=== PATIENT | female | born 1960 | race Caucasian/White ===

== ENCOUNTER 2023-01-05 12:51 | Outpatient (OUT) | payer OTHER, SELFPAY | END 2023-01-05 12:52 | disposition home or self-care (01) | LOC: PST 12:52 | PROVIDERS: PCP Family Medicine; Visit Provider Surgery | DX: Z01.818 Encounter for other preprocedural examination (principal); Z12.11 Encounter for screening for malignant neoplasm of colon ==

== ENCOUNTER 2023-01-14 09:09 | Day surgery (SDC) | payer OTHER, SELFPAY ==
--- NOTE | 2023-01-14 | OP_ITS ---
OPERATION DATE: ??01/14/2023 PREOPERATIVE DIAGNOSIS:? Colorectal screening. POSTOPERATIVE DIAGNOSIS:? Sigmoid polyps x2 with 2 mm and 3 mm polyps. PROCEDURE:? Colonoscopy to cecum with cold snare polypectomy x2. SURGEON:? Rohit Valdez M.D. ANESTHESIA:? Monitored anesthesia care. ESTIMATED BLOOD LOSS:? Less than 1 mL. INDICATIONS AND CONSENT:? Patient is a 62-year-old female who presents for colorectal screening.? Indications, risks, benefits, alternatives of proceeding with colonoscopy were explained extensively to the patient, including the risks of bleeding, colon perforation or anesthetic complications.? All of her questions were answered.? Informed consent was obtained. PROCEDURE:? Patient brought to the operating room, placed in the left lateral decubitus position.? Monitored anesthesia care was provided.? Rectal exam was performed which showed no masses or blood.? The scope was inserted into the anal canal.? Under direct visualization was advanced.? It was advanced to the cecum where cecal markings were clearly identified.? There was noted to be a good prep.? Upon withdrawal of the scope, mucosal surfaces were carefully examined.? There were no mass lesions or inflammatory changes.? There was rare sigmoid diverticula.? Within the sigmoid colon, there was noted to be a 2 mm and then a more distal 3 mm sessile polyp.? These were removed with cold snare with good hemostasis.? The scope was retroflexed in the anal canal.? There was no significant hemorrhoidal disease.? Scope was then withdrawn.? Patient tolerated procedure well, was sent to recovery room in good condition. Follow up colonoscopy will likely be in five years, but will depend on the pathology report. CC:? Iris Erickson
[2023-01-14 09:22] VITALS: BP 131/101; PULSE 117; RESP 16; TEMP 36.2; O2SAT 96; BMI 23.1
[2023-01-14 09:39] VITALS: BP 136/82
[2023-01-14] MEDS: LACTATED RINGER'S SOLUTION 1,000 ML 50 ML IV (09:39)
[2023-01-14 11:52] VITALS: BP 143/81; PULSE 86; RESP 20; TEMP 36.2; O2SAT 96
[2023-01-14 12:07] VITALS: BP 143/85; PULSE 78; RESP 18; O2SAT 97
[2023-01-14 12:22] VITALS: BP 165/78; PULSE 78; RESP 18; O2SAT 98
== END 2023-01-14 12:22 | disposition home or self-care (01) ==
PROVIDERS: PCP Family Medicine; Visit Provider Surgery
PROC: (CPT 45385; principal; 2023-01-14 09:55)
DX: Z12.11 Encounter for screening for malignant neoplasm of colon (principal); D12.5 Benign neoplasm of sigmoid colon; Z87.891 Personal history of nicotine dependence; E78.2 Mixed hyperlipidemia; Z90.49 Acquired absence of other specified parts of digestive tract; Z85.828 Personal history of other malignant neoplasm of skin; Z79.899 Other long term (current) drug therapy; J44.9 Chronic obstructive pulmonary disease, unspecified
CPT/HCPCS: 45385; 88305; J2704

== ENCOUNTER 2023-06-15 16:45 | Outpatient (OUT) | payer OTHER, SELFPAY ==
--- NOTE | 2023-06-15 17:05 | XR_ITS ---
[address] [address] Patient Name: PETRONA GORDON MRN: [id number] date: 1960 Sex: F Assigned Patient Location: [facility] Current Patient Location: Accession/Order Number: [id number] Exam Date: 06/15/2023 17:00 Report Date: 06/16/2023 07:12 At the request of: MIGUELANGEL VILLATORO Procedure: XR ribs LT min 3V w CXR1V EXAMINATION: XR ribs LT min 3V w CXR1V HISTORY: acute left side chest wall pain R07.89 COMPARISON: 10/16/2016 FINDINGS: LUNGS: No significant pulmonary parenchymal abnormalities. Hyperinflation PLEURA: No pneumothorax, effusion, or pleural thickening. MEDIASTINUM: No visible mass or adenopathy. CARDIAC: No cardiomegaly or cardiac silhouette abnormality. RIBS: No acute rib fracture OTHER: Negative. XR/XR ribs LT min 3V w CXR1V IMPRESSION: Clear lungs No acute rib fracture Electronically authenticated by: LOLIS CALLAWAY Date: 06/16/2023 07:12
== END 2023-06-15 16:46 | disposition home or self-care (01) ==
PROVIDERS: PCP Family Medicine; Visit Provider Nurse Practitioner Family
DX: R07.89 Other chest pain (principal)
CPT/HCPCS: 71101

== ENCOUNTER 2023-07-31 11:55 | Outpatient (OUT) | payer OTHER, SELFPAY ==
--- OUTSIDE RECORDS SUMMARY | 2023-07-31 11:59 | XMS_ITS | CCD ---
Author Name Unknown Address [address] [place] [address] Organization [facility] Care Team Providers Care Video Game Engineer Name Role Phone Janice Rahman Unavailable DO Rohith Archer Primary Care Provider JETHRO Rahman Attending Provider [phone] Janice Rahman Attending Unavailable Janice Rahman Admitting Unavailable Rohith Archer Primary Care Unavailable FURLONG, DR ROHITH Martin Admitting Unavailable FURLONG, DR ROHITH Martin Attending Unavailable FURLONG, DR ROHITH Martin Consulting Unavailable FURLONG, DR ROHITH Martin Primary Care Unavailable EASTOVER, DR LOLIS Haider Consulting Unavailable FURLONG, DR ROHITH Martin Primary Care Unavailable FURLONG, DR ROHITH Martin Admitting Unavailable FURLONG, DR ROHITH Martin Attending Unavailable FURLONG, DR ROHITH Martin Consulting Unavailable MARCELO, DR GABRIEL Toro Consulting Unavailable ROHITH ARCHER Referring Unavailable Rohit YEH Attending Unavailable Rohit YEH Attending Unavailable Furlong Rohith KAPOOR Primary Care Provider ANAIS MUÑOZ Attending Unavailable ROHITH ARCHER Referring Unavailable ROHITH ARCHER Primary Care Unavailable SARAY GEORGE Attending Unavailable ANAIS MUÑOZ Referring Unavailable ROHITH ARCHER Primary Care Unavailable SARAY GEORGE Attending Unavailable ANAIS MUÑOZ Referring Unavailable ROHITH ARCHER Primary Care Unavailable Allergies Allergy Classification Reported Allergen(s) Allergy Type Date of Onset Reaction(s) Facility (1 source) Unable to Assess Drug allergy (disorder) [facility] Repository (1 source) No Known Medication Allergies; Translations: [No Known Medication Allergies] Propensity to adverse reactions (disorder) [facility] Repository Medications Current Medications Medication Drug Class(es) Dates Sig (Normalized) Sig (Original) [id number] 200 actuat albuterol 0.09 mg/actuat metered dose inhaler (4 sources) beta2-Adrenergic Agonist Start: 04-23-2023 take 2 puff(s) by inhalation every six hours as needed albuterol (PROVENTIL HFA;VENTOLIN HFA) 90 mcg/actuation inhaler Inhale 2 puffs every 6 (six) hours as needed. 0 04/23/2023 Active atorvastatin 20 mg oral tablet (8 sources) HMG-CoA Reductase Inhibitor Start: 08-25-2022 End: 05-30-2023 take 1 tablet by mouth in the morning atorvastatin (LIPITOR) 20 mg tablet Indications: Mixed hyperlipidemia TAKE 1 TABLET (20 MG TOTAL) BY MOUTH IN THE MORNING 90 tablet 1 05/30/2023 Active Atorvastatin Asher cium Active azithromycin 250 mg oral tablet (1 source) Macrolide Antimicrobial Start: 11-30-2021 Azithromycin 250 MG 2 tablet on the first day, then 1 tablet daily for 4 days Orally Once a day for 5 day(s) Nov, Active calcium polycarbophil 625 mg oral tablet (4 sources) Start: 12-16-2022 polycarbophil (FIBER, CALCIUM POLYCARBOPHIL,) 625 mg tablet Take 1 tablet (625 mg total) by mouth. 0 12/16/2022 Active cyclobenzaprine hydrochloride 5 mg oral tablet (1 source) Muscle Relaxant Start: 02-14-2019 take 1 tablet by mouth every eight hours Cyclobenzaprine HCl 5 MG 1 tablet as needed Orally Three times a day Jan, Active 120 actuat formoterol fumarate 0.0048 mg/actuat / glycopyrrolate 0.009 mg/actuat metered dose inhaler (6 sources) beta2-Adrenergic Agonist take 2 puff(s) by inhalation in the morning glycopyrrolate-form oteroL (BEVESPI AEROSPHERE) 9-4.8 mcg HFA aerosol inhaler Inhale 2 puffs in the morning and 2 puffs before bedtime. 0 Active Bevespi Aerosphe re 9-4.8 MCG/ACT INHALE 2 PUFFS INTO THE LUNGS TWICE A DAY FOR 30 DAYS Inhalation for 30 Days Active meloxicam 15 mg oral tablet (3 sources) Nonsteroidal Anti-inflammatory Drug Start: 06-17-2023 End: 07-02-2023 take 1 tablet by mouth in the morning meloxicam (MOBIC) 15 mg tablet Take 1 tablet (15 mg total) by mouth in the morning for 15 days. 15 tablet 0 06/17/2023 07/02/2023 Active predniSONE 20 mg oral tablet (2 sources) Start: 05-31-2022 take 1 tablet by mouth every twelve hours predniSONE 20 MG 1 tablet Orally 2 times a day for 5 day(s) May, Active Start: 11-30-2021 take 1 tablet by espinoza th every twelve hours predniSONE 20 MG 1 tablet Orally 2 times a day for 5 day(s) Nov, Active ubidecarenone 30 mg oral capsule (4 sources) take 10 capsules by mouth once in the morning coenzyme Q10 30 mg capsule Take 200 mg by mouth in the morning. 0 Active Completed/Discontinued Medications Medication Drug Class(es) Dates Sig (Normalized) Sig (Original) methylPREDNISolone (3 sources) Corticosteroid Start: 12-08-2022 End: 06-15-2023 methylPREDNISolone (MEDROL, TITUS,) 4 mg tablet Indications: Dysfunction of left eustachian tube follow package directions 21 tablet 0 12/08/2022 06/15/2023 Discontinued (Therapy completed) Start: 12-08-2022 methylPREDNISo lone (MEDROL, TITUS,) 4 mg tablet Indications: Dysfunction of left eustachian tube follow package directions 21 tablet 0 12/08/2022 Active Start: 02-14-2019 Medrol (Titus) 4 MG half of daily dose in the morning with food and the rest at night with food Orally Jan, Active Problems Active Problems Problem Classification Problem Date Documented Da te Episodic/Chronic Cardiac dysrhythmias (2 sources) Ventricular premature complex; Translations: [Ventricular premature depolarization] Onset: 07-17-2023 07-01-2023 Chronic Disorders of lipid metabolism (5 sources) Mixed hyperlipidemia; Translations: [Mixed hyperlipidemia] Onset: 06-15-2023 05-30-2023 Chronic Immunizations and screening for infectious disease (3 sources) Encounter for screening for other viral diseases; Translations: [Contact with and (suspected) exposure to other viral communicable diseases] Onset: 04-17-2021 Resolved: 04-17-2021 Episodic Nonspecific chest pain (8 sources) Chest pain, unspecified; Translations: [Chest wall pain] Onset: 05-31-2022 Episodic Other lower respiratory disease (1 source) Cough Onset: 06-15-2023 Episodic Pleurisy; pneumothorax; pulmonary collapse (1 source) Pleurisy Episodic Retinal detachments; defects; vascular occlusion; and retinopathy (4 sources) 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; Translations: [Exudative age-related macular degeneration, right eye, stage unspecified] Onset: 07-03-2020 06-15-2023 Chronic Past or Other Problems Problem Classification Problem Date Documented Da te Episodic/Chronic Mood disorders (5 sources) Mood disorders Onset: 12-08-2022 Resolved: 06-15-2023 12-08-2022 Other nutritional; endocrine; and metabolic disorders (5 sources) Overweight; Translations: [Overweight] Onset: 08-25-2022 08-25-2022 Episodic Screening and history of mental health and substance abuse codes (9 sources) Personal history of nicotine dependence; Translations: [Ex-cigarette smoker] Onset: 08-25-2022 Episodic Spondylosis; intervertebral disc disorders; other back problems (4 sources) Cervicalgia; Translations: [CERVICALGIA] Onset: 10-12-2021 Episodic Viral infection (1 source) COVID-19 Onset: 11-30-2021 Resolved: 11-30-2021 Results Test Name Value Interpretation Reference Range Facility POCT EKGOrdered By: Cami quezada on 06-15-2023 [facility] Outside Colonoscopyon 2022 Outside Colonoscopy [id number]#1.00CD:127 Normal [facility] Pathology Noteon 01-21-2023 Pathology Note [id number] #1.00CD:127 Normal [facility] Reminderson 01-21-2023 Reminders - From: Elisa Patel LPN To: GSN - Clinical; Sent: 01/21/2023 10:07:40 EDT Show up: 12/15/2027 07:00:00 EDT Subject: colonoscopy recall Due Date/Time: 01/15/2028 07:00:00 EDT Reminder/Recall Patient due for surveillance colonoscopy 01/15/2028. [facility] Insurance Correspondenceon 0 12-26-2022 Insurance Correspondence [id number]#1.00CD:127 [facility] Consent for Procedure/Surger yon 12-17-2022 Consent for Procedure/Surgery [id number] #1.00CD:127 [facility] Facesheeton 12-17-2022 Facesheet [id number] #1.00CD:127 [facility] Ambulatory Visit Summaryon 0 12-16-2022 Ambulatory Visit Summary PETRONA GORDON :1960 Visit Date:12/16/2022 Ambulatory Visit Instructions Your Diagnosis Screening for malignant neoplasm of colon Your Care Team Attending Physician - Rohit YEH MD Primary Care Physician - ROHITH ARCHER DO Referring Physician - ROHITH ARCHER DO This Is Your Medications List Contact prescribing physician if questions or concerns atorvastatin (atorvastatin 20 mg Tab) polycarbophil (Fiber Tabs 625 mg oral tablet) Procedures Performed Cholecystectomy, Excision of basal cell carcinoma, Excision of cyst, T-tube track gallstone extraction, Tonsillectomy, Tubal ligation. Discharge Vitals Heart Rate (Peripheral) 62 Respiratory Rate 16 Blood Pressure 114/64 Height 160 cm Height 63 in Weight 62.3 kg Weight 137.06 lb BMI 24.34 Medications What How Much When Instructions Unchanged atorvastatin (atorvastatin 20 mg Tab) 1 Tablets By Mouth Every day Contact prescribing physician if questions or concerns Unchanged polycarbophil (Fiber Tabs 625 mg oral tablet) 1 Tablets By Mouth Every day Contact prescribing physician if questions or concerns Allergies No Known Allergies No Known Medication Allergies Problems Ongoing - Any problem that you are currently receiving treatment for. BMI 24.0-24.9, adult Ex-cigarette smoker Macular degeneration Mixed hyperlipidemia Overweight Screening for malignant neoplasm of colon Normal [facility] Physician Referralon 023 Physician Referral [id number] #1.00CD:127 Normal [facility] CT LUNG CANCER SCREENINGon 0 09-29-2022 CT LUNG CANCER SCREENING EXAMINATION: CT LUNG CANCER SCREENING HISTORY: Nicotine dependence COMPARISON: CT LUNG CANCER SCREENING 09/26/2021, 07/30/2019 TECHNIQUE: Axial, Coronal, and Sagittal images were created without the administration of IV contrast material. Dose reduction techniques were achieved by using automated exposure control and/or adjustment of mA and/or kV according to patient size and/or use of iterative reconstruction technique. FINDINGS: LUNGS: No visible pulmonary disease. Stable appearance of a few tiny questionable densities; no suspicious nodules. PLEURA: No mass, effusion, or pneumothorax. VASCULATURE: No abnormality. JOSE: No mass or pathologic adenopathy. MEDIASTINUM: No mass or pathologic adenopathy. CARDIAC: No enlargement, pericardial thickening, or significant calcification. AORTA: No aneurysm or dissection. CHEST WALL: No mass or axillary adenopathy BONES: No bone lesion or fracture. LIMITED ABDOMEN: No suspicious findings. Limited images of the upper abdomen. OTHER: Negative. IMPRESSION: 1. Lung-RADS Category 1 Negative. No nodules and definitely benign nodules. Continue annual screening with LDCT in 12 months. Electronically authenticated by: GABRIEL ROBERTSON Date: 2022-09-29 17:03 Normal [facility] COVID + FLU Quick Testingon 05-31-2022 SARS-CoV-2 (COVID-19) RNA MILAN+probe Ql (Unsp spec) Negative [employer] Other COVID + FLU Quick Testing Negative [employer] Other XR chest 2V*on 05-31-2022 XR chest 2V* [facility] [place] [address] [place] [address] XRay Report Signed Patient: Petrona Gordon MR#: [id number] : 1960 Acct:[id number] Age/Sex: 61 / F ADM Date: 05/31/22 Loc: XDUCLY Room: Type: [facility] Attending Dr: Jaincekaylee MORELOS Copies to: JETHRO Robles Ordering Provider: JETHRO Robles Date of Service: 05/31/22 XR/XR chest 2V*: COUGH PA AND LATERAL CHEST: CLINICAL HISTORY: Chest tightness on the right and productive cough COMPARISON: None The lungs are hyperinflated. There are minor chronic changes. There is no focal parenchymal consolidation, effusion or pneumothorax. The cardiac, hilar and mediastinal silhouettes are within normal limits. There is no vascular congestion. The visualized bony thorax is intact. Endplate spurring is present. XR/XR chest 2V* IMPRESSION: OBSTRUCTIVE LUNG DISEASE. NO ACUTE CARDIOPULMONARY ABNORMALITY. Impression dictated by: Keyonna Head M.D.05/31/2022 1:14 PM Dictation Location: [place] [address] Transcribed By: LAUREEN 05/31/22 1314 Dictated By: Keyonna Head MD 05/31/22 1313 Signed By: 05/31/[address] [facility] XR chest 2V* [facility] [employer] Other XR chest 2V* [facility] [employer] Other XR chest 2V* [address] [place] [address] [employer] Other XR chest 2V* [place] [address] [facility] [employer] Other XR chest 2V* XRay Report [employer] Other XR chest 2V* Signed [employer] Other XR chest 2V* Patient: Petrona Gordon MR#: [id number] [employer] Other XR chest 2V* [id number] [employer] Other XR chest 2V* : 1960 Acct:[id number] [employer] Other XR chest 2V* Age/Sex: 61 / F ADM Date: 05/31/22 [employer] Other XR chest 2V* Loc: XDUCLY Room: Type: REG CLI [employer] Other XR chest 2V* Attending Dr: Janice MORELOS [employer] Other XR chest 2V* Copies to: JETHRO Robles [employer] Other XR chest 2V* Ordering Provider: JETHRO Robles [employer] Other XR chest 2V* Date of Service: 05/31/22 [employer] Other XR chest 2V* XR/XR chest 2V*: COUGH [employer] Other XR chest 2V* PA AND LATERAL CHEST: [employer] Other XR chest 2V* CLINICAL HISTORY: Chest tightness on the right and productive cough [employer] Other XR chest 2V* COMPARISON: None [employer] Other XR chest 2V* The lungs are hyperinflated. There are minor chronic changes. There is no focal parenchymal [employer] Other XR chest 2V* consolidation, effusion or pneumothorax. The cardiac, hilar and mediastinal silhouettes are within [employer] Other XR chest 2V* normal limits. There is no vascular congestion. The visualized bony thorax is intact. Endplate [employer] Other XR chest 2V* spurring is present. No rt [employer] Other XR chest 2V* XR/XR chest 2V* [employer] Other XR chest 2V* IMPRESSION: [employer] Other XR chest 2V* OBSTRUCTIVE LUNG DISEASE. [employer] Other XR chest 2V* NO ACUTE CARDIOPULMONARY ABNORMALITY. [employer] Other XR chest 2V* Impression dictated by: Keyonna Head M.D.05/31/2022 1:14 PM [employer] Other XR chest 2V* Dictation Location: [place] [address] [employer] Other XR chest 2V* Transcribed By: [facility] 05/31/22 131 [employer] Other XR chest 2V* Dictated By: Keyonna Head MD 05/31/22 1313 [employer] Other XR chest 2V* Signed By: [employer] Other XR chest 2V* 05/31/22 131 [employer] [facility] [employer] Other COVID Quick Testingon 2021 Result Positive [employer] Other XR CSPINE 2_3 VIEWSon 2021 XR CSPINE 2_3 VIEWS EXAMINATION: XR CSPINE 2_3 VIEWS HISTORY: Neck pain COMPARISON: No relevant comparison available. FINDINGS: BONES: Normal alignment of the cervical vertebral bodies with no acute fracture. 2 mm retrolisthesis of C5.. Mild to moderate degenerative spondylosis and facet osteoarthropathy, most significant along the posterior margin of C5 encroaching on the central canal 3 mm DISC SPACES: Multilevel disc space narrowing, moderate at C5-C6 and C6-C7 PARASPINOUS: Negative. No paraspinous abnormality is seen. OTHER: Negative. IMPRESSION: [id number] degenerative changes most significant at C5-C6 Electronically authenticated by: LOLIS CALLAWAY Date: 2021-10-14 07:09 Normal [facility] COVID Quick Testingon 2020 Result Negative [employer] Other Vital Signs Date Time Vital Sign Value Performing Clinician Facility 06-15-2023 15:31-0500 Body height 160 cm Anais Muñoz ALVA-SHIP'S MASTER Work Phone: [employer] 06-15-2023 15:31-0500 Body mass index (BMI) [Ratio] 24.13 kg/m2 Anais [facility]ORANSHIP'S MASTER [facility] 06-15-2023 15:31-0500 Body temperature 97.81 [degF] Anais Muñoz APRNMaishaSHIP'S MASTER [facility] 06-15-2023 15:31-0500 Body weight 61.78 kg Anais MORANSHIP'S MASTER [facility] 06-15-2023 15:31-0500 Diastolic blood pressure 60 mm[Hg] Anais MORANSHIP'S MASTER [facility] 06-15-2023 15:31-0500 Heart rate 81 /min Anais MORANSHIP'S MASTER [facility] 06-15-2023 15:31-0500 SaO2% (BldA) [Mass fraction] 94 % Anais MORANSHIP'S MASTER [facility] 06-15-2023 15:31-0500 Systolic blood pressure 110 mm[Hg] Anais MORANSHIP'S MASTER Work Phone: [employer] 05-31-2022 13:30-0500 Body height 160.02 cm Janice Rahman Other [employer] Other 05-31-2022 13:30-0500 Body mass index (BMI) [Ratio] 26.04 kg/m2 Janice Rahman Other [employer] Other 05-31-2022 13:30-0500 Body temperature 97.8 [degF] Janice Rahman Other [employer] Other 05-31-2022 13:30-0500 Body weight 66.68 kg Janice Lacey Other [employer] Other 05-31-2022 13:30-0500 Diastolic blood pressure 74 mm[Hg] Janice Lacey Other [employer] Other 05-31-2022 13:30-0500 Respiratory rate 18 /min Janice Lacey Other [employer] Other 05-31-2022 13:30-0500 SaO2% (BldA) [Mass fraction] 98 % Janice Lacey Other [employer] Other 05-31-2022 13:30-0500 Systolic blood pressure 118 mm[Hg] Janice Lacey Other [employer] Other 11-30-2021 15:35-0400 Body height 160.02 cm Janice Lacey Other [employer] Other 11-30-2021 15:35-0400 Body mass index (BMI) [Ratio] 25.68 kg/m2 Janice Lacey Other [employer] Other 11-30-2021 15:35-0400 Body temperature 97.7 [degF] Janice Lacey Other [employer] Other 11-30-2021 15:35-0400 Body weight 65.77 kg Janice Lacey Other [employer] Other 11-30-2021 15:35-0400 Respiratory rate 18 /min Janice Lacey Other [employer] Other 11-30-2021 15:35-0400 SaO2% (BldA) [Mass fraction] 96 % Janice Rahman Other [employer] Other Encounters Encounter Date Encounter Type Care Provider Facility Start: 07-17-2023 End: 07-18-2023 ambulatory [facility] Start: 07-01-2023 Orders Only Anais Muñoz INTERACTIVE GRAPHIC DESIGNER-SHIP'S MASTER Work Phone: [facility] Comment on above: Other chest pain (Pr imary Dx); Ventricular premature depolarization Start: 06-29-2023 End: 06-30-2023 ambulatory [facility] Start: 06-17-2023 Orders Only Anais Muñoz INTERACTIVE GRAPHIC DESIGNER-SHIP'S MASTER Work Phone: [facility] Comment on above: Acute chest wall erwin n (Primary Dx) Other chest pain (Pr imary Dx) Start: 06-15-2023 End: 06-15-2023 ambulatory [facility] Start: 06-15-2023 End: 06-15-2023 Office outpatient visit 15 minutes Anais Muñoz INTERACTIVE GRAPHIC DESIGNER-SHIP'S MASTER Work Phone: [facility] Comment on above: Acute chest wall erwin n (Primary Dx) Start: 05-30-2023 Refill Rohith gramajo DO Work Phone: [facility] Comment on above: Mixed hyperlipidemia Start: 01-14-2023 End: 01-15-2023 ambulatory Rohit YEH Facility:CD:[id number] Start: 12-16-2022 End: 12-17-2022 ambulatory ROHITH ARCHER Facility:[facility] Start: 11-27-2022 ambulatory ROHITH ARCHER Facility :[facility] Start: 09-29-2022 End: 09-30-[address] ROHITH ARCHER Facility:[facility] Start: 05-31-2022 End: 05-31-2022 ambulatory Janice Rahman Facility:[facility] Start: 05-31-2022 Office outpatient vi sit 25 minutes Janicekaylee Rahman [facility] Start: 05-31-2022 End: 05-31-2022 ambulatory DO Rohith Lakelong Work Phone: [facility] Work Phone: Start: 05-31-2022 End: 05-31-2022 Patient encounter procedure DO Rohith Lakelong Work Phone: [facility] Work Phone: Start: 11-30-2021 End: 11-30-2021 ambulatory Janice Rahman Other [employer] Other Start: 11-30-2021 Office outpatient vi sit 15 minutes Janicekaylee Rahman [facility] Start: 10-12-2021 End: 10-13-[address] ROHITH ARCHER Facility: Start: 04-17-2021 End: 04-17-2021 ambulatory Janice Rahman Other [employer] Other Start: 04-17-2021 Office outpatient vi sit 5 minutes Janicekaylee Rahman [facility] Procedures Date Procedure Procedure Detail Performing Clinician Start: 06-15-2023 Ecg routine ecg w/le ast 12 lds w/i&r Anais Muñoz INTERACTIVE GRAPHIC DESIGNER-SHIP'S MASTER Work Phone: Start: 06-15-2023 Adult depression scr eening assessment Anais Muñoz INTERACTIVE GRAPHIC DESIGNER-SHIP'S MASTER Work Phone: Start: 01-14-2023 Colonoscopy Rohith Fur long DO Work Phone: Start: 12-08-2022 Adult depression scr eening assessment Rohith Furlong DO Work Phone: Start: 05-31-2022 Plain chest X-ray DO De nnis Furlong Work Phone: Plan of Treatment Date Care Activity Detail Author Start: 01-14-2033 Screening for malign ant neoplasm of colon Colonoscopy [facility] Start: 03-22-2029 DTaP,Tdap and Td Vaccines (2 - Td or Tdap) DTaP,Tdap and Td Vaccines (2 - Td or Tdap) [facility] Start: 06-29-2024 Adult BMI Screening Adult BMI Screen ing [facility] Start: 06-15-2024 Adult BMI Screening Adult BMI Screen ing [facility] Start: 06-15-2024 Depression Screening Depression Scre ening [facility] Start: 06-15-2024 Tobacco Screening Tobacco Screening [facility] Start: 12-09-2023 Adult BMI Screening Adult BMI Screen ing [facility] Start: 12-09-2023 Depression Screening Depression Scre ening [facility] Start: 12-09-2023 Tobacco Screening Tobacco Screening [facility] Start: 07-01-2023 End: 07-01-2024 Echo stress treadmill W/O contrast Echo stress treadmill W/O contrast Cardiac Services Routine Other chest pain Ventricular premature depolarization Expected: 07/01/2023, Expires: 07/01/2024 [employer] Work Phone: Comment on above: Expected: 07/01/2023 , Expires: 07/01/2024 Start: 06-17-2023 End: 06-17-2024 Exercise stress test study Stress test (exercise only) Cardiac Services Routine Other chest pain Expected: 06/17/2023, Expires: 06/17/2024 [employer] Work Phone: Comment on above: Expected: 06/17/2023 , Expires: 06/17/2024 Start: 06-15-2023 End: 06-15-2024 XR Ribs - left Views and Chest PA X-ray ribs left 3 views with pa chest Imaging Routine Acute chest wall pain Expected: 06/15/2023, Expires: 06/15/2024 [employer] Work Phone: Comment on above: Expected: 06/15/2023 , Expires: 06/15/2024 Start: 01-23-2023 COVID-19 Vaccine () COVID-19 Vaccine () [facility] Start: 01-23-2023 Influenza vaccination Influenza Vacc ine [facility] Start: 2010 Administration of varicella zoster vaccine Zoster (Shingles) Vaccine (1 of 2) [facility] Start: 1981 Screening for malign ant neoplasm of cervix Pap Smear [facility] Immunizations Immunization Date Immunization Notes Care Provider Greg marquez 03-22-2019 influenza virus vaccine, unspecified formulation Rohith Archer DO Work Phone: [facility] Payers Date Payer Category Payer Self-pay [id number] 2016 Private Health Insurance [employer]I ALANIS POS II [id number] 2016-Present [phone] [address] [place] [address] [id number] 1960 Unknown [id number] 1960 Unknown [id number] 1960 Unknown [id number] 1960 Unknown [id number] 1960 Unknown [id number] 1960 Unknown [id number] .1286 1960 Unknown [id number] 1959 Private Health Insurance [id number] Private Health Insurance 3 [id number] Unknown [id number] .531 Social History Date Type Detail Facility Unknown if ever smoked [facility] [facility] [employer] Other Start: 08-25-2022 End: 06-15-2023 Sex Assigned At [facility] [employer] Other Start: 1960 Sex Assigned At Female [facility] Start: 08-25-2022 Tobacco smoking status NHIS Ex-smoker [facility] Start: 11-17-1973 End: 11-28-2020 History of tobacco use Current smoker [facility] Start: 11-17-1973 End: 11-28-2020 History of tobacco use Cigarette Smoker [facility] Start: 08-25-2022 End: 06-15-2023 Cigarettes smoked current (pack per day) - Reported 1 [facility] Start: 08-25-2022 Tobacco use and exposure Smokeless tobacco non-user [facility] Start: 01-22-2023 End: 06-29-2023 Alcohol intake Lifetime non-drinker (finding) [facility] Do you belong to any clubs or organizations such as adventism groups, unions, fraternal or athletic groups, or school groups? No [facility] Are you now , , , , never or living with a partner? Never [facility] How often to you hav e a drink containing alcohol? Never [facility] How many standard dr inks containing alcohol do you have on a typical day? Patient does not drink [facility] Do you feel stress - tense, restless, nervous, or anxious, or unable to sleep at night because your mind is troubled all the time - these days [OSQ] Only a little [facility] Start: 1960 Sex Assigned At Not on file [facility] Clinical Notes 04-17-2021 to 06-15-2023 Anais Muñoz, ALVA-SHIP'S MASTER - 06/15/2023 3:20 PM EST Note Date & Type Note Facility 06-15-2023 History of Present illness Narrative Subjective Patient ID: Petrona Gordon is a 62 y.o. female. She started with what she thought was a chest cold about 3 weeks ago It hurts when she moves a certain way It covarrubias\sn't hurt to take in a deep breath just when she moves, it does hurt at times when she coughs She did fall on her knee at work but no injury to her knee Initial symptoms were cough and chest discomfort and she took tylenol cold No fever or chills No loss of appetite She is an ex-smoker and had her screening lung scan in September and she does this yearly Cough is somewhat productive - and this is typical for her The pain goes all the way thru to her back and is right in her shoulder blade Denies any shortness of breath and it is not exertional She denies any indigestion or heartburn but the pain has been very persistent and is worsening rather than getting better She points to the point anterior left chest wall and posterior scapula Lifting her left arm above her head reproduces the pain She is up to date on her mammogram as well The following portions of the patient's history were reviewed and updated as appropriate: allergies, current medications, past family history, past medical history, past social history, past surgical history, problem list, and medication reconciliation was completed including current medication and post discharge medication. Review of Systems Objective Physical Exam Vitals reviewed. Constitutional: Appearance: She is normal weight. HENT: Head: Normocephalic. Mouth/Throat: Mouth: Mucous membranes are moist. Comments: Voice raspy Eyes: Conjunctiva/sclera: Conjunctivae normal. Neck: Vascular: No carotid bruit. Cardiovascular: Rate and Rhythm: Normal rate and regular rhythm. Pulses: Normal pulses. Heart sounds: Normal heart sounds. No murmur heard. Pulmonary: Effort: Pulmonary effort is normal. Breath sounds: Normal breath sounds. Musculoskeletal: General: No tenderness. Right lower leg: No edema. Left lower leg: No edema. Comments: Unable to reproduce chest wall pain until she lifted her left arm to shoulder level Lymphadenopathy: Cervical: No cervical adenopathy. Skin: General: Skin is warm and dry. Capillary Refill: Capillary refill takes less than 2 seconds. Neurological: Mental Status: She is alert and oriented to person, place, and time. Psychiatric: Mood and Affect: Mood normal. Thought Content: Thought content normal. Assessment/Plan Petrona was seen today for cough. Diagnoses and all orders for this visit: Acute chest wall pain - X-ray ribs left 3 views with pa chest; Future - POCT EKG Her EKG today was unremarkable Will get an x-ray of her chest and left ribs for further evaluation Review of her CT chest 10/14 did not reveal any sources of concern Unsure of the etiology of the pain, does not seem to be cardiac, pulmonary, or epigastric however if no source of pathology is noted on the x-ray would get stress test No reproducible pain except with movement ZI Casey 06/15/23 1741 documented in this encounter [facility] 12-16-2022 Note Chief Complaint consultation for screening colonoscopy HPI Staff 62 year old female presents on consultation from Dr. Archer for screening colonoscopy. Denies abdominal or rectal pain. No rectal bleeding or change in bowel habits. Denies nausea or vomiting. No unexplained weight loss. Never had colonoscopy in the past. No known family history of colon cancer. History of Present Illness 62 yo female with h/o hyperlipidemia, COPD, referred for colorectal screening; denies change in bms or blood in stools; no abdominal complaints; denies asa or NSAID use, no SBE prophylaxis; abdominal operations significant for open cholecystectomy and tubal ligation, no previous colonoscopy; no fmhx of GI malignancy or IBD; former smoker, quit 2 years ago. Review of Systems PHQ Score Initial Depression Screen Score: 0 ROS - Provider Constitutional: no fever, no sweats, no weight loss. Eyes: yes glasses, no blurred vision, no visual loss. ENMT: no dentures, no hoarseness, no swallowing difficulties, no hearing loss, no ear infection(s), no nose bleeds. Cardiovascular: normal blood pressure, no chest pain, regular heartbeat, no heart murmur. Respiratory: no shortness of breath, no cough, no asthma, no wheezing. Gastrointestinal: no nausea, no vomiting, no diarrhea, no constipation, no blood in stool, no change in bowel habits, no abdominal pain, no hepatitis. Genitourinary: no kidney stones, no urine infection, no dysuria. Musculoskeletal: no pain, no weakness. Skin: no changing moles, no rash, no skin lumps. Neurologic: no seizures, no epilepsy, no headache. Psychiatric: no emotional or psychiatric problem. Heme/Lymph: no bleeding problems, no anemia, no blood clots, no transfusions. Allergy/Immunologic: no swollen lymph nodes/glands, no IV drug abuse. Other: Additional ROS info: Except as noted in the above Review of Systems and in the History of Present Illness, all other systems have been reviewed and are negative or noncontributory. Physical Exam Vitals & Measurements HR: 62(Peripheral) RR: 16 BP: 114/64 HT: 63 in HT: 160 cm WT: 62.3 kg WT: 137.06 lb BMI: 24.34 HEENT: normal conjunctiva, sclera clear, no scleral icterus, EOM intact, PERRLA, oral mucosa moist without lesions. Neck: trachea midline, no mass, symmetric, no thyromegaly or nodules, no adenopathy Respiratory: lungs CTA, respirations non labored. Cardiovascular: regular rate and rhythm, no murmur, no pedal edema or varicosities. Gastrointestinal: soft, non distended, no tenderness, no masses, no palpable hernias, diastasis recti no, no hepatosplenomegaly; normal bs Lymphatic: no cervical adenopathy, no supraclavicular adenopathy. Musculoskeletal: normal gait, digits and nails without infection, nodes, cyanosis, clubbing. Skin: no rashes, no lesions, no ulcers, no subcutaneous nodules, induration. Psychiatric/Neuro: oriented to time, place, person, judgement normal, affect appropriate for age, insight intact, no focal deficits. Tests: review of old records completed, Discussed surgical options, risks, and possible complications with patient. Assessment/Plan 1. Screening for malignant neoplasm of colon (Z12.11: Encounter for screening for malignant neoplasm of colon) plan colonoscopy under anesthesia, informed consent obtained. Follow-up No qualifying data available Problem List/Past Medical History Ongoing BMI 24.0-24.9, adult Ex-cigarette smoker Macular degeneration Mixed hyperlipidemia Overweight Screening for malignant neoplasm of colon Historical No qualifying data Procedure/Surgical History Cholecystectomy, Excision of basal cell carcinoma, Excision of cyst, T-tube track gallstone extraction, Tonsillectomy, Tubal ligation. Medications atorvastatin 20 mg Tab, 20 mg= 1 tab(s), Oral, Daily Fiber Tabs 625 mg oral tablet, 625 mg= 1 tab(s), Oral, Daily Allergies No Known Allergies No Known Medication Allergies Social History Alcohol - Denies Alcohol Use, 12/16/2022 Substance Abuse - Denies Substance Abuse, 12/16/2022 Tobacco Former smoker, quit more than 30 days ago Tobacco Use:. Never Smokeless Tobacco Use:. Cigarettes, 1 per day. Started age 13.0 Years. Stopped age 60 Years., 12/16/2022 Family History Acute myocardial infarction: Sister and Brother. COPD: Sister. Heart disease: Father. Primary malignant neoplasm of lung: Mother. Immunizations Vaccine Date Status SARS-CoV-2 (COVID-19) mRNA-1273 vaccine 04/23/2021 Recorded SARS-CoV-2 (COVID-19) mRNA-1273 vaccine 10/18/2020 Recorded SARS-CoV-2 (COVID-19) mRNA-1273 vaccine 09/20/2020 Recorded [facility] Comment on above: Result Comment: Elec tronically Signed By: RAO RODRÍGUEZ, Rohit Mckeon.cassia\Date and Time Signed: 12/16/22 15:14 EDT 05-31-2022 Evaluation note Encounter Date Diagnosis Assessment Notes May, Contact with and (suspected) exposure to other viral communicable diseases (ICD-10 - Z20.828) May, Pleurisy (ICD-10 - R09.1) Pleurisy home care material was printed Drink plenty fluids, get plenty of rest. Continue home medications as prescribed. Take the prednisone as prescribed until gone. Follow-up with your family physician if no improvement in 2 to 3 days. May, Right-sided chest pain (ICD-10 - R07.9) [employer] Other 07-09-2022 Evaluation note* Encounter Date Diagnosis Assessment Notes Treatment Notes Treatment Clinical Notes Nov, COVID-19 (ICD-10 - U07.1) Discharge Instructions for COVID-19 (Suspected or Confirmed ) material was printed Drink plenty fluids, get plenty of rest. Take the prednisone and Zithromax as prescribed until gone. You must quarantine for 5 days after the onset of your symptoms, and then you must wear a mask when out and about for the subsequent 5 days. Take Tylenol or Motrin as needed for aches pains or fevers. Follow-up with your family physician if no improvement in 2 to 3 days. Nov, Other Additional time spent conducting pre-visit phone call, screening for symptoms, instructions on social distancing, application and removal of PPE, and cleaning of examination room, equipment and supplies was performed. Patient education given for testing methodology and results. Patient care instructions given in writing by [facility] document. [employer] Other 11-24-2021 Evaluation note* Encounter Date Diagnosis Assessment Notes Treatment Notes Treatment Clinical Notes Mar, Encounter for screening for other viral diseases (ICD-10 - Z11.59) Mar, Other Additional time spent conducting pre-visit phone call, screening for symptoms, instructions on social distancing, application and removal of PPE, and cleaning of examination room, equipment and supplies was preformed. Patient education given for testing methodology and results. Patient care instructions given in writting by [facility] document. [employer] Other Evaluation noteNo assessment information available [facility] Work Phone: Evaluation note* Diagnosis Mixed hyperlipidemia documented in this encounter [employer] [facility]* Diagnosis Acute chest wall pain- Primary [facility]* Diagnosis Acute chest wall pain- Primary documented in this encounter [facility]* Diagnosis Other chest pain- Primary documented in this encounter [facility]* Diagnosis Other chest pain- Primary Ventricular premature depolarization Other premature beats documented in this encounter [facility] System[facility] general Narrative - Reported* Type Description Date Surgical History tonsillectomy Surgical History cholecystectomy Surgical History tubal ligation Surgical History cyst removal from neck Hospitalization History see above [employer] Other InstructionsNot on filedocumented in this encounter [facility] on filedocumented in this encounter [facility] SystemInstructionsNot on filedocumented in this encounter [facility] filed[facility] this [facility] Advance Directives No Advanced Directives Records Found Advance Directive Response Recorded Date/ Time Advance Directives No January 6:06pm Summary Purpose Family History No Family History Records FoundNo Family History Records FoundNo Family History Records FoundNo Family History Records FoundNo Family History Records Found Reason for Referral Specialty Diagnoses / Procedures Referred By Contac t Referred To Contact Diagnoses Other chest pain Ventricular premature depolarization Procedures Echo stress treadmill W/O contrast Anais Muñoz, INTERACTIVE GRAPHIC DESIGNER-SHIP'S [employer]STER [address] [place] [address] Referral ID Status Reason Start Date Expiration Date V isits Requested Visits Authorized [id number] Pending Review 07/01/2023 06/30/2024 5 5 Specialty Diagnoses / Procedures Referred By Contac t Referred To Contact Diagnoses Other chest pain Procedures Stress test (exercise only) Toni Jany, INTERACTIVE GRAPHIC DESIGNER-[employer]STER [address] [place] [address] Referral ID Status Reason Start Date Expiration Date V isits Requested Visits Authorized [id number] Pending Review 06/17/2023 06/16/2024 5 5 Additional Source Comments REASON FOR VISIT (unrecogniz ed section and content) Reason Comments Med Refill Reason Comments Cough Chest pain. 3 weeks Care Teams (unrecognized sec tion and content) Team Status: Inactive Member Role Status Dates Rohith Archer DO Primary Care Provider Active JETHRO Steele Attending Provider Active Team Status: Active Member Role Status Dates Rohith Archer DO Primary Care Provider Active Video Game Engineer Relationship Specialty Start Date End Date Rohith Archer DO [address], [facility] [place] [address] PCP - General Family Medicine 06/02/22 Video Game Engineer Relationship Specialty Start Date End Date Rohith Archer DO [address], [place] [address] PCP - General Family Medicine 06/02/22 Video Game Engineer Relationship Specialty Start Date End Date Rohith Archer DO [address], [place] [address] PCP - General Family Medicine 06/02/22 Video Game Engineer Relationship Specialty Start Date End Date Rohith Archer DO [address], [place] [address] PCP - General Family Medicine 06/02/22 Goals (unrecognized section and content) Goals may be documented in a n alternate section INFORMATION SOURCE (unrecogn ized section and content) DATE CREATED AUTHOR 06/18/2022 [facility] DATE CREATED AUTHOR AUTHOR'S ORGANIZ ATION 10/03/2022 [facility] DATE CREATED AUTHOR AUTHOR'S ORGANIZ ATION 01/22/2023 [facility] DATE CREATED AUTHOR AUTHOR'S ORGANIZ ATION 06/18/2023 [facility] DATE CREATED AUTHOR AUTHOR'S ORGANIZ ATION 07/24/2023 [facility] FOR RECORDS PERTAINING TO PATIENTS WHO ARE OR HAVE BEEN ENROLLED IN A CHEMICAL DEPENDENCY/SUBSTANCEABUSE PROGRAM, SOME INFORMATION MAY BE OMITTED. This clinical summary was aggregated from multiple sources. Caution should be exercised in using it in the provision of clinical care. This summary normalizes information from multiple sources, and as a consequence, information in this document may materially change the coding, format and clinical context of patient data. In addition, data may be omitted in some cases. CLINICAL DECISIONS SHOULD BE BASED ON THE PRIMARY CLINICAL RECORDS. [employer] provides no warranty or guarantee of the accuracy or completeness of information in this document.
--- NOTE | 2023-07-31 12:06 | XR_ITS ---
The [address] [address] Patient Name: PETRONA GORDON MRN: [id number] date: 1960 Sex: F Assigned Patient Location: [facility] Current Patient Location: Accession/Order Number: [id number] Exam Date: 07/31/2023 12:15 Report Date: 08/01/2023 07:37 At the request of: RELL JEFFERSON Procedure: XR shoulder LT min 2V PROCEDURE: XR shoulder LT min 2V HISTORY: Acute Left Shoulder Pain M25.512 ; left axilla and proximal humerus pain; no known injury COMPARISON: None. FINDINGS: BONES:No fracture, acute abnormality, or significant arthropathy. SOFT TISSUES:No visible soft tissue swelling. EFFUSION:None visible. OTHER: Negative. XR/XR shoulder LT min 2V IMPRESSION: 1. No acute bone abnormality. 2. Mild degenerative changes of the acromioclavicular joint. Electronically authenticated by: GABRIEL ROBERTSON Date: 08/01/2023 07:37
== END 2023-07-31 11:56 | disposition home or self-care (01) ==
LOC: RAD 11:56
PROVIDERS: PCP Family Medicine; Visit Provider Family Medicine
DX: M25.512 Pain in left shoulder (principal)
CPT/HCPCS: 73030

== ENCOUNTER 2023-10-06 15:03 | Outpatient (OUT) | payer OTHER, SELFPAY ==
--- NOTE | 2023-10-06 15:06 | CT_ITS ---
[address] [address] Patient Name: PETRONA GORDON MRN: [id number] date: 1960 Sex: F Assigned Patient Location: CT Current Patient Location: Accession/Order Number: [id number] Exam Date: 10/06/2023 15:08 Report Date: 10/07/2023 07:20 At the request of: RELL JEFFERSON Procedure: CT lung screening low-dose EXAMINATION: CT lung screening low-dose HISTORY: Ex-cigarette smoker Z87.891 COMPARISON: 09/29/2022 TECHNIQUE: Axial, Coronal, and Sagittal images were created without the administration of IV contrast material. Dose reduction techniques were achieved by using automated exposure control and/or adjustment of mA and/or kV according to patient size and/or use of iterative reconstruction technique. FINDINGS: LUNGS: Mild centrilobular emphysema with an upper lobe predominance. Minimal pleural parenchymal scarring in the lung apices. No significant pulmonary nodule or mass PLEURA: No mass, effusion, or pneumothorax. VASCULATURE: No abnormality. JOSE: No mass or pathologic adenopathy. MEDIASTINUM: No mass or pathologic adenopathy. CARDIAC: No enlargement, pericardial thickening, or significant calcification. CORONARY ARTERIES: Coronary calcifcations are absent. AORTA: No aneurysm or dissection. CHEST WALL: No mass or axillary adenopathy BONES: No bone lesion or fracture. LIMITED ABDOMEN: No suspicious findings. Limited images of the upper abdomen. OTHER: Negative. CT/CT lung screening low-dose IMPRESSION: LUNG SCREENING: Lung-RADS Category 1 Negative. No nodules and definitely benign nodules. Continue annual screening with LDCT in 12 months. Electronically authenticated by: LOLIS CALLAWAY Date: 10/07/2023 07:20
--- NOTE | 2023-10-06 15:09 | MM_ITS ---
Patient Name: PETRONA GORDON MR#: [id number] : 1960 Exam Date: 10/06/2023 Ordering Doctor: DR RELL JEFFERSON RADIOLOGY REPORT PROCEDURE: MM TOMOSYNTHESIS SCREENING BI COMPARISON: MG MAMM SCREEN 3D TRISTIN CAD, 09/26/2021. MG MAMM TRISTIN DIAG W CAD, 06/05/2020. MG MAMM TRISTIN DIAG FU, 10/24/2019. MG MAMM SCREEN TRISTIN W CAD, 10/14/2019. INDICATIONS: Encounter for screening mammogram for malignant neoplasm of Calculator Name NCI Breast Cancer Risk Assessment Tool 5 Year Breast Cancer Risk 1.40% Lifetime Breast Cancer Risk 6.50% Personal Breast Cancer No Personal Ovarian Cancer No Treatments None Family Cancers Mother with lung cancer at age 45. LOCATION: [facility] BREAST COMPOSITION: There are scattered areas of fibroglandular density. FINDINGS: DIAGNOSTIC CATEGORY 2--BENIGN FINDING: RIGHT BREAST: No significant suspicious finding. Stable, chronic asymmetries and surgical clips. LEFT BREAST: No significant suspicious finding. No significant change has occurred. RECOMMENDATIONS: ROUTINE MAMMOGRAM AND CLINICAL EVALUATION IN 12 MONTHS. PLEASE NOTE: A NORMAL MAMMOGRAM DOES NOT EXCLUDE THE POSSIBILITY OF BREAST CANCER. A CLINICALLY SUSPICIOUS PALPABLE LUMP SHOULD BE BIOPSIED. Dictated by: Jaden Cunningham M.D. on 10/06/2023 at 15:53 Approved by: Jaden Cunningham M.D. on 10/06/2023 at 15:55
== END 2023-10-06 15:04 | disposition home or self-care (01) ==
LOC: CT 15:03
PROVIDERS: PCP Family Medicine; Visit Provider Family Medicine
DX: Z12.31 Encounter for screening mammogram for malignant neoplasm of breast (principal); Z87.891 Personal history of nicotine dependence; Z80.1 Family history of malignant neoplasm of trachea, bronchus and lung
CPT/HCPCS: 71271; 77063; 77067

== ENCOUNTER 2024-03-03 08:53 | Outpatient (OUT) | payer OTHER, SELFPAY ==
--- OUTSIDE RECORDS SUMMARY | 2024-03-03 08:58 | XMS_ITS | CCD ---
Author Organization [facility] Inform ion Partnership [facility] Care Team Providers Care Dental Patient Coordinator Name Role Phone Janice Rahman Unavailable DO Rohith Archer Primary Care Provider JETHRO Rahman Attending Provider [phone] Janice Rahman Attending Unavailable Janice Rahman Admitting Unavailable FurlongRohith Primary Care Unavailable FURLONG, DR ROHITH Martin Admitting Unavailable FURLONG, DR ROHITH Martin Attending Unavailable FURLONG, DR ROHITH Martin Consulting Unavailable FURLONG, DR ROHITH Martin Primary Care Unavailable PRESTON, DR LOLIS Haider Consulting Unavailable FURLONG, DR ROHITH Martin Primary Care Unavailable FURLONG, DR ROHITH Martin Admitting Unavailable FURLONG, DR ROHITH Martin Attending Unavailable FURLONG, DR ROHITH Martin Consulting Unavailable ZIEBER, DR GABRIEL Toro Consulting Unavailable SRINILONGROHITH Referring Unavailable NILLRohit Attending Unavailable NILLRohit Attending Unavailable Furlong DORohith Primary Care Provider SARAY GEORGE Attending Unavailable ANAIS MUÑOZ Referring Unavailable FURLONG, ROHITH Martin Primary Care Unavailable SARAY GEORGE Attending Unavailable ANAIS MUÑOZ Referring Unavailable FURLONG, ROHITH Martin Primary Care Unavailable FURLONG, ROHITH Martin Referring Unavailable FURLONG, ROHITH Martin Primary Care Unavailable FURLONG, ROHITH Martin Attending Unavailable FURLONGROHITH Referring Unavailable FURLONG, ROHITH Martin Primary Care Unavailable FURLONG, ROHITH Martin Attending Unavailable SRINILONGROHITH Referring Unavailable FURLONG, ROHITH Martin Primary Care Unavailable ANAIS MUÑOZ Attending Unavailable FURLONGROHITH Referring Unavailable FURLONG, ROHITH Martin Primary Care Unavailable FURLONG, ROHITH Martin Attending ROHITH López Referring Bhupinder ROHITH ARCHER Primary [facility] Bhupinder Ozuna MD, J I Attending [facility] DO Rohithgela [facility] Tramaine Ozuna MD, J I Attending [facility] Rohith [facility] Tramaine Ozuna MD, J I Attending [facility] Rohith [facility] Tramaine Ozuna MD, J I Attending [facility] Tramaine Ozuna MD, J I Attending [facility] Tramaine Ozuna MD, J I Attending [facility] Sulma RODRÍGUEZ, J I Admitting [facility] DO Rohith [facility] Tramaine Ozuna MD, J I Attending [facility] Rohith [facility] Tramaine nava Allergies Allergy Classification Reported Allergen(s) Allergy Type Date of Onset Reaction(s) Facility (1 source) Unable to Assess Drug allergy (disorder) 0 [facility] Repository (1 source) No Known Medication Allergies; Translations: [No Known Medication Allergies] Propensity to adverse reactions (disorder) [facility] Repository Medications Current Medications Medication Drug Class(es) Dates Sig (Normalized) Sig (Original) [id number] 200 actuat albuterol 0.09 mg/actuat metered dose inhaler (6 sources) beta2-Adrenergic Agonist Start: 04-23-2023 take 2 puff(s) by inhalation every six hours as needed albuterol (PROVENTIL HFA;VENTOLIN HFA) 90 mcg/actuation inhaler Inhale 2 puffs every 6 (six) hours as needed. 0 04/23/2023 Active atorvastatin 20 mg oral tablet (10 sources) HMG-CoA Reductase Inhibitor Start: 08-25-2022 End: 05-30-2023 take 1 tablet by mouth in the morning atorvastatin (LIPITOR) 20 mg tablet Indications: Mixed hyperlipidemia TAKE 1 TABLET (20 MG TOTAL) BY MOUTH IN THE MORNING 90 tablet 1 05/30/2023 Active Atorvastatin Asher cium Active azithromycin 250 mg oral tablet (1 source) Macrolide Antimicrobial Start: 07-09-2022 Azithromycin 250 MG 2 tablet on the first day, then 1 tablet daily for 4 days Orally Once a day for 5 day(s) Nov, Active calcium polycarbophil 625 mg oral tablet (7 sources) Start: 12-16-2022 polycarbophil (FIBER, CALCIUM POLYCARBOPHIL,) 625 mg tablet Take 1 tablet (625 mg total) by mouth. 12/16/2022 Active cyclobenzaprine hydrochloride 5 mg oral tablet (1 source) Muscle Relaxant Start: 02-14-2019 take 1 tablet by mouth every eight hours Cyclobenzaprine HCl 5 MG 1 tablet as needed Orally Three times a day Jan, Active 120 actuat formoterol fumarate 0.0048 mg/actuat / glycopyrrolate 0.009 mg/actuat metered dose inhaler (8 sources) beta2-Adrenergic Agonist take 2 puff(s) by inhalation in the morning glycopyrrolate-form oteroL (BEVESPI AEROSPHERE) 9-4.8 mcg HFA aerosol inhaler Inhale 2 puffs in the morning and 2 puffs before bedtime. 0 Active Bevespi Aerosphe re 9-4.8 MCG/ACT INHALE 2 PUFFS INTO THE LUNGS TWICE A DAY FOR 30 DAYS Inhalation for 30 Days Active meloxicam 15 mg oral tablet (5 sources) Nonsteroidal Anti-inflammatory Drug Start: 08-07-2023 take 1 tablet by mouth in the morning meloxicam (MOBIC) 15 mg tablet Take 1 tablet (15 mg total) by mouth in the morning. 30 tablet 2 08/07/2023 Active Start: 06-17-2023 End: 07-31-2023 take 1 tablet by mouth in the morning meloxicam (MOBIC) 15 mg tablet Take 1 tablet (15 mg total) by mouth in the morning for 15 days. 15 tablet 0 06/17/2023 07/02/2023 Active methylPREDNISolone 4 mg oral tablet (5 sources) Corticosteroid Start: 07-31-2023 take 1 tablet by mouth in the morning methylPREDNISolone (MEDROL, TITUS,) 4 mg tablet Indications: Acute pain of left shoulder Take 1 tablet (4 mg total) by mouth in the morning. follow package directions. 21 tablet 0 07/31/2023 Active Start: 12-08-2022 End: 06-15-2023 methylPREDNISolone (MEDROL, TITUS,) [...] at night with food Orally Jan, Active predniSONE 20 mg oral tablet (2 sources) Start: 05-31-2022 take 1 tablet by mouth every twelve hours predniSONE 20 MG 1 tablet Orally 2 times a day for 5 day(s) May, Active Start: 11-30-2021 take 1 tablet by espinoza th every twelve hours predniSONE 20 MG 1 tablet Orally 2 times a day for 5 day(s) Nov, Active psyllium 520 mg oral capsule (2 sources) psyllium (METAMU CIL) 0.52 gram capsule Take by mouth daily. 0 Active ubidecarenone 30 mg oral capsule (6 sources) take 10 capsules by mouth once in the morning coenzyme Q10 30 mg capsule Take 200 mg by mouth in the morning. 0 Active vit C,F-Br-gdnrm-lutein-zeax an (PRESERVISION AREDS-2) 250-90-40-1 mg capsule (1 source) vit C,Q-Ej-udfvi-lutein-zeaxan (PRESERVISION AREDS-2) 250-90-40-1 mg capsule Taking,but holding for surgery Active Problems Active Problems Problem Classification Problem Date Documented Da te Episodic/Chronic Cardiac dysrhythmias (2 sources) Ventricular premature complex; Translations: [Ventricular premature depolarization] Onset: 07-17-2023 07-01-2023 Chronic Chronic obstructive pulmonary disease and bronchiectasis (1 source) Chronic obstructive lung disease; Translations: [Chronic obstructive pulmonary disease, unspecified] 02-22-2024 Chronic Disorders of lipid metabolism (8 sources) Mixed hyperlipidemia; Translations: [Mixed hyperlipidemia] Onset: 06-15-2023 05-30-2023 Chronic Immunizations and screening for infectious disease (3 sources) Encounter for screening for other viral diseases; Translations: [Contact with and (suspected) exposure to other viral communicable diseases] Onset: 04-17-2021 Resolved: 04-17-2021 Episodic Other lower respiratory disease (1 source) Rib pain; Translations: [Pleurodynia] 08-07-2023 Episodic Other lower respiratory disease (1 source) Solitary nodule of lung; Translations: [Solitary pulmonary nodule] 02-24-2024 Episodic Pleurisy; pneumothorax; pulmonary collapse (1 source) Pleurisy Episodic Retinal detachments; defects; vascular occlusion; and retinopathy (7 sources) 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; Translations: [Exudative age-related macular degeneration, right eye, stage unspecified] Onset: 07-03-2020 06-15-2023 Chronic Unclassified (1 source) Pre-op Exam Onset: 02-22-2024 Unclassified (1 source) Annual Exam Onset: 09-01-2023 Past or Other Problems Problem Classification Problem Date Documented Da te Episodic/Chronic Mood disorders (8 sources) Mood disorders Onset: 12-08-2022 Resolved: 02-22-2024 12-08-2022 Nonspecific chest pain (8 sources) Chest pain, unspecified; Translations: [Chest wall pain] Onset: 05-31-2022 Episodic Other bone disease and musculoskeletal deformities (1 source) Segmental and somatic dysfunction of thoracic region; Translations: [Segmental and somatic dysfunction of thoracic region] Onset: 09-01-2023 Episodic Other lower respiratory disease (1 source) Cough Onset: 06-15-2023 Episodic Other non-traumatic joint disorders (2 sources) Pain in left shoulder; Translations: [Pain in joint, shoulder region] Onset: 07-31-2023 07-31-2023 Episodic Other non-traumatic joint disorders (1 source) Shoulder pain Onset: 07-31-2023 Episodic Other nutritional; endocrine; and metabolic disorders (8 sources) Overweight; Translations: [Overweight] Onset: 08-25-2022 Resolved: 02-22-2024 08-25-2022 Episodic Other screening for suspected conditions (not mental disorders or infectious disease) (1 source) Encounter for screening mammogram for malignant neoplasm of breast; Translations: [Encounter for screening mammogram for malignant neoplasm of breast] Onset: 09-01-2023 Episodic Screening and history of mental health and substance abuse codes (13 sources) Personal history of nicotine dependence; Translations: [Ex-cigarette smoker] Onset: 08-25-2022 Episodic Spondylosis; intervertebral disc disorders; other back problems (4 sources) Cervicalgia; Translations: [CERVICALGIA] Onset: 10-12-2021 Episodic Viral infection (1 source) COVID-19 Onset: 11-30-2021 Resolved: 11-30-2021 Results Test Name Value Interpretation Reference Range Facility .eGFRon 02-28-2024 GFR/1.73 sq M.predicted MDRD (S/P/Bld) [Vol rate/Area] mL/min/{1.73_m2} Normal >=60 [facility] Comment on above: Result Comment: [facility] have implemented the eGFR calculation approach that does not have a coefficient for race and that conforms to the NKF-ASN Task Force Recommendations. Stages of Chronic Kidney Disease GFR Stage 3a Mild to moderate loss of kidney function 59 to 45 Stage 3b Moderate to severe loss of kidney function 44 to 33 Stage 4 Severe loss of kidney function 29 to 15 Stage 5 Kidney failure Less than 15 GFR calculated using the CKD-Epi Creatinine Equation (2020): eGFR = 142 X min(SCr/?, 1)? X max(SCr /?, 1)-1.200 X 0.9938Age X 1.012 [if female] Abbreviations/Units: eGFR (estimated glomerular filtration rate) = mL/min/1.73 m2 SCr (standardized serum creatinine) = mg/dL ? = 0.7 (females) or 0.9 (males) ? = -0.241 (females) or -0.302 (males) min = indicates the minimum of SCr/? or 1 max = indicates the maximum of SCr/? or 1 Age = years Performed By: #### C OMP #### [address] [address] CBC w/ Diffon 02-28-2024 Erythrocyte distribution width (RBC) [Ratio] 13.3 % Normal 11.6-14.8 [facility] Comment on above: Performed By: #### C OMP #### [address] [address] Hematocrit (Bld) [Volume fraction] 36.8 % Normal 36.0-46.0 [facility] Comment on above: Performed By: #### C OMP #### [place] [address] Hemoglobin (Bld) [Mass/Vol] 12.2 g/dL Normal 12.0-16.0 [facility] Comment on above: Performed By: #### C OMP #### [place] [address] MCH (RBC) [Entitic mass] 30.8 pg Normal 27.0-35.0 [facility] Comment on above: Performed By: #### C OMP #### [place] [address] MCHC 33.0 % Normal 31.0-37.0 [facility] Comment on above: Performed By: #### C OMP #### [place] [address] MCV (RBC) [Entitic vol] 93.3 fL Normal 80.0-100.0 [facility] Comment on above: Performed By: #### C OMP #### [place] [address] Platelet 296 x10*3/mcL Normal 150-450 [facility] Comment on above: Performed By: #### C OMP #### [place] [address] Platelet mean volume (Bld) [Entitic vol] 7.8 fL Normal 6.7-10.6 [facility] Comment on above: Performed By: #### C OMP #### [place] [address] RBC 3.95 x10*6/mcL Normal 3.80-5.20 [facility] Comment on above: Performed By: #### C OMP #### [place] [address] WBC 8.4 x10*3/mcL Normal 4.5-11.0 [facility] Comment on above: Performed By: #### C OMP #### [place] [address] CMPon 02-28-2024 Albumin [Mass/Vol] 3.4 g/dL Normal 3.2-4.9 [facility] Comment on above: Performed By: #### C BC #### [address] [address] Albumin/Globulin [Mass ratio] 1.3 {ratio} Normal 1.1-2.2 [facility] Comment on above: Performed By: #### C BC #### [address] [address] Alk Phos 54 IU/L Normal 32-91 [facility] Comment on above: Performed By: #### C BC #### [address] [address] ALT [Catalytic activity/Vol] 24 U/L Normal 14-54 [facility] Comment on above: Performed By: #### C BC #### [address] [address] Anion gap [Moles/Vol] 10 mmol/L Normal 4-12 [facility] Comment on above: Performed By: #### C BC #### [address] [address] AST [Catalytic activity/Vol] 25 U/L Normal 15-41 [facility] Comment on above: Performed By: #### C BC #### [address] [address] Bili Total 0.5 mg/dL Normal 0.3-1.2 [facility] Comment on above: Performed By: #### C BC #### [address] [address] Calcium [Mass/Vol] 8.8 mg/dL Normal 8.5-10.3 [facility] Comment on above: Performed By: #### C BC #### [address] [address] Chloride [Moles/Vol] 100 mmol/L Normal 98-110 [facility] Comment on above: Performed By: #### C BC #### [address] [place] [address] CO2 [Moles/Vol] 29 mmol/L Normal 22-32 [facility] Comment on above: Performed By: #### C BC #### [address] [address] Creatinine [Mass/Vol] 0.85 mg/dL Normal 0.44-1.03 [facility] Comment on above: Performed By: #### C BC #### [address] [address] Glucose [Mass/Vol] 108 mg/dL High 70-99 [facility] Comment on above: Performed By: #### C BC #### [address] [address] Potassium [Moles/Vol] 4.3 mmol/L Normal 3.4-4.8 [facility] Comment on above: Performed By: #### C BC #### [address] [address] Protein [Mass/Vol] 6.0 g/dL Low 6.5-8.1 [facility] Comment on above: Performed By: #### C BC #### [address] [address] Sodium [Moles/Vol] 139 mmol/L Normal 133-142 [facility] Comment on above: Performed By: #### C BC #### [address] [address] Urea nitrogen [Mass/Vol] 11 mg/dL Normal 8-26 [facility] Comment on above: Performed By: #### C BC #### [address] [address] Urea nitrogen/Creatinine [Mass ratio] 12.9 mg/mg Normal 10.0-20.0 [facility] Comment on above: Performed By: #### C BC #### [address] [address] Diff Autoon 02-28-2024 Baso Absolute 0.1 x10*3/mcL Normal 0.0-0.2 [facility] Comment on above: Performed By: #### C BC #### [address] [address] Basophils/100 WBC (Bld) 0.8 % Normal 0.0-1.5 [facility] Comment on above: Performed By: #### C BC #### [address] [address] Eos Absolute 0.1 x10*3/mcL Normal 0.0-0.4 [facility] Comment on above: Performed By: #### C BC #### [address] [address] Eosinophils/100 WBC (Bld) 0.8 % Normal 0.0-5.4 [facility] Comment on above: Performed By: #### C BC #### [address] [address] Lymph Absolute 2.2 x10*3/mcL Normal 1.0-4.8 [facility] Comment on above: Performed By: #### C BC #### [address] [address] Lymphocytes/100 WBC (Bld) 26.1 % Low 27.2-40.8 [facility] Comment on above: Performed By: #### C BC #### [address] [address] [place] Absolute 0.8 x10*3/mcL Normal 0.1-1.1 [facility] Comment on above: Performed By: #### C BC #### [address] [address] Monocytes/100 WBC (Bld) 9.5 % Normal 3.7-11.9 [facility] Comment on above: Performed By: #### C BC #### [address] [address] Neutro Absolute 5.3 x10*3/mcL Normal 1.8-7.7 [facility] Comment on above: Performed By: #### C BC #### [address] [address] Neutro Auto 62.8 % Normal 47.2-70.8 [place] Comment on above: Performed By: #### C BC #### [address] [address] Inpatient Clinical Summaryon 02-28-2024 Inpatient Clinical Summary [address] [address] Clinical Summary Person Information Name: Petrona Gordon Age: 63 Years : 1960 Sex: Female PCP: Rohith Archer DO Marital Status: Single Phone: PCP: Race: White Ethnicity: Not or Language: Czech Visit Id: Visit Reason: Speciality: Acuity: Enc Type: Inpatient Med Service: Surgery Arrival: 02/26/2024 08:53:02 Discharge: Dispo Type: Address: [address] [place] [address] [address] [facility] [id number] Diagnosis: Post-op pain Discharged To: Home Treatments: Devices/Equipment: Professional Skilled Services: Special Services and Community Resources: Mode of Discharge Transportation: Discharge Orders Discharge Special Instructions You may drive when you are no longer taking pain medication Discharge Special Instructions You may go up and down steps. You may do any activity that can be done comfortably. No strenuous activity. No lifting over 20 pounds for 6 weeks. Discharge Special Instructions You may shower 2 days after surgery, No tub baths for 2 weeks Discharge Special Instructions Apply ice to operative area 20 minutes per hour while awake. Apply cloth between ice and skin for protection. Discharge Wound Care Skin glue dissolves on its own. Follow up 02/28/24 13:46:00 EDT, 1 to 2 days, As scheduled by the office. Allergies No Known Allergies Functional Status: Sensory Deficits: None History of Falls: Mobility Assistance Prior to Admission: ADLs: Minimal assistance Gait: Steady Ambulation Assist: Assistive Device: None Special Orthopedic Devices: Current Level of Assistance for Self-Care/Mobility: Cognitive Status: Orientation: Orientation Assessment Oriented x 4 Level of Consciousness: Alert Characteristics of Speech: Clear Aspiration Risk: None Affect/Behavior: Appropriate Laboratory or Other Results This Visit (last charted value for your 02/26/2024 visit) Hematology 02/28/2024 4:54 AM WBC: 8.4 x10 RBC: 3.95 x10 Neutro Auto: 62.8 % -- Normal range between ( 47.2 and 70.8 ) Lymph Auto: 26.1 % -- Normal range between ( 27.2 and 40.8 ) [place] Auto: 9.5 % -- Normal range between ( 3.7 and 11.9 ) Eos Auto: 0.8 % -- Normal range between ( 0.0 and 5.4 ) Basophil Auto: 0.8 % -- Normal range between ( 0.0 and 1.5 ) Baso Absolute: 0.1 x10 MCV: 93.3 fL -- Normal range between ( 80.0 and 100.0 ) MCHC: 33.0 % -- Normal range between ( 31.0 and 37.0 ) Lymph Absolute: 2.2 x10 Hct: 36.8 % -- Normal range between ( 36.0 and 46.0 ) [place] Absolute: 0.8 x10 MCH: 30.8 pg -- Normal range between ( 27.0 and 35.0 ) Neutro Absolute: 5.3 x10 Hgb: 12.2 g/dL -- Normal range between ( 12.0 and 16.0 ) Mean Platelet Volume: 7.8 fL -- Normal range between ( 6.7 and 10.6 ) Platelet: 296 x10 Eos Absolute: 0.1 x10 RDW: 13.3 % -- Normal range between ( 11.6 and 14.8 ) Chemistry 02/28/2024 4:54 AM Creatinine Lvl: 0.85 mg/dL -- Normal range between ( 0.44 and 1.03 ) BUN: 11 mg/dL -- Normal range between ( 8 and 26 ) Glucose Lvl: 108 mg/dL -- Normal range between ( 70 and 99 ) Potassium Lvl: 4.3 mmol/L -- Normal range between ( 3.4 and 4.8 ) AST: 25 IU/L -- Normal range between ( 15 and 41 ) ALT: 24 IU/L -- Normal range between ( 14 and 54 ) Sodium Lvl: 139 mmol/L -- Normal range between ( 133 and 142 ) Calcium Lvl: 8.8 mg/dL -- Normal range between ( 8.5 and 10.3 ) Phosphorus: 2.7 mg/dL -- Normal range between ( 2.5 and 4.6 ) Albumin Lvl: 3.4 g/dL -- Normal range between ( 3.2 and 4.9 ) Total Protein: 6.0 g/dL -- Normal range between ( 6.5 and 8.1 ) Magnesium Lvl: 1.8 mg/dL -- Normal range between ( 1.7 and 2.4 ) Bili Total: 0.5 mg/dL -- Normal range between ( 0.3 and 1.2 ) Alk Phos: 54 IU/L -- Normal range between ( 32 and 91 ) Chloride: 100 mmol/L -- Normal range between ( 98 and 110 ) CO2: 29 mmol/L -- Normal range between ( 22 and 32 ) Anion Gap: 10 -- Normal range between ( 4 and 12 ) Estimated GFR: >60 mL/min/1.73m? BUN Crea Ratio: 12.9 -- Normal range between ( 10.0 and 20.0 ) AG Ratio: 1.3 -- Normal range between ( 1.1 and 2.2 ) Blood Bank 02/16/2024 1:57 PM ABO/Rh: B POS Antibody Screen: Negative ABSC Measurements: Height: Weight: Blood Pressure: 126 mmHg / BMI: Respiratory: Respirations: Unlabored Respiratory Symptoms: None Cardiovascular: Heart Sounds: Heart Rhythm: Regular Gastrointestinal: GI Symptoms: Bowel Sounds: Present Vital Signs: Temp Axillary: 36.9 degC Temp Temporal Artery: 36.5 degC Temp Oral: 36.6 degC Temp Rectal: Apical Heart Rate: Peripheral Pulse Rate: 85 bpm Heart Rate: 89 bpm Respiratory Rate: 16 br/min Diet Diet: Feeding Tolerance: Appetite: Good Patric Assessment: 20 Procedures Forceps extraction of tooth Immunizations No Immunizations (more content not included)... Normal [facility] Magnesiumon 02-28-2024 Magnesium [Mass/Vol] 1.8 mg/dL Normal 1.7-2.4 [facility] Comment on above: Performed By: #### M G #### [facility] [address] [place] [address] Phosphoruson 02-28-2024 Phosphate [Mass/Vol] 2.7 mg/dL Normal 2.5-4.6 [facility] Comment on above: Performed By: #### C OMP #### [facility] [address] [place] [address] Surgical Progress Noteon Surgical Progress Note Patient tolerating diet did not like her arm at this morning no nausea no vomiting No gas or BM yet Pain is well-controlled Ambulating in the halls Status post sigmoidectomy and rectopexy Awaiting bowel function Discharge this afternoon versus tomorrow Electronically signed by Iávn Sapp MD 02/28/24 10:33 EDT Normal [facility] .eGFRon 02-27-2024 GFR/1.73 sq M.predicted MDRD (S/P/Bld) [Vol rate/Area] mL/min/{1.73_m2} Normal >=60 [facility] Comment on above: Result Comment: [facility] have implemented the eGFR calculation approach that does not have a coefficient for race and that conforms to the NKF-ASN Task Force Recommendations. Stages of Chronic Kidney Disease GFR Stage 3a Mild to moderate loss of kidney function 59 to 45 Stage 3b Moderate to severe loss of kidney function 44 to 33 Stage 4 Severe loss of kidney function 29 to 15 Stage 5 Kidney failure Less than 15 GFR calculated using the CKD-Epi Creatinine Equation (2020): eGFR = 142 X min(SCr/?, 1)? X max(SCr /?, 1)-1.200 X 0.9938Age X 1.012 [if female] Abbreviations/Units: eGFR (estimated glomerular filtration rate) = mL/min/1.73 m2 SCr (standardized serum creatinine) = mg/dL ? = 0.7 (females) or 0.9 (males) ? = -0.241 (females) or -0.302 (males) min = indicates the minimum of SCr/? or 1 max = indicates the maximum of SCr/? or 1 Age = years Performed By: #### E GFR #### [address] [address] CBC w/ Diffon 02-27-2024 Erythrocyte distribution width (RBC) [Ratio] 12.8 % Normal 11.6-14.8 [facility] Comment on above: Performed By: #### C BC #### [address] [address] Hematocrit (Bld) [Volume fraction] 36.9 % Normal 36.0-46.0 [facility] Comment on above: Performed By: #### C BC #### [address] [address] Hemoglobin (Bld) [Mass/Vol] 12.6 g/dL Normal 12.0-16.0 [facility] Comment on above: Performed By: #### C BC #### [address] [address] MCH (RBC) [Entitic mass] 31.4 pg Normal 27.0-35.0 [facility] Comment on above: Performed By: #### C BC #### [address] [address] MCHC 34.1 % Normal 31.0-37.0 [facility] Comment on above: Performed By: #### C BC #### [address] [address] MCV (RBC) [Entitic vol] 92.0 fL Normal 80.0-100.0 [facility] Comment on above: Performed By: #### C BC #### [address] [address] Platelet 329 x10*3/mcL Normal 150-450 [facility] Comment on above: Performed By: #### C BC #### [address] [address] Platelet mean volume (Bld) [Entitic vol] 7.9 fL Normal 6.7-10.6 [facility] Comment on above: Performed By: #### C BC #### [facility] [address] [place] [address], [place] [address] RBC 4.01 x10*6/mcL Normal 3.80-5.20 [facility] Comment on above: Performed By: #### C BC #### [facility] [address] [place] [address], [place] [address] WBC 11.7 x10*3/mcL High 4.5-11.0 [facility] Comment on above: Performed By: #### C BC #### [address] [address] CMPon 02-27-2024 Albumin [Mass/Vol] 3.3 g/dL Normal 3.2-4.9 [facility] Comment on above: Performed By: #### C BC #### [address] [address] Albumin/Globulin [Mass ratio] 1.2 {ratio} Normal 1.1-2.2 [facility] Comment on above: Performed By: #### C BC #### [facility] [address] [place] [address] [place] [address] Alk Phos 62 IU/L Normal 32-91 [facility] Comment on above: Performed By: #### C BC #### [address] [place] [address] ALT [Catalytic activity/Vol] 15 U/L Normal 14-54 [facility] Comment on above: Performed By: #### C BC #### [address] [place] [address] Anion gap [Moles/Vol] 8 mmol/L Normal 4-12 [facility] Comment on above: Performed By: #### C BC #### [address] [address] AST [Catalytic activity/Vol] 19 U/L Normal 15-41 [facility] Comment on above: Performed By: #### C BC #### [address] [address] Bili Total 0.9 mg/dL Normal 0.3-1.2 [facility] Comment on above: Performed By: #### C BC #### [facility] [address] [place] [address] Calcium [Mass/Vol] 8.5 mg/dL Normal 8.5-10.3 [facility] Comment on above: Performed By: #### C BC #### [facility] [address] [place] [address] Chloride [Moles/Vol] 101 mmol/L Normal 98-110 [facility] Comment on above: Performed By: #### C BC #### [facility] [address] [place] [address] CO2 [Moles/Vol] 23 mmol/L Normal 22-32 [facility] Comment on above: Performed By: #### C BC #### [facility] [address] [place] [address] Creatinine [Mass/Vol] 0.79 mg/dL Normal 0.44-1.03 [facility] Comment on above: Performed By: #### C BC #### [facility] [address] [place] [address] Glucose [Mass/Vol] 119 mg/dL High 70-99 [facility] Comment on above: Performed By: #### C BC #### [facility] [address] [place] [address] Potassium [Moles/Vol] 4.2 mmol/L Normal 3.4-4.8 [facility] Comment on above: Performed By: #### C BC #### [address] [address] Protein [Mass/Vol] 6.0 g/dL Low 6.5-8.1 [facility] Comment on above: Performed By: #### C BC #### [address] [address] Sodium [Moles/Vol] 132 mmol/L Low 133-142 [facility] Comment on above: Performed By: #### C BC #### [address] [address] Urea nitrogen [Mass/Vol] 16 mg/dL Normal 8-26 [facility] Comment on above: Performed By: #### C BC #### [address] [address] Urea nitrogen/Creatinine [Mass ratio] 20.3 mg/mg High 10.0-20.0 [facility] Comment on above: Performed By: #### C BC #### [address] [address] Diff Autoon 02-27-2024 Baso Absolute 0.0 x10*3/mcL Normal 0.0-0.2 [facility] Comment on above: Performed By: #### C OMP #### [address] [address] Basophils/100 WBC (Bld) 0.3 % Normal 0.0-1.5 [facility] Comment on above: Performed By: #### C OMP #### [address] [address] Eos Absolute 0.0 x10*3/mcL Normal 0.0-0.4 [facility] Comment on above: Performed By: #### C OMP #### [address] [address] Eosinophils/100 WBC (Bld) 0.0 % Normal 0.0-5.4 [facility] Comment on above: Performed By: #### C OMP #### [address] [address] Lymph Absolute 0.9 x10*3/mcL Low 1.0-4.8 [facility] Comment on above: Performed By: #### C OMP #### [address] [address] Lymphocytes/100 WBC (Bld) 7.4 % Low 27.2-40.8 [facility] Comment on above: Performed By: #### C OMP #### [place] [id number] [place] Absolute 0.9 x10*3/mcL Normal 0.1-1.1 [facility] Comment on above: Performed By: #### C OMP #### [place] [address] Monocytes/100 WBC (Bld) 7.8 % Normal 3.7-11.9 [facility] Comment on above: Performed By: #### C OMP #### [place] [address] Neutro Absolute 9.9 x10*3/mcL High 1.8-7.7 [facility] Comment on above: Performed By: #### C OMP #### [place] [address] Neutro Auto 84.5 % High 47.2-70.8 [place] Comment on above: Performed By: #### C OMP #### [place] [address] Magnesiumon 02-27-2024 Magnesium [Mass/Vol] 1.6 mg/dL Low 1.7-2.4 [facility] Comment on above: Performed By: #### M G #### [address] [address] Phosphoruson 02-27-2024 Phosphate [Mass/Vol] 3.8 mg/dL Normal 2.5-4.6 [facility] Comment on above: Performed By: #### C OMP #### [place] [address] Surgical Progress Noteon Surgical Progress Note Patient feels great tells me she feels like she deemed to have surgery tolerating diet Hodge we will remove this morning No reliable bowel function yet no flatus no bowel movement Abdomen soft and benign incisions intact Steri-Strips Status post sigmoidectomy rectopexy for prolapse Doing very well Stop fluids Advance diet to soft Take Hodge out I preferred to her to stay at least until tomorrow to reliable bowel function she is eager for discharge home discussed with her that would like to have reliable bowel function before discharge home Electronically signed by Senait RODRÍGUEZ, Iván Kimble 02/27/24 10:53 EDT Normal [facility] Operative Reporton 4 Operative Report Indication for Surgery Rectal prolapse Preoperative Diagnosis Same Postoperative Diagnosis Sigmoid colectomy with rectopexy Operation Rectopexy Robotic X/Xi Resection Sigmoid Colon Robotic X/Xi Surgeon(s) Sulma RODRÍGUEZ, Eveline Valenzuela (Surgeon - Primary) Cable Weaver Patito SOTO, Nae Felipe (Tie Bucker) Anesthesia General Juan Miguel Negron DO (Statement Request Clerk) Estimated Blood Loss 15 mL Urine Output Adequate Findings Approximately 10 cm rectal prolapse seen after the patient was placed under anesthesia Specimen(s) Pathology Tissue Request (sigmoid colon,AP Specimen) Complications None Technique Technique: Pt was seen in pre op holding to ensure there is no further questions. The informed consent had been previously obtained. The surgical site was marked. The procedure being performed as well as the postoperative care plan were reviewed with the patient again today. A Fleet enema was given in preop holding to ensure a clean and empty rectal vault. A single dose of prophylactic intravenous antibiotics was administered on the way to the operating room. Pt was taken to the OR and placed in the supine position . The patient was attached to all the appropriate monitors. A general anesthetic was administered and endotracheal intubation was done by the anesthesia team. An orogastric tube and Hodge catheter were placed. The patient was then placed in the lithotomy position. All pressure points were adequately padded. The operative site was then prepped and draped in the usual sterile fashion. Time out was called to correctly identify the patient and confirm the procedure to be performed. The procedure began by making a supraumbilical incision, a Veress needle was inserted through that incision into the abdomen, pneumoperitoneum was established up to 15 mmHg pressure. A 5 mm port was then placed and the laparoscope was inserted through that. 3 additional ports ( two 8 mm robotic port, and a 12 mm robotic port) were placed under direct visualization along a straight line starting at the area just above the right anterior superior iliac spine extending all the way to the mid clavicular region on the left. The 5 mm umbilical port was then changed to an 8 mm port, and the 5 mm port that was removed was placed in the right upper quadrant as an news production assistant port. The patient was then placed in about 20? Trendelenburg with some tilt to the right side. The robot was docked at this point. any small bowel adhesions were taken down with sharp dissection allowing the small bowel to drift back into the upper abdomen. the tip up forceps was used to lift the sigmoid colon off the retroperitoneum and dissection at the base of the mesenteries was then performed on the right side starting at the area of the sacral promontory and had an downward toward the pelvis on the right. The pre-sacral space was entered and mobilization was conducted posteriorly to allow for the division of the sigmoid colon at the rectosigmoid junction. At this point the attention was then turned to the lateral aspect of the sigmoid colon, the colon was freed along the line of Toldt all the way to the distal descending colon, the bowel in that area was soft healthy free of diverticula. The lateral dissection was then carried out to identify the ureter on the left side, and the peritoneum was scored all the way down to the rectal uterine pouch, the posterior dissection was carried all the way down to the pelvic floor to ensure complete mobilization of the rectum to allow for the straightening of the rectum. The rectosigmoid junction at this point was partly skeletonized to allow for the robotic stapler insertion and the division of the bowel. ICG with firefly technology was used to ensure adequate vascularity to both proximal and distal division lines.. The mesenteries were taken down all the way to the bowel wall at the proximal division line to allow for clear identification of the point of proximal division once the bowel is exteriorized. Ensuring that we had enough length to reach without any tension. The mesenteries of the sigmoid colon were then taken down with the vessel sealer. the sigmoid colon was completely mobile in preparation for the exteriorization of the bowel. the robot was undocked at this point. A 4-5 cm Pfannenstiel type incision was made, the abdomen was entered safely, a wound protector was then placed, the sigmoid colon was exteriorized, the previously marked area for the division of the bowel was clearly identified. An automatic pursestringer was then placed over that area and the bowel was divided, the anvil of the EEA 28 stapler was then inserted into the intestine, and the pursestring was then tied around the anvil. The bowel was then placed back into the abdomen the fascia was closed with a #1 Vicryl suture, the EEA stapler was then inserted by the news production assistant into the proximal anterior aspect of the rectal stump just distal to staple line to allow for performing the anastomosis anteriorly wh (more content not included)... Normal [facility] .eGFRon 02-16-2024 GFR/1.73 sq M.predicted MDRD (S/P/Bld) [Vol rate/Area] mL/min/{1.73_m2} Normal >=60 [facility] Comment on above: Order Comment: Order added by Discern rule Result Comment: [facility] have implemented the eGFR calculation approach that does not have a coefficient for race and that conforms to the NKF-ASN Task Force Recommendations. Stages of Chronic Kidney Disease GFR Stage 3a Mild to moderate loss of kidney function 59 to 45 Stage 3b Moderate to severe loss of kidney function 44 to 33 Stage 4 Severe loss of kidney function 29 to 15 Stage 5 Kidney failure Less than 15 GFR calculated using the CKD-Epi Creatinine Equation (2020): eGFR = 142 X min(SCr/?, 1)? X max(SCr /?, 1)-1.200 X 0.9938Age X 1.012 [if female] Abbreviations/Units: eGFR (estimated glomerular filtration rate) = mL/min/1.73 m2 SCr (standardized serum creatinine) = mg/dL ? = 0.7 (females) or 0.9 (males) ? = -0.241 (females) or -0.302 (males) min = indicates the minimum of SCr/? or 1 max = indicates the maximum of SCr/? or 1 Age = years Performed By: #### C BC #### [facility] [address] [place] [address] GFR/1.73 sq M.predicted MDRD (S/P/Bld) [Vol rate/Area] mL/min/{1.73_m2} Normal >=60 [facility] Comment on above: Order Comment: Order added by Discern Rule. Result Comment: [facility] have implemented the eGFR calculation approach that does not have a coefficient for race and that conforms to the NKF-ASN Task Force Recommendations. Stages of Chronic Kidney Disease GFR Stage 3a Mild to moderate loss of kidney function 59 to 45 Stage 3b Moderate to severe loss of kidney function 44 to 33 Stage 4 Severe loss of kidney function 29 to 15 Stage 5 Kidney failure Less than 15 GFR calculated using the CKD-Epi Creatinine Equation (2020): eGFR = 142 X min(SCr/?, 1)? X max(SCr /?, 1)-1.200 X 0.9938Age X 1.012 [if female] Abbreviations/Units: eGFR (estimated glomerular filtration rate) = mL/min/1.73 m2 SCr (standardized serum creatinine) = mg/dL ? = 0.7 (females) or 0.9 (males) ? = -0.241 (females) or -0.302 (males) min = indicates the minimum of SCr/? or 1 max = indicates the maximum of SCr/? or 1 Age = years Performed By: #### C BC #### [facility] [address] [place] [address] ABO/Rhon 02-16-2024 ABO/Rh ABO/Rh: B POS Normal [facility] Comment on above: Performed By: #### A CHRISTINE #### [facility] (UNKNOWN) [address] [place] [address] ABSC Autoon 02-16-2024 ABSC Auto Negative Normal [facility] Comment on above: Performed By: #### A SA #### [facility] (UNKNOWN) [address] [place] [address] CBC w/ Diffon 02-16-2024 Erythrocyte distribution width (RBC) [Ratio] 13.0 % Normal 11.6-14.8 [facility] Comment on above: Performed By: #### C BC #### [facility] [address] [place] [address] Hematocrit (Bld) [Volume fraction] 41.7 % Normal 36.0-46.0 [facility] Comment on above: Performed By: #### C BC #### [facility] [address] [place] [address] Hemoglobin (Bld) [Mass/Vol] 14.4 g/dL Normal 12.0-16.0 [facility] Comment on above: Performed By: #### C BC #### [address] [address] MCH (RBC) [Entitic mass] 31.8 pg Normal 27.0-35.0 [facility] Comment on above: Performed By: #### C BC #### [address] [address] MCHC 34.4 % Normal 31.0-37.0 [facility] Comment on above: Performed By: #### C BC #### [address] [address] MCV (RBC) [Entitic vol] 92.5 fL Normal 80.0-100.0 [facility] Comment on above: Performed By: #### C BC #### [address] [address] Platelet 378 x10*3/mcL Normal 150-450 [facility] Comment on above: Performed By: #### C BC #### [address] [address] Platelet mean volume (Bld) [Entitic vol] 6.9 fL Low 7.5-11.5 [facility] Comment on above: Performed By: #### C BC #### [address] [address] RBC 4.51 x10*6/mcL Normal 3.80-5.20 [facility] Comment on above: Performed By: #### C BC #### [address] [address] WBC 7.4 x10*3/mcL Normal 4.5-11.0 [facility] Comment on above: Performed By: #### C BC #### [address] [address] CMPon 02-16-2024 Albumin [Mass/Vol] 4.6 g/dL Normal 3.7-5.3 [facility] Comment on above: Performed By: #### C OMP #### [place] [address] Albumin/Globulin [Mass ratio] 1.7 {ratio} Normal 1.1-2.2 [facility] Comment on above: Performed By: #### C OMP #### [facility] [address] [place] [address] Alk Phos 80 IU/L Normal 34-104 [facility] Comment on above: Performed By: #### C OMP #### [place] [address] ALT [Catalytic activity/Vol] 12 U/L Normal 7-52 [facility] Comment on above: Performed By: #### C OMP #### [place] [address] Anion gap [Moles/Vol] 4 mmol/L Normal 4-12 [facility] Comment on above: Performed By: #### C OMP #### [place] [address] AST [Catalytic activity/Vol] 17 U/L Normal 13-39 [facility] Comment on above: Performed By: #### C OMP #### [place] [address] Bili Total 0.5 mg/dL Normal 0.3-1.0 [facility] Comment on above: Performed By: #### C OMP #### [place] [address] Calcium [Mass/Vol] 9.9 mg/dL Normal 8.6-10.3 [facility] Comment on above: Performed By: #### C OMP #### [place] [address] Chloride 103 IU/L Normal 98-107 [facility] Comment on above: Performed By: #### C OMP #### [place] [address] CO2 [Moles/Vol] 31 mmol/L Normal 21-31 [facility] Comment on above: Performed By: #### C OMP #### [address] [address] Creatinine [Mass/Vol] 0.59 mg/dL Low 0.60-1.20 [facility] Comment on above: Performed By: #### C OMP #### [address] [address] Glucose [Mass/Vol] 90 mg/dL Normal 70-99 [facility] Comment on above: Performed By: #### C OMP #### [place] [id number] Potassium [Moles/Vol] 4.3 mmol/L Normal 3.4-4.8 [facility] Comment on above: Performed By: #### C OMP #### [address] [address] Protein [Mass/Vol] 7.3 g/dL Normal 6.0-8.3 [facility] Comment on above: Performed By: #### C OMP #### [place] [address] Sodium [Moles/Vol] 138 mmol/L Normal 136-145 [facility] Comment on above: Performed By: #### C OMP #### [address] [address] Urea nitrogen [Mass/Vol] 10 mg/dL Normal 7-25 [facility] Comment on above: Performed By: #### C OMP #### [address] [address] Urea nitrogen/Creatinine [Mass ratio] 16.9 mg/mg Normal 10.0-20.0 [facility] Comment on above: Performed By: #### C OMP #### [address] [address] [address] Abdomen Pelvis w/ IV Cont [facility] 02-16-2024 CT Abdomen Pelvis w/ IV Contrast EXAMINATION: CT Abdomen Pelvis w/ IV Contrast, 02/16/2024 3:12 PM EDT HISTORY: Other (please specify), Rectal Prolapse COMPARISON: None. TECHNIQUE: CT scan of the abdomen and pelvis was performed with IV contrast. CT dose reduction technique was used, including Automated Exposure Control. FINDINGS: Lingular nodule is more prominent than on the prior low-dose screening CT from 10/06/2023, measures 9 mm, and should be further investigated using CT chest. There is no pleural or pericardial effusion. There is no hepatic mass. Gallbladder is nonvisualized and may have been removed. Common bile duct is dilated to 1.3 cm. This is likely post cholecystectomy and senescent. Spleen, adrenal glands, and pancreas are normal. Appendix is visualized and is normal. There is no bowel obstruction. Rectum does not extend through the anus. There is no adenopathy. There is no vascular abnormality. Uterus and adnexa are unremarkable. IMPRESSION: Lingular nodule has increased in size compared to priors CT lung screening exam and should be investigated using chest CT. Rectum does not extend through the anus. Radiation Dose Estimate: CTDI(mGy):0.903513 / / / kVp:100.996676 / mAs:0.354122 / / / DLP(mGy-cm):0.602998 Body Part: Abdomen CTDI(mGy):4.244077 / / / kVp:80.325268 / mAs:128.154913 / / / DLP(mGy-cm):192.0000 00Body Part: Abdomen Final Dictated by: Irma Estevez MD Dictated DT/TM: 02.16.2024 3:59 pm Signed by: Irma Estevez MD Signed (Electronic Signature): 02.16.2024 4:12 pm (If Report Is Signed, Electronically Signed in Other Vendor System) Normal [facility] Comment on above: Order Comment: tatiana erin order signed 02/04/24 - joe baxter in [employer] Diff Autoon 02-16-2024 Baso Absolute 0.1 x10*3/mcL Normal 0.0-0.2 [facility] Comment on above: Performed By: #### C OMP #### [address] [address] Basophils/100 WBC (Bld) 1.1 % Normal 0.0-1.5 [facility] Comment on above: Performed By: #### C OMP #### [address] [address] Eos Absolute 0.1 x10*3/mcL Normal 0.0-0.4 [facility] Comment on above: Performed By: #### C OMP #### [place] [address] Eosinophils/100 WBC (Bld) 1.4 % Normal 0.0-5.4 [facility] Comment on above: Performed By: #### C OMP #### [place] [address] Lymph Absolute 2.0 x10*3/mcL Normal 1.0-4.8 [facility] Comment on above: Performed By: #### C OMP #### [place] [address] Lymphocytes/100 WBC (Bld) 26.9 % Low 27.2-40.8 [facility] Comment on above: Performed By: #### C OMP #### [place] [address] [place] Absolute 0.5 x10*3/mcL Normal 0.1-1.1 [facility] Comment on above: Performed By: #### C OMP #### [place] [address] Monocytes/100 WBC (Bld) 6.9 % Normal 3.7-11.9 [facility] Comment on above: Performed By: #### C OMP #### [place] [address] Neutro Absolute 4.7 x10*3/mcL Normal 1.8-7.7 [facility] Comment on above: Performed By: #### C OMP #### [place] [address] Neutro Auto 63.7 % Normal 47.2-70.8 [place] Comment on above: Performed By: #### C OMP #### [place] [address] POC Creatinine Von 4 POC Crea iStat Venous 0.6 mg/dL Normal 0.6-1.3 [facility] Comment on above: Performed By: #### C #### [facility] [address] [place] [address] Surgery Office/Clinic Noteon 02-04-2024 Surgery Office/Clinic Note Chief Complaint Rectal protrusion History of Present Illness 63 year old female, referred by Dr. Amanda ([facility]), patient of Colin Sarah Patient is here with c/o protrusion from the rectum that has been an ongoing issue for many years, but worsening lately. States it is becoming more difficult to reduce. She denies constipation or straining and bleeding. Last colonoscopy 01-14-2023 in [place], diverticulosis and tubular adenoma x2. The patient also reports some lower back pain sacral area pain. She is having fecal leakage when she is standing at work. She is able to reduce the prolapse but it skin motor more difficult. Review of Systems General: No abnormalities Endocrine: No Abnormalities Hematologic: No Abnormalities Cardiovascular: No Abnormalities Pulmonary: No abnormalities Breast: No abnormalities Gastrointestinal: No abnormalities Neurologic: No abnormalities Psychiatric: No abnormalities Physical Exam Vitals & Measurements HR: 73 (Peripheral) BP: 119/86 HT: 160 cm WT: 65.77 kg (Estimated) WT: 65.77 kg (Dosing) BMI: 25.69 General: well nourished, no acute distress. Eye: normal conjunctiva HEENT: Normocephalic, no scleral icterus Neck: supple, non-tender, no JVD, no lymphadenopathy Lungs: Clear to auscultation, non-labored respiration Heart: normal rate, regular rhythm, no murmur, gallop or edema. Abdomen: soft, non-tender, non-distended, normal bowel sounds, no masses. Examination of the anal area. Shows good sphincter tone. There is obvious prolapse when the patient bears down. The rectum sticks out about 3 to 4 cm with the patient lying down on the exam table. Musculoskeletal: normal range of motion and strength, no tenderness or swelling. Skin: skin is warm, dry and pink Neurologic: awake, alert, and oriented x3 Psychiatric: cooperative, appropriate mood and affect Additional Vitals BP Position/Location: Sitting, Right arm Assessment/Plan 1. Rectal prolapse The patient is here to discuss options for rectal prolapse. She reports that the problem has been going on for a while and has been getting progressively worse. It is becoming harder and harder to reduce the prolapse. She denies constipation or straining. The patient does a lot of standing at work and has been noticing leakage from her anal opening which is affecting her daily life. She had a colonoscopy last year which showed no significant pathology. She did have some adenomatous polyps removed. The rectal prolapse is clinically evident and there is no need for defecography or dynamic pelvic MRI. I will check a CT scan of the abdomen and pelvic regions to ensure that there is no other pathology that is contributing to the problem considering that the patient is complaining of some lower back pain as well as sacral area pain. She seems to have good anal tone on digital rectal exam. Considering the patient's age, I think the best option for her would be a resection rectopexy. The procedure, risks and benefits, and alternatives were all discussed with the patient today. Both open and minimally invasive approaches were discussed. I recommended a robotic assisted resection rectopexy and the patient consented and would like to proceed a soon as possible due to the impact that the problem has on her life. The risks and benefits as well as alternatives were discussed with the patient in details. The risks include but are not limited to anesthesia risks such as drug reactions, aspiration, trauma to the airway, pneumonia, strokes, heart attacks ; and surgical risks such as bleeding, infection, recurrence , adhesions formation, scarring, bowel obstruction, need to convert to an open operation, bowel and other structures injuries including ureters, vessels, bladder, spleen, liver etc. , The possibility of anastomotic leak was also explained, need for reoperation, need for diverting stoma, the possibility of additional morbidity and even mortality as a result of the surgery were also discussed. The small chance of melba the COVID-19 virus in the periprocedural period was discussed with the patient. Medical Decision Making Chronic conditions NOT treated during this visit that affected my overall medical decision making: [] Treatment plans discussed but not opted for at this time: [] Prescribed medication that requires intensive monitoring for toxicity: [] I have reviewed the patient?s medication list for medication interactions/contrai ndications and/or for upcoming procedures: [yes or no] Time Spent with the Patient I have personally spent [30] minutes on this date, directly related to today's patient visit, including pre and post visit work, for this date of service. Time listed does not include time spent on separately billable services. Problem List/Past Medical History Ongoing Diverticulosis Historical Tubular adenoma x2 (2022) Procedure/Surgical History Tubal ligation Tonsillectomy Cholecystectomy Colonoscopy (01/14/2023) Medicatio (more content not included)... Normal [facility] COMPREHENSIVE METABOLIC PANE Ish 09-01-2023 Albumin [Mass/Vol] 4.5 g/dL Normal 3.2-5.3 [facility] Comment on above: Performed By: #### Huseyin BARBOZA 90088-7 #### [facility] ([id number]) [address], [address] [place] [address] ALP [Catalytic activity/Vol] 73 U/L Normal 39-130 [facility] Comment on above: Performed By: #### Huseyin BARBOZA 12729-5 #### [facility] ([id number]) [address], [address] [place] [address] ALT [Catalytic activity/Vol] 21 U/L Normal 0-31 [facility] Comment on above: Performed By: #### Huseyin BARBOZA 13714-4 #### [facility] ([id number]) [address], [address] [place] [address] Anion gap [Moles/Vol] 8 mmol/L Normal 5-15 [facility] Comment on above: Performed By: #### Huseyin BARBOZA, 18639-2 #### [facility] ([id number]) [address], [address] [place] [address] AST [Catalytic activity/Vol] 24 U/L Normal 0-41 [facility] Comment on above: Performed By: #### Huseyin BARBOZA 35635-9 #### [facility] ([id number]) [address], [address] [place] [address] Bilirubin [Mass/Vol] 0.3 mg/dL Normal 0.3-1.2 [facility] Comment on above: Performed By: #### Huseyin BARBOZA, 27435-4 #### [facility] ([id number]) [address] [place] [address] Calcium [Mass/Vol] 9.4 mg/dL Normal 8.5-10.5 [facility] Comment on above: Performed By: #### Huseyin BARBOZA, 78331-5 #### [facility] ([id number]) [address], [address] [place] [address] Chloride [Moles/Vol] 102 mmol/L Normal 98-109 [facility] Comment on above: Performed By: #### Huseyin BARBOZA, 41038-1 #### [facility] ([id number]) [address] [place] [address] CO2 [Moles/Vol] 30 mmol/L Normal 22-32 [facility] Comment on above: Performed By: #### Huseyin BARBOZA, 28641-7 #### [facility] ([id number]) [address], [address] [place] [address] Creatinine [Mass/Vol] 0.58 mg/dL Normal 0.40-1.00 [facility] Comment on above: Result Comment: METH OD TRACEABLE TO IDMS STANDARD Performed By: #### Huseyin BARBOZA, 54239-9 #### [facility] ([id number]) [address], [address] [place] [address] eGFR (CKD-EPI) NON-RACE DEPENDENT >90 Normal >59 [facility] Comment on above: Result Comment: Reported eGFR is based on the CKD-EPI 2021 equation that does not use a race coefficient. Performed By: #### Huseyin BARBOZA, 07769-6 #### [facility] ([id number]) [address] [place] [address] Glucose [Mass/Vol] 98 mg/dL Normal 65-99 [facility] Comment on above: Performed By: #### Huseyin BARBOZA, 02590-1 #### [facility] ([id number]) [address], [address] [place] [address] Potassium [Moles/Vol] 4.5 mmol/L Normal 3.5-5.0 [facility] Comment on above: Performed By: #### Huseyin BARBOZA, 26878-9 #### [facility] ([id number]) [address], [address] [place] [address] Protein [Mass/Vol] 6.9 g/dL Normal 6.0-8.0 [facility] Comment on above: Performed By: #### Huseyin BARBOZA, 43112-6 #### [facility] ([id number]) [address], [address] [place] [address] Sodium [Moles/Vol] 140 mmol/L Normal 134-146 [facility] Comment on above: Performed By: #### Huseyin BARBOZA, 08455-9 #### [facility] ([id number]) [address], [address] [place] [address] Urea nitrogen [Mass/Vol] 12 mg/dL Normal 5-27 [facility] Comment on above: Performed By: #### Huseyin BARBOZA, 76736-3 #### [facility] ([id number]) [address], [address] [place] [address] Lipid 1996 panelon 4 Cholesterol [Mass/Vol] 191 mg/dL Normal 150-200 [facility] Comment on above: Performed By: #### Huseyin BARBOZA, 59582-0 #### [facility] ([id number]) [address] [place] [address] Cholesterol in HDL [Mass/Vol] 54 mg/dL Normal >39 [facility] Comment on above: Result Comment: HDL <40 mg/dL - High Risk HDL > or = 40mg/dL- Desirable HDL >60 mg/dL - Negative Risk Performed By: #### Huseyin BARBOZA, 35510-5 #### [facility] ([id number]) [address], [address] [place] [address] Cholesterol in LDL [Mass/Vol] 111 mg/dL Normal <130 [facility] Comment on above: Result Comment: LDL <100 mg/dL - Desirable LDL >160 mg/dL - High Risk Performed By: #### Huseyin BARBOZA, 20961-8 #### [facility] ([id number]) [address] [place] [address] Cholesterol in VLDL [Mass/Vol] 26 mg/dL Normal 0-30 [facility] Comment on above: Performed By: #### Huseyin BARBOZA, 20020-7 #### [facility] ([id number]) [address], [address] [place] [address] CHOLESTEROL:HDL 3.5 Normal 1.0-5.0 [facility] Comment on above: Performed By: #### Huseyin BARBOZA, 61905-5 #### [facility] ([id number]) [address], [address] [place] [address] Triglyceride [Mass/Vol] 130 mg/dL Normal 27-150 [facility] Comment on above: Performed By: #### Huseyin BARBOZA, 34423-4 #### [facility] ([id number]) [address] [place] [address] POCT EKGOrdered By: Cami quezada on 06-15-2023 [facility] Outside Colonoscopyon 2022 Outside Colonoscopy [id number] 7#1.00CD:127 Normal [facility] Pathology Noteon 01-21-2023 Pathology Note [id number] #1.00CD:127 [facility] Reminderson 01-21-2023 Reminders - From: Elisa Patel LPN To: [facility] - Clinical; Sent: 01/21/2023 10:07:40 EDT Show up: 12/15/2027 07:00:00 EDT Subject: colonoscopy recall Due Date/Time: 01/15/2028 07:00:00 EDT Reminder/Recall Patient due for surveillance colonoscopy 01/15/2028. [facility] Insurance Correspondenceon 0 12-26-2022 Insurance Correspondence [id number] 7#1.00CD:127 [facility] Consent for Procedure/Surger yon 12-17-2022 Consent for Procedure/Surgery [id number] #1.00CD:127 [facility] Facesheeton 12-17-2022 Facesheet [id number] #1.00CD:127 [facility] Ambulatory Visit Summaryon 0 12-16-2022 Ambulatory Visit Summary PETRONA GORDON :1960 Visit Date:12/16/2022 Ambulatory Visit Instructions Your Diagnosis Screening for malignant neoplasm of colon Your Care Team Attending Physician - RAO RODRÍGUEZ, Rohit Toro Primary Care Physician - ROHITH ARCHER DO [...] Screening for malignant neoplasm of colon Normal [facility] Physician Referralon 023 Physician Referral [id number] #1.00CD:127 Normal [facility] CT LUNG CANCER SCREENINGon 0 09-29-2022 [...] by: GABRIEL ROBERTSON Date: 2022-09-29 17:03 Normal [facility] COVID + FLU Quick Testingon 05-31-2022 SARS-CoV-2 (COVID-19) RNA MILAN+probe Ql (Unsp spec) Negative [employer] Other COVID + FLU Quick Testing Negative [employer] Other XR chest 2V*on 05-31-2022 XR chest 2V* [facility] [address] [place] [address] XRay Report Signed Patient: Petrona Gordon MR#: [id number] : 1960 Acct:[id number] Age/Sex: 61 / F ADM Date: 05/31/22 Loc: XDUC Room: Type: [facility] Attending Dr: Janice MORELOS Copies to: JETHRO Robles Ordering Provider: [...] Keyonna Head M.D.05/31/2022 1:14 PM Dictation Location: [place] [address] Transcribed By: [facility] 05/31/22 1314 Dictated By: Keyonna Head MD 05/31/22 1313 Signed By: 05/31/22 1314 Normal [facility] XR chest 2V* [facility] [employer] Other XR chest 2V* [facility] [employer] Other XR chest 2V* [address] [facility] [employer] Other XR chest 2V* [place] [address] [facility] [employer] Other XR chest 2V* XRay Report Home [employer] [facility] Other XR chest 2V* Signed [facility] [employer] Other XR chest 2V* Patient: Petrona Gordon MR#: [id number] [employer] Other XR chest 2V* [id number] [employer] Other XR chest 2V* : 1960 Acct:[id number] [employer] Other XR chest 2V* Age/Sex: 61 / F ADM Date: 05/31/22 [employer] Other XR chest 2V* Loc: XDUCLY Room: Type: REG CLI [employer] Other XR chest 2V* Attending Dr: Janice MORELOS [employer] Other XR chest 2V* Copies to: JETHRO Robles [employer] Other XR chest 2V* Ordering Provider: JETHRO Robles [employer] Other XR chest 2V* Date of Service: 05/31/22 [employer] Other XR chest 2V* XR/XR chest 2V*: COUGH [employer] Other XR chest 2V* PA AND LATERAL CHEST: [employer] Other XR chest 2V* CLINICAL HISTORY: Chest tightness on the right and productive cough [employer] Other XR chest 2V* COMPARISON: None [employer] Other XR chest 2V* The lungs are hyperinflated. There are minor chronic changes. There is no focal parenchymal [employer] Other XR chest 2V* consolidation, effusion or pneumothorax. The cardiac, hilar and mediastinal silhouettes are within [employer] Other XR chest 2V* normal limits. There is no vascular congestion. The visualized bony thorax is intact. Endplate [employer] Other XR chest 2V* spurring is present. No rth [facility] [employer] Other XR chest 2V* XR/XR chest 2V* [facility] [employer] Other XR chest 2V* IMPRESSION: [employer] Other XR chest 2V* OBSTRUCTIVE LUNG DISEASE. Home [employer] [facility] Other XR chest 2V* NO ACUTE CARDIOPULMONARY ABNORMALITY. Home [employer] [facility] Other XR chest 2V* Impression dictated by: Keyonna Head M.D.05/31/2022 1:14 PM [facility] [employer] Other XR chest 2V* Dictation Location: [address] [employer] [facility] Other XR chest 2V* Transcribed By: LAUREEN 05/31/[address] [place] [address] [employer] Other XR chest 2V* Dictated By: Keyonna Head MD 05/31/22 [facility] [employer] Other XR chest 2V* Signed By: [employer] Other XR chest 2V* 05/31/22 [facility] [employer] [facility] [employer] Other COVID Quick Testingon 2021 Result Positive Home [employer] [facility] Other XR CSPINE 2_3 VIEWSon 2021 XR [...] paraspinous abnormality is seen. OTHER: Negative. 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 Electronically authenticated by: LOLIS CALLAWAY Date: 2021-10-14 07:09 Normal [facility] COVID Quick Testingon 2020 Result Negative [employer] Other Vital Signs Date Time Vital Sign Value Performing Clinician Facility 07-31-2023 10:55-0500 Body height 160 cm Rohith Furlong DO Work Phone: [facility] [employer] [facility] 07-31-2023 10:55-0500 Body mass index (BMI) [Ratio] 23.38 kg/m2 Rohith Furlong DO Work Phone: [facility] [employer] [facility] 07-31-2023 10:55-0500 Body temperature 97.9 [degF] Rohith Furlong DO Work Phone: [facility] [employer] [facility] 07-31-2023 10:55-0500 Body weight 59.88 kg Rohith Furlong DO Work Phone: [facility] [employer] [facility] 07-31-2023 10:55-0500 Diastolic blood pressure 70 mm[Hg] [facility] 07-31-2023 10:55-0500 Heart rate 100 /min Rohith Furlong DO Work Phone: [facility] [employer] [facility] 07-31-2023 10:55-0500 SaO2% (BldA) [Mass fraction] 95 % Rohith Furlong DO Work Phone: [facility] [employer] [facility] 07-31-2023 10:55-0500 Systolic blood pressure 120 mm[Hg] Rohith Furlong DO [facility] 06-15-2023 15:31-0500 Body height 160 cm Anais Toni PINON Work Phone: [facility] [employer] 06-15-2023 15:31-0500 Body mass index (BMI) [Ratio] 24.13 kg/m2 Anais Toni CALLE-KATIE Work Phone: [facility] [employer] [facility] 06-15-2023 15:31-0500 Body temperature 97.81 [degF] Anais MORANGEOLOGY TECHNICIAN Work Phone: Intern 06-15-2023 15:31-0500 Body weight 61.78 kg Anais MORANGEOLOGY TECHNICIAN Work Phone: Intern 06-15-2023 15:31-0500 Diastolic blood pressure 60 mm[Hg] Anais MORANGEOLOGY TECHNICIAN Work Phone: Intern 06-15-2023 15:31-0500 Heart rate 81 /min Anais MORANGEOLOGY TECHNICIAN Work Phone: Intern 06-15-2023 15:31-0500 SaO2% (BldA) [Mass fraction] 94 % Anais MORANGEOLOGY TECHNICIAN Work Phone: Intern 06-15-2023 15:31-0500 Systolic blood pressure 110 mm[Hg] Anais MORANGEOLOGY TECHNICIAN Work Phone: Intern 05-31-2022 13:30-0500 Body height 160.02 cm Janice Rahman Other [employer] Other 05-31-2022 13:30-0500 Body mass index (BMI) [Ratio] 26.04 kg/m2 Janice Rahman Other [employer] Other 05-31-2022 13:30-0500 Body temperature 97.8 [degF] Janice Rahman Other [employer] Other 05-31-2022 13:30-0500 Body weight 66.68 kg Janice Rahman Other [employer] Other 05-31-2022 13:30-0500 Diastolic blood pressure 74 mm[Hg] Janice Rahman Other [employer] Other 05-31-2022 13:30-0500 Respiratory rate 18 /min Janice Rahman Other [employer] Other 05-31-2022 13:30-0500 SaO2% (BldA) [Mass fraction] 98 % Janice Lacey Other [employer] Other 05-31-2022 13:30-0500 Systolic blood pressure 118 mm[Hg] Janice Lacey Other [employer] Other 11-30-2021 15:35-0400 Body height 160.02 cm Janice Lacey Other [employer] Other 11-30-2021 15:35-0400 Body mass index (BMI) [Ratio] 25.68 kg/m2 Janice Lacey Other [employer] Other 11-30-2021 15:35-0400 Body temperature 97.7 [degF] Janice Lacey Other [employer] Other 11-30-2021 15:35-0400 Body weight 65.77 kg Janice Lacey Other [employer] Other 11-30-2021 15:35-0400 Respiratory rate 18 /min Janice Lacey Other [employer] Other 11-30-2021 15:35-0400 SaO2% (BldA) [Mass fraction] 96 % Janice Lacey Other [employer] Other Encounters Encounter Date Encounter Type Care Provider Facility Start: 02-26-2024 End: 02-28-2024 Evaluation and management of inpatient Eveline Ozuna MD Facility:[facility] Start: 02-24-2024 End: 02-24-2024 Orders Only Rohith Archer DO Work Phone: [facility] Comment on above: Lung nodule, solitar y (Primary Dx) Start: 02-22-2024 End: 02-22-2024 ambulatory [facility] Start: 02-18-2024 End: 02-18-2024 ambulatory Eveline Ozuna MD Facility:[facility] Start: 02-16-2024 End: 02-16-2024 ambulatory Eveline Ozuna MD Facility:[facility] Start: 02-09-2024 End: 02-09-2024 ambulatory Eveline Ozuna MD Facility[facility] Start: 02-04-2024 End: 02-04-2024 ambulatory Eveline Ozuna MD Facility:[facility] Start: 09-01-2023 End: 09-02-2023 ambulatory [facility] Start: 09-01-2023 Encounter for genera l adult medical examination without abnormal findings [facility] Start: 09-01-2023 End: 09-01-2023 ambulatory [facility] Start: 09-01-2023 Encounter for genera l adult medical examination without abnormal findings [facility] Start: 08-07-2023 Orders Only Anais Muñoz FLOOR PERSON-GEOLOGY TECHNICIAN Work Phone: [facility] Comment on above: Rib pain on right si de (Primary Dx) Start: 07-31-2023 End: 07-31-2023 Office outpatient visit 15 minutes [facility]ithgela Kim [facility] Comment on above: Acute pain of left s houlder (Primary Dx) Start: 07-31-2023 End: 07-31-2023 ambulatory [facility] Start: 07-17-2023 End: 07-18-2023 ambulatory [facility] Start: 07-01-2023 Orders Only Anais Muñoz FLOOR PERSON-GEOLOGY TECHNICIAN [facility] Comment on above: Other chest pain (Pr imary Dx); Ventricular premature depolarization Start: 06-29-2023 End: 06-30-2023 ambulatory [facility] Start: 06-17-2023 Orders Only Anais Muñoz FLOOR PERSON-GEOLOGY TECHNICIAN Work Phone: [facility] Comment on above: Acute chest wall erwin n (Primary Dx) Other chest pain (Pr imary Dx) Start: 06-15-2023 End: 06-15-2023 Office outpatient visit 15 minutes Anais Muñoz FLOOR PERSON-GEOLOGY TECHNICIAN Work Phone: [facility] Comment on above: Acute chest wall erwin n (Primary Dx) Start: 06-15-2023 End: 06-15-2023 ambulatory [facility] Start: 05-30-2023 Refill Rohith gramajo DO [facility] Comment on above: Mixed hyperlipidemia Start: 01-14-2023 End: 01-15-2023 ambulatory Rohit YEH Facility:CD:[id number] Start: 12-16-2022 End: 12-17-2022 ambulatory ROHITH ARCHER Facility:[facility] Start: 11-27-2022 ambulatory ROHITH ARCHER Facility :[facility] Start: 09-29-2022 End: 09-30-[address] ROHITH ARCHER Facility:[facility] Start: 05-31-2022 End: 05-31-2022 ambulatory Janice Rahman Facility:[facility] Start: 05-31-2022 Office outpatient vi sit 25 minutes Janice Rahman [facility] Start: 05-31-2022 End: 05-31-2022 ambulatory DO Rohith Kimng Work Phone: [facility] Work Phone: Start: 05-31-2022 End: 05-31-2022 Patient encounter procedure DO Rohith Furlong Work Phone: [facility] Work Phone: Start: 11-30-2021 End: 11-30-2021 ambulatory Janice Rahman Other [employer] Other Start: 11-30-2021 Office outpatient vi sit 15 minutes Janice Rahman [facility] Start: 10-12-2021 End: 10-13-[address] ROHITH Martin [place] Facility: Start: 04-17-2021 End: 04-17-2021 ambulatory Janice Rahman Other [employer] Other Start: 04-17-2021 Office outpatient vi sit 5 minutes Janice Rahman [facility] Procedures Date Procedure Procedure Detail Performing Clinician Start: 02-22-2024 Adult depression scr eening assessment Rohith Furlong DO Work Phone: Start: 10-06-2023 Mammography Rohith Fur long DO Work Phone: Start: 07-31-2023 Adult depression scr eening assessment Rohith Furlong DO Work Phone: Start: 06-15-2023 Ecg routine ecg w/le ast 12 lds w/i&r Anais Muñoz FLOOR PERSON-GEOLOGY TECHNICIAN Work Phone: Start: 06-15-2023 Adult depression scr eening assessment Anais Muñoz FLOOR PERSON-GEOLOGY TECHNICIAN Work Phone: Start: 01-14-2023 Colonoscopy Rohith Fur long DO Work Phone: Start: 12-08-2022 Adult depression scr eening assessment Rohith Furlong DO Work Phone: Start: 05-31-2022 Plain chest X-ray DO De nnis Furlong Work Phone: Plan of Treatment Date Care Activity Detail Author Start: 01-14-2033 Screening for malign ant neoplasm of colon Colonoscopy [facility] Start: 03-22-2029 DTaP,Tdap and Td Vaccines (2 - Td or Tdap) DTaP,Tdap and Td Vaccines (2 - Td or Tdap) [facility] Start: 02-21-2025 Adult BMI Screening Adult BMI Screen ing [facility] Start: 02-21-2025 Depression Screening Depression Scre ening [facility] Start: 02-21-2025 Tobacco Screening Tobacco Screening [facility] Start: 10-05-2024 Screening for malign ant neoplasm of breast Mammogram [facility] Start: 07-30-2024 Adult BMI Screening Adult BMI Screen ing [facility] Start: 07-30-2024 Depression Screening Depression Scre ening [facility] Start: 07-30-2024 Tobacco Screening Tobacco Screening [facility] Start: 06-29-2024 Adult BMI Screening Adult BMI Screen ing [facility] Start: 06-15-2024 Adult BMI Screening Adult BMI Screen ing [facility] Start: 06-15-2024 Depression Screening Depression Scre ening [facility] Start: 06-15-2024 Tobacco Screening Tobacco Screening [facility] Start: 05-25-2024 Administration of varicella zoster vaccine Zoster (Shingles) Vaccine (1 of 2) [facility] Comment on above: Postponed from 11/16 (Patient Refused) Start: 02-24-2024 End: 02-23-2025 CT Chest limited W contrast IV CT chest with contrast Imaging Routine Lung nodule, solitary Expected: 02/24/2024, Expires: 02/23/2025 [employer] Work Phone: Comment on above: Expected: 02/24/2024 , Expires: 02/23/2025 Start: 01-24-2024 COVID-19 Vaccine ( season) COVID-19 Vaccine ( season) [facility] Start: 01-24-2024 Influenza vaccination Influenza Vacc ine [facility] Start: 12-09-2023 Adult BMI Screening Adult BMI Screen ing [facility] Start: 12-09-2023 Depression Screening Depression Scre ening [facility] Start: 12-09-2023 Tobacco Screening Tobacco Screening [facility] Start: 09-01-2023 End: 09-01-2023 Patient encounter procedure 09/01/2023 3:30 PM EDT Office Visit [facility] [address] [place] [address] Rohith Archer, DO [address] [place] [address] [facility] Start: 07-31-2023 End: 07-30-2024 XR Shoulder - left 2 Views X-ray shoulder left minimum 2 views Imaging Routine Acute pain of left shoulder Expected: 07/31/2023, Expires: 07/30/2024 [facility] Work Phone: Comment on above: Expected: 07/31/2023 , Expires: 07/30/2024 Start: 07-01-2023 End: 07-01-2024 Echo stress treadmill W/O contrast Echo stress treadmill W/O contrast Cardiac Services Routine Other chest pain Ventricular premature depolarization Expected: 07/01/2023, Expires: 07/01/2024 [facility] Work Phone: Comment on above: Expected: 07/01/2023 , Expires: 07/01/2024 Start: 06-17-2023 End: 06-17-2024 Exercise stress test study Stress test (exercise only) Cardiac Services Routine Other chest pain Expected: 06/17/2023, Expires: 06/17/2024 [facility] Work Phone: Comment on above: Expected: 06/17/2023 , Expires: 06/17/2024 Start: 06-15-2023 End: 06-15-2024 XR Ribs - left Views and Chest PA X-ray ribs left 3 views with pa chest Imaging Routine Acute chest wall pain Expected: 06/15/2023, Expires: 06/15/2024 [facility] Work Phone: Comment on above: Expected: 06/15/2023 , Expires: 06/15/2024 Start: 01-23-2023 COVID-19 Vaccine ( season) COVID-19 Vaccine ( season) [facility] Start: 01-23-2023 Influenza vaccination Influenza Vacc ine [facility] Start: 2010 Administration of varicella zoster vaccine Zoster (Shingles) Vaccine (1 of 2) [facility] Start: 1981 Screening for malign ant neoplasm of cervix Pap Smear [facility] End: 02-23-2025 Creatinine includes GFR, serum Creatinine includes GFR, serum Lab Routine Lung nodule, solitary 1 Occurrences starting 02/24/2024 until 02/23/[address] [facility] Comment on above: 1 Occurrences starti ng 02/24/2024 until 02/23/2025 Immunizations Immunization Date Immunization Notes Care Provider Greg marquez 03-22-2019 Influenza, injectabl e, Madin Selina Canine Kidney, quadrivalent with preservative Rohith Furlong DO Work Phone: [facility] 03-22-2019 tetanus toxoid, redu jenn diphtheria toxoid, and acellular pertussis vaccine, adsorbed Rohith FurAPJeTng DO Work Phone: [facility] 03-22-2019 influenza virus vaccine, unspecified formulation Rohith Furlong DO Work Phone: [facility] Payers Date Payer Category Payer Self-pay [id number] 2016 Private Health Insurance [id number] 1960 Unknown [id number] 2.16.84 0.1.641195.3.579.2.593 1960 Unknown [id number] 2.16.84 0.1.726778.3.579.2.593 1960 Unknown [id number] 2.16.8 40.1.407617.3.579.2.727 1960 Unknown [id number] 2.16.8 40.1.682425.3.579.2.727 1960 Unknown [id number] 2.16.8 40.1.622982.3.579.2.1286 1960 Unknown [id number] 2.16.8 40.1.161249.3.579.2.1286 1960 Unknown [id number] 2.16.8 40.1.958549.3.579.2.1286 1960 Unknown [id number] 2.16.8 40.1.897230.3.579.2.1286 1960 Unknown [id number] 2.16.8 40.1.421968.3.579.2.1286 1960 Unknown [id number] 2.16.8 40.1.781067.3.579.2.1286 1960 Unknown [id number] 2.16.84 0.1.399509.3.579.2.128 1960 Unknown [id number] 2.16. 840.1.535353.3.579.2. 1960 Unknown [id number] 2.16 840.1.098519.3.579.2. 1960 Unknown [id number] 2.16. 840.1.582687.3.579.2. 1960 Unknown [id number] 2.16. 840.1.917573.3.579.2. 1960 Unknown [id number] 2.16. 840.1.745150.3.579.2. 1960 Unknown [id number] 2.16 840.1.286002.3.579.2. 1960 Unknown [id number] 2.16. 840.1.997204.3.579.2.196 1960 Unknown [id number] 2.16. 840.1.515362.3.579.2.196 1959 Private Health Insurance [id number] Private Health Insurance [id number] [id number] Unknown [id number] 2.16.8 40.1.616054.3.579.2.531 Social History Date Type Detail Facility Unknown if ever smoked [facility] [employer] Other Start: 08-25-2022 End: 09-01-2023 Sex Assigned At [employer] Other Start: 1960 Sex Assigned At Female [facility] Start: 08-25-2022 End: 02-22-2024 Tobacco smoking status DEIS Ex-smoker [facility] Start: 11-17-1973 End: 11-28-2020 History of tobacco use Current smoker [facility] Start: 11-17-1973 End: 11-28-2020 History of tobacco use Cigarette Smoker [facility] Start: 08-25-2022 End: 09-01-2023 Cigarettes smoked current (pack per day) - Reported [address] [facility] Start: 08-25-2022 End: 02-22-2024 Tobacco use and exposure Smokeless tobacco non-user [facility] Start: 01-22-2023 End: 02-24-2024 Alcohol intake Lifetime non-drinker (finding) [facility] Do you belong to any clubs or organizations such as yarsani groups, unions, fraternal or athletic groups, or school groups? No [facility] Are you now , , , , never or living with a partner? Never [facility] How often to you hav e a drink containing alcohol? Never [facility] How many standard dr inks containing alcohol do you have on a typical day? Patient does not drink [facility] Do you feel stress - tense, restless, nervous, or anxious, or unable to sleep at night because your mind is troubled all the time - these days [OSQ] Only a little [facility] Start: 1960 Sex Assigned At Not on file [facility] Clinical Notes 04-17-2021 to 08-07-2023 Anais Muñoz, ZI - 08/07/2023 12:21 PM EDTRohith Archer, DO - 07/31/2023 10:45 AM Rebecca Muñoz, ZI - 06/15/2023 3:20 PM EST Note Date & Type Note Facility 08-07-2023 History of Present illness Narrative Spoke with her on the phone, she has had no relief of her pain. The previous prednisone and the medrol dose pack didn't help. She is in constant pain. When she moves the pain in creases and the pain is just beneath her right scapula and on her right side. We agreed to continue her extra strength tylenol she is taking and then will add meloxicam 15 mg daily, if this isn't helpful she is going to call back on / next week and we will try adding ultram Anais Muñoz, ZI 08/07/23 1226 documented in this encounter [facility] 07-31-2023 History of Present illness Narrative Subjective Patient ID: Petrona Gordon is a 62 y.o. female. Petrona presents for left shoulder pain. It has been going on for over a month now. Seems to have been exacerbated by her recent illness. She thought she had pleurisy. She had a stress test and it was low risk. It is not exertional. Hurts more with movement. It aches in her left upper arm and over by her scapula and under her axilla. The following portions of the patient's history were reviewed and updated as appropriate: allergies, current medications, past family history, past medical history, past social history, past surgical history, problem list, and medication reconciliation was completed including current medication and post discharge medication. Review of Systems Objective Physical Exam Constitutional: Appearance: She is normal weight. HENT: Head: Normocephalic. Musculoskeletal: General: Tenderness present. Left shoulder: Tenderness present. No swelling, deformity, effusion, laceration, bony tenderness or crepitus. Normal range of motion. Normal strength. Normal pulse. Comments: Negative empty can test. Equivocal impingement sign [id number] and Neer's test. Negative Adson's test. Neurological: General: No focal deficit present. Mental Status: She is alert and oriented to person, place, and time. Psychiatric: Mood and Affect: Mood normal. Behavior: Behavior normal. Thought Content: Thought content normal. Judgment: Judgment normal. Assessment/Plan Petrona was seen today for shoulder pain. Diagnoses and all orders for this visit: Acute pain of left shoulder - methylPREDNISolone (MEDROL, TITUS,) 4 mg tablet; Take 1 tablet (4 mg total) by mouth in the morning. follow package directions. - X-ray shoulder left minimum 2 views; Future I suspect a rotator cuff tendinitis bursitis issue. Rotator cuff seems to be intact. Will do a burst of steroid. Check x-ray of shoulder. Shoulder exercises given. documented in this encounter [facility] 06-15-2023 History of Present illness Narrative Subjective [...] pain except with movement ZI Casey 06/15/23 6062 documented in this encounter [facility] 12-16-2022 Note Chief Complaint consultation for screening [...] Recorded SARS-CoV-2 (COVID-19) mRNA-1273 vaccine 09/20/2020 Recorded [facility] Comment on above: Result Comment: Elec tronically Signed By: RAO RODRÍGUEZ, Rohit Weiss\Date and Time Signed: 12/16/22 15:14 EDT 05-31-2022 [...] May, Right-sided chest pain (ICD-10 - R07.9) [employer] Other 07-09-2022 Evaluation note* Encounter Date Diagnosis [...] Patient care instructions given in writing by [facility] document. [employer] Other 11-24-2021 Evaluation note* Encounter Date Diagnosis [...] Patient care instructions given in writting by [facility] document. [employer] Other Evzsouihrg noteNo assessment information available [facility] Work Phone: evaluation note* Diagnosis Mixed hyperlipidemia [facility] Diagnosis Acute chest wall pain- Primary [facility] Diagnosis Acute chest wall pain- Primary [facility] Diagnosis Other chest pain- Primary [facility] Diagnosis Other chest pain- Primary Ventricular premature depolarization Other premature beats [facility] Diagnosis Acute pain of left shoulder- Primary documented in this encounter [facility]* Diagnosis Rib pain on right side- Primary [facility] Diagnosis Lung nodule, solitary- Primary [facility] N[facility]ative - Reported* Type Description Date Surgical History tonsillectomy Surgical History cholecystectomy Surgical History tubal ligation Surgical History cyst removal from neck Hospitalization History see above [employer] Other InstructionsNot on filedocumented in this encounter [facility] filedocumented in this encounter [facility] on filedocumented in this encounter [facility] on filedocumented in this encounter [facility]* Attachments The following attachments cannot be sent through Care Everywhere. * Rotator Cuff Tendinitis Stretching Exercises (Czech) * Shoulder Bursitis Exercises (Czech) documented in [facility] SystemInstructionsNot on file documented in [facility] SystemInstructionsNot on file documented in [facility]Pro[facility] Advance Directives No Advanced Directives Records [...] By Contac t Referred To Contact Diagnoses Lung nodule, solitary Procedures CT chest with contrast Rohith Archer DO [address] [facility] [address] Referral ID Status Reason Start Date Expiration Date V isits Requested Visits Authorized [id number] Pending Review 02/24/2024 02/23/2025 1 1 Specialty Diagnoses / Procedures Referred By Contac t Referred To Contact Diagnoses Other chest pain Ventricular premature depolarization Procedures Echo stress treadmill W/O contrast JoseAnais strattonJany, FLOOR PERSON-GEOLOGY TECHNICIAN [address] [place] [address] Referral ID Status Reason Start Date Expiration Date V isits Requested Visits Authorized [id number] Pending Review 07/01/2023 06/30/2024 5 5 Specialty Diagnoses / Procedures Referred By Contac t Referred To Contact Diagnoses Other chest pain Procedures Stress test (exercise only) Anais Muñoz, FLOOR PERSON-GEOLOGY TECHNICIAN [address] [place] [address] Referral ID Status Reason Start Date Expiration Date V isits Requested Visits Authorized [id number] Pending Review 06/17/2023 06/16/2024 5 5 Additional Source Comments REASON FOR VISIT (unrecogniz ed section and content) Reason Comments Med Refill Reason Comments Cough Chest pain. 3 weeks Reason Comments Shoulder Pain Care Teams (unrecognized sec tion and content) Team Status: Inactive Member Role Status Dates Rohith Archer DO Primary Care Provider Active JETHRO Steele Attending Provider Active Team Status: Active Member Role Status Dates Rohith Archer DO Primary Care Provider Active Dental Patient Coordinator Relationship Specialty Start Date End Date Rohith Archer DO [address] [facility] [address] PCP - General Family Medicine 06/02/22 Dental Patient Coordinator Relationship Specialty Start Date End Date Rohith Archer DO [address] [place] [address] PCP - General Family Medicine 06/02/22 Dental Patient Coordinator Relationship Specialty Start Date End Date Rohith Archer DO [address] [place] [address] PCP - General Family Medicine 06/02/22 Dental Patient Coordinator Relationship Specialty Start Date End Date Rohith Archer DO [address] [place] [address] PCP - General Family Medicine 06/02/22 Dental Patient Coordinator Relationship Specialty Start Date End Date Rohith Archer DO [address] [place] [address] PCP - General Family Medicine 06/02/22 Dental Patient Coordinator Relationship Specialty Start Date End Date Rohith Archer DO [address] [place] [address] PCP - General Family Medicine 06/02/22 Dental Patient Coordinator Relationship Specialty Start Date End Date Rohith Archer DO [address] [place] [address] PCP - General Family Medicine 06/02/22 Goals (unrecognized section and content) Goals may be documented in a n alternate section INFORMATION SOURCE (unrecogn ized section and content) DATE CREATED AUTHOR 06/18/2022 [facility] DATE CREATED AUTHOR AUTHOR'S LINDA ATION 10/03/2022 [facility] DATE CREATED AUTHOR AUTHOR'S ORGANIZ ATION 01/22/2023 [facility] DATE CREATED AUTHOR AUTHOR'S ORGANIZ ATION 07/24/2023 [facility] DATE CREATED AUTHOR AUTHOR'S ORGANIZ ATION 09/03/2023 [facility] DATE CREATED AUTHOR AUTHOR'S ORGANIZ ATION 02/23/2024 [facility] DATE CREATED AUTHOR AUTHOR'S ORGANIZ ATION 03/01/2024 [facility] FOR RECORDS PERTAINING TO PATIENTS WHO ARE [...] BE BASED ON THE PRIMARY CLINICAL RECORDS. [facility] [employer] [facility]. provides no warranty or guarantee of the accuracy or completeness of information in this document.
--- NOTE | 2024-03-03 09:09 | CT_ITS ---
[address] [address] Patient Name: PETRONA GORDON MRN: [id number] date: 1960 Sex: F Assigned Patient Location: CT Current Patient Location: Accession/Order Number: [id number] Exam Date: 03/03/2024 09:30 Report Date: 03/04/2024 04:39 At the request of: RELL JEFFERSON Procedure: CT chest w con EXAMINATION: CT chest w con HISTORY: Lung Nodule seen on CT abdomen study COMPARISON: CT abdomen pelvis 02/16/2024, CT lung screening 10/06/2023 through 07/30/2019 TECHNIQUE: Multi-planar CT images were obtained without and/or with IV contrast as indicated by examination type. Axial, Coronal, and Sagittal images. Dose reduction techniques were achieved by using automated exposure control and/or adjustment of mA and/or kV according to patient size and/or use of iterative reconstruction technique. FINDINGS: LUNGS: 10 x 7 mm area of greater density within anterior inferior aspect of lingula abutting the prominent pericardial fat pad which has varied in size on studies since 07/30/2019; smaller on today's study, favoring atelectasis or consolidation. No convincing nodule. Mild emphysematous changes throughout the lungs. PLEURA: 3 VASCULATURE: No abnormality. JOSE: No mass or adenopathy. MEDIASTINUM: No mass or adenopathy. CARDIAC: No enlargement or pericardial thickening.. Coronary artery calcifications: AORTA: No aneurysm or dissection. CHEST WALL: No mass or axillary adenopathy. BONES: No bone lesion or fracture. LIMITED ABDOMEN: No suspicious findings Limited images of the upper abdomen. OTHER: Negative. CT/CT chest w con IMPRESSION: 1. Chronic soft tissue opacity within anterior inferior tip of lingula suspected represent atelectasis or consolidation. Nodules felt less likely. Appearance varies in size over past several studies but is smaller on today's study. 2. CT lung screening in one year is recommended. Electronically authenticated by: GABRIEL ROBERTSON Date: 03/04/2024 04:39
[2024-03-03 09:15] LABS: Estimated GFR (African America >60 (>=60 mL/min/1.73m^2); Estimated GFR (Non-African Ame >60 (>=60 mL/min/1.73m^2)
== END 2024-03-03 08:54 | disposition home or self-care (01) ==
LOC: CT 08:53
PROVIDERS: PCP Family Medicine; Visit Provider Family Medicine
DX: R91.1 Solitary pulmonary nodule (principal)
CPT/HCPCS: 36415; 71260; 82565; Q9967

== ENCOUNTER 2024-03-07 13:02 | Outpatient (OUT) | payer OTHER, SELFPAY ==
--- OUTSIDE RECORDS SUMMARY | 2024-03-07 13:27 | XMS_ITS | CCD ---
Author Organization [facility] Inform ion Partnership [facility] Care Team Providers Care Yarn Cleaner Name Role Phone Janice Rahman Unavailable DO Rohith Archer Primary Care Provider JETHRO Rahman Attending Provider Janice Rahman Attending Unavailable Janice Rahman Admitting Unavailable FurlongRohith Primary Care Unavailable FURLONG, DR ROHITH Martin Admitting Unavailable FURLONG, DR ROHITH Martin Attending Unavailable FURLONG, DR ROHITH Martin Consulting Unavailable FURLONG, DR ROHITH Martin Primary Care Unavailable OWASSO, DR LOLIS Haider Consulting Unavailable FURLONG, DR ROHITH Martin Primary Care Unavailable FURLONG, DR ROHITH Martin Admitting Unavailable FURLONG, DR ROHITH Martin Attending Unavailable FURLONG, DR ROHITH Martin Consulting Unavailable ZIEBER, DR GABRIEL Toro Consulting Unavailable SRINILONGROHITH Referring Unavailable NILLRohit Attending Unavailable NILLRohit Attending Unavailable Furlong DORohith Primary Care Provider [phone] SARAY GEORGE Attending Unavailable ANAIS MUÑOZ Referring Unavailable FURLONG, ROHITH Martin Primary Care Unavailable SARAY GEORGE Attending Unavailable ANAIS MUÑOZ Referring Unavailable FURLONG, ROHITH Martin Primary Care Unavailable FURLONG, ROHITH Martin Referring Unavailable FURLONG, ROHITH Mratin Primary Care Unavailable FURLONG, ROHITH Martin Attending Unavailable FURLONGROHITH Referring Unavailable FURLONG, ROHITH Martin Primary Care Unavailable FURLONG, ROHITH Martin Attending Unavailable SRINILONGROHITH Referring Unavailable FURLONG, ROHITH Martin Primary Care Unavailable ANAIS MUÑOZ Attending Unavailable FURLONGROHITH Referring Unavailable FURLONG, ROHITH Martin Primary Care Unavailable FURLONG, ROHITH Martin Attending ROHITH López Mario Referring Bhupinder ROHITH ARCHER [facility] Bhupinder Ozuna MD, J I Attending [facility] DO Rohith Leandro [facility] Tramaine Ozuna MD, J I Attending [facility] Rohith Leandro [facility] Tramaine Ozuna MD, J I Attending [facility] Rohith Leandro [facility] Tramaine Ozuna MD, J I Attending [facility] Tramaine Ozuna MD, J I Attending [facility] Tramaine Ozuna MD, J I Attending [facility] Sul[facility] RODRÍGUEZ, J I Admitting [facility] Rohith Leandro [facility] Tramaine Ozuna MD, J I Attending [facility] Tramaine Ozuna MD, J I Attending [facility] Tramaine nava Allergies Allergy Classification Reported Allergen(s) Allergy Type Date of Onset Reaction(s) Facility (1 source) Unable to Assess Drug allergy (disorder) 0 [facility] Repository (1 source) No Known Medication Allergies; Translations: [No Known Medication Allergies] Propensity to adverse reactions (disorder) [facility] Repository Medications Current Medications Medication Drug Class(es) Dates Sig (Normalized) Sig (Original) [id number] 200 actuat albuterol 0.09 mg/actuat metered dose [...] mouth in the morning. 0 Active vit C,C-Gh-mtwcr-lutein-zeax an (PRESERVISION AREDS-2) 250-90-40-1 mg capsule (1 source) vit C,Z-Yf-euvli-lutein-zeaxan (PRESERVISION AREDS-2) 250-90-40-1 mg capsule Taking,but holding [...] MDRD (S/P/Bld) [Vol rate/Area] mL/min/{1.73_m2} Normal >=60 [facility] Comment on above: Result Comment: [facility] Laboratories have implemented the eGFR calculation [...] 1 Age = years Performed By: #### M G #### [facility] [address] [place] [address] CBC w/ Diffon 02-28-2024 Erythrocyte distribution width (RBC) [Ratio] 13.3 % Normal 11.6-14.8 [facility] Comment on above: Performed By: #### M G #### [id number] [place] [address] Hematocrit (Bld) [Volume fraction] 36.8 % Normal 36.0-46.0 [facility] Comment on above: Performed By: #### M G #### [address] [address] Hemoglobin (Bld) [Mass/Vol] 12.2 g/dL Normal 12.0-16.0 [facility] Comment on above: Performed By: #### M G #### [address] [address] MCH (RBC) [Entitic mass] 30.8 pg Normal 27.0-35.0 [facility] Comment on above: Performed By: #### M G #### [address] [address] MCHC 33.0 % Normal 31.0-37.0 [facility] Comment on above: Performed By: #### M G #### [address] [address] MCV (RBC) [Entitic vol] 93.3 fL Normal 80.0-100.0 [facility] Comment on above: Performed By: #### M G #### [address] [address] Platelet 296 x10*3/mcL Normal 150-450 [facility] Comment on above: Performed By: #### M G #### [address] [address] Platelet mean volume (Bld) [Entitic vol] 7.8 fL Normal 6.7-10.6 [facility] Comment on above: Performed By: #### M G #### [address] [address] RBC 3.95 x10*6/mcL Normal 3.80-5.20 [facility] Comment on above: Performed By: #### M G #### [address] [address] WBC 8.4 x10*3/mcL Normal 4.5-11.0 [facility] Comment on above: Performed By: #### M G #### [address] [address] CMPon 02-28-2024 Albumin [Mass/Vol] 3.4 g/dL Normal 3.2-4.9 [facility] Comment on above: Performed By: #### M G #### [address] [address] Albumin/Globulin [Mass ratio] 1.3 {ratio} Normal 1.1-2.2 [facility] Comment on above: Performed By: #### M G #### [address] [address] Alk Phos 54 IU/L Normal 32-91 [facility] Comment on above: Performed By: #### M G #### [address] [address] ALT [Catalytic activity/Vol] 24 U/L Normal 14-54 [facility] Comment on above: Performed By: #### M G #### [address] [address] Anion gap [Moles/Vol] 10 mmol/L Normal 4-12 [facility] Comment on above: Performed By: #### M G #### [address] [address] AST [Catalytic activity/Vol] 25 U/L Normal 15-41 [facility] Comment on above: Performed By: #### M G #### [address] [address] Bili Total 0.5 mg/dL Normal 0.3-1.2 [facility] Comment on above: Performed By: #### M G #### [address] [address] Calcium [Mass/Vol] 8.8 mg/dL Normal 8.5-10.3 [facility] Comment on above: Performed By: #### M G #### [address] [address] Chloride [Moles/Vol] 100 mmol/L Normal 98-110 [facility] Comment on above: Performed By: #### M G #### [address] [address] CO2 [Moles/Vol] 29 mmol/L Normal 22-32 [facility] Comment on above: Performed By: #### M G #### [address] [address] Creatinine [Mass/Vol] 0.85 mg/dL Normal 0.44-1.03 [facility] Comment on above: Performed By: #### M G #### [address] [address] Glucose [Mass/Vol] 108 mg/dL High 70-99 [facility] Comment on above: Performed By: #### M G #### [address] [address] Potassium [Moles/Vol] 4.3 mmol/L Normal 3.4-4.8 [facility] Comment on above: Performed By: #### M G #### [address] [address] Protein [Mass/Vol] 6.0 g/dL Low 6.5-8.1 [facility] Comment on above: Performed By: #### M G #### [address] [address] Sodium [Moles/Vol] 139 mmol/L Normal 133-142 [facility] Comment on above: Performed By: #### M G #### [address] [address] Urea nitrogen [Mass/Vol] 11 mg/dL Normal 8-26 [facility] Comment on above: Performed By: #### M G #### [address] [address] Urea nitrogen/Creatinine [Mass ratio] 12.9 mg/mg Normal 10.0-20.0 [facility] Comment on above: Performed By: #### M G #### [address] [address] Diff Autoon 02-28-2024 Baso Absolute 0.1 x10*3/mcL Normal 0.0-0.2 [place] Comment on above: Performed By: #### M G #### [address] [address] Basophils/100 WBC (Bld) 0.8 % Normal 0.0-1.5 [facility] Comment on above: Performed By: #### M G #### [address] [address] Eos Absolute 0.1 x10*3/mcL Normal 0.0-0.4 [facility] Comment on above: Performed By: #### M G #### [address] [address] Eosinophils/100 WBC (Bld) 0.8 % Normal 0.0-5.4 [facility] Comment on above: Performed By: #### M G #### [address] [address] Lymph Absolute 2.2 x10*3/mcL Normal 1.0-4.8 [facility] Comment on above: Performed By: #### M G #### [address] [address] Lymphocytes/100 WBC (Bld) 26.1 % Low 27.2-40.8 [facility] Comment on above: Performed By: #### M G #### [address] [address] [place] Absolute 0.8 x10*3/mcL Normal 0.1-1.1 [place] Comment on above: Performed By: #### M G #### [address] [address] Monocytes/100 WBC (Bld) 9.5 % Normal 3.7-11.9 [facility] Comment on above: Performed By: #### M G #### [address] [address] Neutro Absolute 5.3 x10*3/mcL Normal 1.8-7.7 [facility] Comment on above: Performed By: #### M G #### [address] [address] Neutro Auto 62.8 % Normal 47.2-70.8 [facility] Comment on above: Performed By: #### M G #### [address] [address] Inpatient Clinical Summaryon 02-28-2024 Inpatient Clinical Summary [address] [address] Clinical Summary Person Information Name: Petrona Angeles Age: 63 Years : 1960 Sex: Female PCP: Rohith Archer DO Marital Status: Single Phone: PCP: Race: White Ethnicity: Not or Language: Cypriot Visit Id: Visit Reason: Speciality: Acuity: Enc Type: Inpatient Med Service: Surgery Arrival: 02/26/2024 08:53:02 Discharge: Dispo Type: Address: [address] [place] [address] [address] [facility] [id number] Diagnosis: Post-op pain Discharged To: Home Treatments: [...] range between ( 27.2 and 40.8 ) [place] Auto: 9.5 % -- Normal range between [...] range between ( 36.0 and 46.0 ) [place] Absolute: 0.8 x10 MCH: 30.8 pg -- [...] No Immunizations (more content not included)... Normal [facility] Magnesiumon 02-28-2024 Magnesium [Mass/Vol] 1.8 mg/dL Normal 1.7-2.4 [facility] Comment on above: Performed By: #### M G #### [address] [address] Phosphoruson 02-28-2024 Phosphate [Mass/Vol] 2.7 mg/dL Normal 2.5-4.6 [facility] Comment on above: Performed By: #### M G #### [address] [address] Surgical Progress Noteon Surgical Progress Note Patient tolerating diet did not like her arm at this morning no nausea no vomiting No gas or BM yet Pain is well-controlled Ambulating in the halls Status post sigmoidectomy and rectopexy Awaiting bowel function Discharge this afternoon versus tomorrow Electronically signed by Iván Sapp MD 02/28/24 10:33 EDT Normal [facility] .eGFRon 02-27-2024 GFR/1.73 sq M.predicted MDRD (S/P/Bld) [Vol rate/Area] mL/min/{1.73_m2} Normal >=60 [facility] Comment on above: Result Comment: [facility] have implemented the eGFR calculation [...] 1 Age = years Performed By: #### M G #### [address] [address] CBC w/ Diffon 02-27-2024 Erythrocyte distribution width (RBC) [Ratio] 12.8 % Normal 11.6-14.8 [facility] Comment on above: Performed By: #### M G #### [address] [address] Hematocrit (Bld) [Volume fraction] 36.9 % Normal 36.0-46.0 [facility] Comment on above: Performed By: #### M G #### [address] [address] Hemoglobin (Bld) [Mass/Vol] 12.6 g/dL Normal 12.0-16.0 [facility] Comment on above: Performed By: #### M G #### [address] [address] MCH (RBC) [Entitic mass] 31.4 pg Normal 27.0-35.0 [facility] Comment on above: Performed By: #### M G #### [address] [address] MCHC 34.1 % Normal 31.0-37.0 [facility] Comment on above: Performed By: #### M G #### [address] [address] MCV (RBC) [Entitic vol] 92.0 fL Normal 80.0-100.0 [facility] Comment on above: Performed By: #### M G #### [address] [address] Platelet 329 x10*3/mcL Normal 150-450 [facility] Comment on above: Performed By: #### M G #### [address] [address] Platelet mean volume (Bld) [Entitic vol] 7.9 fL Normal 6.7-10.6 [facility] Comment on above: Performed By: #### M G #### [address] [address] RBC 4.01 x10*6/mcL Normal 3.80-5.20 [facility] Comment on above: Performed By: #### M G #### [address] [address] WBC 11.7 x10*3/mcL High 4.5-11.0 [facility] Comment on above: Performed By: #### M G #### [address] [address] CMPon 02-27-2024 Albumin [Mass/Vol] 3.3 g/dL Normal 3.2-4.9 [facility] Comment on above: Performed By: #### M G #### [address] [address] Albumin/Globulin [Mass ratio] 1.2 {ratio} Normal 1.1-2.2 [facility] Comment on above: Performed By: #### M G #### [address] [address] Alk Phos 62 IU/L Normal 32-91 [facility] Comment on above: Performed By: #### M G #### [address] [address] ALT [Catalytic activity/Vol] 15 U/L Normal 14-54 [facility] Comment on above: Performed By: #### M G #### [address] [address] Anion gap [Moles/Vol] 8 mmol/L Normal 4-12 [facility] Comment on above: Performed By: #### M G #### [address] [address] AST [Catalytic activity/Vol] 19 U/L Normal 15-41 [facility] Comment on above: Performed By: #### M G #### [address] [address] Bili Total 0.9 mg/dL Normal 0.3-1.2 [facility] Comment on above: Performed By: #### M G #### [address] [address] Calcium [Mass/Vol] 8.5 mg/dL Normal 8.5-10.3 [facility] Comment on above: Performed By: #### M G #### [address] [address] Chloride [Moles/Vol] 101 mmol/L Normal 98-110 [facility] Comment on above: Performed By: #### M G #### [address] [address] CO2 [Moles/Vol] 23 mmol/L Normal 22-32 [facility] Comment on above: Performed By: #### M G #### [address] [address] Creatinine [Mass/Vol] 0.79 mg/dL Normal 0.44-1.03 [facility] Comment on above: Performed By: #### M G #### [address] [address] Glucose [Mass/Vol] 119 mg/dL High 70-99 [facility] Comment on above: Performed By: #### M G #### [address] [address] Potassium [Moles/Vol] 4.2 mmol/L Normal 3.4-4.8 [facility] Comment on above: Performed By: #### M G #### [address] [address] Protein [Mass/Vol] 6.0 g/dL Low 6.5-8.1 [facility] Comment on above: Performed By: #### M G #### [address] [address] Sodium [Moles/Vol] 132 mmol/L Low 133-142 [facility] Comment on above: Performed By: #### M G #### [address] [address] Urea nitrogen [Mass/Vol] 16 mg/dL Normal 8-26 [facility] Comment on above: Performed By: #### M G #### [address] [address] Urea nitrogen/Creatinine [Mass ratio] 20.3 mg/mg High 10.0-20.0 [facility] Comment on above: Performed By: #### M G #### [address] [address] Diff Autoon 02-27-2024 Baso Absolute 0.0 x10*3/mcL Normal 0.0-0.2 [place] Comment on above: Performed By: #### M G #### [address] [address] Basophils/100 WBC (Bld) 0.3 % Normal 0.0-1.5 [facility] Comment on above: Performed By: #### M G #### [address] [address] Eos Absolute 0.0 x10*3/mcL Normal 0.0-0.4 [facility] Comment on above: Performed By: #### M G #### [address] [address] Eosinophils/100 WBC (Bld) 0.0 % Normal 0.0-5.4 [facility] Comment on above: Performed By: #### M G #### [address] [address] Lymph Absolute 0.9 x10*3/mcL Low 1.0-4.8 [facility] Comment on above: Performed By: #### M G #### [address] [address] Lymphocytes/100 WBC (Bld) 7.4 % Low 27.2-40.8 [facility] Comment on above: Performed By: #### M G #### [address] [address] [place] Absolute 0.9 x10*3/mcL Normal 0.1-1.1 [place] Comment on above: Performed By: #### M G #### [address] [address] Monocytes/100 WBC (Bld) 7.8 % Normal 3.7-11.9 [facility] Comment on above: Performed By: #### M G #### [address] [address] Neutro Absolute 9.9 x10*3/mcL High 1.8-7.7 [facility] Comment on above: Performed By: #### M G #### [address] [address] Neutro Auto 84.5 % High 47.2-70.8 [facility] Comment on above: Performed By: #### M G #### [address] [address] Magnesiumon 02-27-2024 Magnesium [Mass/Vol] 1.6 mg/dL Low 1.7-2.4 [facility] Comment on above: Performed By: #### M G #### [address] [address] Phosphoruson 02-27-2024 Phosphate [Mass/Vol] 3.8 mg/dL Normal 2.5-4.6 [facility] Comment on above: Performed By: #### M G #### [address] [address] Surgical Progress Noteon Surgical Progress Note Patient [...] function before discharge home Electronically signed by Iván Sapp MD 02/27/24 10:53 EDT Normal [facility] Operative Reporton 4 Operative Report Indication for Surgery Rectal prolapse Preoperative Diagnosis Same Postoperative Diagnosis Sigmoid colectomy with rectopexy Operation Rectopexy Robotic X/Xi Resection Sigmoid Colon Robotic X/Xi Surgeon(s) Eveline Ozuna MD, I (Surgeon - Primary) [employer] Consultant Nae Caputo PA-C (Firefighting Equipment Specialist) Anesthesia General Juan Miguel Negron DO (Refining Equipment Operator) Estimated Blood Loss 15 mL Urine Output [...] in the right upper quadrant as an computer lab assistant port. The patient was then placed [...] EEA stapler was then inserted by the computer lab assistant into the proximal anterior aspect of the rectal stump just distal to staple line to allow for performing the anastomosis anteriorly wh (more content not included)... Normal [facility] .eGFRon 02-16-2024 GFR/1.73 sq M.predicted MDRD (S/P/Bld) [Vol rate/Area] mL/min/{1.73_m2} Normal >=60 [facility] Comment on above: Order Comment: Order added by Discern rule Result Comment: [facility] have implemented the eGFR calculation [...] 1 Age = years Performed By: #### M G #### [address] [address] GFR/1.73 sq M.predicted MDRD (S/P/Bld) [Vol rate/Area] mL/min/{1.73_m2} Normal >=60 [facility] Comment on above: Order Comment: Order added by Discern Rule. Result Comment: [facility] have implemented the eGFR calculation [...] 1 Age = years Performed By: #### M G #### [facility] [address] [place] [address] ABO/Rhon 02-16-2024 ABO/Rh ABO/Rh: B POS Normal [facility] Comment on above: Performed By: #### A CHRISTINE #### [facility] (UNKNOWN) [address] [place] [address] ABSC Autoon 02-16-2024 ABSC Auto Negative Normal [facility] Comment on above: Performed By: #### A SA #### [facility] (UNKNOWN) [address] [place] [address] CBC w/ Diffon 02-16-2024 Erythrocyte distribution width (RBC) [Ratio] 13.0 % Normal 11.6-14.8 [facility] Comment on above: Performed By: #### M G #### [facility] [address] [place] [address] Hematocrit (Bld) [Volume fraction] 41.7 % Normal 36.0-46.0 [facility] Comment on above: Performed By: #### M G #### [address] [address] Hemoglobin (Bld) [Mass/Vol] 14.4 g/dL Normal 12.0-16.0 [facility] Comment on above: Performed By: #### M G #### [address] [address] MCH (RBC) [Entitic mass] 31.8 pg Normal 27.0-35.0 [facility] Comment on above: Performed By: #### M G #### [address] [address] MCHC 34.4 % Normal 31.0-37.0 [facility] Comment on above: Performed By: #### M G #### [address] [address] MCV (RBC) [Entitic vol] 92.5 fL Normal 80.0-100.0 [facility] Comment on above: Performed By: #### M G #### [address] [address] Platelet 378 x10*3/mcL Normal 150-450 [facility] Comment on above: Performed By: #### M G #### [address] [address] Platelet mean volume (Bld) [Entitic vol] 6.9 fL Low 7.5-11.5 [facility] Comment on above: Performed By: #### M G #### [address] [address] RBC 4.51 x10*6/mcL Normal 3.80-5.20 [facility] Comment on above: Performed By: #### M G #### [address] [address] WBC 7.4 x10*3/mcL Normal 4.5-11.0 [facility] Comment on above: Performed By: #### M G #### [facility] [address] [place] [address] CMPon 02-16-2024 Albumin [Mass/Vol] 4.6 g/dL Normal 3.7-5.3 [facility] Comment on above: Performed By: #### C OMP #### [place] [address] Albumin/Globulin [Mass ratio] 1.7 {ratio} Normal 1.1-2.2 [facility] Comment on above: Performed By: #### C OMP #### [place] [address] Alk Phos 80 IU/L Normal 34-104 [facility] Comment on above: Performed By: #### C OMP #### [place] [address] ALT [Catalytic activity/Vol] 12 U/L Normal 7-52 [facility] Comment on above: Performed By: #### C OMP #### [place] [address] Anion gap [Moles/Vol] 4 mmol/L Normal 4-12 [facility] Comment on above: Performed By: #### C OMP #### [place] [address] AST [Catalytic activity/Vol] 17 U/L Normal 13-39 [facility] Comment on above: Performed By: #### C OMP #### [place] [address] Bili Total 0.5 mg/dL Normal 0.3-1.0 [facility] Comment on above: Performed By: #### C OMP #### [place] [address] Calcium [Mass/Vol] 9.9 mg/dL Normal 8.6-10.3 [facility] Comment on above: Performed By: #### C OMP #### [place] [address] Chloride 103 IU/L Normal 98-107 [facility] Comment on above: Performed By: #### C OMP #### [address] [address] CO2 [Moles/Vol] 31 mmol/L Normal 21-31 [facility] Comment on above: Performed By: #### C OMP #### [address] [address] Creatinine [Mass/Vol] 0.59 mg/dL Low 0.60-1.20 [facility] Comment on above: Performed By: #### C OMP #### [place] [address] Glucose [Mass/Vol] 90 mg/dL Normal 70-99 [facility] Comment on above: Performed By: #### C OMP #### [place] [address] Potassium [Moles/Vol] 4.3 mmol/L Normal 3.4-4.8 [facility] Comment on above: Performed By: #### C OMP #### [place] [address] Protein [Mass/Vol] 7.3 g/dL Normal 6.0-8.3 [facility] Comment on above: Performed By: #### C OMP #### [place] [address] Sodium [Moles/Vol] 138 mmol/L Normal 136-145 [facility] Comment on above: Performed By: #### C OMP #### [address] [address] Urea nitrogen [Mass/Vol] 10 mg/dL Normal 7-25 [facility] Comment on above: Performed By: #### C OMP #### [id number] Urea nitrogen/Creatinine [Mass ratio] 16.9 mg/mg Normal 10.0-20.0 [facility] Comment on above: Performed By: #### C OMP #### [address] [address] [address] Abdomen Pelvis w/ IV Cont [facility] 02-16-2024 CT Abdomen Pelvis w/ IV Contrast [...] extend through the anus. Radiation Dose Estimate: CTDI(mGy):0.186533 / / / kVp:100.711970 / mAs:0.534350 / / / DLP(mGy-cm):0.040515 Body Part: Abdomen CTDI(mGy):4.838954 / / / kVp:80.388254 / mAs:128.491163 / / / DLP(mGy-cm):192.0000 00Body Part: Abdomen Final Dictated by: Irma Estevez MD Dictated DT/TM: 02.16.2024 3:59 pm Signed by: Irma Estevez MD Signed (Electronic Signature): 02.16.2024 4:12 pm (If Report Is Signed, Electronically Signed in Other Vendor System) Normal [facility] Comment on above: Order Comment: tatiana khan order signed 02/04/24 - joe baxter in [employer] Diff Autoon 02-16-2024 Baso Absolute 0.1 x10*3/mcL Normal 0.0-0.2 [place] Comment on above: Performed By: #### M G #### [address] [address] Basophils/100 WBC (Bld) 1.1 % Normal 0.0-1.5 [facility] [facility] Comment on above: Performed By: #### M G #### [address] [address] Eos Absolute 0.1 x10*3/mcL Normal 0.0-0.4 [facility] Comment on above: Performed By: #### M G #### [address] [address] Eosinophils/100 WBC (Bld) 1.4 % Normal 0.0-5.4 [facility] Comment on above: Performed By: #### M G #### [address] [address] Lymph Absolute 2.0 x10*3/mcL Normal 1.0-4.8 [facility] Comment on above: Performed By: #### M G #### [address] [address] Lymphocytes/100 WBC (Bld) 26.9 % Low 27.2-40.8 [facility] Comment on above: Performed By: #### M G #### [address] [address] [place] Absolute 0.5 x10*3/mcL Normal 0.1-1.1 [place] Comment on above: Performed By: #### M G #### [address] [address] Monocytes/100 WBC (Bld) 6.9 % Normal 3.7-11.9 [facility] Comment on above: Performed By: #### M G #### [address] [address] Neutro Absolute 4.7 x10*3/mcL Normal 1.8-7.7 [facility] Comment on above: Performed By: #### M G #### [address] [address] Neutro Auto 63.7 % Normal 47.2-70.8 [facility] Comment on above: Performed By: #### M G #### [facility] [address] [place] [address] POC Creatinine Von POC Crea iStat Venous 0.6 mg/dL Normal 0.6-1.3 [facility] Comment on above: Performed By: #### M G #### [facility] [address] [place] [address] Surgery Office/Clinic Noteon 02-04-2024 Surgery Office/Clinic Note Chief Complaint Rectal protrusion History of Present Illness 63 year old female, referred by Dr. Amanda ([facility]), patient of Colin Sarah Patient is here with c/o protrusion from the rectum that has been an ongoing issue for many years, but worsening lately. States it is becoming more difficult to reduce. She denies constipation or straining and bleeding. Last colonoscopy 01-14-2023 in [place], diverticulosis and tubular adenoma x2. The patient [...] (01/14/2023) Medicatio (more content not included)... Normal [facility] COMPREHENSIVE METABOLIC PANE Ish 09-01-2023 Albumin [Mass/Vol] 4.5 g/dL Normal 3.2-5.[address] [facility] Comment on above: Performed By: #### Huseyin BARBOZA 40339-0 #### [facility] ([id number]) [address], [address] [place] [address] ALP [Catalytic activity/Vol] 73 U/L Normal 39-130 [facility] Comment on above: Performed By: #### Huseyin BARBOZA 18529-0 #### [facility] ([id number]) [address], [address] [place] [address] ALT [Catalytic activity/Vol] 21 U/L Normal 0-31 [facility] Comment on above: Performed By: #### Huseyin BARBOZA 68022-9 #### [facility] ([id number]) [address], [address] [place] [address] Anion gap [Moles/Vol] 8 mmol/L Normal 5-15 [facility] Comment on above: Performed By: #### Huseyin BARBOZA 62232-8 #### [facility] ([id number]) [address], [address] [place] [address] AST [Catalytic activity/Vol] 24 U/L Normal 0-41 [facility] Comment on above: Performed By: #### Huseyin BARBOZA 85033-0 #### [facility] ([id number]) [address], [address] [place] [address] Bilirubin [Mass/Vol] 0.3 mg/dL Normal 0.3-1.2 [facility] Comment on above: Performed By: #### Huseyin BARBOZA, 12314-7 #### [facility] ([id number]) [address], [address] [place] [address] Calcium [Mass/Vol] 9.4 mg/dL Normal 8.5-10.[address] [facility] Comment on above: Performed By: #### Huseyin BARBOZA, 57339-0 #### [facility] ([id number]) [address], [address] [place] [address] Chloride [Moles/Vol] 102 mmol/L Normal 98-109 [facility] Comment on above: Performed By: #### Huseyin BARBOZA, 60968-3 #### [facility] ([id number]) [address], [address] [place] [address] CO2 [Moles/Vol] 30 mmol/L Normal 22-32 [facility] Comment on above: Performed By: #### Huseyin BARBOZA, 12462-4 #### [facility] ([id number]) [address], [address] [place] [address] Creatinine [Mass/Vol] 0.58 mg/dL Normal 0.40-1.00 [facility] Comment on above: Result Comment: METH OD TRACEABLE TO IDMS STANDARD Performed By: #### Huseyin BARBOZA, 75369-6 #### [facility] ([id number]) [address], [address] [place] [address] eGFR (CKD-EPI) NON-RACE DEPENDENT >90 Normal >59 [facility] Comment on above: Result Comment: Reported eGFR is based on the CKD-EPI 2020 equation that does not use a race coefficient. Performed By: #### Huseyin BARBOZA, 44254-8 #### [facility] ([id number]) [address] [place] [address] Glucose [Mass/Vol] 98 mg/dL Normal 65-[address] [facility] Comment on above: Performed By: #### Huseyin BARBOZA, 00396-6 #### [facility] ([id number]) [address], [address] [place] [address] Potassium [Moles/Vol] 4.5 mmol/L Normal 3.5-5.0 [facility] Comment on above: Performed By: #### Huseyin BARBOZA, 09597-8 #### [facility] ([id number]) [address], [address] [place] [address] Protein [Mass/Vol] 6.9 g/dL Normal 6.0-8.[address] [facility] Comment on above: Performed By: #### Huseyin BARBOZA, 03206-5 #### [facility] ([id number]) [address], [address] [place] [address] Sodium [Moles/Vol] 140 mmol/L Normal 134-[address] [facility] Comment on above: Performed By: #### Huseyin BARBOZA, 20093-5 #### [facility] ([id number]) [address], [address] [place] [address] Urea nitrogen [Mass/Vol] 12 mg/dL Normal 5-27 [facility] Comment on above: Performed By: #### Huseyin BARBOZA, 85444-7 #### [facility] ([id number]) [address], [address] [place] [address] Lipid 1996 panelon 4 Cholesterol [Mass/Vol] 191 mg/dL Normal 150-200 [facility] Comment on above: Performed By: #### Huseyin BARBOZA, 83824-0 #### [facility] ([id number]) [address], [address] [place] [address] Cholesterol in HDL [Mass/Vol] 54 mg/dL Normal >39 [facility] Comment on above: Result Comment: HDL <40 mg/dL - High Risk HDL > or = 40mg/dL- Desirable HDL >60 mg/dL - Negative Risk Performed By: #### Huseyin BARBOZA, 40177-4 #### [facility] ([id number]) [address], [address] [place] [address] Cholesterol in LDL [Mass/Vol] 111 mg/dL Normal <130 [facility] Comment on above: Result Comment: LDL <100 mg/dL - Desirable LDL >160 mg/dL - High Risk Performed By: #### Huseyin BARBOZA, 37575-1 #### [facility] ([id number]) [address], [address] [place] [address] Cholesterol in VLDL [Mass/Vol] 26 mg/dL Normal 0-30 [facility] Comment on above: Performed By: #### Huseyin BARBOZA, 21841-7 #### [facility] ([id number]) [address], [address] [place] [address] CHOLESTEROL:HDL 3.5 Normal 1.0-5.0 [facility] Comment on above: Performed By: #### Huseyin BARBOZA, 61695-3 #### [facility] ([id number]) [address], [address] [place] [address] Triglyceride [Mass/Vol] 130 mg/dL Normal 27-150 [facility] Comment on above: Performed By: #### Huseyin BARBOZA, 96605-4 #### [facility] ([id number]) [address], [address] [place] [address] POCT EKGOrdered By: Cami Fine per on 06-15-2023 [facility] Outside Colonoscopyon 2022 Outside Colonoscopy [id number]#1.00CD:127 Normal [facility] Pathology Noteon 01-21-2023 Pathology Note [id number] #1.00CD:127 [facility] Reminderson 01-21-2023 Reminders - From: Elisa Patel LPN To: N - Clinical; Sent: 01/21/2023 10:07:40 EDT Show up: 12/15/2027 07:00:00 EDT Subject: colonoscopy recall Due Date/Time: 01/15/2028 07:00:00 EDT Reminder/Recall Patient due for surveillance colonoscopy 01/15/2028. Normal [facility] Insurance Correspondenceon 0 12-26-2022 Insurance Correspondence [id number] 7#1.00CD:127 [facility] Consent for Procedure/Surger yon 12-17-2022 Consent for Procedure/Surgery [id number] #1.00CD:127 [facility] Facesheeton 12-17-2022 Facesheet [id number] #1.00CD:127 [facility] Ambulatory Visit Summaryon 0 12-16-2022 Ambulatory Visit Summary SEBASTIANPETRONA Bojorquez Kinga :1960 Visit Date:12/16/2022 Ambulatory Visit Instructions Your [...] Screening for malignant neoplasm of colon Normal [facility] Physician Referralon 023 Physician Referral [id number] #1.00CD:127 Normal [facility] CT LUNG CANCER SCREENINGon 0 09-29-2022 CT [...] by: GABRIEL ROBERTSON Date: 2022-09-29 17:03 Normal [facility] COVID + FLU Quick Testingon 05-31-2022 SARS-CoV-2 (COVID-19) RNA MILAN+probe Ql (Unsp spec) Negative [facility] [employer] Other COVID + FLU Quick Testing Negative [facility] [employer] Other XR chest 2V*on 05-31-2022 XR chest 2V* [facility] [address] [place] [address] XRay Report Signed Patient: Petrona Angeles MR#: [id number] : 1960 Acct:[id number] Age/Sex: 61 / F ADM Date: 05/31/22 Loc: [facility] Room: Type: [facility] Attending Dr: Janice MORELOS Copies to: JETHRO [...] Keyonna Head M.D.05/31/2022 1:14 PM Dictation Location: [place] [address] Transcribed By: [facility] 05/31/22 1314 Dictated By: Keyonna Head MD 05/31/22 1313 Signed By: 05/31/22 1314 Normal [facility] XR chest 2V* [facility] [employer] Other XR chest 2V* [facility] [employer] Other XR chest 2V* [address] [facility] [employer] Other XR chest 2V* [place] [address] [employer] Other XR chest 2V* XRay Report [facility] Other XR chest 2V* Signed [facility] Other XR chest 2V* Patient: Petrona Angeles MR#: [id number] [facility] Other XR chest 2V* [id number] [facility] Other XR chest 2V* : 1960 Acct:[id number] [facility] Other XR chest 2V* Age/Sex: 61 / F ADM Date: 05/31/22 [facility] Other XR chest 2V* Loc: [facility] Room: Type: [facility] Other XR chest 2V* Attending Dr: Janice MORELOS [facility] Other XR chest 2V* Copies to: JETHRO Robles [facility] Other XR chest 2V* Ordering Provider: JETHRO Robles [facility] Other XR chest 2V* Date of Service: 05/31/22 [facility] Other XR chest 2V* XR/XR chest 2V*: COUGH [facility] Other XR chest 2V* PA AND LATERAL CHEST: [facility] Other XR chest 2V* CLINICAL HISTORY: Chest tightness on the right and productive cough [facility] Other XR chest 2V* COMPARISON: None [facility] Other XR chest 2V* The lungs are hyperinflated. There are minor chronic changes. There is no focal parenchymal [facility] Other XR chest 2V* consolidation, effusion or pneumothorax. The cardiac, hilar and mediastinal silhouettes are within [facility] Other XR chest 2V* normal limits. There is no vascular congestion. The visualized bony thorax is intact. Endplate [facility] Other XR chest 2V* spurring is present. No rt [employer] Other XR chest 2V* XR/XR chest 2V* [place] [employer] Other XR chest 2V* IMPRESSION: [facility] Other XR chest 2V* OBSTRUCTIVE LUNG DISEASE. [facility] Other XR chest 2V* NO ACUTE CARDIOPULMONARY ABNORMALITY. [facility] Other XR chest 2V* Impression dictated by: Keyonna Head M.D.05/31/2022 1:14 PM [place] [employer] Other XR chest 2V* Dictation Location: [place] [address] [facility] Other XR chest 2V* Transcribed By: LAUREEN 05/31/22 [facility] Other XR chest 2V* Dictated By: Keyonna Head MD 05/31/22 [facility] Other XR chest 2V* Signed By: [facility] Other XR chest 2V* 05/31/22 [facility] [employer] [facility] [employer] Other COVID Quick Testingon 2021 Result Positive [facility] Other XR CSPINE 2_3 VIEWSon 2021 XR [...] paraspinous abnormality is seen. OTHER: Negative. 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 Electronically authenticated by: LOLIS CALLAWAY Date: 2021-10-14 07:09 Normal [facility] COVID Quick Testingon 2020 Result Negative [place] [employer] Other Vital Signs Date Time Vital Sign Value Performing Clinician Facility 07-31-2023 10:55-0500 Body height 160 cm [employer] [facility] 07-31-2023 10:55-0500 Body mass index (BMI) [Ratio] 23.38 kg/m2 [employer] DO [facility] 07-31-2023 10:55-0500 Body temperature 97.9 [degF] [employer] DO [facility] 07-31-2023 10:55-0500 Body weight 59.88 kg [employer] DO [facility] Phone[facility] 07-31-2023 10:55-0500 Diastolic blood pressure 70 mm[Hg] [employer] DO [facility] Phone[facility] 07-31-2023 10:55-0500 Heart rate 100 /min [employer] DO [facility] 07-31-2023 10:55-0500 SaO2% (BldA) [Mass fraction] 95 % [employer] DO Work Phone: [facility] 07-31-2023 10:55-0500 Systolic blood pressure 120 mm[Hg] [employer] [facility] 06-15-2023 15:31-0500 Body height 160 cm Anais Muñoz APRNMaishaFIRMWARE ARCHITECT Work Phone: [employer] 06-15-2023 15:31-0500 Body mass index (BMI) [Ratio] 24.13 kg/m2 Anais Muñoz APRN-FIRMWARE ARCHITECT Work Phone: [employer] 06-15-2023 15:31-0500 Body temperature 97.81 [degF] Anais Muñoz APRN-FIRMWARE ARCHITECT [facility] 06-15-2023 15:31-0500 Body weight 61.78 kg Anais MORANFIRMWARE ARCHITECT Work Phone: [facility] 06-15-2023 15:31-0500 Diastolic blood pressure 60 mm[Hg] Anais Muñoz APRN-FIRMWARE ARCHITECT Work [facility]: [facility] 06-15-2023 15:31-0500 Heart rate 81 /min Anais MORANFIRMWARE ARCHITECT [facility] 06-15-2023 15:31-0500 SaO2% (BldA) [Mass fraction] 94 % Anais Muñoz APRNMaishaFIRMWARE ARCHITECT Work Phone: [employer] 06-15-2023 15:31-0500 Systolic blood pressure 110 mm[Hg] Anais Muñoz APRNMaishaFIRMWARE ARCHITECT Work Phone: [employer] 05-31-2022 13:30-0500 Body height 160.02 cm Janice Rahman Other [facility] Other 05-31-2022 13:30-0500 Body mass index (BMI) [Ratio] 26.04 kg/m2 Janice Rahman Other [facility] Other 05-31-2022 13:30-0500 Body temperature 97.8 [degF] Janice Rahman Other [facility] Other 05-31-2022 13:30-0500 Body weight 66.68 kg Janice Lacey Other [facility] Other 05-31-2022 13:30-0500 Diastolic blood pressure 74 mm[Hg] Janice Lacey Other [facility] Other 05-31-2022 13:30-0500 Respiratory rate 18 /min Janice Lacey Other [facility] Other 05-31-2022 13:30-0500 SaO2% (BldA) [Mass fraction] 98 % Janice Lacey Other [facility] Other 05-31-2022 13:30-0500 Systolic blood pressure 118 mm[Hg] Janice Lacey Other [facility] Other 11-30-2021 15:35-0400 Body height 160.02 cm Janice Lacey Other [facility] Other 11-30-2021 15:35-0400 Body mass index (BMI) [Ratio] 25.68 kg/m2 Janice Lacey Other [facility] Other 11-30-2021 15:35-0400 Body temperature 97.7 [degF] Janice Lacey Other [facility] Other 11-30-2021 15:35-0400 Body weight 65.77 kg Janice Lacey Other [facility] Other 11-30-2021 15:35-0400 Respiratory rate 18 /min Janice Lacey Other [facility] Other 11-30-2021 15:350400 SaO2% (BldA) [Mass fraction] 96 % Janice Rahman Other [facility] Other Encounters Encounter Date Encounter Type Care Provider Facility Start: 03-02-2024 ambulatory Eveline Ozuna MD Facility :[facility] - 3 Start: 02-26-2024 End: 02-28-2024 Evaluation and management of inpatient Eveline Ozuna MD Facility:[facility] Start: 02-24-2024 End: 02-24-2024 Orders Only Rohith G [place] DO Work Phone: [facility] Comment on above: Lung nodule, solitar y (Primary Dx) Start: 02-22-2024 End: 02-22-2024 ambulatory [facility] Start: 02-18-2024 End: 02-18-2024 ambulatory Eveline Ozuna MD Facility:[facility] Start: 02-16-2024 End: 02-16-2024 ambulatory Eveline Ozuna MD Facility:[facility] Start: 02-09-2024 End: 02-09-2024 ambulatory Eveline Ozuna MD Facility:[facility] 3 Start: 02-04-2024 End: 02-04-2024 ambulatory Eveline Ozuna MD Facility:[facility] 3 Start: 09-01-2023 End: 09-02-2023 ambulatory [facility] Start: 09-01-2023 Encounter for genera l adult medical examination without abnormal findings [facility] Start: 09-01-2023 End: 09-01-2023 ambulatory [facility] Start: 09-01-2023 Encounter for genera l adult medical examination without abnormal findings [facility] Start: 08-07-2023 Orders Only Anais Muñoz QUALITY INSPECTOR-FIRMWARE ARCHITECT Work Phone: [facility] Comment on above: Rib pain on right si de (Primary Dx) Start: 07-31-2023 End: 07-31-2023 Office outpatient visit 15 minutes Rohith Mario Lakeedwardo DO Work Phone: [facility] Comment on above: Acute pain of left s houlder (Primary Dx) Start: 07-31-2023 End: 07-31-2023 ambulatory ROHITH [facility] Start: 07-17-2023 End: 07-18-2023 ambulatory [facility] Start: 07-01-2023 Orders Only Anais Muñoz QUALITY INSPECTOR-FIRMWARE ARCHITECT Work Phone: [facility] Comment on above: Other chest pain (Pr imary Dx); Ventricular premature depolarization Start: 06-29-2023 End: 06-30-2023 ambulatory [facility] Start: 06-17-2023 Orders Only Anais Muñoz QUALITY INSPECTOR-FIRMWARE ARCHITECT Work Phone: [facility] Comment on above: Acute chest wall erwin n (Primary Dx) Other chest pain (Pr imary Dx) Start: 06-15-2023 End: 06-15-2023 Office outpatient visit 15 minutes Anais Muñoz QUALITY INSPECTOR-FIRMWARE ARCHITECT Work Phone: [facility] Comment on above: Acute chest wall erwin n (Primary Dx) Start: 06-15-2023 End: 06-15-2023 ambulatory [facility] Start: 05-30-2023 Refill Rohith Kim rox DO Work Phone: [facility] Comment on above: Mixed hyperlipidemia Start: 01-14-2023 End: 01-15-2023 ambulatory Rohit YEH Facility:CD:[id number] Start: 12-16-2022 End: 12-17-2022 ambulatory ROHITH ARCHER Facility: [facility] Start: 11-27-2022 ambulatory ROHITHGELA ARCHER Facility :[facility] Start: 09-29-2022 End: 09-30-[address] ROHIHT ARCHER Facility: Start: 05-31-2022 End: 05-31-2022 ambulatory Janice Rahman Facility:[facility] Start: 05-31-2022 Office outpatient vi sit 25 minutes Janice Lacey [facility] Start: 05-31-2022 End: 05-31-2022 ambulatory DO Rohith Lakelong Work Phone: [facility] Work Phone: Start: 05-31-2022 End: 05-31-2022 Patient encounter procedure DO Rohith Kimng Work Phone: [facility] Work Phone: Start: 11-30-2021 End: 11-30-2021 ambulatory Janice Rahman Other [facility] Other Start: 11-30-2021 Office outpatient vi sit 15 minutes Janice Lacey [facility] Start: 10-12-2021 End: 10-13-[address] ROHITH ARCHER Facility: Start: 04-17-2021 End: 04-17-2021 ambulatory Janice Lacey Other [facility] Other Start: 04-17-2021 Office outpatient vi sit 5 minutes Janice Lacey [facility] Procedures Date Procedure Procedure Detail Performing Clinician Start: 02-22-2024 Adult depression scr eening assessment Rohith Furlong DO Work Phone: Start: 10-06-2023 Mammography Rohith Fur long DO Work Phone: Start: 07-31-2023 Adult depression scr eening assessment Rohith Furlong DO Work Phone: Start: 06-15-2023 Ecg routine ecg w/le ast 12 lds w/i&r Anais Muñoz QUALITY INSPECTOR-FIRMWARE ARCHITECT Work Phone: Start: 06-15-2023 Adult depression scr eening assessment Anais Muñoz QUALITY INSPECTOR-FIRMWARE ARCHITECT Work Phone: Start: 01-14-2023 Colonoscopy Rohith Lake long DO Work Phone: Start: 12-08-2022 Adult depression scr eening assessment Rohith Archer DO Work Phone: Start: 05-31-2022 Plain chest X-ray DO De nnis Furlong Work Phone: Plan of Treatment Date Care Activity Detail Author Start: 01-14-2033 Screening for malign ant neoplasm of colon Colonoscopy [facility] Start: 03-22-2029 DTaP,Tdap and Td Vaccines (2 - Td or Tdap) DTaP,Tdap and Td Vaccines (2 - Td or Tdap) [facility] Start: 02-21-2025 Adult BMI Screening Adult BMI Screen ing [facility] Start: 02-21-2025 Depression Screening Depression Scre ening [facility] Start: 02-21-2025 Tobacco Screening Tobacco Screening [facility] Start: 10-05-2024 Screening for malign ant neoplasm of breast Mammogram [facility] Start: 07-30-2024 Adult BMI Screening Adult BMI Screen ing [facility] Start: 07-30-2024 Depression Screening Depression Scre ening [facility] Start: 07-30-2024 Tobacco Screening Tobacco Screening [facility] Start: 06-29-2024 Adult BMI Screening Adult BMI Screen ing [facility] Start: 06-15-2024 Adult BMI Screening Adult BMI Screen ing [facility] Start: 06-15-2024 Depression Screening Depression Scre ening [facility] Start: 06-15-2024 Tobacco Screening Tobacco Screening [facility] Start: 05-25-2024 Administration of varicella zoster vaccine Zoster (Shingles) Vaccine (1 of 2) [facility] Comment on above: Postponed from 11/16 (Patient Refused) Start: 02-24-2024 End: 02-23-2025 CT Chest limited W contrast IV CT chest with contrast Imaging Routine Lung nodule, solitary Expected: 02/24/2024, Expires: 02/23/2025 [employer] Work Phone: Comment on above: Expected: 02/24/2024 , Expires: 02/23/2025 Start: 01-24-2024 COVID-19 Vaccine ( season) COVID-19 Vaccine () [facility] Start: 01-24-2024 Influenza vaccination Influenza Vacc ine [facility] Start: 12-09-2023 Adult BMI Screening Adult BMI Screen ing [facility] Start: 12-09-2023 Depression Screening Depression Scre ening [facility] Start: 12-09-2023 Tobacco Screening Tobacco Screening [facility] Start: 09-01-2023 End: 09-01-2023 Patient encounter procedure 09/01/2023 3:30 PM EDT [facility] [address] [place] [address] Rohith Archer, [address] [facility], [place] [address] [facility] Start: 07-31-2023 End: 07-30-2024 XR Shoulder - left 2 Views X-ray shoulder left minimum 2 views Imaging Routine Acute pain of left shoulder Expected: 07/31/2023, Expires: 07/30/2024 [employer] [employer] Work Phone: Comment on above: Expected: 07/31/2023 , Expires: 07/30/2024 Start: 07-01-2023 End: 07-01-2024 Echo stress treadmill W/O contrast Echo stress treadmill W/O contrast Cardiac Services Routine Other chest pain Ventricular premature depolarization Expected: 07/01/2023, Expires: 07/01/[address] [employer] Work Phone: Comment on above: Expected: 07/01/2023 , Expires: 07/01/2024 Start: 06-17-2023 End: 06-17-2024 Exercise stress test study Stress test (exercise only) Cardiac Services Routine Other chest pain Expected: 06/17/2023, Expires: 06/17/2024 [facility] Work Phone: Comment on above: Expected: 06/17/2023 , Expires: 06/17/2024 Start: 06-15-2023 End: 06-15-2024 XR Ribs - left Views and Chest PA X-ray ribs left 3 views with pa chest Imaging Routine Acute chest wall pain Expected: 06/15/2023, Expires: 06/15/2024 [facility] Work Phone: Comment on above: Expected: 06/15/2023 , Expires: 06/15/2024 Start: 01-23-2023 COVID-19 Vaccine ( season) COVID-19 Vaccine ( season) [facility] Start: 01-23-2023 Influenza vaccination Influenza Vacc ine [facility] Start: 2010 Administration of varicella zoster vaccine Zoster (Shingles) Vaccine (1 of 2) [facility] Start: 1981 Screening for malign ant neoplasm of cervix Pap Smear [facility] End: 02-23-2025 Creatinine includes GFR, serum Creatinine includes GFR, serum Lab Routine Lung nodule, solitary 1 Occurrences starting 02/24/2024 until 02/23/2025 [facility] Comment on above: 1 Occurrences starti ng 02/24/2024 until 02/23/2025 Immunizations Immunization Date Immunization Notes Care Provider Greg marquez 03-22-2019 Influenza, injectabl e, Madin Ralston Canine Kidney, quadrivalent with preservative Rohith Furlong DO Work Phone: [facility] 03-22-2019 tetanus toxoid, redu jenn diphtheria toxoid, and acellular pertussis vaccine, adsorbed Rohith Furlong DO Work Phone: [facility] 03-22-2019 influenza virus vaccine, unspecified formulation Rohith Furlong DO Work Phone: [facility] Payers Date Payer Category Payer Self-pay [id number] 2016 Private Health Insurance [id number] 1960 Unknown [id number] 2.16.84 0.1.745003.3.579.2.593 1960 Unknown [id number] 2.16.84 0.1.229655.3.579.2.593 1960 Unknown [id number] 2.16.8 40.1.666591.3.579.2.727 1960 Unknown [id number] 2.16.8 40.1.762232.3.579.2.727 1960 Unknown [id number] 2.16.8 40.1.332691.3.579.2.1286 1960 Unknown [id number] 2.16.8 40.1.645613.3.579.2.1286 1960 Unknown [id number] 2.16.8 40.1.101785.3.579.2.1286 1960 Unknown [id number] 2.16.8 40.1.495748.3.579.2.1286 1960 Unknown [id number] 2.16.8 40.1.155042.3.579.2.1286 1960 Unknown [id number] 2.16.8 40.1.023766.3.579.2.1286 1960 Unknown [id number] 2.16.84 0.1.437635.3.579.2.1286 1960 Unknown [id number] 2.16. 840.1.805937.3.579.2.196 1960 Unknown [id number] 2.16. 840.1.272918.3.579.2.196 1960 Unknown [id number] 2.16. 840.1.722277.3.579.2.196 1960 Unknown [id number] 2.16. 840.1.526343.3.579.2.196 1960 Unknown [id number] 2.16. 840.1.242129.3.579.2.196 1960 Unknown [id number] 2.16. 840.1.274997.3.579.2.196 1960 Unknown [id number] 2.16. 840.1.237964.3.579.2.196 1960 Unknown [id number] 2.16. 840.1.664546.3.579.2.196 1960 Unknown [id number] 2.16. 840.1.004061.3.579.2.196 1959 Private Health Insurance [id number] Private Health Insurance [id number] [id number] Unknown [id number] 2.16.8 40.1.898485.3.579.2.531 Social History Date Type Detail Facility Unknown if ever smoked [facility] [employer] Other Start: 08-25-2022 End: 09-01-2023 Sex Assigned At [employer] Other Start: 1960 Sex Assigned At Female [facility] Start: 08-25-2022 End: 02-22-2024 Tobacco smoking status NHIS Ex-smoker [facility] [employer] Start: 11-17-1973 End: 11-28-2020 History of tobacco use [facility] Start: 11-17-1973 End: 11-28-2020 History of tobacco use Cigarette Smoker [facility] [employer] [facility] Start: 08-25-2022 End: 09-01-2023 Cigarettes smoked current (pack per day) - Reported 1 [facility] Start: 08-25-2022 End: 02-22-2024 Tobacco use and exposure Smokeless tobacco non-user [facility] Start: 01-22-2023 End: 02-24-2024 Alcohol intake Lifetime non-drinker (finding) [facility] Do you belong to any clubs or organizations such as samaritan groups, unions, fraternal or athletic groups, or school groups? No [facility] Are you now , , , , never or living with a partner? Never [facility] How often to you hav e a drink containing alcohol? Never [facility] How many standard dr inks containing alcohol do you have on a typical day? Patient does not drink [facility] Do you feel stress - tense, restless, nervous, or anxious, or unable to sleep at night because your mind is troubled all the time - these days [OSQ] Only a little [facility] Start: 1960 Sex Assigned At Not on file [facility] [employer] [facility] Clinical Notes 04-17-2021 to 02-29-2024 Jany Kuns, QUALITY INSPECTOR-[facility] - 08/07/2023 12:21 PM EDTRohith Archer, DO - 07/31/2023 10:45 AM Rebecca Muñoz, QUALITY INSPECTOR-FIRMWARE ARCHITECT - 06/15/2023 3:20 PM EST Note Date & Type Note Facility 02-29-2024 Note Subjective Patient feels well had gas and bowel movement Objective Vitals & Measurements T: 37.1 ?C (Oral) HR: 84 (Peripheral) RR: 16 BP: 142/95 SpO2: 91% HT: 160 cm HT: 160 cm WT: 63.7 kg BMI: 24.92 BMI: 24.92 Additional Vitals No qualifying data available. Physical Exam Soft abdomen Outcome of Hospitalization Discharge home Lab Results Test Name Test Result Date/Time WBC 8.4 x10 WBC 11.7 x10 RBC 3.95 x10 RBC 4.01 x10 Hgb 12.2 g/dL 02/28/2024 04:54 EDT Hgb 12.6 g/dL 02/27/2024 04:54 EDT Hct 36.8 % 02/28/2024 04:54 EDT Hct 36.9 % 02/27/2024 04:54 EDT MCV 93.3 fL 02/28/2024 04:54 EDT MCV 92.0 fL 02/27/2024 04:54 EDT MCH 30.8 pg 02/28/2024 04:54 EDT MCH 31.4 pg 02/27/2024 04:54 EDT MCHC 33.0 % 02/28/2024 04:54 EDT MCHC 34.1 % 02/27/2024 04:54 EDT RDW 13.3 % 02/28/2024 04:54 EDT RDW 12.8 % 02/27/2024 04:54 EDT Platelet 296 x10 Platelet 329 x10 Mean Platelet Volume 7.8 fL 02/28/2024 04:54 EDT Mean Platelet Volume 7.9 fL 02/27/2024 04:54 EDT Neutro Auto 62.8 % 02/28/2024 04:54 EDT Neutro Auto 84.5 % (High) 02/27/2024 04:54 EDT Lymph Auto 26.1 % (Low) 02/28/2024 04:54 EDT Lymph Auto 7.4 % (Low) 02/27/2024 04:54 EDT [place] Auto 9.5 % 02/28/2024 04:54 EDT [place] Auto 7.8 % 02/27/2024 04:54 EDT Eos Auto 0.8 % 02/28/2024 04:54 EDT Eos Auto 0.0 % 02/27/2024 04:54 EDT Basophil Auto 0.8 % 02/28/2024 04:54 EDT Basophil Auto 0.3 % 02/27/2024 04:54 EDT Neutro Absolute 5.3 x10 Neutro Absolute 9.9 x10 Lymph Absolute 2.2 x10 Lymph Absolute 0.9 x10 [place] Absolute 0.8 x10 [place] Absolute 0.9 x10 Eos Absolute 0.1 x10 Eos Absolute 0.0 x10 Baso Absolute 0.1 x10 Baso Absolute 0.0 x10 Sodium Lvl 139 mmol/L 02/28/2024 04:54 EDT Sodium Lvl 132 mmol/L (Low) 02/27/2024 04:54 EDT Potassium Lvl 4.3 mmol/L 02/28/2024 04:54 EDT Potassium Lvl 4.2 mmol/L 02/27/2024 04:54 EDT Chloride 100 mmol/L 02/28/2024 04:54 EDT Chloride 101 mmol/L 02/27/2024 04:54 EDT CO2 29 mmol/L 02/28/2024 04:54 EDT CO2 23 mmol/L 02/27/2024 04:54 EDT Anion Gap 10 02/28/2024 04:54 EDT Anion Gap 8 02/27/2024 04:54 EDT Glucose Lvl 108 mg/dL (High) 02/28/2024 04:54 EDT Glucose Lvl 119 mg/dL (High) 02/27/2024 04:54 EDT BUN 11 mg/dL 02/28/2024 04:54 EDT BUN 16 mg/dL 02/27/2024 04:54 EDT Creatinine Lvl 0.85 mg/dL 02/28/2024 04:54 EDT Creatinine Lvl 0.79 mg/dL 02/27/2024 04:54 EDT Estimated GFR >60 mL/min/1.73m? 02/28/2024 04:54 EDT Estimated GFR >60 mL/min/1.73m? 02/27/2024 04:54 EDT BUN Crea Ratio 12.9 02/28/2024 04:54 EDT BUN Crea Ratio 20.3 (High) 02/27/2024 04:54 EDT Bili Total 0.5 mg/dL 02/28/2024 04:54 EDT Bili Total 0.9 mg/dL 02/27/2024 04:54 EDT Alk Phos 54 IU/L 02/28/2024 04:54 EDT Alk Phos 62 IU/L 02/27/2024 04:54 EDT AST 25 IU/L 02/28/2024 04:54 EDT AST 19 IU/L 02/27/2024 04:54 EDT ALT 24 IU/L 02/28/2024 04:54 EDT ALT 15 IU/L 02/27/2024 04:54 EDT Total Protein 6.0 g/dL (Low) 02/28/2024 04:54 EDT Total Protein 6.0 g/dL (Low) 02/27/2024 04:54 EDT Albumin Lvl 3.4 g/dL 02/28/2024 04:54 EDT Albumin Lvl 3.3 g/dL 02/27/2024 04:54 EDT AG Ratio 1.3 02/28/2024 04:54 EDT AG Ratio 1.2 02/27/2024 04:54 EDT Calcium Lvl 8.8 mg/dL 02/28/2024 04:54 EDT Calcium Lvl 8.5 mg/dL 02/27/2024 04:54 EDT Phosphorus 2.7 mg/dL 02/28/2024 04:54 EDT Phosphorus 3.8 mg/dL 02/27/2024 04:54 EDT Magnesium Lvl 1.8 mg/dL 02/28/2024 04:54 EDT Magnesium Lvl 1.6 mg/dL (Low) 02/27/2024 04:54 EDT ABO/Rh B POS 02/16/2024 13:57 EDT Antibody Screen Negative [facility]SC 02/16/2024 13:57 EDT Microbiology - Current Encounter No qualifying data available. Medications Inpatient No active inpatient medications Home Percocet 5/325 oral tablet, 1 tabs, Oral, q6hr, PRN PreserVision oral tablet, 1 tabs, Oral, Daily Assessment/Plan Post-op pain Patient doing well after sigmoidectomy rectopexy we will allow for discharge home labs reviewed having bowel function follow-up with Dr. Jenkins Electronically signed by Senait RODRÍGUEZ, Iván Kimble 03/02/24 10:56 EDT [facility] 02-26-2024 Note Clinical Information Procedure: Sigmoid resection Pre-operative diagnosis: Rectal Prolapse SP Specimen A Sigmoid colon Gross Description Received in formalin labeled 'sigmoid colon' is a sigmoid colon and two doughnut-shaped pieces of tissue attached to a metal clip. The unremarkable light fitzpatrick doughnuts measure 1.0 cm in length x 1.6 cm in diameter and 0.6 cm in length x 1.7 cm in diameter. The sigmoid colon has a light fitzpatrick serosa and measures 13.0 cm in length x 2.0 cm in diameter. The open colon margin is submitted in cassettes A1-A2. The stapled colon margin is submitted in cassettes A3-A4. The mucosa is light fitzpatrick, without gross lesions. There are scant probable shallow diverticula, which are entirely submitted in cassettes A5-A7. A section of unremarkable colon is submitted in cassette A8. There are two probable light fitzpatrick lymph nodes identified, measuring up to 0.2 cm in greatest dimension, which are submitted in cassette A9. Microscopic Description Sections of the sigmoid colon show no significant pathologic change. There is no evidence of malignancy. There is also one benign lymph node present. Diagnosis Sigmoid colon, sigmoid resection: Segment of benign sigmoid colon, removed for repair of rectal prolapse. [id number] Markie Garcia MD PhD (Electronically signed by) Verified: 03/02/24 14:20 [facility] Comment on above: Performed By: #### S MD #### [facility] (DEFAULT) [address] [place] [address] 08-07-2023 History of Present illness Narrative Spoke [...] week and we will try adding ultram ZI Casey 08/07/23 1226 documented [facility] encounter [facility]-31[facility]2023 History of Present illness Narrative Subjective Patient ID: Petrona Angeles is a 62 y.o. female. Petrona presents [...] Negative empty can test. Equivocal impingement sign [id number] and Neer's test. Negative Adson's test. Neurological: [...] Shoulder exercises given. documented in this encounter [facility] 06-15-2023 History of Present illness Narrative Subjective Patient ID: Petrona Angeles is a 62 y.o. female. She started [...] pain except with movement ZI Casey 06/15/23 [id number] documented in this encounter [facility] 12-16-2022 Note Chief Complaint consultation for screening [...] Recorded SARS-CoV-2 (COVID-19) mRNA-1273 vaccine 09/20/2020 Recorded [facility] Comment on above: Result Comment: Elec tronically [...] May, Right-sided chest pain (ICD-10 - R07.9) [employer] Other 07-09-2022 Evaluation note* Encounter Date Diagnosis [...] Patient care instructions given in writing by [employer] Care At Home document. [employer] Other 11-24-2021 Evaluation note* Encounter Date Diagnosis [...] Patient care instructions given in writting by [facility] Care At Home document. [employer] Other Evaluation noteNo assessment information available [facility] Work Phone: Evaluation note* Diagnosis Mixed hyperlipidemia documented in this encounter [facility] Diagnosis Acute chest wall pain- Primary [facility] in this [facility] [facility]* Diagnosis Acute chest wall pain- Primary documented in this encounter [facility]* Diagnosis Other chest pain- Primary documented in this encounter [facility]* Diagnosis Other chest pain- Primary Ventricular premature depolarization Other premature beats documented in this encounter [facility]* Diagnosis Acute pain of left shoulder- Primary documented in this encounter [facility]* Diagnosis Rib pain on right side- Primary documented in this encounter [facility] [facility]* Diagnosis Lung nodule, solitary- Primary [facility] - Reported* Type Description Date Surgical History tonsillectomy Surgical History cholecystectomy Surgical History tubal ligation Surgical History cyst removal from neck Hospitalization History see above [employer] Other InstructionsNot on filedocumented in this encounter [facility] filedocumented in this encounter [facility] on filedocumented in this encounter [facility] on filedocumented in this encounter [facility]ructions* Attachments The following attachments cannot be sent through Care Everywhere. * Rotator Cuff Tendinitis Stretching Exercises (Cypriot) * Shoulder Bursitis Exercises (Cypriot) documented in [facility] SystemInstructionsNot on file documented in this encounterProWilson HealthInstructionsNot on file documented in [facility] encounterOhio[facility] Advance Directives No Advanced Directives Records Found [...] with contrast Rohith Archer DO [address] [facility], [address] [place] [id number] Referral ID Status Reason Start Date Expiration Date V isits Requested Visits Authorized [id number] Pending Review 02/24/2024 02/23/2025 1 1 Specialty Diagnoses / Procedures Referred By Contac t Referred To Contact Diagnoses Other chest pain Ventricular premature depolarization Procedures Echo stress treadmill W/O contrast Anais Muñoz, QUALITY INSPECTOR-FIRMWARE ARCHITECT [address] [place] [address] Referral ID Status Reason Start Date Expiration Date V isits Requested Visits Authorized [id number] Pending Review 07/01/2023 06/30/2024 5 5 Specialty Diagnoses / Procedures Referred By Contac t Referred To Contact Diagnoses Other chest pain Procedures Stress test (exercise only) Anais Muñoz, QUALITY INSPECTOR-FIRMWARE ARCHITECT [address] [place] [address] Referral ID Status Reason Start Date Expiration Date V isits Requested Visits Authorized [id number] Pending Review 06/17/2023 06/16/2024 5 5 Additional [...] Rohith Archer DO Primary Care Provider Active Yarn Cleaner Relationship Specialty Start Date End Date Rohith Archer DO [address] [place] [address] PCP - General Family Medicine 06/02/22 Yarn Cleaner Relationship Specialty Start Date End Date Rohith Archer DO [address] [place] [address] PCP - General Family Medicine 06/02/22 Yarn Cleaner Relationship Specialty Start Date End Date Rohith Archer DO [address] [place] [address] PCP - General Family Medicine 06/02/22 Yarn Cleaner Relationship Specialty Start Date End Date Rohith Archer DO [address] [place] [address] PCP - General Family Medicine 06/02/22 Yarn Cleaner Relationship Specialty Start Date End Date Rohith Archer DO [address] [place] [address] PCP - General Family Medicine 06/02/22 Yarn Cleaner Relationship Specialty Start Date End Date Rohith Archer DO [address] [place] [address] PCP - General Family Medicine 06/02/22 Yarn Cleaner Relationship Specialty Start Date End Date Rohith Archer DO [address] [place] [address] PCP - General Family Medicine 06/02/22 Goals (unrecognized section and content) Goals may be documented in a n alternate section INFORMATION SOURCE (unrecogn ized section and content) DATE CREATED AUTHOR 06/18/[address] [facility] DATE CREATED AUTHOR AUTHOR'S ORGANIZ ATION 10/03/2022 [facility] DATE CREATED AUTHOR AUTHOR'S ORGANIZ ATION 01/22/2023 [facility] DATE CREATED AUTHOR AUTHOR'S ORGANIZ ATION 07/24/2023 [facility] DATE CREATED AUTHOR AUTHOR'S ORGANIZ ATION 09/03/2023 [facility] DATE CREATED AUTHOR AUTHOR'S ORGANIZ ATION 02/23/[address] [facility] DATE CREATED AUTHOR AUTHOR'S ORGANIZ ATION 03/04/2024 [facility] FOR RECORDS PERTAINING TO PATIENTS WHO [...] BE BASED ON THE PRIMARY CLINICAL RECORDS. [facility]. provides no warranty or guarantee of the accuracy or completeness of information in this document.
[2024-03-07 13:36] LABS: Bilirubin Urine NEGATIVE (NEGATIVE); Blood Urine NEGATIVE (NEGATIVE); Clarity Urine CLEAR (CLEAR); Color Urine LT. YELLOW (YELLOW); Glucose Urine UA NEGATIVE (NEGATIVE); Ketones Urine NEGATIVE (NEGATIVE); Leukocyte Esterase Urine NEGATIVE (NEGATIVE); Nitrite Urine NEGATIVE (NEGATIVE); Protein Urine NEGATIVE (NEG/TRACE); Specific Gravity Urine <=1.005 (1.005-1.025); Urobilinogen Urine 0.2 EU/dL (0.2-1.0); pH Urine 6.5 (5.0-9.0)
[2024-03-07 13:38] LABS: Urine Microscopic Indicated NO
[2024-03-07 14:33] LABS: Basophils Absolute Auto 0.1 10^3/uL (0.0-0.1); Basophils Percent Auto 1.2 % (0.2-2.0); Eosinophils Absolute Auto 0.1 10^3/uL (0.0-0.7); Eosinophils Percent Auto 1.8 % (0.9-7.0); Hematocrit 41.4 % (36.0-48.0); Immature Granulocytes Abs Auto 0.03 10^3/uL (0.00-0.03); Immature Granulocytes Pct Auto 0.4 % (0.0-0.5); Lymphocytes Absolute Auto 1.7 10^3/uL (1.2-3.8); Lymphocytes Percent Auto 22.9 % (20.5-60.0); Mean Corpuscular HGB Conc 33.8 g/dL (29.9-35.2); Mean Corpuscular Volume 91.8 fL (81.0-99.0); Mean Platelet Volume 9.1 fL (9.5-13.5); Monocytes Absolute Auto 0.7 10^3/uL (0.3-0.8); Monocytes Percent Auto 8.9 % (1.7-12.0); Neutrophils Absolute Auto 4.8 10^3/uL (1.4-6.5); Neutrophils Percent Auto 64.8 % (43.0-75.0); Platelet Count 463 10^3/uL (150-450); Red Blood Count 4.51 10^6/uL (4.20-5.40); Red Cell Distribution Width 12.1 % (11.0-15.0); White Blood Count 7.4 10^3/uL (4.0-11.0)
== END 2024-03-07 13:03 | disposition home or self-care (01) ==
LOC: LAB 13:05
PROVIDERS: PCP Family Medicine
DX: R39.15 Urgency of urination (principal); R39.89 Other symptoms and signs involving the genitourinary system
CPT/HCPCS: 36415; 81003; 85025

== ENCOUNTER 2024-12-15 15:32 | Outpatient (OUT) | payer OTHER, SELFPAY ==
--- NOTE | 2024-12-15 15:35 | MM_ITS ---
Patient Name: PETRONA GORDON MR#: [id number] : 1960 Exam Date: 12/15/2024 Ordering Doctor: DR RELL JEFFERSON RADIOLOGY REPORT PROCEDURE: MM TOMOSYNTHESIS SCREENING BI COMPARISON: MM TOMOSYNTHESIS SCREENING BI, 10/06/2023. MG MAMM SCREEN 3D TRISTIN CAD, 09/26/2021. MG MAMM TRISTIN DIAG W CAD, 06/05/2020. MG MAMM SCREEN TRISTIN W CAD, 10/14/2019. INDICATIONS: screening for malignant neoplasm of breast Calculator Name NCI Breast Cancer Risk Assessment Tool 5 Year Breast Cancer Risk 1.50% Lifetime Breast Cancer Risk 6.10% Personal Breast Cancer No Personal Ovarian Cancer No Treatments None Family Cancers Mother with lung cancer at age 45. LOCATION: [facility] BREAST COMPOSITION: There are scattered areas of fibroglandular density. FINDINGS: DIAGNOSTIC CATEGORY 1--NEGATIVE. RIGHT BREAST: No significant suspicious finding. LEFT BREAST: No significant suspicious finding. RECOMMENDATIONS: ROUTINE MAMMOGRAM AND CLINICAL EVALUATION IN 12 MONTHS. PLEASE NOTE: A NORMAL MAMMOGRAM DOES NOT EXCLUDE THE POSSIBILITY OF BREAST CANCER. A CLINICALLY SUSPICIOUS PALPABLE LUMP SHOULD BE BIOPSIED. Dictated by: Walter Harley DO on 12/15/2024 at 16:39 Approved by: Walter Harley DO on 12/15/2024 at 16:41
--- OUTSIDE RECORDS SUMMARY | 2024-12-15 15:35 | XMS_ITS | Encounter Summary ---
Author Organization [facility] tem Address [id number] [address] [place] [address] Care Team Providers Care Natural Fabricator Name Role Phone Rohith Archer DO Primary Care Provider [phone] Encounter Details Date Type Department Care Team (Late st Contact Info) Description 08/07/2023 Telephone [facility] - [facility] [address] [place] [address] Rohith Archer DO [address] [place] [address] Social History Tobacco Use Types Packs/Day Years Used Date Smoking Tobacco: Former Cigarettes 1 47 0 11/17/1973 - 11/28/2020 Smokeless Tobacco: Never Alcohol Use Standard Drinks/Week Comments Never 0 (1 standard drink = 0.6 oz pur e alcohol) Social Connection and Isolat ion Panel [NHANES] Answer Date Recorded In a typical week, how many times do you talk on the phone with family, friends, or neighbors? More than three times a week 08/25/2022 How often do you get togethe r with friends or relatives? More than three times a week 08/25/2022 How often do you attend chur ch or church services? Never 08/25/2022 Do you belong to any clubs o r organizations such as quaker groups, unions, fraternal or athletic groups, or school groups? No 08/25/2022 How often do you attend meet ings of the clubs or organizations you belong to? Never 08/25/2022 Are you , , di vorced, , never , or living with a partner? Never 08/25/2022 AUDIT-C Answer Date Recorded Q1: How often do you have a drink containing alcohol? Never 08/25/2022 Q2: How many drinks containi ng alcohol do you have on a typical day when you are drinking? Patient does not drink Q3: How often do you have si x or more drinks on one occasion? Never 08/25/2022 Overall Financial Resource Strain (CARDIA) Answe r Date Recorded How hard is it for you to pa y for the very basics like food, housing, medical care, and heating? Not hard at all 08/25/2022 PHQ-2 Answer Date Recorded Total Score 0 07/31/2023 [facility]at ional [facility] - Occupational Stress Questionnaire Answer Date Recorded Do you feel stress - tense, restless, nervous, or anxious, or unable to sleep at night because your mind is troubled all the time - these days? Only a little 08/25/2022 Exercise Vital Sign Answer Date Recorde d On average, how many days pe r week do you engage in moderate to strenuous exercise (like a brisk walk)? 0 days 08/25/2022 On average, how many minutes do you engage in exercise at this level? 0 min 08/25/2022 PRAPARE - Transportation Answer Date Re corded In the past 12 months, has l ack of transportation kept you from medical appointments or from getting medications? No 07/2022 In the past 12 months, has l ack of transportation kept you from meetings, work, or from getting things needed for daily living? No 08/25/2022 Housing Instability Answer Date Recorde d Are you worried or concerned that in the next two months you may not have stable housing that you own, rent or stay in as a part of a household? No 08/25/2022 Childcare Answer Date Recorded Do problems getting child ca re make it difficult for you to work or study? No 08/25/2022 Employment Answer Date Recorded Do you need help finding a [facility] career center and/or a training program? No 08/25/2022 Hunger Screening Answer Date Recorded Within the past 12 months we worried whether our food would run out before we got money to buy more. Never True 07/31/2023 Within the past 12 months th e food we bought just didn't last and we didn't have money to get more. Never True 07/31/2023 Comments No Sex and Gender Information Value Date Recorded Sex Assigned at Not on file Legal Sex Female 7:32 PM EDT Gender Identity Not on file Sexual Orientation Not on file documented as of this encounter Miscellaneous Notes * Telephone Encounter - Aleyda Ram - 08/07/2023 11:50 AM EDT Patient called and was complaining of pain still, she wanted kiki to call her, I let her know that I could get a message back to kiki for her or can get her another appointment, she then started getting snappy saying she was just here she doesn't want another appointment just wants to know the nextsteps, she said nobody called her with her xr results so I offered to give them to get and because they were sent over [facility] to the patient. She said gather all my records and I will find another dr * Telephone Encounter - ZI Casey - 08/07/2023 11:50 AM EDT Called and spoke with her, note written documented in this encounter Plan of Treatment Upcoming Encounters Date Type Department Care Team (Late st Contact Info) Description 01/19/2025 3:15 PM EDT Office Visit [facility] [address] [place] [id number] Rohith Archer DO [address], [place] [address] documented as of this encounter Visit Diagnoses Not on filedocumented in this encounter Additional Health Concerns Assessment Noted Time PHQ-9 Depression Total Score: 0 07/31/19 24 10:54 AM EST documented as of this encounter Care Teams Natural Fabricator Relationship Specialty Start Date End Date Rohith Archer DO [address], [facility] [address] PCP - General Family Medicine 06/02/22 documented as of this encounter
--- OUTSIDE RECORDS SUMMARY | 2024-12-15 15:35 | XMS_ITS | Encounter Summary ---
Author Organization [employer] Address [facility] [id number] [address] [place] [address] Care Team Providers Care Nuclear Equipment Test Engineer Name Role Phone Rohith Archer DO Primary Care Provider [phone] Encounter Details Date Type Department Care Team (Late st Contact Info) Description 08/04/2023 Telephone [facility] Internal [facility] - Family Medicine [address] [place] [address] Gildardo, Ellie, BICYCLE DESIGNER Social History Tobacco Use Types Packs/Day Years [...] often do you attend chur ch or yarsanism services? Never 08/25/2022 Do you belong to any clubs o r organizations such as jewish groups, unions, fraternal or athletic groups, or [...] Answer Date Recorded Total Score 0 07/31/2023 [facility] - Occupational Stress Questionnaire Answer Date [...] Recorded Do you need help finding a [facility] and/or a training program? No [...] encounter Miscellaneous Notes * Telephone Encounter - Ellie Ewing CMA - 08/04/2023 10:17 AM EDT Pt called stated she had xrays done Thursday , she stated that also that told her to have someone else read them .. I didn't even see any results in her chart maybe I missed them somewhere? * Telephone Encounter - Nam Salinas DO - 08/04/2023 10:17 AM EDT Message noted. Where were the xrays taken, and what body part was xrayed? * Telephone Encounter - Ellie Ewing CMA - 08/04/2023 10:17 AM EDT Called pt xrays were done at [facility] of the left shoulder * Telephone Encounter - Nam Salinas DO - 08/04/2023 10:17 AM EDT Message noted. Please contact [place] to send over the reports of the x-rays * Telephone Encounter - Ellie Ewing CMA - 08/04/2023 10:17 AM EDT I called [facility] left vm to call back pt had also called to tell them to send them over * Telephone Encounter - Ellie Ewing CMA - 08/04/2023 10:17 AM EDT The results are in her media folder there were received today documented in this encounter Plan of Treatment Upcoming Encounters Date Type Department Care Team (Late st Contact Info) Description 01/19/2025 3:15 PM EDT Office Visit [facility] - Family Medicine [address] [place] [address] Rohith Archer DO [address], [place] [address] documented as of this encounter Visit Diagnoses Not on filedocumented in this encounter Additional Health Concerns Assessment Noted Time PHQ-9 Depression Total Score: 0 07/31/19 24 10:54 AM EST documented as of this encounter Care Teams Nuclear Equipment Test Engineer Relationship Specialty Start Date End Date Rohith Archer DO [address], [facility] [place] [address] PCP - General Family Medicine 06/02/22 documented as of this encounter
--- OUTSIDE RECORDS SUMMARY | 2024-12-15 15:36 | XMS_ITS | Encounter Summary ---
Author Organization [employer] Address [facility] [id number] [address] [place] [address] Care Team Providers Care Audio Narrator Name Role Phone GianniRohith Mario KAPOOR Primary Care Provider Encounter Details Date Type Department Care Team (Late st Contact Info) Description 03/07/2024 Telephone [facility] Internal Medicine - Family Medicine [address] [place] [address] Peggy Azul CMA Social History Tobacco Use Types Packs/Day Years Used Date Smoking Tobacco: Former Cigarettes 1 47 0 11/17/1973 - 11/28/2020 Smokeless Tobacco: Never Alcohol Use Standard Drinks/Week Comments Never 0 (1 standard drink = 0.6 oz pur e alcohol) [facility] Utilities Answer Date Recorded In the past 12 months has [employer] electric, gas, oil, or water company threatened to shut off services in your home? No 09/01/2023 Social Connection and Isolat ion Panel [NHANES] Answer Date Recorded In a typical week, how many times do you talk on the phone with family, friends, or neighbors? More than three times a week 08/25/2022 How often do you get togethe r with friends or relatives? More than three times a week 08/25/2022 How often do you attend chur ch or denominational services? Never 08/25/2022 Do you belong to any clubs o r organizations such as shinto groups, unions, fraternal or athletic groups, or [...] PHQ-2 Answer Date Recorded Total Score 0 02/22/2024 [facility] of Occupat ional Health - Occupational Stress [...] Recorded Do you need help finding a [facility] career center and/or a training program? No 08/25/2022 Hunger Screening Answer Date Recorded Within the past 12 months we worried whether our food would run out before we got money to buy more. Never True 02/22/2024 Within the past 12 months th e food we bought just didn't last and we didn't have money to get more. Never True 02/22/2024 Purpose - Life Answer Date Recorded I have a purpose and direction in my life. Agree 09/01/2023 Comments No Sex and Gender Information Value Date Recorded Sex Assigned at Not on file Legal Sex Female 7:32 PM EDT Gender Identity Not on file Sexual Orientation Not on file documented as of this encounter Miscellaneous Notes * Telephone Encounter - Gino Wang CMA - 03/07/2024 2:[address] scan did not show any lung nodules. It was felt to be more atelectasis or consolidation. Recheck CT scan in 1 year ----- Message ----- From: Gino Wang CMA Sent: 03/04/2024 1:24 PM EDT To: Rohith Archer DO Subject: Import Imported by Gino Wang CMA on 03/04/2024 at 1:24 PM to the following: CT chest without contrast [[id number]] on 03/04/2024 I called pt and read result note. She verbally states she understands.Recheck in a year documented in this encounter Plan of Treatment Upcoming Encounters Date Type Department Care Team (Late st Contact Info) Description 01/19/2025 3:15 PM EDT Office Visit [facility] - Family Medicine [address] [place] [address] Rohith Archer DO [address] [facility] [place] [address] documented as of this encounter Visit Diagnoses Not on filedocumented in this encounter Additional Health Concerns Assessment Noted Time PHQ-9 Depression Total Score: 0 02/22/20 24 11:04 AM EDT documented as of this encounter Care Teams Audio Narrator Relationship Specialty Start Date End Date Rohith Archer DO [address] [facility] [place] [address] PCP - General Family Medicine 06/02/22 documented as of this encounter
--- OUTSIDE RECORDS SUMMARY | 2024-12-15 15:36 | XMS_ITS | Encounter Summary ---
Author Organization [facility] tem Address [facility] [id number] [address] [place] [address] Care Team Providers Care Ordnance Truck Installation Supervisor Name Role Phone Rohith Archer DO Primary Care Provider Encounter Details Date Type Department Care Team (Late st Contact Info) Description 08/01/2022 Telephone [facility] Internal Medicine - Family Medicine [address] [place] [address] Cami Phillip CMA Social History Tobacco Use Types Packs/Day Years Used Date Smoking Tobacco: Never Assessed Childcare Answer Date Recorded Childcare Unknown 11/02/2018 Employment Answer Date Recorded Employment Unknown 11/02/2018 Comments Unknown Sex and Gender Information Value Date Recorded Sex Assigned at Not on file Legal Sex Female 7:32 PM EDT Gender Identity Not on file Sexual Orientation Not on file documented as of this encounter Miscellaneous Notes * Telephone Encounter - Cami Phillip CMA - 08/01/2022 9:49 AM EST Please order her Cologard. She is due 03/30/22 * Telephone Encounter - Rohith Archer DO - 08/01/2022 9:49 AM EST She is due for a wellness after 08/16/22 documented in this encounter Plan of Treatment Upcoming Encounters Date Type Department Care Team (Late st Contact Info) Description 01/19/2025 3:15 PM EDT Office Visit [facility] - Family Medicine [address] [place] [address] Rohith Archer DO [address], [facility] [place] [address] documented as of this encounter Visit Diagnoses Not on filedocumented in this encounter Care Teams Ordnance Truck Installation Supervisor Relationship Specialty Start Date End Date Rohith Archer DO [address] [place] [address] PCP - General Family Medicine 06/02/22 documented as of this encounter
--- OUTSIDE RECORDS SUMMARY | 2024-12-15 15:36 | XMS_ITS | Encounter Summary ---
Author Organization [employer] [facility] tem Address [facility] [id number] [address] [place] [address] Care Team Providers Care Sales Management Intern Name Role Phone Rohith Archer DO Primary Care Provider [phone] Encounter Details Date Type Department Care Team (Late st Contact Info) Description 02/25/2024 Orders Only [facility] Internal Medicine - Family Medicine [address] [place] [address] Rohith Archer DO [address], [place] [address] Social History Tobacco Use Types Packs/Day Years Used Date Smoking Tobacco: Former Cigarettes 1 47 0 11/17/1973 - 11/28/2020 Smokeless Tobacco: Never Alcohol Use Standard Drinks/Week Comments Never 0 (1 standard drink = 0.6 oz pur e alcohol) [facility] Utilities Answer Date Recorded In the past 12 months has [employer], gas, oil, or water [employer] threatened to shut off services in your [...] week 08/25/2022 How often do you attend [facility] or denominational services? Never 08/25/2022 Do you belong to any clubs o r organizations such as confucianism groups, unions, fraternal or athletic groups, or [...] Answer Date Recorded Total Score 0 02/22/2024 [facility] of Occupat ional Health - Occupational Stress [...] Recorded Do you need help finding a [facility] career center and/or a training program? [...] on file documented as of this encounter Plan of Treatment Upcoming Encounters Date Type Department Care Team (Late st Contact Info) Description 01/19/2025 3:15 PM EDT Office Visit [facility] Medicine - Family Medicine [address] [place] [address] Rohith Archer DO [address] [facility] [place] [address] documented as of this encounter Visit Diagnoses Not on filedocumented in this encounter Additional Health Concerns Assessment Noted Time PHQ-9 Depression Total Score: 0 02/22/20 24 11:04 AM EDT documented as of this encounter Care Teams Sales Management Intern Relationship Specialty Start Date End Date Rohith Archer DO [address] [facility] [address] PCP - General Family Medicine 06/02/22 documented as of this encounter
--- OUTSIDE RECORDS SUMMARY | 2024-12-15 15:36 | XMS_ITS | Encounter Summary ---
Author Organization [employer] tem Address [facility]-[id number] [address] [place] [address] Care Team Providers Care Clinical Education Assistant Name Role Phone GianniRohith Mario KAPOOR Primary Care Provider [phone] Encounter Details Date Type Department Care Team (Late st Contact Info) Description 03/04/2024 Telephone [facility] Internal Medicine - Family Medicine [address] [place] [address] Gino Wang CMA Social History Tobacco Use Types Packs/Day Years Used Date Smoking Tobacco: Former Cigarettes 1 47 0 11/17/1973 - 11/28/2020 Smokeless Tobacco: Never Alcohol Use Standard Drinks/Week Comments Never 0 (1 standard drink = 0.6 oz pur e alcohol) [facility] Utilities Answer Date Recorded In the past 12 months has [employer] electric, gas, oil, or water company threatened [...] often do you attend chur ch or baptist services? Never 08/25/2022 Do you belong to any clubs o r organizations such as catholic groups, unions, fraternal or athletic groups, or [...] Recorded Do you need help finding a [facility] career center and/or a training program? No [...] Telephone Encounter - Gino Wang CMA - 03/04/2024 11:50 AM EDT Pt called to let you know she had her CT/SCAN was done on 03/04 documented in this encounter Plan of Treatment Upcoming Encounters Date Type Department Care Team (Late st Contact Info) Description 01/19/2025 3:15 PM EDT Office Visit [facility] - Family Medicine [address] [place] [address] Rohith Archer DO [address] [facility] [address] documented as of this encounter Visit Diagnoses Not on filedocumented in this encounter Additional Health Concerns Assessment Noted Time PHQ-9 Depression Total Score: 0 02/22/20 24 11:04 AM EDT documented as of this encounter Care Teams Clinical Education Assistant Relationship Specialty Start Date End Date Rohith Archer DO [address] [facility] [address] PCP - General Family Medicine 06/02/22 documented as of this encounter
--- OUTSIDE RECORDS SUMMARY | 2024-12-15 15:36 | XMS_ITS | Encounter Summary ---
Author Organization [employer] tem Address [facility] [place]-[id number] [address] [place] [address] Care Team Providers Care Dry Talc Racker Name Role Phone JulioRohith gramajo Mario KAPOOR Primary Care Provider [phone] Encounter Details Date Type Department Care Team (Late st Contact Info) Description 09/30/2022 Orders Only [facility] Internal Medicine - Family Medicine [address] [place] [address] Cami Phillip CMA Ex-cigarette smoker Social History Tobacco Use Types Packs/Day Years [...] often do you attend chur ch or voodoo services? Never 08/25/2022 Do you belong to any clubs o r organizations such as scientology groups, unions, fraternal or athletic groups, or [...] PHQ-2 Answer Date Recorded Total Score 0 08/25/2022 [facility] of Occupat ional Health - Occupational Stress [...] Recorded Do you need help finding a [facility] career center and/or a training program? No 08/25/2022 Comments Unknown Sex and Gender Information Value [...] - Family Medicine [address] [place] [address] Rohith Archer DO [address], [facility] [place] [address] documented as of this encounter Procedures Procedure Name Priority Date/Time Associated Diagnosis Comments CT LOW DOSE LUNG SCREENING Routine 09/30/2022 8:56 AM EDT Ex-cigarette smoker documented in this encounter Results * CT low dose lung screening (Annual) (09/30/2022 8:56 AM EDT) Anatomical Region Laterality Modality Body, Lung, Chest, Body Covera C omputed Tomography us Rohith Archer DO IMG CT ORDERABLES Final Resu lt documented in this encounter Visit Diagnoses Diagnosis Ex-cigarette smoker Personal history of tobacco use, presenting hazards to health documented in this encounter Additional Health Concerns Assessment Noted Time PHQ-9 Depression Total Score: 0 08/26/19 3:31 PM EDT documented as of this encounter Care Teams Dry Talc Racker Relationship Specialty Start Date End Date Rohith Archer DO [address], [facility] [place] [address] PCP - General Family Medicine 06/02/22 documented as of this encounter
--- OUTSIDE RECORDS SUMMARY | 2024-12-15 15:36 | XMS_ITS | Encounter Summary ---
Author Organization [employer] Address [facility] [id number] [address] [place] [address] Care Team Providers Care Barrel Roller Name Role Phone GianniRohith Mario KAPOOR Primary Care Provider Encounter Details Date Type Department Care Team (Late st Contact Info) Description 06/16/2023 Orders Only [facility] Internal [facility] - Family Medicine [address] [place] [address] Anais Muñoz, DIRECTOR INDUSTRIAL NURSING-RAILROAD DINING CAR STEWARD/STEWARDESS [address] [place] [place] [address] Acute chest wall pain Social History Tobacco Use Types Packs/Day Years [...] often do you attend chur ch or samaritan services? Never 08/25/2022 Do you belong to any clubs o r organizations such as restorationism groups, unions, fraternal or athletic groups, or [...] PHQ-2 Answer Date Recorded Total Score 0 06/15/2023 [facility] of Occupat ional Health - Occupational [...] Recorded Do you need help finding a [facility] career center and/or a training program? No 08/25/2022 Hunger Screening Answer Date Recorded Within the past 12 months we worried whether our food would run out before we got money to buy more. Never True 06/15/2023 Within the past 12 months th e food we bought just didn't last and we didn't have money to get more. Never True 06/15/2023 Comments Unknown Sex and Gender Information Value [...] - Family Medicine [address] [place] [address] Rohith Archer DO [address], [facility] [place] [address] documented as of this encounter Procedures Procedure Name Priority Date/Time Associated Diagnosis Comments XR RIBS LT 3 VWS W PA CHEST Routine 06/15/2023 Acute chest wall pain documented in this encounter Results * X-ray ribs left 3 views with pa chest (06/15/2023) Anatomical Region Laterality Modality MSK, Chest Left Computed Radiogr aphy Anais Muñoz DIRECTOR INDUSTRIAL NURSING-RAILROAD DINING CAR STEWARD/STEWARDESS IMG DIAGNOSTIC IMAGING DEA ZAIDI Final Result documented in this encounter Visit Diagnoses Diagnosis Acute chest wall pain documented in this encounter Additional Health Concerns Assessment Noted Time PHQ-9 Depression Total Score: 0 06/15/19 24 3:31 PM EST documented as of this encounter Care Teams Barrel Roller Relationship Specialty Start Date End Date Rohith Archer DO [address] [facility] [place] [address] PCP - General Family Medicine 06/02/22 documented as of this encounter
--- OUTSIDE RECORDS SUMMARY | 2024-12-15 15:36 | XMS_ITS | Encounter Summary ---
Author Organization [employer] tem Address [facility] [id number] [address] [place] [address] Care Team Providers Care Medical Interpreter Name Role Phone Rohith Archer DO Primary Care Provider Encounter Details Date Type Department Care Team (Late Contact Info) Description 08/05/2022 Orders Only [facility] - Family Medicine [address] [place] [address] Rohith Archer DO [address], [facility] [place] [address] Social History Tobacco Use Types Packs/Day Years [...] Encounters Date Type Department Care Team (Late Contact Info) Description 01/19/2025 3:15 PM EDT Office Visit [facility] - Family Medicine [address] [place] [address] Rohith Archer DO [address] [facility] [place] [address] documented as of this encounter Procedures Procedure Name Priority Date/Time Associated Diagnosis Comments COLOGUARD Routine 04/05/2019 documented in this encounter Results * COLOGUARD (04/05/2019) us Rohith Archer DO HEALTH MAINTENANCE Final Res ult MANUALLY TRANSCRIBED RESULTS documented in this encounter Visit Diagnoses Not on filedocumented in this encounter Care Teams Medical Interpreter Relationship Specialty Start Date End Date Rohith Archer DO [address] [facility] [place] [address] PCP - General Family Medicine 06/02/22 documented as of this encounter
--- OUTSIDE RECORDS SUMMARY | 2024-12-15 15:36 | XMS_ITS | Encounter Summary ---
Author Organization [employer] tem Address [facility] [place]-[id number] [address] [place] [address] Care Team Providers Care Clip Baker Name Role Phone Rohith Archer DO Primary Care Provider Encounter Details Date Type Department Care Team (Late Contact Info) Description 08/19/2022 Orders Only [facility] Internal Medicine - Family Medicine [address] [place] [address] Rohith Archer DO [address], [facility] [place] [address] Social History Tobacco Use Types Packs/Day Years [...] Medicine - Family Medicine [address] [place] [address] Rohith Archer DO [address] [facility] [place] [address] documented as of this encounter Visit Diagnoses Not on filedocumented in this encounter Care Teams Clip Baker Relationship Specialty Start Date End Date Rohith Archer DO [address], [facility] [place] [address] PCP - General Family Medicine 06/02/22 documented as of this encounter
--- OUTSIDE RECORDS SUMMARY | 2024-12-15 15:36 | XMS_ITS | Encounter Summary ---
Author Organization [employer] Address [facility] [id number] [address] [place] [address] Care Team Providers Care Roustabout Crew Leader Name Role Phone GianniRohith Mario KAPOOR Primary Care Provider [phone] Encounter Details Date Type Department Care Team (Late st Contact Info) Description 07/28/2023 Telephone [facility] - Family Medicine [address] [place] [address] aCmi Phillip CMA Social History Tobacco Use Types [...] often do you attend chur ch or catholic services? Never 08/25/2022 Do you belong to any clubs o r organizations such as hindu groups, unions, fraternal or athletic groups, or [...] Total Score 0 07/31/2023 [facility] - Occupational Stress Questionnaire Answer Date Recorded [...] Recorded Do you need help finding a [facility] career [facility] and/or a training program? No [...] Telephone Encounter - Cami Phillip CMA - 07/28/2023 11:01 AM EST Patient called and she is doing no better. Wants to know what she can do from here? * Telephone Encounter - ZI Casey - 07/28/2023 11:01 AM EST Pain is still in the same area and hasn't improved with the meloxicam? No indigestion or heartburn? * Telephone Encounter - Gino Wang CMA - 07/28/2023 11:01 AM EST I called pt ,and Yes the Pain is in the same area and has not improved with Meloxicam. No Indigestion or Heartburn. Now states her right arm aches. * Telephone Encounter - ZI Casey - 07/28/2023 11:01 AM EST I'm really stumped, the chest x-ray and rib x-ray revealed nothing, the stress test was normal, pain medication is not helping, how about you make an apt with Dr Archer and see what he thinks * Telephone Encounter - Cami Phillip CMA - 07/28/2023 11:01 AM EST Spoke with the patient and sent her to the front to schedule an appointment documented in this encounter Plan of Treatment Upcoming Encounters Date Type Department Care Team (Late st Contact Info) Description 01/19/2025 3:15 PM EDT Office Visit [facility] - Family Medicine [address] [place] [address] Rohith Archer DO [address] [place] [address] documented as of this encounter Visit Diagnoses Not on filedocumented in this encounter Additional Health Concerns Assessment Noted Time PHQ-9 Depression Total Score: 0 06/15/19 24 3:31 PM EST documented as of this encounter Care Teams Roustabout Crew Leader Relationship Specialty Start Date End Date Rohith Archer DO [address] [place] [address] PCP - General Family Medicine 06/02/22 documented as of this encounter
--- OUTSIDE RECORDS SUMMARY | 2024-12-15 15:36 | XMS_ITS | Encounter Summary ---
Author Organization [employer] Address [id number] [address] [place] [address] Care Team Providers Care Ordering Machine Operator Name Role Phone JulioRohith gramajo Mario KAPOOR Primary Care Provider Encounter Details Date Type Department Care Team (Late st Contact Info) Description 10/08/2023 Orders Only [facility] - Family Medicine [address] [place] [address] Cami Phillip CMA Encounter for screening mammogram for malignant neoplasm of breast; Ex-cigarette smoker Social History Tobacco Use Types Packs/Day Years Used Date Smoking Tobacco: Former Cigarettes 1 47 0 11/17/1973 - 11/28/2020 Smokeless Tobacco: Never Alcohol Use Standard Drinks/Week Comments Never 0 (1 standard drink = 0.6 oz pur e alcohol) [facility] Utilities Answer Date Recorded In the past 12 months has [employer], gas, oil, or water [employer] threatened to shut off services in your [...] often do you attend chur ch or tenriism services? Never 08/25/2022 Do you belong to any clubs o r organizations such as sabianism groups, unions, fraternal or athletic groups, or [...] PHQ-2 Answer Date Recorded Total Score 0 09/01/2023 [facility] Occupat ional Health - Occupational Stress [...] Recorded Do you need help finding a [facility] career center and/or a training program? No 08/25/2022 Hunger Screening Answer Date Recorded Within the past 12 months we worried whether our food would run out before we got money to buy more. Never True 09/01/2023 Within the past 12 months th e food we bought just didn't last and we didn't have money to get more. Never True 09/01/2023 Purpose - Life Answer Date Recorded I [...] - Family Medicine [address] [place] [address] Rohith Archer DO [address], [facility] [place] [address] documented as of this encounter Procedures Procedure Name Priority Date/Time Associated Diagnosis Comments MAMM SCREENING BILATERAL W CAD Routine 10/06/2023 Encounter for screening mammogram for malignant neoplasm of breast CT LOW DOSE LUNG SCREENING Routine 10/06/2023 Ex-cigarette smoker documented in this encounter Results * CT low dose lung screening (Annual) (10/06/2023) Anatomical Region Laterality Modality Body, Lung, Chest, Body Covera C omputed Tomography 10/06/2023 us Rohith Archer DO IMG CT ORDERABLES Final Resu lt * Mammography screening bilateral with CAD (10/06/2023) Anatomical Region Laterality Modality Breast Bilateral Mammography 10/06/2023 us Rohith Archer DO IMG MAMMOGRAPHY ORDERABLES F inal Result documented in this encounter Visit Diagnoses Diagnosis Encounter for screening mammogram for malignant neoplasm of breast Ex-cigarette smoker Personal history of tobacco use, presenting hazards to health documented in this encounter Additional Health Concerns Assessment Noted Time PHQ-9 Depression Total Score: 0 09/01/19 24 3:18 PM EDT documented as of this encounter Care Teams Ordering Machine Operator Relationship Specialty Start Date End Date Rohith Archer DO [address], [facility] [place] [address] PCP - General Family Medicine 06/02/22 documented as of this encounter
--- OUTSIDE RECORDS SUMMARY | 2024-12-15 15:36 | XMS_ITS | Encounter Summary ---
Author Organization [employer] Address [facility] [id number] [address] [place] [address] Care Team Providers Care Implementation Consultant Name Role Phone Rohith Archer DO Primary Care Provider Encounter Details Date Type Department Care Team (Late st Contact Info) Description 02/29/2024 Telephone [facility] - Family Medicine [address] [place] [address] Gildardo, Ellie, EGG BUYER Social History Tobacco Use Types Packs/Day Years Used Date Smoking Tobacco: Former Cigarettes 1 47 0 11/17/1973 - 11/28/2020 Smokeless Tobacco: Never Alcohol Use Standard Drinks/Week Comments Never 0 (1 standard drink = 0.6 oz pur e alcohol) [facility] Utilities Answer Date Recorded In the past 12 months has [employer], gas, oil, or water company threatened [...] often do you attend chur ch or yazdanism services? Never 08/25/2022 Do you belong to any clubs o r organizations such as yarsani groups, unions, fraternal [...] Answer Date Recorded Total Score 0 02/22/2024 [facility] of Occupat ional Health - Occupational [...] Do you need help finding a [facility] career center and/or a training [...] Medicine - Family Medicine [address] [place] [address] Rohith Archer DO [address], [facility] [place] [address] documented as of this encounter Visit Diagnoses Not on filedocumented in this encounter Additional Health Concerns Assessment Noted Time PHQ-9 Depression Total Score: 0 02/22/20 24 11:04 AM EDT documented as of this encounter Care Teams Implementation Consultant Relationship Specialty Start Date End Date Rohith Archer DO [address] [facility] [place] [address] PCP - General Family Medicine 06/02/22 documented as of this encounter
--- OUTSIDE RECORDS SUMMARY | 2024-12-15 15:36 | XMS_ITS | Encounter Summary ---
Author Organization [employer] Address [id number] [address] [place] [address] Care Team Providers Care Concrete Wall Grinder Operator Name Role Phone Rohith Archer DO Primary Care Provider [phone]- [phone] Reason for Visit * Reason Comments Med Refill Encounter Details Date Type Department Care Team (Late st Contact Info) Description 06/22/2022 Refill [facility] - Family Medicine [address] [place] [address] Rohith Archer DO [address] [facility] [place] [address] Mixed hyperlipidemia Social History Tobacco Use Types Packs/Day Years [...] Medicine - Family Medicine [address] [place] [address] Rohith Archer DO [address] [facility] [place] [address] documented as of this encounter Visit Diagnoses Diagnosis Mixed hyperlipidemia documented in this encounter Care Teams Concrete Wall Grinder Operator Relationship Specialty Start Date End Date Rohith Archer DO [address], [facility] [place] [address] PCP - General Family Medicine 06/02/22 documented as of this encounter
--- OUTSIDE RECORDS SUMMARY | 2024-12-15 15:36 | XMS_ITS | Encounter Summary ---
Author Organization [facility] tem Address [facility]-[id number] [address] [place] [address] Care Team Providers Care Butadiene Converter Operator Name Role Phone Rohith Archer DO Primary Care Provider [phone]- [phone] Encounter Details Date Type Department Care Team (Late st Contact Info) Description 08/05/2023 Orders Only [facility] - Family Medicine [address] [place] [address] Rohith Archer DO [address], [place] [address] Acute pain of left shoulder Social History Tobacco Use Types Packs/Day Years [...] often do you attend chur ch or jehovah's witness services? Never 08/25/2022 Do you belong to any clubs o r organizations such as yarsanism groups, unions, fraternal or athletic groups, or [...] Answer Date Recorded Total Score 0 07/31/2023 [facility] [place] of Occupat ional Health - Occupational Stress [...] Do you need help finding a [facility] career center and/or a training program? [...] Medicine - Family Medicine [address] [place] [address] Rohith Archer DO [address] [facility] [address] documented as of this encounter Procedures Procedure Name Priority Date/Time Associated Diagnosis Comments XR SHOULDER LT MIN 2 VWS Routine 07/31/2023 9:14 AM EST Acute pain of left shoulder documented in this encounter Results * X-ray shoulder left minimum 2 views (07/31/2023 9:14 AM EST) Anatomical Region Laterality Modality MSK, Upper Extremities, Shoulder Left Computed Radiography Rohith Archer DO IMG DIAGNOSTIC IMAGING ORDER [place] Final Result documented in this encounter Visit Diagnoses Diagnosis Acute pain of left shoulder documented in this encounter Additional Health Concerns Assessment Noted Time PHQ-9 Depression Total Score: 0 07/31/19 24 10:54 AM EST documented as of this encounter Care Teams Butadiene Converter Operator Relationship Specialty Start Date End Date Rohith Archer DO [address] [facility] [place] [address] PCP - General Family Medicine 06/02/22 documented as of this encounter
--- OUTSIDE RECORDS SUMMARY | 2024-12-15 15:36 | XMS_ITS | Clinical Summary ---
Author Organization [facility] Healthcare Address [address] [facility] [place] [address] Care Team Providers Care Mill Beam Fitter Name Role Phone Unavailable Primary Care Provider Unavailabl e Social History Tobacco Use Types Packs/Day Years Used Date Smoking Tobacco: Never Assessed Comments Unknown Sex and Gender Information Value Date Recorded Sex Assigned at Not on file Legal Sex Female 11:00 PM EDT Gender Identity Not on file Sexual Orientation Not on file Last Filed Vital Signs Vital Sign Reading Time Taken Comments Blood Pressure 122/78 03/16/2020 12:00 PM EDT Pulse - - Temperature - - Respiratory Rate - - Oxygen Saturation - - Inhaled Oxygen Concentration - - Weight 56.7 kg (125 lb) 03/19/2020 12:00 PM EDT Height 160 cm (5' 3 ) 03/19/2020 12:00 PM EDT Body Mass Index 22.14 03/19/2020 12:00 PM EDT Plan of Treatment Not on file Insurance [employer]
--- OUTSIDE RECORDS SUMMARY | 2024-12-15 15:36 | XMS_ITS | Encounter Summary ---
Author Organization [employer] Address [facility] [id number] [address] [place] [address] Care Team Providers Care Lumber Inspector Name Role Phone GianniRohith Mario KAPOOR Primary Care Provider [phone]- [phone] Encounter Details Date Type Department Care Team (Late st Contact Info) Description 06/16/2023 Telephone [facility] - Family Medicine [address] [place] [address] Gino Wang CMA Social History Tobacco Use [...] often do you attend chur ch or advent services? Never 08/25/2022 Do you belong to [...] Answer Date Recorded Total Score 0 06/15/2023 [facility] - Occupational Stress Questionnaire Answer Date [...] Do you need help finding a [facility] career [facility] and/or a training program? [...] Telephone Encounter - Gino Wang CMA - 06/16/2023 1:08 PM EST Pt called about results from her xray done 06/15. She had it done at [facility] * Telephone Encounter - Rohith Archer DO - 06/16/2023 1:08 PM EST Did you get the X-ray back yet? * Telephone Encounter - ZI Casey - 06/16/2023 1:08 PM EST No I have not seen the results, can you call and see if they have been read * Telephone Encounter - Aleyda Ram - 06/16/2023 1:08 PM EST XR of ribs was put in yesterday before I left, just sent to both * Telephone Encounter - ZI Casey - 06/16/2023 1:08 PM EST Yes, I sent the results to the clinical staff they were normal. I think the next step would be to check a stress test just to be sure but I also think it wouldn't hurt to try something for pain as this is likely musckuloskeletal. We usually do stress tests with Dr Salinas at [place], is that ok? documented in this encounter Plan of Treatment Upcoming Encounters Date Type Department Care Team (Late st Contact Info) Description 01/19/2025 3:15 PM EDT Office Visit [facility] - Family Medicine [address] [place] [address] Rohith Archer DO [address] [facility] [place] [address] documented as of this encounter Visit Diagnoses Not on filedocumented in this encounter Additional Health Concerns Assessment Noted Time PHQ-9 Depression Total Score: 0 06/15/19 24 3:31 PM EST documented as of this encounter Care Teams Lumber Inspector Relationship Specialty Start Date End Date Rohith Archer DO [address] [facility] [place] [address] PCP - General Family Medicine 06/02/22 documented as of this encounter
--- OUTSIDE RECORDS SUMMARY | 2024-12-15 15:36 | XMS_ITS | Clinical Summary ---
Author Organization [employer] Address [id number] [address] [place] [address] Care Team Providers Care Flight Engineer Inspector Name Role Phone JulioRohith gramajo Primary Care Provider Allergies No known active allergies Medications polycarbophil (FIBER, CALCIUM POLYCARBOPHIL,) 625 mg tablet Take 1 tablet (625 mg total) by mouth. 12/16/2022 Active vit C,A-Vg-xzsdd-tyesha tein-zeaxan (PRESERVISION AREDS-2) 250-90-40-1 mg capsule Taking,but holding for surgery Active Active Problems Problem Noted Date Diagnosed Date Mixed hyperlipidemia 06/15/2023 Ex-cigarette smoker 08/25/2022 Exudative age-related macular degeneration of ri ght eye 07/03/2020 COPD (chronic obstructive pulmonary disease) Resolved Problems Problem Noted Date Diagnosed Date Resolved Date Overweight 08/25/2022 02/22/2024 Immunizations Immunization Administration Dates Next Due Influenza, Injectable, MDCK, Quadrivalent 2018 Tdap 03/22/2019 Family History Medical History Relation Name Comments Heart disease Brother Heart disease Father Iván Lung cancer Mother COPD Sister 1 Heart attack Sister 2 Heart disease Sister 2 Relation Name Status Comments Brother Father Iván Alive Mother Sister 1 Sister 2 Alive Son 1 Alive Son 2 Alive Son 3 Alive Social History Tobacco Use Types Packs/Day Years Used Date Smoking Tobacco: Former Cigarettes 1 47 0 11/17/1973 - 11/28/2020 Smokeless Tobacco: Never Tobacco Cessation:Counseling Given: Not Answered Alcohol Use Standard Drinks/Week Comments Never 0 (1 standard drink = 0.6 oz pur e alcohol) [facility] Utilities Answer Date Recorded In the past 12 months has th e electric, gas, oil, or water company threatened [...] often do you attend chur ch or judaism services? Never 08/25/2022 Do you belong to any clubs o r organizations such as buddhism groups, unions, fraternal or athletic groups, or [...] Answer Date Recorded Total Score 0 02/22/2024 [facility] [place] of Occupat ional Health - Occupational Stress [...] Sign Reading Time Taken Comments Blood Pressure 118/58 02/22/2024 11:04 AM EDT Pulse 79 02/22/2024 11:04 AM EDT Temperature 36.6 C (97.8 F) 02/22/2024 11:04 AM EDT Respiratory Rate 18 02/22/2024 11:04 AM EDT Oxygen Saturation 96% 02/22/2024 11:04 AM EDT Inhaled Oxygen Concentration - - Weight 59.5 kg (131 lb 3.2 oz) 02/22/2024 11:04 AM EDT Height 160 cm (5' 3 ) 02/22/2024 11:04 AM EDT Body Mass Index 23.24 02/22/2024 11:04 AM EDT Plan of Treatment Upcoming Encounters Date Type Department Care Team (Late st Contact Info) Description 01/19/2025 3:15 PM EDT Office Visit [facility] - Family Medicine [address] [place] [id number] Rohith Archer DO [address], [place] [address] Health Maintenance Due Date Last Done Comments Pap Smear 1981 Zoster (Shingles) Vaccine (1 of 2) 2010 COVID-19 Vaccine (2023-2 5 season) 2024 04/23/2021, 10/18/2020, 09/20/2020 Mammogram 10/05/2024 10/06/2023 Influenza Vaccine 01/23/2025 03/22/2019 Adult BMI Screening 02/21/2025 02/22/2024 Depression Screening 02/21/2025 02/22/2024 Tobacco Screening 02/23/2025 02/24/2024 DTaP,Tdap and Td Vaccines (2 - Td or Tdap) 03/22/2029 03/22/2019 Colonoscopy 01/14/2033 01/14/2023 Medical Devices Not on file Procedures Procedure Name Priority Date/Time Associated Diagnosis Comments MAMM SCREENING BILATERAL W CAD Routine 10/06/2023 Encounter for screening mammogram for malignant neoplasm of breast HM COLONOSCOPY Routine 01/14/2023 11:28 AM EDT from Last 3 Months or Most Recently Relevant to Health Maintenance Results * Mammography screening bilateral with CAD (10/06/2023) Anatomical Region Laterality Modality Breast Bilateral Mammography 10/06/2023 us Rohith Archer DO IMG MAMMOGRAPHY ORDERABLES F inal Result * HM COLONOSCOPY (01/14/2023 11:28 AM EDT) us Scanning Provider External HEALTH MAINTENANCE Fi nal Result MANUALLY TRANSCRIBED RESULTS from Last 3 Months or Most Recently Relevant to Health Maintenance Insurance [employer] Care Teams Flight Engineer Inspector Relationship Specialty Start Date End Date Rohith Archer DO [address] [place] [address] PCP - General Family Medicine 06/02/22
--- OUTSIDE RECORDS SUMMARY | 2024-12-15 15:36 | XMS_ITS | Encounter Summary ---
Author Organization [employer] Address [facility][id number] [address] [place] [address] Care Team Providers Care Compounder Helper Name Role Phone GianniRohith Mario KAPOOR Primary Care Provider Encounter Details Date Type Department Care Team (Late st Contact Info) Description 03/04/2024 Orders Only [facility] - Family Medicine [address] [place] [address] Cami Phillip CMA Lung nodule, solitary Social History Tobacco Use Types Packs/Day Years Used Date Smoking Tobacco: Former Cigarettes 1 47 0 11/17/1973 - 11/28/2020 Smokeless Tobacco: Never Alcohol Use Standard Drinks/Week Comments Never 0 (1 standard drink = 0.6 oz pur e alcohol) [facility] Utilities Answer Date Recorded In the past 12 months has [email or web address] electric, gas, oil, or water company threatened [...] often do you attend chur ch or taoism services? Never 08/25/2022 Do you belong to any clubs o r organizations such as congregational groups, unions, fraternal or athletic groups, or [...] Answer Date Recorded Total Score 0 02/22/2024 [facility] [place] of Occupat ional Health - Occupational Stress [...] Recorded Do you need help finding a [facility] and/or a training program? [...] - Family Medicine [address] [place] [address] Rohith Archer DO [address], [place] [address] documented as of this encounter Procedures Procedure Name Priority Date/Time Associated Diagnosis Comments CT CHEST WO CONT Routine 03/07/2024 3:21 PM EDT CREATININE, SERUM Routine 03/03/2024 Lung nodule, solitary documented in this encounter Results * CT chest without contrast (03/07/2024 3:21 PM EDT) Anatomical Region Laterality Modality Body, Lung, Chest, Body Covera N/A C omputed Tomography us Scanning Provider External IMG CT ORDERABLES Fin al Result * Creatinine includes GFR, serum (03/03/2024) External Creatinine 0.90 MANUALLY TRANSCRIBED RESULTS External Gfr Amer >60 MANUALLY TRANSCRIBED RESULTS External Gfr Non Amer >60 MANUALLY TRANSCRIBED RESULTS 03/03/2024 Rohith Archer DO LAB BLOOD ORDERABLES Final R esult MANUALLY TRANSCRIBED RESULTS documented in this encounter Visit Diagnoses Diagnosis Lung nodule, solitary documented in this encounter Additional Health Concerns Assessment Noted Time PHQ-9 Depression Total Score: 0 02/22/20 24 11:04 AM EDT documented as of this encounter Care Teams Compounder Helper Relationship Specialty Start Date End Date Rohith Archer DO [address] [place] [address] PCP - General Family Medicine 06/02/22 documented as of this encounter
--- OUTSIDE RECORDS SUMMARY | 2024-12-15 15:36 | XMS_ITS | Encounter Summary ---
Author Organization [employer] tem Address [facility] [id number] [address] [place] [address] Care Team Providers Care Automobile Rental Agent Name Role Phone GianniRohith Mario KAPOOR Primary Care Provider [phone]- [phone] Encounter Details Date Type Department Care Team (Late st Contact Info) Description 07/06/2023 Telephone [facility] - Family Medicine [address] [place] [address] Cami Phillip CMA Social History Tobacco Use [...] often do you attend chur ch or jainism services? Never 08/25/2022 Do you belong to any clubs o r organizations such as restorationist groups, unions, fraternal or athletic groups, or [...] Answer Date Recorded Total Score 0 06/15/2023 [facility] - Occupational Stress Questionnaire Answer Date [...] Recorded Do you need help finding a [facility] career [facility] and/or a training program? No 08/25/2022 Hunger Screening Answer Date Recorded Within the past 12 months we worried whether our food would run out before we got money to buy more. Never True 06/15/2023 Within the past 12 months th e food we bought just didn't last and we didn't have money to get more. Never True 06/15/2023 Comments No Sex and Gender Information Value Date Recorded Sex Assigned at Not on file Legal Sex Female 7:32 PM EDT Gender Identity Not on file Sexual Orientation Not on file documented as of this encounter Miscellaneous Notes * Telephone Encounter - Cami Phillip CMA - 07/06/2023 11:16 AM EST This patient is now scheduled for her Stress test on 07/17 at 7:30am * Telephone Encounter - Nam Salinas DO - 07/06/2023 11:16 AM EST Message noted. documented in this encounter Plan of Treatment Upcoming Encounters Date Type Department Care Team (Late st Contact Info) Description 01/19/2025 3:15 PM EDT Office Visit [facility] - Family Medicine [address] [place] [address] Rohith Archer DO [address] [facility] [address] documented as of this encounter Visit Diagnoses Not on filedocumented in this encounter Additional Health Concerns Assessment Noted Time PHQ-9 Depression Total Score: 0 06/15/19 24 3:31 PM EST documented as of this encounter Care Teams Automobile Rental Agent Relationship Specialty Start Date End Date Rohith Archer DO [address] [facility] [address] PCP - General Family Medicine 06/02/22 documented as of this encounter
--- OUTSIDE RECORDS SUMMARY | 2024-12-15 15:36 | XMS_ITS | Encounter Summary ---
Author Organization [employer] [facility] tem Address [facility] [id number] [address] [place] [address] Care Team Providers Care Scanning Clerk Name Role Phone Rohith Archer DO Primary Care Provider [phone]- [phone] Encounter Details Date Type Department Care Team (Late st Contact Info) Description 01/22/2023 Orders Only [facility] - Family Medicine [address] [place] [address] Rohith Archer DO [address] [place] [place] [address] Social History Tobacco Use Types Packs/Day Years [...] often do you attend chur ch or jew services? Never 08/25/2022 Do you belong to any clubs o r organizations such as amish groups, unions, fraternal or athletic groups, or [...] PHQ-2 Answer Date Recorded Total Score 0 12/08/2022 [facility]at ional [facility] - Occupational Stress [...] Recorded Do you need help finding a [facility] career center and/or a training program? No 08/25/2022 Hunger Screening Answer Date Recorded Within the past 12 months we worried whether our food would run out before we got money to buy more. Never True 12/08/2022 Within the past 12 months th e food we bought just didn't last and we didn't have money to get more. Never True 12/08/2022 Comments Unknown Sex and Gender Information Value [...] - Family Medicine [address] [place] [address] Rohith Archer DO [address], [place] [address] documented as of this encounter Procedures Procedure Name Priority Date/Time Associated Diagnosis Comments HM COLONOSCOPY Routine 01/14/2023 11:28 AM EDT documented in this encounter Results * HM COLONOSCOPY (01/14/2023 11:28 AM EDT) us Scanning Provider External HEALTH MAINTENANCE Fi nal Result MANUALLY TRANSCRIBED RESULTS documented in this encounter Visit Diagnoses Not on filedocumented in this encounter Additional Health Concerns Assessment Noted Time PHQ-9 Depression Total Score: 0 12/09/19 7:00 AM EDT documented as of this encounter Care Teams Scanning Clerk Relationship Specialty Start Date End Date Rohith Archer DO [address] [facility] [place], [place] [address] PCP - General Family Medicine 06/02/22 documented as of this encounter
--- OUTSIDE RECORDS SUMMARY | 2024-12-15 15:36 | XMS_ITS | Encounter Summary ---
Author Organization [employer] tem Address [id number] [address] [place] [address] Care Team Providers Care Living Supervisor Name Role Phone GianniRohith Mario KAPOOR Primary Care Provider Encounter Details Date Type Department Care Team (Late st Contact Info) Description 07/28/2023 Orders Only [facility] - Family Medicine [address] [place] [address] Anais Muñoz, GAS MAKER-DIRECTOR RETIREMENT [address] [place] [address] Social History Tobacco Use Types Packs/Day Years [...] any clubs o r organizations such as scientologist groups, unions, fraternal or athletic groups, or [...] Answer Date Recorded Total Score 0 07/31/2023 [facility] - Occupational Stress [...] Recorded Do you need help finding a [facility] career center and/or a training [...] - Family Medicine [address] [place] [address] Rohith Archer DO [address] [facility] [address] documented as of this encounter Visit Diagnoses Not on filedocumented in this encounter Additional Health Concerns Assessment Noted Time PHQ-9 Depression Total Score: 0 06/15/19 24 3:31 PM EST documented as of this encounter Care Teams Living Supervisor Relationship Specialty Start Date End Date Rohith Archer DO [address] [facility] [place] [address] PCP - General Family Medicine 06/02/22 documented as of this encounter
--- OUTSIDE RECORDS SUMMARY | 2024-12-15 15:36 | XMS_ITS | Encounter Summary ---
Author Organization [employer] s tem Address [id number] [address] [place] [address] Care Team Providers Care Regional Truck Driver Name Role Phone GianniRohith Mario KAPOOR Primary Care Provider [phone]- [phone] Encounter Details Date Type Department Care Team (Late st Contact Info) Description 06/19/2023 Telephone [facility] - Family Medicine [address] [place] [address] Cami Phillip CMA Social History Tobacco Use [...] often do you attend chur ch or sabianism services? Never 08/25/2022 Do you belong to any clubs o r organizations such as presybeterian groups, unions, fraternal or athletic groups, or [...] Answer Date Recorded Total Score 0 06/15/2023 [facility] - Occupational Stress Questionnaire Answer Date [...] Recorded Do you need help finding a [facility] career [facility] and/or a training program? [...] Telephone Encounter - Cami Phillip CMA - 06/19/2023 9:22 AM EST This patient is scheduled for her Stress Test on Jun 29 at 8:15am. documented in this encounter Plan of Treatment Upcoming Encounters Date Type Department Care Team (Late st Contact Info) Description 01/19/2025 3:15 PM EDT Office Visit [facility] - Family Medicine [address] [place] [address] Rohith Archer DO [address] [place] [address] documented as of this encounter Visit Diagnoses Not on filedocumented in this encounter Additional Health Concerns Assessment Noted Time PHQ-9 Depression Total Score: 0 06/15/19 24 3:31 PM EST documented as of this encounter Care Teams Regional Truck Driver Relationship Specialty Start Date End Date Rohith Archer DO [address] [place] [address] PCP - General Family Medicine 06/02/22 documented as of this encounter
--- OUTSIDE RECORDS SUMMARY | 2024-12-15 15:36 | XMS_ITS | Encounter Summary ---
Author Organization [employer] [facility] tem Address [id number] [address] [place] [address] Care Team Providers Care Tire Stripper Name Role Phone Rohith Archer DO Primary Care Provider [phone]- [phone] Encounter Details Date Type Department Care Team (Late st Contact Info) Description 08/19/2022 [facility]phone [facility] [address] [place] [address] Jocelyn Birch CMA Social History Tobacco Use Types Packs/Day [...] encounter Miscellaneous Notes * Telephone Encounter - Jocelyn Birch CMA - 08/19/2022 9:27 AM EDT Pt called in, she was very upset. Said she fasted and went to [facility] for her labs, and they had no order there. She was also late for work, due to the confusion. I allowed pt to know she can fast 4 hours prior to her appointment and she will get drawn when she is here. * Telephone Encounter - Rohith Archer DO - 08/19/2022 9:27 AM EDT The message was for [facility], no pola documented in this encounter Plan of Treatment Upcoming Encounters Date Type Department Care Team (Late st Contact Info) Description 01/19/2025 3:15 PM EDT Office Visit [facility] - Family Medicine [address] [place] [address] Rohith Archer DO [address], [place] [address] documented as of this encounter Visit Diagnoses Not on filedocumented in this encounter Care Teams Tire Stripper Relationship Specialty Start Date End Date Rohith Archer DO [address] [place] [address] PCP - General Family Medicine 06/02/22 documented as of this encounter
--- OUTSIDE RECORDS SUMMARY | 2024-12-15 15:36 | XMS_ITS | Encounter Summary ---
Author Organization [employer] [facility] tem Address [facility] [id number] [address] [place] [address] Care Team Providers Care Business Librarian Name Role Phone JulioRohith gramajo Mario KAPOOR Primary Care Provider Encounter Details Date Type Department Care Team (Late st Contact Info) Description 12/22/2022 Telephone [facility] - Family Medicine [address] [place] [address] Ruba Ortiz, TITLE I INSTRUCTIONAL ASSISTANT-TECHNICAL SERVICE ENGINEER [address] LEFT PM 11/21/24 [place] [id number] Social History Tobacco Use Types Packs/Day Years [...] Answer Date Recorded Total Score 0 12/08/2022 [facility] of Occupat ional Health [...] Recorded Do you need help finding a [facility] career center and/or a training program? [...] * Telephone Encounter - Aleyda Ram - 12/22/2022 1:12 PM EDT Patient called and she wanted to let you know that the steroids worked and her ear is feeling better * Telephone Encounter - EMELI Gilliam - 12/22/2022 1:12 PM EDT That is always good to hear documented in this encounter Plan of Treatment Upcoming Encounters Date Type Department Care Team (Late st Contact Info) Description 01/19/2025 3:15 PM EDT Office Visit [facility] - Family Medicine [address] [place] [address] Rohith Archer DO [address] [place] [address] documented as of this encounter Visit Diagnoses Not on filedocumented in this encounter Additional Health Concerns Assessment Noted Time PHQ-9 Depression Total Score: 0 12/09/19 23 7:00 AM EDT documented as of this encounter Care Teams Business Librarian Relationship Specialty Start Date End Date Rohith Archer DO [address] [place] [address] PCP - General Family Medicine 1/9/23 documented as of this encounter
--- OUTSIDE RECORDS SUMMARY | 2024-12-15 15:36 | XMS_ITS | Encounter Summary ---
Author Organization [employer] tem Address [facility] [id number] [address] [place] [address] Care Team Providers Care Dandy Tender Name Role Phone GianniRohith Mario KAPOOR Primary Care Provider Encounter Details Date Type Department Care Team (Late st Contact Info) Description 06/22/2023 Orders Only [facility] - Family Medicine [address] [place] [address] Anais Muñoz, GASOLINE LOCOMOTIVE CRANE OPERATOR-LEATHER TOOLER [address] [place] [address] Social History Tobacco Use Types Packs/Day Years [...] often do you attend chur ch or sikh services? Never 08/25/2022 Do you belong to any clubs o r organizations such as congregation groups, unions, fraternal or athletic groups, or [...] Answer Date Recorded Total Score 0 06/15/2023 [facility]at ional Health [...] Recorded Do you need help finding a [facility] career center and/or a training program? [...] - Family Medicine [address] [place] [address] Rohith Archer DO [address] [facility] [place] [address] documented as of this encounter Visit Diagnoses Not on filedocumented in this encounter Additional Health Concerns Assessment Noted Time PHQ-9 Depression Total Score: 0 06/15/19 24 3:31 PM EST documented as of this encounter Care Teams Dandy Tender Relationship Specialty Start Date End Date Rohith Archer DO [address] [facility] [place] [address] PCP - General Family Medicine 06/02/22 documented as of this encounter
--- OUTSIDE RECORDS SUMMARY | 2024-12-15 15:36 | XMS_ITS | Encounter Summary ---
Author Organization [employer] Address [facility] [id number] [address] [place] [address] Care Team Providers Care Police Commanding Officer Name Role Phone GianniRohith Mario KAPOOR Primary Care Provider Encounter Details Date Type Department Care Team (Late st Contact Info) Description 12/17/2022 Orders Only [facility] - Family Medicine [address] [place] [address] Cami Phillip CMA Colon cancer screening Social History Tobacco Use Types Packs/Day Years [...] often do you attend chur ch or religion services? Never 08/25/2022 Do you belong to any clubs o r organizations such as uatsdin groups, unions, fraternal or athletic groups, or [...] Answer Date Recorded Total Score 0 12/08/2022 [facility] Occupat ional Health - Occupational Stress [...] Do you need help finding a l al career center and/or a training program? No [...] Medicine - Family Medicine [address] [place] [address] Rohith Archer DO [address], [facility] [address] documented as of this encounter Procedures Procedure Name Priority Date/Time Associated Diagnosis Comments AMB REFERRAL TO COLONOSCOPY Routine 12/17/2022 5:50 PM EDT Colon cancer screening documented in this encounter Results * Ambulatory referral to Colonoscopy (12/17/2022 5:50 PM EDT) us Rohith Archer DO OUTPATIENT REFERRAL ORDERABL ES Final Result MANUALLY TRANSCRIBED RESULTS documented in this encounter Visit Diagnoses Diagnosis Colon cancer screening Special screening for malignant neoplasms, colon documented in this encounter Additional Health Concerns Assessment Noted Time PHQ-9 Depression Total Score: 0 12/09/19 7:00 AM EDT documented as of this encounter Care Teams Police Commanding Officer Relationship Specialty Start Date End Date Rohith Archer DO [address] [facility] [place] [address] PCP - General Family Medicine 06/02/22 documented as of this encounter
== END 2024-12-15 15:33 | disposition home or self-care (01) ==
LOC: MAMMO 15:33
PROVIDERS: PCP Family Medicine; Visit Provider Family Medicine
DX: Z12.31 Encounter for screening mammogram for malignant neoplasm of breast (principal); Z80.1 Family history of malignant neoplasm of trachea, bronchus and lung
CPT/HCPCS: 77063; 77067

== ENCOUNTER 2025-01-13 16:40 | Emergency (ER) | payer OTHER, SELFPAY ==
[2025-01-13] VITALS (17 sets, daily range): BP systolic 141–157; BP diastolic 84–114; PULSE 74–90; TEMP 36.8; O2SAT 93; BMI 24.8
--- OUTSIDE RECORDS SUMMARY | 2025-01-13 16:54 | XMS_ITS | CCD ---
Author Organization [facility] Inform ion Partnership [facility] Care Team Providers Care Lube Attendant Name Role Phone Janice Rahman Unavailable DO Rohith Archer Primary Care Provider JETHRO Rahman Attending Provider [phone] Janice Rahman Attending Unavailable Janice Rahman Admitting Unavailable FurlongRohith Primary Care Unavailable FURLONG, DR ROHITH Martin Admitting Unavailable FURLONG, DR ROHITH Martin Attending Unavailable FURLONG, DR ROHITH Martin Consulting Unavailable FURLONG, DR ROHITH Martin Primary Care Unavailable WASHINGTON, DR LOLIS Haider Consulting Unavailable FURLONG, DR ROHITH Martin Primary Care Unavailable FURLONG, DR ROHITH Martin Admitting Unavailable FURLONG, DR ROHITH Martin Attending Unavailable FURLONG, DR ROHITH Martin Consulting Unavailable ZIEBER, DR GABRIEL Toro Consulting Unavailable FURLONGROHITH Referring Unavailable NILLRohit Attending Unavailable NILLRohit Attending Unavailable SARAY GEORGE Attending Unavailable ANAIS MUÑOZ Referring Unavailable FURLONG, ROHITH Martin Primary Care Unavailable SARAY GEORGE Attending Unavailable ANAIS MUÑOZ Referring Unavailable FURLONG, ROHITH Martin Primary Care Unavailable FURLONG, ROHITH Martin Referring Unavailable FURLONG, ROHITH Martin Primary Care Unavailable FURLONG, ROHITH Martin Attending Unavailable FURLONGROHITH Referring Unavailable FURLONG, ROHITH Martin Primary Care Unavailable FURLONG, ROHITH Martin Attending Unavailable FURLONG, ROHITH Martin Referring Unavailable FURLONG, ROHITH Martin Primary Care Unavailable ANAIS MUÑOZ Attending Unavailable FURLONGROHITH Referring Unavailable FURLONG, ROHITH Martin Primary Care Unavailable FURLONG, ROHITH Martin Attending Unavailable FURLONG, ROHITH Martin Referring Unavailable FURLONG, ROHITH Martin Primary Care Unavailable Alammar MD, J I Attending [facility] Rohith Leandro [facility] Tramaine nava [place] DO Rohith Leandro [facility] Tramaine Ozuna MD, J I Attending [facility] Rohith Leandro [facility] Tramaine Ozuna MD, J I Attending [facility] Rohith Leandro [facility] Tramaine Ozuna MD, J I Admitting Bhupinder Ozuna MD, J I Attending [facility] Tramaine Ozuna MD, J I Attending [facility] Tramaine Ozuna MD, J I Attending Bhupinder Ozuna MD, J I Attending [facility] Tramaine Ozuna MD, J I Attending [facility] Tramaine Ozuna MD, J I Attending [facility] Tramaine nava [facility] Rohith [facility] Tramaine Ozuna MD, J I Attending [facility] Rohith KAPOOR Primary Care Provider [phone] Allergies Allergy Classification Reported Allergen(s) Allergy Type Date of Onset Reaction(s) Facility (1 source) Unable to Assess Drug allergy (disorder) [address] [place] [address] Repository (1 source) No Known Medication Allergies; Translations: [No Known Medication Allergies] Propensity to adverse reactions (disorder) [facility] Repository Medications Current Medications Medication Drug Class(es) Dates Sig (Normalized) Sig (Original) azithromycin 250 mg oral tablet (1 source) Macrolide Antimicrobial Start: 11-30-2021 Azithromycin 250 MG 2 tablet on the first day, then 1 tablet daily for 4 days Orally Once a day for 5 day(s) Nov, Active calcium polycarbophil 625 mg oral tablet (9 sources) Start: 12-16-2022 polycarbophil (FIBER, CALCIUM POLYCARBOPHIL,) 625 mg tablet Take 1 tablet (625 mg total) by mouth. 12/16/2022 Active cyclobenzaprine hydrochloride 5 mg oral tablet (1 source) Muscle Relaxant Start: 02-14-2019 take 1 tablet by mouth every eight hours Cyclobenzaprine HCl 5 MG 1 tablet as needed Orally Three times a day Jan, Active predniSONE 20 mg oral tablet (2 sources) Start: 05-31-2022 take 1 tablet by mouth every twelve hours predniSONE 20 MG 1 tablet Orally 2 times a day for 5 day(s) May, Active Start: 11-30-2021 take 1 tablet by espinoza th every twelve hours predniSONE 20 MG 1 tablet Orally 2 times a day for 5 day(s) Nov, Active vit C,L-Dq-tvcab-lutein-zeax an (PRESERVISION AREDS-2) 250-90-40-1 mg capsule (2 sources) vit C,E-Zn-coppr -lutein-zeaxan (PRESERVISION AREDS-2) 250-90-40-1 mg capsule Taking,but holding for surgery Active Completed/Discontinued Medications Medication Drug Class(es) Dates Sig (Normalized) Sig (Original) [id number] 200 actuat albuterol 0.09 mg/actuat metered dose inhaler (8 sources) beta2-Adrenergic Agonist Start: 04-23-2023 End: 02-22-2024 take 2 puff(s) by inhalation every six hours as needed albuterol (PROVENTIL HFA;VENTOLIN HFA) 90 mcg/actuation inhaler Inhale 2 puffs every 6 (six) hours as needed. 04/23/2023 02/22/2024 Discontinued (Therapy completed) atorvastatin 20 mg oral tablet (11 sources) HMG-CoA Reductase Inhibitor Start: 08-25-2022 End: 09-01-2023 take 1 tablet by mouth in the morning atorvastatin (LIPITOR) 20 mg tablet Indications: Mixed hyperlipidemia TAKE 1 TABLET (20 MG TOTAL) BY MOUTH IN THE MORNING 90 tablet 1 05/30/2023 09/01/2023 Discontinued (Side effects) Atorvastatin Asher cium Active celecoxib 200 mg oral capsule (2 sources) Nonsteroidal Anti-inflammatory Drug Start: 09-01-2023 End: 02-22-2024 take 1 capsule by mouth in the morning, then take 1 capsule by mouth at bedtime celecoxib (CeleBREX) 200 mg capsule Take 1 capsule (200 mg total) by mouth in the morning and 1 capsule (200 mg total) before bedtime. 60 capsule 2 09/01/2023 02/22/2024 Discontinued (Therapy completed) erythromycin 500 mg delayed release oral tablet (1 source) Macrolide, Macrolide Antimicrobial Start: 02-05-2024 End: 02-22-2024 erythromycin (E-MYCIN) 500 mg tablet,delayed release (DR/EC) TAKE 1 TAB AT 7PM, 9PM, AND 11PM THE NIGHT PRIOR TO SURGERY 02/05/2024 02/22/2024 Discontinued (Therapy completed) 120 actuat formoterol fumarate 0.0048 mg/actuat / glycopyrrolate 0.009 mg/actuat metered dose inhaler (10 sources) beta2-Adrenergic Agonist End: 02-22-2024 take 2 puff(s) by inhalation in the morning glycopyrrolate-f ormoteroL (BEVESPI AEROSPHERE) 9-4.8 mcg HFA aerosol inhaler Inhale 2 puffs in the morning and 2 puffs before bedtime. 02/22/2024 Discontinued (Patient Stopped On Own) Bevespi Aerosphe re 9-4.8 MCG/ACT INHALE 2 PUFFS INTO THE LUNGS TWICE A DAY FOR 30 DAYS Inhalation for 30 Days Active magnesium sulfate 0.0277 meq/ml / potassium sulfate 0.0374 meq/ml / sodium sulfate 0.257 meq/ml oral solution (1 source) Start: 02-04-2024 End: 02-22-2024 sodium,potassium,mag sulfates (SUPREP) 17.5-3.13-1.6 gram recon soln USE DIRECTED PER PACKAGING 02/04/2024 02/22/2024 Discontinued (Therapy completed) meloxicam 15 mg oral tablet (6 sources) Nonsteroidal Anti-inflammatory Drug Start: 08-07-2023 End: 09-01-2023 take 1 tablet by mouth in the morning meloxicam (MOBIC) 15 mg tablet Take 1 tablet (15 mg total) by mouth in the morning. 30 tablet 2 08/07/2023 09/01/2023 Discontinued (Therapy completed) Start: 06-17-2023 End: 07-31-2023 take 1 tablet by mouth in the morning meloxicam (MOBIC) 15 mg tablet Take 1 tablet (15 mg total) by mouth in the morning for 15 days. 15 tablet 0 06/17/2023 07/02/2023 Active methylPREDNISolone 4 mg oral tablet (6 sources) Corticosteroid Start: 07-31-2023 End: 09-01-2023 take 1 tablet by mouth in the morning methylPREDNISolone (MEDROL, TITUS,) 4 mg tablet Indications: Acute pain of left shoulder Take 1 tablet (4 mg total) by mouth in the morning. follow package directions. 21 tablet 07/31/2023 09/01/2023 Discontinued (Therapy completed) Start: 12-08-2022 End: 06-15-2023 methylPREDNISolone (MEDROL, TITUS,) [...] at night with food Orally Jan, Active neomycin sulfate 500 mg oral tablet (1 source) Aminoglycoside Antibacterial Start: 02-04-2024 End: 02-22-2024 neomycin (MYCIFRADIN) 500 mg tablet TAKE TWO TABS AT 7PM, 9PM, AND 11PM THE NIGHT PRIOR TO SURGERY 02/04/2024 02/22/2024 Discontinued (Therapy completed) psyllium 520 mg oral capsule (3 sources) End: 09-01-2023 psyllium (METAMUCIL) 0.52 gram capsule Take by mouth daily. 09/01/2023 Discontinued (Therapy completed) ubidecarenone 30 mg oral capsule (8 sources) End: 02-22-2024 take 10 capsules by mouth once in the morning coenzyme Q10 30 mg capsule Take 200 mg by mouth in the morning. 02/22/2024 Discontinued (Therapy completed) Problems Active Problems Problem Classification Problem Date Documented Da te Episodic/Chronic Anal and rectal conditions (3 sources) Rectal prolapse; Translations: [Rectal prolapse] Onset: 02-26-2024 Episodic Cardiac dysrhythmias (2 sources) Ventricular premature depolarization; Translations: [Ventricular premature complex] Onset: 07-17-2023 07-01-2023 Chronic Chronic obstructive pulmonary disease and bronchiectasis (3 sources) Chronic obstructive lung disease; Translations: [Chronic obstructive pulmonary disease, unspecified] 02-22-2024 Chronic Disorders of lipid metabolism (10 sources) Mixed hyperlipidemia; Translations: [Mixed hyperlipidemia] Onset: 06-15-2023 05-30-2023 Chronic Immunizations and screening for infectious disease (3 sources) Encounter for screening for other viral diseases; Translations: [Contact with and (suspected) exposure to other viral communicable diseases] Onset: 04-17-2021 Resolved: 04-17-2021 Episodic Pleurisy; pneumothorax; pulmonary collapse (1 source) Pleurisy Episodic Retinal detachments; defects; vascular occlusion; and retinopathy (9 sources) 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; Translations: [Exudative age-related macular degeneration, right eye, stage unspecified] Onset: 07-03-2020 06-15-2023 Chronic Unclassified (1 source) Pre-op Exam Onset: 02-22-2024 Unclassified (1 source) Annual Exam Onset: 09-01-2023 Past or Other Problems Problem Classification Problem Date Documented Da te Episodic/Chronic Mood disorders (10 sources) Mood disorders Onset: 12-08-2022 Resolved: 02-22-2024 12-08-2022 Nonspecific chest pain (8 sources) Chest pain, unspecified; Translations: [Other chest pain] Onset: 05-31-2022 Episodic Other bone disease and musculoskeletal deformities (1 source) Segmental and somatic dysfunction of thoracic region; Translations: [Segmental and somatic dysfunction of thoracic region] Onset: 09-01-2023 Episodic Other bone disease and musculoskeletal deformities (1 source) Somatic dysfunction of thoracic region; Translations: [Segmental and somatic dysfunction of thoracic region] 09-01-2023 Episodic Other connective tissue disease (1 source) Muscle pain; Translations: [Myalgia, unspecified site] 09-01-2023 Episodic Other lower respiratory disease (1 source) Cough Onset: 06-15-2023 Episodic Other lower respiratory disease (1 source) Rib pain; Translations: [Pleurodynia] 08-07-2023 Episodic Other lower respiratory disease (1 source) Solitary nodule of lung; Translations: [Solitary pulmonary nodule] 02-24-2024 Episodic Other non-traumatic joint disorders (2 sources) Pain in left shoulder; Translations: [Pain in joint, shoulder region] Onset: 07-31-2023 07-31-2023 Episodic Other non-traumatic joint disorders (1 source) Shoulder pain Onset: 07-31-2023 Episodic Other nutritional; endocrine; and metabolic disorders (10 sources) Overweight; Translations: [Overweight] Onset: 08-25-2022 Resolved: 02-22-2024 08-25-2022 Episodic Other screening for suspected conditions (not mental disorders or infectious disease) (2 sources) Encounter for screening mammogram for malignant neoplasm of breast; Translations: [Patient encounter status] Onset: 09-01-2023 09-01-2023 Episodic Screening and history of mental health and substance abuse codes (16 sources) Personal history of nicotine dependence; Translations: [Ex-cigarette smoker] Onset: 08-25-2022 Episodic Spondylosis; intervertebral disc disorders; other back problems (4 sources) Cervicalgia; Translations: [CERVICALGIA] Onset: 10-12-2021 Episodic Viral infection (1 source) COVID-19 Onset: 11-30-2021 Resolved: 11-30-2021 Results Test Name Value Interpretation Reference Range Facility Surgery Office/Clinic Noteon 03-24-2024 Surgery Office/Clinic Note Chief Complaint Follow up History of Present Illness 63 year old female, patient of Dr. Archer Patient is s/p robotic sigmoid colectomy with rectopexy 02-26-2024. Followed up 03-10-2024, doing well. Was to return to work this coming Thursday03-28-2024, but has some concerns due to her bowel habits. Here for recheck. Review of Systems Please see HPI for ROS items that are relevant to today's office visit complaint. Physical Exam Vitals & Measurements HR: 86 (Peripheral) BP: 102/70 HT: 160 cm WT: 63.7 kg (Estimated) WT: 63.7 kg (Dosing) BMI: 24.88 General: well nourished, no acute distress. Eye: normal conjunctiva HEENT: Normocephalic, no scleral icterus Neck: supple, non-tender, no JVD, no lymphadenopathy Lungs: Clear to auscultation, non-labored respiration Heart: normal rate, regular rhythm, no murmur, gallop or edema. Abdomen: soft, non-tender, non-distended, normal bowel sounds, no masses. Musculoskeletal: normal range of motion and strength, no tenderness or swelling. Skin: skin is warm, dry and pink Neurologic: awake, alert, and oriented x3 Psychiatric: cooperative, appropriate mood and affect Additional Vitals BP Position/Location: Sitting, Left arm Assessment/Plan 1. Surgery follow-up The patient is here today to follow-up after a sigmoid resection with rectopexy. She is doing very well. Minimal discomfort in one of the port sites in the right lower quadrant, the 12 mm port for the stapler. No evidence of any hernias. The patient denies any prolapse with bowel movements. Her bowel movements are not constipated. She does have some urgency and she is concerned about going back to work too soon. She is definitely improving day after day. She would like to wait couple more weeks prior to going back to work due to inability to go to the bathroom very frequently and promptly. The patient will be rechecked in few weeks. She we will extend her time off until 04/11/2024. Medical Decision Making Chronic conditions NOT treated [...] with the Patient I have personally spent 12[] minutes on this date, directly related to today's patient visit, including pre and post visit work, for this date of service. Time listed does not include time spent on separately billable services. Problem List/Past Medical History Ongoing Arthritis Back pain COPD (chronic obstructive pulmonary disease) Diverticulosis Frequency of urination Macular degeneration Raspy voice Smokers' cough SOBOE (shortness of breath on exertion) Historical Rectal prolapse Tubular adenoma x2 (2022) Procedure/Surgical History Forceps extraction of tooth Tubal ligation Tonsillectomy Cholecystectomy Colonoscopy (01/14/2023) Resection Sigmoid Colon Robotic X/Xi (02/26/2024) Rectopexy Robotic X/Xi (02/26/2024) Medications PreserVision oral tablet, 1 tabs, Oral, Daily Allergies No Known Allergies Social History Alcohol Never Employment/School laborer steel handling, 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 Exercise Home/Environment Lives with Alone. Living situation: Home/Independent. Nutrition/Health Regular, Caffeine intake amount: Coffee Q AM-. Sleeping concerns: No. Substance Abuse Denies All Tobacco Former smoker, quit more than 1 year ago Use:. Family History Heart disease: Father. Lung cancer: Mother. Family Member(s) Relationship: Mother, Age: Unknown, Cause: Lung CA Health Maintenance Colon 01-14-2023 Mamm 2023 Electronically signed by Eveline Ozuna MD, I 03/24/24 14:35 EDT Electronically signed by Angélica Cortez 03/24/2024 08:42 EDT Normal [facility] Surgery Office/Clinic Noteon 03-10-2024 Surgery Office/Clinic Note Chief Complaint Post op History of Present Illness 63 year old female, patient of Dr. Archer Patient presents for post-op bowel resection. The procedure was sigmoid colectomy with rectopexy. The date of procedure was 02-26-2024. Diagnosis Sigmoid colon, sigmoid resection: Segment of benign sigmoid colon, removed for repair of rectal prolapse. Review of Systems Please see HPI for ROS items that are relevant to today's office visit complaint. Physical Exam Vitals & Measurements HR: 94 (Peripheral) BP: 122/85 HT: 160 cm WT: 63.7 kg (Estimated) WT: 63.7 kg (Dosing) BMI: 24.88 Post op PE Afebrile, the vitals are within normal limits. Operative site is healing well, the wound is nicely approximated without signs of infection, drainage, or any other unexpected findings. Additional Vitals BP Position/Location: Sitting, Right arm Assessment/Plan 1. Surgery follow-up The patient is here to follow-up after surgery. Her resection was 13 days ago. She is doing very well. She did report some pressure on her bladder and had a UA which was negative and a CBC which was within normal limits. The patient reports that the sensation is intermittent. She currently is not having any issues. She is tolerating diet and having daily bowel movements. She is not requiring any pain medicines. All of her incisions are clean and dry and intact and healing as expected. Activities limitations and dietary restrictions were discussed with the patient. She may resume all normal activities as of 03/28/2024. She is no longer experiencing any rectal prolapse. She has no difficulty with bowel movements. Medical Decision Making Chronic conditions NOT treated [...] with the Patient I have personally spent [12] minutes on this date, directly related to today's patient visit, including pre and post visit work, for this date of service. Time listed does not include time spent on separately billable services. Problem List/Past Medical History Ongoing Arthritis Back pain COPD (chronic obstructive pulmonary disease) Diverticulosis Frequency of urination Macular degeneration Raspy voice Rectal prolapse Smokers' cough SOBOE (shortness of breath on exertion) Historical Tubular adenoma x2 (2022) Procedure/Surgical History Forceps extraction of tooth Tubal ligation Tonsillectomy Cholecystectomy Colonoscopy (01/14/2023) Resection Sigmoid Colon Robotic X/Xi (02/26/2024) Rectopexy Robotic X/Xi (02/26/2024) Medications PreserVision oral tablet, 1 tabs, Oral, Daily Allergies No Known Allergies Social History Alcohol Never Employment/School laborer steel handling, 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 Exercise Home/Environment Lives with Alone. Living situation: Home/Independent. Nutrition/Health Regular, Caffeine intake amount: Coffee Q AM-. Sleeping concerns: No. Substance Abuse Denies All Tobacco Former smoker, quit more than 1 year ago Use:. Family History Heart disease: Father. Lung cancer: Mother. Family Member(s) Relationship: Mother, Age: Unknown, Cause: Lung CA Health Maintenance Colon 01-14-2023 Mamm 2023 Electronically signed by Eveline Ozuna MD, I 03/10/24 15:30 EDT Electronically signed by Angélica Cortez 03/03/2024 14:05 EDT Normal [facility] .eGFRon 02-28-2024 GFR/1.73 sq M.predicted MDRD (S/P/Bld) [Vol rate/Area] mL/min/{1.73_m2} Normal >=60 [facility] Comment on above: Result Comment: [facility] Laboratories have implemented the eGFR calculation [...] 1 Age = years Performed By: #### A SA #### [facility] (UNKNOWN) [address] [place] [address] CBC w/ Diffon 02-28-2024 Erythrocyte distribution width (RBC) [Ratio] 13.3 % Normal 11.6-14.8 [facility] Comment on above: Performed By: #### A SA #### [facility] (UNKNOWN) [address] [place] [address] Hematocrit (Bld) [Volume fraction] 36.8 % Normal 36.0-46.0 [facility] Comment on above: Performed By: #### A SA #### [facility] (UNKNOWN) [address] [place] [address] Hemoglobin (Bld) [Mass/Vol] 12.2 g/dL Normal 12.0-16.0 [facility] Comment on above: Performed By: #### A SA #### [facility] (UNKNOWN) [address] [place] [address] MCH (RBC) [Entitic mass] 30.8 pg Normal 27.0-35.0 [facility] Comment on above: Performed By: #### A SA #### [facility] (UNKNOWN) [address] [place] [address] MCHC 33.0 % Normal 31.0-37.0 [facility] Comment on above: Performed By: #### A SA #### [facility] (UNKNOWN) [address] [place] [address] MCV (RBC) [Entitic vol] 93.3 fL Normal 80.0-100.0 [facility] Comment on above: Performed By: #### A SA #### [facility] (UNKNOWN) [address] [place] [address] Platelet 296 x10*3/mcL Normal 150-450 [facility] Comment on above: Performed By: #### A SA #### [facility] (UNKNOWN) [address] [place] [address] Platelet mean volume (Bld) [Entitic vol] 7.8 fL Normal 6.7-10.6 [facility] Comment on above: Performed By: #### A SA #### [facility] (UNKNOWN) [address] [place] [address] RBC 3.95 x10*6/mcL Normal 3.80-5.20 [facility] Comment on above: Performed By: #### A SA #### [facility] (UNKNOWN) [address] [place] [address] WBC 8.4 x10*3/mcL Normal 4.5-11.0 [facility] Comment on above: Performed By: #### A #### [facility] (UNKNOWN) [address] [place] [address] CMPon 02-28-2024 Albumin [Mass/Vol] 3.4 g/dL Normal 3.2-4.9 [facility] Comment on above: Performed By: #### A CHRISTINE #### [facility] (UNKNOWN) [address] [place] [address] Albumin/Globulin [Mass ratio] 1.3 {ratio} Normal 1.1-2.2 [facility] Comment on above: Performed By: #### A CHRISTINE #### [facility] (UNKNOWN) [address] [place] [address] Alk Phos 54 IU/L Normal 32-91 [facility] Comment on above: Performed By: #### A CHRISTINE #### [facility] (UNKNOWN) [address] [place] [address] ALT [Catalytic activity/Vol] 24 U/L Normal 14-54 [facility] Comment on above: Performed By: #### A CHRISTINE #### [facility] (UNKNOWN) [address] [place] [address] Anion gap [Moles/Vol] 10 mmol/L Normal 4-12 [facility] Comment on above: Performed By: #### A CHRISTINE #### [facility] (UNKNOWN) [address] [place] [address] AST [Catalytic activity/Vol] 25 U/L Normal 15-41 [facility] Comment on above: Performed By: #### A CHRISTINE #### [facility] (UNKNOWN) [address] [place] [address] Bili Total 0.5 mg/dL Normal 0.3-1.2 [facility] Comment on above: Performed By: #### A CHRISTINE #### [facility] (UNKNOWN) [address] [place] [address] Calcium [Mass/Vol] 8.8 mg/dL Normal 8.5-10.3 [facility] Comment on above: Performed By: #### A CHRISTINE #### [facility] (UNKNOWN) [address] [place] [address] Chloride [Moles/Vol] 100 mmol/L Normal 98-110 [facility] Comment on above: Performed By: #### A CHRISTINE #### [facility] (UNKNOWN) [address] [place] [address] CO2 [Moles/Vol] 29 mmol/L Normal 22-32 [facility] Comment on above: Performed By: #### A CHRISTINE #### [facility] (UNKNOWN) [address] [place] [address] Creatinine [Mass/Vol] 0.85 mg/dL Normal 0.44-1.03 [facility] Comment on above: Performed By: #### A CHRISTINE #### [facility] (UNKNOWN) [address] [place] [address] Glucose [Mass/Vol] 108 mg/dL High 70-99 [facility] Comment on above: Performed By: #### A CHRISTINE #### [facility] (UNKNOWN) [address] [place] [address] Potassium [Moles/Vol] 4.3 mmol/L Normal 3.4-4.8 [facility] Comment on above: Performed By: #### A CHRISTINE #### [facility] (UNKNOWN) [address] [place] [address] Protein [Mass/Vol] 6.0 g/dL Low 6.5-8.1 [facility] Comment on above: Performed By: #### A CHRISTINE #### [facility] (UNKNOWN) [address] [place] [address] Sodium [Moles/Vol] 139 mmol/L Normal 133-142 [facility] Comment on above: Performed By: #### A CHRISTINE #### [facility] [facility] (UNKNOWN) [address] [place] [address] Urea nitrogen [Mass/Vol] 11 mg/dL Normal 8-26 [facility] Comment on above: Performed By: #### A CHRISTINE #### [facility] (UNKNOWN) [address] [place] [address] Urea nitrogen/Creatinine [Mass ratio] 12.9 mg/mg Normal 10.0-20.0 [facility] Comment on above: Performed By: #### A CHRISTINE #### [facility] (UNKNOWN) [address] [place] [address] Diff Autoon 02-28-2024 Baso Absolute 0.1 x10*3/mcL Normal 0.0-0.2 [facility] Comment on above: Performed By: #### A CHRISTINE #### [facility] (UNKNOWN) [address] [place] [address] Basophils/100 WBC (Bld) 0.8 % Normal 0.0-1.5 [facility] Comment on above: Performed By: #### A CHRISTINE #### [facility] (UNKNOWN) [address] [place] [address] Eos Absolute 0.1 x10*3/mcL Normal 0.0-0.4 [facility] Comment on above: Performed By: #### A CHRISTINE #### [facility] (UNKNOWN) [address] [place] [address] Eosinophils/100 WBC (Bld) 0.8 % Normal 0.0-5.4 [facility] Comment on above: Performed By: #### A CHRISTINE #### [facility] (UNKNOWN) [address] [place] [address] Lymph Absolute 2.2 x10*3/mcL Normal 1.0-4.8 [facility] Comment on above: Performed By: #### A CHRISTINE #### [facility] (UNKNOWN) [address] [place] [address] Lymphocytes/100 WBC (Bld) 26.1 % Low 27.2-40.8 [facility] Comment on above: Performed By: #### A CHRISTINE #### [facility] (UNKNOWN) [address] [place] [address] [place] Absolute 0.8 x10*3/mcL Normal 0.1-1.1 [facility] Comment on above: Performed By: #### A CHRISTINE #### [facility] (UNKNOWN) [address] [place] [address] Monocytes/100 WBC (Bld) 9.5 % Normal 3.7-11.9 [facility] Comment on above: Performed By: #### A CHRISTINE #### [facility] (UNKNOWN) [address] [place] [address] Neutro Absolute 5.3 x10*3/mcL Normal 1.8-7.7 [facility] Comment on above: Performed By: #### A CHRISTINE #### [facility] (UNKNOWN) [address] [place] [address] Neutro Auto 62.8 % Normal 47.2-70.8 [facility] Comment on above: Performed By: #### A CHRISTINE #### [facility] (UNKNOWN) [address] [place] [address] Inpatient Clinical Summaryon 02-28-2024 Inpatient Clinical Summary [address] [address] Clinical Summary Person Information Name: Petrona Gordon Age: 63 Years : 1960 Sex: Female PCP: Rohith Archer DO Marital Status: Single Phone: PCP: Race: White Ethnicity: Not or Language: Tanzanian Visit Id: Visit Reason: Speciality: Acuity: Enc Type: Inpatient Med Service: Surgery Arrival: 02/26/2024 08:53:02 Discharge: Dispo Type: Address: [address] [place] [address] [address] [facility] [id number] Diagnosis: Post-op pain Discharged To: Home Treatments: [...] range between ( 27.2 and 40.8 ) [place] Auto: 9.5 % -- Normal range between [...] range between ( 36.0 and 46.0 ) [place] Absolute: 0.8 x10 MCH: 30.8 pg -- [...] No Immunizations (more content not included)... Normal [facility] Magnesiumon 02-28-2024 Magnesium [Mass/Vol] 1.8 mg/dL Normal 1.7-2.4 [facility] Comment on above: Performed By: #### A SA #### [facility] (UNKNOWN) [address] [place] [address] Phosphoruson 02-28-2024 Phosphate [Mass/Vol] 2.7 mg/dL Normal 2.5-4.6 [facility] Comment on above: Performed By: #### A SA #### [facility] (UNKNOWN) [address] [place] [address] Surgical Progress Noteon Surgical Progress Note Patient tolerating diet did not like her arm at this morning no nausea no vomiting No gas or BM yet Pain is well-controlled Ambulating in the halls Status post sigmoidectomy and rectopexy Awaiting bowel function Discharge this afternoon versus tomorrow Electronically signed by Iván Sapp MD 02/28/24 10:33 EDT Normal [facility] .eGFRon 02-27-2024 GFR/1.73 sq M.predicted MDRD (S/P/Bld) [Vol rate/Area] mL/min/{1.73_m2} Normal >=60 [facility] Comment on above: Result Comment: [facility] have implemented the eGFR calculation [...] 1 Age = years Performed By: #### A SA #### [facility] (UNKNOWN) [address] [place] [address] CBC w/ Diffon 02-27-2024 Erythrocyte distribution width (RBC) [Ratio] 12.8 % Normal 11.6-14.8 [facility] Comment on above: Performed By: #### A SA #### [facility] (UNKNOWN) [address] [place] [address] Hematocrit (Bld) [Volume fraction] 36.9 % Normal 36.0-46.0 [facility] Comment on above: Performed By: #### A SA #### [facility] (UNKNOWN) [address] [place] [address] Hemoglobin (Bld) [Mass/Vol] 12.6 g/dL Normal 12.0-16.0 [facility] Comment on above: Performed By: #### A SA #### [facility] (UNKNOWN) [address] [place] [address] MCH (RBC) [Entitic mass] 31.4 pg Normal 27.0-35.0 [facility] Comment on above: Performed By: #### A SA #### [facility] (UNKNOWN) [address] [place] [address] MCHC 34.1 % Normal 31.0-37.0 [facility] Comment on above: Performed By: #### A #### [facility] (UNKNOWN) [address] [place] [address] MCV (RBC) [Entitic vol] 92.0 fL Normal 80.0-100.0 [facility] Comment on above: Performed By: #### A #### [facility] (UNKNOWN) [address] [place] [address] Platelet 329 x10*3/mcL Normal 150-450 [facility] Comment on above: Performed By: #### A #### [facility] (UNKNOWN) [address] [place] [address] Platelet mean volume (Bld) [Entitic vol] 7.9 fL Normal 6.7-10.6 [facility] Comment on above: Performed By: #### A #### [facility] (UNKNOWN) [address] [place] [address] RBC 4.01 x10*6/mcL Normal 3.80-5.20 [facility] Comment on above: Performed By: #### A #### [facility] (UNKNOWN) [address] [place] [address] WBC 11.7 x10*3/mcL High 4.5-11.0 [facility] Comment on above: Performed By: #### A #### [facility] (UNKNOWN) [address] [place] [address] CMPon 02-27-2024 Albumin [Mass/Vol] 3.3 g/dL Normal 3.2-4.9 [facility] Comment on above: Performed By: #### A CHRISTINE #### [facility] (UNKNOWN) [address] [place] [address] Albumin/Globulin [Mass ratio] 1.2 {ratio} Normal 1.1-2.2 [facility] Comment on above: Performed By: #### A CHRISTINE #### [facility] (UNKNOWN) [address] [place] [address] Alk Phos 62 IU/L Normal 32-91 [facility] Comment on above: Performed By: #### A CHRISTINE #### [facility] (UNKNOWN) [address] [place] [address] ALT [Catalytic activity/Vol] 15 U/L Normal 14-54 [facility] Comment on above: Performed By: #### A CHRISTINE #### [facility] (UNKNOWN) [address] [place] [address] Anion gap [Moles/Vol] 8 mmol/L Normal 4-12 [facility] Comment on above: Performed By: #### A CHRISTINE #### [facility] (UNKNOWN) [address] [place] [address] AST [Catalytic activity/Vol] 19 U/L Normal 15-41 [facility] Comment on above: Performed By: #### A CHRISTINE #### [facility] (UNKNOWN) [address] [place] [address] Bili Total 0.9 mg/dL Normal 0.3-1.2 [facility] Comment on above: Performed By: #### A CHRISTINE #### [facility] (UNKNOWN) [address] [place] [address] Calcium [Mass/Vol] 8.5 mg/dL Normal 8.5-10.3 [facility] Comment on above: Performed By: #### A CHRISTINE #### [facility] (UNKNOWN) [address] [place] [address] Chloride [Moles/Vol] 101 mmol/L Normal 98-110 [facility] Comment on above: Performed By: #### A CHRISTINE #### [facility] (UNKNOWN) [address] [place] [address] CO2 [Moles/Vol] 23 mmol/L Normal 22-32 [facility] Comment on above: Performed By: #### A CHRISTINE #### [facility] (UNKNOWN) [address] [place] [address] Creatinine [Mass/Vol] 0.79 mg/dL Normal 0.44-1.03 [facility] Comment on above: Performed By: #### A CHRISTINE #### [facility] (UNKNOWN) [address] [place] [address] Glucose [Mass/Vol] 119 mg/dL High 70-99 [facility] Comment on above: Performed By: #### A CHRISTINE #### [facility] (UNKNOWN) [address] [place] [address] Potassium [Moles/Vol] 4.2 mmol/L Normal 3.4-4.8 [facility] Comment on above: Performed By: #### A CHRISTINE #### [facility] (UNKNOWN) [address] [place] [address] Protein [Mass/Vol] 6.0 g/dL Low 6.5-8.1 [facility] Comment on above: Performed By: #### A CHRISTINE #### [facility] (UNKNOWN) [address] [place] [address] Sodium [Moles/Vol] 132 mmol/L Low 133-142 [facility] Comment on above: Performed By: #### A CHRISTINE #### [facility] (UNKNOWN) [address] [place] [address] Urea nitrogen [Mass/Vol] 16 mg/dL Normal 8-26 [facility] Comment on above: Performed By: #### A CHRISTINE #### [facility] (UNKNOWN) [address] [place] [address] Urea nitrogen/Creatinine [Mass ratio] 20.3 mg/mg High 10.0-20.0 [facility] Comment on above: Performed By: #### A CHRISTINE #### [facility] (UNKNOWN) [address] [place] [address] Diff Autoon 02-27-2024 Baso Absolute 0.0 x10*3/mcL Normal 0.0-0.2 [facility] Comment on above: Performed By: #### A #### [facility] (UNKNOWN) [address] [place] [address] Basophils/100 WBC (Bld) 0.3 % Normal 0.0-1.5 [facility] Comment on above: Performed By: #### A SA #### [facility] (UNKNOWN) [address] [place] [address] Eos Absolute 0.0 x10*3/mcL Normal 0.0-0.4 [facility] Comment on above: Performed By: #### A SA #### [facility] (UNKNOWN) [address] [place] [address] Eosinophils/100 WBC (Bld) 0.0 % Normal 0.0-5.4 [facility] Comment on above: Performed By: #### A SA #### [facility] (UNKNOWN) [address] [place] [address] Lymph Absolute 0.9 x10*3/mcL Low 1.0-4.8 [facility] Comment on above: Performed By: #### A SA #### [facility] (UNKNOWN) [address] [place] [address] Lymphocytes/100 WBC (Bld) 7.4 % Low 27.2-40.8 [facility] Comment on above: Performed By: #### A SA #### [facility] (UNKNOWN) [address] [place] [address] [place] Absolute 0.9 x10*3/mcL Normal 0.1-1.1 [facility] Comment on above: Performed By: #### A SA #### [facility] (UNKNOWN) [address] [place] [address] Monocytes/100 WBC (Bld) 7.8 % Normal 3.7-11.9 [facility] Comment on above: Performed By: #### A SA #### [facility] (UNKNOWN) [address] [place] [address] Neutro Absolute 9.9 x10*3/mcL High 1.8-7.7 [facility] Comment on above: Performed By: #### A SA #### [facility] (UNKNOWN) [address] [place] [address] Neutro Auto 84.5 % High 47.2-70.8 [facility] Comment on above: Performed By: #### A SA #### [facility] (UNKNOWN) [address] [place] [address] Magnesiumon 02-27-2024 Magnesium [Mass/Vol] 1.6 mg/dL Low 1.7-2.4 [facility] Comment on above: Performed By: #### M G #### [facility] [address] [place] [address] Phosphoruson 02-27-2024 Phosphate [Mass/Vol] 3.8 mg/dL Normal 2.5-4.6 [facility] Comment on above: Performed By: #### A SA #### [facility] (UNKNOWN) [address] [place] [address] Surgical Progress Noteon Surgical Progress Note Patient [...] Iván Sapp MD 02/27/24 10:53 EDT Normal [facility] Operative Reporton 4 Operative Report Indication for Surgery Rectal prolapse Preoperative Diagnosis Same Postoperative Diagnosis Sigmoid colectomy with rectopexy Operation Rectopexy Robotic X/Xi Resection Sigmoid Colon Robotic X/Xi Surgeon(s) Sulma RODRÍGUEZ, J I (Surgeon - Primary) Digital Engineer Patito SOTO, Nae Felipe (Band Saw Operator) Anesthesia General Juan Miguel Negron DO (Simulation Specialist) Estimated Blood Loss 15 mL Urine Output [...] in the right upper quadrant as an corporate legal assistant port. The patient was then placed [...] EEA stapler was then inserted by the corporate legal assistant into the proximal anterior aspect of the rectal stump just distal to staple line to allow for performing the anastomosis anteriorly wh (more content not included)... Normal [facility] .eGFRon 02-16-2024 GFR/1.73 sq M.predicted MDRD (S/P/Bld) [Vol rate/Area] mL/min/{1.73_m2} Normal >=60 [facility] Comment on above: Order Comment: Order added by Discern rule Result Comment: [facility] have implemented the eGFR calculation [...] 1 Age = years Performed By: #### A [facility] #### [facility] (UNKNOWN) [address] [place] [address] GFR/1.73 sq M.predicted MDRD (S/P/Bld) [Vol rate/Area] mL/min/{1.73_m2} Normal >=60 [facility] Comment on above: Order Comment: Order added by Discern Rule. Result Comment: [facility] have implemented the eGFR calculation [...] 1 Age = years Performed By: #### A CHRISTINE #### [facility] (UNKNOWN) [address] [place] [address] ABO/Rhon 02-16-2024 ABO/Rh ABO/Rh: B POS Normal [facility] Comment on above: Performed By: #### A CHRISTINE #### [facility] (UNKNOWN) [address] [place] [address] ABSC Autoon 02-16-2024 ABSC Auto Negative Normal [facility] Comment on above: Performed By: #### A #### [facility] (UNKNOWN) [address] [place] [address] CBC w/ Diffon 02-16-2024 Erythrocyte distribution width (RBC) [Ratio] 13.0 % Normal 11.6-14.8 [facility] Comment on above: Performed By: #### A CHRISTINE #### [facility] (UNKNOWN) [address] [place] [address] Hematocrit (Bld) [Volume fraction] 41.7 % Normal 36.0-46.0 [facility] Comment on above: Performed By: #### A CHRISTINE #### [facility] (UNKNOWN) [address] [place] [address] Hemoglobin (Bld) [Mass/Vol] 14.4 g/dL Normal 12.0-16.0 [facility] Comment on above: Performed By: #### A CHRISTINE #### [facility] (UNKNOWN) [address] [place] [address] MCH (RBC) [Entitic mass] 31.8 pg Normal 27.0-35.0 [facility] Comment on above: Performed By: #### A CHRISTINE #### [facility] (UNKNOWN) [address] [place] [address] MCHC 34.4 % Normal 31.0-37.0 [facility] Comment on above: Performed By: #### A CHRISTINE #### [facility] (UNKNOWN) [address] [place] [address] MCV (RBC) [Entitic vol] 92.5 fL Normal 80.0-100.0 [facility] Comment on above: Performed By: #### A CHRISTINE #### [facility] (UNKNOWN) [address] [place] [address] Platelet 378 x10*3/mcL Normal 150-450 [facility] Comment on above: Performed By: #### A CHRISTINE #### [facility] (UNKNOWN) [address] [place] [address] Platelet mean volume (Bld) [Entitic vol] 6.9 fL Low 7.5-11.5 [facility] Comment on above: Performed By: #### A CHRISTINE #### [facility] (UNKNOWN) [address] [place] [address] RBC 4.51 x10*6/mcL Normal 3.80-5.20 [facility] Comment on above: Performed By: #### A CHRISTINE #### [facility] (UNKNOWN) [address] [place] [address] WBC 7.4 x10*3/mcL Normal 4.5-11.0 [facility] Comment on above: Performed By: #### A CHRISTINE #### [facility] (UNKNOWN) [address] [place] [address] CMPon 02-16-2024 Albumin [Mass/Vol] 4.6 g/dL Normal 3.7-5.3 [facility] Comment on above: Performed By: #### A #### [facility] (UNKNOWN) [address] [place] [address] Albumin/Globulin [Mass ratio] 1.7 {ratio} Normal 1.1-2.2 [facility] Comment on above: Performed By: #### A #### [facility] (UNKNOWN) [address] [place] [address] Alk Phos 80 IU/L Normal 34-104 [facility] Comment on above: Performed By: #### A SA #### [facility] (UNKNOWN) [address] [place] [address] ALT [Catalytic activity/Vol] 12 U/L Normal 7-52 [facility] Comment on above: Performed By: #### A SA #### [facility] (UNKNOWN) [address] [place] [address] Anion gap [Moles/Vol] 4 mmol/L Normal 4-12 [facility] Comment on above: Performed By: #### A SA #### [facility] (UNKNOWN) [address] [place] [address] AST [Catalytic activity/Vol] 17 U/L Normal 13-39 [facility] Comment on above: Performed By: #### A SA #### [facility] (UNKNOWN) [address] [place] [address] Bili Total 0.5 mg/dL Normal 0.3-1.0 [facility] Comment on above: Performed By: #### A SA #### [facility] (UNKNOWN) [address] [place] [address] Calcium [Mass/Vol] 9.9 mg/dL Normal 8.6-10.3 [facility] Comment on above: Performed By: #### A SA #### [facility] (UNKNOWN) [address] [place] [address] Chloride 103 IU/L Normal 98-107 [facility] Comment on above: Performed By: #### A SA #### [facility] (UNKNOWN) [address] [place] [address] CO2 [Moles/Vol] 31 mmol/L Normal 21-31 [facility] Comment on above: Performed By: #### A SA #### [facility] (UNKNOWN) [address] [place] [address] Creatinine [Mass/Vol] 0.59 mg/dL Low 0.60-1.20 [facility] Comment on above: Performed By: #### A SA #### [facility] (UNKNOWN) [address] [place] [address] Glucose [Mass/Vol] 90 mg/dL Normal 70-99 [facility] Comment on above: Performed By: #### A SA #### [facility] (UNKNOWN) [address] [place] [address] Potassium [Moles/Vol] 4.3 mmol/L Normal 3.4-4.8 [facility] Comment on above: Performed By: #### A SA #### [facility] (UNKNOWN) [address] [place] [address] Protein [Mass/Vol] 7.3 g/dL Normal 6.0-8.3 [facility] Comment on above: Performed By: #### A SA #### [facility] (UNKNOWN) [address] [place] [address] Sodium [Moles/Vol] 138 mmol/L Normal 136-145 [facility] Comment on above: Performed By: #### A SA #### [facility] (UNKNOWN) [address] [place] [address] Urea nitrogen [Mass/Vol] 10 mg/dL Normal 7-25 [facility] Comment on above: Performed By: #### A SA #### [facility] (UNKNOWN) [address] [place] [address] Urea nitrogen/Creatinine [Mass ratio] 16.9 mg/mg Normal 10.0-20.0 [facility] Comment on above: Performed By: #### A SA #### [facility] (UNKNOWN) [address] [place] [address] CT Abdomen Pelvis w/ IV Cont [facility] 02-16-2024 CT Abdomen Pelvis w/ IV Contrast [...] extend through the anus. Radiation Dose Estimate: CTDI(mGy):0.184144 / / / kVp:100.765360 / mAs:0.786243 / / / DLP(mGy-cm):0.383269 Body Part: Abdomen CTDI(mGy):4.234748 / / / kVp:80.112612 / mAs:128.173540 / / / DLP(mGy-cm):192.0000 00Body Part: Abdomen Final Dictated by: Irma Estevez MD Dictated DT/TM: 02.16.2024 3:59 pm Signed by: Irma Estevez MD Signed (Electronic Signature): 02.16.2024 4:12 pm (If Report Is Signed, Electronically Signed in Other Vendor System) Normal [facility] Comment on above: Order Comment: tatiana khan order signed 02/04/24 - [facility] in [employer] Diff Autoon 02-16-2024 Baso Absolute 0.1 x10*3/mcL Normal 0.0-0.2 [facility] Comment on above: Performed By: #### A SA #### [facility] (UNKNOWN) [address] [place] [address] Basophils/100 WBC (Bld) 1.1 % Normal 0.0-1.5 [facility] Comment on above: Performed By: #### A SA #### [facility] (UNKNOWN) [address] [place] [address] Eos Absolute 0.1 x10*3/mcL Normal 0.0-0.4 [facility] Comment on above: Performed By: #### A SA #### [facility] (UNKNOWN) [address] [place] [address] Eosinophils/100 WBC (Bld) 1.4 % Normal 0.0-5.4 [facility] Comment on above: Performed By: #### A SA #### [facility] (UNKNOWN) [address] [place] [address] Lymph Absolute 2.0 x10*3/mcL Normal 1.0-4.8 [facility] Comment on above: Performed By: #### A SA #### [facility] (UNKNOWN) [address] [place] [address] Lymphocytes/100 WBC (Bld) 26.9 % Low 27.2-40.8 [facility] Comment on above: Performed By: #### A SA #### [facility] (UNKNOWN) [address] [place] [address] [place] Absolute 0.5 x10*3/mcL Normal 0.1-1.1 [facility] Comment on above: Performed By: #### A SA #### [facility] (UNKNOWN) [address] [place] [address] Monocytes/100 WBC (Bld) 6.9 % Normal 3.7-11.9 [facility] Comment on above: Performed By: #### A SA #### [facility] (UNKNOWN) [address] [place] [address] Neutro Absolute 4.7 x10*3/mcL Normal 1.8-7.7 [facility] Comment on above: Performed By: #### A SA #### [facility] (UNKNOWN) [address] [place] [address] Neutro Auto 63.7 % Normal 47.2-70.8 [facility] Comment on above: Performed By: #### A SA #### [facility] (UNKNOWN) [address] [place] [address] POC Creatinine Von 4 POC Crea iStat Venous 0.6 mg/dL Normal 0.6-1.3 [facility] Comment on above: Performed By: #### A CHRISTINE #### [facility] (UNKNOWN) [address] [place] [address] Surgery Office/Clinic Noteon 02-04-2024 Surgery Office/Clinic Note Chief Complaint Rectal protrusion History of Present Illness 63 year old female, referred by Dr. Amanda ([facility]), patient of Colin Sarah Patient is here with c/o protrusion from the rectum that has been an ongoing issue for many years, but worsening lately. States it is becoming more difficult to reduce. She denies constipation or straining and bleeding. Last colonoscopy 01-14-2023 in [place], diverticulosis and tubular adenoma x2. The patient [...] (01/14/2023) Medicatio (more content not included)... Normal [facility] COMPREHENSIVE METABOLIC PANE Ish 09-01-2023 Albumin [Mass/Vol] 4.5 g/dL Normal 3.2-5.3 [facility] Comment on above: Performed By: #### Huseyin BARBOZA, [id number] #### [facility] ([id number]) [address], [address] [place] [address] ALP [Catalytic activity/Vol] 73 U/L Normal 39-130 [facility] Comment on above: Performed By: #### Huseyin BARBOZA, [id number] #### [facility] ([id number]) [address] [place] [address] ALT [Catalytic activity/Vol] 21 U/L Normal 0-31 [facility] Comment on above: Performed By: #### Huseyin BARBOZA, 77325-0 #### [facility] ([id number]) [address], [address] [place] [address] Anion gap [Moles/Vol] 8 mmol/L Normal 5-15 [facility] Comment on above: Performed By: #### Huseyin BARBOZA, [id number] #### [facility] ([id number]) [address], [address] [place] [address] AST [Catalytic activity/Vol] 24 U/L Normal 0-41 [facility] Comment on above: Performed By: #### Huseyin BARBOZA, [id number] #### [facility] ([id number]) [address], [address] [place] [address] Bilirubin [Mass/Vol] 0.3 mg/dL Normal 0.3-1.2 [facility] Comment on above: Performed By: #### C TAMRA, [id number] #### [facility] ([id number]) [address], [address] [place] [address] Calcium [Mass/Vol] 9.4 mg/dL Normal 8.5-10.5 [facility] Comment on above: Performed By: #### Huseyin BARBOZA, [id number] #### [facility] [facility] ([id number]) [address], [address] [place] [address] Chloride [Moles/Vol] 102 mmol/L Normal 98-109 [facility] Comment on above: Performed By: #### Huseyin BARBOZA, 30386-0 #### [facility] ([id number]) [address], [address] [place] [address] CO2 [Moles/Vol] 30 mmol/L Normal 22-32 [facility] Comment on above: Performed By: #### Huseyin BARBOZA, 89634-1 #### [facility] ([id number]) [address], [address] [place] [address] Creatinine [Mass/Vol] 0.58 mg/dL Normal 0.40-1.00 [facility] Comment on above: Result Comment: METH OD TRACEABLE TO IDMS STANDARD Performed By: #### Huseyin BARBOZA, 75383-8 #### [facility] ([id number]) [address], [address] [place] [address] eGFR (CKD-EPI) NON-RACE DEPENDENT >90 Normal >59 [facility] Comment on above: Result Comment: Reported eGFR is based on the CKD-EPI 2020 equation that does not use a race coefficient. Performed By: #### Huseyin BARBOZA, 63448-4 #### [facility] ([id number]) [address], [address] [place] [address] Glucose [Mass/Vol] 98 mg/dL Normal 65-99 [facility] Comment on above: Performed By: #### C TAMRA, 71891-2 #### [facility] ([id number]) [address], [address] [place] [address] Potassium [Moles/Vol] 4.5 mmol/L Normal 3.5-5.0 [facility] Comment on above: Performed By: #### Huseyin BARBOZA, 06167-4 #### [facility] ([id number]) [address], [address] [place] [address] Protein [Mass/Vol] 6.9 g/dL Normal 6.0-8.0 [facility] Comment on above: Performed By: #### Huseyin BARBOZA, 60927-0 #### [facility] ([id number]) [address], [address] [place] [address] Sodium [Moles/Vol] 140 mmol/L Normal 134-146 [facility] Comment on above: Performed By: #### Huseyin BARBOZA, 96492-0 #### [facility] ([id number]) [address], [address] [place] [address] Urea nitrogen [Mass/Vol] 12 mg/dL Normal 5-27 [facility] Comment on above: Performed By: #### Huseyin BARBOZA, 56276-8 #### [facility] ([id number]) [address], [address] [place] [address] Comprehensive metabolic pane ish 09-01-2023 Albumin [Mass/Vol] 4.5 g/dL 3.2 - 5.3 g/dL [facility] ALP [Catalytic activity/Vol] 73 U/L 39 - 130 U/L [facility] ALT No additional P-5'-P [Catalytic activity/Vol] 21 U/L 0 - 31 U/L [facility] Anion gap [Moles/Vol] 8 mmol/L 5 - 15 mmol/L [facility] AST [Catalytic activity/Vol] 24 U/L 0 - 41 U/L [facility] Bilirubin [Mass/Vol] 0.3 mg/dL 0.3 - 1 .2 mg/dL [facility] Calcium [Mass/Vol] 9.4 mg/dL 8.5 - 10. 5 mg/dL [facility] Chloride [Moles/Vol] 102 mmol/L 98 - 10 9 mmol/L [facility] CO2 [Moles/Vol] 30 mmol/L 22 - 32 mmol/L [facility] Creatinine [Mass/Vol] 0.58 mg/dL 0.40 - 1.00 mg/dL [facility] Comment on above: METHOD TRACEABLE TO [facility] STANDARD eGFR (CKD-EPI)non-race dependent - PINF [facility] Comment on above: Reported eGFR is based on the CKD-EPI 2020 equation that does not use a race coefficient. Glucose [Mass/Vol] 98 mg/dL 65 - 99 mg/dL [facility] Potassium [Moles/Vol] 4.5 mmol/L 3.5 - 5.0 mmol/L [facility] Protein [Mass/Vol] 6.9 g/dL 6.0 - 8.0 g/dL [facility] Sodium [Moles/Vol] 140 mmol/L 134 - 146 mmol/L [facility] Urea nitrogen [Mass/Vol] 12 mg/dL 5 - 27 mg/dL [facility] Lipid 1996 panelon 4 Cholesterol [Mass/Vol] 191 mg/dL 150 - 200 mg/dL [facility] Cholesterol in HDL [Mass/Vol] 54 mg/dL 39 - PINF mg/dL [facility] Comment on above: HDL <40 mg/dL - High Risk HDL > or = 40mg/dL- Desirable HDL >60 mg/dL - Negative Risk Cholesterol in LDL [Mass/Vol] 111 mg/dL NINF - 130 mg/dL [facility] Comment on above: LDL <100 mg/dL - Desirable LDL >160 mg/dL - High Risk Cholesterol in VLDL [Mass/Vol] 26 mg/dL 0 - 30 mg/dL [facility] Cholesterol.total/Cho lesterol in HDL [Mass ratio] 3.5 {ratio} 1.0 - 5.0 [facility] Triglyceride [Mass/Vol] 130 mg/dL 27 - 150 mg/dL [facility] Cholesterol [Mass/Vol] 191 mg/dL Normal 150-200 [facility] Comment on above: Performed By: #### Huseyin BARBOZA, 27280-8 #### [facility] ([id number]) [address], [address] [place] [address] Cholesterol in HDL [Mass/Vol] 54 mg/dL Normal >39 [facility] Comment on above: Result Comment: HDL <40 mg/dL - High Risk HDL > or = 40mg/dL- Desirable HDL >60 mg/dL - Negative Risk Performed By: #### Huseyin BARBOZA, 20202-3 #### [facility] ([id number]) [address], [address] [place] [address] Cholesterol in LDL [Mass/Vol] 111 mg/dL Normal <130 [facility] Comment on above: Result Comment: LDL <100 mg/dL - Desirable LDL >160 mg/dL - High Risk Performed By: #### Huseyin BARBOZA, 73761-1 #### [facility] ([id number]) [address], [address] [place] [address] Cholesterol in VLDL [Mass/Vol] 26 mg/dL Normal 0-30 [facility] Comment on above: Performed By: #### Huseyin BARBOZA, 90791-5 #### [facility] ([id number]) [address] [place] [address] CHOLESTEROL:HDL 3.5 Normal 1.0-5.0 [facility] Comment on above: Performed By: #### C TAMRA, 65415-3 #### [facility] ([id number]) [address] [place] [address] Triglyceride [Mass/Vol] 130 mg/dL Normal 27-150 [facility] Comment on above: Performed By: #### C TAMRA, 20439-0 #### [facility] ([id number]) [address] [place] [address] No Panel Informationon 08-31 [facility] POCT EKGOrdered By: Cami Fine per on 06-15-2023 [facility] Outside Colonoscopyon 2022 Outside Colonoscopy [id number] 7#1.00CD:127 Normal [facility] Pathology Noteon 01-21-2023 Pathology Note [id number] #1.00CD:127 Normal [facility] Reminderson 01-21-2023 Reminders - From: Elisa Patel LPN To: GSN - Clinical; Sent: 01/21/2023 10:07:40 EDT Show up: 12/15/2027 07:00:00 EDT Subject: colonoscopy recall Due Date/Time: 01/15/2028 07:00:00 EDT Reminder/Recall Patient due for surveillance colonoscopy 01/15/2028. Normal [facility] Insurance Correspondenceon 0 12-26-2022 Insurance Correspondence [id number] 7#1.00CD:127 Normal [facility] Consent for Procedure/Surger yon 12-17-2022 Consent for Procedure/Surgery [id number] #1.00CD:127 Normal [facility] Facesheeton 12-17-2022 Facesheet [id number] #1.00CD:127 Normal [facility] Ambulatory Visit Summaryon 0 12-16-2022 Ambulatory [...] Screening for malignant neoplasm of colon Normal [facility] Physician Referralon 023 Physician Referral [id number] #1.00CD:127 Normal [facility] CT LUNG CANCER SCREENINGon 0 09-29-2022 [...] by: GABRIEL ROBERTSON Date: 2022-09-29 17:03 Normal [facility] COVID + FLU Quick Testingon 05-31-2022 SARS-CoV-2 (COVID-19) RNA MILAN+probe Ql (Unsp spec) Negative [employer] Other COVID + FLU Quick Testing Negative [employer] Other XR chest 2V*on 05-31-2022 XR chest 2V* [facility] [place] [address] [place] [address] XRay Report Signed Patient: Petrona Gordon MR#: [id number] : 1960 Acct:[id number] Age/Sex: 61 / F ADM Date: 05/31/22 Loc: XDUCLY Room: Type: [facility] Attending Dr: Janice MORELOS Copies to: JETHRO [...] Keyonna Head M.D.05/31/2022 1:14 PM Dictation Location: [facility] Transcribed By: LAUREEN 05/31/22 1314 Dictated By: Keyonna Head MD 05/31/22 1313 Signed By: 05/31/22 1314 Normal [facility] XR chest 2V* [facility] Other XR chest 2V* [facility] Other XR chest 2V* [address] [place] [address] IMV[facility] Other XR chest 2V* [place] [address] [facility] [employer] Other XR chest 2V* XRay Report [employer] Other XR chest 2V* Signed [employer] Other XR chest 2V* Patient: Petrona Gordon MR#: [id number] [employer] Other XR chest 2V* [id number] [employer] Other XR chest 2V* : 1960 Acct:[id number] [employer] Other XR chest 2V* Age/Sex: 61 / F ADM Date: 05/31/22 [employer] Other XR chest 2V* Loc: XDUCLY Room: Type: [facility] [employer] Other XR chest 2V* Attending Dr: Janice MORELOS [employer] Other XR chest 2V* Copies to: JETHRO Robles [employer] Other XR chest 2V* Ordering Provider: JETHRO Robles [employer] Other XR chest 2V* Date of Service: 05/31/22 [employer] Other XR chest 2V* XR/XR chest 2V*: COUGH [employer] Other XR chest 2V* PA AND LATERAL CHEST: [employer] Other XR chest 2V* CLINICAL HISTORY: Chest tightness on the right and productive cough [employer] Other XR chest 2V* COMPARISON: None [employer] Other XR chest 2V* The lungs are hyperinflated. There are minor chronic changes. There is no focal parenchymal [employer] Other XR chest 2V* consolidation, effusion or pneumothorax. The cardiac, hilar and mediastinal silhouettes are within [employer] Other XR chest 2V* normal limits. There is no vascular congestion. The visualized bony thorax is intact. Endplate [employer] Other XR chest 2V* spurring is present. No rt [employer] Other XR chest 2V* XR/XR chest 2V* [employer] Other XR chest 2V* IMPRESSION: [employer] Other XR chest 2V* OBSTRUCTIVE LUNG DISEASE. [employer] Other XR chest 2V* NO ACUTE CARDIOPULMONARY ABNORMALITY. [employer] Other XR chest 2V* Impression dictated by: Keyonna Head M.D.05/31/2022 1:14 PM [employer] Other XR chest 2V* Dictation Location: [place] [address] [employer] Other XR chest 2V* Transcribed By: LAUREEN 05/31/22 1314 [employer] Other XR chest 2V* Dictated By: Keyonna Head MD 05/31/22 1313 [employer] Other XR chest 2V* Signed By: [employer] Other XR chest 2V* 05/31/22 1314 [facility] Other COVID Quick Testingon 2021 Result Positive [employer] Other XR CSPINE 2_3 VIEWSon 2021 XR [...] paraspinous abnormality is seen. OTHER: Negative. IMPRESSION: [id number]-mc-acqbrcmc degenerative changes most significant at C5-C6 Electronically authenticated by: LOLIS CALLAWAY Date: 2021-10-14 07:09 Normal [facility] COVID Quick Testingon 2020 Result Negative [employer] Other Vital Signs Date Time Vital Sign Value Performing Clinician Facility 02-22-2024 [id number] Body height 160 cm to be DO Work Phone: [facility] 02-22-2024 11:04-0400 Body mass index (BMI) [Ratio] 23.24 kg/m2 to be DO Work Phone: [facility] 02-22-2024 11:04-0400 Body temperature 97.81 [degF] to be DO [facility] 02-22-2024 [id number] Body weight 59.51 kg to be DO Work Phone: [facility] 02-22-2024 11:04-0400 Diastolic blood pressure 58 mm[Hg] Rohith Furlong DO Work Phone: [facility] 02-22-2024 11:04-0400 Heart rate 79 /min Rohith Furlong DO Work Phone: [facility] 02-22-2024 11:04-0400 Respiratory rate 18 /min Rohith Furlong DO Work Phone: [facility] 02-22-2024 11:04-0400 SaO2% (BldA) [Mass fraction] 96 % Rohith Furlong DO Work Phone: [facility] 02-22-2024 11:04-0400 Systolic blood pressure 118 mm[Hg] Rohith Furlong DO Work Phone: [facility] 09-01-2023 15:20-0400 Body height 160 cm Rohith Furlong DO Work Phone: [facility] 09-01-2023 15:20-0400 Body mass index (BMI) [Ratio] 23.74 kg/m2 Rohith Furlong DO Work Phone: [facility] 09-01-2023 15:20-0400 Body temperature 98.4 [degF] Rohith Furlong DO Work Phone: [facility] 09-01-2023 15:20-0400 Body weight 60.78 kg Rohith Furlong DO Work Phone: [facility] 09-01-2023 15:20-0400 Diastolic blood pressure 72 mm[Hg] Rohith Furlong DO Work Phone: [facility] 09-01-2023 15:20-0400 Heart rate 82 /min Rohith Furlong DO Work Phone: [facility] 09-01-2023 15:20-0400 Respiratory rate 18 /min Rohith Furlong DO Work Phone: [facility] 09-01-2023 15:20-0400 SaO2% (BldA) [Mass fraction] 94 % Rohith Furlong DO Work Phone: [facility] 09-01-2023 15:20-0400 Systolic blood pressure 110 mm[Hg] Rohith Furlong DO Work Phone: [facility] 07-31-2023 10:55-0500 Body height 160 cm Rohith Furlong DO Work Phone: [facility] 07-31-2023 10:55-0500 Body mass index (BMI) [Ratio] 23.38 kg/m2 Rohith Furlong DO Work Phone: [facility] 07-31-2023 10:55-0500 Body temperature 97.9 [degF] Rohith Furlong DO Work Phone: [facility] 07-31-2023 10:55-0500 Body weight 59.88 kg Rohith Furlong DO Work Phone: [facility] 07-31-2023 10:55-0500 Diastolic blood pressure 70 mm[Hg] Rohith Furlong DO Work Phone: [facility] 07-31-2023 10:55-0500 Heart rate 100 /min Rohith Furlong DO Work Phone: [facility] 07-31-2023 10:55-0500 SaO2% (BldA) [Mass fraction] 95 % Rohith Furlong DO Work Phone: [facility] 07-31-2023 10:55-0500 Systolic blood pressure 120 mm[Hg] Rohith Furlong DO Work Phone: [facility] 06-15-2023 15:31-0500 Body height 160 cm Anais Muñoz [employer] Work Phone: [facility] 06-15-2023 15:31-0500 Body mass index (BMI) [Ratio] 24.13 kg/m2 Anais [employer] Work Phone: [facility] 06-15-2023 15:31-0500 Body temperature 97.81 [degF] Anais [employer] Work Phone: [facility] 06-15-2023 15:31-0500 Body weight 61.78 kg Anais [employer] Work Phone: [facility] 06-15-2023 15:31-0500 Diastolic blood pressure 60 mm[Hg] [employer]ais [employer] Work Phone: [facility] 06-15-2023 15:31-0500 Heart rate 81 /min Anais [employer] Work Phone: [facility] 06-15-2023 15:31-0500 SaO2% (BldA) [Mass fraction] 94 % Anais [employer] Work Phone: [facility] 06-15-2023 15:31-0500 Systolic blood pressure 110 mm[Hg] Anais [employer] Work Phone: [facility] 05-31-2022 13:30-0500 Body height 160.02 cm Janice Rahman Other [employer] Other 05-31-2022 13:30-0500 Body mass index (BMI) [Ratio] 26.04 kg/m2 Janice Rahman Other [employer] Other 05-31-2022 13:30-0500 Body temperature 97.8 [degF] Janice Rahman Other [employer] Other 05-31-2022 13:30-0500 Body weight 66.68 kg Janice Rahman Other [employer] Other 05-31-2022 13:30-0500 Diastolic blood pressure 74 mm[Hg] Janice Lacey Other [employer] Other 05-31-2022 13:30-0500 Respiratory rate 18 /min Janice Lacey Other [employer] Other 05-31-2022 13:30-0500 SaO2% (BldA) [Mass fraction] 98 % Janice Lacey Other [employer] Other 05-31-2022 13:30-0500 Systolic blood pressure 118 mm[Hg] Janice Lacey Other [employer] Other 11-30-2021 15:35-0400 Body height 160.02 cm Janice Lacey Other [employer] Other 11-30-2021 15:35-0400 Body mass index (BMI) [Ratio] 25.68 kg/m2 Janice Lacey Other [employer] Other 11-30-2021 15:35-0400 Body temperature 97.7 [degF] Janice Lacey Other [employer] Other 11-30-2021 15:35-0400 Body weight 65.77 kg Janice Lacey Other [employer] Other 11-30-2021 15:35-0400 Respiratory rate 18 /min Janice Lacey Other [employer] Other 11-30-2021 15:35-0400 SaO2% (BldA) [Mass fraction] 96 % Janice Lacey Other [place] [employer] Other Encounters Encounter Date Encounter Type Care Provider Facility Start: 04-14-2024 End: 04-14-2024 ambulatory Eveline Ozuna MD [facility] Start: 03-24-2024 End: 03-24-2024 ambulatory Eveline Ozuna MD Facility[facility] Start: 03-10-2024 End: 03-10-2024 ambulatory Eveline Ozuna MD Facility:[facility] Start: 02-26-2024 End: 02-28-2024 Evaluation and management of inpatient Rohith Archer DO Facility:[facility] Start: 02-24-2024 End: 02-24-2024 Orders Only Rohith Archer DO Work Phone: [facility] Comment on above: Lung nodule, solitar y (Primary Dx) Start: 02-22-2024 End: 02-22-2024 Office outpatient visit 15 minutes Rohith Archer DO Work Phone: [facility] Comment on above: Pre-op evaluation (P rimary Dx); Chronic obstructive pulmonary disease, unspecified COPD type ([facility]); Rectal prolapse Start: 02-22-2024 End: 02-22-2024 Preprocedural examination done Rohith Archer DO Work Phone: [facility] [employer] Work Phone: Start: 02-22-2024 End: 02-22-2024 ambulatory ROHITH ARCHER [facility] Start: 02-18-2024 End: 02-18-2024 ambulatory Rohith Archer DO Facility:[facility] Start: 02-16-2024 End: 02-16-2024 ambulatory Rohith Archer DO Facility:[facility] Start: 02-09-2024 End: 02-09-2024 ambulatory Eveline Ozuna MD Facility:[facility] Start: 02-04-2024 End: 02-04-2024 ambulatory Rohithgela Lakerox [place] Facility:[facility] Start: 09-01-2023 End: 09-02-2023 ambulatory [facility] Start: 09-01-2023 Encounter for genera l adult medical examination without abnormal findings [facility] Start: 09-01-2023 End: 09-01-2023 Patient encounter status Rohith Martin [place] Work Phone: [facility] Work Phone: Start: 09-01-2023 End: 09-01-2023 Periodic preventive med est patient 40-64yrs [facility] Work Phone: [facility] Comment on above: Well adult health ch bobby (Primary Dx); Thoracic region somatic dysfunction; Ex-cigarette smoker; Encounter for screening mammogram for malignant neoplasm of breast; Myalgia Start: 09-01-2023 End: 09-01-2023 ambulatory [facility] Start: 09-01-2023 Encounter for genera l adult medical examination without abnormal findings [facility] Start: 08-07-2023 Orders Only Anais Muñoz [employer] Work Phone: [facility] Comment on above: Rib pain on right si de (Primary Dx) Start: 07-31-2023 End: 07-31-2023 Office outpatient visit 15 minutes [facility] Work Phone: [facility] Comment on above: Acute pain of left s houlder (Primary Dx) Start: 07-31-2023 End: 07-31-2023 ambulatory [facility] Start: 07-17-2023 End: 07-18-2023 ambulatory [facility] Start: 07-01-2023 Orders Only Anais Muñoz [employer] Work Phone: [facility] Comment on above: Other chest pain (Pr imary Dx); Ventricular premature depolarization Start: 06-29-2023 End: 06-30-2023 ambulatory [facility] Start: 06-17-2023 Orders Only Anais Muñoz [employer] Work Phone: [facility] Comment on above: Other chest pain (Pr imary Dx) Acute chest wall erwin n (Primary Dx) Start: 06-15-2023 End: 06-15-2023 Office outpatient visit 15 minutes Anais Muñoz [employer] Work Phone: [facility] Comment on above: Acute chest wall erwin n (Primary Dx) Start: 06-15-2023 End: 06-15-2023 ambulatory [facility] Start: 05-30-2023 Refill Rohith gramajo DO Work [facility] Comment on above: Mixed hyperlipidemia Start: 01-14-2023 End: 01-15-2023 ambulatory Rohit YEH Facility:CD:[id number] Start: 12-16-2022 End: 12-17-2022 ambulatory ROHITH ARCHER Facility:[facility] Start: 11-27-2022 ambulatory ROHITH ARCHER Facility :[facility] Start: 09-29-2022 End: 09-30-[address] ROHITH ARCHER Facility:[facility] Start: 05-31-2022 End: 05-31-2022 ambulatory Janice Rahman Facility:[facility] Start: 05-31-2022 Office outpatient vi sit 25 minutes Janice Rahman [facility] Start: 05-31-2022 End: 05-31-2022 ambulatory DO Rohith Furlong Work Phone: [facility] Work Phone: Start: 05-31-2022 End: 05-31-2022 Patient encounter procedure DO Rohith Furlong Work Phone: [facility] Work Phone: Start: 11-30-2021 End: 11-30-2021 ambulatory Janice Rahman Other [employer] Other Start: 11-30-2021 Office outpatient vi sit 15 minutes Janice Rahman [facility] Start: 10-12-2021 End: 10-13-[address] ROHITH Martin [place] Facility: Start: 04-17-2021 End: 04-17-2021 ambulatory Janice Rahman Other [employer] Other Start: 04-17-2021 Office outpatient vi sit 5 minutes Janice Rahman [facility] Procedures Date Procedure Procedure Detail Performing Clinician Start: 02-22-2024 Adult depression scr eening assessment Rohith Furlong DO Work Phone: Start: 10-06-2023 Mammography Rohith Fur long DO Work Phone: Start: 09-01-2023 Adult depression scr eening assessment Rohith Furlong DO Work Phone: Start: 07-31-2023 Adult depression scr eening assessment Rohith Furlong DO Work Phone: Start: 06-15-2023 Ecg routine ecg w/le ast 12 lds w/i&r Anais Muñoz [employer] Work Phone: Start: 06-15-2023 Adult depression scr eening assessment Anais Muñoz [employer] Work Phone: Start: 01-14-2023 Colonoscopy Rohith Fur long DO Work Phone: Start: 12-08-2022 Adult depression scr eening assessment Rohith Furlong DO Work Phone: Start: 05-31-2022 Plain chest X-ray DO De nnis Furlong Work Phone: Plan of Treatment Date Care Activity Detail Author Start: 01-14-2033 Screening for malign ant neoplasm of colon Colonoscopy [facility] Start: 03-22-2029 DTaP,Tdap and Td Vaccines (2 - Td or Tdap) DTaP,Tdap and Td Vaccines (2 - Td or Tdap) [facility] Start: 02-21-2025 Adult BMI Screening Adult BMI Screen ing [facility] Start: 02-21-2025 Depression Screening Depression Scre ening [facility] Start: 02-21-2025 Tobacco Screening Tobacco Screening [facility] Start: 10-05-2024 Screening for malign ant neoplasm of breast Mammogram [facility] Start: 08-31-2024 Adult BMI Screening Adult BMI Screen ing [facility] Start: 08-31-2024 Depression Screening Depression Scre ening [facility] Start: 08-31-2024 Tobacco Screening Tobacco Screening [facility] Start: 07-30-2024 Adult BMI Screening Adult BMI Screen ing [facility] Start: 07-30-2024 Depression Screening Depression Scre ening [facility] Start: 07-30-2024 Tobacco Screening Tobacco Screening [facility] Start: 06-29-2024 Adult BMI Screening Adult BMI Screen ing [facility] Start: 06-15-2024 Adult BMI Screening Adult BMI Screen ing [facility] Start: 06-15-2024 Depression Screening Depression Scre [facility] [facility] Start: 06-15-2024 Tobacco Scre[address] Tobacco Screening [facility] Start: 05-25-2024 Administration of varicella zoster vaccine Zoster (Shingles) Vaccine (1 of 2) [facility] Comment on above: Postponed from 11/16 (Patient Refused) Start: 05-25-2024 COVID-19 Vaccine ( season) COVID-19 Vaccine ( season) [facility] Comment on above: Postponed from 01/23 (Patient Refused) Start: 02-24-2024 End: 02-23-2025 CT Chest limited W contrast IV CT chest with contrast Imaging Routine Lung nodule, solitary Expected: 02/24/2024, Expires: 02/23/2025 [employer] Work Phone: Comment on above: Expected: 02/24/2024 , Expires: 02/23/2025 Start: 01-24-2024 COVID-19 Vaccine ( season) COVID-19 Vaccine ( season) [facility] Start: 01-24-2024 Influenza vaccination Influenza Vacc ine [facility] Start: 12-09-2023 Adult BMI Screening Adult BMI Screen ing [facility] Start: 12-09-2023 Depression Screening Depression Scre ening [facility] Start: 12-09-2023 Tobacco Screening Tobacco Screening [facility] Start: 09-01-2023 End: 09-01-2023 Patient encounter procedure 09/01/2023 3:30 PM EDT Office Visit [facility] Internal Medicine - Family Medicine [address] [place] [address] Rohith Archer, [address], [facility] [address] [facility] Internal [facility] - Family Medicine Start: 09-01-2023 End: 08-31-2024 CT Chest for screening WO contrast CT low dose lung screening (Annual) Imaging Routine Ex-cigarette smoker Expected: 09/01/2023, Expires: 08/31/2024 [email or web address]: Comment on above: Expected: 09/01/2023 , Expires: 08/31/2024 Start: 09-01-2023 End: 08-31-2024 DBT Breast - bilateral screening Mammography screening bilateral with CAD Imaging Routine Encounter for screening mammogram for malignant neoplasm of breast Expected: 09/01/2023, Expires: 08/31/2024 [facility] Comment on above: Expected: 09/01/2023 , Expires: 08/31/2024 Start: 07-31-2023 End: 07-30-2024 XR Shoulder - left 2 Views X-ray shoulder left minimum 2 views Imaging Routine Acute pain of left shoulder Expected: 07/31/2023, Expires: 07/30/2024 [employer] Work Phone: Comment on above: Expected: 07/31/2023 , Expires: 07/30/2024 Start: 07-01-2023 End: 07-01-2024 Echo stress treadmill W/O contrast Echo stress treadmill W/O contrast Cardiac Services Routine Other chest pain Ventricular premature depolarization Expected: 07/01/2023, Expires: 07/01/2024 [employer] Work Phone: Comment on above: Expected: 07/01/2023 , Expires: 07/01/2024 Start: 06-17-2023 End: 06-17-2024 Exercise stress test study Stress test (exercise only) [facility] Services Routine Other chest pain Expected: 06/17/2023, Expires: 06/17/2024 [employer] Work Phone: Comment on above: Expected: 06/17/2023 , Expires: 06/17/2024 Start: 06-15-2023 End: 06-15-2024 XR Ribs - left Views and Chest PA X-ray ribs left 3 views with pa chest Imaging Routine Acute chest wall pain Expected: 06/15/2023, Expires: 06/15/2024 [employer] Work Phone: Comment on above: Expected: 06/15/2023 , Expires: 06/15/2024 Start: 01-23-2023 COVID-19 Vaccine ( season) COVID-19 Vaccine ( season) [facility] Start: 01-23-2023 Influenza vaccination Influenza Vacc ine [facility] Start: 2010 Administration of varicella zoster vaccine Zoster (Shingles) Vaccine (1 of 2) [facility] Start: 2000 Screening for malign ant neoplasm of breast Mammogram [facility] Start: 1981 Screening for malign ant neoplasm of cervix Pap Smear [facility] End: 02-23-2025 Creatinine includes GFR, serum Creatinine includes GFR, serum Lab Routine Lung nodule, solitary 1 Occurrences starting 02/24/2024 until 02/23/2025 [facility] Comment on above: 1 Occurrences starti ng 02/24/2024 until 02/23/2025 Immunizations Immunization Date Immunization Notes Care Provider Fa jorge albertoty 03-22-2019 Influenza, injectabl e, Madin Selina Canine Kidney, quadrivalent with preservative Rohith Archer DO Work Phone: [facility] 03-22-2019 tetanus toxoid, redu jenn diphtheria toxoid, and acellular pertussis vaccine, adsorbed Rohithgela Archer DO Work Phone: [facility] 03-22-2019 influenza virus vaccine, unspecified formulation Rohith Archer DO Work Phone: [facility] Payers Date Payer Category Payer Self-pay [id number] 2016 Private Health Insurance 1960 Unknown [id number] 2.16.84 [id number] 1960 Unknown [id number] 2.16.84 0.1.254906.3.579.2.593 1960 Unknown [id number] 2.16.8 40.1.585611.3.579.2.727 1960 Unknown [id number] 2.16.8 40.1.197479.3.579.2.727 1960 Unknown [id number] 2.16.8 40.1.065044.3.579.2.1286 1960 Unknown [id number] 2.16.8 40.1.615588.3.579.2.1286 1960 Unknown [id number] 2.16.8 40.1.642444.3.579.2.1286 1960 Unknown [id number] 2.16.8 40.1.506073.3.579.2.1286 1960 Unknown [id number] 2.16.8 40.1.282347.3.579.2.1286 1960 Unknown [id number] 2.16.8 40.1.066198.3.579.2.1286 1960 Unknown [id number] 2.16.84 0.1.410720.3.579.2.1286 1960 Unknown [id number] 2.16. 840.1.082345.3.579.2.196 1960 Unknown [id number] 2.16. 840.1.168790.3.579.2.196 1960 Unknown [id number] 2.16. 840.1.559740.3.579.2.196 1960 Unknown [id number] 2.16. 840.1.896353.3.579.2. 1960 Unknown [id number] 2.16. 840.1.562015.3.579.2. 1960 Unknown [id number] 2.16. 840.1.454716.3.579.2. 1960 Unknown [id number] 2.16. 840.1.831163.3.579.2.196 1960 Unknown [id number] 2.16. 840.1.850320.3.579.2. 1960 Unknown [id number] 2.16. 840.1.284139.3.579.2. 1960 Unknown [id number] 2.16. 840.1.322653.3.579.2. 1960 Unknown [id number] 2.16. 840.1.336643.3.579.2.196 1959 Private Health Insurance [id number] Private Health Insurance [id number] 2.16.840.1.383050.19 Unknown [id number] 2.16.8 40.1.924156.3.579.2.531 Social History Date Type Detail Facility Unknown if ever smoked [employer] Other Start: 08-25-2022 End: 09-01-2023 Sex Assigned At [employer] Other Start: 1960 Sex Assigned At Female [facility] Start: 08-25-2022 End: 02-22-2024 Tobacco smoking status NHIS Ex-smoker [facility] Start: 11-17-1973 End: 11-28-2020 History of tobacco use Current smoker [facility] Start: 11-17-1973 End: 11-28-2020 History of tobacco use Cigarette Smoker [facility] Start: 08-25-2022 End: 09-01-2023 Cigarettes smoked current (pack per day) - Reported [address] [facility] Start: 08-25-2022 End: 02-22-2024 Tobacco use and exposure Smokeless tobacco non-user [facility] Start: 01-22-2023 End: 02-24-2024 Alcohol intake Lifetime non-drinker (finding) [facility] Do you belong to any clubs or organizations such as confucianist groups, unions, fraSkyscanner or athletic groups, or school groups? No [facility] Are you now , , , , never or living with a partner? Never [facility] How often to you hav e a drink containing alcohol? Never [facility] How many standard dr inks containing alcohol do you have on a typical day? Patient does not drink [facility] Do you feel stress - tense, restless, nervous, or anxious, or unable to sleep at night because your mind is troubled all the time - these days [OSQ] Only a little [facility] Start: 1960 Sex Assigned At Not on file [facility] Clinical Notes 04-17-2021 to 02-29-2024 Rohith Archer, DO - 02/22/2024 11:00 AM Elenita Archer, DO - 09/01/2023 3:30 PM ZI Jara - 08/07/2023 12:21 PM Elenita Archer, DO - 07/31/2023 10:45 AM EST Note Date & Type Note Facility [...] Auto 7.4 % (Low) 02/27/2024 04:54 EDT [place] Auto 9.5 % 02/28/2024 04:54 EDT [place] Auto 7.8 % 02/27/2024 04:54 EDT Eos Auto 0.8 % 02/28/2024 04:54 EDT Eos Auto 0.0 % 02/27/2024 04:54 EDT [place] Auto 0.8 % 02/28/2024 04:54 EDT [place] Auto 0.3 % 02/27/2024 04:54 EDT Neutro Absolute 5.3 x10 Neutro Absolute 9.9 x10 Lymph Absolute 2.2 x10 Lymph Absolute 0.9 x10 [place] Absolute 0.8 x10 [place] Absolute 0.9 x10 Eos Absolute 0.1 x10 [...] Senait RODRÍGUEZ, Iván Kimble 03/02/24 10:56 EDT [facility] 02-26-2024 Note Clinical Information Procedure: Sigmoid [...] colon, removed for repair of rectal prolapse. [id number] Markie Garcia MD PhD (Electronically signed by) Verified: 03/02/24 14:20 [facility] Comment on above: Performed By: #### S SD #### [facility] (DEFAULT) [address] [place] [address] 02-22-2024 History of Present illness Narrative Subjective Patient ID: Petrona Gordon is a 63 y.o. female. She is going to have surgery on her colon 02/26/2024 for rectal prolapse. She had a stress test earlier this year and stopped due to fatigue and shortness of breath. She did reach her goal heart rate. The there were no areas of hypokinesis on the echocardiogram. It was interpreted as intermediate risk because of her fatigue and shortness a breath. She does have known COPD. She used to take Bevespi and an albuterol inhaler for shortness a breath but she stopped both of those because she felt fine . She feels like she does not need them. No recent illness. She can walk 10 minutes without getting short of breath or chest pain like when she goes to [employer] and the [employer]. She had pre-surgical testing last week. Pre-op Exam The following portions of the patient's history were reviewed and updated as appropriate: allergies, current medications, past family history, past medical history, past social history, past surgical history, problem list, and medication reconciliation was completed including current medication and post discharge medication. Review of Systems Constitutional: Negative. HENT: Negative. Eyes: Negative. Respiratory: Negative. Cardiovascular: Negative. Gastrointestinal: Negative. Endocrine: Negative. Genitourinary: Negative. Allergic/Immunologic: Negative. Neurological: Negative. Hematological: Negative. Psychiatric/Behavioral: Negative. Objective Physical Exam Constitutional: General: She is not in acute distress. HENT: Head: Normocephalic. Nose: Nose normal. Mouth/Throat: Lips: [place]. Mouth: Mucous membranes are moist. Dentition: Has dentures. Pharynx: Oropharynx is clear. No pharyngeal swelling or posterior oropharyngeal erythema. Eyes: General: No scleral icterus. Extraocular Movements: Extraocular movements intact. Conjunctiva/sclera: Conjunctivae normal. Neck: Vascular: No carotid bruit. Cardiovascular: Rate and Rhythm: Normal rate and regular rhythm. Pulses: Normal pulses. Heart sounds: Normal heart sounds. No murmur heard. Pulmonary: Effort: Pulmonary effort is normal. No respiratory distress. Breath sounds: No wheezing, rhonchi or rales. Abdominal: General: Bowel sounds are normal. Palpations: Abdomen is soft. There is no mass. Tenderness: There is no abdominal tenderness. Hernia: No hernia is present. Musculoskeletal: Cervical back: Neck supple. Right lower leg: No edema. Left lower leg: No edema. Lymphadenopathy: Cervical: No cervical adenopathy. Skin: General: Skin is warm. Neurological: General: No focal deficit present. Mental Status: She is alert and oriented to person, place, and time. Cranial Nerves: Cranial nerves 2-12 are intact. Gait: Gait is intact. Psychiatric: Attention and Perception: Attention normal. Mood and Affect: Mood and affect normal. Speech: Speech normal. Behavior: Behavior normal. Behavior is cooperative. Thought Content: Thought content normal. Cognition and Memory: Cognition normal. Judgment: Judgment normal. Assessment/Plan Petrona was seen today for pre-op exam. Diagnoses and all orders for this visit: Pre-op evaluation She is able to do 4 Mets of activity without angina symptoms. She did have a stress echo earlier this year and she reached her target heart rate and the echo did not reveal any wall motion abnormalities. She is medically cleared for surgery. No further cardiac workup is indicated. Chronic obstructive pulmonary disease, unspecified COPD type (CMS-HCC) She does have COPD so should take pulmonary precautions postoperatively with pulmonary toilet, aerosol treatments and possibly oxygen supplementation if needed. Rectal prolapse Follow up with surgeon for treatment. documented in this encounter [facility] 09-01-2023 History of Present illness Narrative Subjective Patient ID: Petrona Gordon is a 62 y.o. female. Petrona presents for her annual wellness. She has a couple other concerns. She is still having left-sided back pain. It is a liltle better than what it was. She is also having a lot of charley horses-mostly at night. She has tried pickle juice and OTC for muscle cramps but it isn't helping. The following portions of the patient's history were reviewed and updated as appropriate: allergies, current medications, past family history, past medical history, past social history, past surgical history, problem list, and medication reconciliation was completed including current medication and post discharge medication. Review of Systems Constitutional: Negative. HENT: Negative. Eyes: Negative. Respiratory: Negative. Cardiovascular: Negative. Gastrointestinal: Negative. Genitourinary: Negative. Musculoskeletal: Positive for back pain and myalgias. Skin: Negative. Neurological: Negative. Hematological: Negative. Psychiatric/Behavioral: Negative. Objective Physical Exam Constitutional: General: She is not in acute distress. Appearance: She is normal weight. HENT: Head: Normocephalic. Right Ear: Tympanic membrane, ear canal and external ear normal. Left Ear: Tympanic membrane, ear canal and external ear normal. Nose: Nose normal. Mouth/Throat: Lips: [place]. Mouth: Mucous membranes are moist. Pharynx: Oropharynx is clear. Eyes: General: No scleral icterus. Extraocular Movements: Extraocular movements intact. Conjunctiva/sclera: Conjunctivae normal. Cardiovascular: Rate and Rhythm: Normal rate and regular rhythm. Pulses: Normal pulses. Heart sounds: Normal heart sounds. No murmur heard. Pulmonary: Effort: Pulmonary effort is normal. No respiratory distress. Breath sounds: Normal breath sounds. No wheezing, rhonchi or rales. Abdominal: General: Bowel sounds are normal. There is no distension. Palpations: Abdomen is soft. There is no mass. Tenderness: There is no abdominal tenderness. Hernia: No hernia is present. Musculoskeletal: General: Tenderness present. Left shoulder: Tenderness present. No swelling, deformity, effusion, laceration, bony tenderness or crepitus. Normal range of motion. Normal strength. Normal pulse. Cervical back: Neck supple. Thoracic back: Spasms and tenderness present. No swelling, edema, deformity, signs of trauma, lacerations or bony tenderness. Normal range of motion. No scoliosis. Back: Comments: Negative empty can test. Segmental subluxation of 2 mid and low thoracic vertebrae Lymphadenopathy: Cervical: No cervical adenopathy. Skin: General: Skin is warm. Findings: Lesion (2 flesh colored papules on mid and upper back) present. Neurological: General: No focal deficit present. Mental Status: She is alert and oriented to person, place, and time. Psychiatric: Attention and Perception: Attention normal. Mood and Affect: Mood normal. Speech: Speech normal. Behavior: Behavior normal. Behavior is cooperative. Thought Content: Thought content normal. Cognition and Memory: Cognition normal. Judgment: Judgment normal. Assessment/Plan Petrona was seen today for annual exam. Diagnoses and all orders for this visit: Well adult health check - Comprehensive metabolic panel; Future - Lipid panel; Future Health maintenance discussed. Check labs. Colon cancer screen is up to date Thoracic region somatic dysfunction OMT to T spine with 2 segmental subluxations corrected. Check X-ray. Will try celecoxib 200 mg BID prn pain. Will also stop atorvastatin to see if that was causing pain. I suspect it is MS. She can't put topical agents on there because she can't reach it. Ex-cigarette smoker - CT low dose lung screening (Annual); Future Encounter for screening mammogram for malignant neoplasm of breast - Mammography screening bilateral with CAD; Future Check mammogram to screen for breast cancer. She would pursue further evaluation and treatment Myalgia Will stop atorvastatin to see if it is the cause. Can us celecoxib prn. Other orders - celecoxib (CeleBREX) 200 mg capsule; Take 1 capsule (200 mg total) by mouth in the morning and 1 capsule (200 mg total) before bedtime. documented in this encounter [facility] 08-07-2023 History of Present illness Narrative Spoke [...] Casey 08/07/23 1226 documented in this encounter [facility] 07-31-2023 History of Present illness Narrative Subjective [...] Negative empty can test. Equivocal impingement sign [id number] and Neer's test. Negative Adson's test. Neurological: [...] Shoulder exercises given. documented in this encounter [facility] [employer] 06-15-2023 History of Present illness Narrative Subjective [...] test No reproducible pain except with movement JanyCandice Muñoz APRN[employer] 06/15/23 1741 documented in this encounter [facility] [employer] 12-16-2022 Note Chief Complaint consultation for screening colonoscopy [facility] Staff 62 year old female presents on [...] Recorded SARS-CoV-2 (COVID-19) mRNA-1273 vaccine 09/20/2020 Recorded [facility] Comment on above: Result Comment: Elec [...] May, Right-sided chest pain (ICD-10 - R07.9) [employer] Other 07-09-2022 Evaluation note* Encounter Date Diagnosis [...] Patient care instructions given in writing by [facility] Home document. [employer] Other 11-24-2021 Evaluation note* Encounter Date Diagnosis [...] Patient care instructions given in writting by [facility] Home document. [employer] Other Evaluation noteNo assessment information available [facility] Work Phone: Evaluation note* Diagnosis Mixed hyperlipidemia [facility]* Diagnosis Acute chest wall pain- Primary documented in this encounter [facility] System[facility]* Diagnosis Other chest pain- Primary documented in this encounter [facility]* Diagnosis Acute chest wall pain- Primary documented in this encounter [facility] System[facility] note* Diagnosis Other chest pain- Primary Ventricular premature depolarization Other premature beats documented in this encounter [facility] System[facility] note* Diagnosis Acute pain of left shoulder- Primary documented in this encounter [facility] System[facility] note* Diagnosis Rib pain on right side- Primary documented in this encounter [facility] System[facility] note* Diagnosis Well adult health check- Primary Unspecified general medical examination Thoracic region somatic dysfunction Nonallopathic lesion of thoracic region, not elsewhere classified Ex-cigarette smoker Personal history of tobacco use, presenting hazards to health Encounter for screening mammogram for malignant neoplasm of breast Myalgia Unspecified myalgia and myositis documented in this encounter [facility] SystemEvaluation note* Diagnosis Pre-op evaluation- Primary Chronic obstructive pulmonary disease, unspecified COPD type ([facility]) Rectal prolapse documented in this encounter [facility] SystemEvaluation note* Diagnosis Lung nodule, solitary- Primary documented in this encounter [facility] SystemHistory general Narrative - Reported* Type Description Date Surgical History tonsillectomy Surgical History cholecystectomy Surgical History tubal ligation Surgical History cyst removal from neck Hospitalization History see above [employer] Other InstructionsNot on filedocumented in this encounter [facility] SystemInstructionsNot on filedocumented in this encounter [facility] filedocumented in this encounter [facility] System[facility]Not on filedocumented in this encounter [facility]* Attachments The following attachments cannot be sent through Care Everywhere. * Rotator Cuff Tendinitis Stretching Exercises (Tanzanian) * Shoulder Bursitis Exercises (Tanzanian) [facility] SystemInstructionsNot on file documented in this encounterProMobile [facility] SystemInstructionsNot on file documented in this encounterProMobile [facility] SystemInstructionsNot on file documented in this [facility]Pro[facility] SystemInstructionsNot on file [facility] Advance Directives Advance Directive Response Recorded Date/ Time Advance [...] solitary Procedures CT chest with contrast Rohith Archer, DO [address] [facility] [address] Referral ID Status Reason Start Date Expiration Date V isits Requested Visits Authorized [id number] Pending Review 02/24/2024 02/23/2025 1 1 Specialty Diagnoses / Procedures Referred By Contac t Referred To Contact Diagnoses Ex-cigarette smoker Procedures CT low dose lung screening (Annual) Rohith Archer DO [address] [facility], [facility] [place] [address] Referral ID Status Reason Start Date Expiration Date V isits Requested Visits Authorized [id number] Pending Review 09/01/2023 08/31/2024 1 1 Specialty Diagnoses / Procedures Referred By Contac t Referred To Contact Diagnoses Other chest pain Ventricular premature depolarization Procedures Echo stress treadmill W/O contrast Anais Muñoz, [employer] [address] [place] [address] Referral ID Status Reason Start Date Expiration Date V isits Requested Visits Authorized [id number] Pending Review 07/01/2023 06/30/2024 5 5 Specialty Diagnoses / Procedures Referred By Julianna t Referred To Contact Diagnoses Other chest pain Procedures Stress test (exercise only) Toni Jany, [employer] [address] [place] [address] Referral ID Status Reason Start Date Expiration Date V isits Requested Visits Authorized [id number] Pending Review 06/17/2023 06/16/2024 5 5 Additional Source Comments REASON FOR VISIT (unrecogniz ed section and content) Reason Comments Med Refill Reason Comments Cough Chest pain. 3 weeks Reason Comments Shoulder Pain Reason Comments Annual Exam Hand and back hurt s o bad. Been taking Tylenol arthritis, Aleve back and body also Reason Comments Pre-op Exam Colon 02/25 Care Teams (unrecognized sec tion and content) Team Status: Inactive Member Role Status Dates Rohith Archer DO Primary Care Provider Active JENNIE SteeleC Attending Provider Active Team Status: Active Member Role Status Dates Rohith Archer DO Primary Care Provider Active Lube Attendant Relationship Specialty Start Date End Date Rohith Archer DO [address], [facility] [address] PCP - General Family Medicine 06/02/22 Lube Attendant Relationship Specialty Start Date End Date Rohith Archer DO [address] [facility] [place] [address] PCP - General Family Medicine 06/02/22 Lube Attendant Relationship Specialty Start Date End Date Rohith Archer DO [address], [place] [address] PCP - General Family Medicine 06/02/22 Lube Attendant Relationship Specialty Start Date End Date Rohith Archer DO [address], [place] [address] PCP - General Family Medicine 06/02/22 Lube Attendant Relationship Specialty Start Date End Date Rohith Archer DO [address], [place] [address] PCP - General Family Medicine 06/02/22 Lube Attendant Relationship Specialty Start Date End Date Rohith Archer DO [address], [place] [address] PCP - General Family Medicine 06/02/22 Lube Attendant Relationship Specialty Start Date End Date Rohith Archer DO [address], [place] [address] PCP - General Family Medicine 06/02/22 Lube Attendant Relationship Specialty Start Date End Date Rohith Archer DO [address], [place] [address] PCP - General Family Medicine 06/02/22 Lube Attendant Relationship Specialty Start Date End Date Rohith Archer DO [address], [place] [address] PCP - General Family Medicine 06/02/22 Goals (unrecognized section and content) Goals may be documented in a n alternate section INFORMATION SOURCE (unrecogn ized section and content) DATE CREATED AUTHOR 06/18/2022 [facility] DATE CREATED AUTHOR AUTHOR'S ORGANIZ ATION 10/03/[address] [facility] DATE CREATED AUTHOR AUTHOR'S ORGANIZ ATION 01/22/2023 [facility] DATE CREATED AUTHOR AUTHOR'S ORGANIZ ATION 07/24/2023 [facility] DATE CREATED AUTHOR AUTHOR'S ORGANIZ ATION 09/03/2023 [facility] DATE CREATED AUTHOR AUTHOR'S ORGANIZ ATION 02/23/2024 [facility] DATE CREATED AUTHOR AUTHOR'S ORGANIZ ATION 04/18/2024 [facility] FOR RECORDS PERTAINING TO PATIENTS WHO [...] BE BASED ON THE PRIMARY CLINICAL RECORDS. [facility]. provides no warranty or guarantee of the accuracy or completeness of information in this document.
--- NOTE | 2025-01-13 17:09 | XR_ITS ---
The [address] [address] Patient Name: PETRONA GORDON MRN: [id number] date: 1960 Sex: F Assigned Patient Location: ER Current Patient Location: ER Accession/Order Number: [id number] Exam Date: 01/13/2025 17:20 Report Date: 01/13/2025 17:48 At the request of: HECTOR ARTIS Procedure: XR chest 1V Plain film chest Single view HISTORY: Chest pain since yesterday. COMPARISON: CT chest 03/03/2024 FINDINGS: SUPPORT DEVICES: None POSTSURGICAL CHANGES: None HEART: Within normal limits PULMONARY JOSE: Within normal limits MEDIASTINUM: Unremarkable LUNGS AND PLEURA: No acute lung process, pleural effusion or pneumothorax identified. Hyperinflation. BONY STRUCTURES: Intact ADDITIONAL FINDINGS None XR/XR chest 1V IMPRESSION: No acute process. Impression dictated by: Jovanny Pinedo M.D. 01/13/2025 5:48 PM Dictation Location: [email or web address] Electronically authenticated by: [id number] Y Date: 01/13/2025 17:48
--- NOTE | 2025-01-13 17:09 | ECG_ITS ---
The [facility] Test Date: 2025-01-13 Pat Name: PETRONA GORDON Department: Room: - Gender: Female Service Cashier: : 1960 Requested By: [id number] Order Number: [id number] Reading MD: LIO KIRBY Measurements Intervals Gerlaw Rate: 80 P: 78 MI: 176 QRS: 71 QRSD: 66 T: 81 QT: 344 QTc: 380 Interpretive Statements 1100 Sinus rhythm 9110 normal ECG Compared to ECG 10/16/2016 01:02:11 Sinus arrhythmia no longer present Electronically Signed On 01-16-2025 12:19:45 EDT by LIO KIRBY
--- NOTE | 2025-01-13 17:17 | ED.CHESTPAI1 ---
HPI - Chest Pain General Chief Complaint: Chest Pain Stated Complaint: BLOOD PRESSURE HIGH/ LEFT ARM HURTS CHEST PAINS Time Seen by Provider: 01/13/25 16:58 Source: patient Mode of arrival: walk-in Limitations: no limitations History of Present Illness HPI narrative: Patient presents to the ED with a complaint of chest pain. She hurts in the middle of her chest and describes it as an achiness. She has found nothing that makes it better or worse. She is not short of breath. She also states she has pain in her left. She states it feels tight and gets irritated with movement. She has had a longstanding history of neck and left shoulder pain in the past secondary to some rotator cuff issues. She does not take anything for the symptoms other than Excedrin and aspirin. She denies any abdominal pain nausea vomiting Related Data Allergies Allergy/AdvReac Type Severity Reaction Status Date / Time No Known Drug Allergies Allergy Verified 01/13/25 16:54 PFSH PFS Medical History (Updated 01/13/25 @ 20:59 by STEFF MALDONADO) FHx: cholecystectomy ?Z83.79 - Family history of other diseases of the digestive system (ICD-10) Surgical History (Updated 01/05/23 @ 11:07 by Sandra Cid) H/O tubal ligation ?Z98.51 - Tubal ligation status (ICD-10) Hx of tonsillectomy ?Z90.89 - Acquired absence of other organs (ICD-10) H/O basal cell carcinoma excision ?Z98.890 - Other specified postprocedural states (ICD-10) ?Z85.828 - Personal history of other malignant neoplasm of skin (ICD-10) Family History (Updated 01/05/23 @ 11:12 by Sandra Garner) Other Family history of COPD (chronic obstructive pulmonary disease) Family history of cancer Family history of myocardial infarction Social History (Updated 01/05/23 @ 11:20 by Sandra Garner) Within the past year, how often did you have a drink containing alcohol: never Score interpretation: A score less than 3 is consistent with normal alcohol consumption. Smoking status: Former smoker Non-prescribed substance use: denies use Previous occupational history: TELEPHONIC RN Highest level of school completed/degree received: some college, no degree Little interest or pleasure in doing things: not at all Feeling down, depressed, or hopeless: not at all Exam Constitutional Vital Signs, click to edit/add: Last Vital Signs Temp 98.3 F 01/13/25 16:54 Pulse 74 01/13/25 20:00 Resp 21 H 01/13/25 20:00 BP 143/87 H 01/13/25 20:00 Pulse Ox 93 L 01/13/25 16:57 O2 Del Method Room Air 01/13/25 16:54 Documenting provider has reviewed patient's vital signs: yes Common normals: no apparent distress, average body habitus, oriented x3, no limitations, healthy appearing, alert and well nourished [facility] Common normals: normocephalic, head/scalp atraumatic, hearing grossly normal bilaterally, external ears normal, EACs normal, TMs normal bilaterally, external nose normal, nasal mucous membranes and turbinates normal, moist oral mucous membranes and oropharynx normal Neck & C-Spine Common normals: full ROM, no lymphadenopathy, supple, no meningeal signs and no JVD Cervical spine: trapezius muscle tenderness left Chest Common normals: inspection of chest normal and palpation of chest normal Respiratory Common normals: normal respiratory effort and clear to auscultation bilaterally Cardio Common normals: regular rate, regular rhythm, S1 normal heart sound, S2 normal heart sound, no murmurs and peripheral pulses 2+ throughout GI Common normals: Normal to inspection, nondistended, normoactive bowel sounds present, soft to palpation, non-tender, no masses and no bruits Back & Pelvis Common normals: no CVA tenderness, thoracic and lumbar spine normal to inspection, no thoracic nor lumbar tenderness, thoraco-lumbar ROM normal and straight leg raise negative bilaterally Neuro Common normals: oriented x3, moves all extremities, no focal motor deficits and no sensory deficits noted Psych Common normals: mental status grossly normal, thought process normal, cooperative, affect normal and activity/motor behavior normal Course Vital Signs Vital signs: Vital Signs Temperature 98.3 F 01/13/25 16:54 Pulse Rate 88 01/13/25 16:54 Respiratory Rate 16 01/13/25 16:54 Blood Pressure 141/84 01/13/25 16:54 Oxygen Delivery Method Room Air 01/13/25 16:54 Temperature 98.3 F 01/13/25 16:54 Pulse Rate 74 01/13/25 20:00 Respiratory Rate 21 H 01/13/25 20:00 Blood Pressure 143/87 H 01/13/25 20:00 Pulse Oximetry 93 L 01/13/25 16:57 Oxygen Delivery Method Room Air 01/13/25 16:54 MDM - Chest Pain MDM Narrative Medical decision making narrative: Patient presents to the ED with a complaint of chest pain. She hurts in the middle of her chest and describes it as an achiness. She has found nothing that makes it better or worse. She is not short of breath. She also states she has pain in her left. She states it feels tight and gets irritated with movement. She has had a longstanding history of neck and left shoulder pain in the past secondary to some rotator cuff issues. She does not take anything for the symptoms other than Excedrin and aspirin. She denies any abdominal pain nausea vomiting or diarrhea she states she was anxious about her heart because she had a sister that had 5 heart attacks as early as 39. She used to be a smoker but quit 4 years ago. On exam patient is resting comfortably in her room. Her heart and lung sounds are clear. She does not have any palpable tenderness in the chest wall. Abdomen is soft and nontender. She does have spasm in the left upper trapezius area. No cervical tenderness. Good pulses distally in all 4 extremities no pedal edema. Patient does not appear in any distress. Patient's labs did not show acute change in her troponin. Her EKG was completely normal chest x-ray was clear. Patient does not have any risk factors such as using hormones, recent travel, recent surgery, cancer. Vital signs show her to be hypertensive otherwise vital signs are normal. She does monitor her blood pressure fairly closely she was little anxious about the blood pressure. She has an appointment with her doctor in 4 days I encouraged her to take her blood pressure twice a day and keep a record so that she could discuss this with her family doctor. Since patient does have pain in the lower mid chest I did give her a GI cocktail to see if that helped with her symptoms that did seem to resolve her symptoms at this time. Her LFTs and lipase was negative so I do not believe this is gallbladder origin. Heart score of 2 due to age an risk factors. Patient can continue home care at this time. She is to return with any worse or concerning symptoms. She was given strict return to ED precautions. She is going to follow-up with her PCP next week. Medical Records Data Attestation: I reviewed the patient's medical records. Lab Data Attestation: I reviewed the patient's lab results. Labs: Lab Results 01/13/25 01/13/25 Range/Units 17:11 19:06 WBC 7.5 (4.0-11.0) 10^3/uL RBC 4.75 (4.20-5.40) 10^6/uL Hgb 15.1 (12.0-16.0) g/dL Hct 44.0 (36.0-48.0) % MCV 92.6 (81.0-99.0) fL MCH 31.8 (26.7-34.0) pg MCHC 34.3 (29.9-35.2) g/dL RDW 12.3 (11.0-15.0) % Plt Count 349 (150-450) 10^3/uL MPV 10.0 (9.5-13.5) fL Neut % (Auto) 62.0 (43.0-75.0) % Lymph % (Auto) 27.2 (20.5-60.0) % [place] % (Auto) 7.7 (1.7-12.0) % Eos % (Auto) 1.6 (0.9-7.0) % Baso % (Auto) 1.2 (0.2-2.0) % Neut # (Auto) 4.7 (1.4-6.5) 10^3/uL Lymph # (Auto) 2.1 (1.2-3.8) 10^3/uL [place] # (Auto) 0.6 (0.3-0.8) 10^3/uL Eos # (Auto) 0.1 (0.0-0.7) 10^3/uL Baso # (Auto) 0.1 (0.0-0.1) 10^3/uL Abs Immat Gran (auto) 0.02 (0.00-0.03) 10^3/uL Imm/Tot Granulo (auto) 0.3 (0.0-0.5) % PT 10.3 (9.0-11.6) sec INR 0.97 Sodium 141 (136-145) mmol/L Potassium 4.1 (3.5-5.1) mmol/L Chloride 103 (98-107) mmol/L Carbon Dioxide 29.0 (21.0-32.0) mmol/L Anion Gap 13.1 BUN 16.0 (7.0-18.0) mg/dL Creatinine 0.64 (0.55-1.02) mg/dL Est GFR ( Amer) >60 (>=60 mL/min/1.73m^2) Est GFR (Non-Af Amer) >60 (>=60 mL/min/1.73m^2) BUN/Creatinine Ratio 25.0 Glucose 108 H (74-106) mg/dL Calcium 10.1 (8.5-10.1) mg/dL Total Bilirubin 0.4 (0.2-1.0) mg/dL AST 20 (15-37) U/L ALT 23 (14-59) U/L Alkaline Phosphatase 93 (46-116) U/L Troponin I High Sens <4.0 L 4.7 (4.0-51.3) pg/mL Total Protein 7.5 (6.4-8.2) g/dL Albumin 3.9 (3.4-5.0) g/dL Globulin 3.6 g/dL Albumin/Globulin Ratio 1.1 Lipase 41.0 (16.0-77.0) U/L Imaging Data Chest x-ray: Attestation: I have reviewed the pertinent imaging results. Radiologist's impression: ITS Impressions Chest X-Ray 01/13/25 17:09 IMPRESSION: No acute process. Impression dictated by: Jovanny Pinedo M.D. 01/13/2025 5:48 PM Dictation Location: [place] [address] Electronically authenticated by: [id number] Y Date: 01/13/2025 17:48 ECG Data Attestation: I personally reviewed and interpreted this ECG as follows: ECG interpretation date: 01/13/25 ECG interpretation time: 17:10 Prior ECG tracings: not available for review Interpretation: Patient has sinus rhythm with a ventricular rate of 80. MI interval 176, QRS is 66, QT/QTc of 344/380. Patient has normal intervals she has no ST depression or elevation. T waves are appropriate. This is a normal EKG and sinus rhythm is noted. Heart Score History: Slightly/Non-Suspicious ECG: Normal Age: >45-<65 years Risk Factors: 1 or 2 Risk Factors Troponin: <Normal Limit Total Heart Score Recommendations & Risks:: 2 Discharge Plan Discharge Chief Complaint: Chest Pain Clinical Impression: Chest pain, Elevated blood pressure reading Patient Disposition: Home, Self-Care Time of Disposition Decision: 20:58 Condition: Good Print Language: [place] Instructions: Chest Pain (ED), Hypertension (ED) Additional Instructions: Follow-up with your PCP in 4 days as scheduled. As we discussed keep a log of your blood pressure twice a day for him to review. Please return with any worse or concerning symptoms. Today your 2 set troponin did not show any acute changes. Your EKG was appropriate. Chest x-ray was clear. Heart score is 2 which is considered low risk. Follow-up with your PCP. Referrals: RELL JEFFERSON [Primary Care Provider, Family Practice] - 1 week Referral Note: As scheduled next week Discharge Date/Time: 01/13/25 21:14
[2025-01-13] MEDS: ASPIRIN 325 MG TABLET PO (17:26)
[2025-01-13 18:23] LABS: Hematocrit 44.0 % (36.0-48.0); Hemoglobin 15.1 g/dL (12.0-16.0); Immature Granulocytes Abs Auto 0.02 10^3/uL (0.00-0.03); Immature Granulocytes Pct Auto 0.3 % (0.0-0.5); Lymphocytes Absolute Auto 2.1 10^3/uL (1.2-3.8); Mean Corpuscular HGB Conc 34.3 g/dL (29.9-35.2); Mean Corpuscular Hemoglobin 31.8 pg (26.7-34.0); Mean Corpuscular Volume 92.6 fL (81.0-99.0); Platelet Count 349 10^3/uL (150-450); Red Blood Count 4.75 10^6/uL (4.20-5.40); White Blood Count 7.5 10^3/uL (4.0-11.0)
[2025-01-13 18:27] LABS: INR 0.97; Lipase 41.0 U/L (16.0-77.0); Prothrombin Time 10.3 sec (9.0-11.6)
[2025-01-13 18:36] LABS: Alanine Aminotransferase 23 U/L (14-59); Albumin Globulin Ratio 1.1; Albumin Level 3.9 g/dL (3.4-5.0); Alkaline Phosphatase 93 U/L (46-116); Anion Gap 13.1; Aspartate Amino Transferase 20 U/L (15-37); Blood Urea Nitrogen 16.0 mg/dL (7.0-18.0); Calcium 10.1 mg/dL (8.5-10.1); Carbon Dioxide 29.0 mmol/L (21.0-32.0); Chloride 103 mmol/L (98-107); Estimated GFR (African America >60 (>=60 mL/min/1.73m^2); Estimated GFR (Non-African Ame >60 (>=60 mL/min/1.73m^2); Globulin 3.6 g/dL; Glucose 108 mg/dL (74-106); Potassium 4.1 mmol/L (3.5-5.1); Sodium 141 mmol/L (136-145); Total Protein 7.5 g/dL (6.4-8.2)
[2025-01-13] MEDS: METOPROLOL TARTRATE 25 MG TABLET PO (19:55)
[2025-01-13] MEDS: lidocaine HCL 15 ML, MAG HYDROX/ALUMINUM HYD/SIMETH 30 ML, HYOSCYAMINE SULFATE 0.25 MG PO (20:45)
== END 2025-01-13 21:14 | disposition home or self-care (01) ==
PROVIDERS: Physician Assistant; Emergency Provider Student in an Organized Health Care Education/Training Program; PCP Family Medicine
DX: R07.9 Chest pain, unspecified (principal); R03.0 Elevated blood-pressure reading, without diagnosis of hypertension; Z98.51 Tubal ligation status; Z87.891 Personal history of nicotine dependence
CPT/HCPCS: 36415; 71045; 80053; 83690; 84484; 85025; 85610; 93005; 99285

== ENCOUNTER 2025-01-25 16:11 | Outpatient (OUT) | payer OTHER, SELFPAY ==
--- OUTSIDE RECORDS SUMMARY | 2025-01-19 15:15 | XMS_ITS | Encounter Summary ---
Author Organization [employer] tem Address [facility] [id number] [address] [place] [address] Care Team Providers Care Reverberatory Furnace Supervisor Name Role Phone Rohith Archer DO Primary Care Provider [phone] Reason for Referral * Diagnostic Imaging (Routine) - Pending Review Specialty Diagnoses / Procedures Referred By Julianna mcleod Referred To Contact Diagnoses Ex-cigarette smoker Procedures CT low dose lung screening (Annual) Rohith Archer DO [address], [place] [address] Phone: tel: fax: Referral ID Status Reason Start Date Expiration Date V isits Requested Visits Authorized [id number] Pending Review 01/19/2025 01/19/2026 1 1 Reason for Visit * Reason Comments wellness Encounter Details Date Type Department Care Team (Late st Contact Info) Description 01/19/2025 3:15 PM EDT Office Visit [facility] Internal Medicine - Family Medicine [address] [place] [address] Rohith Archer DO [address], [place] [address] Well adult exam (Primary Dx); Chronic obstructive [...] drink = 0.6 oz pur e alcohol) [facility] Utilities Answer Date Recorded In [...] often do you attend chur ch or adventist services? Never 08/25/2022 Do you belong to any clubs o r organizations such as roman catholic groups, unions, fraternal or athletic groups, [...] Answer Date Recorded Total Score 0 01/19/2025 [facility] [place] of Occupat ional Health - Occupational Stress [...] Recorded Do you need help finding a [employer] [facility] center and/or a training program? No 08/25/2022 [...] Chronic obstructive pulmonary disease, unspecified COPD type ([place] [facility]) She has known COPD. She had [...] check electrolytes. Continue with pickle juice an eghl-mcn-wvpbicw supplements for leg cramps. Ensure adequate hydration. Chronic bilateral low back pain without sciatica - X-ray spine lumbar 2 or 3 views; Future She is having chronic low back pain without any imaging thumb going to check an x-ray of her lumbarspine. Consider pain management, physical therapy. Can try vcpj-lqk-tjsdsgj analgesics Acute pain of left shoulder - X-ray shoulder left minimum 2 views; Future Symptoms seem to be consistent with impingement syndrome possibly rotator cuff injury. Try shoulderexercises. Consider cortisone injections, physical therapy. Check x-ray of left shoulder We will recheck in 1 year but she can come back sooner for further management of her shoulder and back pain. Bruno Serrato, MS3 [facility] of Medicine and Life Sciences documented in this encounter Plan of Treatment Upcoming Encounters Date Type Department Care Team (Late st Contact Info) Description 02/03/2025 1:30 PM EDT Appointment [facility] [address] [place] [address] 02/03/2025 3:30 PM EDT Appointment [facility] [address] [place] [address] Scheduled Orders Name Type Priority Associated Diagnoses Orde r Schedule CT low dose lung screening (Annual) Imaging Routine Ex-cigarette smoker Expected: 01/19/2025, Expires: 01/19/2026 X-ray spine lumbar 2 or 3 views Imaging Routine Chronic bilateral low back pain without sciatica Expected: 01/19/2025, Expires: 01/19/2026 Vas art doppler lwr limited single Vascular Ultrasound Routine Pain in both lower extremities Expected: 01/19/2025, Expires: 01/19/2026 Vas art duplex lwr bilateral Vascular Ultrasound Routine Pain in both lower extremities Expected: 01/19/2025, Expires: 01/19/2026 X-ray shoulder left minimum 2 views Imaging Routine Acute pain of left shoulder Expected: 01/19/2025, Expires: 01/19/2026 documented as of this encounter Procedures Procedure Name Priority Date/Time Associated Diagnosis Comments MAGNESIUM Routine 01/19/2025 4:26 PM EDT Well adult exam LIPID PROFILE Routine 01/19/2025 4:26 PM EDT Well adult exam COMPREHENSIVE METABOLIC PANEL Routine 01/19/2025 4:26 PM EDT Well adult exam documented in this encounter Results * Magnesium (01/19/2025 4:26 PM EDT) MAGNESIUM 2.1 1.8 - 2.6 mg/dL 01/19/2025 10:31 PM EDT [facility] Blood Venous blood / Unknown 01/19/2025 4:26 PM EDT 01/19/2025 4:27 PM EDT us Rohith Archer DO LAB BLOOD ORDERABLES Final R esult [facility] [address] [place] [address], [place] [phone] * (ABNORMAL) Lipid profile (01/19/2025 4:26 PM EDT) CHOLESTEROL 242(H) 150 - 200 mg/dL 01/19/2025 10:31 PM EDT [facility] TRIGLYCERIDE 138 27 - 150 mg/dL 01/19/2025 10:31 PM EDT [facility] HDL CHOLESTEROL 37(L) >39 mg/dL 10:31 PM EDT [facility] Comment: HDL <40 mg/dL - High Risk HDL > or = 40mg/dL- Desirable HDL >60 mg/dL - Negative Risk LDL (CALC) 177(H) <130 mg/dL 01/19/2025 10:31 PM EDT [facility] Comment: LDL <100 mg/dL - Desirable LDL >160 mg/dL - High Risk CHOLESTEROL:HDL 6.5(H) 1.0 - 5.0 10:31 PM EDT [facility] VERY LOW LIPOPROTEIN 28 0 - 30 mg/dL 01/19/2025 10:31 PM EDT [facility] Blood Venous blood / Unknown 01/19/2025 4:26 PM EDT 01/19/2025 4:27 PM EDT us Rohith Mario Archer DO LAB BLOOD ORDERABLES Final R esult [facility] [address] [place] [address], [place] [phone] * Comprehensive metabolic panel (01/19/2025 4:26 PM EDT) SODIUM 141 134 - 146 mmol/L 01/19/2025 10:31 PM EDT [facility] POTASSIUM 3.9 3.5 - 5.0 mmol/L 01/19/2025 10:31 PM EDT [facility] CHLORIDE 102 98 - 109 mmol/L 01/19/2025 10:31 PM EDT [facility] CARBON DIOXIDE 28 22 - 32 mmol/L 01/19/2025 10:31 PM EDT [facility] ANION GAP 11 5 - 15 mmol/L 01/19/2025 10:31 PM EDT [facility] BLOOD UREA NITROGEN 15 5 - 27 mg/dL 01/19/2025 10:31 PM EDT [facility] CREATININE 0.68 0.40 - 1.00 mg/dL 01/19/2025 10:31 PM EDT [facility] Comment:METHOD TRACEABLE TO IDMS STANDARD GLUCOSE 99 65 - 99 mg/dL 01/19/2025 10:31 PM EDT [facility] CALCIUM 9.6 8.5 - 10.5 mg/dL 01/19/2025 10:31 PM EDT [facility] TOTAL PROTEIN 7.2 6.0 - 8.0 g/dL 01/19/2025 10:31 PM EDT [facility] ALBUMIN 4.5 3.2 - 5.3 g/dL 01/19/2025 10:31 PM EDT [facility] ALKALINE PHOSPHATASE 88 39 - 130 U/L 01/19/2025 10:31 PM EDT [facility] AST 20 <=41 U/L 01/19/2025 10:31 PM EDT [facility] ALT 15 <=31 U/L 01/19/2025 10:31 PM EDT [facility] BILIRUBIN,TOTAL 0.5 0.3 - 1.2 mg/dL 01/19/2025 10:31 PM EDT [facility] EGFR Non-Race Dependent >90 >=60 ml/min/1.7 3sq.m 01/19/2025 10:31 PM EDT [facility] Comment: Reported eGFR is based on the CKD-EPI 2020 equation that does not use a race coefficient. Blood Venous blood / Unknown 01/19/2025 4:26 PM EDT 01/19/2025 4:27 PM EDT us Rohith Archer DO LAB BLOOD ORDERABLES Final R esult [facility] [address] [place] [address], documented in this encounter Visit Diagnoses Diagnosis [...] documented as of this encounter Care Teams Reverberatory Furnace Supervisor Relationship Specialty Start Date End Date Rohith Archer DO [address] [facility] [place] [address] PCP - General Family Medicine 06/02/22 documented as of this encounter
--- OUTSIDE RECORDS SUMMARY | 2025-01-25 16:15 | XMS_ITS | Encounter Summary ---
Author Organization [employer] Address [facility] [id number] [address] [place] [address] Care Team Providers Care Funeral Counselor Name Role Phone Rohith Archer DO Primary Care Provider [phone]- [phone] Encounter Details Date Type Department Care Team (Late st Contact Info) Description 08/04/2023 Telephone [facility] Internal Medicine - Family Medicine [address] [place] [address] Gildardo, Ellie, BARROW WORKER HELPER Social History Tobacco Use Types Packs/Day Years [...] often do you attend chur ch or latter-day services? Never 08/25/2022 Do you belong to any clubs o r organizations such as orthodoxy groups, unions, fraternal or athletic groups, or [...] Date Recorded Total Score 0 07/31/2023 [facility] of Occupat ionor Health - Occupational Stress Questionnaire Answer Date [...] Recorded Do you need help finding a [facility] and/or a training [...] EDT Called pt xrays were done at [facility] of the left shoulder * Telephone Encounter - Nam Salinas DO - 08/04/2023 10:17 AM EDT Message noted. Please contact [facility] to send over the reports of the x-rays * Telephone Encounter - Ellie Ewing CMA - 08/04/2023 10:17 AM EDT I called [facility] left vm to call back pt had also called to tell them to send them over * Telephone Encounter - Ellie Ewing CMA - 08/04/2023 10:17 AM EDT The results are in her media folder there were received today documented in this encounter Plan of Treatment Upcoming Encounters Date Type Department Care Team (Late st Contact Info) Description 02/03/2025 1:30 PM EDT Appointment [facility] [address] [place] [address] 02/03/2025 3:30 PM EDT Appointment [facility] [address] [place] [address] documented as of this encounter Visit Diagnoses Not on filedocumented in this encounter Additional Health Concerns Assessment Noted Time PHQ-9 Depression Total Score: 0 07/31/19 24 10:54 AM EST documented as of this encounter Care Teams Funeral Counselor Relationship Specialty Start Date End Date Rohith Archer DO [address] [facility], [place] [address] PCP - General Family Medicine 06/02/22 documented as of this encounter
--- OUTSIDE RECORDS SUMMARY | 2025-01-25 16:15 | XMS_ITS | Encounter Summary ---
Author Organization [facility] tem Address [id number] [address] [place] [address] Care Team Providers Care Lokie Engineer Name Role Phone Rohith Archer DO Primary Care Provider [phone]- [phone] Encounter Details Date Type Department Care Team (Late st Contact Info) Description 01/23/2025 Results Follow-Up [facility] Internal Medicine - Family Medicine [address] [place] [address] Rohith Archer DO [address], [place] [address] Magnesium, Lipid profile, Comprehensive metabolic panel Social History Tobacco Use Types Packs/Day Years Used Date Smoking Tobacco: Former Cigarettes 1 47 0 11/17/1973 - 11/28/2020 Smokeless Tobacco: Never Alcohol Use Standard Drinks/Week Comments Never 0 (1 standard drink = 0.6 oz pur e alcohol) [facility] Utilities Answer Date Recorded In the past 12 months has [employer], gas, oil, or water [employer] threatened to shut off services in your [...] week 08/25/2022 How often do you attend [facility] or moravian services? Never 08/25/2022 Do you belong to any clubs o r organizations such as orthodox groups, unions, fraternal or athletic groups, or [...] Answer Date Recorded Total Score 0 01/19/2025 [facility] of Occupat ional Health [...] 02/03/2025 1:30 PM EDT Appointment [facility] [address] [place] [address] 02/03/2025 3:30 PM EDT Appointment [facility] [address] [place] [address] documented as of this encounter Visit Diagnoses Not on filedocumented in this encounter Additional Health Concerns Assessment Noted Time PHQ-9 Depression Total Score: 0 01/20/20 25 3:18 PM EDT documented as of this encounter Care Teams Lokie Engineer Relationship Specialty Start Date End Date Rohith Archer DO [address], [place] [address] PCP - General Family Medicine 06/02/22 documented as of this encounter
--- OUTSIDE RECORDS SUMMARY | 2025-01-25 16:15 | XMS_ITS | Encounter Summary ---
Author Organization [employer] Address [facility] [id number] [address] [place] [address] Care Team Providers Care Radiology Director Name Role Phone GianniRohith Mario KAPOOR Primary Care Provider Encounter Details Date Type Department Care Team (Late st Contact Info) Description 07/28/2023 Orders Only [facility] Internal Medicine - Family Medicine [address] [place] [address] Anais Muñoz, PRODUCT MANAGEMENT CONSULTANT-DISC PAD KNOCKOUT WORKER [address] [place] [address] Social History Tobacco Use Types Packs/Day Years [...] often do you attend chur ch or alevism services? Never 08/25/2022 Do you belong to any clubs o r organizations such as confucianist groups, unions, fraternal or athletic groups, or [...] Answer Date Recorded Total Score 0 07/31/2023 [facility] of Occupat ional Health - Occupational [...] Recorded Do you need help finding a [facility] career center and/or a training [...] Info) Description 02/03/2025 1:30 PM EDT Appointment [facility] [address] [place] [address] 02/03/2025 3:30 PM EDT Appointment [facility] [address] [place] [address] documented as of this encounter Visit Diagnoses Not on filedocumented in this encounter Additional Health Concerns Assessment Noted Time PHQ-9 Depression Total Score: 0 06/15/19 24 3:31 PM EST documented as of this encounter Care Teams Radiology Director Relationship Specialty Start Date End Date Rohith Archer DO [address], [place] [address] PCP - General Family Medicine 06/02/22 documented as of this encounter
--- OUTSIDE RECORDS SUMMARY | 2025-01-25 16:15 | XMS_ITS | Encounter Summary ---
Author Organization [employer] Address [facility] [id number] [address] [place] [address] Care Team Providers Care Supervisor Porcelain Department Name Role Phone GianniRohith Mario KAPOOR Primary Care Provider [phone]- [phone] Encounter Details Date Type Department Care Team (Late st Contact Info) Description 07/06/2023 Telephone [facility] Internal Medicine - Family Medicine [address] [place] [address] Cami Phillip CMA Social History Tobacco Use [...] any clubs o r organizations such as mormon groups, unions, fraternal or athletic groups, or [...] Answer Date Recorded Total Score 0 06/15/2023 [facility] - Occupational Stress Questionnaire Answer Date [...] Do you need help finding a [facility] and/or a training program? [...] 1:30 PM EDT Appointment [facility] [address] [place] [address] 02/03/2025 3:30 PM EDT Appointment [facility] [address] [place] [address] documented as of this encounter Visit Diagnoses Not on filedocumented in this encounter Additional Health Concerns Assessment Noted Time PHQ-9 Depression Total Score: 0 06/15/19 24 3:31 PM EST documented as of this encounter Care Teams Supervisor Porcelain Department Relationship Specialty Start Date End Date Rohith Archer DO [address] [facility], [place] [address] PCP - General Family Medicine 06/02/22 documented as of this encounter
--- OUTSIDE RECORDS SUMMARY | 2025-01-25 16:15 | XMS_ITS | Encounter Summary ---
Author Organization [employer] tem Address [facility][id number] [address] [place] [address] Care Team Providers Care Director Of Psychology Name Role Phone JulioRohith gramajo Mario KAPOOR Primary Care Provider [phone] Encounter Details Date Type Department Care Team (Latest Contact Info) Description 01/19/2025 Travel Social History Tobacco Use Types Packs/Day Years Used Date Smoking Tobacco: Former Cigarettes 1 47 0 11/17/1973 - 11/28/2020 Smokeless Tobacco: Never Alcohol Use Standard Drinks/Week Comments Never 0 (1 standard drink = 0.6 oz pur e alcohol) [facility] Utilities Answer Date Recorded In the past 12 months has [employer] electric, gas, oil, or water company threatened [...] often do you attend chur ch or oriental orthodox services? Never 08/25/2022 Do you belong to any clubs o r organizations such as holiness groups, unions, fraternal or athletic groups, or [...] Answer Date Recorded Total Score 0 01/19/2025 [facility] - Occupational Stress Questionnaire Answer [...] Recorded Do you need help finding a [facility] and/or a training [...] Info) Description 02/03/2025 1:30 PM EDT Appointment [facility] [address] [place] [phone] 02/03/2025 3:30 PM EDT Appointment [place] [address] [place] [address] documented as of this encounter Visit Diagnoses Not on filedocumented in this encounter Additional Health Concerns Assessment Noted Time PHQ-9 Depression Total Score: 0 01/20/20 25 3:18 PM EDT documented as of this encounter Care Teams Director Of Psychology Relationship Specialty Start Date End Date Rohith Archer DO [address] [facility], [place] [address] PCP - General Family Medicine 06/02/22 documented as of this encounter
--- OUTSIDE RECORDS SUMMARY | 2025-01-25 16:15 | XMS_ITS | Encounter Summary ---
Author Organization [facility] tem Address [facility]-[id number] [address] [place] [address] Care Team Providers Care Injury Prevention Coordinator Name Role Phone Rohith Archer DO Primary Care Provider [phone] Reason for Visit * Reason Comments Med Refill Encounter Details Date Type Department Care Team (Late st Contact Info) Description 06/22/2022 Refill [facility] Internal Medicine - Family Medicine [address] [place] [address] Rohith Archer DO [address], [place] [address] Mixed hyperlipidemia Social History Tobacco Use Types [...] Info) Description 02/03/2025 1:30 PM EDT Appointment [facility] [address] [place] [address] 02/03/2025 3:30 PM EDT Appointment [facility] [address] [place] [address] documented as of this encounter Visit Diagnoses Diagnosis Mixed hyperlipidemia documented in this encounter Care Teams Injury Prevention Coordinator Relationship Specialty Start Date End Date Rohith Archer DO [address], [place] [address] PCP - General Family Medicine 06/02/22 documented as of this encounter
--- OUTSIDE RECORDS SUMMARY | 2025-01-25 16:15 | XMS_ITS | Encounter Summary ---
Author Organization [facility] [employer] [facility] tem Address [facility]-[id number] [address] [place] [address] Care Team Providers Care Data Entry Representative Name Role Phone Rohith Archer DO Primary Care Provider Encounter Details Date Type Department Care Team (Late st Contact Info) Description 08/05/2022 Orders Only [facility] Internal Medicine - Family Medicine [address] [place] [address] Rohith Archer DO [address], [place] [address] Social History Tobacco Use Types Packs/Day Years [...] Department Care Team (Late Contact Info) Description 02/03/2025 1:30 PM EDT Appointment [facility] [address] [place] [address] 02/03/2025 3:30 PM EDT Appointment [facility] [address] [place] [address] documented as of this encounter Procedures Procedure Name Priority Date/Time Associated Diagnosis Comments HM COLOGUARD Routine 04/05/2019 documented in this encounter Results * HM COLOGUARD (04/05/2019) us Rohith Archer DO HEALTH MAINTENANCE Final Res ult MANUALLY TRANSCRIBED RESULTS documented in this encounter Visit Diagnoses Not on filedocumented in this encounter Care Teams Data Entry Representative Relationship Specialty Start Date End Date Rohith Archer DO [address], [place] [address] PCP - General Family Medicine 06/02/22 documented as of this encounter
--- OUTSIDE RECORDS SUMMARY | 2025-01-25 16:15 | XMS_ITS | Encounter Summary ---
Author Organization [employer] [facility] tem Address [id number] [address] [place] [address] Care Team Providers Care Spa Consultant Name Role Phone Rohith Archer DO Primary Care Provider [phone] Encounter Details Date Type Department Care Team (Late st Contact Info) Description 08/01/2022 Telephone [facility] Internal Medicine - Family Medicine [address] [place] [address] Cami Phillip CMA Social History Tobacco Use [...] Info) Description 02/03/2025 1:[address] [facility] [address] [place] [address] 02/03/2025 3:30 PM EDT Appointment [facility] [address] [place] [address] documented as of this encounter Visit Diagnoses Not on filedocumented in this encounter Care Teams Spa Consultant Relationship Specialty Start Date End Date Rohith Archer DO [address], [place] [address] PCP - General Family Medicine 06/02/22 documented as of this encounter
--- OUTSIDE RECORDS SUMMARY | 2025-01-25 16:15 | XMS_ITS | Encounter Summary ---
Author Organization [employer] [facility] tem Address [facility][id number] [address] [place] [address] Care Team Providers Care Waterworks Pump Station Operator Name Role Phone Rohith Archer DO Primary Care Provider [phone] Encounter Details Date Type Department Care Team (Late st Contact Info) Description 08/19/2022 [facility]phone [facility] [address] [place] [address] Jocelyn Birch CMA Social History Tobacco Use [...] upset. Said she fasted and went to [facility] for her labs, and they had no order there. She was also late for work, due to the confusion. I allowed pt to know she can fast 4 hours prior to her appointment and she will get drawn when she is here. * Telephone Encounter - Rohith Archer DO - 08/19/2022 9:27 AM EDT The message was for [facility], pola documented in this encounter Plan of Treatment Upcoming Encounters Date Type Department Care Team (Late st Contact Info) Description 02/03/2025 1:30 PM EDT Appointment [facility] [address] [place] [address] 02/03/2025 3:30 PM EDT Appointment [facility] [address] [place] [address] documented as of this encounter Visit Diagnoses Not on filedocumented in this encounter Care Teams Waterworks Pump Station Operator Relationship Specialty Start Date End Date Rohith Archer DO [address] [facility], [place] [address] PCP - General Family Medicine 06/02/22 documented as of this encounter
--- OUTSIDE RECORDS SUMMARY | 2025-01-25 16:15 | XMS_ITS | Encounter Summary ---
Author Organization [email or web address] tem Address [facility][id number] [address] [place] [address] Care Team Providers Care City Councilman Name Role Phone GianniRohith Mario KAPOOR Primary Care Provider [phone] Encounter Details Date Type Department Care Team (Late st Contact Info) Description 07/28/2023 Telephone [facility] Internal Medicine - Family Medicine [address] [place] [address] Cami Phillip CMA Social History Tobacco Use [...] often do you attend chur ch or worship services? Never 08/25/2022 Do you belong to any clubs o r organizations such as rastafari groups, unions, fraternal or athletic groups, or [...] Answer Date Recorded Total Score 0 07/31/2023 [facility] - Occupational Stress Questionnaire Answer [...] Recorded Do you need help finding a [facility] career [facility] and/or a training [...] 02/03/2025 1:30 PM EDT Appointment [facility] [address] [place] [address] 02/03/2025 3:30 PM EDT Appointment [facility] [address] [place] [address] documented as of this encounter Visit Diagnoses Not on filedocumented in this encounter Additional Health Concerns Assessment Noted Time PHQ-9 Depression Total Score: 0 06/15/19 24 3:31 PM EST documented as of this encounter Care Teams City Councilman Relationship Specialty Start Date End Date Rohith Archer DO [address] [facility], [place] [address] PCP - General Family Medicine 06/02/22 documented as of this encounter
--- OUTSIDE RECORDS SUMMARY | 2025-01-25 16:15 | XMS_ITS | Encounter Summary ---
Author Organization [employer] tem Address [facility]-[id number] [address] [place] [address] Care Team Providers Care Liaison Engineer Name Role Phone JulioRohith gramajo Mario KAPOOR Primary Care Provider Encounter Details Date Type Department Care Team (Late st Contact Info) Description 10/08/2023 Orders Only [facility] Internal Medicine - Family Medicine [address] [place] [address] Cami Phillip CMA Encounter for screening mammogram for malignant neoplasm of breast; Ex-cigarette smoker Social History Tobacco Use Types Packs/Day Years Used Date Smoking Tobacco: Former Cigarettes 1 47 0 11/17/1973 - 11/28/2020 Smokeless Tobacco: Never Alcohol Use Standard Drinks/Week Comments Never 0 (1 standard drink = 0.6 oz pur e alcohol) [facility] Utilities Answer Date Recorded In the past 12 months has [employer], gas, oil, or water [employer] threatened to shut off services in your [...] often do you attend chur ch or spiritism services? Never 08/25/2022 Do you belong to any clubs o r organizations such as taoist groups, unions, fraternal or athletic groups, or [...] Answer Date Recorded Total Score 0 09/01/2023 [facility] of Occupat ional Health - Occupational [...] Do you need help finding a [facility] career center and/or a training [...] Info) Description 02/03/2025 1:30 PM EDT Appointment [facility] [address] [place] [address] 02/03/2025 3:30 PM EDT Appointment [facility] [address] [place] [address] documented as of this encounter Procedures Procedure [...] documented as of this encounter Care Teams Liaison Engineer Relationship Specialty Start Date End Date Rohith Archer DO [address] [facility] [place] [address] PCP - General Family Medicine 06/02/22 documented as of this encounter
--- OUTSIDE RECORDS SUMMARY | 2025-01-25 16:15 | XMS_ITS | Encounter Summary ---
Author Organization [facility] [facility] tem Address [facility]-[id number] [address] [place] [address] Care Team Providers Care Local Telephone Operator Name Role Phone Rohith Archer DO Primary Care Provider [phone] Encounter Details Date Type Department Care Team (Late st Contact Info) Description 08/07/2023 Telephone [facility] Internal Medicine - Family Medicine [address] [place] [address] Rohith Archer DO [address], [place] [address] Social History Tobacco Use Types Packs/Day Years [...] often do you attend chur ch or restorationist services? Never 08/25/2022 Do you belong to any clubs o r organizations such as episcopalian groups, unions, fraternal or athletic groups, or [...] Answer Date Recorded Total Score 0 07/31/2023 [facility] of Occupat ional Health - Occupational Stress [...] get and because [facility]. She said gather all my records and I will find another dr * Telephone Encounter - ZI Casey - 08/07/2023 11:50 AM EDT Called and spoke with her, note written documented in this encounter Plan of Treatment Upcoming Encounters Date Type Department Care Team (Late st Contact Info) Description 02/03/2025 1:30 PM EDT Appointment [facility] [address] [place] [address] 02/03/2025 3:30 PM EDT Appointment [facility] [address] [place] [address] documented as of this encounter Visit Diagnoses Not on filedocumented in this encounter Additional Health Concerns Assessment Noted Time PHQ-9 Depression Total Score: 0 07/31/19 10:54 AM EST documented as of this encounter Care Teams Local Telephone Operator Relationship Specialty Start Date End Date Rohith Archer DO [address], [facility] [place] [address] PCP - General Family Medicine 06/02/22 documented as of this encounter
--- OUTSIDE RECORDS SUMMARY | 2025-01-25 16:15 | XMS_ITS | Encounter Summary ---
Author Organization [facility] [employer] [facility] tem Address [id number] [address] [place] [address] Care Team Providers Care Histological Illustrator Name Role Phone Rohith Archer DO Primary Care Provider Encounter Details Date Type Department Care Team (Late Contact Info) Description 08/19/2022 Orders Only [facility] Internal Medicine - Family Medicine [address] [place] [address] Rohith Archer DO [address], [place] [address] Social History Tobacco Use Types Packs/Day Years [...] Info) Description 02/03/2025 1:30 PM EDT Appointment [facility] [address] [place] [address] 02/03/2025 3:30 PM EDT Appointment [facility] [address] [place] [address] documented as of this encounter Visit Diagnoses Not on filedocumented in this encounter Care Teams Histological Illustrator Relationship Specialty Start Date End Date Rohith Archer DO [address], [facility] [address] PCP - General Family Medicine 06/02/22 documented as of this encounter
--- OUTSIDE RECORDS SUMMARY | 2025-01-25 16:15 | XMS_ITS | Encounter Summary ---
Author Organization [employer] [facility] tem Address [facility]-[id number] [address] [place] [address] Care Team Providers Care Pole Frame Construction Worker Name Role Phone Rohith Archer DO Primary Care Provider [phone] Encounter Details Date Type Department Care Team (Late st Contact Info) Description 08/05/2023 Orders Only [facility] Internal Medicine - Family Medicine [address] [place] [address] Rohith Archer DO [address], [place] [address] Acute pain of left shoulder Social History [...] Answer Date Recorded Total Score 0 07/31/2023 [facility] of Occupat ional Health - Occupational Stress [...] Description 02/03/2025 1:30 PM EDT Appointment [facility] [address] [place] [address] 02/03/2025 3:30 PM EDT Appointment [facility] [address] [place] [address] documented as of this encounter Procedures Procedure [...] documented as of this encounter Care Teams Pole Frame Construction Worker Relationship Specialty Start Date End Date Rohith Archer DO [address], [place] [address] PCP - General Family Medicine 06/02/22 documented as of this encounter
--- OUTSIDE RECORDS SUMMARY | 2025-01-25 16:16 | XMS_ITS | Clinical Summary ---
Author Organization [facility] Address [address] [facility] [place] [address] Care Team Providers Care Brake Reliner Name Role Phone Unavailable Primary Care Provider [...]
--- OUTSIDE RECORDS SUMMARY | 2025-01-25 16:16 | XMS_ITS | Encounter Summary ---
Author Organization [employer] Address [id number] [address] [place] [address] Care Team Providers Care Brim Buster Name Role Phone JulioRohith gramajo Mario KAPOOR Primary Care Provider [phone] Encounter Details Date Type Department Care Team (Late st Contact Info) Description 09/30/2022 Orders Only [facility] Internal Medicine - Family Medicine [address] [place] [address] Cami Phillip CMA Ex-cigarette smoker Social History [...] often do you attend chur ch or evangelical services? Never 08/25/2022 Do you belong to any clubs o r organizations such as jew groups, unions, fraternal or athletic groups, or [...] Answer Date Recorded Total Score 0 08/25/2022 [facility] of Occupat ional Health - Occupational Stress [...] 02/03/2025 1:30 PM EDT Appointment [facility] [address] [place] [address] 02/03/2025 3:30 PM EDT Appointment [facility] [address] [place] [address] documented as of this encounter Procedures Procedure [...] documented as of this encounter Care Teams Brim Buster Relationship Specialty Start Date End Date Rohith Archer DO [address] [facility], [place] [address] PCP - General Family Medicine 06/02/22 documented as of this encounter
--- OUTSIDE RECORDS SUMMARY | 2025-01-25 16:16 | XMS_ITS | Encounter Summary ---
Author Organization [employer] tem Address [facility]-[id number] [address] [place] [address] Care Team Providers Care Adjuster Arbitrator Name Role Phone Gianni Rohith Mario KAPOOR Primary Care Provider Encounter Details Date Type Department Care Team (Late st Contact Info) Description 03/04/2024 Telephone [facility] Medicine - Family Medicine [address] [address] Gino Wang CMA Social History Tobacco Use Types Packs/Day Years Used Date Smoking Tobacco: Former Cigarettes 1 47 0 11/17/1973 - 11/28/2020 Smokeless Tobacco: Never Alcohol Use Standard Drinks/Week Comments Never 0 (1 standard drink = 0.6 oz pur e alcohol) [facility] Utilities Answer Date Recorded In the past 12 months has [employer] electric, gas, oil, or water company threatened [...] any clubs o r organizations such as worship groups, unions, fraternal or athletic groups, or [...] Answer Date Recorded Total Score 0 02/22/2024 [facility] of Occupat ional Health - Occupational [...] Appointment [facility] [address] [place] [address] 02/03/2025 3:30 PM EDT Appointment [facility] [address] [facility] [place] [address] documented as of this encounter Visit Diagnoses Not on filedocumented in this encounter Additional Health Concerns Assessment Noted Time PHQ-9 Depression Total Score: 0 02/22/20 24 11:04 AM EDT documented as of this encounter Care Teams Adjuster Arbitrator Relationship Specialty Start Date End Date Rohith Archer DO [address] [place] [address] PCP - General Family Medicine 06/02/22 documented as of this encounter
--- OUTSIDE RECORDS SUMMARY | 2025-01-25 16:16 | XMS_ITS | Encounter Summary ---
Author Organization [employer] tem Address [id number] [address] [place] [address] Care Team Providers Care Firer Electric Locomotive Name Role Phone GianniRohith Mario KAPOOR Primary Care Provider Encounter Details Date Type Department Care Team (Late st Contact Info) Description 03/07/2024 Telephone [facility] Medicine - Family Medicine [address] [place] [address] Peggy Azul CMA Social History Tobacco Use Types Packs/Day Years Used Date Smoking Tobacco: Former Cigarettes 1 47 0 11/17/1973 - 11/28/2020 Smokeless Tobacco: Never Alcohol Use Standard Drinks/Week Comments Never 0 (1 standard drink = 0.6 oz pur e alcohol) [facility] Utilities Answer Date Recorded In the past 12 months has [employer] electric, gas, oil, or water company threatened [...] often do you attend chur ch or gnosticist services? Never 08/25/2022 Do you belong to [...] Answer Date Recorded Total Score 0 02/22/2024 [facility] of Occupat ional Health - [...] Recorded Do you need help finding a [facility] career center and/or a training [...] to the following: CT chest without contrast [[id number]] on 03/04/2024 I called pt and read result note. She verbally states she understands.Recheck in a year documented in this encounter Plan of Treatment Upcoming Encounters Date Type Department Care Team (Late st Contact Info) Description 02/03/2025 1:30 PM EDT Appointment [facility] [address] [place] [address] 02/03/2025 3:30 PM EDT Appointment [facility] [address] [place] [address] documented as of this encounter Visit Diagnoses Not on filedocumented in this encounter Additional Health Concerns Assessment Noted Time PHQ-9 Depression Total Score: 0 02/22/20 24 11:04 AM EDT documented as of this encounter Care Teams Firer Electric Locomotive Relationship Specialty Start Date End Date Rohith Archer, DO [address] [facility], [place] [address] PCP - General Family Medicine 06/02/22 documented as of this encounter
--- OUTSIDE RECORDS SUMMARY | 2025-01-25 16:16 | XMS_ITS | Encounter Summary ---
Author Organization [employer] tem Address [facility]-[id number] [address] [place] [address] Care Team Providers Care Manager Managing Name Role Phone GianniRohith Mario KAPOOR Primary Care Provider Encounter Details Date Type Department Care Team (Late st Contact Info) Description 06/16/2023 Orders Only [facility] Internal [facility] - Family Medicine [address] [place] [address] Anais Muñoz, APPOINTMENT COORDINATOR-APPLICATION SECURITY ARCHITECT [address] [place] [address] Acute chest wall pain Social History Tobacco [...] often do you attend chur ch or nondenominational services? Never 08/25/2022 Do you belong to [...] Answer Date Recorded Total Score 0 06/15/2023 [facility] Occupat ional Health - Occupational [...] Info) Description 02/03/2025 1:30 PM EDT Appointment [facility] [address] [place] [phone] 02/03/2025 3:30 PM EDT Appointment [facility] [address] [place] [phone] documented as of this encounter Procedures Procedure Name Priority Date/Time Associated Diagnosis Comments XR RIBS LT 3 VWS W PA CHEST Routine 06/15/2023 Acute chest wall pain documented in this encounter Results * X-ray ribs left 3 views with pa chest (06/15/2023) Anatomical Region Laterality Modality MSK, Chest Left Computed Radiogr aphy Anais Muñoz APPOINTMENT COORDINATOR-APPLICATION SECURITY ARCHITECT IMG DIAGNOSTIC IMAGING ORDHannah ZAIDI Final Result documented in this encounter Visit Diagnoses Diagnosis Acute chest wall pain documented in this encounter Additional Health Concerns Assessment Noted Time PHQ-9 Depression Total Score: 0 06/15/19 24 3:31 PM EST documented as of this encounter Care Teams Manager Managing Relationship Specialty Start Date End Date Rohith Archer DO [address], [place] [address] PCP - General Family Medicine 06/02/22 documented as of this encounter
--- OUTSIDE RECORDS SUMMARY | 2025-01-25 16:16 | XMS_ITS | Clinical Summary ---
Author Organization [employer] tem Address [facility]-[id number] [address] [place] [address] Care Team Providers Care Vice President Digital Strategist Name Role Phone Gianni Rohith Mario KAPOOR Primary Care Provider Allergies No known active allergies Medications polycarbophil (FIBER, CALCIUM POLYCARBOPHIL, ) 625 mg tablet Take 1 tablet (625 mg total) by mouth. 12/17/19 23 Active fluticasone-um eclidin-vilant er (TRELEGY ELLIPTA) 100-62.5-25 mcg blister with device Inhale 1 puff in the morning. 1 each 01/20/20 25 Active vit C,B-Wv-ygote-l utein-zeaxan (PRESERVISION AREDS-2) 250-90-40-1 mg capsule Taking,but holding for surgery 025 Discontinu ed(Therapy completed) Immunization, In Clinic, Inject 0.5 mL into the appropriate muscle once for 1 dose. varicella-zoster (PF) 50 mcg/0.5mL Sign this order to satisfy the OSBOP Positive ID requirements for immunization orders. 01/20/20 25 025 Active Problems Problem Noted Date Diagnosed Date Chronic bilateral low back pain without sciatica 01/19/2025 Acute pain of left shoulder 01/19/2025 Mixed hyperlipidemia 06/15/2023 Ex-cigarette smoker 08/25/2022 Exudative age-related macular degeneration of ri ght eye 07/03/2020 COPD (chronic obstructive pulmonary disease) Resolved Problems Problem Noted Date Diagnosed Date Resolved Date Overweight 08/25/2022 02/22/2024 Encounters Date Type Department Care Team Description 01/23/2025 Results Follow-Up [facility] Internal Medicine - [facility] [address] [place] [address] Rohith Archer DO Magnesium, Lipid profile, Comprehensive metabolic panel 01/19/2025 3:15 PM EDT [facility] [address] [place] [address] Rohith Archer, Well adult exam (Primary Dx); Chronic obstructive pulmonary disease, unspecified COPD type (CMS-HCC); Pain in both lower extremities; Chronic bilateral low back pain without sciatica; Acute pain of left shoulder; Ex-cigarette smoker; Need for shingles vaccine 01/19/2025 Travel 12/26/2024 Results Follow-Up [facility] [address] [place] [address] Rohith Archer, HM MAMMOGRAPHY 12/26/2024 Orders Only [facility] [address] [place] [address] Ref Prov, Not In System from Last 3 Months Immunizations Immunization Administration Dates Next Due Influenza, Injectable, MDCK, Quadrivalent 2018 Tdap 03/22/2019 Zoster Vaccine Recombinant 01/19/2025 Family History Medical History Relation Name Comments Heart disease Brother Heart disease Father Iván Lung cancer Mother Sandra COPD Sister 1 Janey Heart attack Sister 2 Marnie Heart disease Sister 2 Marnie Lung cancer Sister 2 Marnie Relation Name Status Comments Brother Father Iván Alive Mother Sandra Sister 1 Janey Sister 2 Marnie Son 1 Alive Son 2 Alive Son 3 Alive Social History Tobacco Use Types Packs/Day Years Used Date Smoking Tobacco: Former Cigarettes 1 47 0 11/17/1973 - 11/28/2020 Smokeless Tobacco: Never Tobacco Cessation:Counseling Given: Not Answered Alcohol Use Standard Drinks/Week Comments Never 0 (1 standard drink = 0.6 oz pur e alcohol) [facility] Utilities Answer Date Recorded In [...] often do you attend chur ch or adventism services? Never 08/25/2022 Do you belong to any clubs o r organizations such as sabianist groups, unions, fraternal or athletic groups, or [...] Answer Date Recorded Total Score 0 01/19/2025 [facility] of Occupat ional Health - [...] Recorded Do you need help finding a [facility] career center and/or a training [...] Mass Index 24.1 01/19/2025 3:19 PM EDT Plan of Treatment Upcoming Encounters Date Type Department Care Team (Late st Contact Info) Description 02/03/2025 1:30 PM EDT Appointment [facility] [address] [place] [address] 02/03/2025 3:30 PM EDT Appointment [facility] [address] [place] [address] Health Maintenance Due Date Last Done Comments Pap Smear 1981 COVID-19 Vaccine (4 - 2024-2 6 season) 2025 04/23/2021, 10/18/2020, 09/20/2020 Influenza Vaccine 01/23/2025 03/22/2019 Zoster (Shingles) Vaccine (2 of 2) 03/16/20252024 Mammogram 12/15/2025 12/15/2024, 10/06/2023 Adult BMI Screening 01/19/2026 01/19/2025 Depression Screening 01/19/2026 01/19/2025 Tobacco Screening 01/19/2026 01/19/2025 DTaP,Tdap and Td Vaccines (2 - Td or Tdap) 03/22/2029 03/22/2019 Colonoscopy 01/14/2033 01/14/2023 Medical Devices Not on file Procedures Procedure Name Priority Date/Time Associated Diagnosis Comments COMPREHENSIVE METABOLIC PANEL Routine 01/19/2025 4:26 PM EDT Well adult exam LIPID PROFILE Routine 01/19/2025 4:26 PM EDT Well adult exam MAGNESIUM Routine 01/19/2025 4:26 PM EDT Well adult exam HM MAMMOGRAPHY Routine 12/15/2024 10:51 AM EDT HM COLONOSCOPY Routine 01/14/2023 11:28 AM EDT from Last 3 Months or Most Recently Relevant to Health Maintenance Results * Magnesium (01/19/2025 4:26 PM EDT) MAGNESIUM 2.1 1.8 - 2.6 mg/dL 01/19/2025 10:31 PM EDT [facility] Blood Venous blood / Unknown 01/19/2025 4:26 PM EDT 01/19/2025 4:27 PM EDT Rohith Martin Gianni DO LAB BLOOD ORDERABLES Final R esult [facility] [address] [place] [address], [place] [phone] * (ABNORMAL) Lipid profile (01/19/2025 4:26 PM EDT) CHOLESTEROL 242(H) 150 - 200 mg/dL 01/19/2025 10:31 PM EDT [facility] TRIGLYCERIDE 138 27 - 150 mg/dL 01/19/2025 10:31 PM EDT [facility] HDL CHOLESTEROL 37(L) >39 mg/dL 10:31 PM EDT [facility] Comment: HDL <40 mg/dL - High Risk HDL > or = 40mg/dL- Desirable HDL >60 mg/dL - Negative Risk LDL (CALC) 177(H) <130 mg/dL 01/19/2025 10:31 PM EDT [facility] Comment: LDL <100 mg/dL - Desirable LDL >160 mg/dL - High Risk CHOLESTEROL:HDL 6.5(H) 1.0 - 5.0 10:31 PM EDT [facility] VERY LOW LIPOPROTEIN 28 0 - 30 mg/dL 01/19/2025 10:31 PM EDT [facility] Blood Venous blood / Unknown 01/19/2025 4:26 PM EDT 01/19/2025 4:27 PM EDT Rohith Mario Gianni DO LAB BLOOD ORDERABLES Final R esult [facility] [address] [place] [address], [place] [phone] * Comprehensive metabolic panel (01/19/2025 4:26 PM EDT) SODIUM 141 134 - 146 mmol/L 01/19/2025 10:31 PM [facility] POTASSIUM 3.9 3.5 - 5.0 mmol/L 01/19/2025 10:31 PM [facility] CHLORIDE 102 98 - 109 mmol/L 01/19/2025 10:31 PM [facility] CARBON DIOXIDE 28 22 - 32 mmol/L 01/19/2025 10:31 PM [facility] ANION GAP 11 5 - 15 mmol/L 01/19/2025 10:31 PM [facility] BLOOD UREA NITROGEN 15 5 - 27 mg/dL 01/19/2025 10:31 PM [facility] CREATININE 0.68 0.40 - 1.00 mg/dL 01/19/2025 10:31 PM [facility] Comment:METHOD TRACEABLE TO IDWI STANDARD GLUCOSE 99 65 - 99 mg/dL 01/19/2025 10:31 PM [facility] CALCIUM 9.6 8.5 - 10.5 mg/dL 01/19/2025 10:31 PM [facility] TOTAL PROTEIN 7.2 6.0 - 8.0 g/dL 01/19/2025 10:31 PM [facility] ALBUMIN 4.5 3.2 - 5.3 g/dL 01/19/2025 10:31 PM [facility] ALKALINE PHOSPHATASE 88 39 - 130 U/L 01/19/2025 10:31 PM [facility] AST 20 <=41 U/L 01/19/2025 10:31 PM [facility] ALT 15 <=31 U/L 01/19/2025 10:31 PM [facility] BILIRUBIN,TOTAL 0.5 0.3 - 1.2 mg/dL 01/19/2025 10:31 PM [facility] EGFR Non-Race Dependent >90 >=60 ml/min/1.7 3sq.m 01/19/2025 10:31 PM [facility] Comment: Reported eGFR is based on the CKD-EPI 2020 equation that does not use a race coefficient. Blood Venous blood / Unknown 01/19/2025 4:26 PM EDT 01/19/2025 4:27 PM EDT us Rohith Archer DO LAB BLOOD ORDERABLES Final R esult [facility] [address] [place] [address], * HM MAMMOGRAPHY (12/15/2024 10:51 AM EDT) Anatomical Region Laterality Modality Other us Not In System Ref Prov HEALTH MAINTENANCE Final Result * HM COLONOSCOPY (01/14/2023 11:28 AM EDT) us Scanning Provider External HEALTH MAINTENANCE Fi nal Result Performing Organization Address City/[facility]/ZIP Co de Phone Number MANUALLY TRANSCRIBED RESULTS from Last 3 Months or Most Recently Relevant to Health Maintenance Insurance [employer] Care Teams Vice President Digital Strategist Relationship Specialty Start Date End Date Rohith Archer DO [address] [facility] [address], [place] [address] PCP - General Family Medicine 06/02/22
--- OUTSIDE RECORDS SUMMARY | 2025-01-25 16:16 | XMS_ITS | Encounter Summary ---
Author Organization [employer] [facility] tem Address [facility]-[id number] [address] [place] [address] Care Team Providers Care Salon Shampoo Assistant Name Role Phone Rohith Archer DO Primary Care Provider [phone]- [phone] Encounter Details Date Type Department Care Team (Late st Contact Info) Description 12/26/2024 Results Follow-Up [facility] Internal Medicine - Family Medicine [address] [place] [address] Rohith Archer DO [address], [place] [address] HM MAMMOGRAPHY Social History Tobacco Use Types Packs/Day Years Used Date Smoking Tobacco: Former Cigarettes 1 47 0 11/17/1973 - 11/28/2020 Smokeless Tobacco: Never Alcohol Use Standard Drinks/Week Comments Never 0 (1 standard drink = 0.6 oz pur e alcohol) [facility] Utilities Answer Date Recorded In the past 12 months has [facility], gas, oil, or water [employer] threatened to shut off services in your [...] week 08/25/2022 How often do you attend [facility] or judaism services? Never 08/25/2022 Do you belong to any clubs o r organizations such as oriental orthodox groups, unions, fraternal or athletic groups, [...] Answer Date Recorded Total Score 0 02/22/2024 [facility] of Occupat ional Health - Occupational [...] Recorded Do you need help finding a [facility] career center and/or a training program? No [...] Info) Description 02/03/2025 1:30 PM EDT Appointment [facility] [address] [place] [address] 02/03/2025 3:30 PM EDT Appointment [facility] [address] [place] [address] documented as of this encounter Visit Diagnoses Not on filedocumented in this encounter Additional Health Concerns Assessment Noted Time PHQ-9 Depression Total Score: 0 02/22/20 24 11:04 AM EDT documented as of this encounter Care Teams Salon Shampoo Assistant Relationship Specialty Start Date End Date Rohith Archer DO [address], [place] [address] PCP - General Family Medicine 06/02/22 documented as of this encounter
--- OUTSIDE RECORDS SUMMARY | 2025-01-25 16:16 | XMS_ITS | Encounter Summary ---
Author Organization [employer] [facility] tem Address [facility]-[id number] [address] [place] [address] Care Team Providers Care Back Seam Stitcher Name Role Phone Rohith Archer DO Primary Care Provider [phone]- [phone] Encounter Details Date Type Department Care Team (Late st Contact Info) Description 02/25/2024 Orders Only [facility] Internal Medicine - Family Medicine [address] [place] [address] Rohith Archer DO [address], [place] [address] Social History Tobacco Use Types Packs/Day Years Used Date Smoking Tobacco: Former Cigarettes 1 47 0 11/17/1973 - 11/28/2020 Smokeless Tobacco: Never Alcohol Use Standard Drinks/Week Comments Never 0 (1 standard drink = 0.6 oz pur e alcohol) [facility] Utilities Answer Date Recorded In the past 12 months has [employer], gas, oil, or water [employer] threatened to shut off services in your [...] week 08/25/2022 How often do you attend [facility] or scientologist services? Never 08/25/2022 Do you belong to any clubs o r organizations such as gnosticist groups, unions, fraternal or athletic groups, or [...] Answer Date Recorded Total Score 0 02/22/2024 [facility] of Occupat ional Health - Occupational [...] 02/03/2025 1:30 PM EDT Appointment [facility] [address] [place] [address] 02/03/2025 3:30 PM EDT Appointment [facility] [address] [place] [address] documented as of this encounter Visit Diagnoses Not on filedocumented in this encounter Additional Health Concerns Assessment Noted Time PHQ-9 Depression Total Score: 0 02/22/20 24 11:04 AM EDT documented as of this encounter Care Teams Back Seam Stitcher Relationship Specialty Start Date End Date Rohith Archer DO [address], [place] [address] PCP - General Family Medicine 06/02/22 documented as of this encounter
--- OUTSIDE RECORDS SUMMARY | 2025-01-25 16:16 | XMS_ITS | Encounter Summary ---
Author Organization [employer] tem Address [id number] [address] [place] [address] Care Team Providers Care Mail Clerks Supervisor Name Role Phone GianniRohith Mario KAPOOR Primary Care Provider [phone]- [phone] Encounter Details Date Type Department Care Team (Late st Contact Info) Description 06/19/2023 Telephone [facility] - Family Medicine [address] [place] [address] Cami Phillip CMA Social History Tobacco Use [...] any clubs o r organizations such as anabaptist groups, unions, fraternal or athletic groups, or [...] Answer Date Recorded Total Score 0 06/15/2023 [facility] - Occupational Stress Questionnaire Answer [...] Do you need help finding a [facility] career [facility] and/or a training program? [...] Info) Description 02/03/2025 1:30 PM EDT Appointment [facility] [address] [place] [address] 02/03/2025 3:30 PM EDT Appointment [place] [facility] [address] [place] [address] documented as of this encounter Visit Diagnoses Not on filedocumented in this encounter Additional Health Concerns Assessment Noted Time PHQ-9 Depression Total Score: 0 06/15/19 24 3:31 PM EST documented as of this encounter Care Teams Mail Clerks Supervisor Relationship Specialty Start Date End Date Rohith Archer DO [address] [facility], [place] [address] PCP - General Family Medicine 06/02/22 documented as of this encounter
--- OUTSIDE RECORDS SUMMARY | 2025-01-25 16:16 | XMS_ITS | Encounter Summary ---
Author Organization [employer] tem Address [facility]-[id number] [address] [place] [address] Care Team Providers Care Assistant Plant Manager Name Role Phone GianniRohith Mario KAPOOR Primary Care Provider [phone]- [phone] Encounter Details Date Type Department Care Team (Late st Contact Info) Description 06/16/2023 Telephone [facility] - Family Medicine [address] [place] [address] Gino Wang CMA Social History Tobacco Use [...] any clubs o r organizations such as adventism groups, unions, fraternal [...] Answer Date Recorded Total Score 0 06/15/2023 [facility] - Occupational Stress Questionnaire Answer Date [...] Recorded Do you need help finding a [facility] career center and/or a training program? [...] done 06/15. She had it done at [facility] * Telephone Encounter - Rohith Archer DO [...] do stress tests with Dr Salinas at [facility], is that ok? documented in this encounter Plan of Treatment Upcoming Encounters Date Type Department Care Team (Late st Contact Info) Description 02/03/2025 1:30 PM EDT Appointment [facility] [address] [place] [address] 02/03/2025 3:30 PM EDT Appointment [facility] [address] [place] [address] documented as of this encounter Visit Diagnoses Not on filedocumented in this encounter Additional Health Concerns Assessment Noted Time PHQ-9 Depression Total Score: 0 06/15/19 3:31 PM EST documented as of this encounter Care Teams Assistant Plant Manager Relationship Specialty Start Date End Date Rohith Archer DO [address] [facility], [place] [address] PCP - General Family Medicine 06/02/22 documented as of this encounter
--- OUTSIDE RECORDS SUMMARY | 2025-01-25 16:16 | XMS_ITS | Encounter Summary ---
Author Organization [employer] tem Address [facility]-[id number] [address] [place] [address] Care Team Providers Care Tank Builder Supervisor Name Role Phone GianniRohith Mario KAPOOR Primary Care Provider Encounter Details Date Type Department Care Team (Late st Contact Info) Description 12/17/2022 Orders Only [facility] - Family Medicine [address] [place] [address] Cami Phillip CMA Colon cancer screening Social [...] often do you attend chur ch or yazidi services? Never 08/25/2022 Do you belong to any clubs o r organizations such as pentecostal groups, unions, fraternal or athletic groups, or [...] Answer Date Recorded Total Score 0 12/08/2022 [facility] of Occupat [...] Info) Description 02/03/2025 1:30 PM EDT Appointment [facility] [address] [place] [address] 02/03/2025 3:30 PM EDT Appointment [facility] [address] [place] [address] documented as of this encounter Procedures Procedure [...] documented as of this encounter Care Teams Tank Builder Supervisor Relationship Specialty Start Date End Date Rohith Archer DO [address], [place] [address] PCP - General Family Medicine 06/02/22 documented as of this encounter
--- OUTSIDE RECORDS SUMMARY | 2025-01-25 16:16 | XMS_ITS | Encounter Summary ---
Author Organization [employer] tem Address [facility]-[id number] [address] [place] [address] Care Team Providers Care Grid Inspector Name Role Phone GianniRohith Mario KAPOOR Primary Care Provider Encounter Details Date Type Department Care Team (Late st Contact Info) Description 12/22/2022 Telephone [facility] - Family Medicine [address] [place] [address] Ruba Ortiz, MILLED LUMBER GRADER-DIRECTOR COMPENSATION [address] [place] [address] Social History Tobacco Use Types Packs/Day Years [...] Answer Date Recorded Total Score 0 12/08/2022 [facility] of Occupat ional Health - [...] Recorded Do you need help finding a [facility] career center and/or a training program? [...] [facility] [address] [place] [address] 02/03/2025 3:30 PM EDT Appointment [facility] [address] [place] [address] documented as of this encounter Visit Diagnoses Not on filedocumented in this encounter Additional Health Concerns Assessment Noted Time PHQ-9 Depression Total Score: 0 12/09/19 7:00 AM EDT documented as of this encounter Care Teams Grid Inspector Relationship Specialty Start Date End Date Rohith Archer DO [address], [place] [address] PCP - General Family Medicine 06/02/22 documented as of this encounter
--- OUTSIDE RECORDS SUMMARY | 2025-01-25 16:16 | XMS_ITS | Encounter Summary ---
Author Organization [employer] [facility] tem Address [facility]-[id number] [address] [place] [address] Care Team Providers Care Conference Coordinator Name Role Phone Rohith Archer DO Primary Care Provider [phone]- [phone] Encounter Details Date Type Department Care Team (Late st Contact Info) Description 01/22/2023 Orders Only [facility] - Family Medicine [address] [place] [address] Rohith Archer DO [address], [place] [address] Social History Tobacco Use Types Packs/Day Years [...] Answer Date Recorded Total Score 0 12/08/2022 [facility] of Occupat ional Health - [...] Recorded Do you need help finding a [facility] career center and/or a [...] Info) Description 02/03/2025 1:30 PM EDT Appointment [facility] [address] [place] [address] 02/03/2025 3:30 PM EDT Appointment [facility] [address] [place] [address] documented as of this encounter Procedures Procedure [...] documented as of this encounter Care Teams Conference Coordinator Relationship Specialty Start Date End Date Rohith Archer DO [address], [place] [address] PCP - General Family Medicine 06/02/22 documented as of this encounter
--- OUTSIDE RECORDS SUMMARY | 2025-01-25 16:16 | XMS_ITS | Encounter Summary ---
Author Organization [employer] Address [facility] [id number] [address] [place] [address] Care Team Providers Care Trim Setter Name Role Phone GianniRohith Mario KAPOOR Primary Care Provider Encounter Details Date Type Department Care Team (Late st Contact Info) Description 03/04/2024 Orders Only [facility] - Family Medicine [address] [place] [address] Cami Phillip CMA Lung nodule, solitary Social History Tobacco Use Types Packs/Day Years Used Date Smoking Tobacco: Former Cigarettes 1 47 0 11/17/1973 - 11/28/2020 Smokeless Tobacco: Never Alcohol Use Standard Drinks/Week Comments Never 0 (1 standard drink = 0.6 oz pur e alcohol) [facility] Utilities Answer Date Recorded In the past 12 months has [employer] electric, gas, oil, or water company threatened [...] often do you attend chur ch or congregational services? Never 08/25/2022 Do you belong to [...] Answer Date Recorded Total Score 0 02/22/2024 [facility] of Occupat ional Health - Occupational Stress [...] Recorded Do you need help finding a [facility] career center and/or a training program? [...] Info) Description 02/03/2025 1:30 PM EDT Appointment [facility] [address] [place] [address] 02/03/2025 3:30 PM EDT Appointment [facility] [address] [place] [address] documented as of this encounter Procedures Procedure Name Priority Date/Time Associated Diagnosis Comments CT CHEST WO CONT Routine 03/07/2024 3:21 PM EDT CREATININE, SERUM Routine 03/03/2024 Lung nodule, solitary documented in this encounter Results * CT chest without contrast (03/07/2024 3:21 PM EDT) Anatomical Region Laterality Modality Body, Lung, Chest, Body Covera N/A C omputed Tomography Scanning Provider External IMG CT ORDERABLES Fin [...] documented as of this encounter Care Teams Trim Setter Relationship Specialty Start Date End Date Rohith Archer DO [address] [place] [address] PCP - General Family Medicine 06/02/22 documented as of this encounter
--- OUTSIDE RECORDS SUMMARY | 2025-01-25 16:16 | XMS_ITS | Encounter Summary ---
Author Organization [employer] Address [facility] [id number] [address] [place] [address] Care Team Providers Care Ios Software Engineer Name Role Phone Rohith Archer DO Primary Care Provider Encounter Details Date Type Department Care Team (Late st Contact Info) Description 02/29/2024 Telephone [facility] - Family Medicine [address] [place] [address] Gildardo, Ellie, TRIM MASTER OPERATOR Social History Tobacco Use Types Packs/Day Years Used Date Smoking Tobacco: Former Cigarettes 1 47 0 11/17/1973 - 11/28/2020 Smokeless Tobacco: Never Alcohol Use Standard Drinks/Week Comments Never 0 (1 standard drink = 0.6 oz pur e alcohol) [facility] Utilities Answer Date Recorded In the past 12 months has [employer] electric, gas, oil, or water company threatened [...] often do you attend chur ch or scientology services? Never 08/25/2022 Do you belong to [...] Recorded Total Score 0 02/22/2024 [facility] of Occupat ional Health - Occupational [...] Info) Description 02/03/2025 1:30 PM EDT Appointment [facility] [address] [place] [phone] 02/03/2025 3:30 PM EDT Appointment [facility] [address] [place] [address] documented as of this encounter Visit Diagnoses Not on filedocumented in this encounter Additional Health Concerns Assessment Noted Time PHQ-9 Depression Total Score: 0 02/22/20 24 11:04 AM EDT documented as of this encounter Care Teams Ios Software Engineer Relationship Specialty Start Date End Date Rohith Archer DO [address] [facility], [place] [address] PCP - General Family Medicine 06/02/22 documented as of this encounter
--- OUTSIDE RECORDS SUMMARY | 2025-01-25 16:16 | XMS_ITS | Encounter Summary ---
Author Organization [employer] Address [facility] [id number] [address] [place] [address] Care Team Providers Care Account Receivable Clerk Name Role Phone GianniRohith Mario KAPOOR Primary Care Provider [phone] Encounter Details Date Type Department Care Team (Late st Contact Info) Description 06/22/2023 Orders Only [facility] - Family Medicine [address] [place] [address] Anais Muñoz, PLANNER-FURNACE BUILDER [address] [place] [address] Social History Tobacco Use Types Packs/Day Years [...] Answer Date Recorded Total Score 0 06/15/2023 [facility] of Occupat ional Health - [...] Recorded Do you need help finding a [facility] career center and/or a training [...] Info) Description 02/03/2025 1:30 PM EDT Appointment [facility] [address] [place] [address] 02/03/2025 3:30 PM EDT Appointment [facility] [address] [place] [address] documented as of this encounter Visit Diagnoses Not on filedocumented in this encounter Additional Health Concerns Assessment Noted Time PHQ-9 Depression Total Score: 0 06/15/19 24 3:31 PM EST documented as of this encounter Care Teams Account Receivable Clerk Relationship Specialty Start Date End Date Rohith Archer DO [address] [place] [address] PCP - General Family Medicine 06/02/22 documented as of this encounter
--- NOTE | 2025-01-25 16:17 | XR_ITS ---
[place] [address] Patient Name: PETRONA GORDON MRN: [id number] date: 1960 Sex: F Assigned Patient Location: [facility] Current Patient Location: [facility] Accession/Order Number: [id number] Exam Date: 01/25/2025 16:20 Report Date: 01/25/2025 23:11 At the request of: RELL JEFFERSON Procedure: XR lumbar spine 2-3V 3 views Lumbar Spine HISTORY: Low back pain COMPARISON: None POSTSURGICAL CHANGES: None BONY ALIGNMENT: Mild scoliosis HYPERMOBILITY:No bending imaging. LISTHESIS:Mild degenerative listhesis FRACTURE: None DEGENERATIVE CHANGES: Extensive degeneration greatest in lower lumbar facets. 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 Mild scoliosis. Impression dictated by: Jovanny Pinedo M.D. 01/25/2025 11:11 PM Dictation Location: [place] [address] Electronically authenticated by: [id number] Y Date: 01/25/2025 23:11
--- NOTE | 2025-01-25 16:18 | XR_ITS ---
[place] [address] Patient Name: PETRONA GORDON MRN: [id number] date: 1960 Sex: F Assigned Patient Location: [facility] Current Patient Location: [facility] Accession/Order Number: [id number] Exam Date: 01/25/2025 16:20 Report Date: 01/25/2025 23:10 At the request of: RELL JEFFERSON Procedure: XR shoulder LT min 2V 4 views left shoulder plain film HISTORY: Chronic left shoulder pain COMPARISON: 07/31/2023 ACUTE FINDINGS: None DEGENERATIVE CHANGE: Mild acromioclavicular degeneration SOFT TISSUE FINDINGS: Unremarkable JOINT EFFUSION: None POSTOP CHANGES: None BONY MINERALIZATION: Adequate XR/XR shoulder LT min 2V IMPRESSION: Similar mild degenerative change Impression dictated by: Jovanny Pinedo M.D. 01/25/2025 11:10 PM Dictation Location: [place] [address] Electronically authenticated by: [id number] Y Date: 01/25/2025 23:10
--- OUTSIDE RECORDS SUMMARY | 2025-01-25 19:29 | XMS_ITS | CCD ---
Author Organization [facility] Inform ion [facility] Care Team Providers Care Supervisor Coil Winding Name Role Phone Janice Rahman Unavailable DO Rohith Archer Primary Care Provider JETHRO Rahman Attending Provider Janice Rahman Attending Unavailable Janice Rahman Admitting Unavailable Rohith Archer Primary Care Unavailable FURLONG, DR ROHITH Martin Admitting Unavailable FURLONG, DR ROHITH Martin Attending Unavailable FURLONG, DR ROHITH Martin Consulting Unavailable FURLONG, DR ROHITH Martin Primary Care Unavailable [place], DR LOLIS Haider Consulting Unavailable FURLONG, DR ROHITH Martin Primary Care Unavailable FURLONG, DR ROHITH Martin Admitting Unavailable FURLONG, DR ROHITH Martin Attending Unavailable FURLONG, DR ROHITH Martin Consulting Unavailable ZIEBER, DR GABRIEL Toro Consulting Unavailable ROHITH ARCHER Referring Unavailable NILLRohit Attending Unavailable TANGLRohit Attending Unavailable SARAY GEORGE Attending Unavailable ANAIS MUÑOZ Referring Unavailable FURLONGROHITH Primary Care Unavailable SARAY GEORGE Attending Unavailable ANAIS MUÑOZ Referring Unavailable FURLONGROHITH Primary Care Unavailable JAYALONGROHITH Referring Unavailable FURLONGROHITH Primary Care Unavailable Eveline Ozuna MD, I Attending Unavailable Jayalong Rohith [place] Primary Care Rohith Lal DO Primary Care Tramaine Ozuna MD, Eveline I Attending Unavailable [place] Rohith [place] Primary Care Tramaine Ozuna MD, Eveline I Attending Unavailable [place] Rohith [place] [facility] Tramaine Ozuna MD, Eveline I Admitting Unavailable Sulma RODRÍGUEZ, J I Attending [facility] Rohith Leandro [facility] Tramaine Ozuna MD, J I Attending [facility] Tramaine Ozuna MD, J I Attending Unavailable Sulma RODRÍGUEZ, J I Attending [facility] Tramaine Ozuna MD, J I Attending [facility] Tramaine Ozuna MD, J I Attending [facility] Tramaine nava [facility] Tramaine Ozuna MD, J I Attending [facility] DO Rohith Mario [facility] Rohith [place] Primary Care Provider ROHITH ARCHER Attending [facility] ROHITH ARCHER Referring [facility] JAYAKATHLEENROHITH Attending [facility] Referring [facility] Mario [facility] Unavailable Allergies Allergy Classification Reported Allergen(s) Allergy Type Date of Onset Reaction(s) Facility (1 source) Unable to Assess Drug allergy (disorder) [facility] Repository (1 source) No Known Medication Allergies; Translations: [No Known Medication Allergies] Propensity to adverse reactions (disorder) [facility] Repository Medications Current Medications Medication Drug Class(es) Dates Sig (Normalized) Sig (Original) azithromycin 250 mg oral tablet (1 source) Macrolide Antimicrobial Start: 11-30-2021 Azithromycin 250 MG 2 tablet on the first day, then 1 tablet daily for 4 days Orally Once a day for 5 day(s) Nov, Active calcium polycarbophil 625 mg oral tablet (10 sources) Start: 12-16-2022 polycarbophil (FIBER, CALCIUM POLYCARBOPHIL,) 625 mg tablet Take 1 tablet (625 mg total) by mouth. 12/16/2022 Active cyclobenzaprine hydrochloride 5 mg oral tablet (1 source) Muscle Relaxant Start: 02-14-2019 take 1 tablet by mouth every eight hours Cyclobenzaprine HCl 5 MG 1 tablet as needed Orally Three times a day Jan, Active 30 actuat fluticasone furoate 0.1 mg/actuat / umeclidinium 0.0625 mg/actuat / vilanterol 0.025 mg/actuat dry powder inhaler (1 source) Anticholinergic, Corticosteroid, beta2-Adrenergic Agonist Start: 01-19-2025 take 1 puff(s) by inhalation in the morning fluticasone-umeclidi n-vilanter (TRELEGY ELLIPTA) 100-62.5-25 mcg blister with device Inhale 1 puff in the morning. 1 each 01/19/2025 Active predniSONE 20 mg oral tablet (2 sources) Start: 05-31-2022 take 1 tablet by mouth every twelve hours predniSONE 20 MG 1 tablet Orally 2 times a day for 5 day(s) May, Active Start: 11-30-2021 take 1 tablet by espinoza th every twelve hours predniSONE 20 MG 1 tablet Orally 2 times a day for 5 day(s) Nov, Active Completed/Discontinued Medications Medication Drug Class(es) Dates Sig (Normalized) Sig (Original) [id number] 200 actuat albuterol 0.09 mg/actuat metered dose [...] in the morning. 02/22/2024 Discontinued (Therapy completed) vit C,N-Bl-jkbha-lutein -zeaxan (PRESERVISION AREDS-2) 250-90-40-1 mg capsule (3 sources) End: 01-19-2025 vit C,F-Iw-joupj-lute in-zeaxan (PRESERVISION AREDS-2) 250-90-40-1 mg capsule Taking,but holding for surgery 01/19/2025 Discontinued (Therapy completed) vit C,E-Zn-coppr -lutein-zeaxan (PRESERVISION AREDS-2) 250-90-40-1 mg capsule Taking,but holding for surgery Active Problems Active Problems Problem Classification Problem Date Documented Da te Episodic/Chronic Anal and rectal conditions (3 sources) Rectal prolapse; Translations: [Rectal prolapse] Onset: 02-26-2024 Episodic Cardiac dysrhythmias (2 sources) Ventricular premature depolarization; Translations: [Ventricular premature complex] Onset: 07-17-2023 07-01-2023 Chronic Chronic obstructive pulmonary disease and bronchiectasis (6 sources) Chronic obstructive lung disease; Translations: [Chronic obstructive pulmonary disease, unspecified] Onset: 02-22-2024 02-22-2024 Chronic Disorders of lipid metabolism (11 sources) Mixed hyperlipidemia; Translations: [Mixed hyperlipidemia] Onset: 06-15-2023 05-30-2023 Chronic Immunizations and screening for infectious disease (5 sources) Encounter for screening for other viral diseases; Translations: [Contact with and (suspected) exposure to other viral communicable diseases] Onset: 04-17-2021 Resolved: 04-17-2021 Episodic Nonspecific chest pain (7 sources) Chest pain, unspecified; Translations: [Other chest pain] Onset: 05-31-2022 Episodic Other connective tissue disease (1 source) Pain in bilateral legs; Translations: [Pain in right leg] 01-19-2025 Episodic Other connective tissue disease (1 source) Pain in right leg; Translations: [Pain in right leg] Onset: 01-19-2025 Episodic Other connective tissue disease (1 source) Pain in left leg; Translations: [Pain in left leg] Onset: 01-19-2025 Episodic Other nervous system disorders (1 source) Other chronic pain; Translations: [Other chronic pain] Onset: 01-19-2025 Chronic Other non-traumatic joint disorders (4 sources) Pain in left shoulder; Translations: [Pain in joint, shoulder region] Onset: 01-19-2025 07-31-2023 Episodic Pleurisy; pneumothorax; pulmonary collapse (1 source) Pleurisy Episodic Retinal detachments; defects; vascular occlusion; and retinopathy (10 sources) 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; Translations: [Exudative age-related macular degeneration, right eye, stage unspecified] Onset: 07-03-2020 06-15-2023 Chronic Spondylosis; intervertebral disc disorders; other back problems (6 sources) Cervicalgia; Translations: [Chronic low back pain] Onset: 10-12-2021 Episodic Unclassified (1 source) Low back pain, unspecified; Translations: [Low back pain, unspecified] Onset: 01-19-2025 Unclassified (1 source) wellness Onset: 01-19-2025 Unclassified (1 source) Pre-op Exam Onset: 02-22-2024 Past or Other Problems Problem Classification Problem Date Documented Da te Episodic/Chronic Mood disorders (11 sources) Mood disorders Onset: 12-08-2022 Resolved: 01-19-2025 12-08-2022 Other bone disease and musculoskeletal deformities (1 [...] Translations: [Solitary pulmonary nodule] 02-24-2024 Episodic Other nutritional; endocrine; and metabolic disorders (11 sources) Overweight; Translations: [Overweight] Onset: 08-25-2022 Resolved: 02-22-2024 08-25-2022 Episodic Other screening for suspected conditions (not mental disorders or infectious disease) (1 source) Patient encounter status; Translations: [Encounter for screening mammogram for malignant neoplasm of breast] 09-01-2023 Episodic Screening and history of mental health and substance abuse codes (19 sources) Personal history of nicotine dependence; Translations: [Ex-cigarette smoker] Onset: 08-25-2022 Episodic Viral infection (1 source) COVID-19 Onset: 11-30-2021 Resolved: 11-30-2021 Results Test Name Value Interpretation Reference Range Facility COMPREHENSIVE METABOLIC PANE Ish 01-19-2025 Albumin [Mass/Vol] 4.5 g/dL Normal 3.2-5.3 [facility] Comment on above: Performed By: #### C MP #### [facility] ([facility]) [address] [place] [address] VIR ALP [Catalytic activity/Vol] 88 U/L Normal 39-130 [facility] Comment on above: Performed By: #### C MP #### [facility] ([facility]) [address] [place] [address] VIR ALT [Catalytic activity/Vol] 15 U/L Normal <=31 [facility] Comment on above: Performed By: #### C MP #### [facility] ([facility]) [address] [place] [address] VIR Anion gap [Moles/Vol] 11 mmol/L Normal 5-15 [facility] Comment on above: Performed By: #### C MP #### [facility] ([facility]) [address] [place] [address] VIR AST [Catalytic activity/Vol] 20 U/L Normal <=41 [facility] Comment on above: Performed By: #### C MP #### [facility] ([facility]) [address] [place] [address] VIR Bilirubin [Mass/Vol] 0.5 mg/dL Normal 0.3-1.2 [facility] Comment on above: Performed By: #### C MP #### [facility] ([facility]) [address] [place] [address] VIR Calcium [Mass/Vol] 9.6 mg/dL Normal 8.5-10.5 [facility] Comment on above: Performed By: #### C MP #### [facility] ([facility]) [address] [place] [address] VIR Chloride [Moles/Vol] 102 mmol/L Normal 98-109 [facility] Comment on above: Performed By: #### C MP #### [facility] ([facility]) [address] [place] [address] VIR CO2 [Moles/Vol] 28 mmol/L Normal 22-32 [facility] Comment on above: Performed By: #### C MP #### [facility] ([facility]) [address] [place] [address] VIR Creatinine [Mass/Vol] 0.68 mg/dL Normal 0.40-1.00 [facility] Comment on above: Result Comment: METH OD TRACEABLE TO IDMS STANDARD Performed By: #### C MP #### [facility] ([facility]) [address] [place] [address] VIR EGFR (CKD-EPI) NON-RACE DEPENDENT >^90 Normal >=60 [facility] Comment on above: Result Comment: Repo rted eGFR is based on the CKD-EPI 2020 equation that does not use a race coefficient. Performed By: #### C MP #### [facility] ([facility]) [address] [facility] [address] [place] [address] VIR Glucose [Mass/Vol] 99 mg/dL Normal 65-99 [facility] Comment on above: Performed By: #### C MP #### [facility] ([facility]) [address] [facility] [address] [place] [address] VIR Potassium [Moles/Vol] 3.9 mmol/L Normal 3.5-5.0 [facility] Comment on above: Performed By: #### C MP #### [facility] ([facility]) [address] [place] [address] VIR Protein [Mass/Vol] 7.2 g/dL Normal 6.0-8.0 [facility] Comment on above: Performed By: #### C MP #### [facility] ([facility]) [address] [facility] [address] [place] [address] VIR Sodium [Moles/Vol] 141 mmol/L Normal 134-146 [facility] Comment on above: Performed By: #### C MP #### [facility] ([facility]) [address] [place] [address] VIR Urea nitrogen [Mass/Vol] 15 mg/dL Normal 5-27 [facility] Comment on above: Performed By: #### C MP #### [facility] ([facility]) [address] [place] [address] VIR Comprehensive metabolic pane ish 01-19-2025 Albumin [Mass/Vol] 4.5 g/dL 3.2 - 5.3 g/dL [facility] ALP [Catalytic activity/Vol] 88 U/L 39 - 130 U/L [facility] ALT No additional P-5'-P [Catalytic activity/Vol] 15 U/L NINF - 31 U/L [facility] Anion gap [Moles/Vol] 11 mmol/L 5 - 15 mmol/L [facility] AST [Catalytic activity/Vol] 20 U/L NINF - 41 U/L [facility] Bilirubin [Mass/Vol] 0.5 mg/dL 0.3 - 1 .2 mg/dL [facility] Calcium [Mass/Vol] 9.6 mg/dL 8.5 - 10. 5 mg/dL [facility] Chloride [Moles/Vol] 102 mmol/L 98 - 10 9 mmol/L [facility] CO2 [Moles/Vol] 28 mmol/L 22 - 32 mmol/L [facility] Creatinine [Mass/Vol] 0.68 mg/dL 0.40 - 1.00 mg/dL [facility] Comment on above: METHOD TRACEABLE TO IDMS STANDARD EGFR Non-Race Dependent - PINF [facility] Comment on above: Reported eGFR is bas ed on the CKD-EPI 2020 equation that does not use a race coefficient. Glucose [Mass/Vol] 99 mg/dL 65 - 99 mg/dL [facility] Potassium [Moles/Vol] 3.9 mmol/L 3.5 - 5.0 mmol/L [facility] Protein [Mass/Vol] 7.2 g/dL 6.0 - 8.0 g/dL [facility] Sodium [Moles/Vol] 141 mmol/L 134 - 146 mmol/L [facility] Urea nitrogen [Mass/Vol] 15 mg/dL 5 - 27 mg/dL [facility] LIPID PROFILEon 01-19-2025 Cholesterol [Mass/Vol] 242 mg/dL High 150-200 [facility] Comment on above: Performed By: #### L IPR #### [facility] ([facility]) [address] [place] [address] VIR Cholesterol in HDL [Mass/Vol] 37 mg/dL Low >39 [facility] Comment on above: Result Comment: HDL <40 mg/dL - High Risk HDL > or = 40mg/dL- Desirable HDL >60 mg/dL - Negative Risk Performed By: #### L IPR #### [facility] ([facility]) [address] [place] [address] VIR Cholesterol in LDL [Mass/Vol] 177 mg/dL High <130 [facility] Comment on above: Result Comment: LDL <100 mg/dL - Desirable LDL >160 mg/dL - High Risk Performed By: #### L IPR #### [facility] ([facility]) [address] [place] [address] VIR CHOLESTEROL:HDL 6.5 High 1.0-5.0 [facility] Comment on above: Performed By: #### L IPR #### [facility] ([facility]) [address] [place] [address] VIR Triglyceride [Mass/Vol] 138 mg/dL Normal 27-150 [facility] Comment on above: Performed By: #### L IPR #### [facility] ([facility]) [address] [place] [address] VIR VERY LOW LIPOPROTEIN 28 mg/dL Normal 0-30 [facility] Comment on above: Performed By: #### L IPR #### [facility] ([facility]) [address] [place] [address] VIR Lipid profileon 01-19-2025 Cholesterol [Mass/Vol] 242 mg/dL High 150 - 200 mg/dL [facility] Cholesterol in HDL [Mass/Vol] 37 mg/dL Low 39 - PINF mg/dL [facility] Comment on above: HDL <40 mg/dL - High Risk HDL > or = 40mg/dL- Desirable HDL >60 mg/dL - Negative Risk Cholesterol in HDL [Mass/Vol] 6.5 mg/dL High 1.0 - 5.0 [facility] Cholesterol in LDL [Mass/Vol] 177 mg/dL High NINF - 130 mg/dL [facility] Comment on above: LDL <100 mg/dL - Korey irable LDL >160 mg/dL - High Risk Cholesterol in VLDL [Mass/Vol] 28 mg/dL 0 - 30 mg/dL [facility] Interpretation and review of laboratory results Abnormal [facility] Triglyceride [Mass/Vol] 138 mg/dL 27 - 150 mg/dL [facility] MAGNESIUMon 01-19-2025 Magnesium [Mass/Vol] 2.1 mg/dL Normal 1.8-2.6 [facility] Comment on above: Performed By: #### M G #### [facility] ([facility]) 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 Home/Environment Lives with [...] by Angélica Cortez 03/03/2024 14:05 EDT Normal [facility] .eGFRon 02-28-2024 GFR/1.73 sq M.predicted MDRD (S/P/Bld) [Vol rate/Area] mL/min/{1.73_m2} Normal >=60 [facility] Comment on above: Result Comment: [facility] have implemented the eGFR calculation [...] years Performed By: #### A SA #### [facility] (UNKNOWN) [address] [place] [address] CBC w/ Diffon 02-28-2024 Erythrocyte distribution width (RBC) [Ratio] 13.3 % Normal 11.6-14.8 [facility] Comment on above: Performed By: #### A SA #### [facility] ([facility]KNOWN) [address] [place] [address] Hematocrit (Bld) [Volume fraction] 36.8 % Normal 36.0-46.0 [facility] Comment on above: Performed By: #### A SA #### [facility] ([facility]KNOWN) [address] [place] [address] Hemoglobin (Bld) [Mass/Vol] 12.2 g/dL Normal 12.0-16.0 [facility] Comment on above: Performed By: #### A SA #### [facility] ([facility]KNOWN) [address] [place] [address] MCH (RBC) [Entitic mass] 30.8 pg Normal 27.0-35.0 [facility] Comment on above: Performed By: #### A SA #### [facility] ([facility]) [address] [place] [address] MCHC 33.0 % Normal 31.0-37.0 [facility] Comment on above: Performed By: #### A SA #### [facility] ([facility]) [address] [place] [address] MCV (RBC) [Entitic vol] 93.3 fL Normal 80.0-100.0 [facility] Comment on above: Performed By: #### A SA #### [facility] ([facility]) [address] [place] [address] Platelet 296 x10*3/mcL Normal 150-450 [facility] Comment on above: Performed By: #### A SA #### [facility] ([facility]) [address] [place] [address] Platelet mean volume (Bld) [Entitic vol] 7.8 fL Normal 6.7-10.6 [facility] Comment on above: Performed By: #### A SA #### [facility] ([facility]) [address] [place] [address] RBC 3.95 x10*6/mcL Normal 3.80-5.20 [facility] Comment on above: Performed By: #### A #### [facility] ([facility]) [address] [place] [address] WBC 8.4 x10*3/mcL Normal 4.5-11.0 [facility] Comment on above: Performed By: #### A #### [facility] ([facility]) [address] [place] [address] CMPon 02-28-2024 Albumin [Mass/Vol] 3.4 g/dL Normal 3.2-4.9 [facility] Comment on above: Performed By: #### A CHRISTINE #### [facility] ([facility]) [address] [place] [address] Albumin/Globulin [Mass ratio] 1.3 {ratio} Normal 1.1-2.2 [facility] Comment on above: Performed By: #### A CHRISTINE #### [facility] ([facility]) [address] [place] [address] Alk Phos 54 IU/L Normal 32-91 [facility] Comment on above: Performed By: #### A CHRISTINE #### [facility] ([facility]) [address] [place] [address] ALT [Catalytic activity/Vol] 24 U/L Normal 14-54 [facility] Comment on above: Performed By: #### A CHRISTINE #### [facility] ([facility]) [address] [place] [address] Anion gap [Moles/Vol] 10 mmol/L Normal 4-12 [facility] Comment on above: Performed By: #### A CHRISTINE #### [facility] ([facility]KNOWN) [address] [place] [address] AST [Catalytic activity/Vol] 25 U/L Normal 15-41 [facility] Comment on above: Performed By: #### A CHRISTINE #### [facility] ([facility]) [address] [place] [address] Bili Total 0.5 mg/dL Normal 0.3-1.2 [facility] Comment on above: Performed By: #### A CHRISTINE #### [facility] ([facility]) [address] [place] [address] Calcium [Mass/Vol] 8.8 mg/dL Normal 8.5-10.3 [facility] Comment on above: Performed By: #### A CHRISTINE #### [facility] ([facility]) [address] [place] [address] Chloride [Moles/Vol] 100 mmol/L Normal 98-110 [facility] Comment on above: Performed By: #### A CHRISTINE #### [facility] ([facility]) [address] [place] [address] CO2 [Moles/Vol] 29 mmol/L Normal 22-32 [facility] Comment on above: Performed By: #### A CHRISTINE #### [facility] ([facility]) [address] [place] [address] Creatinine [Mass/Vol] 0.85 mg/dL Normal 0.44-1.03 [facility] Comment on above: Performed By: #### A CHRISTINE #### [facility] ([facility]) [address] [place] [address] Glucose [Mass/Vol] 108 mg/dL High 70-99 [facility] Comment on above: Performed By: #### A CHRISTINE #### [facility] ([facility]) [address] [place] [address] Potassium [Moles/Vol] 4.3 mmol/L Normal 3.4-4.8 [facility] Comment on above: Performed By: #### A CHRISTINE #### [facility] ([facility]) [address] [place] [address] Protein [Mass/Vol] 6.0 g/dL Low 6.5-8.1 [facility] Comment on above: Performed By: #### A CHRISTINE #### [facility] ([facility]) [address] [place] [address] Sodium [Moles/Vol] 139 mmol/L Normal 133-142 [facility] Comment on above: Performed By: #### A CHRISTINE #### [facility] ([facility]) [address] [place] [address] Urea nitrogen [Mass/Vol] 11 mg/dL Normal 8-26 [facility] Comment on above: Performed By: #### A CHRISTINE #### [facility] ([facility]) [address] [place] [address] Urea nitrogen/Creatinine [Mass ratio] 12.9 mg/mg Normal 10.0-20.0 [facility] Comment on above: Performed By: #### A CHRISTINE #### [facility] ([facility]) [address] [place] [address] Diff Autoon 02-28-2024 Baso Absolute 0.1 x10*3/mcL Normal 0.0-0.2 [facility] Comment on above: Performed By: #### A CHRISTINE #### [facility] ([facility]) [address] [place] [address] Basophils/100 WBC (Bld) 0.8 % Normal 0.0-1.5 [facility] Comment on above: Performed By: #### A CHRISTINE #### [facility] ([facility]KNOWN) [address] [place] [address] Eos Absolute 0.1 x10*3/mcL Normal 0.0-0.4 [facility] Comment on above: Performed By: #### A CHRISTINE #### [facility] ([facility]KNOWN) [address] [place] [address] Eosinophils/100 WBC (Bld) 0.8 % Normal 0.0-5.4 [facility] Comment on above: Performed By: #### A CHRISTINE #### [facility] ([facility]KNOWN) [address] [place] [address] Lymph Absolute 2.2 x10*3/mcL Normal 1.0-4.8 [facility] Comment on above: Performed By: #### A CHRISTINE #### [facility] ([facility]KNOWN) [address] [place] [address] Lymphocytes/100 WBC (Bld) 26.1 % Low 27.2-40.8 [facility] Comment on above: Performed By: #### A CHRISTINE #### [facility] ([facility]) [address] [place] [address] Lamoure Absolute 0.8 x10*3/mcL Normal 0.1-1.1 [facility] Comment on above: Performed By: #### A CHRISTINE #### [facility]) [address] [place] [address] Monocytes/100 WBC (Bld) 9.5 % Normal 3.7-11.9 [facility] Comment on above: Performed By: #### A CHRISTINE #### [facility]) [address] [place] [address] Neutro Absolute 5.3 x10*3/mcL Normal 1.8-7.7 [facility] Comment on above: Performed By: #### A CHRISTINE #### [facility] [address] [place] [address] Neutro Auto 62.8 % Normal 47.2-70.8 [facility] Comment on above: Performed By: #### A CHRISTINE #### [facility]) [address] [place] [address] Inpatient Clinical Summaryon 02-28-2024 Inpatient Clinical Summary [address] [address] Clinical Summary Person Information Name: Petrona Gordon Age: 63 Years : 1960 Sex: Female PCP: Rohith Archer DO Marital Status: Single Phone: PCP: Race: White Ethnicity: Not or Language: Japanese Visit Id: Visit Reason: Speciality: Acuity: Enc Type: Inpatient Med Service: Surgery Arrival: 02/26/2024 08:53:02 Discharge: Dispo Type: Address: [address] [place] [address] [address] [place] [id number] Diagnosis: Post-op pain Discharged To: Home Treatments: [...] range between ( 27.2 and 40.8 ) Lamoure Auto: 9.5 % -- Normal range between [...] range between ( 36.0 and 46.0 ) [place] Absolute: 0.8 x10 MCH: 30.8 pg -- [...] No Immunizations (more content not included)... Normal [facility] Magnesiumon 02-28-2024 Magnesium [Mass/Vol] 1.8 mg/dL Normal 1.7-2.4 [facility] Comment on above: Performed By: #### A SA #### [facility] [address] [place] [address] Phosphoruson 02-28-2024 Phosphate [Mass/Vol] 2.7 mg/dL Normal 2.5-4.6 [facility] Comment on above: Performed By: #### A SA #### [facility]) [address] [place] [address] Surgical Progress Noteon Surgical Progress Note Patient tolerating diet did not like her arm at this morning no nausea no vomiting No gas or BM yet Pain is well-controlled Ambulating in the halls Status post sigmoidectomy and rectopexy Awaiting bowel function Discharge this afternoon versus tomorrow Electronically signed by Iván Sapp MD 02/28/24 10:33 EDT Normal [facility] .eGFRon 02-27-2024 GFR/1.73 sq M.predicted MDRD (S/P/Bld) [Vol rate/Area] mL/min/{1.73_m2} Normal >=60 [facility] Comment on above: Result Comment: [facility] have implemented the eGFR calculation [...] years Performed By: #### A SA #### [facility]) [address] [place] [address] CBC w/ Diffon 02-27-2024 Erythrocyte distribution width (RBC) [Ratio] 12.8 % Normal 11.6-14.8 [facility] Comment on above: Performed By: #### A SA #### [facility]) [address] [place] [address] Hematocrit (Bld) [Volume fraction] 36.9 % Normal 36.0-46.0 [facility] Comment on above: Performed By: #### A SA #### [facility] [address] [place] [address] Hemoglobin (Bld) [Mass/Vol] 12.6 g/dL Normal 12.0-16.0 [facility] Comment on above: Performed By: #### A SA #### [facility]) [address] [place] [address] MCH (RBC) [Entitic mass] 31.4 pg Normal 27.0-35.0 [facility] Comment on above: Performed By: #### A SA #### [facility]) [address] [place] [address] MCHC 34.1 % Normal 31.0-37.0 [facility] Comment on above: Performed By: #### A SA #### [facility]) [address] [place] [address] MCV (RBC) [Entitic vol] 92.0 fL Normal 80.0-100.0 [facility] Comment on above: Performed By: #### A SA #### [facility] [address] [place] [address] Platelet 329 x10*3/mcL Normal 150-450 [facility] Comment on above: Performed By: #### A #### [facility] [address] [place] [address] Platelet mean volume (Bld) [Entitic vol] 7.9 fL Normal 6.7-10.6 [facility] Comment on above: Performed By: #### A #### [facility]) [address] [place] [address] RBC 4.01 x10*6/mcL Normal 3.80-5.20 [facility] Comment on above: Performed By: #### A #### [facility] [address] [place] [address] WBC 11.7 x10*3/mcL High 4.5-11.0 [facility] Comment on above: Performed By: #### A SA #### [facility] [address] [place] [address] CMPon 02-27-2024 Albumin [Mass/Vol] 3.3 g/dL Normal 3.2-4.9 [facility] Comment on above: Performed By: #### A ACACIA #### [facility] [address] [place] [address] Albumin/Globulin [Mass ratio] 1.2 {ratio} Normal 1.1-2.2 [facility] Comment on above: Performed By: #### A CHRISTINE #### [facility] [address] [place] [address] Alk Phos 62 IU/L Normal 32-91 [facility] Comment on above: Performed By: #### A CHRISTINE #### [facility] [address] [place] [address] ALT [Catalytic activity/Vol] 15 U/L Normal 14-54 [facility] Comment on above: Performed By: #### A CHRISTINE #### [facility] [address] [place] [address] Anion gap [Moles/Vol] 8 mmol/L Normal 4-12 [facility] Comment on above: Performed By: #### A CHRISTINE #### [facility] [address] [place] [address] AST [Catalytic activity/Vol] 19 U/L Normal 15-41 [facility] Comment on above: Performed By: #### A CHRISTINE #### [facility] [address] [place] [address] Bili Total 0.9 mg/dL Normal 0.3-1.2 [facility] Comment on above: Performed By: #### A CHRISTINE #### [facility] [address] [place] [address] Calcium [Mass/Vol] 8.5 mg/dL Normal 8.5-10.3 [facility] Comment on above: Performed By: #### A CHRISTINE #### [facility] [address] [place] [address] Chloride [Moles/Vol] 101 mmol/L Normal 98-110 [facility] Comment on above: Performed By: #### A CHRISTINE #### [facility] [address] [place] [address] CO2 [Moles/Vol] 23 mmol/L Normal 22-32 [facility] Comment on above: Performed By: #### A CHRISTINE #### [facility] [address] [place] [address] Creatinine [Mass/Vol] 0.79 mg/dL Normal 0.44-1.03 [facility] Comment on above: Performed By: #### A CHRISTINE #### [facility] [address] [place] [address] Glucose [Mass/Vol] 119 mg/dL High 70-99 [facility] Comment on above: Performed By: #### A CHRISTINE #### [facility] [address] [place] [address] Potassium [Moles/Vol] 4.2 mmol/L Normal 3.4-4.8 [facility] Comment on above: Performed By: #### A CHRISTINE #### [facility] [address] [place] [address] Protein [Mass/Vol] 6.0 g/dL Low 6.5-8.1 [facility] Comment on above: Performed By: #### A CHRISTINE #### [facility] [address] [place] [address] Sodium [Moles/Vol] 132 mmol/L Low 133-142 [facility] Comment on above: Performed By: #### A CHRISTINE #### [facility] [address] [place] [address] Urea nitrogen [Mass/Vol] 16 mg/dL Normal 8-26 [facility] Comment on above: Performed By: #### A CHRISTINE #### [facility] [address] [place] [address] Urea nitrogen/Creatinine [Mass ratio] 20.3 mg/mg High 10.0-20.0 [facility] Comment on above: Performed By: #### A CHRISTINE #### [facility] [address] [place] [address] Diff Autoon 02-27-2024 Baso Absolute 0.0 x10*3/mcL Normal 0.0-0.2 [facility] Comment on above: Performed By: #### A SA #### [facility] [address] [place] [address] Basophils/100 WBC (Bld) 0.3 % Normal 0.0-1.5 [facility] Comment on above: Performed By: #### A SA #### [facility]) [address] [place] [address] Eos Absolute 0.0 x10*3/mcL Normal 0.0-0.4 [facility] Comment on above: Performed By: #### A SA #### [facility]) [address] [place] [address] Eosinophils/100 WBC (Bld) 0.0 % Normal 0.0-5.4 [facility] Comment on above: Performed By: #### A SA #### [facility]) [address] [place] [address] Lymph Absolute 0.9 x10*3/mcL Low 1.0-4.8 [facility] Comment on above: Performed By: #### A SA #### [facility]) [address] [place] [address] Lymphocytes/100 WBC (Bld) 7.4 % Low 27.2-40.8 [facility] Comment on above: Performed By: #### A SA #### [facility] ([facility]) [address] [place] [address] Lamoure Absolute 0.9 x10*3/mcL Normal 0.1-1.1 [facility] Comment on above: Performed By: #### A SA #### [facility] [address] [place] [address] Monocytes/100 WBC (Bld) 7.8 % Normal 3.7-11.9 [facility] Comment on above: Performed By: #### A SA #### [facility]) [address] [place] [address] Neutro Absolute 9.9 x10*3/mcL High 1.8-7.7 [facility] Comment on above: Performed By: #### A SA #### [facility]) [address] [place] [address] Neutro Auto 84.5 % High 47.2-70.8 [facility] Comment on above: Performed By: #### A SA #### [facility]) [address] [place] [address] Magnesiumon 02-27-2024 Magnesium [Mass/Vol] 1.6 mg/dL Low 1.7-2.4 [facility] Comment on above: Performed By: #### M G #### [facility] [address] [place] [address] Phosphoruson 02-27-2024 Phosphate [Mass/Vol] 3.8 mg/dL Normal 2.5-4.6 [facility] Comment on above: Performed By: #### A SA #### [facility] ([facility]) [address] [place] [address] Surgical Progress Noteon Surgical Progress Note Patient [...] Iván Sapp MD 02/27/24 10:53 EDT Normal [facility] Operative Reporton 4 Operative Report Indication for Surgery Rectal prolapse Preoperative Diagnosis Same Postoperative Diagnosis Sigmoid colectomy with rectopexy Operation Rectopexy Robotic X/Xi Resection Sigmoid Colon Robotic X/Xi Surgeon(s) Eveline Ozuna MD, I (Surgeon - Primary) Component Lab Tech Nae Caputo PA-C (Theatre Arts Professor) Anesthesia General Juan Miguel Negron DO (Car Wash Attendant) Estimated Blood Loss 15 mL Urine Output [...] in the right upper quadrant as an doctor's assistant port. The patient was then placed [...] EEA stapler was then inserted by the doctor's assistant into the proximal anterior aspect of the rectal stump just distal to staple line to allow for performing the anastomosis anteriorly wh (more content not included)... Normal [facility] .eGFRon 02-16-2024 GFR/1.73 sq M.predicted MDRD (S/P/Bld) [Vol rate/Area] mL/min/{1.73_m2} Normal >=60 [facility] Comment on above: Order Comment: Order added by Discern rule Result Comment: [facility] have implemented the eGFR calculation [...] Age = years Performed By: #### A [facility] #### [facility]) [address] [place] [address] GFR/1.73 sq M.predicted MDRD (S/P/Bld) [Vol rate/Area] mL/min/{1.73_m2} Normal >=60 [facility] Comment on above: Order Comment: Order added by Discern Rule. Result Comment: [facility] have implemented the eGFR calculation [...] years Performed By: #### A CHRISTINE #### [facility] ([facility]) [address] [place] [address] ABO/Rhon 02-16-2024 ABO/Rh ABO/Rh: B POS Normal [facility] Comment on above: Performed By: #### A CHRISTINE #### [facility] ([facility]) [address] [place] [address] ABSC Autoon 02-16-2024 ABSC Auto Negative Normal [facility] Comment on above: Performed By: #### A #### [facility]) [address] [place] [address] CBC w/ Diffon 02-16-2024 Erythrocyte distribution width (RBC) [Ratio] 13.0 % Normal 11.6-14.8 [facility] Comment on above: Performed By: #### A CHRISTINE #### [facility]) [address] [place] [address] Hematocrit (Bld) [Volume fraction] 41.7 % Normal 36.0-46.0 [facility] Comment on above: Performed By: #### A CHRISTINE #### [facility] ([facility]) [address] [place] [address] Hemoglobin (Bld) [Mass/Vol] 14.4 g/dL Normal 12.0-16.0 [facility] Comment on above: Performed By: #### A CHRISTINE #### [facility] ([facility]) [address] [place] [address] MCH (RBC) [Entitic mass] 31.8 pg Normal 27.0-35.0 [facility] Comment on above: Performed By: #### A CHRISTINE #### [facility] ([facility]) [address] [place] [address] MCHC 34.4 % Normal 31.0-37.0 [facility] Comment on above: Performed By: #### A CHRISTINE #### [facility] ([facility]) [address] [place] [address] MCV (RBC) [Entitic vol] 92.5 fL Normal 80.0-100.0 [facility] Comment on above: Performed By: #### A CHRISTINE #### [facility] ([facility]) [address] [place] [address] Platelet 378 x10*3/mcL Normal 150-450 [facility] Comment on above: Performed By: #### A CHRISTINE #### [facility] [address] [place] [address] Platelet mean volume (Bld) [Entitic vol] 6.9 fL Low 7.5-11.5 [facility] Comment on above: Performed By: #### A CHRISTINE #### [facility]) [address] [place] [address] RBC 4.51 x10*6/mcL Normal 3.80-5.20 [facility] Comment on above: Performed By: #### A CHRISTINE #### [facility]) [address] [place] [address] WBC 7.4 x10*3/mcL Normal 4.5-11.0 [facility] Comment on above: Performed By: #### A CHRISTINE #### [facility] ([facility]) [address] [place] [address] CMPon 02-16-2024 Albumin [Mass/Vol] 4.6 g/dL Normal 3.7-5.3 [facility] Comment on above: Performed By: #### A #### [facility]) [address] [place] [address] Albumin/Globulin [Mass ratio] 1.7 {ratio} Normal 1.1-2.2 [facility] Comment on above: Performed By: #### A SA #### [facility] ([facility]) [address] [place] [address] Alk Phos 80 IU/L Normal 34-104 [facility] Comment on above: Performed By: #### A SA #### [facility]) [address] [place] [address] ALT [Catalytic activity/Vol] 12 U/L Normal 7-52 [facility] Comment on above: Performed By: #### A SA #### [facility]) [address] [place] [address] Anion gap [Moles/Vol] 4 mmol/L Normal 4-12 [facility] Comment on above: Performed By: #### A SA #### [facility]) [address] [place] [address] AST [Catalytic activity/Vol] 17 U/L Normal 13-39 [facility] Comment on above: Performed By: #### A SA #### [facility]) [address] [place] [address] Bili Total 0.5 mg/dL Normal 0.3-1.0 [facility] Comment on above: Performed By: #### A SA #### [facility]) [address] [place] [address] Calcium [Mass/Vol] 9.9 mg/dL Normal 8.6-10.3 [facility] Comment on above: Performed By: #### A SA #### [facility]) [address] [place] [address] Chloride 103 IU/L Normal 98-107 [facility] Comment on above: Performed By: #### A SA #### [facility]) [address] [place] [address] CO2 [Moles/Vol] 31 mmol/L Normal 21-31 [facility] Comment on above: Performed By: #### A SA #### [facility]) [address] [place] [address] Creatinine [Mass/Vol] 0.59 mg/dL Low 0.60-1.20 [facility] Comment on above: Performed By: #### A SA #### [facility]) [address] [place] [address] Glucose [Mass/Vol] 90 mg/dL Normal 70-99 [facility] Comment on above: Performed By: #### A SA #### [facility]) [address] [place] [address] Potassium [Moles/Vol] 4.3 mmol/L Normal 3.4-4.8 [facility] Comment on above: Performed By: #### A SA #### [facility]) [address] [place] [address] Protein [Mass/Vol] 7.3 g/dL Normal 6.0-8.3 [facility] Comment on above: Performed By: #### A SA #### [facility]) [address] [place] [address] Sodium [Moles/Vol] 138 mmol/L Normal 136-145 [facility] Comment on above: Performed By: #### A SA #### [facility] [address] [place] [address] Urea nitrogen [Mass/Vol] 10 mg/dL Normal 7-25 [facility] Comment on above: Performed By: #### A SA #### [facility]) [address] [place] [address] Urea nitrogen/Creatinine [Mass ratio] 16.9 mg/mg Normal 10.0-20.0 [facility] Comment on above: Performed By: #### A SA #### [facility]) [address] [place] [address] CT Abdomen Pelvis w/ IV Cont raston 02-16-2024 CT Abdomen Pelvis w/ IV Contrast [...] extend through the anus. Radiation Dose Estimate: CTDI(mGy):0.375520 / / / kVp:100.249188 / mAs:0.323359 / / / DLP(mGy-cm):0.095871 Body Part: Abdomen CTDI(mGy):4.620784 / / / kVp:80.457370 / mAs:128.909605 / / / DLP(mGy-cm):192.0000 00Body Part: Abdomen Final Dictated by: Irma Estevez MD Dictated DT/TM: 02.16.2024 3:59 pm Signed by: Irma Estevez MD Signed (Electronic Signature): 02.16.2024 4:12 pm (If Report Is Signed, Electronically Signed in Other Vendor System) Normal [facility] Comment on above: Order Comment: tatiana khan order signed 02/04/24 - joe baxter in [employer] Diff Autoon 02-16-2024 Baso Absolute 0.1 x10*3/mcL Normal 0.0-0.2 [facility] Comment on above: Performed By: #### A SA #### [facility] ([facility]) [address] [place] [address] Basophils/100 WBC (Bld) 1.1 % Normal 0.0-1.5 [facility] Comment on above: Performed By: #### A SA #### [facility] ([facility]) [address] [place] [address] Eos Absolute 0.1 x10*3/mcL Normal 0.0-0.4 [facility] Comment on above: Performed By: #### A SA #### [facility] ([facility]) [address] [place] [address] Eosinophils/100 WBC (Bld) 1.4 % Normal 0.0-5.4 [facility] Comment on above: Performed By: #### A SA #### [facility] ([facility]) [address] [place] [address] Lymph Absolute 2.0 x10*3/mcL Normal 1.0-4.8 [facility] Comment on above: Performed By: #### A SA #### [facility] ([facility]) [address] [place] [address] Lymphocytes/100 WBC (Bld) 26.9 % Low 27.2-40.8 [facility] Comment on above: Performed By: #### A SA #### [facility] ([facility]) [address] [place] [address] Lam[place]re Absolute 0.5 x10*3/mcL Normal 0.1-1.1 [facility] Comment on above: Performed By: #### A SA #### [facility] ([facility]) [address] [place] [address] Monocytes/100 WBC (Bld) 6.9 % Normal 3.7-11.9 [facility] Comment on above: Performed By: #### A SA #### [facility] ([facility]) [address] [place] [address] Neutro Absolute 4.7 x10*3/mcL Normal 1.8-7.7 [facility] Comment on above: Performed By: #### A SA #### [facility] ([facility]) [address] [place] [address] Neutro Auto 63.7 % Normal 47.2-70.8 [facility] Comment on above: Performed By: #### A SA #### [facility] ([facility]) [address] [place] [address] POC Creatinine Von POC Crea iStat Venous 0.6 mg/dL Normal 0.6-1.3 [facility] Comment on above: Performed By: #### A CHRISTINE #### [facility] ([facility]) [address] [place] [address] Surgery Office/Clinic Noteon 02-04-2024 Surgery Office/Clinic Note Chief Complaint Rectal protrusion History of Present Illness 63 year old female, referred by Dr. Amanda ([facility]), patient of Colin Sarah Patient is here with c/o protrusion from the rectum that has been an ongoing issue for many years, but worsening lately. States it is becoming more difficult to reduce. She denies constipation or straining and bleeding. Last colonoscopy 01-14-2023 in [place], diverticulosis and tubular adenoma x2. The patient [...] (01/14/2023) Medicatio (more content not included)... Normal [facility] COMPREHENSIVE METABOLIC PANE Ish 09-01-2023 Albumin [Mass/Vol] 4.5 g/dL Normal 3.2-5.3 [facility] Comment on above: Performed By: #### C TAMRA, 80893-4 #### [facility] ([id number]) [address], [address] [place] [address] ALP [Catalytic activity/Vol] 73 U/L Normal 39-130 [facility] Comment on above: Performed By: #### Huseyin BARBOZA, 61424-0 #### [facility] ([id number]) [address], [address] [place] [address] ALT [Catalytic activity/Vol] 21 U/L Normal 0-31 [facility] Comment on above: Performed By: #### Huseyin BARBOZA, 47029-5 #### [facility] ([id number]) [address], [address] [place] [address] Anion gap [Moles/Vol] 8 mmol/L Normal 5-15 [facility] Comment on above: Performed By: #### Huseyin BARBOZA, 37188-3 #### [facility] ([id number]) [address], [address] [place] [address] AST [Catalytic activity/Vol] 24 U/L Normal 0-41 [facility] Comment on above: Performed By: #### Huseyin BARBOZA 83314-3 #### [facility] ([id number]) [address], [address] [place] [address] Bilirubin [Mass/Vol] 0.3 mg/dL Normal 0.3-1.2 [facility] Comment on above: Performed By: #### Huesyin BARBOZA, 79012-2 #### [facility] ([id number]) [address], [address] [place] [address] Calcium [Mass/Vol] 9.4 mg/dL Normal 8.5-10.5 [facility] Comment on above: Performed By: #### Huseyin BARBOZA, 82119-1 #### [facility] ([id number]) [address], [address] [place] [address] Chloride [Moles/Vol] 102 mmol/L Normal 98-109 [facility] Comment on above: Performed By: #### Huseyin BARBOZA, 78980-1 #### [facility] ([id number]) [address], [address] [place] [address] CO2 [Moles/Vol] 30 mmol/L Normal 22-32 [facility] Comment on above: Performed By: #### Huseyin BARBOZA, 76711-5 #### [facility] ([id number]) [address], [address] [place] [address] Creatinine [Mass/Vol] 0.58 mg/dL Normal 0.40-1.00 [facility] Comment on above: Result Comment: METH OD TRACEABLE TO IDMS STANDARD Performed By: #### Huseyin BARBOZA, 22199-7 #### [facility] ([id number]) [address], [address] [place] [address] eGFR (CKD-EPI) NON-RACE DEPENDENT >90 Normal >59 [facility] Comment on above: Result Comment: Reported eGFR is based on the CKD-EPI 2020 equation that does not use a race coefficient. Performed By: #### Huseyin BARBOZA, 27250-9 #### [facility] ([id number]) [address], [address] [place] [address] Glucose [Mass/Vol] 98 mg/dL Normal 65-99 [facility] Comment on above: Performed By: #### Huseyin BARBZOA, 48607-3 #### [facility] ([id number]) [address], [address] [place] [address] Potassium [Moles/Vol] 4.5 mmol/L Normal 3.5-5.0 [facility] Comment on above: Performed By: #### Huseyin BARBOZA, 77446-5 #### [facility] ([id number]) [address], [address] [place] [address] Protein [Mass/Vol] 6.9 g/dL Normal 6.0-8.0 [facility] Comment on above: Performed By: #### Huseyin BARBOZA, 55668-8 #### [facility] ([id number]) [address] [place] [address] Sodium [Moles/Vol] 140 mmol/L Normal 134-146 [facility] Comment on above: Performed By: #### Huseyin BARBOZA, 95510-9 #### [facility] ([id number]) [address], [address] [place] [address] Urea nitrogen [Mass/Vol] 12 mg/dL Normal 5-27 [facility] Comment on above: Performed By: #### Huseyin BARBOZA, 03362-0 #### [facility] ([id number]) [address], [address] [place] [address] Comprehensive metabolic pane ish 09-01-2023 Albumin [Mass/Vol] 4.5 g/dL 3.2 - 5.3 g/dL [facility] ALP [Catalytic activity/Vol] 73 U/L 39 - 130 U/L [facility] ALT No additional P-5'-P [Catalytic activity/Vol] 21 U/L 0 - 31 U/L [facility] Anion gap [Moles/Vol] 8 mmol/L 5 - 15 mmol/L [facility] AST [Catalytic activity/Vol] 24 U/L 0 - 41 U/L [facility] Bilirubin [Mass/Vol] 0.3 mg/dL 0.3 - 1 .2 mg/dL [facility] Calcium [Mass/Vol] 9.4 mg/dL 8.5 - 10. 5 mg/dL [facility] Chloride [Moles/Vol] 102 mmol/L 98 - 10 9 mmol/L [facility] CO2 [Moles/Vol] 30 mmol/L 22 - 32 mmol/L [facility] Creatinine [Mass/Vol] 0.58 mg/dL 0.40 - 1.00 mg/dL [facility] Comment on above: METHOD TRACEABLE TO [facility] STANDARD eGFR (CKD-EPI)non-race dependent - PINF [facility] Comment on above: Reported eGFR is based on the CKD-EPI 2020 equation that does not use a race coefficient. Glucose [Mass/Vol] 98 mg/dL 65 - 99 mg/dL [facility] Potassium [Moles/Vol] 4.5 mmol/L 3.5 - 5.0 mmol/L [facility] Protein [Mass/Vol] 6.9 g/dL 6.0 - 8.0 g/dL [facility] Sodium [Moles/Vol] 140 mmol/L 134 - 146 mmol/L [facility] Urea nitrogen [Mass/Vol] 12 mg/dL 5 - 27 mg/dL [facility] Lipid 1996 panelon 4 Cholesterol [Mass/Vol] 191 mg/dL 150 - 200 mg/dL [facility] Cholesterol in HDL [Mass/Vol] 54 mg/dL 39 - PINF mg/dL [facility] Comment on above: HDL <40 mg/dL - High Risk HDL > or = 40mg/dL- Desirable HDL >60 mg/dL - Negative Risk Cholesterol in LDL [Mass/Vol] 111 mg/dL NINF - 130 mg/dL [facility] Comment on above: LDL <100 mg/dL - Desirable LDL >160 mg/dL - High Risk Cholesterol in VLDL [Mass/Vol] 26 mg/dL 0 - 30 mg/dL [facility] Cholesterol.total/Cho lesterol in HDL [Mass ratio] 3.5 {ratio} 1.0 - 5.0 [facility] Triglyceride [Mass/Vol] 130 mg/dL 27 - 150 mg/dL [facility] Cholesterol [Mass/Vol] 191 mg/dL Normal 150-200 [facility] Comment on above: Performed By: ###[place], [address]-0 #### [facility] ([id number]) [address], [facility] [address] [place] [address] Cholesterol in HDL [Mass/Vol] 54 mg/dL Normal >39 [facility] Comment on above: Result Comment: HDL <40 mg/dL - High Risk HDL > or = 40mg/dL- Desirable HDL >60 mg/dL - Negative Risk Performed By: ###[place], [address]-6 #### [facility] ([id number]) [address], [address] [place] [address] Cholesterol in LDL [Mass/Vol] 111 mg/dL Normal <130 [facility] Comment on above: Result Comment: LDL <100 mg/dL - Desirable LDL >160 mg/dL - High Risk Performed By: #### Huseyin BARBOZA, 92260-5 #### [facility] ([id number]) [address], [address] [place] [address] Cholesterol in VLDL [Mass/Vol] 26 mg/dL Normal 0-30 [facility] Comment on above: Performed By: #### C TAMRA, 23996-9 #### [facility] ([id number]) [address], [address] [place] [address] CHOLESTEROL:HDL 3.5 Normal 1.0-5.0 [facility] Comment on above: Performed By: #### Huseyin BARBOZA, 41485-1 #### [facility] ([id number]) [address], [address] [place] [address] Triglyceride [Mass/Vol] 130 mg/dL Normal 27-150 [facility] Comment on above: Performed By: #### Huseyin BARBOZA, 45129-1 #### [facility] ([id number]) [address], [address] [place] [address] No Panel Informationon 08-31 [facility] DNS:Net System POCT EKGOrdered By: Cami Fine per on 06-15-2023 [facility] Outside Colonoscopyon 2022 Outside Colonoscopy [id number]#1.00CD:127 Normal [facility] Pathology Noteon 01-21-2023 Pathology Note [id number] #1.00CD:127 Normal [facility] Reminderson 01-21-2023 Reminders - From: Elisa Patel LPN To: GSN - Clinical; Sent: 01/21/2023 10:07:40 EDT Show up: 12/15/2027 07:00:00 EDT Subject: colonoscopy recall Due Date/Time: 01/15/2028 07:00:00 EDT Reminder/Recall Patient due for surveillance colonoscopy 01/15/2028. Normal [facility] Insurance Correspondenceon 0 12-26-2022 Insurance Correspondence [id number] 7#1.00CD:127 Normal [facility] Consent for Procedure/Surger yon 12-17-2022 Consent for Procedure/Surgery [id number] #1.00CD:127 [facility] Facesheeton 12-17-2022 Facesheet [id number] #1.00CD:127 [facility] Ambulatory Visit Summaryon 0 12-16-2022 Ambulatory Visit Summary PETRONA GORDON :1960 Visit Date:12/16/2022 Ambulatory Visit Instructions Your Diagnosis Screening for malignant neoplasm of colon Your Care Team Attending Physician - RAO ORDRÍGUEZ, Rohit Toro Primary Care Physician - ROHITH ACRHER DO Referring Physician - ROHITH ARCHER DO [...] Overweight Screening for malignant neoplasm of colon [facility] Physician Referralon 023 Physician Referral [id number] #1.00CD:127 [facility] [address] LUNG CANCER SCREENINGon 0 09-29-2022 CT [...] by: GABRIEL ROBERTSON Date: 2022-09-29 17:03 Normal [facility] COVID + FLU Quick Testingon 05-31-2022 SARS-CoV-2 (COVID-19) RNA MILAN+probe Ql (Unsp spec) Negative [facility] Other COVID + FLU Quick Testing Negative [facility] Other XR chest 2V*on 05-31-2022 XR chest 2V* [facility] Main [place] [address] [place] [address] XRay Report Signed Patient: Petrona Gordon MR#: [id number] : 1960 Acct:[id number] Age/Sex: 61 / F ADM Date: 05/31/22 Loc: XDUCLY Room: Type: [facility] Attending Dr: Janice MORELOS Copies to: JETHRO [...] Keyonna Head M.D.05/31/2022 1:14 PM Dictation Location: [facility]--02 Transcribed By: LAUREEN 05/31/22 1314 Dictated By: Keyonna Head MD 05/31/22 1313 Signed By: 05/31/22 1314 Normal [facility] XR chest 2V* [facility] Intern Other XR chest 2V* [facility] Main [facility] Intern Other XR chest 2V* [address] [place] [address] Intern Other XR chest 2V* [place] [address] [facility] [employer] Other XR chest 2V* XRay Report [facility] Other XR chest 2V* Signed [facility] Other XR chest 2V* Patient: Petrona Gordon MR#: [id number] [facility] Other XR chest 2V* [id number] [facility] Other XR chest 2V* : 1960 Acct:[id number] [facility] Other XR chest 2V* Age/Sex: 61 / F ADM Date: 05/31/22 [facility] Other XR chest 2V* Loc: XDUCLY Room: Type: [facility] Other XR chest 2V* Attending Dr: Janice Rahman [employer] [facility] Other XR chest 2V* Copies to: JETHRO Robles [facility] Other XR chest 2V* Ordering Provider: JETHRO Robles [facility] Other XR chest 2V* Date of Service: 05/31/22 [facility] Other XR chest 2V* XR/XR chest 2V*: COUGH [facility] Other XR chest 2V* PA AND LATERAL CHEST: [facility] Other XR chest 2V* CLINICAL HISTORY: Chest tightness on the right and productive cough [facility] Other XR chest 2V* COMPARISON: None [facility] Other XR chest 2V* The lungs are hyperinflated. There are minor chronic changes. There is no focal parenchymal [facility] Other XR chest 2V* consolidation, effusion or pneumothorax. The cardiac, hilar and mediastinal silhouettes are within [facility] Other XR chest 2V* normal limits. There is no vascular congestion. The visualized bony thorax is intact. Endplate [facility] Other XR chest 2V* spurring is present. No rt [employer] Other XR chest 2V* XR/XR chest 2V* [facility] Other XR chest 2V* IMPRESSION: [facility] Other XR chest 2V* OBSTRUCTIVE LUNG DISEASE. [facility] Other XR chest 2V* NO ACUTE CARDIOPULMONARY ABNORMALITY. [facility] Other XR chest 2V* Impression dictated by: Keyonna Head M.D.05/31/2022 1:14 PM [facility] Other XR chest 2V* Dictation Location: [place] [address] [facility] Other XR chest 2V* Transcribed By: LAUREEN 05/31/22 1314 [facility] Other XR chest 2V* Dictated By: Keyonna Head MD 05/31/22 1313 [facility] Other XR chest 2V* Signed By: [facility] Other XR chest 2V* 05/31/22 1314 [facility] Intern Other COVID Quick Testingon 2021 Result Positive [facility] Other XR CSPINE 2_3 VIEWSon 2021 XR [...] paraspinous abnormality is seen. OTHER: Negative. IMPRESSION: [id number] degenerative changes most significant at C5-C6 Electronically authenticated by: LOLIS CALLAWAY Date: 2021-10-14 07:09 Normal [facility] COVID Quick Testingon 2020 Result Negative [facility] Other Vital Signs Date Time Vital Sign Value Performing Clinician Facility 01-19-2025 15:0400 Body height 160 cm [employer] DO Work Phone: [employer] [facility] 01-19-2025 15:190400 Body mass index (BMI) [Ratio] 24.1 kg/m2 [employer] DO Work Phone: [employer] [facility] 01-19-2025 15:040 Body temperature 98.01 [degF] Rohith Furlong DO Work Phone: [facility] 01-19-2025 15:19-0400 Body weight 61.69 kg Rohith Furlong DO Work Phone: [facility] 01-19-2025 15:19-0400 Diastolic blood pressure 82 mm[Hg] Rohith Furlong DO Work Phone: [facility] 01-19-2025 15:19-0400 Heart rate 94 /min Rohith Furlong DO Work Phone: [facility] 01-19-2025 15:19-0400 Respiratory rate 18 /min Rohith Furlong DO Work Phone: [facility] 01-19-2025 15:19-0400 SaO2% (BldA) [Mass fraction] 93 % Rohith Furlong DO Work Phone: [facility] 01-19-2025 15:19-0400 Systolic blood pressure 124 mm[Hg] Rohith Furlong DO Work Phone: [facility] 02-22-2024 11:04-0400 Body height 160 cm Rohith Furlong DO Work Phone: [facility] 02-22-2024 11:04-0400 Body mass index (BMI) [Ratio] 23.24 kg/m2 Rohith Furlong DO Work Phone: [facility] 02-22-2024 11:04-0400 Body temperature 97.81 [degF] Rohith Furlong DO Work Phone: [facility] 02-22-2024 11:04-0400 Body weight 59.51 kg Rohith Furlong DO Work Phone: [facility] 02-22-2024 11:04-0400 Diastolic blood pressure 58 mm[Hg] Rohith Furlong DO [facility] Phone[facility] [employer] [facility] 02-22-2024 11:04-0400 Heart rate 79 /min Rohith Furlong DO Work Phone[facility] [employer] [facility] 02-22-2024 11:04-0400 Respiratory rate 18 /min Rohith Furlong DO Work Phone: [facility] 02-22-2024 11:04-0400 SaO2% (BldA) [Mass fraction] 96 % Rohith Furlong DO Work Phone[facility] 02-22-2024 11:04-0400 Systolic blood pressure 118 mm[Hg] Rohith Furlong DO Work Phone: [facility] 09-01-2023 15:20-0400 Body height 160 cm Rohith Furlong DO Work Phone: [facility] 09-01-2023 15:20-0400 Body mass index (BMI) [Ratio] 23.74 kg/m2 Rohith Furlong DO Work Phone: [facility] 09-01-2023 15:20-0400 Body temperature 98.4 [degF] Rohith Furlong DO Work Phone: [facility] 09-01-2023 15:20-0400 Body weight 60.78 kg Rohith Furlong DO Work Phone: [facility] 09-01-2023 15:20-0400 Diastolic blood pressure 72 mm[Hg] Rohith Furlong DO Work Phone[facility] 09-01-2023 15:20-0400 Heart rate 82 /min Rohith Furlong DO Work Phone: [facility] 09-01-2023 15:20-0400 Respiratory rate 18 /min Rohith Furlong DO Work Phone: [facility] 09-01-2023 15:20-0400 SaO2% (BldA) [Mass fraction] 94 % Rohith Furlong DO Work Phone: [facility] 09-01-2023 15:20-0400 Systolic blood pressure 110 mm[Hg] Rohith Furlong DO Work Phone: [facility] 07-31-2023 10:55-0500 Body height 160 cm Rohith Furlong DO Work Phone: [facility] 07-31-2023 10:55-0500 Body mass index (BMI) [Ratio] 23.38 kg/m2 Rohith Furlong DO Work Phone: [facility] 07-31-2023 10:55-0500 Body temperature 97.9 [degF] Rohith Furlong DO Work Phone: [facility] 07-31-2023 10:55-0500 Body weight 59.88 kg Rohith Furlong DO Work Phone: [facility] 07-31-2023 10:55-0500 Diastolic blood pressure 70 mm[Hg] Rohith Furlong DO Work Phone: [facility] 07-31-2023 10:55-0500 Heart rate 100 /min Rohith Furlong DO Work Phone: [facility] 07-31-2023 10:55-0500 SaO2% (BldA) [Mass fraction] 95 % Rohith Furlong DO Work Phone: [facility] 07-31-2023 10:55-0500 Systolic blood pressure 120 mm[Hg] Rohith Furlong DO Work Phone: [facility] 06-15-2023 15:31-0500 Body height 160 cm Anais Muñoz APRN-MATERIAL CARRIER Work Phone: [facility] 06-15-2023 15:31-0500 Body mass index (BMI) [Ratio] 24.13 kg/m2 Anais Muñoz APRN-MATERIAL CARRIER Work Phone: [facility] 06-15-2023 15:31-0500 Body temperature 97.81 [degF] Anais MORANMATERIAL CARRIER Work Phone: [employer] 06-15-2023 15:31-0500 Body weight 61.78 kg Anais MORANMATERIAL CARRIER Work Phone: [employer] 06-15-2023 15:31-0500 Diastolic blood pressure 60 mm[Hg] Anais MORANMATERIAL CARRIER Work Phone: [employer] 06-15-2023 15:31-0500 Heart rate 81 /min Anais MORANMATERIAL CARRIER Work Phone: [employer] 06-15-2023 15:31-0500 SaO2% (BldA) [Mass fraction] 94 % Anais MORANMATERIAL CARRIER Work Phone: [employer] 06-15-2023 15:31-0500 Systolic blood pressure 110 mm[Hg] Anais MORANMATERIAL CARRIER Work Phone: [employer] 05-31-2022 13:30-0500 Body height 160.02 cm Janice Rahman Other [facility] Other 05-31-2022 13:30-0500 Body mass index (BMI) [Ratio] 26.04 kg/m2 Janice Rahman Other [facility] Other 05-31-2022 13:30-0500 Body temperature 97.8 [degF] Janice Lacey Other [facility] Other 05-31-2022 13:30-0500 Body weight 66.68 kg Janice Rahman Other [facility] Other 05-31-2022 13:30-0500 Diastolic blood pressure 74 mm[Hg] Janice Rahman Other [facility] Other 05-31-2022 13:30-0500 Respiratory rate 18 /min Janice Dixonmond Other [facility] Other 05-31-2022 13:30-0500 SaO2% (BldA) [Mass fraction] 98 % Janice Lacey Other [facility] Other 05-31-2022 13:30-0500 Systolic blood pressure 118 mm[Hg] Janice Lacey Other [facility] Other 11-30-2021 15:35-0400 Body height 160.02 cm Janice Lacey Other [facility] Other 11-30-2021 15:35-0400 Body mass index (BMI) [Ratio] 25.68 kg/m2 Janice Lacey Other [facility] Other 11-30-2021 15:35-0400 Body temperature 97.7 [degF] Janice Lacey Other [facility] Other 11-30-2021 15:35-0400 Body weight 65.77 kg Janice Lacey Other [facility] Other 11-30-2021 15:35-0400 Respiratory rate 18 /min Janice Lacey Other [facility] Other 11-30-2021 15:35-0400 SaO2% (BldA) [Mass fraction] 96 % Janice Lacey Other [facility] Other Encounters Encounter Date Encounter Type Care Provider Facility Start: 01-19-2025 End: 01-19-2025 Patient encounter status Rohith Archer DO Work Phone: [facility] Start: 01-19-2025 End: 01-19-2025 Periodic preventive med est patient 40-64yrs Rohith Archer DO Work Phone: [facility] Comment on above: Well adult exam (Whitney anais Dx); Chronic obstructive pulmonary disease, unspecified COPD type (CMS-HCC); Pain in both lower extremities; Chronic bilateral low back pain without sciatica; Acute pain of left shoulder; Ex-cigarette smoker; Need for shingles vaccine Start: 01-19-2025 End: 01-19-2025 ambulatory [facility] Start: 01-19-2025 Encounter for genera l adult medical examination without abnormal findings [facility] Start: 04-14-2024 End: 04-14-2024 ambulatory Eveline Ozuna MD Facility[facility] Start: 03-24-2024 End: 03-24-2024 ambulatory Eveline Ozuna MD Facility[facility] Start: 03-10-2024 End: 03-10-2024 ambulatory Eveline Ozuna MD Facility:[facility] Start: 02-26-2024 End: 02-28-2024 Evaluation and management of inpatient Rohith Archer DO Facility:[facility] Start: 02-24-2024 End: 02-24-2024 Orders Only Rohith Archer DO Work Phone: [facility] Comment on above: Lung nodule, solitar y (Primary Dx) Start: 02-22-2024 End: 02-22-2024 Office outpatient visit 15 minutes Rohith Archer DO Work Phone: [facility] Comment on above: Pre-op evaluation (P rimary Dx); Chronic obstructive pulmonary disease, unspecified COPD type (CMS-HCC); Rectal prolapse Start: 02-22-2024 End: 02-22-2024 Preprocedural examination done Rohith Archer DO Work Phone: [employer] Work Phone: Start: 02-22-2024 End: 02-22-2024 ambulatory [facility] Start: 02-18-2024 End: 02-18-2024 [facility] Start: 02-16-2024 End: 02-16-2024 ambulatory [facility] Start: 02-09-2024 End: 02-09-2024 ambulatory Eveline Ozuna MD [facility] Start: 02-04-2024 End: 02-04-2024 [facility] Start: 09-01-2023 End: 09-02-2023 ambulatory [facility] Start: 09-01-2023 Encounter for genera l adult medical examination without abnormal findings [facility] Start: 09-01-2023 End: 09-01-2023 Patient encounter status Rohith Arcehr DO Work Phone: [facility] Work Phone: Start: 09-01-2023 End: 09-01-2023 Periodic preventive med est patient 40-64yrs Rohith Archer DO Work Phone: [facility] Comment on above: Well adult health ch bobby (Primary Dx); Thoracic region somatic dysfunction; Ex-cigarette smoker; Encounter for screening mammogram for malignant neoplasm of breast; Myalgia Start: 08-07-2023 Orders Only Anais Muñoz [employer]RIER Work Phone: [facility] Comment on above: Rib pain on right si de (Primary Dx) Start: 07-31-2023 End: 07-31-2023 Office outpatient visit 15 minutes Rohtih Archer DO [facility] Comment on above: Acute pain of left s houlder (Primary Dx) Start: 07-17-2023 End: 07-18-2023 ambulatory [facility] Start: 07-01-2023 Orders Only Anais Muñoz [employer] INST[employer]ER-[employer]ERIAL CARRIER Work Phone: [facility] Comment on above: Other chest pain (Pr imary Dx); Ventricular premature depolarization Start: 06-29-2023 End: 06-30-2023 ambulatory SARAY Donato [facility] Start: 06-17-2023 Orders Only Anais Muñoz [employer] INSTALLER-MATERIAL CARRIER Work Phone: [facility] Comment on above: Other chest pain (Pr imary Dx) Acute chest wall erwin n (Primary Dx) Start: 06-15-2023 End: 06-15-2023 Office outpatient visit 15 minutes Anais Muñoz [employer] INSTALLER-MATERIAL CARRIER Work Phone: [facility] Comment on above: Acute chest wall erwin n (Primary Dx) Start: 05-30-2023 Refill Rohith gramajo DO Work Phone: [facility] Comment on above: Mixed hyperlipidemia Start: 01-14-2023 End: 01-15-2023 ambulatory Rohit YEH Facility:CD:[id number] Start: 12-16-2022 End: 12-17-2022 ambulatory ROHITH ARCHER Facility:[facility] Start: 11-27-2022 ambulatory ROHITH ARCHER Facility :[facility] Start: 09-29-2022 End: 09-30-[address] ROHITH ARCHER Facility:[facility] Start: 05-31-2022 End: 05-31-2022 ambulatory Janice Rahman Facility:[facility] Start: 05-31-2022 Office outpatient vi sit 25 minutes Janice Rahman [facility] Start: 05-31-2022 End: 05-31-2022 ambulatory DO Rohith Archer Work Phone: [facility] Work Phone: Start: 05-31-2022 End: 05-31-2022 Patient encounter procedure DO Rohith Furlong Work Phone: [facility] Work Phone: Start: 11-30-2021 End: 11-30-2021 ambulatory Janicekaylee Rahman Other [facility] Other Start: 11-30-2021 Office outpatient vi sit 15 minutes Janice Lacey [facility] Start: 10-12-2021 End: 10-13-[address] ROHITH ARCHER Facility:[facility] Start: 04-17-2021 End: 04-17-2021 ambulatory Janice Rahman Other [facility] Other Start: 04-17-2021 Office outpatient vi sit 5 minutes Janice Lacey [facility] Procedures Date Procedure Procedure Detail Performing Clinician Start: 01-19-2025 Comprehensive metabo lic panel Rohith G Furlong DO Work Phone: Start: 01-19-2025 Lipid panel Rohith Mario Falcon urlong DO Work Phone: Start: 01-19-2025 Adult depression scr eening assessment Rohith Furlong DO Work Phone: Start: 12-15-2024 Mammography Rohith Fur long DO Work Phone: Start: 02-22-2024 Adult depression scr eening assessment Rohith Furlong DO Work Phone: Start: 10-06-2023 Mammography Rohith Fur long DO Work Phone: Start: 09-01-2023 Adult depression scr eening assessment Rohith Furlong DO Work Phone: Start: 07-31-2023 Adult depression scr eening assessment Rohith Furlong DO Work Phone: Start: 06-15-2023 Ecg routine ecg w/le ast 12 lds w/i&r Anais Muñoz [employer] INST[employer]ER-MATERIAL CARRIER Work Phone: Start: 06-15-2023 Adult depression scr eening assessment Anais Muñoz [employer] INSTALLER-MATERIAL CARRIER Work Phone: Start: 01-14-2023 Colonoscopy Rohith Fur long DO Work Phone: Start: 12-08-2022 Adult depression scr eening assessment Rohith Furlong DO Work Phone: Start: 05-31-2022 Plain chest X-ray DO De nnis Furlong Work Phone: Plan of Treatment Date Care Activity Detail Author Start: 01-14-2033 Screening for malign ant neoplasm of colon Colonoscopy [facility] Start: 03-22-2029 DTaP,Tdap and Td Vaccines (2 - Td or Tdap) DTaP,Tdap and Td Vaccines (2 - Td or Tdap) [facility] Start: 01-19-2026 Adult BMI Screening Adult BMI Screen ing [facility] Start: 01-19-2026 Depression Screening Depression Scre ening [facility] Start: 01-19-2026 Tobacco Screening Tobacco Screening [facility] Start: 12-15-2025 Screening for malign ant neoplasm of breast Mammogram [facility] Start: 03-16-2025 Administration of varicella zoster vaccine Zoster (Shingles) Vaccine (2 of 2) [facility] Start: 02-21-2025 Adult BMI Screening Adult BMI Screen ing [facility] Start: 02-21-2025 Depression Screening Depression Scre ening [facility] Start: 02-21-2025 Tobacco Screening Tobacco Screening [facility] Start: 02-03-2025 End: 02-03-2025 Patient encounter procedure 02/03/2025 3:30 PM EDT Appointment [facility] [address] [place] [id number] [facility] Start: 02-03-2025 End: 02-03-2025 Patient encounter procedure 02/03/2025 1:30 PM EDT Appointment [facility] [address] [place] [address] [facility] Start: 01-23-2025 Influenza vaccination Influenza Vacc ine [facility] Start: 01-19-2025 End: 01-19-2026 CT Chest for screening WO contrast CT low dose lung screening (Annual) Imaging Routine Ex-cigarette smoker Expected: 01/19/2025, Expires: 01/19/2026 [employer] Work Phone: Comment on above: Expected: 01/19/2025 , Expires: 01/19/2026 Start: 01-19-2025 End: 01-19-2026 US.doppler Extremity arteries - bilateral for physiologic artery study limited Vas art doppler lwr limited single Vascular Ultrasound Routine Pain in both lower extremities Expected: 01/19/2025, Expires: 01/19/2026 [facility] Comment on above: Expected: 01/19/2025 , Expires: 01/19/2026 Start: 01-19-2025 End: 01-19-2026 US.doppler Lower extremity artery - bilateral Vas art duplex lwr bilateral Vascular Ultrasound Routine Pain in both lower extremities Expected: 01/19/2025, Expires: 01/19/2026 [facility] Comment on above: Expected: 01/19/2025 , Expires: 01/19/2026 Start: 01-19-2025 End: 01-19-2026 XR Lumbar spine 2 or 3 Views X-ray spine lumbar 2 or 3 views Imaging Routine Chronic bilateral low back pain without sciatica Expected: 01/19/2025, Expires: 01/19/2026 [facility] Comment on above: Expected: 01/19/2025 , Expires: 01/19/2026 Start: 01-19-2025 End: 01-19-2026 XR Shoulder - left 2 Views X-ray shoulder left minimum 2 views Imaging Routine Acute pain of left shoulder Expected: 01/19/2025, Expires: 01/19/2026 [facility] Comment on above: Expected: 01/19/2025 , Expires: 01/19/2026 Start: 10-05-2024 Screening for malign ant neoplasm of breast Mammogram [facility] Start: 08-31-2024 Adult BMI Screening Adult BMI Screen ing [facility] Start: 08-31-2024 Depression Screening Depression Scre ening [facility] Start: 08-31-2024 Tobacco Screening Tobacco Screening [facility] Start: 07-30-2024 Adult BMI Screening Adult BMI Screen ing [facility] Start: 07-30-2024 Depression Screening Depression Scre ening [facility] Start: 07-30-2024 Tobacco Screening Tobacco Screening [facility] Start: 06-29-2024 Adult BMI Screening Adult BMI Screen ing [facility] Start: 06-15-2024 Adult BMI Screening Adult BMI Screen ing [facility] Start: 06-15-2024 Depression Screening Depression Scre ening [facility] Start: 06-15-2024 Tobacco Screening Tobacco Screening [facility] Start: 05-25-2024 Administration of varicella zoster vaccine Zoster (Shingles) Vaccine (1 of 2) [facility] Comment on above: Postponed from 11/16 (Patient Refused) Start: 05-25-2024 COVID-19 Vaccine ( season) COVID-19 Vaccine ( season) [facility] Comment on above: Postponed from 01/23 (Patient Refused) Start: 02-24-2024 End: 02-23-2025 CT Chest limited W contrast IV CT chest with contrast Imaging Routine Lung nodule, solitary Expected: 02/24/2024, Expires: 02/23/2025 [facility] Work Phone: Comment on above: Expected: 02/24/2024 , Expires: 02/23/2025 Start: 01-24-2024 COVID-19 Vaccine ( season) COVID-19 Vaccine ( season) [facility] Start: 01-24-2024 COVID-19 Vaccine ( season) COVID-19 Vaccine ( season) [facility] Start: 01-24-2024 Influenza vaccination Influenza Vacc ine [facility] Start: 12-09-2023 Adult BMI Screening Adult BMI Screen ing [facility] Start: 12-09-2023 Depression Screening Depression Scre ening [facility] Start: 12-09-2023 Tobacco Screening Tobacco Screening [facility] Start: 09-01-2023 End: 09-01-2023 Patient encounter procedure 09/01/2023 3:30 PM EDT [facility] [address] [place] [address] Rohith Archer, DO [address], [place] [address] [facility] Start: 09-01-2023 End: 08-31-2024 CT Chest for screening WO contrast CT low dose lung screening (Annual) Imaging Routine Ex-cigarette smoker Expected: 09/01/2023, Expires: 08/31/2024 [employer] Work Phone: Comment on above: Expected: 09/01/2023 , Expires: 08/31/2024 Start: 09-01-2023 End: 08-31-2024 DBT Breast - bilateral screening Mammography screening bilateral with CAD Imaging Routine Encounter for screening mammogram for malignant neoplasm of breast Expected: 09/01/2023, Expires: 08/31/2024 [facility] Comment on above: Expected: 09/01/2023 , Expires: 08/31/2024 Start: 07-31-2023 End: 07-30-2024 XR Shoulder - left 2 Views X-ray shoulder left minimum 2 views Imaging Routine Acute pain of left shoulder Expected: 07/31/2023, Expires: 07/30/2024 [email or web address] Phone: Comment on above: Expected: 07/31/2023 , Expires: 07/30/2024 Start: 07-01-2023 End: 07-01-2024 Echo stress treadmill W/O contrast Echo stress treadmill W/O contrast Cardiac Services Routine Other chest pain Ventricular premature depolarization Expected: 07/01/2023, Expires: 07/01/2024 [employer] Work Phone: Comment on above: Expected: 07/01/2023 , Expires: 07/01/2024 Start: 06-17-2023 End: 06-17-2024 Exercise stress test study Stress test (exercise only) [facility] Routine Other chest pain Expected: 06/17/2023, Expires: 06/17/2024 [employer] Work Phone: Comment on above: Expected: 06/17/2023 , Expires: 06/17/2024 Start: 06-15-2023 End: 06-15-2024 XR Ribs - left Views and Chest PA X-ray ribs left 3 views with pa chest Imaging Routine Acute chest wall pain Expected: 06/15/2023, Expires: 06/15/2024 [employer] Work Phone: Comment on above: Expected: 06/15/2023 , Expires: 06/15/2024 Start: 01-23-2023 COVID-19 Vaccine ( season) COVID-19 Vaccine ( season) [facility] Start: 01-23-2023 Influenza vaccination Influenza Vacc ine [facility] Start: 2010 Administration of varicella zoster vaccine Zoster (Shingles) Vaccine (1 of 2) [facility] Start: 2000 Screening for malign ant neoplasm of breast Mammogram [facility] Start: 1981 Screening for malign ant neoplasm of cervix Pap Smear [facility] End: 02-23-2025 Creatinine includes GFR, serum Creatinine includes GFR, serum Lab Routine Lung nodule, solitary 1 Occurrences starting 02/24/2024 until 02/23/2025 [facility] Comment on above: 1 Occurrences starti ng 02/24/2024 until 02/23/2025 Immunizations Immunization Date Immunization Notes Care Provider Greg marquez 01-19-2025 zoster vaccine recombinant Rohith Archer DO Work Phone: [facility] 01-19-2025 Immunization, In Clinic,; Translations: [Drug or medicament (substance)] Rohith Jayaedwardo DO Work Phone: [facility] 01-19-2025 zoster vaccine, unspecified formulation Rohith Furlong DO Work Phone: [facility] 03-22-2019 Influenza, injectabl e, Madin Selina Canine Kidney, quadrivalent with preservative Rohith Furlong DO Work Phone: [facility] 03-22-2019 tetanus toxoid, redu jenn diphtheria toxoid, and acellular pertussis vaccine, adsorbed Rohith Furlong DO Work Phone: [facility] 03-22-2019 influenza virus vaccine, unspecified formulation Rohith Furlong DO Work Phone: [facility] Payers Date Payer Category Payer Self-pay [id number] 2016 Commercial Managed C are - POS [employer] [id number] 2016 Private Health Insurance 1960 Unknown [id number] 9.2.593 1960 Unknown [id number] 2.840.1.315354.3.57 9.2.593 1960 Unknown [id number] 2.840.1.106827.3.57 9.2.727 1960 Unknown [id number] 2.16.840.1.469387.3.57 9.2.727 1960 Unknown [id number] 2.16.840.1.828537.3.57 9.2.1286 1960 Unknown [id number] 2.16.840.1.598149.3.57 9.2.1286 1960 Unknown [id number] 2.16.840.1.871835.3.57 9.2.128 1960 Unknown [id number] 2.16.840.1.876265.3.57 9.2.196 1960 Unknown [id number] 2.16.840.1.666062.3.57 9.2.196 1960 Unknown [id number] 2.16.840.1.550608.3.57 9.2.196 1960 Unknown [id number] 2.16840.1.106525.3.57 9.2.196 1960 Unknown [id number] 2.16.840.1.847909.3.57 9.2.196 1960 Unknown [id number] 2.16.840.1.685807.3.57 9.2.196 1960 Unknown [id number] 2.16.840.1.962282.3.57 9.2.196 1960 Unknown [id number] 2.16.840.1.948555.3.57 9.2.196 1960 Unknown [id number] 2.16.840.1.923957.3.57 9.2.196 1960 Unknown [id number] 2.16.840.1.896661.3.57 9.2.196 1960 Unknown [id number] 2.16.840.1.062498.3.57 9.2.196 1960 Unknown [id number] 2.16.840.1.825644.3.57 9.2.128 1960 Unknown [id number] 2.16.840.1.465176.3.57 9.2.1286 1959 Private Health Insurance [id number] Private Health Insurance [id number] [id number] Unknown [id number] 2.16.840.1.352839.3.57 9.2.531 Social History Date Type Detail Facility Unknown if ever smoked [facility] Other Start: 08-25-2022 End: 09-01-2023 Sex Assigned At [facility] Other Start: 1960 Sex Assigned At Female [facility] Start: 08-25-2022 End: 02-22-2024 Tobacco smoking status NHIS Ex-smoker [facility] Start: 11-17-1973 End: 11-28-2020 History of tobacco use Current smoker [facility] Start: 11-17-1973 End: 11-28-2020 History of tobacco use Cigarette Smoker [facility] Start: 08-25-2022 End: 09-01-2023 Cigarettes smoked current (pack per day) - Reported 1 [facility] Start: 08-25-2022 End: 02-22-2024 Tobacco use and exposure Smokeless tobacco non-user [facility] Start: 01-22-2023 End: 01-19-2025 Alcohol intake Lifetime non-drinker (finding) [facility] Do you belong to any clubs or organizations such as yarsanism groups, unions, fraternal or athletic groups, or school groups? No [facility] Are you now , , , , never or living with a partner? Never [facility] How often to you hav e a drink containing alcohol? Never [facility] How many standard dr inks containing alcohol do you have on a typical day? Patient does not drink [facility] Do you feel stress - tense, restless, nervous, or anxious, or unable to sleep at night because your mind is troubled all the time - these days [OSQ] Only a little [facility] Start: 1960 Sex Assigned At Not on file [facility] Start: 12-26-2014 Sex Female (finding) [facility] Clinical Notes 04-17-2021 to 01-19-2025 Rohith Archer, DO - 01/19/2025 3:15 PM EDTRohith Archer, DO - 02/22/2024 11:00 AM EDTRohith Archer, DO - 09/01/2023 3:30 PM EDTMary Candice Muñoz, LAWN SPRINKLER INSTALLER- MATERIAL CARRIER - 08/07/2023 12:21 PM EDT Note Date & Type Note Facility 01-19-2025 History of Present illness Narrative Subjective Patient ID: Petrona Gordon is a 64 y.o. female. Petrona is here today for annual wellness exam. [...] for it thinking it came from her axilla but it has advanced to involve her entire shoulder. She has limited active and passive range of motion in her left shoulder. She also has been having low back pain that is centered in her low back. It doesn't travel down her legs. She doesn't have bowel or bladder symptoms. She is having muscle cramps throughout her body which she takes pickle juice and supplements for to minimal relief. She states the cramps are worst [...] and couldn't see it. She is wondering what she needs to do to get disability. The [...] normal. Assessment/Plan Petrona was seen today for wellness. Diagnoses and [...] pulmonary disease, unspecified COPD type (CMS-HCC) She has known COPD. She had not [...] check electrolytes. Continue with pickle juice an ivkv-czp-[id number] supplements for leg cramps. Ensure adequate hydration. Chronic bilateral low back pain without sciatica - X-ray spine lumbar 2 or 3 views; Future She is having chronic low back pain without any imaging thumb going to check an x-ray of her lumbar spine. Consider pain management, physical therapy. Can try [id number]-[id number] analgesics Acute pain of left shoulder - X-ray shoulder left minimum 2 views; Future Symptoms seem to be consistent with impingement syndrome possibly rotator cuff injury. Try shoulder exercises. Consider cortisone injections, physical therapy. Check x-ray of left shoulder We will recheck in 1 year but she can come back sooner for further management of her shoulder and back pain. Bruno Serrato, MS3 [facility] documented in this encounter [employer] 02-29-2024 Note Subjective Patient feels well had [...] Auto 7.4 % (Low) 02/27/2024 04:54 EDT [place]re Auto 9.5 % 02/28/2024 04:54 EDT [place] Auto 7.8 % 02/27/2024 04:54 EDT Eos Auto 0.8 % 02/28/2024 04:54 EDT Eos Auto 0.0 % 02/27/2024 04:54 EDT Basophil Auto 0.8 % 02/28/2024 04:54 EDT Basophil Auto 0.3 % 02/27/2024 04:54 EDT Neutro Absolute 5.3 x10 Neutro Absolute 9.9 x10 Lymph Absolute 2.2 x10 Lymph Absolute 0.9 x10 [place] Absolute 0.8 x10 [place] Absolute 0.9 x10 Eos Absolute 0.1 x10 [...] Senait RODRÍGUEZ, Iván Kimble 03/02/24 10:56 EDT [facility] 02-26-2024 Note Clinical Information Procedure: Sigmoid [...] colon, removed for repair of rectal prolapse. [id number] Markie Garcia MD PhD (Electronically signed by) Verified: 03/02/24 14:20 [facility] Comment on above: Performed By: #### S RI #### [facility] (DEFAULT) [address] [place] [address] 02-22-2024 History of Present illness Narrative Subjective [...] chest pain like when she goes to [employer] and [place] [email or web address] [place]. She had pre-surgical testing last week. Pre-op [...] Head: Normocephalic. Nose: Nose normal. Mouth/Throat: Lips: [place]. Mouth: Mucous membranes are moist. Dentition: Has [...] surgeon for treatment. documented in this encounter [facility] 09-01-2023 History of Present illness Narrative [...] ear normal. Nose: Nose normal. Mouth/Throat: Lips: [place]. Mouth: Mucous membranes are moist. Pharynx: Oropharynx [...] total) before bedtime. documented in this encounter [employer] 08-07-2023 History of Present illness Narrative Spoke [...] Casey 08/07/23 1226 documented in this encounter [facility] 07-31-2023 History of Present illness Narrative [...] Negative empty can test. Equivocal impingement sign ugrzx-[id number]-Nquefhc and Neer's test. Negative Adson's test. Neurological: [...] Shoulder exercises given. [facility] History of Present illness Narrative Subjective [...] Casey 06/15/23 1741 documented in this encounter [facility] 12-16-2022 Note Chief Complaint consultation for [...] Recorded SARS-CoV-2 (COVID-19) mRNA-1273 vaccine 09/20/2020 Recorded [facility] Comment on above: Result Comment: Elec tronically [...] May, Right-sided chest pain (ICD-10 - R07.9) [employer] Other 07-09-2022 Evaluation note* Encounter Date Diagnosis [...] Patient care instructions given in writing by [facility] At Home document. [employer] Other 11-24-2021 Evaluation note* Encounter Date Diagnosis [...] Patient care instructions given in writting by [facility] document. [employer] Other evaluation noteNo assessment information available [facility] Work Phone: evaluation note* Diagnosis Mixed hyperlipidemia [facility] Diagnosis Acute chest wall pain- Primary [facility] Diagnosis Other chest pain- Primary [facility] Diagnosis Acute chest wall pain- Primary [facility] Diagnosis Other chest pain- Primary Ventricular premature depolarization Other premature beats [facility] Diagnosis Acute pain of left shoulder- Primary [facility]* Diagnosis Rib pain on right side- Primary [facility]* Diagnosis Well adult health check- Primary Unspecified general medical examination Thoracic region somatic dysfunction Nonallopathic lesion of thoracic region, not elsewhere classified Ex-cigarette smoker Personal history of tobacco use, presenting hazards to health Encounter for screening mammogram for malignant neoplasm of breast Myalgia Unspecified myalgia and myositis [facility]* Diagnosis Pre-op evaluation- Primary Chronic obstructive pulmonary disease, unspecified COPD type ([facility]) Rectal prolapse documented [facility]* Diagnosis Lung nodule, solitary- Primary [facility]* Diagnosis Well adult exam- Primary Routine general [...] inoculation against varicella documented in this encounter [facility] Narrative - Reported* Type Description Date Surgical History tonsillectomy Surgical History cholecystectomy Surgical History tubal ligation Surgical History cyst removal from neck Hospitalization History see above [facility] Other InstructionsNot on filedocumented in this encounter [facility] SystemInstructionsNot on filedocumented in this encounter [facility] SystemInstructionsNot on filedocumented in this encounter [facility] SystemInstructionsNot on filedocumented in this encounter [facility] System[facility]* Attachments The following attachments cannot be sent through Care Everywhere. * Rotator Cuff Tendinitis Stretching Exercises (Japanese) * Shoulder Bursitis Exercises (Japanese) [facility] SystemInstructionsNot on file documented in this [facility]Pro[facility] SystemInstructionsNot on file [facility] in [facility] SystemInstructionsNot on file [facility] SystemInstructionsNot on file documented in [facility] Advance Directives No Advanced Directives Records [...] nodule, solitary Procedures CT chest with contrast JayaRohith brooke, DO [address] [place] [address] Referral ID Status Reason Start Date Expiration Date V isits Requested Visits Authorized [id number] Pending Review 02/24/2024 02/23/2025 1 1 Specialty Diagnoses / Procedures Referred By Contac t Referred To Contact Diagnoses Ex-cigarette smoker Procedures CT low dose lung screening (Annual) Rohith Archer, DO [address], [facility] [place] [id number] Referral ID Status Reason Start Date Expiration Date V isits Requested Visits Authorized [id number] Pending Review 09/01/2023 08/31/2024 1 1 Specialty Diagnoses / Procedures Referred By Contac t Referred To Contact Diagnoses Other chest pain Ventricular premature depolarization Procedures Echo stress treadmill W/O contrast Anais Muñoz, LAWN SPRINKLER INSTALLER-MATERIAL CARRIER [address] [place] [address] Referral ID Status Reason Start Date Expiration Date V isits Requested Visits Authorized [id number] Pending Review 07/01/2023 06/30/2024 5 5 Specialty Diagnoses / Procedures Referred By Contac t Referred To Contact Diagnoses Other chest pain Procedures Stress test (exercise only) Anais Muñoz, LAWN SPRINKLER INSTALLER-MATERIAL CARRIER [address] [place] [address] Referral ID Status Reason Start Date Expiration Date V isits Requested Visits Authorized [id number] Pending Review 06/17/2023 06/16/2024 5 5 Additional Source Comments REASON FOR VISIT (unrecogniz ed section and content) Reason Comments Med Refill Reason Comments Cough Chest pain. 3 weeks Reason Comments Shoulder Pain Reason Comments Annual Exam Hand and back hurt s o bad. Been taking Tylenol arthritis, Aleve back and body also Reason Comments Pre-op Exam Colon 02/25 Reason Comments wellness Care Teams (unrecognized sec tion and content) Team Status: Inactive Member Role Status Dates Rohith Archer DO Primary Care Provider Active JENNIE SteeleC Attending Provider Active Team Status: Active Member Role Status Dates Rohith Archer DO Primary Care Provider Active Supervisor Coil Winding Relationship Specialty Start Date End Date Rohith Archer DO [address] [place] [address] PCP - General Family Medicine 06/02/22 Supervisor Coil Winding Relationship Specialty Start Date End Date Rohith Archer DO [address] [place] [address] PCP - General Family Medicine 06/02/22 Supervisor Coil Winding Relationship Specialty Start Date End Date Rohith Archer DO [address] [place] [address] PCP - General Family Medicine 06/02/22 Supervisor Coil Winding Relationship Specialty Start Date End Date Rohith Archer DO [address] [place] [address] PCP - General Family Medicine 06/02/22 Supervisor Coil Winding Relationship Specialty Start Date End Date Rohith Archer DO [address] [place] [address] PCP - General Family Medicine 06/02/22 Supervisor Coil Winding Relationship Specialty Start Date End Date Rohith Archer DO [address], [place] [address] PCP - General Family Medicine 06/02/22 Supervisor Coil Winding Relationship Specialty Start Date End Date Rohith Archer DO [address], [place] [address] PCP - General Family Medicine 06/02/22 Supervisor Coil Winding Relationship Specialty Start Date End Date Rohith Archer DO [address], [place] [address] PCP - General Family Medicine 06/02/22 Supervisor Coil Winding Relationship Specialty Start Date End Date Rohith Archer DO [address], [place] [address] PCP - General Family Medicine 06/02/22 Supervisor Coil Winding Relationship Specialty Start Date End Date Rohith Archer DO [address], [place] [address] PCP - General Family Medicine 06/02/22 Goals (unrecognized section and content) Goals may be documented in a n alternate section INFORMATION SOURCE (unrecogn ized section and content) DATE CREATED AUTHOR 06/18/2022 [facility] DATE CREATED AUTHOR AUTHOR'S ORGANIZ ATION 10/03/2022 [facility] DATE CREATED AUTHOR AUTHOR'S ORGANIZ ATION 01/22/2023 [facility] DATE CREATED AUTHOR AUTHOR'S ORGANIZ ATION 07/24/2023 [facility] DATE CREATED AUTHOR AUTHOR'S ORGANIZ ATION 09/03/2023 [facility] DATE CREATED AUTHOR AUTHOR'S ORGANIZ ATION 04/18/2024 [facility] DATE CREATED AUTHOR AUTHOR'S ORGANIZ ATION 01/21/2025 [facility] FOR RECORDS PERTAINING TO PATIENTS WHO ARE [...] BE BASED ON THE PRIMARY CLINICAL RECORDS. [email or web address] [facility]. provides no warranty or guarantee of the accuracy or completeness of information in this document.
== END 2025-01-25 16:12 | disposition home or self-care (01) ==
PROVIDERS: PCP Family Medicine; Visit Provider Family Medicine
DX: M54.50 Low back pain, unspecified (principal); G89.29 Other chronic pain; M25.512 Pain in left shoulder; M51.369 Other intervertebral disc degeneration, lumbar region without mention of lumbar back pain or lower extremity pain
CPT/HCPCS: 72100; 73030

== ENCOUNTER 2025-01-27 14:48 | Outpatient (OUT) | payer OTHER, SELFPAY ==
--- OUTSIDE RECORDS SUMMARY | 2025-01-19 15:15 | XMS_ITS | Encounter Summary ---
Author Organization [employer] tem Address [facility] [place], [id number] [address] [place] [address] Care Team Providers Care Bearing Ring Assembler Name Role Phone Rohith Archer DO Primary Care Provider [phone] Reason for Referral * Diagnostic Imaging (Routine) - Pending Review Specialty Diagnoses / Procedures Referred By Julianna mcleod Referred To Contact Diagnoses Ex-cigarette smoker Procedures CT low dose lung screening (Annual) Rohith Archer DO [address], [place] [address] Phone: tel: fax: Referral ID Status Reason Start Date Expiration Date V isits Requested Visits Authorized [id number] Pending Review 01/19/2025 01/19/2026 1 1 Reason for Visit * Reason Comments wellness Encounter Details Date Type Department Care Team (Late st Contact Info) Description 01/19/2025 3:15 PM EDT Office Visit [facility] Internal Medicine - Family Medicine [address] [place] [address] Rohith Archer DO [address], [place] [address] Well adult exam (Primary Dx); Chronic obstructive pulmonary disease, unspecified COPD type (CMS-HCC); Pain in both lower extremities; Chronic bilateral low back pain without sciatica; Acute pain of left shoulder; Ex-cigarette smoker; Need for shingles vaccine Social History Tobacco Use Types Packs/Day Years Used Date Smoking Tobacco: Former Cigarettes 1 47 0 11/17/1973 - 11/28/2020 Smokeless Tobacco: Never Alcohol Use Standard Drinks/Week Comments Never 0 (1 standard drink = 0.6 oz pur e alcohol) [facility] Utilities Answer Date Recorded In the past 12 months has e electric, gas, oil, or water company [...] often do you attend chur ch or holiness services? Never 08/25/2022 Do you belong to any clubs o r organizations such as advent groups, unions, fraternal or athletic groups, or [...] PHQ-2 Answer Date Recorded Total Score 0 01/19/2025 [facility] [place] [facility] Occupat ional Health - Occupational Stress [...] Recorded Do you need help finding a [employer] center and/or a training program? No 08/25/2022 Hunger Screening Answer Date Recorded Within the past 12 months we worried whether our food would run out before we got money to buy more. Never True 01/19/2025 Within the past 12 months th e food we bought just didn't last and we didn't have money to get more. Never True 01/19/2025 Purpose - Life Answer Date Recorded I have a purpose and direction in my life. Agree 09/01/2023 Comments No Sex and Gender Information Value Date Recorded Sex Assigned at Not on file Legal Sex Female 7:32 PM EDT Gender Identity Not on file Sexual Orientation Not on file documented as of this encounter Last Filed Vital Signs Vital Sign Reading Time Taken Comments Blood Pressure 124/82 01/19/2025 3:19 PM EDT Pulse 94 01/19/2025 3:19 PM EDT Temperature 36.7 C (98 F) 01/19/2025 3:19 PM EDT Respiratory Rate 18 01/19/2025 3:19 PM EDT Oxygen Saturation 93% 01/19/2025 3:19 PM EDT Inhaled Oxygen Concentration - - Weight 61.7 kg (136 lb) 01/19/2025 3:19 PM EDT Height 160 cm (5' 2.99 ) 01/19/2025 3:19 PM EDT Body Mass Index 24.1 01/19/2025 3:19 PM EDT documented in this encounter Progress Notes * Rohith Archer, DO - 01/19/2025 3:15 PM EDT Subjective Patient ID: Letitia Angeles is a 64 y.o. female. Letitia is here today for annual wellness exam. She recently had a sister who passed from lung cancer and is concerned for her own status. After hearing news of her sisters passing, she started having chest pain and went to the ED. Her EKG and imaging at the time came back negative for any cardio concerns, she was told to monitor her blood pressure. She has been recording it at home with an average around 135/80, today in office she measured 124/82. She is concerned about her shoulder which has been painful with movement and has limited range of motion for the last few months, because her sister who passed from lung cancer also had similar shoulder problems prior to passing. She previously saw our office for it thinking it came from her axillabut it has advanced to involve her entire shoulder. She has limited active and passive range of motion in her left shoulder. She also has been having low back pain that is centered in her low back. It doesn't travel down herlegs. She doesn't have bowel or bladder symptoms. She is having muscle cramps throughout her body which she takes pickle juice and supplements for tominimal relief. She states the cramps are worst in her back calf and hands. She has a history of COPD that is untreated, for which she is requesting an inhaler today. She denies any shortness of breath, chest pain, syncope, nausea, vomiting. She also has macular degeneration and needs injections in her eyes. She has central vision loss. She was at work the other day and went to look at something and couldn't see it. She is wondering whatshe needs to do to get disability. The following portions of the patient's history were reviewed and updated as appropriate: allergies, current medications, past family history, past medical history, past social history, past surgicalhistory, problem list, and medication reconciliation was completed including current medication andpost discharge medication. Review of Systems Constitutional: Negative. Negative for activity change, appetite change, fatigue, fever and unexpected weight change. HENT: Negative. Eyes: Positive for visual disturbance (Macular degeneration with vision loss on right eye). Respiratory: Positive for cough and shortness of breath. Negative for apnea, choking, chest tightness, wheezing and stridor. Cardiovascular: Negative. Negative for chest pain, palpitations and leg swelling. Gastrointestinal: Negative. Negative for abdominal distention, abdominal pain, blood in stool, constipation, diarrhea, nausea and vomiting. Endocrine: Negative. Genitourinary: Negative. Musculoskeletal: Positive for arthralgias, back pain and myalgias. Negative for gait problem and joint swelling. Skin: Negative. Allergic/Immunologic: Negative. Neurological: Negative. Negative for dizziness, seizures, syncope, weakness, numbness and headaches. Hematological: Negative. Psychiatric/Behavioral: Negative. Negative for agitation, behavioral problems and confusion. Objective Physical Exam Vitals reviewed. Constitutional: General: She is not in acute distress. Appearance: Normal appearance. She is normal weight. She is not ill-appearing, toxic-appearing or diaphoretic. HENT: Head: Normocephalic. Right Ear: Tympanic membrane, ear canal and external ear normal. There is no impacted cerumen. Left Ear: Tympanic membrane, ear canal and external ear normal. There is no impacted cerumen. Ears: Comments: Right ear has blood in front of tympanic membrane, TM is clear. Denies any pain, trauma, or hearing loss. Nose: Nose normal. No congestion or rhinorrhea. Mouth/Throat: Mouth: Mucous membranes are moist. Pharynx: Oropharynx is clear. No oropharyngeal exudate or posterior oropharyngeal erythema. Eyes: Extraocular Movements: Extraocular movements intact. Conjunctiva/sclera: Conjunctivae normal. Pupils: Pupils are equal, round, and reactive to light. Neck: Vascular: No carotid bruit. Cardiovascular: Rate and Rhythm: Normal rate and regular rhythm. Pulses: Normal pulses. Heart sounds: Normal heart sounds. No murmur heard. Pulmonary: Effort: Pulmonary effort is normal. No respiratory distress. Breath sounds: No stridor. No wheezing, rhonchi or rales. Chest: Chest wall: No tenderness. Abdominal: General: Abdomen is flat. Bowel sounds are normal. There is no distension. Palpations: Abdomen is soft. There is no mass. Tenderness: There is no abdominal tenderness. There is no guarding or rebound. Hernia: No hernia is present. Musculoskeletal: General: Tenderness present. No swelling, deformity or signs of injury. Right shoulder: Tenderness and bony tenderness present. No swelling, deformity, effusion, laceration or crepitus. Decreased range of motion. Cervical back: Neck supple. No rigidity or tenderness. Right lower leg: No edema. Left lower leg: No edema. Comments: + Neers test. +impingement sign; equivocal painful arc test Limited active and passive ROM on left shoulder Decreased external rotation and abduction on left shoulder Skin: General: Skin is warm and dry. Neurological: General: No focal deficit present. Mental Status: She is alert and oriented to person, place, and time. Mental status is at baseline. Psychiatric: Mood and Affect: Mood normal. Behavior: Behavior normal. Thought Content: Thought content normal. Judgment: Judgment normal. Assessment/Plan Letitia was seen today for wellness. Diagnoses and all orders for this visit: Well adult exam - Comprehensive metabolic panel; Future - Lipid profile; Future - Magnesium; Future - Magnesium - Lipid profile - Comprehensive metabolic panel Health maintenance discussed. Check CMP and lipids. Ex-cigarette smoker - CT low dose lung screening (Annual); Future She qualifies for a low-dose CT scan. She smoked a pack a day for about 47 years. She quit 4 years ago. Risks and benefits of the tests discussed. She would pursue further evaluation and treatment. Need for shingles vaccine - Zoster Subunit Recommended shingles vaccine. She agrees and will get the 1st dose here today. Chronic obstructive pulmonary disease, unspecified COPD type ([facility]-HCC) She has known COPD. She had not wanted treatment in the past with an inhaler but is open to starting 1. He will try Trelegy sample 100 mg 1 puff daily Pain in both lower extremities - Cancel: Vas art duplex lwr bilateral; Future - Cancel: Vas art doppler lwr limited single; Future - Vas art doppler lwr limited single; Future - Vas art duplex lwr bilateral; Future I am going to check for vascular disease with ABIs and arterial duplexes. Will check electrolytes. Continue with pickle juice an [id number] supplements for leg cramps. Ensure adequate hydration. Chronic bilateral low back pain without sciatica - X-ray spine lumbar 2 or 3 views; Future She is having chronic low back pain without any imaging thumb going to check an x-ray of her lumbarspine. Consider pain management, physical therapy. Can try [id number] analgesics Acute pain of left shoulder - X-ray shoulder left minimum 2 views; Future Symptoms seem to be consistent with impingement syndrome possibly rotator cuff injury. Try shoulderexercises. Consider cortisone injections, physical therapy. Check x-ray of left shoulder We will recheck in 1 year but she can come back sooner for further management of her shoulder and back pain. Bruno Serrato, MS3 [facility] [employer] documented in this encounter Plan of Treatment Scheduled Orders Name Type Priority Associated Diagnoses Orde r Schedule CT low dose lung screening (Annual) Imaging Routine Ex-cigarette smoker Expected: 01/19/2025, Expires: 01/19/2026 Vas art doppler lwr limited single Vascular Ultrasound Routine Pain in both lower extremities Expected: 01/19/2025, Expires: 01/19/2026 Vas art duplex lwr bilateral Vascular Ultrasound Routine Pain in both lower extremities Expected: 01/19/2025, Expires: 01/19/2026 documented as of this encounter Procedures Procedure Name Priority Date/Time Associated Diagnosis Comments MAGNESIUM Routine 01/19/2025 4:26 PM EDT Well adult exam LIPID PROFILE Routine 01/19/2025 4:26 PM EDT Well adult exam COMPREHENSIVE METABOLIC PANEL Routine 01/19/2025 4:26 PM EDT Well adult exam documented in this encounter Results * X-ray shoulder left minimum 2 views (01/27/2025 11:04 AM EDT) Anatomical Region Laterality Modality MSK, Upper Extremities, Shoulder Left Computed Radiography us Rohith Archer DO IM DIAGNOSTIC IMAGING ORDER [place] Final Result * X-ray spine lumbar 2 or 3 views (01/27/2025 11:02 AM EDT) Anatomical Region Laterality Modality MSK, Neuro, Spine, L-spine N/A Compu earl Radiography us Rohith Archer DO IMG DIAGNOSTIC IMAGING ORDER [place] Final Result * Magnesium (01/19/2025 4:26 PM EDT) MAGNESIUM 2.1 1.8 - 2.6 mg/dL 01/19/2025 10:31 PM EDT [facility] Blood Venous blood / Unknown 01/19/2025 4:26 PM EDT 01/19/2025 4:27 PM EDT us Rohith Archer DO LAB BLOOD ORDERABLES Final R esult [facility] [address] [place] [address], [place] [phone] * (ABNORMAL) Lipid profile (01/19/2025 4:26 PM EDT) CHOLESTEROL 242(H) 150 - 200 mg/dL 01/19/2025 10:31 PM EDT [facility] TRIGLYCERIDE 138 27 - 150 mg/dL 01/19/2025 10:31 PM EDT [facility] HDL CHOLESTEROL 37(L) >39 mg/dL 10:31 PM EDT [facility] Comment: HDL <40 mg/dL - High Risk HDL > or = 40mg/dL- Desirable HDL >60 mg/dL - Negative Risk LDL (CALC) 177(H) <130 mg/dL 01/19/2025 10:31 PM EDT [facility] Comment: LDL <100 mg/dL - Desirable LDL >160 mg/dL - High Risk CHOLESTEROL:HDL 6.5(H) 1.0 - 5.0 10:31 PM EDT [facility] VERY LOW LIPOPROTEIN 28 0 - 30 mg/dL 01/19/2025 10:31 PM EDT [facility] Blood Venous blood / Unknown 01/19/2025 4:26 PM EDT 01/19/2025 4:27 PM EDT us Rohith Archer DO LAB BLOOD ORDERABLES Final R esult [facility] [address] [place] [address], [place] [phone] * Comprehensive metabolic panel (01/19/2025 4:26 PM EDT) SODIUM 141 134 - 146 mmol/L 01/19/2025 10:31 PM EDT [facility] POTASSIUM 3.9 3.5 - 5.0 mmol/L 01/19/2025 10:31 PM EDT [facility] CHLORIDE 102 98 - 109 mmol/L 01/19/2025 10:31 PM EDT [facility] CARBON DIOXIDE 28 22 - 32 mmol/L 01/19/2025 10:31 PM EDT [facility] ANION GAP 11 5 - 15 mmol/L 01/19/2025 10:31 PM EDT [facility] BLOOD UREA NITROGEN 15 5 - 27 mg/dL 01/19/2025 10:31 PM EDT [facility] CREATININE 0.68 0.40 - 1.00 mg/dL 01/19/2025 10:31 PM EDT [facility] Comment:METHOD TRACEABLE TO IDMS STANDARD GLUCOSE 99 65 - 99 mg/dL 01/19/2025 10:31 PM EDT [facility] CALCIUM 9.6 8.5 - 10.5 mg/dL 01/19/2025 10:31 PM EDT [facility] TOTAL PROTEIN 7.2 6.0 - 8.0 g/dL 01/19/2025 10:31 PM EDT [facility] ALBUMIN 4.5 3.2 - 5.3 g/dL 01/19/2025 10:31 PM EDT [facility] ALKALINE PHOSPHATASE 88 39 - 130 U/L 01/19/2025 10:31 PM EDT [facility] AST 20 <=41 U/L 01/19/2025 10:31 PM EDT [facility] ALT 15 <=31 U/L 01/19/2025 10:31 PM EDT [facility] BILIRUBIN,TOTAL 0.5 0.3 - 1.2 mg/dL 01/19/2025 10:31 PM EDT [facility] EGFR Non-Race Dependent >90 >=60 ml/min/1.7 3sq.m 01/19/2025 10:31 PM EDT [facility] Comment: Reported eGFR is based on the CKD-EPI 2020 equation that does not use a race coefficient. Blood Venous blood / Unknown 01/19/2025 4:26 PM EDT 01/19/2025 4:27 PM EDT us Rohith Archer DO LAB BLOOD ORDERABLES Final R esult [facility] [address] [place] [address], [place] [phone] documented in this encounter Visit Diagnoses Diagnosis Well adult exam- Primary Routine general medical examination at a health care facility Chronic obstructive pulmonary disease, unspecified COPD type (CMS-HCC) Pain in both lower extremities Chronic bilateral low back pain without sciatica Acute pain of left shoulder Ex-cigarette smoker Personal history of tobacco use, presenting hazards to health Need for shingles vaccine Need for prophylactic vaccination and inoculation against varicella documented in this encounter Additional Health Concerns Assessment Noted Time PHQ-9 Depression Total Score: 0 01/20/20 25 3:18 PM EDT documented as of this encounter Care Teams Bearing Ring Assembler Relationship Specialty Start Date End Date Rohith Archer DO [address] [place] [address] PCP - General Family Medicine 06/02/22 documented as of this encounter
--- OUTSIDE RECORDS SUMMARY | 2025-01-27 14:50 | XMS_ITS | Encounter Summary ---
Author Organization [employer] Address [id number] [address] [place] [address] Care Team Providers Care Cream Ripener Name Role Phone Rohith Archer DO Primary Care Provider [phone] Encounter Details Date Type Department Care Team (Late st Contact Info) Description 08/04/2023 Telephone [facility] [address] [place] [address] Gildardo, Ellie, CAFE AIDE Social History Tobacco Use Types Packs/Day Years [...] often do you attend chur ch or presybeterian services? Never 08/25/2022 Do you belong to [...] Answer Date Recorded Total Score 0 07/31/2023 [facility] - Occupational Stress Questionnaire Answer Date [...] Recorded Do you need help finding a [facility] career center and/or a training program? [...] EDT Called pt xrays were done at [facility] of the left shoulder * Telephone Encounter - Nam Salinas DO - 08/04/2023 10:17 AM EDT Message noted. Please contact [facility] to send over the reports of the x-rays * Telephone Encounter - Ellie Ewing CMA - 08/04/2023 10:17 AM EDT I called [facility] left vm to call back pt had also called to tell them to send them over * Telephone Encounter - Ellie Ewing CMA - 08/04/2023 10:17 AM EDT The results are in her media folder there were received today documented in this encounter Plan of Treatment Not on file documented as of this encounter Visit Diagnoses Not on filedocumented in this encounter Additional Health Concerns Assessment Noted Time PHQ-9 Depression Total Score: 0 07/31/19 10:54 AM EST documented as of this encounter Care Teams Cream Ripener Relationship Specialty Start Date End Date Rohith Archer DO [address] [facility], [place] [address] PCP - General Family Medicine 06/02/22 documented as of this encounter
--- OUTSIDE RECORDS SUMMARY | 2025-01-27 14:50 | XMS_ITS | Encounter Summary ---
Author Organization [employer] [facility] tem Address [id number] [address] [place] [address] Care Team Providers Care Junk Dealer Name Role Phone Rohith Archer DO Primary Care Provider [phone] Encounter Details Date Type Department Care Team (Late st Contact Info) Description 08/01/2022 Telephone [facility] - Family Medicine [address] [place] [address] Cami Phillip CMA Social History Tobacco Use [...] on filedocumented in this encounter Care Teams Junk Dealer Relationship Specialty Start Date End Date Rohith Archer DO [address], [facility] [address] PCP - General Family Medicine 06/02/22 documented as of this encounter
--- OUTSIDE RECORDS SUMMARY | 2025-01-27 14:50 | XMS_ITS | Encounter Summary ---
Author Organization [facility] tem Address [facility] [place]-[id number] [address] [place] [address] Care Team Providers Care Electronic Musical Instrument Repairer Name Role Phone Rohith Archer DO Primary Care Provider +1- [phone] Encounter Details Date Type Department Care Team (Late st Contact Info) Description 08/07/2023 Telephone [facility] - Family Medicine [address] [place] [address] Rohith Archer DO [address], [place] [address] Social History Tobacco Use Types Packs/Day Years [...] Answer Date Recorded Total Score 0 07/31/2023 [facility] of Occupat ional Health - Occupational [...] Recorded Do you need help finding a [facility] career center and/or a training program? [...] get and because they were sent over [place] to the patient. She said gather all [...] documented as of this encounter Care Teams Electronic Musical Instrument Repairer Relationship Specialty Start Date End Date Rohith Archer DO [address], [place] [address] PCP - General Family Medicine 06/02/22 documented as of this encounter
--- OUTSIDE RECORDS SUMMARY | 2025-01-27 14:50 | XMS_ITS | Encounter Summary ---
Author Organization [employer] Sys tem Address [facility] [place][id number] [address] [place] [address] Care Team Providers Care Sodium Methylate Operator Name Role Phone GianniRohith Mario KAPOOR Primary Care Provider +1- [phone] Encounter Details Date Type Department Care Team (Late st Contact Info) Description 07/06/2023 Telephone [facility] - Family Medicine [address] [place] [address] Cami Phillip CMA Social History Tobacco Use [...] often do you attend chur ch or islam services? Never 08/25/2022 Do you belong to [...] Answer Date Recorded Total Score 0 06/15/2023 [facility] - Occupational Stress Questionnaire Answer Date Recorded [...] Recorded Do you need help finding a [facility] and/or a [...] documented as of this encounter Care Teams Sodium Methylate Operator Relationship Specialty Start Date End Date Rohith Archer DO [address] [place] [address] PCP - General Family Medicine 06/02/22 documented as of this encounter
--- OUTSIDE RECORDS SUMMARY | 2025-01-27 14:50 | XMS_ITS | Encounter Summary ---
Author Organization [employer] [facility] tem Address [facility]-[id number] [address] [place] [address] Care Team Providers Care Gallery Host Name Role Phone Rohith Archer DO Primary Care Provider [phone]- [phone] Encounter Details Date Type Department Care Team (Late st Contact Info) Description 08/19/2022 [facility]phone [facility] [address] [place] [address] Jocelyn Birch CMA Social History Tobacco Use [...] upset. Said she fasted and went to [facility] for her labs, and they had no order there. She was also late for work, due to the confusion. I allowed pt to know she can fast 4 hours prior to her appointment and she will get drawn when she is here. * Telephone Encounter - Rohith Archer DO - 08/19/2022 9:27 AM EDT The message was for [facility], no pola documented in this encounter Plan of Treatment Not on file documented as of this encounter Visit Diagnoses Not on filedocumented in this encounter Care Teams Gallery Host Relationship Specialty Start Date End Date Rohith Archer DO [address], [facility] [place] [address] PCP - General Family Medicine 06/02/22 documented as of this encounter
--- OUTSIDE RECORDS SUMMARY | 2025-01-27 14:50 | XMS_ITS | Encounter Summary ---
Author Organization [employer] tem Address [facility] [id number] [address] [place] [address] Care Team Providers Care Furnace Mechanic Helper Name Role Phone GianniRohith Mario KAPOOR Primary Care Provider Encounter Details Date Type Department Care Team (Late st Contact Info) Description 06/16/2023 Orders Only [facility] Internal Medicine - Family Medicine [address] [place] [address] Anais Muñoz, OXYACETYLENE CUTTER-TELECOM FIELD TECHNICIAN [address] [facility] [address] [address] Acute chest wall pain Social History Tobacco [...] often do you attend chur ch or cheondoism services? Never 08/25/2022 Do you belong to any clubs o r organizations such as nondenominational groups, unions, fraternal or athletic groups, or [...] Answer Date Recorded Total Score 0 06/15/2023 [facility] of Occupat ional Health - [...] Recorded Do you need help finding a [facility] career center and/or a training [...] as of this encounter Plan of Treatment Not on file documented as of this encounter Procedures Procedure Name Priority Date/Time Associated Diagnosis Comments XR RIBS LT 3 VWS W PA CHEST Routine 06/15/2023 Acute chest wall pain documented in this encounter Results * X-ray ribs left 3 views with pa chest (06/15/2023) Anatomical Region Laterality Modality MSK, Chest Left Computed Radiogr aphy Anais Muñoz OXYACETYLENE CUTTER-TELECOM FIELD TECHNICIAN IMG DIAGNOSTIC IMAGING DEA ZAIDI Final Result documented in this encounter Visit Diagnoses Diagnosis Acute chest wall pain documented in this encounter Additional Health Concerns Assessment Noted Time PHQ-9 Depression Total Score: 0 06/15/19 24 3:31 PM EST documented as of this encounter Care Teams Furnace Mechanic Helper Relationship Specialty Start Date End Date Rohith Archer DO [address] [facility], [place] [address] PCP - General Family Medicine 06/02/22 documented as of this encounter
--- OUTSIDE RECORDS SUMMARY | 2025-01-27 14:50 | XMS_ITS | Encounter Summary ---
Author Organization [employer] [facility] tem Address [facility] [place][id number] [address] [place] [address] Care Team Providers Care Extractor Plant Operator Name Role Phone Rohith Archer DO Primary Care Provider [phone]- [phone] Encounter Details Date Type Department Care Team (Late st Contact Info) Description 01/22/2023 Orders Only [facility] - Family Medicine [address] [place] [address] Rohith Archer DO [address], [place] [address] Social History Tobacco Use Types Packs/Day Years [...] any clubs o r organizations such as denominational groups, unions, fraternal or athletic groups, or [...] Answer Date Recorded Total Score 0 12/08/2022 [facility] of Occupat ional Health - [...] Recorded Do you need help finding a [facility] career center and/or a training program? [...] documented as of this encounter Care Teams Extractor Plant Operator Relationship Specialty Start Date End Date Rohith Archer DO [address], [place] [address] PCP - General Family Medicine 06/02/22 documented as of this encounter
--- OUTSIDE RECORDS SUMMARY | 2025-01-27 14:50 | XMS_ITS | Encounter Summary ---
Author Organization [employer] [facility] tem Address [facility][id number] [address] [place] [address] Care Team Providers Care Slitting Machine Operator Name Role Phone Rohith Archer DO Primary Care Provider +1- [phone] Encounter Details Date Type Department Care Team (Late st Contact Info) Description 12/26/2024 Results Follow-Up [facility] Internal Medicine - Family Medicine [address] [place] [address] Rohith Archer DO [address], [place] [address] [facility]MO[facility]AP[facility] Social History Tobacco Use Types Packs/Day Years Used Date Smoking Tobacco: Former Cigarettes 1 47 0 11/17/1973 - 11/28/2020 Smokeless Tobacco: Never Alcohol Use Standard Drinks/Week Comments Never 0 (1 standard drink = 0.6 oz pur e alcohol) [facility] Utilities Answer Date Recorded In the past 12 months has [employer], gas, oil, or water [employer] threatened to shut off services in your [...] week 08/25/2022 How often do you attend [facility] or yarsani services? Never 08/25/2022 Do you belong to any clubs o r organizations such as baptist groups, unions, fraternal or athletic groups, or [...] Answer Date Recorded Total Score 0 02/22/2024 [facility] of Occupat ional Health - Occupational Stress [...] documented as of this encounter Care Teams Slitting Machine Operator Relationship Specialty Start Date End Date Rohith Archer DO [address], [place] [address] PCP - General Family Medicine 06/02/22 documented as of this encounter
--- OUTSIDE RECORDS SUMMARY | 2025-01-27 14:50 | XMS_ITS | Encounter Summary ---
Author Organization [employer] Sys tem Address [facility] [place][id number] [address] [place] [address] Care Team Providers Care Drafter Automotive Design Layout Name Role Phone JulioRohith gramajo Mario KAPOOR Primary Care Provider Encounter Details Date Type Department Care Team (Late st Contact Info) Description 10/08/2023 Orders Only [facility] - Family Medicine [address] [place] [address] Cami Phillip CMA Encounter for screening mammogram for malignant neoplasm of breast; Ex-cigarette smoker Social History Tobacco Use Types Packs/Day Years Used Date Smoking Tobacco: Former Cigarettes 1 47 0 11/17/1973 - 11/28/2020 Smokeless Tobacco: Never Alcohol Use Standard Drinks/Week Comments Never 0 (1 standard drink = 0.6 oz pur e alcohol) [facility] Utilities Answer Date Recorded In the past 12 months has [employer], gas, oil, or water [employer] threatened to shut off services in your [...] often do you attend chur ch or mandaen services? Never 08/25/2022 Do you belong to [...] Answer Date Recorded Total Score 0 09/01/2023 [facility] of Occupat ional Health - Occupational [...] Recorded Do you need help finding a [facility] career center and/or a training [...] Chest, Body Covera C omputed Tomography 10/06/2023 Rohith Archer DO [facility] ORDERABLES Final Resu lt * Mammography screening bilateral with CAD (10/06/2023) Anatomical Region Laterality Modality Breast Bilateral Mammography 10/06/2023 Rohith Archer DO IMG MAMMOGRAPHY ORDERABLES F inal Result documented in this encounter Visit Diagnoses Diagnosis Encounter for screening mammogram for malignant neoplasm of breast Ex-cigarette smoker Personal history of tobacco use, presenting hazards to health documented in this encounter Additional Health Concerns Assessment Noted Time PHQ-9 Depression Total Score: 0 09/01/19 24 3:18 PM EDT documented as of this encounter Care Teams Drafter Automotive Design Layout Relationship Specialty Start Date End Date Rohith Archer DO [address], [place] [address] PCP - General Family Medicine 06/02/22 documented as of this encounter
--- OUTSIDE RECORDS SUMMARY | 2025-01-27 14:50 | XMS_ITS | Encounter Summary ---
Author Organization [email or web address] Sys tem Address [facility] [id number] [address] [place] [address] Care Team Providers Care Customer Service Analyst Name Role Phone GianniRohith Mario KAPOOR Primary Care Provider +1 [phone] Encounter Details Date Type Department Care Team (Late st Contact Info) Description 07/28/2023 Telephone [facility] - Family Medicine [address] [place] [address] Cami Phillip CMA Social History Tobacco Use [...] any clubs o r organizations such as lutheran groups, unions, fraternal or athletic groups, or [...] Answer Date Recorded Total Score 0 07/31/2023 [facility] - Occupational Stress Questionnaire Answer [...] Recorded Do you need help finding a [facility] and/or a training [...] documented as of this encounter Care Teams Customer Service Analyst Relationship Specialty Start Date End Date Rohith Archer DO [address] [facility], [place] [address] PCP - General Family Medicine 06/02/22 documented as of this encounter
--- OUTSIDE RECORDS SUMMARY | 2025-01-27 14:50 | XMS_ITS | Encounter Summary ---
Author Organization [employer] Sys tem Address [facility] [place]-[id number] [address] [place] [address] Care Team Providers Care Ground Water Technician Name Role Phone Rohith Archer DO Primary Care Provider +1- [phone] Reason for Visit * Reason Comments Med Refill Encounter Details Date Type Department Care Team (Late st Contact Info) Description 06/22/2022 Refill [facility] - Family Medicine [address] [place] [address] Rohith Archer DO [address] [place] [address] Mixed hyperlipidemia Social History Tobacco Use Types [...] hyperlipidemia documented in this encounter Care Teams Ground Water Technician Relationship Specialty Start Date End Date Rohith Archer DO [address] [place] [address] PCP - General Family Medicine 06/02/22 documented as of this encounter
--- OUTSIDE RECORDS SUMMARY | 2025-01-27 14:50 | XMS_ITS | Encounter Summary ---
Author Organization [employer] [facility] tem Address [facility] [id number] [address] [place] [address] Care Team Providers Care Mask Design Engineer Name Role Phone Rohith Archer DO Primary Care Provider +1- [phone] Encounter Details Date Type Department Care Team (Late st Contact Info) Description 02/25/2024 Orders Only [facility] Medicine - Family Medicine [address] [place] [address] Rohith Archer DO [address], [place] [address] Social History Tobacco Use Types Packs/Day Years Used Date Smoking Tobacco: Former Cigarettes 1 47 0 11/17/1973 - 11/28/2020 Smokeless Tobacco: Never Alcohol Use Standard Drinks/Week Comments Never 0 (1 standard drink = 0.6 oz pur e alcohol) [facility] Utilities Answer Date Recorded In the past 12 months has [employer], gas, oil, or water [employer] threatened to shut off services in your [...] week 08/25/2022 How often do you attend [facility] or sikh services? Never 08/25/2022 Do you belong to any clubs o r organizations such as christian groups, unions, fraternal or athletic groups, or [...] Date Recorded Total Score 0 02/22/2024 [facility] of Occupat ional Health - [...] documented as of this encounter Care Teams Mask Design Engineer Relationship Specialty Start Date End Date Rohith Archer DO [address], [place] [address] PCP - General Family Medicine 06/02/22 documented as of this encounter"
--- OUTSIDE RECORDS SUMMARY | 2025-01-27 14:50 | XMS_ITS | Encounter Summary ---
Author Organization [facility] tem Address [id number]-[id number] [address] [place] [address] Care Team Providers Care Hair Clipper Power Name Role Phone Rohith Archer DO Primary Care Provider +1- [phone] Encounter Details Date Type Department Care Team (Late st Contact Info) Description 01/23/2025 Results Follow-Up [facility] Internal Medicine - Family Medicine [address] [place] [address] Rohith Archer DO [address], [place] [address] Magnesium, Lipid profile, Comprehensive metabolic panel, Additional followed-up results: 2 Social History Tobacco Use Types Packs/Day Years Used Date Smoking Tobacco: Former Cigarettes 1 47 0 11/17/1973 - 11/28/2020 Smokeless Tobacco: Never Alcohol Use Standard Drinks/Week Comments Never 0 (1 standard drink = 0.6 oz pur e alcohol) [facility] Utilities Answer Date Recorded In the past 12 months has [employer] electric, gas, oil, or water company threatened [...] week 08/25/2022 How often do you attend [facility] or adventism services? Never 08/25/2022 Do you belong to any clubs o r organizations such as religion groups, unions, fraternal or athletic groups, or [...] Answer Date Recorded Total Score 0 01/19/2025 [facility] of Occupat ional Health - Occupational [...] Recorded Do you need help finding a [facility] career center and/or a training [...] documented as of this encounter Care Teams Hair Clipper Power Relationship Specialty Start Date End Date Rohith Archer DO [address] [facility] [place] [address] PCP - General Family Medicine 06/02/22 documented as of this encounter
--- OUTSIDE RECORDS SUMMARY | 2025-01-27 14:50 | XMS_ITS | Encounter Summary ---
Author Organization [employer] tem Address [facility] [id number] [address] [place] [address] Care Team Providers Care Cleaning Maid Name Role Phone GianniRohith Mario KAPOOR Primary Care Provider +1- [phone] Encounter Details Date Type Department Care Team (Late st Contact Info) Description 06/19/2023 Telephone [facility] Medicine - Family Medicine [address] [place] [address] Cami Phillip CMA Social History Tobacco Use [...] Answer Date Recorded Total Score 0 06/15/2023 [facility] - Occupational Stress Questionnaire Answer Date [...] you need help finding a [facility] career center and/or a training [...] documented as of this encounter Care Teams Cleaning Maid Relationship Specialty Start Date End Date Rohith Archer DO [address], [facility] [place] [address] PCP - General Family Medicine 06/02/22 documented as of this encounter
--- OUTSIDE RECORDS SUMMARY | 2025-01-27 14:50 | XMS_ITS | Encounter Summary ---
Author Organization [employer] Sys tem Address [facility] [place]-[id number] [address] [place] [address] Care Team Providers Care Hand Salter Name Role Phone GianniRohith Mario KAPOOR Primary Care Provider Encounter Details Date Type Department Care Team (Late st Contact Info) Description 07/28/2023 Orders Only [facility] Medicine - Family Medicine [address] [place] [address] Anais Muñoz, POWDER COATER-SANE RN [address] [place] [address] Social History Tobacco Use Types Packs/Day Years [...] often do you attend chur ch or orthodox services? Never 08/25/2022 Do you belong to any clubs o r organizations such as latter-day groups, unions, fraternal or athletic groups, or [...] Answer Date Recorded Total Score 0 07/31/2023 [facility] of Occupat ional Health [...] documented as of this encounter Care Teams Hand Salter Relationship Specialty Start Date End Date Rohith Archer DO [address] [facility], [place] [address] PCP - General Family Medicine 06/02/22 documented as of this encounter
--- OUTSIDE RECORDS SUMMARY | 2025-01-27 14:50 | XMS_ITS | Clinical Summary ---
Author Organization [facility] Healthcare Address [address] [facility] [place] [address] Care Team Providers Care Chief Relay Tester Name Role Phone Unavailable Primary Care Provider [...]
--- OUTSIDE RECORDS SUMMARY | 2025-01-27 14:50 | XMS_ITS | Encounter Summary ---
Author Organization [facility] [employer] tem Address [facility] [place][id number] [address] [place] [address] Care Team Providers Care Freight Sorter Name Role Phone Rohith Archer DO Primary Care Provider +1- [phone] Encounter Details Date Type Department Care Team (Late st Contact Info) Description 08/05/2022 Orders Only [facility] - Family Medicine [address] [place] [address] Rohith Archer DO [address], [place] [address] Social History Tobacco Use Types Packs/Day Years [...] on filedocumented in this encounter Care Teams Freight Sorter Relationship Specialty Start Date End Date Rohith Archer DO [address], [place] [address] PCP - General Family Medicine 06/02/22 documented as of this encounter
--- OUTSIDE RECORDS SUMMARY | 2025-01-27 14:50 | XMS_ITS | Encounter Summary ---
Author Organization [employer] tem Address [id number] [address] [place] [address] Care Team Providers Care Utility Repairer Name Role Phone GianniRohith Mario KAPOOR Primary Care Provider Encounter Details Date Type Department Care Team (Late st Contact Info) Description 06/22/2023 Orders Only [facility] - Family Medicine [address] [address] Anais Muñoz, COMPONENT OVERHAUL OPERATOR-DIETARY SERVICES MANAGER [address] [place] [address] Social History Tobacco Use Types Packs/Day Years [...] often do you attend chur ch or temple services? Never 08/25/2022 Do you belong to any clubs o r organizations such as islam groups, unions, fraternal or athletic groups, or [...] Answer Date Recorded Total Score 0 06/15/2023 [facility] of Occupat ional Health - Occupational [...] Recorded Do you need help finding a [facility] career center and/or a training program? [...] documented as of this encounter Care Teams Utility Repairer Relationship Specialty Start Date End Date Rohith Archer DO [address] [facility], [place] [address] PCP - General Family Medicine 06/02/22 documented as of this encounter
--- OUTSIDE RECORDS SUMMARY | 2025-01-27 14:50 | XMS_ITS | Encounter Summary ---
Author Organization [employer] Sys tem Address [id number] [address] [place] [address] Care Team Providers Care Powerhouse Laborer Name Role Phone JulioRohith gramajo Mario KAPOOR Primary Care Provider [phone] Encounter Details Date Type Department Care Team (Late st Contact Info) Description 01/27/2025 Orders Only [facility] Medicine - Family Medicine [address] [place] [address] Cami Phillip CMA Chronic bilateral low back pain without sciatica; Acute pain of left shoulder Social History Tobacco Use Types Packs/Day Years Used Date Smoking Tobacco: Former Cigarettes 1 47 0 11/17/1973 - 11/28/2020 Smokeless Tobacco: Never Alcohol Use Standard Drinks/Week Comments Never 0 (1 standard drink = 0.6 oz pur e alcohol) [facility] Utilities Answer Date Recorded In the past 12 months has [employer] electric, gas, oil, or water company threatened [...] often do you attend chur ch or buddhism services? Never 08/25/2022 Do you belong to any clubs o r organizations such as anabaptism groups, unions, fraternal or athletic groups, or [...] Answer Date Recorded Total Score 0 01/19/2025 [facility] of Occupat ional Health - Occupational [...] Do you need help finding a [facility] career center and/or a training program? No [...] XR SHOULDER LT MIN 2 VWS Routine 01/27/2025 11:04 AM EDT Acute pain of left shoulder XR SPINE LUMBAR 2 OR 3 VWS Routine 01/27/2025 11:02 AM EDT Chronic bilateral low back pain without sciatica documented in this encounter Results * X-ray shoulder left minimum 2 views (01/27/2025 11:04 AM EDT) Anatomical Region Laterality Modality MSK, Upper Extremities, Shoulder Left Computed Radiography Rohith Archer DO [facility] [place] Final Result * X-ray spine lumbar 2 or 3 views (01/27/2025 11:02 AM EDT) Anatomical Region Laterality Modality MSK, Neuro, Spine, L-spine N/A Compu earl Radiography Rohith Archer DO [facility] [place] Final Result documented in this encounter Visit Diagnoses Diagnosis Chronic bilateral low back pain without sciatica Acute pain of left shoulder documented in this encounter Additional Health Concerns Assessment Noted Time PHQ-9 Depression Total Score: 0 01/20/20 25 3:18 PM EDT documented as of this encounter Care Teams Powerhouse Laborer Relationship Specialty Start Date End Date Rohith Archer DO [address] [facility], [place] [address] PCP - General Family Medicine 06/02/22 documented as of this encounter
--- OUTSIDE RECORDS SUMMARY | 2025-01-27 14:50 | XMS_ITS | Encounter Summary ---
Author Organization [employer] [facility] tem Address [place]-[id number] [address] [place] [address] Care Team Providers Care Spiral Tube Winder Name Role Phone Rohith Archer DO Primary Care Provider [phone] Encounter Details Date Type Department Care Team (Late st Contact Info) Description 08/05/2023 Orders Only [facility] Internal Medicine - Family Medicine [address] [place] [address] Rohith Archer DO [address], [place] [address] Acute pain of left shoulder Social History [...] often do you attend chur ch or baptism services? Never 08/25/2022 Do you belong to [...] Answer Date Recorded Total Score 0 07/31/2023 [facility] of Occupat ional Health - Occupational Stress [...] Do you need help finding a [facility] career center and/or a training program? [...] documented as of this encounter Care Teams Spiral Tube Winder Relationship Specialty Start Date End Date Rohith Archer DO [address] [facility], [place] [address] PCP - General Family Medicine 06/02/22 documented as of this encounter
--- OUTSIDE RECORDS SUMMARY | 2025-01-27 14:50 | XMS_ITS | Encounter Summary ---
Author Organization [facility] [employer] [facility] tem Address [facility]-[id number] [address] [place] [address] Care Team Providers Care Manufacturing Area Manager Name Role Phone Rohith Archer DO Primary Care Provider Encounter Details Date Type Department Care Team (Late st Contact Info) Description 08/19/2022 Orders Only [facility] - Family Medicine [address] [place] [address] Rohith Archer DO [email or web address] [facility] [place] [address] Social History Tobacco Use Types Packs/Day Years [...] on filedocumented in this encounter Care Teams Manufacturing Area Manager Relationship Specialty Start Date End Date Rohith Archer DO [email or web address] [facility] [place] [place] [address] PCP - General Family Medicine 06/02/22 documented as of this encounter
--- OUTSIDE RECORDS SUMMARY | 2025-01-27 14:50 | XMS_ITS | Encounter Summary ---
Author Organization [employer] Sys tem Address [facility]-[id number] [address] [place] [address] Care Team Providers Care Candle Cutter Name Role Phone GianniRohith Mario KAPOOR Primary Care Provider [phone] Encounter Details Date Type Department Care Team (Late st Contact Info) Description 06/16/2023 Telephone [facility] Medicine - Family Medicine [address] [place] [address] Gino Wang CMA Social History Tobacco Use [...] Answer Date Recorded Total Score 0 06/15/2023 [facility] - Occupational Stress Questionnaire Answer Date Recorded [...] Recorded Do you need help finding a [facility] career center and/or a training [...] done 06/15. She had it done at [facility] * Telephone Encounter - Rohith Archer DO [...] do stress tests with Dr Salinas at [facility], is that ok? documented in this encounter Plan of Treatment Not on file documented as of this encounter Visit Diagnoses Not on filedocumented in this encounter Additional Health Concerns Assessment Noted Time PHQ-9 Depression Total Score: 0 06/15/19 24 3:31 PM EST documented as of this encounter Care Teams Candle Cutter Relationship Specialty Start Date End Date Rohith Archer DO [address] [facility], [place] [address] PCP - General Family Medicine 06/02/22 documented as of this encounter
--- OUTSIDE RECORDS SUMMARY | 2025-01-27 14:50 | XMS_ITS | Encounter Summary ---
Author Organization [employer] Sys tem Address [facility]-[id number] [address] [place] [address] Care Team Providers Care Corpsman Name Role Phone GianniRohith Mario KAPOOR Primary Care Provider Encounter Details Date Type Department Care Team (Late st Contact Info) Description 03/04/2024 Orders Only [facility] - Family Medicine [address] [place] [address] Cami Phillip CMA Lung nodule, solitary Social History Tobacco Use Types Packs/Day Years Used Date Smoking Tobacco: Former Cigarettes 1 47 0 11/17/1973 - 11/28/2020 Smokeless Tobacco: Never Alcohol Use Standard Drinks/Week Comments Never 0 (1 standard drink = 0.6 oz pur e alcohol) [facility] Utilities Answer Date Recorded In the past 12 months has [employer] electric, gas, oil, or water company threatened [...] any clubs o r organizations such as mormonism groups, unions, fraternal or athletic groups, or [...] Answer Date Recorded Total Score 0 02/22/2024 [facility] [place] of Occupat ional Health - Occupational Stress [...] you need help finding a [facility] career center and/or a training program? [...] Comments CT CHEST WO CONT Routine 03/07/2024 3:2 1 PM EDT CREATININE, SERUM Routine 03/03/2024 Lung [...] Non Amer >60 MANUALLY TRANSCRIBED RESULTS 03/03/2024 us Rohith Archer DO LAB BLOOD ORDERABLES Final R esult MANUALLY TRANSCRIBED RESULTS documented in this encounter Visit Diagnoses Diagnosis Lung nodule, solitary documented in this encounter Additional Health Concerns Assessment Noted Time PHQ-9 Depression Total Score: 0 02/22/20 24 11:04 AM EDT documented as of this encounter Care Teams Corpsman Relationship Specialty Start Date End Date Rohith Archer DO [address] [facility] [facility], [place] [address] PCP - General Family Medicine 06/02/22 documented as of this encounter
--- OUTSIDE RECORDS SUMMARY | 2025-01-27 14:50 | XMS_ITS | Encounter Summary ---
Author Organization [employer] tem Address [facility]-[id number] [address] [place] [address] Care Team Providers Care Window Treatment Installer Name Role Phone JulioRohith gramajo Mario KAPOOR Primary Care Provider Encounter Details Date Type Department Care Team (Latest Contact Info) Description 01/19/2025 Travel Social History Tobacco Use Types Packs/Day Years Used Date Smoking Tobacco: Former Cigarettes 1 47 0 11/17/1973 - 11/28/2020 Smokeless Tobacco: Never Alcohol Use Standard Drinks/Week Comments Never 0 (1 standard drink = 0.6 oz pur e alcohol) [facility] Utilities Answer Date Recorded In the past 12 months has [employer] electric, gas, oil, or water company threatened [...] Answer Date Recorded Total Score 0 01/19/2025 [facility] - Occupational Stress Questionnaire Answer Date [...] Recorded Do you need help finding a [facility] career [facility] and/or a training program? [...] documented as of this encounter Care Teams Window Treatment Installer Relationship Specialty Start Date End Date Rohith Archer DO [address] [facility] [place] [address] PCP - General Family Medicine 06/02/22 documented as of this encounter
--- OUTSIDE RECORDS SUMMARY | 2025-01-27 14:51 | XMS_ITS | Encounter Summary ---
Author Organization [employer] Sys tem Address [facility]-[id number] [address] [place] [address] Care Team Providers Care Health Information Technician Name Role Phone GianniRohith Mario KAPOOR Primary Care Provider Encounter Details Date Type Department Care Team (Late st Contact Info) Description 12/17/2022 Orders Only [facility] - Family Medicine [address] [address] Cami Phillip CMA Colon cancer screening Social [...] Answer Date Recorded Total Score 0 12/08/2022 [facility] of Occupat ional Health - Occupational [...] documented as of this encounter Care Teams Health Information Technician Relationship Specialty Start Date End Date Rohith Archer DO [address] [facility], [place] [address] PCP - General Family Medicine 06/02/22 documented as of this encounter
--- OUTSIDE RECORDS SUMMARY | 2025-01-27 14:51 | XMS_ITS | Encounter Summary ---
Author Organization [employer] tem Address [facility][id number] [address] [place] [address] Care Team Providers Care Weatherization Technician Name Role Phone Rohith Archer DO Primary Care Provider Encounter Details Date Type Department Care Team (Late st Contact Info) Description 02/29/2024 Telephone [facility] Medicine - Family Medicine [address] [place] [address] Gildardo, Ellie, WINDOW SHADE CUTTER AND MOUNTER Social History Tobacco Use Types Packs/Day Years Used Date Smoking Tobacco: Former Cigarettes 1 47 0 11/17/1973 - 11/28/2020 Smokeless Tobacco: Never Alcohol Use Standard Drinks/Week Comments Never 0 (1 standard drink = 0.6 oz pur e alcohol) [facility] Utilities Answer Date Recorded In the past 12 months has [employer] electric, gas, oil, or water company threatened [...] any clubs o r organizations such as mandaen groups, unions, fraternal or athletic groups, or [...] Date Recorded Total Score 0 02/22/2024 [facility] of Occupat ional Health - Occupational Stress [...] you need help finding a [facility] career center and/or a [...] documented as of this encounter Care Teams Weatherization Technician Relationship Specialty Start Date End Date Rohith Archer DO [address] [facility] [place] [address] PCP - General Family Medicine 06/02/22 documented as of this encounter
--- OUTSIDE RECORDS SUMMARY | 2025-01-27 14:51 | XMS_ITS | Encounter Summary ---
Author Organization [employer] Sys tem Address [facility]-[id number] [address] [place] [address] Care Team Providers Care Corporate Giving Manager Name Role Phone GianniRohith Mario KAPOOR Primary Care Provider Encounter Details Date Type Department Care Team (Late st Contact Info) Description 12/22/2022 Telephone [facility] - Family Medicine [address] [place] [id number] Ruba Ortiz, CLIENT ADMINISTRATOR-MARINE GEAR KEEPER [address] [facility] [place] [address] Social History Tobacco Use Types Packs/Day Years [...] Answer Date Recorded Total Score 0 12/08/2022 [facility] of Occupat ional Health - Occupational [...] documented as of this encounter Care Teams Corporate Giving Manager Relationship Specialty Start Date End Date Rohith Archer DO [address] [facility] [place] [address] PCP - General Family Medicine 06/02/22 documented as of this encounter
--- OUTSIDE RECORDS SUMMARY | 2025-01-27 14:51 | XMS_ITS | Clinical Summary ---
Author Organization [employer] Address [facility]-[id number] [address] [place] [address] Care Team Providers Care Patch Finisher Name Role Phone Gianni Rohith Mario KAPOOR Primary Care Provider [phone] Allergies No known active allergies Medications polycarbophil (FIBER, CALCIUM POLYCARBOPHIL, ) 625 mg tablet Take 1 tablet (625 mg total) by mouth. 12/17/19 23 Active fluticasone-um eclidin-vilant er (TRELEGY ELLIPTA) 100-62.5-25 mcg blister with device Inhale 1 puff in the morning. 1 each 01/20/20 25 Active vit C,X-Dq-sgyrm-l utein-zeaxan (PRESERVISION AREDS-2) 250-90-40-1 mg capsule Taking,but [...] Encounters Date Type Department Care Team Description 01/27/2025 Orders Only [facility] Internal [facility] [address] [place] [address] Cami Phillip CMA Chronic bilateral low back pain without sciatica; Acute pain of left shoulder 01/23/2025 Results Follow-Up [facility] [address] [place] [address] Rohith Archer, Magnesium, Lipid profile, Comprehensive metabolic panel, Additional followed-up results: 2 01/19/2025 3:15 PM EDT Office Visit [facility] [address] [place] [address] Rohith Archer, Well adult exam (Primary Dx); Chronic obstructive pulmonary disease, unspecified COPD type (CMS-HCC); Pain in both lower extremities; Chronic bilateral low back pain without sciatica; Acute pain of left shoulder; Ex-cigarette smoker; Need for shingles vaccine 01/19/2025 Travel 12/26/2024 [facility] [address] [place] [address] Rohith Archer, HM MAMMOGRAPHY 12/26/[address] [facility] [address] [place] [address] Ref Prov, Not In System from Last [...] 0.6 oz pur e alcohol) [facility] Utilities Answer Date Recorded In [...] often do you attend chur ch or hindu services? Never 08/25/2022 Do you belong to any clubs o r organizations such as jehovah's witness groups, unions, fraternal or athletic groups, or [...] Answer Date Recorded Total Score 0 01/19/2025 [facility] [place] of Occupat ional Health - Occupational Stress [...] Recorded Do you need help finding a [facility] career center and/or a training [...] 01/19/2025 3:19 PM EDT Plan of Treatment Health Maintenance Due Date Last Done Comments [...] Chronic bilateral low back pain without sciatica COMPREHENSIVE METABOLIC PANEL Routine 01/19/2025 4:26 PM EDT Well adult exam LIPID PROFILE Routine 01/19/2025 4:26 PM EDT Well adult exam MAGNESIUM Routine 01/19/2025 4:26 PM EDT Well adult exam HM MAMMOGRAPHY Routine 12/15/2024 10:51 AM EDT HM COLONOSCOPY Routine 01/14/2023 11:28 AM EDT from Last 3 Months or Most Recently Relevant to Health Maintenance Results * X-ray shoulder left minimum 2 [...] - 2.6 mg/dL 01/19/2025 10:31 PM EDT [facility] Blood Venous blood / Unknown 01/19/2025 4:26 PM EDT 01/19/2025 4:27 PM EDT us Rohith Archer DO LAB BLOOD ORDERABLES Final R esult [facility] [address] [place] [address], * (ABNORMAL) Lipid profile (01/19/2025 4:26 PM EDT) CHOLESTEROL 242(H) 150 - 200 mg/dL 01/19/2025 10:31 PM EDT [facility] TRIGLYCERIDE 138 27 - 150 mg/dL 01/19/2025 10:31 PM EDT [facility] HDL CHOLESTEROL 37(L) >39 mg/dL 10:31 PM EDT [facility] Comment: HDL <40 mg/dL - High Risk HDL > or = 40mg/dL- Desirable HDL >60 mg/dL - Negative Risk LDL (CALC) 177(H) <130 mg/dL 01/19/2025 10:31 PM EDT [facility] Comment: LDL <100 mg/dL - Desirable LDL >160 mg/dL - High Risk CHOLESTEROL:HDL 6.5(H) 1.0 - 5.0 10:31 PM EDT [facility] VERY LOW LIPOPROTEIN 28 0 - 30 mg/dL 01/19/2025 10:31 PM EDT [facility] Blood Venous blood / Unknown 01/19/2025 4:26 PM EDT 01/19/2025 4:27 PM EDT Rohith Martin Gianni DO LAB BLOOD ORDERABLES Final R esult [facility] [address] [place] [address], [place] [phone] * Comprehensive metabolic panel (01/19/2025 4:26 PM EDT) SODIUM 141 134 - 146 mmol/L 01/19/2025 10:31 PM EDT [facility] POTASSIUM 3.9 3.5 - 5.0 mmol/L 01/19/2025 10:31 PM EDT [facility] CHLORIDE 102 98 - 109 mmol/L 01/19/2025 10:31 PM EDT [facility] CARBON DIOXIDE 28 22 - 32 mmol/L 01/19/2025 10:31 PM EDT [facility] ANION GAP 11 5 - 15 mmol/L 01/19/2025 10:31 PM EDT [facility] BLOOD UREA NITROGEN 15 5 - 27 mg/dL 01/19/2025 10:31 PM EDT [facility] CREATININE 0.68 0.40 - 1.00 mg/dL 01/19/2025 10:31 PM EDT [facility] Comment:METHOD TRACEABLE TO IDMS STANDARD GLUCOSE 99 65 - 99 mg/dL 01/19/2025 10:31 PM EDT [facility] CALCIUM 9.6 8.5 - 10.5 mg/dL 01/19/2025 10:31 PM EDT [facility] TOTAL PROTEIN 7.2 6.0 - 8.0 g/dL 01/19/2025 10:31 PM EDT [facility] ALBUMIN 4.5 3.2 - 5.3 g/dL 01/19/2025 10:31 PM EDT [facility] ALKALINE PHOSPHATASE 88 39 - 130 U/L 01/19/2025 10:31 PM EDT [facility] AST 20 <=41 U/L 01/19/2025 10:31 PM EDT [facility] ALT 15 <=31 U/L 01/19/2025 10:31 PM EDT [facility] BILIRUBIN,TOTAL 0.5 0.3 - 1.2 mg/dL 01/19/2025 10:31 PM EDT [facility] EGFR Non-Race Dependent >90 >=60 ml/min/1.7 3sq.m 01/19/2025 10:31 PM EDT [facility] Comment: Reported eGFR is based on the CKD-EPI 2020 equation that does not use a race coefficient. Blood Venous blood / Unknown 01/19/2025 4:26 PM EDT 01/19/2025 4:27 PM EDT us Rohith Archer DO LAB BLOOD ORDERABLES Final R esult Performing Organization Address City/[facility]/ZIP Co de Phone Number [facility] [address] [place] [address], [place] [phone] * MAMMOGRAPHY (12/15/2024 10:51 AM EDT) Anatomical Region Laterality Modality Other us Not In System Ref Prov HEALTH MAINTENANCE Final Result * HM COLONOSCOPY (01/14/2023 11:28 AM EDT) us Scanning Provider External HEALTH MAINTENANCE Fi nal Result Performing Organization Address City/[facility]/ZIP Co de Phone Number MANUALLY TRANSCRIBED RESULTS from Last 3 Months or Most Recently Relevant to Health Maintenance Insurance [employer] Care Teams Patch Finisher Relationship Specialty Start Date End Date Rohith Archer DO [address] [facility], [place] [address] PCP - General Family Medicine 06/02/22
--- OUTSIDE RECORDS SUMMARY | 2025-01-27 14:51 | XMS_ITS | Encounter Summary ---
Author Organization [employer] Sys tem Address [facility]-[id number] [address] [place] [address] Care Team Providers Care Quality Compliance Coordinator Name Role Phone Gianni Rohith Mario KAPOOR Primary Care Provider [phone] Encounter Details Date Type Department Care Team (Late st Contact Info) Description 03/04/2024 Telephone [facility] - Family Medicine [address] [place] [address] Gino Wang CMA Social History Tobacco Use Types Packs/Day Years Used Date Smoking Tobacco: Former Cigarettes 1 47 0 11/17/1973 - 11/28/2020 Smokeless Tobacco: Never Alcohol Use Standard Drinks/Week Comments Never 0 (1 standard drink = 0.6 oz pur e alcohol) [facility] Utilities Answer Date Recorded In the past 12 months has [employer] electric, gas, oil, or water company threatened [...] often do you attend chur ch or protestant services? Never 08/25/2022 Do you belong to any clubs o r organizations such as latter day groups, unions, fraternal or athletic groups, or [...] Answer Date Recorded Total Score 0 02/22/2024 [facility] of Occupat ional Health - Occupational [...] documented as of this encounter Care Teams Quality Compliance Coordinator Relationship Specialty Start Date End Date Rohith Archer DO [address], [place] [address] PCP - General Family Medicine 06/02/22 documented as of this encounter
--- OUTSIDE RECORDS SUMMARY | 2025-01-27 14:51 | XMS_ITS | Encounter Summary ---
Author Organization [employer] s tem Address [id number] [address] [place] [address] Care Team Providers Care Hat Forming Machine Feeder Name Role Phone GianniRohith Mario KAPOOR Primary Care Provider Encounter Details Date Type Department Care Team (Late st Contact Info) Description 03/07/2024 Telephone [facility] Internal Medicine - Family Medicine [address] [place] [address] Peggy Azul CMA Social History Tobacco Use Types Packs/Day Years Used Date Smoking Tobacco: Former Cigarettes 1 47 0 11/17/1973 - 11/28/2020 Smokeless Tobacco: Never Alcohol Use Standard Drinks/Week Comments Never 0 (1 standard drink = 0.6 oz pur e alcohol) [facility] Utilities Answer Date Recorded In the past 12 months has [employer] electric, gas, oil, or water company threatened [...] any clubs o r organizations such as hoahaoism groups, unions, fraternal or athletic groups, or [...] Answer Date Recorded Total Score 0 02/22/2024 [facility] Occup[facility] ional [facility] - Occupational [...] to the following: CT chest without contrast [[id number]] on 03/04/2024 I called pt and read result note. She verbally states she understands.Recheck in a year documented in this encounter Plan of Treatment Not on file documented as of this encounter Visit Diagnoses Not on filedocumented in this encounter Additional Health Concerns Assessment Noted Time PHQ-9 Depression Total Score: 0 02/22/20 11:04 AM EDT documented as of this encounter Care Teams Hat Forming Machine Feeder Relationship Specialty Start Date End Date Rohith Archer DO [address], [facility] [place] [address] PCP - General Family Medicine 06/02/22 documented as of this encounter
--- OUTSIDE RECORDS SUMMARY | 2025-01-27 14:51 | XMS_ITS | Encounter Summary ---
Author Organization [employer] Address [facility] [id number] [address] [place] [address] Care Team Providers Care Builder Beam Name Role Phone JulioRohith gramajo Mario KAPOOR Primary Care Provider [phone] Encounter Details Date Type Department Care Team (Late st Contact Info) Description 09/30/2022 Orders Only [facility] Internal Medicine - Family Medicine [address] [place] [address] Cami Phillip CMA Ex-cigarette smoker Social History [...] often do you attend chur ch or christian services? Never 08/25/2022 Do you belong to [...] Answer Date Recorded Total Score 0 08/25/2022 [facility] of Occupat ional Health - Occupational Stress [...] Time PHQ-9 Depression Total Score: 0 08/26/19 23 3:31 PM EDT documented as of this encounter Care Teams Builder Beam Relationship Specialty Start Date End Date Rohith Archer DO [address] [facility] [place] [address] PCP - General Family Medicine 06/02/22 documented as of this encounter
--- NOTE | 2025-01-27 14:52 | CT_ITS ---
The [address] [address] Patient Name: PETRONA GORDON MRN: [id number] date: 1960 Sex: F Assigned Patient Location: [place] Current Patient Location: [place] Accession/Order Number: [id number] Exam Date: 01/27/2025 15:42 Report Date: 01/27/2025 16:06 At the request of: RELL JEFFERSON Procedure: CT lung screening low-dose CT CHEST WITHOUT CONTRAST, LOW DOSE SCREENING: CLINICAL DATA: A 64-year old former smoker, smoking for 50 pack-years. COMPARISON: None TECHNIQUE: Noncontrast axial CT scan images of the chest were obtained under the low dose screening CT protocol. Coronal and sagittal reconstructed images were also submitted. FINDINGS: Mediastinum : Suboptimal evaluation due to low-dose technique. Thoracic aorta appears normal in caliber. Pulmonary trunk appears nondilated. No pericardial effusion. No lymphadenopathy. The esophagus is grossly unremarkable. Lungs: No focal consolidation, pneumothorax or pleural effusion. Trachea and distal airways appear patent. Emphysema. Diffuse bronchial wall thickening. Mild lung scarring. No suspicious noncalcified pulmonary nodule or mass. Upper abdomen: No acute findings. Bony thorax and chest wall: Soft tissues surrounding the chest wall demonstrate no acute findings. Osseous structures demonstrate degenerative change. CT/CT lung screening low-dose IMPRESSION: NO SUSPICIOUS PULMONARY NODULE OR MASS. LUNG - RADS Version 1.0 Assessment: Category 1, Negative (No nodules and definitely benign nodules). Management: Continue annual lung screening with LDCT in 12 months. Impression dictated by: Walter Harley Jr., D.O. 01/27/2025 4:06 PM Dictation Location: [place] [address] Electronically authenticated by: [id number] Y Date: 01/27/2025 16:06
--- OUTSIDE RECORDS SUMMARY | 2025-01-27 14:59 | XMS_ITS | CCD ---
Author Organization [facility] Inform ion [facility] Care Team Providers Care Heavy Equipment Rental Associate Name Role Phone Janice Rahman Unavailable DO Rohith Archer Primary Care Provider JETHRO Rahman Attending Provider Janice Rahman Attending Unavailable Janice Rahman Admitting Unavailable Rohith Archer Primary Care Unavailable FURLONG, DR ROHITH Martin Admitting Unavailable FURLONG, DR ROHITH Martin Attending Unavailable FURLONG, DR ROHITH Martin Consulting Unavailable FURLONG, DR ROHITH Martin Primary Care Unavailable [place], DR LOLIS Haider Consulting Unavailable FURLONG, DR [...] Eveline I Attending Unavailable [place] Rohith K[place]OOR [facility] Care Tramaine Ozuna MD, Eveline I Admitting Unavailable Sulma RODRÍGUEZ, J I Attending [facility] Rohith Leandro [facility] Tramaine Ozuna MD, J I Attending [facility] Tramaine Ozuna MD, J I Attending Unavailable Sulma RODRÍGUEZ, J I Attending [facility] Tramaine Ozuna MD, J I Attending [facility] Tramaine Ozuna MD, J I Attending [facility] Tramaine nava [facility] Tramaine Ozuna MD, J I Attending [facility] DO Rohith Mario Primary Care Provider [phone] [facility] Rohith KAPOOR Primary Care Provider ROHITH ARCHER Attending [facility] ROHITH ARCHER Referring [facility] JAYAKATHLEENROHITH Attending [facility]erring [facility] Mario [facility] Unavailable Allergies Allergy Classification Reported Allergen(s) Allergy Type Date of Onset Reaction(s) Facility (1 source) Unable to Assess Drug allergy (disorder) [facility] Repository (1 source) No Known Medication Allergies; Translations: [No Known Medication Allergies] Propensity to adverse reactions (disorder) [facility] Repository Medications Current Medications Medication Drug [...] Drug Class(es) Dates Sig (Normalized) Sig (Original) [id number] 200 actuat albuterol 0.09 mg/actuat metered dose [...] the morning. 02/22/2024 Discontinued (Therapy completed) vit C,N-Nn-yamxu-lutein -zeaxan (PRESERVISION AREDS-2) 250-90-40-1 mg capsule (3 sources) End: 01-19-2025 vit C,V-Oi-osdpw-lute in-zeaxan (PRESERVISION AREDS-2) 250-90-40-1 mg capsule Taking,but [...] 01-19-2025 Albumin [Mass/Vol] 4.5 g/dL Normal 3.2-5.3 [facility] Comment on above: Performed By: #### C MP #### [facility] ([facility]) [address] [place] [address] VIR ALP [Catalytic activity/Vol] 88 U/L Normal 39-130 [facility] Comment on above: Performed By: #### C MP #### [facility] ([facility]) [address] [place] [address] VIR ALT [Catalytic activity/Vol] 15 U/L Normal <=31 [facility] Comment on above: Performed By: #### C MP #### [facility] ([facility]) [address] [place] [address] VIR Anion gap [Moles/Vol] 11 mmol/L Normal 5-15 [facility] Comment on above: Performed By: #### C MP #### [facility] ([facility]) [address] [place] [address] VIR AST [Catalytic activity/Vol] 20 U/L Normal <=41 [facility] Comment on above: Performed By: #### C MP #### [facility] ([facility]) [address] [place] [address] VIR Bilirubin [Mass/Vol] 0.5 mg/dL Normal 0.3-1.2 [facility] Comment on above: Performed By: #### C MP #### [facility] ([facility]) [address] [place] [address] VIR Calcium [Mass/Vol] 9.6 mg/dL Normal 8.5-10.5 [facility] Comment on above: Performed By: #### C MP #### [facility] ([facility]) [address] [place] [address] VIR Chloride [Moles/Vol] 102 mmol/L Normal 98-109 [facility] Comment on above: Performed By: #### C MP #### [facility] ([facility]) [address] [place] [address] VIR CO2 [Moles/Vol] 28 mmol/L Normal 22-32 [facility] Comment on above: Performed By: #### C MP #### [facility] ([facility]) [address] [place] [address] VIR Creatinine [Mass/Vol] 0.68 mg/dL Normal 0.40-1.00 [facility] Comment on above: Result Comment: METH OD TRACEABLE TO IDMS STANDARD Performed By: #### C MP #### [facility] ([facility]) [address] [place] [address] VIR EGFR (CKD-EPI) NON-RACE DEPENDENT >^90 Normal >=60 [facility] Comment on above: Result Comment: Repo rted eGFR is based on the CKD-EPI 2020 equation that does not use a race coefficient. Performed By: #### C MP #### [facility] ([facility]) [address] [facility] [address] [place] [address] VIR Glucose [Mass/Vol] 99 mg/dL Normal 65-99 [facility] Comment on above: Performed By: #### C MP #### [facility] ([facility]) [address] [facility] [address] [place] [address] VIR Potassium [Moles/Vol] 3.9 mmol/L Normal 3.5-5.0 [facility] Comment on above: Performed By: #### C MP #### [facility] ([facility]) [address] [place] [address] VIR Protein [Mass/Vol] 7.2 g/dL Normal 6.0-8.0 [facility] Comment on above: Performed By: #### C MP #### [facility] ([facility]) [address] [facility] [address] [place] [address] VIR Sodium [Moles/Vol] 141 mmol/L Normal 134-146 [facility] Comment on above: Performed By: #### C MP #### [facility] ([facility]) [address] [place] [address] VIR Urea nitrogen [Mass/Vol] 15 mg/dL Normal 5-27 [facility] Comment on above: Performed By: #### C MP #### [facility] ([facility]) [address] [place] [address] VIR Comprehensive metabolic pane ish 01-19-2025 Albumin [Mass/Vol] 4.5 g/dL 3.2 - 5.3 g/dL [facility] ALP [Catalytic activity/Vol] 88 U/L 39 - 130 U/L [facility] ALT No additional P-5'-P [Catalytic activity/Vol] 15 U/L NINF - 31 U/L [facility] Anion gap [Moles/Vol] 11 mmol/L 5 - 15 mmol/L [facility] AST [Catalytic activity/Vol] 20 U/L NINF - 41 U/L [facility] Bilirubin [Mass/Vol] 0.5 mg/dL 0.3 - 1 .2 mg/dL [facility] Calcium [Mass/Vol] 9.6 mg/dL 8.5 - 10. 5 mg/dL [facility] Chloride [Moles/Vol] 102 mmol/L 98 - 10 9 mmol/L [facility] CO2 [Moles/Vol] 28 mmol/L 22 - 32 mmol/L [facility] Creatinine [Mass/Vol] 0.68 mg/dL 0.40 - 1.00 mg/dL [facility] Comment on above: METHOD TRACEABLE TO IDMS STANDARD EGFR Non-Race Dependent - PINF [facility] Comment on above: Reported eGFR is bas ed on the CKD-EPI 2020 equation that does not use a race coefficient. Glucose [Mass/Vol] 99 mg/dL 65 - 99 mg/dL [facility] Potassium [Moles/Vol] 3.9 mmol/L 3.5 - 5.0 mmol/L [facility] Protein [Mass/Vol] 7.2 g/dL 6.0 - 8.0 g/dL [facility] Sodium [Moles/Vol] 141 mmol/L 134 - 146 mmol/L [facility] Urea nitrogen [Mass/Vol] 15 mg/dL 5 - 27 mg/dL [facility] LIPID PROFILEon 01-19-2025 Cholesterol [Mass/Vol] 242 mg/dL High 150-200 [facility] Comment on above: Performed By: #### L IPR #### [facility] ([facility]) [address] [place] [address] VIR Cholesterol in HDL [Mass/Vol] 37 mg/dL Low >39 [facility] Comment on above: Result Comment: HDL <40 mg/dL - High Risk HDL > or = 40mg/dL- Desirable HDL >60 mg/dL - Negative Risk Performed By: #### L IPR #### [facility] ([facility]) [address] [place] [address] VIR Cholesterol in LDL [Mass/Vol] 177 mg/dL High <130 [facility] Comment on above: Result Comment: LDL <100 mg/dL - Desirable LDL >160 mg/dL - High Risk Performed By: #### L IPR #### [facility] ([facility]) [address] [place] [address] VIR CHOLESTEROL:HDL 6.5 High 1.0-5.0 [facility] Comment on above: Performed By: #### L IPR #### [facility] ([facility]) [address] [place] [address] VIR Triglyceride [Mass/Vol] 138 mg/dL Normal 27-150 [facility] Comment on above: Performed By: #### L IPR #### [facility] ([facility]) [address] [place] [address] VIR VERY LOW LIPOPROTEIN 28 mg/dL Normal 0-30 [facility] Comment on above: Performed By: #### L IPR #### [facility] ([facility]) [address] [place] [address] VIR Lipid profileon 01-19-2025 Cholesterol [Mass/Vol] 242 mg/dL High 150 - 200 mg/dL [facility] Cholesterol in HDL [Mass/Vol] 37 mg/dL Low 39 - PINF mg/dL [facility] Comment on above: HDL <40 mg/dL - High Risk HDL > or = 40mg/dL- Desirable HDL >60 mg/dL - Negative Risk Cholesterol in HDL [Mass/Vol] 6.5 mg/dL High 1.0 - 5.0 [facility] Cholesterol in LDL [Mass/Vol] 177 mg/dL High NINF - 130 mg/dL [facility] Comment on above: LDL <100 mg/dL - Korey irable LDL >160 mg/dL - High Risk Cholesterol in VLDL [Mass/Vol] 28 mg/dL 0 - 30 mg/dL [facility] Interpretation and review of laboratory results Abnormal [facility] Triglyceride [Mass/Vol] 138 mg/dL 27 - 150 mg/dL [facility] MAGNESIUMon 01-19-2025 Magnesium [Mass/Vol] 2.1 mg/dL Normal 1.8-2.6 [facility] Comment on above: Performed By: #### M G #### [facility] ([facility]) 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 Home/Environment Lives with [...] by Angélica Cortez 03/03/2024 14:05 EDT Normal [facility] .eGFRon 02-28-2024 GFR/1.73 sq M.predicted MDRD (S/P/Bld) [Vol rate/Area] mL/min/{1.73_m2} Normal >=60 [facility] Comment on above: Result Comment: [facility] Laboratories have implemented the eGFR calculation approach [...] years Performed By: #### A SA #### [facility] (UNKNOWN) [address] [place] [address] CBC w/ Diffon 02-28-2024 Erythrocyte distribution width (RBC) [Ratio] 13.3 % Normal 11.6-14.8 [facility] Comment on above: Performed By: #### A SA #### [facility] (UNKNOWN) [address] [place] [address] Hematocrit (Bld) [Volume fraction] 36.8 % Normal 36.0-46.0 [facility] Comment on above: Performed By: #### A SA #### [facility] (UNKNOWN) [address] [place] [address] Hemoglobin (Bld) [Mass/Vol] 12.2 g/dL Normal 12.0-16.0 [facility] Comment on above: Performed By: #### A SA #### [facility] (UNKNOWN) [address] [place] [address] MCH (RBC) [Entitic mass] 30.8 pg Normal 27.0-35.0 [facility] Comment on above: Performed By: #### A SA #### [facility] ([facility]KNOWN) [address] [place] [address] MCHC 33.0 % Normal 31.0-37.0 [facility] Comment on above: Performed By: #### A SA #### [facility] ([facility]KNOWN) [address] [place] [address] MCV (RBC) [Entitic vol] 93.3 fL Normal 80.0-100.0 [facility] Comment on above: Performed By: #### A SA #### [facility] (UNKNOWN) [address] [place] [address] Platelet 296 x10*3/mcL Normal 150-450 [facility] Comment on above: Performed By: #### A SA #### [facility] (UNKNOWN) [address] [place] [address] Platelet mean volume (Bld) [Entitic vol] 7.8 fL Normal 6.7-10.6 [facility] Comment on above: Performed By: #### A SA #### [facility] ([facility]KNOWN) [address] [place] [address] RBC 3.95 x10*6/mcL Normal 3.80-5.20 [facility] Comment on above: Performed By: #### A #### [facility] (UNKNOWN) [address] [place] [address] WBC 8.4 x10*3/mcL Normal 4.5-11.0 [facility] Comment on above: Performed By: #### A #### [facility] ([facility]KNOWN) [address] [place] [address] CMPon 02-28-2024 Albumin [Mass/Vol] 3.4 g/dL Normal 3.2-4.9 [facility] Comment on above: Performed By: #### A CHRISTINE #### [facility] ([facility]KNOWN) [address] [place] [address] Albumin/Globulin [Mass ratio] 1.3 {ratio} Normal 1.1-2.2 [facility] Comment on above: Performed By: #### A CHRISTINE #### [facility] ([facility]KNOWN) [address] [place] [address] Alk Phos 54 IU/L Normal 32-91 [facility] Comment on above: Performed By: #### A CHRISTINE #### [facility] ([facility]) [address] [place] [address] ALT [Catalytic activity/Vol] 24 U/L Normal 14-54 [facility] Comment on above: Performed By: #### A CHRISTINE #### [facility] ([facility]KNOWN) [address] [place] [address] Anion gap [Moles/Vol] 10 mmol/L Normal 4-12 [facility] Comment on above: Performed By: #### A CHRISTINE #### [facility] ([facility]KNOWN) [address] [place] [address] AST [Catalytic activity/Vol] 25 U/L Normal 15-41 [facility] Comment on above: Performed By: #### A CHRISTINE #### [facility] ([facility]KNOWN) [address] [place] [address] Bili Total 0.5 mg/dL Normal 0.3-1.2 [facility] Comment on above: Performed By: #### A CHRISTINE #### [facility] ([facility]KNOWN) [address] [place] [address] Calcium [Mass/Vol] 8.8 mg/dL Normal 8.5-10.3 [facility] Comment on above: Performed By: #### A CHRISTINE #### [facility] ([facility]KNOWN) [address] [place] [address] Chloride [Moles/Vol] 100 mmol/L Normal 98-110 [facility] Comment on above: Performed By: #### A CHRISTINE #### [facility] ([facility]KNOWN) [address] [place] [address] CO2 [Moles/Vol] 29 mmol/L Normal 22-32 [facility] Comment on above: Performed By: #### A CHRISTINE #### [facility] ([facility]KNOWN) [address] [place] [address] Creatinine [Mass/Vol] 0.85 mg/dL Normal 0.44-1.03 [facility] Comment on above: Performed By: #### A CHRISTINE #### [facility] ([facility]KNOWN) [address] [place] [address] Glucose [Mass/Vol] 108 mg/dL High 70-99 [facility] Comment on above: Performed By: #### A CHRISTINE #### [facility] ([facility]KNOWN) [address] [place] [address] Potassium [Moles/Vol] 4.3 mmol/L Normal 3.4-4.8 [facility] Comment on above: Performed By: #### A CHRISTINE #### [facility] ([facility]KNOWN) [address] [place] [address] Protein [Mass/Vol] 6.0 g/dL Low 6.5-8.1 [facility] Comment on above: Performed By: #### A CHRISTINE #### [facility] ([facility]KNOWN) [address] [place] [address] Sodium [Moles/Vol] 139 mmol/L Normal 133-142 [facility] Comment on above: Performed By: #### A CHRISTINE #### [facility] ([facility]KNOWN) [address] [place] [address] Urea nitrogen [Mass/Vol] 11 mg/dL Normal 8-26 [facility] Comment on above: Performed By: #### A CHRISTINE #### [facility] (UNKNOWN) [address] [place] [address] Urea nitrogen/Creatinine [Mass ratio] 12.9 mg/mg Normal 10.0-20.0 [facility] Comment on above: Performed By: #### A CHRISTINE #### [facility] (UNKNOWN) [address] [place] [address] Diff Autoon 02-28-2024 Baso Absolute 0.1 x10*3/mcL Normal 0.0-0.2 [facility] Comment on above: Performed By: #### A CHRISTINE #### [facility] (UNKNOWN) [address] [place] [address] Basophils/100 WBC (Bld) 0.8 % Normal 0.0-1.5 [facility] Comment on above: Performed By: #### A CHRISTINE #### [facility] (UNKNOWN) [address] [place] [address] Eos Absolute 0.1 x10*3/mcL Normal 0.0-0.4 [facility] Comment on above: Performed By: #### A CHRISTINE #### [facility] ([facility]KNOWN) [address] [place] [address] Eosinophils/100 WBC (Bld) 0.8 % Normal 0.0-5.4 [facility] Comment on above: Performed By: #### A CHRISTINE #### [facility] ([facility]KNOWN) [address] [place] [address] Lymph Absolute 2.2 x10*3/mcL Normal 1.0-4.8 [facility] Comment on above: Performed By: #### A CHRISTINE #### [facility] (UNKNOWN) [address] [place] [address] Lymphocytes/100 WBC (Bld) 26.1 % Low 27.2-40.8 [facility] Comment on above: Performed By: #### A CHRISTINE #### [facility] ([facility]KNOWN) [address] [place] [address] [place] Absolute 0.8 x10*3/mcL Normal 0.1-1.1 [facility] Comment on above: Performed By: #### A CHRISTINE #### [facility] ([facility]KNOWN) [address] [place] [address] Monocytes/100 WBC (Bld) 9.5 % Normal 3.7-11.9 [facility] Comment on above: Performed By: #### A CHRISTINE #### [facility] (UNKNOWN) [address] [place] [address] Neutro Absolute 5.3 x10*3/mcL Normal 1.8-7.7 [facility] Comment on above: Performed By: #### A CHRISTINE #### [facility] (UNKNOWN) [address] [place] [address] Neutro Auto 62.8 % Normal 47.2-70.8 [facility] Comment on above: Performed By: #### A CHRISTINE #### [facility] (UNKNOWN) [address] [place] [address] Inpatient Clinical Summaryon 02-28-2024 Inpatient Clinical Summary [address] [address] Clinical Summary Person Information Name: Petrona Gordon Age: 63 Years : 1960 Sex: Female PCP: Rohith Archer DO Marital Status: Single Phone: PCP: Race: White Ethnicity: Not or Language: Maltese Visit Id: Visit Reason: Speciality: Acuity: Enc Type: Inpatient Med Service: Surgery Arrival: 02/26/2024 08:53:02 Discharge: Dispo Type: Address: [address] [place] [address] [address] [place] [id number] Diagnosis: Post-op pain Discharged To: Home Treatments: [...] range between ( 27.2 and 40.8 ) [place] Auto: 9.5 % -- Normal range between [...] range between ( 36.0 and 46.0 ) [place] Absolute: 0.8 x10 MCH: 30.8 pg -- [...] No Immunizations (more content not included)... Normal [facility] Magnesiumon 02-28-2024 Magnesium [Mass/Vol] 1.8 mg/dL Normal 1.7-2.4 [facility] Comment on above: Performed By: #### A SA #### [facility] (UNKNOWN) [address] [place] [address] Phosphoruson 02-28-2024 Phosphate [Mass/Vol] 2.7 mg/dL Normal 2.5-4.6 [facility] Comment on above: Performed By: #### A SA #### [facility] (UNKNOWN) [address] [place] [address] Surgical Progress Noteon Surgical Progress Note Patient tolerating diet did not like her arm at this morning no nausea no vomiting No gas or BM yet Pain is well-controlled Ambulating in the halls Status post sigmoidectomy and rectopexy Awaiting bowel function Discharge this afternoon versus tomorrow Electronically signed by Iván Sapp MD 02/28/24 10:33 EDT Normal [facility] .eGFRon 02-27-2024 GFR/1.73 sq M.predicted MDRD (S/P/Bld) [Vol rate/Area] mL/min/{1.73_m2} Normal >=60 [facility] Comment on above: Result Comment: [facility] Laboratories have implemented the eGFR calculation approach [...] years Performed By: #### A SA #### [facility] (UNKNOWN) [address] [place] [address] CBC w/ Diffon 02-27-2024 Erythrocyte distribution width (RBC) [Ratio] 12.8 % Normal 11.6-14.8 [facility] Comment on above: Performed By: #### A SA #### [facility] (UNKNOWN) [address] [place] [address] Hematocrit (Bld) [Volume fraction] 36.9 % Normal 36.0-46.0 [facility] Comment on above: Performed By: #### A SA #### [facility] (UNKNOWN) [address] [place] [address] Hemoglobin (Bld) [Mass/Vol] 12.6 g/dL Normal 12.0-16.0 [facility] Comment on above: Performed By: #### A SA #### [facility] (UNKNOWN) [address] [place] [address] MCH (RBC) [Entitic mass] 31.4 pg Normal 27.0-35.0 [facility] Comment on above: Performed By: #### A SA #### [facility] (UNKNOWN) [address] [place] [address] MCHC 34.1 % Normal 31.0-37.0 [facility] Comment on above: Performed By: #### A SA #### [facility] (UNKNOWN) [address] [place] [address] MCV (RBC) [Entitic vol] 92.0 fL Normal 80.0-100.0 [facility] Comment on above: Performed By: #### A SA #### [facility] (UNKNOWN) [address] [place] [address] Platelet 329 x10*3/mcL Normal 150-450 [facility] Comment on above: Performed By: #### A #### [facility] (UNKNOWN) [address] [place] [address] Platelet mean volume (Bld) [Entitic vol] 7.9 fL Normal 6.7-10.6 [facility] Comment on above: Performed By: #### A #### [facility] (UNKNOWN) [address] [place] [address] RBC 4.01 x10*6/mcL Normal 3.80-5.20 [facility] Comment on above: Performed By: #### A #### [facility] (UNKNOWN) [address] [place] [address] WBC 11.7 x10*3/mcL High 4.5-11.0 [facility] Comment on above: Performed By: #### A SA #### [facility] (UNKNOWN) [address] [place] [address] CMPon 02-27-2024 Albumin [Mass/Vol] 3.3 g/dL Normal 3.2-4.9 [facility] Comment on above: Performed By: #### A ACACIA #### [facility] (UNKNOWN) [address] [place] [address] Albumin/Globulin [Mass ratio] 1.2 {ratio} Normal 1.1-2.2 [facility] Comment on above: Performed By: #### A CHRISTINE #### [facility] (UNKNOWN) [address] [place] [address] Alk Phos 62 IU/L Normal 32-91 [facility] Comment on above: Performed By: #### A CHRISTINE #### [facility] (UNKNOWN) [address] [place] [address] ALT [Catalytic activity/Vol] 15 U/L Normal 14-54 [facility] Comment on above: Performed By: #### A CHRISTINE #### [facility] (UNKNOWN) [address] [place] [address] Anion gap [Moles/Vol] 8 mmol/L Normal 4-12 [facility] Comment on above: Performed By: #### A CHRISTINE #### [facility] (UNKNOWN) [address] [place] [address] AST [Catalytic activity/Vol] 19 U/L Normal 15-41 [facility] Comment on above: Performed By: #### A CHRISTINE #### [facility] (UNKNOWN) [address] [place] [address] Bili Total 0.9 mg/dL Normal 0.3-1.2 [facility] Comment on above: Performed By: #### A CHRISTINE #### [facility] (UNKNOWN) [address] [place] [address] Calcium [Mass/Vol] 8.5 mg/dL Normal 8.5-10.3 [facility] Comment on above: Performed By: #### A CHRISTINE #### [facility] (UNKNOWN) [address] [place] [address] Chloride [Moles/Vol] 101 mmol/L Normal 98-110 [facility] Comment on above: Performed By: #### A CHRISTINE #### [facility] (UNKNOWN) [address] [place] [address] CO2 [Moles/Vol] 23 mmol/L Normal 22-32 [facility] Comment on above: Performed By: #### A CHRISTINE #### [facility] (UNKNOWN) [address] [place] [address] Creatinine [Mass/Vol] 0.79 mg/dL Normal 0.44-1.03 [facility] Comment on above: Performed By: #### A CHRISTINE #### [facility] (UNKNOWN) [address] [place] [address] Glucose [Mass/Vol] 119 mg/dL High 70-99 [facility] Comment on above: Performed By: #### A CHRISTINE #### [facility] (UNKNOWN) [address] [place] [address] Potassium [Moles/Vol] 4.2 mmol/L Normal 3.4-4.8 [facility] Comment on above: Performed By: #### A CHRISTINE #### [facility] (UNKNOWN) [address] [place] [address] Protein [Mass/Vol] 6.0 g/dL Low 6.5-8.1 [facility] Comment on above: Performed By: #### A CHRISTINE #### [facility] (UNKNOWN) [address] [place] [address] Sodium [Moles/Vol] 132 mmol/L Low 133-142 [facility] Comment on above: Performed By: #### A CHRISTINE #### [facility] (UNKNOWN) [address] [place] [address] Urea nitrogen [Mass/Vol] 16 mg/dL Normal 8-26 [facility] Comment on above: Performed By: #### A CHRISTINE #### [facility] (UNKNOWN) [address] [place] [address] Urea nitrogen/Creatinine [Mass ratio] 20.3 mg/mg High 10.0-20.0 [facility] Comment on above: Performed By: #### A CHRISTINE #### [facility] (UNKNOWN) [address] [place] [address] Diff Autoon 02-27-2024 Baso Absolute 0.0 x10*3/mcL Normal 0.0-0.2 [facility] Comment on above: Performed By: #### A SA #### [facility] (UNKNOWN) [address] [place] [address] Basophils/100 WBC (Bld) 0.3 % Normal 0.0-1.5 [facility] Comment on above: Performed By: #### A SA #### [facility] (UNKNOWN) [address] [place] [address] Eos Absolute 0.0 x10*3/mcL Normal 0.0-0.4 [facility] Comment on above: Performed By: #### A SA #### [facility] (UNKNOWN) [address] [place] [address] Eosinophils/100 WBC (Bld) 0.0 % Normal 0.0-5.4 [facility] Comment on above: Performed By: #### A SA #### [facility] (UNKNOWN) [address] [place] [address] Lymph Absolute 0.9 x10*3/mcL Low 1.0-4.8 [facility] Comment on above: Performed By: #### A SA #### [facility] (UNKNOWN) [address] [place] [address] Lymphocytes/100 WBC (Bld) 7.4 % Low 27.2-40.8 [facility] Comment on above: Performed By: #### A SA #### [facility] (UNKNOWN) [address] [place] [address] [place] Absolute 0.9 x10*3/mcL Normal 0.1-1.1 [facility] Comment on above: Performed By: #### A SA #### [facility] (UNKNOWN) [address] [place] [address] Monocytes/100 WBC (Bld) 7.8 % Normal 3.7-11.9 [facility] Comment on above: Performed By: #### A SA #### [facility] (UNKNOWN) [address] [place] [address] Neutro Absolute 9.9 x10*3/mcL High 1.8-7.7 [facility] Comment on above: Performed By: #### A SA #### [facility] (UNKNOWN) [address] [place] [address] Neutro Auto 84.5 % High 47.2-70.8 [facility] Comment on above: Performed By: #### A SA #### [facility] (UNKNOWN) [address] [place] [address] Magnesiumon 02-27-2024 Magnesium [Mass/Vol] 1.6 mg/dL Low 1.7-2.4 [facility] Comment on above: Performed By: #### M G #### [facility] [address] [place] [address] Phosphoruson 02-27-2024 Phosphate [Mass/Vol] 3.8 mg/dL Normal 2.5-4.6 [facility] Comment on above: Performed By: #### A SA #### [facility] (UNKNOWN) [address] [place] [address] Surgical Progress Noteon Surgical Progress Note Patient [...] Iván Sapp MD 02/27/24 10:53 EDT Normal [facility] Operative Reporton 4 Operative Report Indication for Surgery Rectal prolapse Preoperative Diagnosis Same Postoperative Diagnosis Sigmoid colectomy with rectopexy Operation Rectopexy Robotic X/Xi Resection Sigmoid Colon Robotic X/Xi Surgeon(s) Eveline Ozuna MD, I (Surgeon - Primary) Chrome Cleaner Nae Caputo PA-C (Senior Energy Trader) Anesthesia General Juan Miguel Negron DO (Partner Management Consultant) Estimated Blood Loss 15 mL Urine Output [...] in the right upper quadrant as an office assistant port. The patient was then placed [...] EEA stapler was then inserted by the office assistant into the proximal anterior aspect of the rectal stump just distal to staple line to allow for performing the anastomosis anteriorly wh (more content not included)... Normal [facility] .eGFRon 02-16-2024 GFR/1.73 sq M.predicted MDRD (S/P/Bld) [Vol rate/Area] mL/min/{1.73_m2} Normal >=60 [facility] Comment on above: Order Comment: Order added by Discern rule Result Comment: [facility] have implemented the eGFR calculation approach [...] Age = years Performed By: #### A [facility] #### [facility] (UNKNOWN) [address] [place] [address] GFR/1.73 sq M.predicted MDRD (S/P/Bld) [Vol rate/Area] mL/min/{1.73_m2} Normal >=60 [facility] Comment on above: Order Comment: Order added by Discern Rule. Result Comment: [facility] Laboratories have implemented the eGFR calculation approach [...] years Performed By: #### A CHRISTINE #### [facility] (UNKNOWN) [address] [place] [address] ABO/Rhon 02-16-2024 ABO/Rh ABO/Rh: B POS Normal [facility] Comment on above: Performed By: #### A CHRISTINE #### [facility] (UNKNOWN) [address] [place] [address] ABSC Autoon 02-16-2024 ABSC Auto Negative Normal [facility] Comment on above: Performed By: #### A #### [facility] (UNKNOWN) [address] [place] [address] CBC w/ Diffon 02-16-2024 Erythrocyte distribution width (RBC) [Ratio] 13.0 % Normal 11.6-14.8 [facility] Comment on above: Performed By: #### A CHRISTINE #### [facility] (UNKNOWN) [address] [place] [address] Hematocrit (Bld) [Volume fraction] 41.7 % Normal 36.0-46.0 [facility] Comment on above: Performed By: #### A CHRISTINE #### [facility] (UNKNOWN) [address] [place] [address] Hemoglobin (Bld) [Mass/Vol] 14.4 g/dL Normal 12.0-16.0 [facility] Comment on above: Performed By: #### A CHRISTINE #### [facility] (UNKNOWN) [address] [place] [address] MCH (RBC) [Entitic mass] 31.8 pg Normal 27.0-35.0 [facility] Comment on above: Performed By: #### A CHRISTINE #### [facility] (UNKNOWN) [address] [place] [address] MCHC 34.4 % Normal 31.0-37.0 [facility] Comment on above: Performed By: #### A CHRISTINE #### [facility] (UNKNOWN) [address] [place] [address] MCV (RBC) [Entitic vol] 92.5 fL Normal 80.0-100.0 [facility] Comment on above: Performed By: #### A CHRISTINE #### [facility] (UNKNOWN) [address] [place] [address] Platelet 378 x10*3/mcL Normal 150-450 [facility] Comment on above: Performed By: #### A CHRISTINE #### [facility] (UNKNOWN) [address] [place] [address] Platelet mean volume (Bld) [Entitic vol] 6.9 fL Low 7.5-11.5 [facility] Comment on above: Performed By: #### A CHRISTINE #### [facility] (UNKNOWN) [address] [place] [address] RBC 4.51 x10*6/mcL Normal 3.80-5.20 [facility] Comment on above: Performed By: #### A CHRISTINE #### [facility] (UNKNOWN) [address] [place] [address] WBC 7.4 x10*3/mcL Normal 4.5-11.0 [facility] Comment on above: Performed By: #### A CHRISTINE #### [facility] (UNKNOWN) [address] [place] [address] CMPon 02-16-2024 Albumin [Mass/Vol] 4.6 g/dL Normal 3.7-5.3 [facility] Comment on above: Performed By: #### A #### [facility] (UNKNOWN) [address] [place] [address] Albumin/Globulin [Mass ratio] 1.7 {ratio} Normal 1.1-2.2 [facility] Comment on above: Performed By: #### A SA #### [facility] (UNKNOWN) [address] [place] [address] Alk Phos 80 IU/L Normal 34-104 [facility] Comment on above: Performed By: #### A SA #### [facility] (UNKNOWN) [address] [place] [address] ALT [Catalytic activity/Vol] 12 U/L Normal 7-52 [facility] Comment on above: Performed By: #### A SA #### [facility] (UNKNOWN) [address] [place] [address] Anion gap [Moles/Vol] 4 mmol/L Normal 4-12 [facility] Comment on above: Performed By: #### A SA #### [facility] (UNKNOWN) [address] [place] [address] AST [Catalytic activity/Vol] 17 U/L Normal 13-39 [facility] Comment on above: Performed By: #### A SA #### [facility] (UNKNOWN) [address] [place] [address] Bili Total 0.5 mg/dL Normal 0.3-1.0 [facility] Comment on above: Performed By: #### A SA #### [facility] (UNKNOWN) [address] [place] [address] Calcium [Mass/Vol] 9.9 mg/dL Normal 8.6-10.3 [facility] Comment on above: Performed By: #### A SA #### [facility] (UNKNOWN) [address] [place] [address] Chloride 103 IU/L Normal 98-107 [facility] Comment on above: Performed By: #### A SA #### [facility] (UNKNOWN) [address] [place] [address] CO2 [Moles/Vol] 31 mmol/L Normal 21-31 [facility] Comment on above: Performed By: #### A SA #### [facility] (UNKNOWN) [address] [place] [address] Creatinine [Mass/Vol] 0.59 mg/dL Low 0.60-1.20 [facility] Comment on above: Performed By: #### A SA #### [facility] (UNKNOWN) [address] [place] [address] Glucose [Mass/Vol] 90 mg/dL Normal 70-99 [facility] Comment on above: Performed By: #### A SA #### [facility] (UNKNOWN) [address] [place] [address] Potassium [Moles/Vol] 4.3 mmol/L Normal 3.4-4.8 [facility] Comment on above: Performed By: #### A SA #### [facility] (UNKNOWN) [address] [place] [address] Protein [Mass/Vol] 7.3 g/dL Normal 6.0-8.3 [facility] Comment on above: Performed By: #### A SA #### [facility] (UNKNOWN) [address] [place] [address] Sodium [Moles/Vol] 138 mmol/L Normal 136-145 [facility] Comment on above: Performed By: #### A SA #### [facility] (UNKNOWN) [address] [place] [address] Urea nitrogen [Mass/Vol] 10 mg/dL Normal 7-25 [facility] Comment on above: Performed By: #### A SA #### [facility] (UNKNOWN) [address] [place] [address] Urea nitrogen/Creatinine [Mass ratio] 16.9 mg/mg Normal 10.0-20.0 [facility] Comment on above: Performed By: #### A SA #### [facility] (UNKNOWN) [address] [place] [address] CT Abdomen Pelvis w/ IV Cont raston [...] extend through the anus. Radiation Dose Estimate: CTDI(mGy):0.473720 / / / kVp:100.235173 / mAs:0.005332 / / / DLP(mGy-cm):0.424581 Body Part: Abdomen CTDI(mGy):4.433367 / / / kVp:80.735750 / mAs:128.703296 / / / DLP(mGy-cm):192.0000 00Body Part: Abdomen Final Dictated by: Irma Estevez MD Dictated DT/TM: 02.16.2024 3:59 pm Signed by: Irma Estevez MD Signed (Electronic Signature): 02.16.2024 4:12 pm (If Report Is Signed, Electronically Signed in Other Vendor System) Normal [facility] Comment on above: Order Comment: tatiana khan order signed 02/04/24 - joe baxter in [employer] Diff Autoon 02-16-2024 Baso Absolute 0.1 x10*3/mcL Normal 0.0-0.2 [facility] Comment on above: Performed By: #### A SA #### [facility] (UNKNOWN) [address] [place] [address] Basophils/100 WBC (Bld) 1.1 % Normal 0.0-1.5 [facility] Comment on above: Performed By: #### A SA #### [facility] (UNKNOWN) [address] [place] [address] Eos Absolute 0.1 x10*3/mcL Normal 0.0-0.4 [facility] Comment on above: Performed By: #### A SA #### [facility] (UNKNOWN) [address] [place] [address] Eosinophils/100 WBC (Bld) 1.4 % Normal 0.0-5.4 [facility] Comment on above: Performed By: #### A SA #### [facility] (UNKNOWN) [address] [place] [address] Lymph Absolute 2.0 x10*3/mcL Normal 1.0-4.8 [facility] Comment on above: Performed By: #### A SA #### [facility] (UNKNOWN) [address] [place] [address] Lymphocytes/100 WBC (Bld) 26.9 % Low 27.2-40.8 [facility] Comment on above: Performed By: #### A SA #### [facility] (UNKNOWN) [address] [place] [address] [place] Absolute 0.5 x10*3/mcL Normal 0.1-1.1 [facility] Comment on above: Performed By: #### A SA #### [facility] (UNKNOWN) [address] [place] [address] Monocytes/100 WBC (Bld) 6.9 % Normal 3.7-11.9 [facility] Comment on above: Performed By: #### A SA #### [facility] (UNKNOWN) [address] [place] [address] Neutro Absolute 4.7 x10*3/mcL Normal 1.8-7.7 [facility] Comment on above: Performed By: #### A SA #### [facility] (UNKNOWN) [address] [place] [address] Neutro Auto 63.7 % Normal 47.2-70.8 [facility] Comment on above: Performed By: #### A SA #### [facility] (UNKNOWN) [address] [place] [address] POC Creatinine Von POC Crea iStat Venous 0.6 mg/dL Normal 0.6-1.3 [facility] Comment on above: Performed By: #### A CHRISTINE #### [facility] (UNKNOWN) [address] [place] [address] Surgery Office/Clinic Noteon 02-04-2024 Surgery Office/Clinic Note Chief Complaint Rectal protrusion History of Present Illness 63 year old female, referred by Dr. Amanda ([facility]), patient of Colin Sarah Patient is here with c/o protrusion from the rectum that has been an ongoing issue for many years, but worsening lately. States it is becoming more difficult to reduce. She denies constipation or straining and bleeding. Last colonoscopy 01-14-2023 in [place], diverticulosis and tubular adenoma x2. The patient [...] (01/14/2023) Medicatio (more content not included)... Normal [facility] COMPREHENSIVE METABOLIC PANE Ish 09-01-2023 Albumin [Mass/Vol] 4.5 g/dL Normal 3.2-5.3 [facility] Comment on above: Performed By: #### C TAMRA, 30320-3 #### [facility] ([id number]) [address], [address] [place] [address] ALP [Catalytic activity/Vol] 73 U/L Normal 39-130 [facility] Comment on above: Performed By: #### Huseyin BARBOZA, 59426-3 #### [facility] ([id number]) [address], [address] [place] [address] ALT [Catalytic activity/Vol] 21 U/L Normal 0-31 [facility] Comment on above: Performed By: #### Huseyin BARBOZA, 60540-7 #### [facility] ([id number]) [address], [address] [place] [address] Anion gap [Moles/Vol] 8 mmol/L Normal 5-15 [facility] Comment on above: Performed By: #### Huseyin BARBOZA, 07489-6 #### [facility] ([id number]) [address], [address] [place] [address] AST [Catalytic activity/Vol] 24 U/L Normal 0-41 [facility] Comment on above: Performed By: #### Huseyin BARBOZA 11192-7 #### [facility] ([id number]) [address], [address] [place] [address] Bilirubin [Mass/Vol] 0.3 mg/dL Normal 0.3-1.2 [facility] Comment on above: Performed By: #### Huseyin BARBOZA, 09893-9 #### [facility] ([id number]) [address], [address] [place] [address] Calcium [Mass/Vol] 9.4 mg/dL Normal 8.5-10.5 [facility] Comment on above: Performed By: #### Huseyin BARBOZA, 99110-1 #### [facility] ([id number]) [address], [address] [place] [address] Chloride [Moles/Vol] 102 mmol/L Normal 98-109 [facility] Comment on above: Performed By: #### Huseyin BARBOZA, 84245-3 #### [facility] ([id number]) [address], [address] [place] [address] CO2 [Moles/Vol] 30 mmol/L Normal 22-32 [facility] Comment on above: Performed By: #### Huseyin BARBOZA, 21794-8 #### [facility] ([id number]) [address], [address] [place] [address] Creatinine [Mass/Vol] 0.58 mg/dL Normal 0.40-1.00 [facility] Comment on above: Result Comment: METH OD TRACEABLE TO IDMS STANDARD Performed By: #### Huseyin BARBOZA, 12529-7 #### [facility] ([id number]) [address], [address] [place] [address] eGFR (CKD-EPI) NON-RACE DEPENDENT >90 Normal >59 [facility] Comment on above: Result Comment: Reported eGFR is based on the CKD-EPI 2020 equation that does not use a race coefficient. Performed By: #### Huseyin BARBOZA, 03138-5 #### [facility] ([id number]) [address] [place] [address] Glucose [Mass/Vol] 98 mg/dL Normal 65-99 [facility] Comment on above: Performed By: #### Huseyin BARBOZA, 86814-8 #### [facility] ([id number]) [address] [place] [address] Potassium [Moles/Vol] 4.5 mmol/L Normal 3.5-5.0 [facility] Comment on above: Performed By: #### Huseyin BARBOZA, 38433-9 #### [facility] ([id number]) [address] [place] [address] Protein [Mass/Vol] 6.9 g/dL Normal 6.0-8.0 [facility] Comment on above: Performed By: #### Huseyin BARBOZA, 72448-4 #### [facility] ([id number]) [address] [place] [address] Sodium [Moles/Vol] 140 mmol/L Normal 134-146 [facility] Comment on above: Performed By: #### Huseyin BARBOZA, 21273-3 #### [facility] ([id number]) [address], [address] [place] [address] Urea nitrogen [Mass/Vol] 12 mg/dL Normal 5-27 [facility] Comment on above: Performed By: #### Huseyin BARBOZA, 18848-6 #### [facility] ([id number]) [address], [address] [place] [address] Comprehensive metabolic pane ish 09-01-2023 Albumin [Mass/Vol] 4.5 g/dL 3.2 - 5.3 g/dL [facility] ALP [Catalytic activity/Vol] 73 U/L 39 - 130 U/L [facility] ALT No additional P-5'-P [Catalytic activity/Vol] 21 U/L 0 - 31 U/L [facility] Anion gap [Moles/Vol] 8 mmol/L 5 - 15 mmol/L [facility] AST [Catalytic activity/Vol] 24 U/L 0 - 41 U/L [facility] Bilirubin [Mass/Vol] 0.3 mg/dL 0.3 - 1 .2 mg/dL [facility] Calcium [Mass/Vol] 9.4 mg/dL 8.5 - 10. 5 mg/dL [facility] Chloride [Moles/Vol] 102 mmol/L 98 - 10 9 mmol/L [facility] CO2 [Moles/Vol] 30 mmol/L 22 - 32 mmol/L [facility] Creatinine [Mass/Vol] 0.58 mg/dL 0.40 - 1.00 mg/dL [facility] Comment on above: METHOD TRACEABLE TO [facility] STANDARD eGFR (CKD-EPI)non-race dependent - PINF [facility] Comment on above: Reported eGFR is based on the CKD-EPI 2020 equation that does not use a race coefficient. Glucose [Mass/Vol] 98 mg/dL 65 - 99 mg/dL [facility] Potassium [Moles/Vol] 4.5 mmol/L 3.5 - 5.0 mmol/L [facility] Protein [Mass/Vol] 6.9 g/dL 6.0 - 8.0 g/dL [facility] Sodium [Moles/Vol] 140 mmol/L 134 - 146 mmol/L [facility] Urea nitrogen [Mass/Vol] 12 mg/dL 5 - 27 mg/dL [facility] Lipid 1996 panelon 4 Cholesterol [Mass/Vol] 191 mg/dL 150 - 200 mg/dL [facility] Cholesterol in HDL [Mass/Vol] 54 mg/dL 39 - PINF mg/dL [facility] Comment on above: HDL <40 mg/dL - High Risk HDL > or = 40mg/dL- Desirable HDL >60 mg/dL - Negative Risk Cholesterol in LDL [Mass/Vol] 111 mg/dL NINF - 130 mg/dL [facility] Comment on above: LDL <100 mg/dL - Desirable LDL >160 mg/dL - High Risk Cholesterol in VLDL [Mass/Vol] 26 mg/dL 0 - 30 mg/dL [facility] Cholesterol.total/Cho lesterol in HDL [Mass ratio] 3.5 {ratio} 1.0 - 5.0 [facility] Triglyceride [Mass/Vol] 130 mg/dL 27 - 150 mg/dL [facility] Cholesterol [Mass/Vol] 191 mg/dL Normal 150-200 [facility] Comment on above: Performed By: ###Elvira Fontanez MP, [id number] #### [facility] ([id number]) [address], [facility] [address] [place] [address] Cholesterol in HDL [Mass/Vol] 54 mg/dL Normal >39 [facility] Comment on above: Result Comment: HDL <40 mg/dL - High Risk HDL > or = 40mg/dL- Desirable HDL >60 mg/dL - Negative Risk Performed By: ###[place], [address]-4 #### [facility] ([id number]) [address], [address] [place] [address] Cholesterol in LDL [Mass/Vol] 111 mg/dL Normal <130 [facility] Comment on above: Result Comment: LDL <100 mg/dL - Desirable LDL >160 mg/dL - High Risk Performed By: #### Huseyin BARBOZA, 64152-6 #### [facility] ([id number]) [address], [address] [place] [address] Cholesterol in VLDL [Mass/Vol] 26 mg/dL Normal 0-30 [facility] Comment on above: Performed By: #### C TAMRA, 82481-0 #### [facility] ([id number]) [address], [address] [place] [address] CHOLESTEROL:HDL 3.5 Normal 1.0-5.0 [facility] Comment on above: Performed By: #### Huseyin BARBOZA, 38905-8 #### [facility] ([id number]) [address], [address] [place] [address] Triglyceride [Mass/Vol] 130 mg/dL Normal 27-150 [facility] Comment on above: Performed By: #### Huseyin BARBOZA, 98064-9 #### [facility] ([id number]) [address], [address] [place] [address] No Panel Informationon 08-31 [facility] POCT EKGOrdered By: Cami Fine per on 06-15-2023 [facility] Outside Colonoscopyon 2022 Outside Colonoscopy [id number] 7#1.00CD:127 Normal [facility] Pathology Noteon 01-21-2023 Pathology Note [id number] #1.00CD:127 Normal [facility] Reminderson 01-21-2023 Reminders - From: Elisa Patel LPN To: GSN - Clinical; Sent: 01/21/2023 10:07:40 EDT Show up: 12/15/2027 07:00:00 EDT Subject: colonoscopy recall Due Date/Time: 01/15/2028 07:00:00 EDT Reminder/Recall Patient due for surveillance colonoscopy 01/15/2028. Normal [facility] Insurance Correspondenceon 0 12-26-2022 Insurance Correspondence [id number] 7#1.00CD:127 Normal [facility] Consent for Procedure/Surger yon 12-17-2022 Consent for Procedure/Surgery [id number] #1.00CD:127 [facility] Facesheeton 12-17-2022 Facesheet [id number] #1.00CD:127 [facility] Ambulatory Visit Summaryon 0 12-16-2022 Ambulatory Visit [...] Overweight Screening for malignant neoplasm of colon [facility] Physician Referralon 023 Physician Referral [id number] #1.00CD:127 [facility] CT LUNG CANCER SCREENINGon 0 09-29-2022 CT [...] by: GABRIEL ROBERTSON Date: 2022-09-29 17:03 Normal [facility] COVID + FLU Quick Testingon 05-31-2022 SARS-CoV-2 (COVID-19) RNA MILAN+probe Ql (Unsp spec) Negative [facility] Other COVID + FLU Quick Testing Negative [facility] [employer] Other XR chest 2V*on 05-31-2022 XR chest 2V* [facility] Main [place] [address] [place] [address] XRay Report Signed Patient: Petrona Gordon MR#: [id number] : 1960 Acct:[id number] Age/Sex: 61 / F ADM Date: 05/31/22 Loc: XDUCLY Room: Type: [facility] Attending Dr: Janice MORELOS Copies [...] Keyonna Head M.D.05/31/2022 1:14 PM Dictation Location: [facility]--02 Transcribed By: LAUREEN 05/31/22 1314 Dictated By: Keyonna Head MD 05/31/22 1313 Signed By: 05/31/22 1314 Normal [facility] XR chest 2V* [facility] [employer] Other XR chest 2V* [facility] [employer] Other XR chest 2V* [address] [place] [address] [employer] Other XR chest 2V* [place] [address] [facility] [employer] Other XR chest 2V* XRay Report [facility] [employer] Other XR chest 2V* Signed [facility] Other XR chest 2V* Patient: Petrona Gordon MR#: [id number] [facility] Other XR chest 2V* [id number] [facility] Other XR chest 2V* : 1960 Acct:[id number] [facility] Other XR chest 2V* Age/Sex: 61 / F ADM Date: 05/31/22 [facility] Other XR chest 2V* Loc: XDUCLY Room: Type: [facility] [employer] Other XR chest 2V* Attending Dr: Janice Rahman ELECTRIC RANGE SERVICER-C [facility] [employer] Other XR chest 2V* Copies to: JETHRO Robles [facility] Other XR chest 2V* Ordering Provider: JETHRO Robles [facility] [employer] Other XR chest 2V* Date of Service: 05/31/22 [facility] [employer] Other XR chest 2V* XR/XR chest 2V*: COUGH [facility] [employer] Other XR chest 2V* PA AND LATERAL CHEST: [facility] [employer] Other XR chest 2V* CLINICAL HISTORY: Chest tightness on the right and productive cough [facility] [employer] Other XR chest 2V* COMPARISON: None [facility] [employer] Other XR chest 2V* The lungs are hyperinflated. There are minor chronic changes. There is no focal parenchymal [facility] [employer] Other XR chest 2V* consolidation, effusion or pneumothorax. The cardiac, hilar and mediastinal silhouettes are within [facility] [employer] Other XR chest 2V* normal limits. There is no vascular congestion. The visualized bony thorax is intact. Endplate [facility] [employer] Other XR chest 2V* spurring is present. No rt [employer] Other XR chest 2V* XR/XR chest 2V* [facility] [employer] Other XR chest 2V* IMPRESSION: [facility] [employer] Other XR chest 2V* OBSTRUCTIVE LUNG DISEASE. [facility] Other XR chest 2V* NO ACUTE CARDIOPULMONARY ABNORMALITY. [facility] Other XR chest 2V* Impression dictated by: Keyonna Head M.D.05/31/2022 1:14 PM [facility] Other XR chest 2V* Dictation Location: [place] [address] [facility] Other XR chest 2V* Transcribed By: LAUREEN 05/31/22 1314 [facility] Other XR chest 2V* Dictated By: Keyonna Head MD 05/31/22 1313 [facility] Other XR chest 2V* Signed By: [facility] Other XR chest 2V* 05/31/22 1314 [facility] [employer] Other COVID Quick Testingon 2021 Result Positive [facility] [employer] Other XR CSPINE 2_3 VIEWSon 2021 XR [...] paraspinous abnormality is seen. OTHER: Negative. 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 COVID Quick Testingon 2020 Result Negative [facility] [employer] Other Vital Signs Date Time Vital Sign Value Performing Clinician Facility 01-19-2025 15:0400 Body height 160 cm Vendavo DO Work Phone: [facility] 01-19-2025 15:190400 Body mass index (BMI) [Ratio] 24.1 kg/m2 Vendavo DO Work Phone: [facility] 01-19-2025 15:040 Body temperature 98.01 [degF] Rohith Furlong DO Work Phone: [facility] 01-19-2025 15:19-0400 Body weight 61.69 kg Rohith Furlong DO Work Phone: [facility] 01-19-2025 15:19-0400 Diastolic blood pressure 82 mm[Hg] Rohith Furlong DO Work Phone: [facility] 01-19-2025 15:19-0400 Heart rate 94 /min Rohith Furlong DO Work Phone: [facility] 01-19-2025 15:19-0400 Respiratory rate 18 /min Rohith Furlong DO Work Phone: [facility] 01-19-2025 15:19-0400 SaO2% (BldA) [Mass fraction] 93 % Rohith Furlong DO Work Phone: [facility] 01-19-2025 15:19-0400 Systolic blood pressure 124 mm[Hg] Rohith Furlong DO Work Phone: [facility] 02-22-2024 11:04-0400 Body height 160 cm Rohith Furlong DO Work Phone: [facility] 02-22-2024 11:04-0400 Body mass index (BMI) [Ratio] 23.24 kg/m2 Rohith Furlong DO Work Phone: [facility] 02-22-2024 11:04-0400 Body temperature 97.81 [degF] Rohith Furlong DO Work Phone: [facility] 02-22-2024 11:04-0400 Body weight 59.51 kg Rohith Furlong DO Work Phone: [facility] 02-22-2024 11:04-0400 Diastolic blood pressure 58 mm[Hg] Rohith Furlong DO Work Phone: [facility] 02-22-2024 11:04-0400 Heart rate 79 /min Rohith Furlong DO Work Phone: [facility] 02-22-2024 11:04-0400 Respiratory rate 18 /min Rohith Furlong DO Work Phone: [facility] 02-22-2024 11:04-0400 SaO2% (BldA) [Mass fraction] 96 % Rohith Furlong DO Work Phone: [facility] 02-22-2024 11:04-0400 Systolic blood pressure 118 mm[Hg] Rohith Furlong DO Work Phone: [facility] 09-01-2023 15:20-0400 Body height 160 cm Rohith Furlong DO Work Phone: [facility] 09-01-2023 15:20-0400 Body mass index (BMI) [Ratio] 23.74 kg/m2 Rohith Furlong DO Work Phone: [facility] 09-01-2023 15:20-0400 Body temperature 98.4 [degF] Rohith Furlong DO Work Phone: [facility] 09-01-2023 15:20-0400 Body weight 60.78 kg Rohith Furlong DO Work Phone: [facility] 09-01-2023 15:20-0400 Diastolic blood pressure 72 mm[Hg] Rohith Furlong DO Work Phone: [facility] 09-01-2023 15:20-0400 Heart rate 82 /min Rohith Furlong DO Work Phone: [facility] 09-01-2023 15:20-0400 Respiratory rate 18 /min Rohith Furlong DO Work Phone: [facility] 09-01-2023 15:20-0400 SaO2% (BldA) [Mass fraction] 94 % Rohith Furlong DO Work Phone: [facility] 09-01-2023 15:20-0400 Systolic blood pressure 110 mm[Hg] Rohith Furlong DO Work Phone: [facility] 07-31-2023 10:55-0500 Body height 160 cm Rohith Furlong DO Work Phone: [facility] 07-31-2023 10:55-0500 Body mass index (BMI) [Ratio] 23.38 kg/m2 Rohith Furlong DO Work Phone: [facility] 07-31-2023 10:55-0500 Body temperature 97.9 [degF] Rohith Furlong DO Work Phone: [facility] 07-31-2023 10:55-0500 Body weight 59.88 kg Rohith Furlong DO Work Phone: [facility] 07-31-2023 10:55-0500 Diastolic blood pressure 70 mm[Hg] Rohith Furlong DO Work Phone: [facility] 07-31-2023 10:55-0500 Heart rate 100 /min Rohith Furlong DO Work Phone: [facility] 07-31-2023 10:55-0500 SaO2% (BldA) [Mass fraction] 95 % Rohith Furlong DO Work Phone: [facility] 07-31-2023 10:55-0500 Systolic blood pressure 120 mm[Hg] Rohith Furlong DO Work Phone: [facility] 06-15-2023 15:31-0500 Body height 160 cm Anais Muñoz APRN-COLD WORKING SUPERVISOR Work Phone: [facility] 06-15-2023 15:31-0500 Body mass index (BMI) [Ratio] 24.13 kg/m2 Anais Muñoz APRN-COLD WORKING SUPERVISOR Work Phone: [facility] 06-15-2023 15:31-0500 Body temperature 97.81 [degF] Anais MORANCOLD WORKING SUPERVISOR Work Phone: [facility] 06-15-2023 15:31-0500 Body weight 61.78 kg Anais MORANCOLD WORKING SUPERVISOR Work Phone: [facility] 06-15-2023 15:31-0500 Diastolic blood pressure 60 mm[Hg] Anais MORANCOLD WORKING SUPERVISOR Work Phone: [facility] 06-15-2023 15:31-0500 Heart rate 81 /min Anais MORANCOLD WORKING SUPERVISOR Work Phone: [facility] 06-15-2023 15:31-0500 SaO2% (BldA) [Mass fraction] 94 % Anais MORANCOLD WORKING SUPERVISOR Work Phone: [facility] 06-15-2023 15:31-0500 Systolic blood pressure 110 mm[Hg] Anais MORANCOLD WORKING SUPERVISOR Work Phone: [facility] 05-31-2022 13:30-0500 Body height 160.02 cm Janice Rahman Other [facility] [employer] Other 05-31-2022 13:30-0500 Body mass index (BMI) [Ratio] 26.04 kg/m2 Janice Rahman Other [facility] Other 05-31-2022 13:30-0500 Body temperature 97.8 [degF] Janice Lacey Other [facility] [employer] Other 05-31-2022 13:30-0500 Body weight 66.68 kg Janice Rahman Other [facility] Other 05-31-2022 13:30-0500 Diastolic blood pressure 74 mm[Hg] Janice Rahman Other [facility] Other 05-31-2022 13:30-0500 Respiratory rate 18 /min Janice Dixonmond Other [facility] [employer] Other 05-31-2022 13:30-0500 SaO2% (BldA) [Mass fraction] 98 % Janice Lacey Other [facility] Other 05-31-2022 13:30-0500 Systolic blood pressure 118 mm[Hg] Janice Lacey Other [facility] Other 11-30-2021 15:35-0400 Body height 160.02 cm Janice Lacey Other [facility] Other 11-30-2021 15:35-0400 Body mass index (BMI) [Ratio] 25.68 kg/m2 Janice Lacey Other [facility] Other 11-30-2021 15:35-0400 Body temperature 97.7 [degF] Janice Lacey Other [facility] Other 11-30-2021 15:35-0400 Body weight 65.77 kg Janice Lacey Other [facility] Other 11-30-2021 15:35-0400 Respiratory rate 18 /min Janice Lacey Other [facility] [employer] Other 11-30-2021 15:35-0400 SaO2% (BldA) [Mass fraction] 96 % Janice Lacey Other [facility] [employer] Other Encounters Encounter Date Encounter Type Care Provider Facility Start: 01-19-2025 End: 01-19-2025 Patient encounter status Rohith Archer DO Work Phone: [facility] Start: 01-19-2025 End: 01-19-2025 Periodic preventive med est patient 40-64yrs Rohith Archer DO Work Phone: [facility] Comment on above: Well adult exam (Whitney anais Dx); Chronic obstructive pulmonary disease, unspecified COPD type (CMS-HCC); Pain in both lower extremities; Chronic bilateral low back pain without sciatica; Acute pain of left shoulder; Ex-cigarette smoker; Need for shingles vaccine Start: 01-19-2025 End: 01-19-2025 ambulatory [facility] Start: 01-19-2025 Encounter for genera l adult medical examination without abnormal findings [facility] Start: 04-14-2024 End: 04-14-2024 ambulatory Eveline Ozuna MD Facility[facility] Start: 03-24-2024 End: 03-24-2024 ambulatory Eveline Ozuna MD Facility:[facility] Start: 03-10-2024 End: 03-10-2024 ambulatory Eveline Ozuna MD Facility:[facility] Start: 02-26-2024 End: 02-28-2024 Evaluation and management of inpatient Rohith Archer DO Facility:[facility] Start: 02-24-2024 End: 02-24-2024 Orders Only Rohith Archer DO Work Phone: [facility] Comment on above: Lung nodule, solitar y (Primary Dx) Start: 02-22-2024 End: 02-22-2024 Office outpatient visit 15 minutes Rohith Archer DO Work Phone: [facility] Comment on above: Pre-op evaluation (P rimary Dx); Chronic obstructive pulmonary disease, unspecified COPD type (CMS-HCC); Rectal prolapse Start: 02-22-2024 End: 02-22-2024 Preprocedural examination done Rohith Archer DO Work Phone: [facility] Work Phone: Start: 02-22-2024 End: 02-22-2024 ambulatory STRATHMERE Mario [facility] Start: 02-18-2024 End: 02-18-2024 ambulatory [facility] Start: 02-16-2024 End: 02-16-2024 ambulatory [facility] Facility[facility] Start: 02-09-2024 End: 02-09-2024 ambulatory Eveline Ozuna MD Facility:[facility] Start: 02-04-2024 End: 02-04-2024 [facility] Start: 09-01-2023 End: 09-02-2023 ambulatory [facility] Start: 09-01-2023 Encounter for genera l adult medical examination without abnormal findings [facility] Start: 09-01-2023 End: 09-01-2023 Patient encounter status Rohith Archer DO Work Phone: [facility] Work Phone: Start: 09-01-2023 End: 09-01-2023 Periodic preventive med est patient 40-64yrs Rohith Archer DO Work Phone: [facility] Comment on above: Well adult health ch bobby (Primary Dx); Thoracic region somatic dysfunction; Ex-cigarette smoker; Encounter for screening mammogram for malignant neoplasm of breast; Myalgia Start: 08-07-2023 Orders Only Anais Muñoz PLASTIC BLOCK BOILER RELINER-COLD WORKING SUPERVISOR Work Phone: [facility] Comment on above: Rib pain on right si de (Primary Dx) Start: 07-31-2023 End: 07-31-2023 Office outpatient visit 15 minutes Rohith Archer DO [facility] Comment on above: Acute pain of left s houlder (Primary Dx) Start: 07-17-2023 End: 07-18-2023 ambulatory [facility] Start: 07-01-2023 Orders Only Anais Muñoz PLASTIC BLOCK BOILER RELINER-COLD WORKING SUPERVISOR Work Phone: [facility] Comment on above: Other chest pain (Pr imary Dx); Ventricular premature depolarization Start: 06-29-2023 End: 06-30-2023 ambulatory SARAY Donato [facility] Start: 06-17-2023 Orders Only Anais Muñoz PLASTIC BLOCK BOILER RELINER-COLD WORKING SUPERVISOR Work Phone: [facility] Comment on above: Other chest pain (Pr imary Dx) Acute chest wall erwin n (Primary Dx) Start: 06-15-2023 End: 06-15-2023 Office outpatient visit 15 minutes Anais Muñoz PLASTIC BLOCK BOILER RELINER-COLD WORKING SUPERVISOR Work Phone: [facility] Comment on above: Acute chest wall erwin n (Primary Dx) Start: 05-30-2023 Refill Rohith gramajo DO Work Phone: [facility] Comment on above: Mixed hyperlipidemia Start: 01-14-2023 End: 01-15-2023 ambulatory Rohit YEH Facility:CD:[id number] Start: 12-16-2022 End: 12-17-2022 ambulatory ROHITH ARCHER Facility:[facility] Start: 11-27-2022 ambulatory ROHITH ARCHER Facility :[facility] Start: 09-29-2022 End: 09-30-[address] ROHITH ARCHER Facility:[facility] Start: 05-31-2022 End: 05-31-2022 ambulatory Janice Rahman Facility:[facility] Start: 05-31-2022 Office outpatient vi sit 25 minutes Jaince Rahman [facility] Start: 05-31-2022 End: 05-31-2022 ambulatory DO Rohith Archer Work Phone: [facility] Work Phone: Start: 05-31-2022 End: 05-31-2022 Patient encounter procedure DO Rohith Furlong Work Phone: [facility] Work Phone: Start: 11-30-2021 End: 11-30-2021 ambulatory Janicekaylee Rahman Other [facility] [employer] Other Start: 11-30-2021 Office outpatient vi sit 15 minutes Janice Lacey [facility] Start: 10-12-2021 End: 10-13-[address] ROHITH ARCHER Facility:[facility] Start: 04-17-2021 End: 04-17-2021 ambulatory Janice Rahman Other [facility] [employer] Other Start: 04-17-2021 Office outpatient vi sit [...] Start: 02-22-2024 Adult depression scr eening assessment Orhith Furlong DO Work Phone: Start: 10-06-2023 Mammography Rohith Fur long DO Work Phone: Start: 09-01-2023 Adult depression scr eening assessment Rohith Furlong DO Work Phone: Start: 07-31-2023 Adult depression scr eening assessment Rohith Furlong DO Work Phone: Start: 06-15-2023 Ecg routine ecg w/le ast 12 lds w/i&r Anais Muñoz PLASTIC BLOCK BOILER RELINER-COLD WORKING SUPERVISOR Work Phone: Start: 06-15-2023 Adult depression scr eening assessment Anais Muñoz PLASTIC BLOCK BOILER RELINER-COLD WORKING SUPERVISOR Work Phone: Start: 01-14-2023 Colonoscopy Rohith Fur long DO Work Phone: Start: 12-08-2022 Adult depression scr eening assessment Rohith Furlong DO Work Phone: Start: 05-31-2022 Plain chest X-ray DO De nnis Furlong Work Phone: Plan of Treatment Date Care Activity Detail Author Start: 01-14-2033 Screening for malign ant neoplasm of colon Colonoscopy [facility] Start: 03-22-2029 DTaP,Tdap and Td Vaccines (2 - Td or Tdap) DTaP,Tdap and Td Vaccines (2 - Td or Tdap) [facility] Start: 01-19-2026 Adult BMI Screening Adult BMI Screen ing [facility] Start: 01-19-2026 Depression Screening Depression Scre ening [facility] Start: 01-19-2026 Tobacco Screening Tobacco Screening [facility] Start: 12-15-2025 Screening for malign ant neoplasm of breast Mammogram [facility] Start: 03-16-2025 Administration of varicella zoster vaccine Zoster (Shingles) Vaccine (2 of 2) [facility] Start: 02-21-2025 Adult BMI Screening Adult BMI Screen ing [facility] Start: 02-21-2025 Depression Screening Depression Scre ening [facility] Start: 02-21-2025 Tobacco Screening Tobacco Screening [facility] Start: 02-03-2025 End: 02-03-2025 Patient encounter procedure 02/03/2025 3:30 PM EDT Appointment [facility] [address] [place] [id number] [facility] Start: 02-03-2025 End: 02-03-2025 Patient encounter procedure 02/03/2025 1:30 PM EDT Appointment [facility] [address] [place] [address] [facility] Start: 01-23-2025 Influenza vaccination Influenza Vacc ine [facility] Start: 01-19-2025 End: 01-19-2026 CT Chest for screening WO contrast CT low dose lung screening (Annual) Imaging Routine Ex-cigarette smoker Expected: 01/19/2025, Expires: 01/19/2026 Georgina Goodman Work Phone: Comment on above: Expected: 01/19/2025 , Expires: 01/19/2026 Start: 01-19-2025 End: 01-19-2026 US.doppler Extremity arteries - bilateral for physiologic artery study limited Vas art doppler lwr limited single Vascular Ultrasound Routine Pain in both lower extremities Expected: 01/19/2025, Expires: 01/19/2026 [facility] Comment on above: Expected: 01/19/2025 , Expires: 01/19/2026 Start: 01-19-2025 End: 01-19-2026 US.doppler Lower extremity artery - bilateral Vas art duplex lwr bilateral Vascular Ultrasound Routine Pain in both lower extremities Expected: 01/19/2025, Expires: [facility]19[facility]2026 [facility] Comment on above: Expected: 01/19/2025 , Expires: 01/19/2026 Start: 01-19-2025 End: 01-19-2026 XR Lumbar spine 2 or 3 Views X-ray spine lumbar 2 or 3 views Imaging Routine Chronic bilateral low back pain without sciatica Expected: 01/19/2025, Expires: 01/19/2026 [facility] Comment on above: Expected: 01/19/2025 , Expires: 01/19/2026 Start: 01-19-2025 End: 01-19-2026 XR Shoulder - left 2 Views X-ray shoulder left minimum 2 views Imaging Routine Acute pain of left shoulder Expected: 01/19/2025, Expires: 01/19/2026 [facility] Comment on above: Expected: 01/19/2025 , Expires: 01/19/2026 Start: 10-05-2024 Screening for malign ant neoplasm of breast Mammogram [facility] Start: 08-31-2024 Adult BMI Screening Adult BMI Screen ing [facility] Start: 08-31-2024 Depression Screening Depression Scre ening [facility] Start: 08-31-2024 Tobacco Screening Tobacco Screening [facility] Start: 07-30-2024 Adult BMI Screening Adult BMI Screen ing [facility] Start: 07-30-2024 Depression Screening Depression Scre ening [facility] Start: 07-30-2024 Tobacco Screening Tobacco Screening [facility] Start: 06-29-2024 Adult BMI Screening Adult BMI Screen ing [facility] Start: 06-15-2024 Adult BMI Screening Adult BMI Screen ing [facility] Start: 06-15-2024 Depression Screening Depression Scre ening [facility] Start: 06-15-2024 Tobacco Screening Tobacco Screening [facility] Start: 05-25-2024 Administration of varicella zoster vaccine Zoster (Shingles) Vaccine (1 of 2) [facility] Comment on above: Postponed from 11/16 (Patient Refused) Start: 05-25-2024 COVID-19 Vaccine ( season) COVID-19 Vaccine ( season) [facility] Comment on above: Postponed from 01/23 (Patient Refused) Start: 02-24-2024 End: 02-23-2025 CT Chest limited W contrast IV CT chest with contrast Imaging Routine Lung nodule, solitary Expected: 02/24/2024, Expires: 02/23/2025 [facility] Work Phone: Comment on above: Expected: 02/24/2024 , Expires: 02/23/2025 Start: 01-24-2024 COVID-19 Vaccine ( season) COVID-19 Vaccine ( season) [facility] Start: 01-24-2024 COVID-19 Vaccine ( season) COVID-19 Vaccine ( season) [facility] Start: 01-24-2024 Influenza vaccination Influenza Vacc ine [facility] Start: 12-09-2023 Adult BMI Screening Adult BMI Screen ing [facility] Start: 12-09-2023 Depression Screening Depression Scre ening [facility] Start: 12-09-2023 Tobacco Screening Tobacco Screening [facility] Start: 09-01-2023 End: 09-01-2023 Patient encounter procedure 09/01/2023 3:30 PM EDT Office Visit [facility] Internal Medicine - Family Medicine [address] [place] [address] Rohith Archer, DO [address], [place] [address] [facility] - [facility] Start: 09-01-2023 End: 08-31-2024 CT Chest for screening WO contrast CT low dose lung screening (Annual) Imaging Routine Ex-cigarette smoker Expected: 09/01/2023, Expires: 08/31/2024 Georgina Goodman Work Phone: Comment on above: Expected: 09/01/2023 , Expires: 08/31/2024 Start: 09-01-2023 End: 08-31-2024 DBT Breast - bilateral screening Mammography screening bilateral with CAD Imaging Routine Encounter for screening mammogram for malignant neoplasm of breast Expected: 09/01/2023, Expires: 08/31/2024 [facility] [employer] Comment on above: Expected: 09/01/2023 , Expires: 08/31/2024 Start: 07-31-2023 End: 07-30-2024 XR Shoulder - left 2 Views X-ray shoulder left minimum 2 views Imaging Routine Acute pain of left shoulder Expected: 07/31/2023, Expires: 07/30/2024 [employer] Phone: Comment on above: Expected: 07/31/2023 , Expires: 07/30/2024 Start: 07-01-2023 End: 07-01-2024 Echo stress treadmill W/O contrast Echo stress treadmill W/O contrast Cardiac Services Routine Other chest pain Ventricular premature depolarization Expected: 07/01/2023, Expires: 07/01/2024 Georgina Goodman Work Phone: Comment on above: Expected: 07/01/2023 , Expires: 07/01/2024 Start: 06-17-2023 End: 06-17-2024 Exercise stress test study Stress test (exercise only) Cardiac Services Routine Other chest pain Expected: 06/17/2023, Expires: 06/17/2024 [employer] [facility] [employer] Work Phone: Comment on above: Expected: 06/17/2023 , Expires: 06/17/2024 Start: 06-15-2023 End: 06-15-2024 XR Ribs - left Views and Chest PA X-ray ribs left 3 views with pa chest Imaging Routine Acute chest wall pain Expected: 06/15/2023, Expires: 06/15/2024 [employer] Work Phone: Comment on above: Expected: 06/15/2023 , Expires: 06/15/2024 Start: 01-23-2023 COVID-19 Vaccine ( season) COVID-19 Vaccine ( season) [facility] Start: 01-23-2023 Influenza vaccination Influenza Vacc ine [facility] Start: 2010 Administration of varicella zoster vaccine Zoster (Shingles) Vaccine (1 of 2) [facility] Start: 2000 Screening for malign ant neoplasm of breast Mammogram [facility] Start: 1981 Screening for malign ant neoplasm of cervix Pap Smear [facility] End: 02-23-2025 Creatinine includes GFR, serum Creatinine includes GFR, serum Lab Routine Lung nodule, solitary 1 Occurrences starting 02/24/2024 until 02/23/2025 [facility] Comment on above: 1 Occurrences starti ng 02/24/2024 until 02/23/2025 Immunizations Immunization Date Immunization Notes Care Provider Greg marquez 01-19-2025 zoster vaccine recombinant Rohith Archer DO Work Phone: [facility] 01-19-2025 Immunization, In Clinic,; Translations: [Drug or medicament (substance)] Rohith Jayaedwardo DO Work Phone: [facility] 01-19-2025 zoster vaccine, unspecified formulation Rohith Furlong DO Work Phone: [facility] 03-22-2019 Influenza, injectabl e, Madin Selina Canine Kidney, quadrivalent with preservative Rohith Furlong DO Work Phone: [facility] 03-22-2019 tetanus toxoid, redu jenn diphtheria toxoid, and acellular pertussis vaccine, adsorbed Rohith Furlong DO Work Phone: [facility] 03-22-2019 influenza virus vaccine, unspecified formulation Rohith Furlong DO Work Phone: [facility] Payers Date Payer Category Payer Self-pay [id number] 2016 Commercial Managed C are - POS [employer] [id number] 2016 Private Health Insurance 1960 Unknown [id number] 9.2.593 1960 Unknown [id number] 2.840.1.224824.3.57 9.2.593 1960 Unknown [id number] 2.840.1.095376.3.57 9.2.727 1960 Unknown [id number] 2.16.840.1.144003.3.57 9.2.727 1960 Unknown [id number] 2.16.840.1.929821.3.57 9.2.1286 1960 Unknown [id number] 2.16.840.1.758735.3.57 9.2.1286 1960 Unknown [id number] 2.16.840.1.930559.3.57 9.2.128 1960 Unknown [id number] 2.16.840.1.830617.3.57 9.2.196 1960 Unknown [id number] 2.16.840.1.667969.3.57 9.2.196 1960 Unknown [id number] 2.16.840.1.619809.3.57 9.2.196 1960 Unknown [id number] 2.16840.1.483933.3.57 9.2.196 1960 Unknown [id number] 2.16.840.1.721573.3.57 9.2.196 1960 Unknown [id number] 2.16.840.1.208389.3.57 9.2.196 1960 Unknown [id number] 2.16.840.1.611392.3.57 9.2.196 1960 Unknown [id number] 2.16.840.1.559838.3.57 9.2.196 1960 Unknown [id number] 2.16.840.1.019270.3.57 9.2.196 1960 Unknown [id number] 2.16.840.1.483886.3.57 9.2.196 1960 Unknown [id number] 2.16.840.1.001112.3.57 9.2.196 1960 Unknown [id number] 2.16.840.1.556686.3.57 9.2.128 1960 Unknown [id number] 2.16.840.1.254256.3.57 9.2.1286 1959 Private Health Insurance [id number] Private Health Insurance [id number] 2.16.840.1.503558.19 Unknown [id number] 2.16.840.1.532416.3.57 9.2.531 Social History Date Type Detail Facility Unknown if ever smoked [facility] Other Start: 08-25-2022 End: 09-01-2023 Sex Assigned At [facility] Other Start: 1960 Sex Assigned At Female [facility] Start: 08-25-2022 End: 02-22-2024 Tobacco smoking status NHIS Ex-smoker [facility] Start: 11-17-1973 End: 11-28-2020 History of tobacco use Current smoker [facility] Start: 11-17-1973 End: 11-28-2020 History of tobacco use Cigarette Smoker [facility] Start: 08-25-2022 End: 09-01-2023 Cigarettes smoked current (pack per day) - Reported 1 [facility] Start: 08-25-2022 End: 02-22-2024 Tobacco use and exposure Smokeless tobacco non-user [facility] Start: 01-22-2023 End: 01-19-2025 Alcohol intake Lifetime non-drinker (finding) [facility] Do you belong to any clubs or organizations such as nondenominational groups, unions, fraternal or athletic groups, or school groups? No [facility] Are you now , , , , never or living with a partner? Never [facility] How often to you hav e a drink containing alcohol? Never [facility] How many standard dr inks containing alcohol do you have on a typical day? Patient does not drink [facility] Do you feel stress - tense, restless, nervous, or anxious, or unable to sleep at night because your mind is troubled all the time - these days [OSQ] Only a little [facility] Start: 1960 Sex Assigned At Not on file [facility] Start: 12-26-2014 [facility] 04-17-2021 to 01-19-2025 Rohith Archer, DO - 01/19/2025 3:15 PM EDTRohith Archer, DO - 02/22/2024 11:00 AM EDTRohith Archer, DO - 09/01/2023 3:30 PM EDTMary Candice Muñoz, PLASTIC BLOCK BOILER RELINER- COLD WORKING SUPERVISOR - 08/07/2023 12:21 PM EDT Note Date [...] check electrolytes. Continue with pickle juice an sluy-omd-lhxeeao supplements for leg cramps. Ensure adequate hydration. Chronic bilateral low back pain without sciatica - X-ray spine lumbar 2 or 3 views; Future She is having chronic low back pain without any imaging thumb going to check an x-ray of her lumbar spine. Consider pain management, physical therapy. Can try lepm-qws-[id number] analgesics Acute pain of left shoulder - X-ray shoulder left minimum 2 views; Future Symptoms seem to be consistent with impingement syndrome possibly rotator cuff injury. Try shoulder exercises. Consider cortisone injections, physical therapy. Check x-ray of left shoulder We will recheck in 1 year but she can come back sooner for further management of her shoulder and back pain. Bruno Serrato, MS3 [facility] documented in this encounter [facility] 02-29-2024 Note Subjective Patient feels well had [...] Auto 7.4 % (Low) 02/27/2024 04:54 EDT [place] Auto 9.5 % 02/28/2024 04:54 EDT [place] Auto 7.8 % 02/27/2024 04:54 EDT Eos Auto 0.8 % 02/28/2024 04:54 EDT Eos Auto 0.0 % 02/27/2024 04:54 EDT Basophil Auto 0.8 % 02/28/2024 04:54 EDT Basophil Auto 0.3 % 02/27/2024 04:54 EDT Neutro Absolute 5.3 x10 Neutro Absolute 9.9 x10 Lymph Absolute 2.2 x10 Lymph Absolute 0.9 x10 [place] Absolute 0.8 x10 [place] Absolute 0.9 x10 Eos Absolute 0.1 x10 [...] Senait RODRÍGUEZ, Iván Kimble 03/02/24 10:56 EDT [facility] 02-26-2024 Note Clinical Information Procedure: [...] colon, removed for repair of rectal prolapse. [id number] Markie Garcia MD PhD (Electronically signed by) Verified: 03/02/24 14:20 [facility] Comment on above: Performed By: #### S IA #### [facility] (DEFAULT) [address] [place] [address] 02-22-2024 History of Present illness Narrative Subjective [...] chest pain like when she goes to [employer] [place] [employer] [place]. She had pre-surgical testing last week. [...] Head: Normocephalic. Nose: Nose normal. Mouth/Throat: Lips: [facility]. Mouth: Mucous membranes are moist. Dentition: Has [...] surgeon for treatment. documented in this encounter [facility] 09-01-2023 History of Present illness Narrative Subjective [...] ear normal. Nose: Nose normal. Mouth/Throat: Lips: [facility]. Mouth: Mucous membranes are moist. Pharynx: Oropharynx [...] total) before bedtime. documented in this encounter [facility] 08-07-2023 History of Present illness Narrative Spoke [...] Casey 08/07/23 1226 documented in this encounter [facility] 07-31-2023 History of Present illness [...] Negative empty can test. Equivocal impingement sign ezagt-[id number]-Nwybdqo and Neer's test. Negative Adson's test. Neurological: [...] Shoulder exercises given. [facility] History of Present illness Narrative Subjective [...] Casey 06/15/23 1741 documented in this encounter [facility] 12-16-2022 Note Chief Complaint consultation [...] Recorded SARS-CoV-2 (COVID-19) mRNA-1273 vaccine 09/20/2020 Recorded [facility] Comment on above: Result Comment: Elec [...] May, Right-sided chest pain (ICD-10 - R07.9) [employer] Other 07-09-2022 Evaluation note* Encounter Date Diagnosis [...] Patient care instructions given in writing by [facility] document. [employer] Other 11-24-2021 Evaluation note* Encounter Date Diagnosis [...] Patient care instructions given in writting by [facility] document. [employer] Other evaluation noteNo assessment information available [facility] Work Phone: evaluation note* Diagnosis Mixed hyperlipidemia documented in this encounter [facility]* Diagnosis Acute chest wall pain- Primary [facility] this encounter [facility]* Diagnosis Other chest pain- Primary [facility] in this encounter [facility]* Diagnosis Acute chest wall pain- Primary documented in this encounter [facility]* Diagnosis Other chest pain- Primary Ventricular premature depolarization Other premature beats documented in this encounter [facility]* Diagnosis Acute pain of left shoulder- Primary documented in this encounter [facility]* Diagnosis Rib pain on right side- Primary documented in this encounter [facility]* Diagnosis Well adult health check- Primary Unspecified general medical examination Thoracic region somatic dysfunction Nonallopathic lesion of thoracic region, not elsewhere classified Ex-cigarette smoker Personal history of tobacco use, presenting hazards to health Encounter for screening mammogram for malignant neoplasm of breast Myalgia Unspecified myalgia and myositis documented in this encounter [facility]* Diagnosis Pre-op evaluation- Primary Chronic obstructive pulmonary disease, unspecified COPD type ([facility]) Rectal prolapse documented in this encounter [facility]* Diagnosis Lung nodule, solitary- Primary documented in this encounter [facility]* Diagnosis Well adult exam- Primary [...] inoculation against varicella documented in this encounter [facility] general Narrative - Reported* Type Description Date Surgical History tonsillectomy Surgical History cholecystectomy Surgical History tubal ligation Surgical History cyst removal from neck Hospitalization History see above [employer] Other InstructionsNot on filedocumented in this encounter [facility] SystemInstructionsNot on filedocumented in this encounter [facility] SystemInstructionsNot on filedocumented in this encounter [facility] SystemInstructionsNot on filedocumented in this encounter [facility] SystemInstructions* Attachments The following attachments cannot be sent through Care Everywhere. * Rotator Cuff Tendinitis Stretching Exercises (Maltese) * Shoulder Bursitis Exercises (Maltese) [facility] SystemInstructionsNot on file documented in this encounterProBelle[facility] [email or web address] SystemInstructionsNot on file documented in this [facility] SystemInstructionsNot on file documented in this [facility] SystemInstructionsNot on file documented in [facility] Advance Directives No Advanced Directives Records [...] contrast JayaRohith brooke, DO [address] [facility] [place] [address] Referral ID Status Reason Start Date Expiration Date V isits Requested Visits Authorized [id number] Pending Review 02/24/2024 02/23/2025 1 1 Specialty Diagnoses / Procedures Referred By Contac t Referred To Contact Diagnoses Ex-cigarette smoker Procedures CT low dose lung screening (Annual) Rohith Archer, DO [address], [facility] [place] [id number] Referral ID Status Reason Start Date Expiration Date V isits Requested Visits Authorized [id number] Pending Review 09/01/2023 08/31/2024 1 1 Specialty Diagnoses / Procedures Referred By Contac t Referred To Contact Diagnoses Other chest pain Ventricular premature depolarization Procedures Echo stress treadmill W/O contrast Anais Muñoz, PLASTIC BLOCK BOILER RELINER-COLD WORKING SUPERVISOR [address] [place] [address] Referral ID Status Reason Start Date Expiration Date V isits Requested Visits Authorized [id number] Pending Review 07/01/2023 06/30/2024 5 5 Specialty Diagnoses / Procedures Referred By Contac t Referred To Contact Diagnoses Other chest pain Procedures Stress test (exercise only) nAais Muñoz, PLASTIC BLOCK BOILER RELINER-COLD WORKING SUPERVISOR [address] [place] [address] Referral ID Status Reason Start Date Expiration Date V isits Requested Visits Authorized [id number] Pending Review 06/17/2023 06/16/2024 5 5 Additional [...] Rohith Archer DO Primary Care Provider Active Heavy Equipment Rental Associate Relationship Specialty Start Date End Date Rohith Archer DO [address] [place] [address] PCP - General Family Medicine 06/02/22 Heavy Equipment Rental Associate Relationship Specialty Start Date End Date Rohith Archer DO [address] [place] [address] PCP - General Family Medicine 06/02/22 Heavy Equipment Rental Associate Relationship Specialty Start Date End Date Rohith Archer DO [address] [place] [address] PCP - General Family Medicine 06/02/22 Heavy Equipment Rental Associate Relationship Specialty Start Date End Date Rohith Archer DO [address] [place] [address] PCP - General Family Medicine 06/02/22 Heavy Equipment Rental Associate Relationship Specialty Start Date End Date Rohith Archer DO [address] [place] [address] PCP - General Family Medicine 06/02/22 Heavy Equipment Rental Associate Relationship Specialty Start Date End Date Rohith Archer DO [address], [place] [address] PCP - General Family Medicine 06/02/22 Heavy Equipment Rental Associate Relationship Specialty Start Date End Date Rohith Archer DO [address], [place] [address] PCP - General Family Medicine 06/02/22 Heavy Equipment Rental Associate Relationship Specialty Start Date End Date Rohith Archer DO [address], [place] [address] PCP - General Family Medicine 06/02/22 Heavy Equipment Rental Associate Relationship Specialty Start Date End Date Rohith Archer DO [address], [place] [address] PCP - General Family Medicine 06/02/22 Heavy Equipment Rental Associate Relationship Specialty Start Date End Date Rohith Archer DO [address], [place] [address] PCP - General Family Medicine 06/02/22 Goals (unrecognized section and content) Goals may be documented in a n alternate section INFORMATION SOURCE (unrecogn ized section and content) DATE CREATED AUTHOR 06/18/2022 [facility] DATE CREATED AUTHOR AUTHOR'S ORGANIZ ATION 10/03/[address] [facility] DATE CREATED AUTHOR AUTHOR'S ORGANIZ ATION 01/22/2023 [facility] DATE CREATED AUTHOR AUTHOR'S ORGANIZ ATION 07/24/2023 [facility] DATE CREATED AUTHOR AUTHOR'S ORGANIZ ATION 09/03/2023 [facility] DATE CREATED AUTHOR AUTHOR'S ORGANIZ ATION 04/18/2024 [facility] DATE CREATED AUTHOR AUTHOR'S ORGANIZ [...] BE BASED ON THE PRIMARY CLINICAL RECORDS. [employer] [facility]. provides no warranty or guarantee of the accuracy or completeness of information in this document.
== END 2025-01-27 14:49 | disposition home or self-care (01) ==
LOC: US 14:48
PROVIDERS: PCP Family Medicine; Visit Provider Family Medicine
DX: M79.604 Pain in right leg (principal); M79.605 Pain in left leg; Z87.891 Personal history of nicotine dependence
CPT/HCPCS: 71271; 93925

== ENCOUNTER 2025-02-01 14:54 | Outpatient (OUT) | payer OTHER, SELFPAY ==
--- OUTSIDE RECORDS SUMMARY | 2025-01-19 15:15 | XMS_ITS | Encounter Summary ---
Author Organization [employer] tem Address [id number] [address] [place] [address] Care Team Providers Care Box Bender Name Role Phone Rohith Archer DO Primary Care Provider [phone] Reason for Referral * Diagnostic Imaging (Routine) - Pending Review Specialty Diagnoses / Procedures Referred By Julianna mcleod Referred To Contact Diagnoses Ex-cigarette smoker Procedures CT low dose lung screening (Annual) Rohith Archer DO [address], [place] [address] Phone: tel: fax: Referral ID Status Reason Start Date Expiration Date V isits Requested Visits Authorized [id number] Pending Review 01/19/2025 01/19/2026 1 1 Reason for Visit * Reason Comments wellness Encounter Details Date Type Department Care Team (Late st Contact Info) Description 01/19/2025 3:15 PM EDT Office Visit [facility] Internal Medicine - Family Medicine [address] [place] [address] Rohith Archer DO [address], [place] [address] Well adult exam (Primary Dx); Chronic obstructive [...] drink = 0.6 oz pur e alcohol) [facility] Utilities Answer Date Recorded In the [...] often do you attend chur ch or jain services? Never 08/25/2022 Do you belong to [...] Answer Date Recorded Total Score 0 01/19/2025 [facility] of Occupat ional Health - Occupational Stress [...] Recorded Do you need help finding a [employer] center and/or a training program? No 08/25/2022 [...] Chronic obstructive pulmonary disease, unspecified COPD type ([facility]) She has known COPD. She had not [...] check electrolytes. Continue with pickle juice an pacf-dwf-qkjoguf supplements for leg cramps. Ensure adequate hydration. Chronic bilateral low back pain without sciatica - X-ray spine lumbar 2 or 3 views; Future She is having chronic low back pain without any imaging thumb going to check an x-ray of her lumbarspine. Consider pain management, physical therapy. Can try isgl-wzi-icfojjq analgesics Acute pain of left shoulder - X-ray shoulder left minimum 2 views; Future Symptoms seem to be consistent with impingement syndrome possibly rotator cuff injury. Try shoulderexercises. Consider cortisone injections, physical therapy. Check x-ray of left shoulder We will recheck in 1 year but she can come back sooner for further management of her shoulder and back pain. Bruno Serrato, MS3 [facility] of Medicine and Life Sciences documented in this encounter Plan of Treatment Scheduled Orders Name Type Priority Associated Diagnoses Orde r Schedule Vas art doppler lwr limited single Vascular [...] exam documented in this encounter Results * CT low dose lung screening (Annual) (01/31/2025 8:35 AM EDT) Anatomical Region Laterality Modality Body, Lung, Chest, Body Covera C omputed Tomography us Rohith Archer DO IMG CT ORDERABLES Final Resu lt * X-ray shoulder left minimum 2 views (01/27/2025 11:04 AM EDT) Anatomical Region Laterality Modality MSK, Upper Extremities, Shoulder Left Computed Radiography us Rohith Archer DO IMG DIAGNOSTIC IMAGING ORDER [place] Final Result * X-ray spine lumbar 2 or 3 views (01/27/2025 11:02 AM EDT) Anatomical Region Laterality Modality MSK, Neuro, Spine, L-spine N/A Compu earl Radiography us Rohith Archer DO IMG DIAGNOSTIC IMAGING ORDER [place] Final Result * Magnesium (01/19/2025 4:26 PM EDT) [facility] MAGNESIUM 2.1 1.8 - 2.6 mg/dL 01/19/2025 10:31 PM EDT [facility] Blood Venous blood / Unknown 01/19/2025 4:26 PM EDT 01/19/2025 4:27 PM EDT Rohith Archer LAB BLOOD ORDERABLES Final R esult [facility] [address] [place] [address], [place] [phone] * (ABNORMAL) Lipid profile (01/19/2025 4:26 PM EDT) [facility] CHOLESTEROL 242(H) 150 - 200 mg/dL 01/19/2025 10:31 PM EDT [facility] TRIGLYCERIDE 138 27 - 150 mg/dL 01/19/2025 10:31 PM EDT [facility] HDL CHOLESTEROL 37(L) >39 mg/dL 10:31 PM EDT [facility] Comment: HDL <40 mg/dL - High Risk HDL > or = 40mg/dL- Desirable HDL >60 mg/dL - Negative Risk LDL (CALC) 177(H) <130 mg/dL 01/19/2025 10:31 PM EDT [facility] Comment: LDL <100 mg/dL - Desirable LDL >160 mg/dL - High Risk CHOLESTEROL:HDL 6.5(H) 1.0 - 5.0 10:31 PM EDT [facility] VERY LOW LIPOPROTEIN 28 0 - 30 mg/dL 01/19/2025 10:31 PM EDT [facility] Blood Venous blood / Unknown 01/19/2025 4:26 PM EDT 01/19/2025 4:27 PM EDT us Rohith Archer DO LAB BLOOD ORDERABLES Final R esult [facility] [address] [place] [address], [place] [phone] * Comprehensive metabolic panel (01/19/2025 4:26 PM EDT) SODIUM 141 134 - 146 mmol/L 01/19/2025 10:31 PM EDT [facility] POTASSIUM 3.9 3.5 - 5.0 mmol/L 01/19/2025 10:31 PM EDT [facility] CHLORIDE 102 98 - 109 mmol/L 01/19/2025 10:31 PM EDT [facility] CARBON DIOXIDE 28 22 - 32 mmol/L 01/19/2025 10:31 PM EDT [facility] ANION GAP 11 5 - 15 mmol/L 01/19/2025 10:31 PM EDT [facility] BLOOD UREA NITROGEN 15 5 - 27 mg/dL 01/19/2025 10:31 PM EDT [facility] CREATININE 0.68 0.40 - 1.00 mg/dL 01/19/2025 10:31 PM EDT [facility] Comment:METHOD TRACEABLE TO IDMS STANDARD GLUCOSE 99 65 - 99 mg/dL 01/19/2025 10:31 PM EDT [facility] CALCIUM 9.6 8.5 - 10.5 mg/dL 01/19/2025 10:31 PM EDT [facility] TOTAL PROTEIN 7.2 6.0 - 8.0 g/dL 01/19/2025 10:31 PM EDT [facility] ALBUMIN 4.5 3.2 - 5.3 g/dL 01/19/2025 10:31 PM EDT [facility] ALKALINE PHOSPHATASE 88 39 - 130 U/L 01/19/2025 10:31 PM EDT [facility] AST 20 <=41 U/L 01/19/2025 10:31 PM EDT [facility] ALT 15 <=31 U/L 01/19/2025 10:31 PM EDT [facility] BILIRUBIN,TOTAL 0.5 0.3 - 1.2 mg/dL 01/19/2025 10:31 PM EDT [facility] EGFR Non-Race Dependent >90 >=60 ml/min/1.7 3sq.m 01/19/2025 10:31 PM EDT [facility] Comment: Reported eGFR is based on the CKD-EPI 2020 equation that does not use a race coefficient. Blood Venous blood / Unknown 01/19/2025 4:26 PM EDT 01/19/2025 4:27 PM EDT us Rohith Archer DO LAB BLOOD ORDERABLES Final R esult [facility] [address] [place] [address], documented in this encounter Visit Diagnoses Diagnosis Well adult exam- Primary Routine general medical examination at a health care facility Chronic obstructive pulmonary disease, unspecified COPD type ([facility]) Pain in both lower extremities Chronic bilateral [...] documented as of this encounter Care Teams Box Bender Relationship Specialty Start Date End Date Rohith Archer DO [address] [facility] [place] [address] PCP - General Family Medicine 06/02/22 documented as of this encounter
--- OUTSIDE RECORDS SUMMARY | 2025-02-01 14:56 | XMS_ITS | Encounter Summary ---
Author Organization [employer] Address [id number] [address] [place] [address] Care Team Providers Care It Service Continuity Supervisor Name Role Phone JulioRohith gramajo Mario KAPOOR Primary Care Provider [phone] Encounter Details Date Type Department Care Team (Latest Contact Info) Description 01/19/2025 Travel Social History Tobacco Use Types Packs/Day Years Used Date Smoking Tobacco: Former Cigarettes 1 47 0 11/17/1973 - 11/28/2020 Smokeless Tobacco: Never Alcohol Use Standard Drinks/Week Comments Never 0 (1 standard drink = 0.6 oz pur e alcohol) [facility] Utilities Answer Date Recorded In the past 12 months has [email or web address] electric, gas, oil, or water company threatened [...] often do you attend chur ch or yarsani services? Never 08/25/2022 Do you belong to any clubs o r organizations such as taoism groups, unions, fraternal or athletic groups, or [...] Answer Date Recorded Total Score 0 01/19/[address] [facility]ational Stress Questionnaire Answer [...] Recorded Do you need help finding a [facility] and/or a training program? No [...] documented as of this encounter Care Teams It Service Continuity Supervisor Relationship Specialty Start Date End Date Rohith Archer DO [address] [facility] [place] [address] PCP - General Family Medicine 06/02/22 documented as of this encounter
--- OUTSIDE RECORDS SUMMARY | 2025-02-01 14:56 | XMS_ITS | Encounter Summary ---
Author Organization [facility] tem Address [facility] [id number] [address] [place] [address] Care Team Providers Care Bench Worker Name Role Phone Rohith Archer DO Primary Care Provider [phone]- [phone] Encounter Details Date Type Department Care Team (Late st Contact Info) Description 01/23/2025 Results Follow-Up [facility] Internal Medicine - Family Medicine [address] [place] [address] Rohith Archer DO [address], [place] [address] Magnesium, Lipid profile, Comprehensive metabolic panel, Additional followed-up results: 3 Social History Tobacco Use Types Packs/Day Years Used Date Smoking Tobacco: Former Cigarettes 1 47 0 11/17/1973 - 11/28/2020 Smokeless Tobacco: Never Alcohol Use Standard Drinks/Week Comments Never 0 (1 standard drink = 0.6 oz pur e alcohol) [facility] Utilities Answer Date Recorded In the past 12 months has [employer] electric, gas, oil, or water company threatened [...] you attend [facility] or latter-day services? Never 08/25/2022 Do you [...] Answer Date Recorded Total Score 0 01/19/2025 [facility] of Occupat ional Health - Occupational [...] encounter Miscellaneous Notes * Telephone Encounter - Love Donohue CMA - 01/23/2025 9:46 AM EDT Patient is wondering if she can get pain meds until he gets in to [facility] in [facility] and she would like to try some cholesterol medication that won't make her hurt. Also she said they did not do contrast with her lung scan. She was wondering why they did not. * Telephone Encounter - Jadiel Dueñas CNA - 01/23/2025 9:46 AM EDT Pt called in stating she has tried to call to figure everything out but has not heard back from anyone. Pt would like to try something different for her high cholesterol but, She does not believe the cholesterol medication is the reason for the pain/cramping. Pt also stated she is in a lot of pain and is requesting pain medication. She is cramping in legs and arms and can hardly lift her shoulder. Pt is also requesting PT referral. * Telephone Encounter - Jadiel Dueñas CNA - 01/23/2025 9:46 AM EDT ----- Message from Rohith Archer DO sent at 01/31/2025 9:15 AM EDT ----- Okay. I sent in naproxen for her. I made referral to physical therapy and pain management at [place]. She can restart her atorvastatin since it does not look like the pain is coming from that medication ----- Message ----- From: Cami Phillip CMA Sent: 01/31/2025 8:37 AM EDT To: Rohith Archer DO * Telephone Encounter - Jadiel Dueñas CNA - 01/23/2025 9:46 AM EDT Spoke Pt and she verbalized she understood. Pt is requesting a refill on atorvastatin, so she can restart that. documented in this encounter Plan of Treatment Not on file documented as of this encounter Visit Diagnoses Not on filedocumented in this encounter Additional Health Concerns Assessment Noted Time PHQ-9 Depression Total Score: 0 01/20/20 25 3:18 PM EDT documented as of this encounter Care Teams Bench Worker Relationship Specialty Start Date End Date Rohith Archer DO [address] [facility], [facility] [place] [address] PCP - General Family Medicine 06/02/22 documented as of this encounter
--- OUTSIDE RECORDS SUMMARY | 2025-02-01 14:57 | XMS_ITS | Encounter Summary ---
Author Organization [employer] [facility] tem Address [facility] [place][id number] [address] [place] [address] Care Team Providers Care Bottle House Quality Control Technician Name Role Phone GianniRohith Mario KAPOOR Primary Care Provider [phone] Encounter Details Date Type Department Care Team (Late st Contact Info) Description 03/04/2024 Orders Only [facility] Internal Medicine - Family Medicine [address] [place] [address] Cami Phillip CMA Lung nodule, solitary Social History Tobacco Use Types Packs/Day Years Used Date Smoking Tobacco: Former Cigarettes 1 47 0 11/17/1973 - 11/28/2020 Smokeless Tobacco: Never Alcohol Use Standard Drinks/Week Comments Never 0 (1 standard drink = 0.6 oz pur e alcohol) [facility] Utilities Answer Date Recorded In the past 12 months has [employer] electric, gas, oil, or water company threatened [...] Answer Date Recorded Total Score 0 02/22/2024 [facility] of Occupat ional Health - Occupational Stress [...] documented as of this encounter Care Teams Bottle House Quality Control Technician Relationship Specialty Start Date End Date Rohith Archer DO [address] [facility], [place] [address] PCP - General Family Medicine 06/02/22 documented as of this encounter
--- OUTSIDE RECORDS SUMMARY | 2025-02-01 14:57 | XMS_ITS | Encounter Summary ---
Author Organization [employer] tem Address [facility]-[id number] [address] [place] [address] Care Team Providers Care Rigging Helper Name Role Phone GianniRohith Mario KAPOOR Primary Care Provider Encounter Details Date Type Department Care Team (Late st Contact Info) Description 12/22/2022 Telephone [facility] Internal Medicine - Family Medicine [address] [place] [id number] Ruba Ortiz, NEEDLEMAKER-TEST SPECIALIST [address] [facility] [place] [address] Social History Tobacco Use Types Packs/Day Years [...] often do you attend chur ch or restoration services? Never 08/25/2022 Do you belong to [...] Recorded Do you need help finding a [facility] career center and/or a training program? [...] documented as of this encounter Care Teams Rigging Helper Relationship Specialty Start Date End Date Rohith Archer DO [address] [facility], [facility] [place] [address] PCP - General Family Medicine 06/02/22 documented as of this encounter
--- OUTSIDE RECORDS SUMMARY | 2025-02-01 14:57 | XMS_ITS | Encounter Summary ---
Author Organization [employer] tem Address [facility] [place]-[id number] [address] [place] [address] Care Team Providers Care Sewer Line Photo Inspector Name Role Phone Rohith Archer DO Primary Care Provider Encounter Details Date Type Department Care Team (Late st Contact Info) Description 02/29/2024 Telephone [facility] Internal Medicine - Family Medicine [address] [place] [address] Gildardo, Ellie, PLASTIC SURGERY MANAGER Social History Tobacco Use Types Packs/Day Years Used Date Smoking Tobacco: Former Cigarettes 1 47 0 11/17/1973 - 11/28/2020 Smokeless Tobacco: Never Alcohol Use Standard Drinks/Week Comments Never 0 (1 standard drink = 0.6 oz pur e alcohol) [facility] Utilities Answer Date Recorded In the past 12 months has [employer] electric, gas, oil, or water company threatened [...] any clubs o r organizations such as christianity groups, unions, fraternal or athletic groups, or [...] Answer Date Recorded Total Score 0 02/22/2024 [facility] of Occupat ional Health - [...] documented as of this encounter Care Teams Sewer Line Photo Inspector Relationship Specialty Start Date End Date Rohith Archer DO [address] [facility], [facility] [place] [address] PCP - General Family Medicine 06/02/22 documented as of this encounter
--- OUTSIDE RECORDS SUMMARY | 2025-02-01 14:57 | XMS_ITS | Encounter Summary ---
Author Organization [email or web address] Sys tem Address [facility] [place][id number] [address] [place] [address] Care Team Providers Care Phys Asst Name Role Phone GianniRohith Mario KAPOOR Primary Care Provider Encounter Details Date Type Department Care Team (Late st Contact Info) Description 06/22/2023 Orders Only [facility] Internal Medicine - Family Medicine [address] [place] [address] Anais Muñoz, EDUCATION ADVISER-APPOINTMENT CLERK [address] [facility] [place] [address] Social History Tobacco Use Types Packs/Day Years [...] often do you attend chur ch or yazidism services? Never 08/25/2022 Do you belong to [...] Answer Date Recorded Total Score 0 06/15/2023 [facility] of Occupat ional Health - [...] Recorded Do you need help finding a [facility] career center and/or a training program? [...] documented as of this encounter Care Teams Phys Asst Relationship Specialty Start Date End Date Rohith Archer DO [address] [facility], [place] [address] PCP - General Family Medicine 06/02/22 documented as of this encounter
--- OUTSIDE RECORDS SUMMARY | 2025-02-01 14:57 | XMS_ITS | Encounter Summary ---
Author Organization [employer] [facility] tem Address [facility] [place]-[id number] [address] [place] [address] Care Team Providers Care Sales Architect Name Role Phone Rohith Archer DO Primary Care Provider [phone] Encounter Details Date Type Department Care Team (Late st Contact Info) Description 08/05/2023 Orders Only [facility] Internal Medicine - Family Medicine [address] [place] [address] Rohith Archer DO [address], [place] [address] Acute pain of left shoulder Social History [...] often do you attend chur ch or bahai services? Never 08/25/2022 Do you belong to [...] Answer Date Recorded Total Score 0 07/31/2023 [facility] of Occupat ional Health - Occupational Stress [...] as of this encounter Care Teams Sales Architect Relationship Specialty Start Date End Date Rohith Archer DO [address] [facility], [place] [address] PCP - General Family Medicine 06/02/22 documented as of this encounter
--- OUTSIDE RECORDS SUMMARY | 2025-02-01 14:57 | XMS_ITS | Encounter Summary ---
Author Organization [facility] tem Address [facility] [place][id number] [address] [place] [address] Care Team Providers Care Film Coater Name Role Phone Rohith Archer DO Primary Care Provider [phone]- [phone] Encounter Details Date Type Department Care Team (Late st Contact Info) Description 08/05/2022 Orders Only [facility] Internal Medicine - Family Medicine [address] [place] [address] Rohith Archer DO [address], [place] [address] Social History Tobacco Use Types Packs/Day Years [...] on filedocumented in this encounter Care Teams Film Coater Relationship Specialty Start Date End Date Rohith Archer DO [address], [place] [address] PCP - General Family Medicine 06/02/22 documented as of this encounter
--- OUTSIDE RECORDS SUMMARY | 2025-02-01 14:57 | XMS_ITS | Encounter Summary ---
Author Organization [facility] [employer] [facility] tem Address [facility] [place][id number] [address] [place] [address] Care Team Providers Care Switchman Name Role Phone Rohith Archer DO Primary Care Provider Encounter Details Date Type Department Care Team (Late st Contact Info) Description 08/19/2022 Orders Only [facility] Internal Medicine - Family Medicine [address] [place] [address] Rohith Archer DO [address] [place] [facility] [place] [address] Social History Tobacco Use Types Packs/Day Years [...] on filedocumented in this encounter Care Teams Switchman Relationship Specialty Start Date End Date Rohith Archer DO [address] [place] [facility] [place] [address] PCP - General Family Medicine 06/02/22 documented as of this encounter
--- OUTSIDE RECORDS SUMMARY | 2025-02-01 14:57 | XMS_ITS | Encounter Summary ---
Author Organization [employer] tem Address [facility] [place][id number] [address] [place] [address] Care Team Providers Care Broaching Machine Repairer Name Role Phone GianniRohith Mario KAPOOR Primary Care Provider [phone]- [phone] Encounter Details Date Type Department Care Team (Late st Contact Info) Description 06/19/2023 Telephone [facility] Medicine - Family Medicine [address] [place] [address] Cami Phillip CMA Social History Tobacco Use [...] often do you attend chur ch or episcopalian services? Never 08/25/2022 Do you belong to any clubs o r organizations such as caodaism groups, unions, fraternal or athletic groups, or [...] Answer Date Recorded Total Score 0 06/15/2023 [facility] - Occupational Stress Questionnaire Answer Date [...] Recorded Do you need help finding a [facility] career center and/or a training [...] documented as of this encounter Care Teams Broaching Machine Repairer Relationship Specialty Start Date End Date Rohith Archer DO [address], [facility] [place] [address] PCP - General Family Medicine 06/02/22 documented as of this encounter
--- OUTSIDE RECORDS SUMMARY | 2025-02-01 14:57 | XMS_ITS | Encounter Summary ---
Author Organization [employer] tem Address [id number] [address] [place] [address] Care Team Providers Care Graphotype Operator Name Role Phone GianniRohith Mario KAPOOR Primary Care Provider [phone]- [phone] Encounter Details Date Type Department Care Team (Late st Contact Info) Description 07/06/2023 Telephone [facility] Internal Medicine - Family Medicine [address] [place] [address] Cami Phillip CMA Social History Tobacco Use [...] any clubs o r organizations such as jain groups, unions, fraternal or athletic groups, or [...] Answer Date Recorded Total Score 0 06/15/2023 [facility] - Occupational Stress Questionnaire [...] Recorded Do you need help finding a [facility], [facility] career center and/or a training program? No [...] documented as of this encounter Care Teams Graphotype Operator Relationship Specialty Start Date End Date Rohith Archer DO [address] [place] [address] PCP - General Family Medicine 06/02/22 documented as of this encounter
--- OUTSIDE RECORDS SUMMARY | 2025-02-01 14:57 | XMS_ITS | Encounter Summary ---
Author Organization [employer] tem Address [facility] [place][id number] [address] [place] [address] Care Team Providers Care Coal Yard Supervisor Name Role Phone JulioRohith gramajo Mario KAPOOR Primary Care Provider Encounter Details Date Type Department Care Team (Late st Contact Info) Description 01/31/2025 Orders Only [facility] Medicine - Family Medicine [address] [place] [address] Cami Phillip CMA Ex-cigarette smoker Social History Tobacco Use Types Packs/Day Years Used Date Smoking Tobacco: Former Cigarettes 1 47 0 11/17/1973 - 11/28/2020 Smokeless Tobacco: Never Alcohol Use Standard Drinks/Week Comments Never 0 (1 standard drink = 0.6 oz pur e alcohol) [facility] Utilities Answer Date Recorded In the past 12 months has [employer], gas, oil, or water company threatened to [...] often do you attend chur ch or confucianism services? Never 08/25/2022 Do you belong to [...] Answer Date Recorded Total Score 0 01/19/2025 [facility] of Occupat ional Health - Occupational [...] Comments CT LOW DOSE LUNG SCREENING Routine 01/31/2025 8:35 AM EDT Ex-cigarette smoker documented in this [...] documented as of this encounter Care Teams Coal Yard Supervisor Relationship Specialty Start Date End Date Rohith Archer DO [address] [facility], [place] [address] PCP - General Family Medicine 06/02/22 documented as of this encounter
--- OUTSIDE RECORDS SUMMARY | 2025-02-01 14:57 | XMS_ITS | Encounter Summary ---
Author Organization [employer] [facility] tem Address [facility] [place]-[id number] [address] [place] [address] Care Team Providers Care Engine Cleaner Name Role Phone Rohith Archer DO Primary Care Provider [phone]- [phone] Encounter Details Date Type Department Care Team (Late st Contact Info) Description 01/31/2025 Orders Only [facility] Internal Medicine - Family Medicine [address] [place] [address] Rohith Archer DO [address], [place] [address] Social History Tobacco Use Types Packs/Day Years Used Date Smoking Tobacco: Former Cigarettes 1 47 0 11/17/1973 - 11/28/2020 Smokeless Tobacco: Never Alcohol Use Standard Drinks/Week Comments Never 0 (1 standard drink = 0.6 oz pur e alcohol) [facility] Utilities Answer Date Recorded In the past 12 months has [employer], gas, oil, or water [employer] threatened to shut off services in your [...] week 08/25/2022 How often do you attend [facility] or anabaptism services? Never 08/25/2022 Do you belong to [...] Answer Date Recorded Total Score 0 01/19/2025 [facility] of Occupat ional Health - [...] Recorded Do you need help finding a [facility] career center and/or a training program? No [...] documented as of this encounter Care Teams Engine Cleaner Relationship Specialty Start Date End Date Rohith Archer DO [address], [place] [address] PCP - General Family Medicine 06/02/22 documented as of this encounter
--- OUTSIDE RECORDS SUMMARY | 2025-02-01 14:57 | XMS_ITS | Encounter Summary ---
Author Organization [employer] [facility] tem Address [facility]-[id number] [address] [place] [address] Care Team Providers Care Pulp Bleacher Name Role Phone Rohith Archer DO Primary Care Provider +1- [phone] Encounter Details Date Type Department Care Team (Late st Contact Info) Description 12/26/2024 Results Follow-Up [facility] Internal Medicine - Family Medicine [address] [place] [address] Rohith Archer DO [address], [place] [address] [employer] Social History Tobacco Use Types Packs/Day Years Used Date Smoking Tobacco: Former Cigarettes 1 47 0 11/17/1973 - 11/28/2020 Smokeless Tobacco: Never Alcohol Use Standard Drinks/Week Comments Never 0 (1 standard drink = 0.6 oz pur e alcohol) [facility] Utilities Answer Date Recorded In the past 12 months has [employer], gas, oil, or water [employer] threatened to shut off services in your [...] week 08/25/2022 How often do you attend [facility] or latter day services? Never 08/25/2022 Do you belong to [...] Answer Date Recorded Total Score 0 02/22/2024 [facility] of Occupat ional Health - Occupational [...] Recorded Do you need help finding a [facility] career center and/or a training program? [...] documented as of this encounter Care Teams Pulp Bleacher Relationship Specialty Start Date End Date Rohith Archer DO [address], [place] [address] PCP - General Family Medicine 06/02/22 documented as of this encounter
--- OUTSIDE RECORDS SUMMARY | 2025-02-01 14:57 | XMS_ITS | Encounter Summary ---
Author Organization [employer] tem Address [facility]-[id number] [address] [place] [address] Care Team Providers Care Major League Baseball Umpire Name Role Phone GianniRohith Mario KAPOOR Primary Care Provider Encounter Details Date Type Department Care Team (Late st Contact Info) Description 06/16/2023 Orders Only [facility] Internal Medicine - Family Medicine [address] [place] [address] Anais Muñoz, SOLAR SYSTEMS DESIGNER-MED ASST [address] [facility] [address] [address] Acute chest wall pain Social History Tobacco [...] often do you attend chur ch or orthodoxy services? Never 08/25/2022 Do you belong to [...] Answer Date Recorded Total Score 0 06/15/2023 [facility] of Occupat ional Health - [...] Chest Left Computed Radiogr aphy Anais Muñoz SOLAR SYSTEMS DESIGNER-MED ASST IMG DIAGNOSTIC IMAGING DEA ZAIDI Final Result documented in this encounter Visit Diagnoses Diagnosis Acute chest wall pain documented in this encounter Additional Health Concerns Assessment Noted Time PHQ-9 Depression Total Score: 0 06/15/19 24 3:31 PM EST documented as of this encounter Care Teams Major League Baseball Umpire Relationship Specialty Start Date End Date Rohith Archer DO [address] [facility], [place] [address] PCP - General Family Medicine 06/02/22 documented as of this encounter
--- OUTSIDE RECORDS SUMMARY | 2025-02-01 14:57 | XMS_ITS | Encounter Summary ---
Author Organization [employer] tem Address [facility]-[id number] [address] [place] [address] Care Team Providers Care Physics Teacher Name Role Phone GianniRohith Mario KAPOOR Primary Care Provider Encounter Details Date Type Department Care Team (Late st Contact Info) Description 07/28/2023 Orders Only [facility] Medicine - Family Medicine [address] [address] Anais Muñoz, POWERHOUSE LABORER-PHILOSOPHY FACULTY MEMBER [address] [place] [address] Social History Tobacco Use Types Packs/Day Years [...] often do you attend chur ch or quaker services? Never 08/25/2022 Do you belong to [...] Answer Date Recorded Total Score 0 07/31/2023 [facility] of Occupat ional Health - [...] documented as of this encounter Care Teams Physics Teacher Relationship Specialty Start Date End Date Rohith Archer DO [address] [facility], [place] [address] PCP - General Family Medicine 06/02/22 documented as of this encounter
--- OUTSIDE RECORDS SUMMARY | 2025-02-01 14:57 | XMS_ITS | Encounter Summary ---
Author Organization [employer] [facility] tem Address [facility]-[id number] [address] [place] [address] Care Team Providers Care Make Up Man Name Role Phone Rohith Archer DO Primary Care Provider [phone]- [phone] Encounter Details Date Type Department Care Team (Late st Contact Info) Description 01/30/2025 Orders Only [facility] Medicine - Family Medicine [address] [place] [address] Rohith Archer DO [address], [place] [address] Social History Tobacco Use Types Packs/Day Years Used Date Smoking Tobacco: Former Cigarettes 1 47 0 11/17/1973 - 11/28/2020 Smokeless Tobacco: Never Alcohol Use Standard Drinks/Week Comments Never 0 (1 standard drink = 0.6 oz pur e alcohol) [facility] Utilities Answer Date Recorded In the past 12 months has [employer], gas, oil, or water [employer] threatened to shut off services in your [...] week 08/25/2022 How often do you attend [facility] or alevism services? Never 08/25/2022 Do you [...] Answer Date Recorded Total Score 0 01/19/2025 [facility] of Occupat ional Health - [...] Do you need help finding a [facility] career center and/or a training program? [...] documented as of this encounter Care Teams Make Up Man Relationship Specialty Start Date End Date Rohith Archer DO [address], [place] [address] PCP - General Family Medicine 06/02/22 documented as of this encounter
--- OUTSIDE RECORDS SUMMARY | 2025-02-01 14:57 | XMS_ITS | Encounter Summary ---
Author Organization [employer] Address [facility] [place][id number] [address] [place] [address] Care Team Providers Care Coal Tower Operator Name Role Phone Gianni Rohith Mario KAPOOR Primary Care Provider Encounter Details Date Type Department Care Team (Late st Contact Info) Description 03/04/2024 Telephone [facility] Internal [facility] - Family Medicine [address] [place] [address] Gino Wang CMA Social History Tobacco Use Types Packs/Day Years Used Date Smoking Tobacco: Former Cigarettes 1 47 0 11/17/1973 - 11/28/2020 Smokeless Tobacco: Never Alcohol Use Standard Drinks/Week Comments Never 0 (1 standard drink = 0.6 oz pur e alcohol) [facility] Utilities Answer Date Recorded In the past 12 months has [employer] electric, gas, oil, or water company threatened [...] often do you attend chur ch or latter day services? Never 08/25/2022 Do you belong to any clubs o r organizations such as tenriism groups, unions, fraternal or athletic groups, or [...] Answer Date Recorded Total Score 0 02/22/2024 [facility] of Occupat ional Health - Occupational Stress [...] as of this encounter Care Teams Coal Tower Operator Relationship Specialty Start Date End Date Rohith Archer DO [address], [place] [address] PCP - General Family Medicine 06/02/22 documented as of this encounter
--- OUTSIDE RECORDS SUMMARY | 2025-02-01 14:57 | XMS_ITS | Encounter Summary ---
Author Organization [employer] tem Address [id number] [address] [place] [address] Care Team Providers Care Admissions Supervisor Name Role Phone Rohith Archer DO Primary Care Provider +1- [phone] Encounter Details Date Type Department Care Team (Late st Contact Info) Description 08/04/2023 Telephone [facility] Internal Medicine - Family Medicine [address] [place] [address] Gildardo, Ellie, FRAME ASSEMBLER Social History Tobacco Use Types Packs/Day Years [...] Answer Date Recorded Total Score 0 07/31/2023 [facility]at [facility] - Occupational Stress Questionnaire Answer Date [...] Recorded Do you need help finding a [facility] career center and/or a training [...] EDT Called pt xrays were done at [facility] of the left shoulder * Telephone Encounter - Nam Salinas DO - 08/04/2023 10:17 AM EDT Message noted. Please contact [facility] to send over the reports of the x-rays * Telephone Encounter - Ellie Ewing CMA - 08/04/2023 10:17 AM EDT I called [facility] left vm to call back pt had [...] documented as of this encounter Care Teams Admissions Supervisor Relationship Specialty Start Date End Date Rohith Archer DO [address] [facility], [place] [address] PCP - General Family Medicine 06/02/22 documented as of this encounter
--- OUTSIDE RECORDS SUMMARY | 2025-02-01 14:57 | XMS_ITS | Encounter Summary ---
Author Organization [employer] tem Address [id number] [address] [place] [address] Care Team Providers Care Director Maternal Child Name Role Phone Rohith Archer DO Primary Care Provider + [phone] Reason for Referral * Consultation (Routine) - Authorized Specialty Diagnoses / Procedures Referred By Contac t Referred To Contact Pain Medicine Diagnoses Chronic bilateral low back pain without sciatica Acute pain of left shoulder Lumbar spondylosis Rohith Archer DO [address], [place] [address] Phone: tel: fax: Jayce Guevara MD [address] [place] [address] Phone: tel: fax: Referral ID Status Reason Start Date Expiration Date V isits Requested Visits Authorized [id number] Authorized 01/31/2025 01/31/2026 1 1 * Physical Therapy (Routine) - Authorized Specialty Diagnoses / Procedures Referred By Contac t Referred To Contact Rehabilitation Diagnoses Chronic bilateral low back pain without sciatica Acute pain of left shoulder Lumbar spondylosis Rohith Archer DO [address], [place] [address] Phone: tel: fax: Referral ID Status Reason Start Date Expiration Date Visits Requested Visits Authorized [id number] Authorized Specialty Services Required 01/31/2025 07/31/2025 1 1 Encounter Details Date Type Department Care Team (Late st Contact Info) Description 01/31/2025 Orders Only [facility] Internal Medicine - Family Medicine [address] [place] [address] Rohith Archer DO [address], [place] [address] Chronic bilateral low back pain without sciatica (Primary Dx); Acute pain of left shoulder; Lumbar spondylosis Social History Tobacco Use Types Packs/Day Years Used Date Smoking Tobacco: Former Cigarettes 1 47 0 11/17/1973 - 11/28/2020 Smokeless Tobacco: Never Alcohol Use Standard Drinks/Week Comments Never 0 (1 standard drink = 0.6 oz pur e alcohol) [facility] Utilities Answer Date Recorded In the past 12 months has [employer] electric, gas, oil, or water [employer] threatened to shut off services in your [...] week 08/25/2022 How often do you attend [facility] or buddhist services? Never 08/25/2022 Do you belong to [...] Answer Date Recorded Total Score 0 01/19/2025 [facility] of Occupat ional Health - Occupational [...] Recorded Do you need help finding a [facility] and/or a training [...] as of this encounter Plan of Treatment Scheduled Referrals Name Type Priority Associated Diagnoses Order Schedule Ambulatory referral to Physical Therapy ([facility]) Outpatient Referral Routine Chronic bilateral low back pain without sciatica Acute pain of left shoulder Lumbar spondylosis 1 Occurrences starting 01/31/2025 until 01/31/2026 Ambulatory referral to Pain Management (Non[facility]) Outpatient Referral Routine Chronic bilateral low back pain without sciatica Acute pain of left shoulder Lumbar spondylosis 1 Occurrences starting 01/31/2025 until 01/31/2026 documented as of this encounter Visit Diagnoses Diagnosis Chronic bilateral low back pain without sciatica- Primary Acute pain of left shoulder Lumbar spondylosis Lumbosacral spondylosis without myelopathy documented in this encounter Additional Health Concerns Assessment Noted Time PHQ-9 Depression Total Score: 0 01/20/20 25 3:18 PM EDT documented as of this encounter Care Teams Director Maternal Child Relationship Specialty Start Date End Date Rohith Archer DO [address] [facility], [place] [address] PCP - General Family Medicine 06/02/22 documented as of this encounter
--- OUTSIDE RECORDS SUMMARY | 2025-02-01 14:57 | XMS_ITS | Encounter Summary ---
Author Organization [employer] tem Address [id number] [address] [place] [address] Care Team Providers Care Technical Support Analyst Name Role Phone GianniRohith Mario KAPOOR Primary Care Provider +[phone] Encounter Details Date Type Department Care Team (Late st Contact Info) Description 07/28/2023 Telephone [facility] Internal Medicine - Family Medicine [address] [place] [address] Cami Phillip CMA Social History Tobacco Use [...] Answer Date Recorded Total Score 0 07/31/2023 [facility] - Occupational Stress Questionnaire Answer Date Recorded [...] Recorded Do you need help finding a [place] [facility] [facility] career center and/or a training [...] documented as of this encounter Care Teams Technical Support Analyst Relationship Specialty Start Date End Date Rohith Archer DO [address] [facility], [place] [address] PCP - General Family Medicine 06/02/22 documented as of this encounter
--- OUTSIDE RECORDS SUMMARY | 2025-02-01 14:57 | XMS_ITS | Encounter Summary ---
Author Organization [employer] [facility] tem Address [facility] [id number] [address] [place] [address] Care Team Providers Care Carpet Installer Helper Name Role Phone Rohith Archer DO Primary Care Provider [phone]- [phone] Encounter Details Date Type Department Care Team (Late st Contact Info) Description 08/19/2022 [facility]phone [facility] [address] [place] [address] Jocelyn Birch CMA Social History Tobacco Use [...] she fasted and went to [facility] for her labs, and they had no order there. She was also late for work, due to the confusion. I allowed pt to know she can fast 4 hours prior to her appointment and she will get drawn when she is here. * Telephone Encounter - Rohith Archer DO - 08/19/2022 9:27 AM EDT The message was for [facility], no pola documented in this encounter Plan of Treatment Not on file documented as of this encounter Visit Diagnoses Not on filedocumented in this encounter Care Teams Carpet Installer Helper Relationship Specialty Start Date End Date Rohith Archer DO [address], [facility] [place] [address] PCP - General Family Medicine 06/02/22 documented as of this encounter
--- OUTSIDE RECORDS SUMMARY | 2025-02-01 14:57 | XMS_ITS | Encounter Summary ---
Author Organization [employer] Address [id number] [address] [place] [address] Care Team Providers Care Telephone Clerk Telegraph Office Name Role Phone GianniRohith Mario KAPOOR Primary Care Provider Encounter Details Date Type Department Care Team (Late st Contact Info) Description 03/07/2024 Telephone [facility] Internal Medicine - Family Medicine [address] [place] [address] Peggy Azul CMA Social History Tobacco Use Types Packs/Day Years Used Date Smoking Tobacco: Former Cigarettes 1 47 0 11/17/1973 - 11/28/2020 Smokeless Tobacco: Never Alcohol Use Standard Drinks/Week Comments Never 0 (1 standard drink = 0.6 oz pur e alcohol) [facility] Utilities Answer Date Recorded In the past 12 months has [employer] electric, gas, oil, or water company threatened [...] Answer Date Recorded Total Score 0 02/22/2024 [facility] of Occupat ional [...] Recorded Do you need help finding a [facility] career center and/or a training [...] to the following: CT chest without contrast [[id number]] on 03/04/2024 I called pt and read result note. She verbally states she understands.Recheck in a year documented in this encounter Plan of Treatment Not on file documented as of this encounter Visit Diagnoses Not on filedocumented in this encounter Additional Health Concerns Assessment Noted Time PHQ-9 Depression Total Score: 0 02/22/20 11:04 AM EDT documented as of this encounter Care Teams Telephone Clerk Telegraph Office Relationship Specialty Start Date End Date Rohith Archer DO [address], [facility] [address] PCP - General Family Medicine 06/02/22 documented as of this encounter
--- OUTSIDE RECORDS SUMMARY | 2025-02-01 14:57 | XMS_ITS | Encounter Summary ---
Author Organization [employer] tem Address [id number] [address] [place] [address] Care Team Providers Care Music Intern Name Role Phone GianniRohith Mario KAPOOR Primary Care Provider [phone]- [phone] Encounter Details Date Type Department Care Team (Late st Contact Info) Description 06/16/2023 Telephone [facility] Internal Medicine - Family Medicine [address] [place] [address] Gino Wang CMA Social History Tobacco Use [...] Total Score 0 06/15/[address] [facility] - Occupational Stress Questionnaire Answer [...] Recorded Do you need help finding a [facility] career [facility] and/or a training program? [...] done 06/15. She had it done at [facility] * Telephone Encounter - Rohith Archer [...] to both * Telephone Encounter - ZI aCsey - 06/16/2023 1:08 PM EST Yes, I sent the results to the clinical staff they were normal. I think the next step would be to check a stress test just to be sure but I also think it wouldn't hurt to try something for pain as this is likely musckuloskeletal. We usually do stress tests with Dr Salinas at [facility], is that ok? documented in this encounter Plan of Treatment Not on file documented as of this encounter Visit Diagnoses Not on filedocumented in this encounter Additional Health Concerns Assessment Noted Time PHQ-9 Depression Total Score: 0 06/15/19 24 3:31 PM EST documented as of this encounter Care Teams Music Intern Relationship Specialty Start Date End Date Rohith Archer DO [address] [facility], [place] [address] PCP - General Family Medicine 06/02/22 documented as of this encounter
--- OUTSIDE RECORDS SUMMARY | 2025-02-01 14:57 | XMS_ITS | Encounter Summary ---
Author Organization [employer] Address [id number] [address] [place] [address] Care Team Providers Care Emery Wheel Worker Name Role Phone GianniRohith Mario KAPOOR Primary Care Provider Encounter Details Date Type Department Care Team (Late st Contact Info) Description 12/17/2022 Orders Only [facility] Medicine - Family Medicine [address] [place] [address] Cami Phillip CMA Colon cancer screening Social [...] any clubs o r organizations such as mosque groups, unions, fraternal or athletic groups, or [...] Answer Date Recorded Total Score 0 12/08/2022 [facility] of Occupat ional Health - Occupational [...] documented as of this encounter Care Teams Emery Wheel Worker Relationship Specialty Start Date End Date Rohith Archer DO [address] [facility], [place] [address] PCP - General Family Medicine 06/02/22 documented as of this encounter
--- OUTSIDE RECORDS SUMMARY | 2025-02-01 14:57 | XMS_ITS | Encounter Summary ---
Author Organization [employer] Address [facility]-[id number] [address] [place] [address] Care Team Providers Care Warehouse Insulation Worker Name Role Phone Rohith Archer DO Primary Care Provider [phone]- [phone] Reason for Visit * Reason Comments Med Refill Encounter Details Date Type Department Care Team (Late st Contact Info) Description 06/22/2022 Refill [facility] Internal Medicine - Family Medicine [address] [place] [address] Rohith Archer DO [address] [facility] [place] [address] Mixed hyperlipidemia Social History Tobacco Use Types [...] hyperlipidemia documented in this encounter Care Teams Warehouse Insulation Worker Relationship Specialty Start Date End Date Rohith Archer DO [address] [place] [address] PCP - General Family Medicine 06/02/22 documented as of this encounter
--- OUTSIDE RECORDS SUMMARY | 2025-02-01 14:57 | XMS_ITS | Encounter Summary ---
Author Organization [facility] tem Address [facility] [id number] [address] [place] [address] Care Team Providers Care Chef De Froid Name Role Phone Rohith Archer DO Primary Care Provider +1- [phone] Encounter Details Date Type Department Care Team (Late st Contact Info) Description 01/22/2023 Orders Only [facility] Internal Medicine - Family Medicine [address] [place] [address] Rohith Archer DO [address], [place] [address] Social History Tobacco Use Types Packs/Day Years [...] any clubs o r organizations such as rastafarian groups, unions, fraternal or athletic groups, or [...] Date Recorded Total Score 0 12/08/2022 [facility] of Occupat ional Health - [...] Recorded Do you need help finding a [facility] career center and/or a [...] documented as of this encounter Care Teams Chef De Froid Relationship Specialty Start Date End Date Rohith Archer DO [address], [place] [address] PCP - General Family Medicine 06/02/22 documented as of this encounter
--- OUTSIDE RECORDS SUMMARY | 2025-02-01 14:57 | XMS_ITS | Encounter Summary ---
Author Organization [employer] [facility] tem Address [facility]-[id number] [address] [place] [address] Care Team Providers Care Sql Application Developer Name Role Phone Rohith Archer DO Primary Care Provider +1- [phone] Encounter Details Date Type Department Care Team (Late st Contact Info) Description 08/07/2023 Telephone [facility] Internal Medicine - Family Medicine [address] [place] [address] Rohith Archer DO [address], [place] [address] Social History Tobacco Use Types Packs/Day Years [...] Answer Date Recorded Total Score 0 07/31/2023 [facility] of Occupat ional Health - [...] get and because they were sent over [employer] to the patient. She said gather all [...] documented as of this encounter Care Teams Sql Application Developer Relationship Specialty Start Date End Date Rohith Archer DO [address], [place] [address] PCP - General Family Medicine 06/02/22 documented as of this encounter
--- OUTSIDE RECORDS SUMMARY | 2025-02-01 14:57 | XMS_ITS | Clinical Summary ---
Author Organization [employer] tem Address [facility] [place]-[id number] [address] [place] [address] Care Team Providers Care Health Information Systems Technician Name Role Phone GianniRohith Mario KAPOOR Primary Care Provider Allergies No known active allergies Medications polycarbophil (FIBER, CALCIUM POLYCARBOPHIL, ) 625 mg tablet Take 1 tablet (625 mg total) by mouth. 12/17/19 23 Active fluticasone-um eclidin-vilant er (TRELEGY ELLIPTA) 100-62.5-25 mcg blister with device Inhale 1 puff in the morning. 1 each 01/20/20 25 Active naproxen (NAPROSYN) 500 mg tablet Take 1 tablet (500 mg total) by mouth in the morning and 1 tablet (500 mg total) in the evening. Take with meals. 60 tablet 2 01/31/20 25 Active atorvastatin (LIPITOR) 20 mg tablet Take 1 tablet (20 mg total) by mouth in the morning. 90 tablet 3 02/01/20 25 Active vit C,X-Sw-zqcmi-l utein-zeaxan (PRESERVISION AREDS-2) 250-90-40-1 mg capsule Taking,but holding for surgery 025 Discontinu ed(Therapy completed) Immunization, In Clinic, Inject 0.5 mL into the appropriate muscle once for 1 dose. varicella-zoster (PF) 50 mcg/0.5mL Sign this order to satisfy the OSBOP Positive ID requirements for immunization orders. 01/20/20 25 08/28/2 025 Active Problems Problem Noted Date Diagnosed Date Chronic bilateral low back pain without sciatica 01/19/2025 Acute pain of left shoulder 01/19/2025 Mixed hyperlipidemia 06/15/2023 Ex-cigarette smoker 08/25/2022 Exudative age-related macular degeneration of ri ght eye 07/03/2020 COPD (chronic obstructive pulmonary disease) Resolved Problems Problem Noted Date Diagnosed Date Resolved Date Overweight 08/25/2022 02/22/2024 Encounters Date Type Department Care Team Description 01/31/2025 Orders Only [facility] [address] [place] [address] Rohith Archer, 01/31/2025 Orders Only [facility] [address] [place] [address] Rohith Archer, Chronic bilateral low back pain without sciatica (Primary Dx); Acute pain of left shoulder; Lumbar spondylosis 01/31/2025 Orders Only [facility] [address] [place] [address] Cami Phillip CMA Ex-cigarette smoker 01/30/2025 Orders Only [facility] [address] [place] [address] Rohith Archer, 01/27/2025 Orders Only [facility] [address] [place] [address] Cami Phillip CMA Chronic bilateral low back pain without sciatica; Acute pain of left shoulder 01/23/2025 Results Follow-Up [facility] [address] [place] [address] Rohith Archer DO Magnesium, Lipid profile, Comprehensive metabolic panel, Additional followed-up results: 3 01/19/2025 3:15 PM EDT Office Visit [facility] [address] [place] [address] Rohith Archer, DO Well adult exam (Primary Dx); Chronic obstructive pulmonary disease, unspecified COPD type (CMS-HCC); Pain in both lower extremities; Chronic bilateral low back pain without sciatica; Acute pain of left shoulder; Ex-cigarette smoker; Need for shingles vaccine 01/19/2025 Travel 12/26/2024 Results Follow-Up [facility] [address] [place] [address] Rohith Archer, DO HM MAMMOGRAPHY 12/26/2024 Orders Only [facility] [address] [place] [address] Ref Prov, Not In System from Last [...] drink = 0.6 oz pur e alcohol) [facility] Utilities Answer Date Recorded In the past 12 months has [employer], gas, oil, or water [employer] threatened to shut off services in your [...] How often do you attend [facility] or sabianism services? Never 08/25/2022 Do you belong to any clubs o r organizations such as mandaeism groups, unions, fraternal or athletic groups, or [...] Recorded Do you need help finding a [facility] career center and/or a training [...] Done Comments Pap Smear 1981 COVID-19 Vaccine ( - 2024-2 6 season) 2025 04/23/2021, 10/18/2020, [...] Routine 01/31/2025 8:35 AM EDT Ex-cigarette smoker XR SHOULDER LT MIN 2 VWS Routine [...] Recently Relevant to Health Maintenance Results * CT low dose lung screening [...] L-spine N/A Compu earl Radiography us Rohith Kimng DO IMG DIAGNOSTIC IMAGING ORDER [place] Final Result * Magnesium (01/19/2025 4:26 PM EDT) MAGNESIUM 2.1 1.8 - 2.6 mg/dL 01/19/2025 10:31 PM EDT [facility] Blood Venous blood / Unknown 01/19/2025 4:26 PM EDT 01/19/2025 4:27 PM EDT [facility] LAB BLOOD ORDERABLES Final R esult [facility] [address] [place] [address], [place] [phone] * (ABNORMAL) Lipid profile (01/19/2025 4:26 PM EDT) CHOLESTEROL 242(H) 150 - 200 mg/dL 01/19/2025 10:31 PM EDT [facility] TRIGLYCERIDE 138 27 - 150 mg/dL 01/19/2025 10:31 PM EDT [facility] HDL CHOLESTEROL 37(L) >39 mg/dL 10:31 PM EDT [facility] Comment: HDL <40 mg/dL - High Risk HDL > or = 40mg/dL- Desirable HDL >60 mg/dL - Negative Risk LDL (CALC) 177(H) <130 mg/dL 01/19/2025 10:31 PM EDT [facility] Comment: LDL <100 mg/dL - Desirable LDL >160 mg/dL - High Risk CHOLESTEROL:HDL 6.5(H) 1.0 - 5.0 10:31 PM EDT [facility] VERY LOW LIPOPROTEIN 28 0 - 30 mg/dL 01/19/2025 10:31 PM EDT [facility] Blood Venous blood / Unknown 01/19/2025 4:26 PM EDT 01/19/2025 4:27 PM EDT us Rohith Archer DO LAB BLOOD ORDERABLES Final R esult [facility] [address] [place] [phone], * Comprehensive metabolic panel (01/19/2025 4:26 PM EDT) SODIUM 141 134 - 146 mmol/L 01/19/2025 10:31 PM EDT [facility] POTASSIUM 3.9 3.5 - 5.0 mmol/L 01/19/2025 10:31 PM EDT [facility] CHLORIDE 102 98 - 109 mmol/L 01/19/2025 10:31 PM EDT [facility] CARBON DIOXIDE 28 22 - 32 mmol/L 01/19/2025 10:31 PM EDT [facility] ANION GAP 11 5 - 15 mmol/L 01/19/2025 10:31 PM EDT [facility] BLOOD UREA NITROGEN 15 5 - 27 mg/dL 01/19/2025 10:31 PM EDT [facility] CREATININE 0.68 0.40 - 1.00 mg/dL 01/19/2025 10:31 PM EDT [facility] Comment:METHOD TRACEABLE TO IDMS STANDARD GLUCOSE 99 65 - 99 mg/dL 01/19/2025 10:31 PM EDT [facility] CALCIUM 9.6 8.5 - 10.5 mg/dL 01/19/2025 10:31 PM EDT [facility] TOTAL PROTEIN 7.2 6.0 - 8.0 g/dL 01/19/2025 10:31 PM EDT [facility] ALBUMIN 4.5 3.2 - 5.3 g/dL 01/19/2025 10:31 PM EDT [facility] ALKALINE PHOSPHATASE 88 39 - 130 U/L 01/19/2025 10:31 PM EDT [facility] AST 20 <=41 U/L 01/19/2025 10:31 PM EDT [facility] ALT 15 <=31 U/L 01/19/2025 10:31 PM EDT [facility] BILIRUBIN,TOTAL 0.5 0.3 - 1.2 mg/dL 01/19/2025 10:31 PM EDT [facility] EGFR Non-Race Dependent >90 >=60 ml/min/1.7 3sq.m 01/19/2025 10:31 PM EDT [facility] Comment: Reported eGFR is based on the CKD-EPI 2020 equation that does not use a race coefficient. Blood Venous blood / Unknown 01/19/2025 4:26 PM EDT 01/19/2025 4:27 PM EDT us Rohith Archer DO LAB BLOOD ORDERABLES Final R esult [facility] [address] [place] [address], [place] [phone] * HM MAMMOGRAPHY (12/15/2024 10:51 AM EDT) Anatomical Region Laterality Modality Other us Not In System Ref Prov HEALTH MAINTENANCE Final Result * HM COLONOSCOPY (01/14/2023 11:28 AM EDT) us Scanning Provider External HEALTH MAINTENANCE Fi nal Result Performing Organization Address City/[facility]/ZIP Co de Phone Number MANUALLY TRANSCRIBED RESULTS from Last 3 Months or Most Recently Relevant to Health Maintenance Insurance [address] [place] [address] [employer] Care Teams Health Information Systems Technician Relationship Specialty Start Date End Date Rohith ArcherDO [address] [facility] [place] [address] PCP - General Family Medicine 06/02/22
--- OUTSIDE RECORDS SUMMARY | 2025-02-01 14:57 | XMS_ITS | Clinical Summary ---
Author Organization [facility] Healthcare Address [address] [address] Care Team Providers Care Sleeve Separator Name Role Phone Unavailable Primary Care Provider [...]
--- OUTSIDE RECORDS SUMMARY | 2025-02-01 14:57 | XMS_ITS | Encounter Summary ---
Author Organization [employer] tem Address [facility]-[id number] [address] [place] [address] Care Team Providers Care Student Financial Aid Manager Name Role Phone JulioRohith gramajo Mario KAPOOR Primary Care Provider Encounter Details Date Type Department Care Team (Late st Contact Info) Description 10/08/2023 Orders Only [facility] [address] [place] [address] Cami Phillip CMA Encounter for screening mammogram for malignant neoplasm of breast; Ex-cigarette smoker Social History Tobacco Use Types Packs/Day Years Used Date Smoking Tobacco: Former Cigarettes 1 47 0 11/17/1973 - 11/28/2020 Smokeless Tobacco: Never Alcohol Use Standard Drinks/Week Comments Never 0 (1 standard drink = 0.6 oz pur e alcohol) [facility] Utilities Answer Date Recorded In the past 12 months has [employer], gas, oil, or water [employer] threatened to shut off services in [...] Answer Date Recorded Total Score 0 09/01/2023 [facility] of Occupat ional Health [...] C omputed Tomography 10/06/2023 Rohith Archer DO [facility] CT ORDERABLES Final Resu lt * Mammography [...] documented as of this encounter Care Teams Student Financial Aid Manager Relationship Specialty Start Date End Date Rohith Archer DO [address] [place] [address] PCP - General Family Medicine 06/02/22 documented as of this encounter
--- OUTSIDE RECORDS SUMMARY | 2025-02-01 14:57 | XMS_ITS | Encounter Summary ---
Author Organization [employer] [facility] tem Address [facility] [place]-[id number] [address] [place] [address] Care Team Providers Care Salesforce Consultant Name Role Phone Rohith Archer DO Primary Care Provider [phone] Encounter Details Date Type Department Care Team (Late st Contact Info) Description 02/25/2024 Orders Only [facility] - [facility] [address] [place] [address] Rohith Archer DO [address] [place] [address] Social History Tobacco Use Types Packs/Day Years Used Date Smoking Tobacco: Former Cigarettes 1 47 0 11/17/1973 - 11/28/2020 Smokeless Tobacco: Never Alcohol Use Standard Drinks/Week Comments Never 0 (1 standard drink = 0.6 oz pur e alcohol) [facility] Utilities Answer Date Recorded In the past 12 months has [employer], gas, oil, or water [employer] threatened to shut off services in your [...] often do you attend [facility] or islam services? Never 08/25/2022 Do you belong to any clubs o r organizations such as pentecostalism groups, unions, fraternal or athletic groups, or [...] Date Recorded Total Score 0 02/22/2024 [facility] of Occupat ional Health - [...] documented as of this encounter Care Teams Salesforce Consultant Relationship Specialty Start Date End Date Rohith Archer DO [address] [place] [address] PCP - General Family Medicine 06/02/22 documented as of this encounter
--- OUTSIDE RECORDS SUMMARY | 2025-02-01 14:57 | XMS_ITS | Encounter Summary ---
Author Organization [employer] Address [facility] [id number] [address] [place] [address] Care Team Providers Care Cableway Operator Name Role Phone JulioRohith gramajo Mario KAPOOR Primary Care Provider [phone] Encounter Details Date Type Department Care Team (Late st Contact Info) Description 09/30/2022 Orders Only [facility] [address] [address] Cami Phillip CMA Ex-cigarette smoker Social History [...] often do you attend chur ch or caodaism services? Never 08/25/2022 Do you belong to [...] Answer Date Recorded Total Score 0 08/25/2022 [facility] [place] of Occupat ional Health - Occupational Stress [...] documented as of this encounter Care Teams Cableway Operator Relationship Specialty Start Date End Date Rohith Archer DO [address] [facility] [place] [address] PCP - General Family Medicine 06/02/22 documented as of this encounter
--- OUTSIDE RECORDS SUMMARY | 2025-02-01 14:57 | XMS_ITS | Encounter Summary ---
Author Organization [facility] tem Address [facility] [place]-[id number] [address] [place] [address] Care Team Providers Care Service Planner Name Role Phone Rohith Archer DO Primary Care Provider [phone] Encounter Details Date Type Department Care Team (Late st Contact Info) Description 08/01/2022 Telephone [facility] [address] [place] [address] Cami Phillip CMA Social History Tobacco Use [...] on filedocumented in this encounter Care Teams Service Planner Relationship Specialty Start Date End Date Rohith Archer DO [address], [facility] [place] [address] PCP - General Family Medicine 06/02/22 documented as of this encounter
--- OUTSIDE RECORDS SUMMARY | 2025-02-01 14:57 | XMS_ITS | Encounter Summary ---
Author Organization [employer] tem Address [facility] [place][id number] [address] [place] [address] Care Team Providers Care Manufacturing Millwright Name Role Phone JulioRohith gramajo Mario KAPOOR Primary Care Provider [phone] Encounter Details Date Type Department Care Team (Late st Contact Info) Description 01/27/2025 Orders Only [facility] - [facility] Medicine [address] [address] Cami Phillip CMA Chronic bilateral low back pain without sciatica; Acute pain of left shoulder Social History Tobacco Use Types Packs/Day Years Used Date Smoking Tobacco: Former Cigarettes 1 47 0 11/17/1973 - 11/28/2020 Smokeless Tobacco: Never Alcohol Use Standard Drinks/Week Comments Never 0 (1 standard drink = 0.6 oz pur e alcohol) [facility] Utilities Answer Date Recorded In the past 12 months has [employer], gas, oil, or water company threatened [...] often do you attend chur ch or sabianist services? Never 08/25/2022 Do you belong to any clubs o r organizations such as faith groups, unions, fraternal or athletic groups, or [...] Answer Date Recorded Total Score 0 01/19/2025 [facility] of Occupat ional [...] Recorded Do you need help finding a [facility] career center and/or a training program? No [...] Shoulder Left Computed Radiography Rohith Archer DO [facility] ORDER [place] Final Result * X-ray spine lumbar 2 or 3 views (01/27/2025 11:02 AM EDT) Anatomical Region Laterality Modality MSK, Neuro, Spine, L-spine N/A Compu earl Radiography Rohith Archer DO [facility] ORDER [place] Final Result documented in this encounter Visit Diagnoses Diagnosis Chronic bilateral low back pain without sciatica Acute pain of left shoulder documented in this encounter Additional Health Concerns Assessment Noted Time PHQ-9 Depression Total Score: 0 01/20/20 25 3:18 PM EDT documented as of this encounter Care Teams Manufacturing Millwright Relationship Specialty Start Date End Date Rohith Archer DO [address] [facility], [place] [address] PCP - General Family Medicine 06/02/22 documented as of this encounter
--- NOTE | 2025-02-01 15:33 | PM.CN ---
Consult Note: HPI Data of Consult Patient: new to practice Consult date: 02/01/25 Requesting Physician: Selena Boykin NP Primary Care Provider: RELL JEFFERSON Consult Narrative Reason for consult: left shoulder and low back pain Narrative: Letitia Angeles a pleasant 64 year old female presents for evaluation of chronic left shoulder and low back pain. Pt has had longstanding shoulder pain > 6 months and low back pain > 1 year. recent xray imaging of left shoulder reveals mild OA and lumbar xray reveals multilevel degenerative changes. Pt does not recall an injury/sudden onset to pain, works in a factory with repetetive movements. Pain today 3/10 increasing to 8/10 with doing dishes, activity, standing, walking, lifting, weather changes, and sleep. denies numbness, tingling, weakness to BUE and BLE but notes severe mariana horses in BLE. has trialed aleve, motrin, and tylenol without benefit. does not like taking medications. has failed > 6 weeks of HEP for left shoulder pain, continues to endorse limited ROM and pain. has not attempted PT for low back. cc:: CC: Selena Boykin NP Review of Systems ROS Musculoskeletal Reports: [facility] Medical History (Updated 02/01/25 @ 15:39 by Selena Boykin NP) FHx: cholecystectomy ?Z83.79 - Family history of other diseases of the digestive system (ICD-10) Surgical History H/O tubal ligation ?Z98.51 - Tubal ligation status (ICD-10) Hx of tonsillectomy ?Z90.89 - Acquired absence of other organs (ICD-10) H/O basal cell carcinoma excision ?Z98.890 - Other specified postprocedural states (ICD-10) ?Z85.828 - Personal history of other malignant neoplasm of skin (ICD-10) Family History Other Family history of COPD (chronic obstructive pulmonary disease) Family history of cancer Family history of myocardial infarction Social History Within the past year, how often did you have a drink containing alcohol: never Score interpretation: A score less than 3 is consistent with normal alcohol consumption. Smoking status: Former smoker Non-prescribed substance use: denies use Previous occupational history: [employer] Highest level of school completed/degree received: some college, no degree Little interest or pleasure in doing things: not at all Feeling down, depressed, or hopeless: not at all Meds Home Medications and Allergies Allergies Allergy/AdvReac Type Severity Reaction Status Date / Time No Known Drug Allergies Allergy Verified 01/13/25 16:54 Exam Constitutional Documenting provider has reviewed patient's vital signs: yes Common normals: no apparent distress, oriented x3, healthy appearing, alert and well nourished General appearance: cooperative HENMT Common normals: normocephalic, hearing grossly normal bilaterally and moist oral mucous membranes Head and scalp: normocephalic Eye Common normals: PERRL Pupil: PERRL Neck & C-Spine Common normals: full ROM General: normal visual inspection Chest Common normals: inspection of chest normal Respiratory Common normals: normal respiratory effort, no retractions and no use of accessory muscles Back & Pelvis Lumbar spine/lower back: pain with ROM, lumbar spinal tenderness and straight leg raise negative bilaterally Other: increased low back pain and cramping of BLE with standing and walking positive facet loading Extremity Left upper extremity: shoulder joint Other: limited ROM with crossbody adduction and overhead reaching. positive empty can, posterior liftoff, and apleys scratch test stregth 4/5 in LUE and 5/5 in RUE Neuro Common normals: oriented x3 Sensorium/orientation: alert Psych Common normals: mental status grossly normal, thought process normal, cooperative, affect normal, speech normal and activity/motor behavior normal Speech: normal speech Thought process: normal thought process Results Additional Findings Additional findings: If on a controlled substance or opioids, I have checked an OARRS report on this patient and there are no aberrancies noted in the prescribing history.??If on a controlled substance or opioid a drug screen was completed and reviewed within the last year, and if there has not been a drug screen completed we ordered one today to monitor higher risk, state monitored pain medication use. As part of providing excellent, safe, comprehensive care, the following was completed at our patient's visit: 1. A medication reconciliation and review to ensure accurate knowledge of current/active medications, including asking our patients to inform us about any [id number] medications or herbal remedies/nutritional supplements/alternative remedies. 2. A review to specifically ensure our patients have had annual screening for screening for depression, screening for tobacco use, and screening for unhealthy alcohol use. For concerning screenings had a discussion with the patient, provided patient education, and recommended follow-up with primary care provider when appropriate. If patient noted with a risk of falling, they received education on strength, gait, and balance training to prevent future risk of falling. Portions of this note may have been carried over from the previous visit and updated as appropriate. Please note this office utilizes paper charting in addition to the electronic medical record. A list of current medications, vitals, and PMH is available there as the clinical staff outside of myself do not have access to [employer] charting during the clinic day operations. As part of providing quality comprehensive care the current medications, vitals, and PMH were reviewed in the paper chart. Assessment and Plan Assessment and Plan (1) Osteoarthritis of left shoulder: (2) Lumbar spondylosis: (3) Lumbar stenosis with neurogenic claudication: (4) Myalgia, other site: Plan left shoulder injection with Dr Kennedy PT for lumbar stenosis with NC and lumbar spondylosis start baclofen 5-10mg HS PRN pain/spasms f/u after shoulder injection and after PT complete
--- OUTSIDE RECORDS SUMMARY | 2025-02-01 16:48 | XMS_ITS | CCD ---
Author Organization [facility] Inform ion [facility] Care Team Providers Care Account Associate Name Role Phone Janice Rahman Unavailable DO Rohith Archer Primary Care Provider JETHRO Rahman Attending Provider Janice Rahman Attending Unavailable Janice Rahman Admitting Unavailable Rohith Archer Primary Care Unavailable FURLONG, DR ROHITH Martin Admitting Unavailable FURLONG, DR ROHITH Martin Attending Unavailable FURLONG, DR ROHITH Martin Consulting Unavailable FURLONG, DR ROHITH Martin Primary Care Unavailable MOUND BAYOU, DR LOLIS Haider Consulting Unavailable FURLONG, DR ROHITH Martin Primary Care Unavailable FURLONG, DR ROHITH Martin Admitting Unavailable FURLONG, DR ROHITH Martin Attending Unavailable FURLONG, DR ROHITH Martin Consulting Unavailable ZIEBER, DR GABRIEL Toro Consulting Unavailable ROHITH ARCHER Referring Unavailable NILLRohit Attending Unavailable TANGLRohit Attending Unavailable SARYA GEORGE Attending Unavailable ANAIS MUÑOZ Referring Unavailable [...] Eveline I Attending Unavailable Furlong Rohith [facility] Tramaine Ozuna MD, Eveline I Admitting Unavailable Sulma RODRÍGUEZ, J I Attending [facility] Rohith [facility] Tramaine Ozuna MD, J I Attending [facility] Tramaine Ozuna MD, J I Attending Unavailable Sulma RODRÍGUEZ, J I Attending [facility] Tramaine Ozuna MD, J I Attending [facility] Tramaine Ozuna MD, J I Attending [facility] Tramaine nava [facility] Tramaine Ozuna MD, J I Attending [facility] DO Rohith Martin Primary Care Provider [place] Rohith K[place]OOR Primary Care Provider ROHITH ARCHER Mario Attending [facility] ROHIHT ARCHER Ref[facility] Unavailable Allergies Allergy Classification Reported Allergen(s) Allergy Type Date of Onset Reaction(s) Facility (1 source) Unable to Assess Drug allergy (disorder) [facility] Repository (1 source) No Known Medication Allergies; Translations: [No Known Medication Allergies] Propensity to adverse reactions (disorder) [facility] Repository Medications Current Medications Medication Drug Class(es) Dates Sig (Normalized) Sig (Original) atorvastatin 20 mg oral tablet (12 sources) HMG-CoA Reductase Inhibitor Start: 01-31-2025 take 1 tablet by mouth in the morning atorvastatin (LIPITOR) 20 mg tablet Take 1 tablet (20 mg total) by mouth in the morning. 90 tablet 3 01/31/2025 Active Start: 08-25-2022 End: 09-01-2023 take 1 tablet by mouth in the morning atorvastatin (LIPITOR) 20 mg tablet Indications: Mixed hyperlipidemia TAKE 1 TABLET (20 MG TOTAL) BY MOUTH IN THE MORNING 90 tablet 1 05/30/2023 09/01/2023 Discontinued (Side effects) Atorvastatin Asher cium Active azithromycin 250 mg oral tablet (1 source) Macrolide Antimicrobial Start: 11-30-2021 Azithromycin 250 MG 2 tablet on the first day, then 1 tablet daily for 4 days Orally Once a day for 5 day(s) Nov, Active calcium polycarbophil 625 mg oral tablet (13 sources) Start: 12-16-2022 polycarbophil (FIBER, CALCIUM POLYCARBOPHIL,) [...] / vilanterol 0.025 mg/actuat dry powder inhaler (4 sources) Anticholinergic, Corticosteroid, beta2-Adrenergic Agonist Start: 01-19-2025 take 1 puff(s) by inhalation in the morning fluticasone-umeclid in-vilanter (TRELEGY ELLIPTA) 100-62.5-25 mcg blister with device Inhale 1 puff in the morning. 1 each 01/19/2025 Active naproxen 500 mg oral tablet (3 sources) Nonsteroidal Anti-inflammatory Drug Start: 01-30-2025 take 1 tablet by mouth in the morning, then take 1 tablet by mouth at mealtime naproxen (NAPROSYN) 500 mg tablet Take 1 tablet (500 mg total) by mouth in the morning and 1 tablet (500 mg total) in the evening. Take with meals. 60 tablet 2 01/30/2025 Active predniSONE 20 mg oral tablet (2 [...] Drug Class(es) Dates Sig (Normalized) Sig (Original) [id number] 200 actuat albuterol 0.09 mg/actuat metered dose inhaler (8 sources) beta2-Adrenergic Agonist Start: 04-23-2023 End: 02-22-2024 take 2 puff(s) by inhalation every six hours as needed albuterol (PROVENTIL HFA;VENTOLIN HFA) 90 mcg/actuation inhaler Inhale 2 puffs every 6 (six) hours as needed. 04/23/2023 02/22/2024 Discontinued (Therapy completed) celecoxib 200 mg oral capsule (2 sources) [...] 2 puff(s) by inhalation in the morning glycopyrrolate-fo rmoteroL (BEVESPI AEROSPHERE) 9-4.8 mcg HFA aerosol inhaler [...] the morning. 02/22/2024 Discontinued (Therapy completed) vit C,H-Sr-oetgf-lutein -zeaxan (PRESERVISION AREDS-2) 250-90-40-1 mg capsule (3 sources) End: 01-19-2025 vit C,C-Ng-uxvko-lute in-zeaxan (PRESERVISION AREDS-2) 250-90-40-1 mg capsule Taking,but [...] Chronic Chronic obstructive pulmonary disease and bronchiectasis (9 sources) Chronic obstructive lung disease; Translations: [Chronic obstructive pulmonary disease, unspecified] Onset: 02-22-2024 02-22-2024 Chronic Disorders of lipid metabolism (14 sources) Mixed hyperlipidemia; Translations: [Mixed hyperlipidemia] Onset: [...] Onset: 01-19-2025 Chronic Other non-traumatic joint disorders (8 sources) Pain in left shoulder; Translations: [Pain in joint, shoulder region] Onset: 01-19-2025 07-31-2023 Episodic Pleurisy; pneumothorax; pulmonary collapse (1 source) Pleurisy Episodic Retinal detachments; defects; vascular occlusion; and retinopathy (13 sources) 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; Translations: [Exudative age-related macular degeneration, right eye, stage unspecified] Onset: 07-03-2020 06-15-2023 Chronic Spondylosis; intervertebral disc disorders; other back problems (3 sources) Lumbar spondylosis; Translations: [Spondylosis without myelopathy or radiculopathy, lumbar region] 01-31-2025 Chronic Spondylosis; intervertebral disc disorders; other back problems (12 sources) Cervicalgia; Translations: [Chronic low back pain] Onset: 10-12-2021 Episodic Unclassified (1 source) Low back pain, unspecified; Translations: [Low back pain, unspecified] Onset: 01-19-2025 Unclassified (1 source) wellness Onset: 01-19-2025 Unclassified (1 source) Pre-op Exam Onset: 02-22-2024 Unclassified (2 sources) Acute pain of left shoulder 01-31-2025 Past or Other Problems Problem Classification Problem Date Documented Da te Episodic/Chronic Mood disorders (14 sources) Mood disorders Onset: 12-08-2022 Resolved: 01-19-2025 [...] Episodic Other nutritional; endocrine; and metabolic disorders (14 sources) Overweight; Translations: [Overweight] Onset: 08-25-2022 Resolved: 02-22-2024 08-25-2022 Episodic Other screening for suspected conditions (not mental disorders or infectious disease) (1 source) Patient encounter status; Translations: [Encounter for screening mammogram for malignant neoplasm of breast] 09-01-2023 Episodic Screening and history of mental health and substance abuse codes (20 sources) Personal history of nicotine dependence; Translations: [Ex-cigarette smoker] Onset: 08-25-2022 Episodic Viral infection (1 source) COVID-19 Onset: 11-30-2021 Resolved: 11-30-2021 Results Test Name Value Interpretation Reference Range Facility COMPREHENSIVE METABOLIC PANE [facility] 01-19-2025 Albumin [Mass/Vol] 4.5 g/dL Normal 3.2-5.3 [facility] Comment on above: Performed By: #### C MP #### [facility] ([facility]) [address] [place] [address] VIR ALP [Catalytic activity/Vol] 88 U/L Normal 39-130 [facility] Comment on above: Performed By: #### C MP #### [facility] ([facility]) [address] [place] [address] VIR ALT [Catalytic activity/Vol] 15 U/L Normal <=31 [facility] Comment on above: Performed By: #### C MP #### [facility] ([facility]) [address] [place] [address] VIR Anion gap [Moles/Vol] 11 mmol/L Normal 5-15 [facility] Comment on above: Performed By: #### C MP #### [facility] ([facility]) [address] [place] [address] VIR AST [Catalytic activity/Vol] 20 U/L Normal <=41 [facility] Comment on above: Performed By: #### C MP #### [facility] ([facility]) [address] [place] [address] VIR Bilirubin [Mass/Vol] 0.5 mg/dL Normal 0.3-1.[address] [facility] Comment on above: Performed By: #### C MP #### [facility] ([facility]) [address] [place] [address] VIR Calcium [Mass/Vol] 9.6 mg/dL Normal 8.5-10.5 [facility] Comment on above: Performed By: #### C MP #### [facility] ([facility]) [address] [place] [address] VIR Chloride [Moles/Vol] 102 mmol/L Normal 98-[address] [facility] Comment on above: Performed By: #### C MP #### [facility] ([facility]) [address] [place] [address] VIR CO2 [Moles/Vol] 28 mmol/L Normal 22-32 [facility] Comment on above: Performed By: #### C MP #### [facility] ([facility]) [address] [place] [address] VIR Creatinine [Mass/Vol] 0.68 mg/dL Normal 0.40-1.00 [facility] Comment on above: Result Comment: METH OD TRACEABLE TO IDMS STANDARD Performed By: #### C MP #### [facility] ([facility]) [address] [place] [address] VIR EGFR (CKD-EPI) NON-RACE DEPENDENT >^90 Normal >=60 [facility] Comment on above: Result Comment: Repo rted eGFR is based on the CKD-EPI 2020 equation that does not use a race coefficient. Performed By: #### C MP #### [facility] ([facility]) [address] [place] [address] VIR Glucose [Mass/Vol] 99 mg/dL Normal 65-99 [facility] Comment on above: Performed By: #### C MP #### [facility] ([facility]) [address] [place] [address] VIR Potassium [Moles/Vol] 3.9 mmol/L Normal 3.5-5.0 [facility] Comment on above: Performed By: #### C MP #### [facility] ([facility]) [address] [place] [address] VIR Protein [Mass/Vol] 7.2 g/dL Normal 6.0-8.0 [facility] Comment on above: Performed By: #### C MP #### [facility] ([facility]) [address] [place] [address] VIR Sodium [Moles/Vol] 141 mmol/L Normal 134-146 [facility] Comment on above: Performed By: #### C MP #### [facility] ([facility]) [address] [place] [address] VIR Urea nitrogen [Mass/Vol] 15 mg/dL Normal 5-27 [facility] Comment on above: Performed By: #### C MP #### [facility] ([facility]) [address] [place] [address] VIR Comprehensive metabolic pane ish 01-19-2025 Albumin [Mass/Vol] 4.5 g/dL 3.2 - 5.3 g/dL [facility] ALP [Catalytic activity/Vol] 88 U/L 39 - 130 U/L [facility] ALT No additional P-5'-P [Catalytic activity/Vol] 15 U/L NINF - 31 U/L [facility] Anion gap [Moles/Vol] 11 mmol/L 5 - 15 mmol/L [facility] AST [Catalytic activity/Vol] 20 U/L NINF - 41 U/L [facility] Bilirubin [Mass/Vol] 0.5 mg/dL 0.3 - 1 .2 mg/dL [facility] Calcium [Mass/Vol] 9.6 mg/dL 8.5 - 10. 5 mg/dL [facility] Chloride [Moles/Vol] 102 mmol/L 98 - 10 9 mmol/L [facility] CO2 [Moles/Vol] 28 mmol/L 22 - 32 mmol/L [facility] Creatinine [Mass/Vol] 0.68 mg/dL 0.40 - 1.00 mg/dL [facility] Comment on above: METHOD TRACEABLE TO IDMS STANDARD EGFR Non-Race Dependent - PINF [facility] Comment on above: Reported eGFR is bas ed on the CKD-EPI 2020 equation that does not use a race coefficient. Glucose [Mass/Vol] 99 mg/dL 65 - 99 mg/dL [facility] Potassium [Moles/Vol] 3.9 mmol/L 3.5 - 5.0 mmol/L [facility] Protein [Mass/Vol] 7.2 g/dL 6.0 - 8.0 g/dL [facility] Sodium [Moles/Vol] 141 mmol/L 134 - 146 mmol/L [facility] Urea nitrogen [Mass/Vol] 15 mg/dL 5 - 27 mg/dL [facility] LIPID PROFILEon 01-19-2025 Cholesterol [Mass/Vol] 242 mg/dL High 150-200 [facility] Comment on above: Performed By: #### L IPR #### [facility] ([facility]) [address] [place] [address] VIR Cholesterol in HDL [Mass/Vol] 37 mg/dL Low >39 [facility] Comment on above: Result Comment: HDL <40 mg/dL - High Risk HDL > or = 40mg/dL- Desirable HDL >60 mg/dL - Negative Risk Performed By: #### L IPR #### [facility] ([facility]) [address] [place] [address] VIR Cholesterol in LDL [Mass/Vol] 177 mg/dL High <130 [facility] Comment on above: Result Comment: LDL <100 mg/dL - Desirable LDL >160 mg/dL - High Risk Performed By: #### L IPR #### [facility] ([facility]) [address] [place] [address] VIR CHOLESTEROL:HDL 6.5 High 1.0-5.0 [facility] Comment on above: Performed By: #### L IPR #### [facility] ([facility]) [address] [place] [address] VIR Triglyceride [Mass/Vol] 138 mg/dL Normal 27-150 [facility] Comment on above: Performed By: #### L IPR #### [facility] ([facility]) [address] [place] [address] VIR VERY LOW LIPOPROTEIN 28 mg/dL Normal 0-[address] [facility] Comment on above: Performed By: #### L IPR #### [facility] ([facility]) [address] [place] [address] VIR Lipid profileon 01-19-2025 Cholesterol [Mass/Vol] 242 mg/dL High 150 - 200 mg/dL [facility] Cholesterol in HDL [Mass/Vol] 37 mg/dL Low 39 - PINF mg/dL [facility] Comment on above: HDL <40 mg/dL - High Risk HDL > or = 40mg/dL- Desirable HDL >60 mg/dL - Negative Risk Cholesterol in HDL [Mass/Vol] 6.5 mg/dL High 1.0 - 5.0 [facility] Cholesterol in LDL [Mass/Vol] 177 mg/dL High NINF - 130 mg/dL [facility] Comment on above: LDL <100 mg/dL - Korey irable LDL >160 mg/dL - High Risk Cholesterol in VLDL [Mass/Vol] 28 mg/dL 0 - 30 mg/dL [facility] Interpretation and review of laboratory results Abnormal [facility] Triglyceride [Mass/Vol] 138 mg/dL 27 - 150 mg/dL [facility] MAGNESIUMon 01-19-2025 Magnesium [Mass/Vol] 2.1 mg/dL Normal 1.8-2.[address] [facility] Comment on above: Performed By: #### M G #### [facility] ([facility]) [address] [place] [address] VIR Magnesiumon 01-19-2025 Magnesium [Mass/Vol] 2.1 mg/dL 1.8 - 2 .6 mg/dL 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 Home/Environment Lives with [...] 03/10/24 15:30 EDT Electronically signed by Angélica oCrtez 03/03/2024 14:05 EDT Normal [facility] .eGFRon 02-28-2024 GFR/1.73 sq M.predicted MDRD (S/P/Bld) [Vol rate/Area] mL/min/{1.73_m2} Normal >=60 [facility] Comment on above: Result Comment: [facility] have implemented the eGFR calculation approach [...] years Performed By: #### A SA #### [facility] (UNKNOWN) [address] [place] [address] CBC w/ Diffon 02-28-2024 Erythrocyte distribution width (RBC) [Ratio] 13.3 % Normal 11.6-14.8 [facility] Comment on above: Performed By: #### A SA #### [facility] ([facility]) [address] [place] [address] Hematocrit (Bld) [Volume fraction] 36.8 % Normal 36.0-46.0 [facility] Comment on above: Performed By: #### A SA #### [facility] ([facility]KNOWN) [address] [place] [address] Hemoglobin (Bld) [Mass/Vol] 12.2 g/dL Normal 12.0-16.0 [facility] Comment on above: Performed By: #### A SA #### [facility] ([facility]) [address] [place] [address] MCH (RBC) [Entitic mass] 30.8 pg Normal 27.0-35.0 [facility] Comment on above: Performed By: #### A SA #### [facility] ([facility]) [address] [place] [address] MCHC 33.0 % Normal 31.0-37.0 [facility] Comment on above: Performed By: #### A SA #### [facility] ([facility]) [address] [place] [address] MCV (RBC) [Entitic vol] 93.3 fL Normal 80.0-100.0 [facility] Comment on above: Performed By: #### A #### [facility] ([facility]) [address] [place] [address] Platelet 296 x10*3/mcL Normal 150-450 [facility] Comment on above: Performed By: #### A #### [facility] ([facility]) [address] [place] [address] Platelet mean volume (Bld) [Entitic vol] 7.8 fL Normal 6.7-10.6 [facility] Comment on above: Performed By: #### A #### [facility] ([facility]) [address] [place] [address] RBC 3.95 x10*6/mcL Normal 3.80-5.20 [facility] Comment on above: Performed By: #### A #### [facility] ([facility]) [address] [place] [address] WBC 8.4 x10*3/mcL Normal 4.5-11.0 [facility] Comment on above: Performed By: #### A #### [facility] ([facility]) [address] [place] [address] CMPon 02-28-2024 Albumin [Mass/Vol] 3.4 g/dL Normal 3.2-4.9 [facility] Comment on above: Performed By: #### A CHRISTINE #### [facility] ([facility]) [address] [place] [address] Albumin/Globulin [Mass ratio] 1.3 {ratio} Normal 1.1-2.2 [facility] Comment on above: Performed By: #### A CHRISTINE #### [facility] ([facility]) [address] [place] [address] Alk Phos 54 IU/L Normal 32-91 [facility] Comment on above: Performed By: #### A CHRISTINE #### [facility] ([facility]) [address] [place] [address] ALT [Catalytic activity/Vol] 24 U/L Normal 14-54 [facility] Comment on above: Performed By: #### A CHRISTINE #### [facility] ([facility]) [address] [place] [address] Anion gap [Moles/Vol] 10 mmol/L Normal 4-12 [facility] Comment on above: Performed By: #### A CHRISTINE #### [facility] ([facility]) [address] [place] [address] AST [Catalytic activity/Vol] 25 U/L Normal 15-41 [facility] Comment on above: Performed By: #### A CHRISTINE #### [facility] ([facility]) [address] [place] [address] Bili Total 0.5 mg/dL Normal 0.3-1.2 [facility] Comment on above: Performed By: #### A CHRISTINE #### [facility] ([facility]) [address] [place] [address] Calcium [Mass/Vol] 8.8 mg/dL Normal 8.5-10.3 [facility] Comment on above: Performed By: #### A CHRISTINE #### [facility] ([facility]) [address] [place] [address] Chloride [Moles/Vol] 100 mmol/L Normal 98-110 [facility] Comment on above: Performed By: #### A CHRISTINE #### [facility] ([facility]) [address] [place] [address] CO2 [Moles/Vol] 29 mmol/L Normal 22-32 [facility] Comment on above: Performed By: #### A CHRISTINE #### [facility] ([facility]) [address] [place] [address] Creatinine [Mass/Vol] 0.85 mg/dL Normal 0.44-1.03 [facility] Comment on above: Performed By: #### A CHRISTINE #### [facility] ([facility]) [address] [place] [address] Glucose [Mass/Vol] 108 mg/dL High 70-99 [facility] Comment on above: Performed By: #### A CHRISTINE #### [facility] ([facility]) [address] [place] [address] Potassium [Moles/Vol] 4.3 mmol/L Normal 3.4-4.8 [facility] Comment on above: Performed By: #### A CHRISTINE #### [facility] ([facility]) [address] [place] [address] Protein [Mass/Vol] 6.0 g/dL Low 6.5-8.1 [facility] Comment on above: Performed By: #### A CHRISTINE #### [facility] ([facility]) [address] [place] [address] Sodium [Moles/Vol] 139 mmol/L Normal 133-142 [facility] Comment on above: Performed By: #### A CHRISTINE #### [facility] ([facility]) [address] [place] [address] Urea nitrogen [Mass/Vol] 11 mg/dL Normal 8-26 [facility] Comment on above: Performed By: #### A CHRISTINE #### [facility] ([facility]) [address] [place] [address] Urea nitrogen/Creatinine [Mass ratio] 12.9 mg/mg Normal 10.0-20.0 [facility] Comment on above: Performed By: #### A CHRISTINE #### [facility] ([facility]) [address] [place] [address] Diff Autoon 02-28-2024 Baso Absolute 0.1 x10*3/mcL Normal 0.0-0.2 [facility] Comment on above: Performed By: #### A CHRISTINE #### [facility] ([facility]) [address] [place] [address] Basophils/100 WBC (Bld) 0.8 % Normal 0.0-1.5 [facility] Comment on above: Performed By: #### A CHRISTINE #### [facility] ([facility]) [address] [place] [address] Eos Absolute 0.1 x10*3/mcL Normal 0.0-0.4 [facility] Comment on above: Performed By: #### A CHRISTINE #### [facility] ([facility]) [address] [place] [address] Eosinophils/100 WBC (Bld) 0.8 % Normal 0.0-5.4 [facility] Comment on above: Performed By: #### A CHRISTINE #### [facility] (UNKNOWN) [address] [place] [address] Lymph Absolute 2.2 x10*3/mcL Normal 1.0-4.8 [facility] Comment on above: Performed By: #### A CHRISTINE #### [facility] ([facility]KNOWN) [address] [place] [address] Lymphocytes/100 WBC (Bld) 26.1 % Low 27.2-40.8 [facility] Comment on above: Performed By: #### A CHRISTINE #### [facility] ([facility]KNOWN) [address] [place] [address] [place] Absolute 0.8 x10*3/mcL Normal 0.1-1.1 [facility] Comment on above: Performed By: #### A CHRISTINE #### [facility] ([facility]KNOWN) [address] [place] [address] Monocytes/100 WBC (Bld) 9.5 % Normal 3.7-11.9 [facility] Comment on above: Performed By: #### A CHRISTINE #### [facility] (UNKNOWN) [address] [place] [address] Neutro Absolute 5.3 x10*3/mcL Normal 1.8-7.7 [facility] Comment on above: Performed By: #### A CHRISTINE #### [facility] (UNKNOWN) [address] [place] [address] Neutro Auto 62.8 % Normal 47.2-70.8 [facility] Comment on above: Performed By: #### A CHRISTINE #### [facility] (UNKNOWN) [address] [place] [address] Inpatient Clinical Summaryon 02-28-2024 Inpatient Clinical Summary [facility] [address] [place] [address] [address] Clinical Summary Person Information Name: Petrona Angeles Age: 63 Years : 1960 Sex: Female PCP: Rohith Archer DO Marital Status: Single Phone: PCP: Race: White Ethnicity: Not or Language: Moroccan Visit Id: Visit Reason: Speciality: Acuity: Enc Type: Inpatient Med Service: Surgery Arrival: 02/26/2024 08:53:02 Discharge: Dispo Type: Address: [address] [place] [address] [address] [facility] [id number] Diagnosis: Post-op pain Discharged To: Home Treatments: [...] range between ( 27.2 and 40.8 ) [place] Auto: 9.5 % -- Normal range between [...] range between ( 36.0 and 46.0 ) [place] Absolute: 0.8 x10 MCH: 30.8 pg -- [...] No Immunizations (more content not included)... Normal [facility] Magnesiumon 02-28-2024 Magnesium [Mass/Vol] 1.8 mg/dL Normal 1.7-2.4 [facility] Comment on above: Performed By: #### A #### [facility] ([facility]) [address] [place] [address] Phosphoruson 02-28-2024 Phosphate [Mass/Vol] 2.7 mg/dL Normal 2.5-4.6 [facility] Comment on above: Performed By: #### A #### [facility] ([facility]KNOWN) [address] [place] [address] Surgical Progress Noteon Surgical Progress Note Patient tolerating diet did not like her arm at this morning no nausea no vomiting No gas or BM yet Pain is well-controlled Ambulating in the halls Status post sigmoidectomy and rectopexy Awaiting bowel function Discharge this afternoon versus tomorrow Electronically signed by Iván Sapp MD 02/28/24 10:33 EDT Normal [facility] .eGFRon 02-27-2024 GFR/1.73 sq M.predicted MDRD (S/P/Bld) [Vol rate/Area] mL/min/{1.73_m2} Normal >=60 [facility] Comment on above: Result Comment: [facility] have implemented the eGFR calculation approach [...] years Performed By: #### A SA #### [facility] (UNKNOWN) [address] [place] [address] CBC w/ Diffon 02-27-2024 Erythrocyte distribution width (RBC) [Ratio] 12.8 % Normal 11.6-14.8 [facility] Comment on above: Performed By: #### A SA #### [facility] ([facility]) [address] [place] [address] Hematocrit (Bld) [Volume fraction] 36.9 % Normal 36.0-46.0 [facility] Comment on above: Performed By: #### A SA #### [facility] ([facility]KNOWN) [address] [place] [address] Hemoglobin (Bld) [Mass/Vol] 12.6 g/dL Normal 12.0-16.0 [facility] Comment on above: Performed By: #### A SA #### [facility] ([facility]KNOWN) [address] [place] [address] MCH (RBC) [Entitic mass] 31.4 pg Normal 27.0-35.0 [facility] Comment on above: Performed By: #### A SA #### [facility] ([facility]KNOWN) [address] [place] [address] MCHC 34.1 % Normal 31.0-37.0 [facility] Comment on above: Performed By: #### A SA #### [facility] ([facility]KNOWN) [address] [place] [address] MCV (RBC) [Entitic vol] 92.0 fL Normal 80.0-100.0 [facility] Comment on above: Performed By: #### A SA #### [facility] ([facility]KNOWN) [address] [place] [address] Platelet 329 x10*3/mcL Normal 150-450 [facility] Comment on above: Performed By: #### A SA #### [facility] (UNKNOWN) [address] [place] [address] Platelet mean volume (Bld) [Entitic vol] 7.9 fL Normal 6.7-10.6 [facility] Comment on above: Performed By: #### A SA #### [facility] ([facility]KNOWN) [address] [place] [address] RBC 4.01 x10*6/mcL Normal 3.80-5.20 [facility] Comment on above: Performed By: #### A #### [facility] ([facility]KNOWN) [address] [place] [address] WBC 11.7 x10*3/mcL High 4.5-11.0 [facility] Comment on above: Performed By: #### A #### [facility] ([facility]) [address] [place] [address] CMPon 02-27-2024 Albumin [Mass/Vol] 3.3 g/dL Normal 3.2-4.9 [facility] Comment on above: Performed By: #### A CHRISTINE #### [facility] ([facility]KNOWN) [address] [place] [address] Albumin/Globulin [Mass ratio] 1.2 {ratio} Normal 1.1-2.2 [facility] Comment on above: Performed By: #### A CHRISTINE #### [facility] ([facility]KNOWN) [address] [place] [address] Alk Phos 62 IU/L Normal 32-91 [facility] Comment on above: Performed By: #### A CHRISTINE #### [facility] ([facility]KNOWN) [address] [place] [address] ALT [Catalytic activity/Vol] 15 U/L Normal 14-54 [facility] Comment on above: Performed By: #### A CHRISTINE #### [facility] ([facility]KNOWN) [address] [place] [address] Anion gap [Moles/Vol] 8 mmol/L Normal 4-12 [facility] Comment on above: Performed By: #### A CHRISTINE #### [facility] ([facility]KNOWN) [address] [place] [address] AST [Catalytic activity/Vol] 19 U/L Normal 15-41 [facility] Comment on above: Performed By: #### A CHRISTINE #### [facility] ([facility]KNOWN) [address] [place] [address] Bili Total 0.9 mg/dL Normal 0.3-1.2 [facility] Comment on above: Performed By: #### A CHRISTINE #### [facility] ([facility]KNOWN) [address] [place] [address] Calcium [Mass/Vol] 8.5 mg/dL Normal 8.5-10.3 [facility] Comment on above: Performed By: #### A CHRISTINE #### [facility] ([facility]KNOWN) [address] [place] [address] Chloride [Moles/Vol] 101 mmol/L Normal 98-110 [facility] Comment on above: Performed By: #### A CHRISTINE #### [facility] ([facility]KNOWN) [address] [place] [address] CO2 [Moles/Vol] 23 mmol/L Normal 22-32 [facility] Comment on above: Performed By: #### A CHRISTINE #### [facility] ([facility]KNOWN) [address] [place] [address] Creatinine [Mass/Vol] 0.79 mg/dL Normal 0.44-1.03 [facility] Comment on above: Performed By: #### A CHRISTINE #### [facility] ([facility]KNOWN) [address] [place] [address] Glucose [Mass/Vol] 119 mg/dL High 70-99 [facility] Comment on above: Performed By: #### A CHRISTINE #### [facility] ([facility]KNOWN) [address] [place] [address] Potassium [Moles/Vol] 4.2 mmol/L Normal 3.4-4.8 [facility] Comment on above: Performed By: #### A CHRISTINE #### [facility] ([facility]KNOWN) [address] [place] [address] Protein [Mass/Vol] 6.0 g/dL Low 6.5-8.1 [facility] Comment on above: Performed By: #### A CHRISTINE #### [facility] ([facility]KNOWN) [address] [place] [address] Sodium [Moles/Vol] 132 mmol/L Low 133-142 [facility] Comment on above: Performed By: #### A CHRISTINE #### [facility] ([facility]) [address] [place] [address] Urea nitrogen [Mass/Vol] 16 mg/dL Normal 8-26 [facility] Comment on above: Performed By: #### A CHRISTINE #### [facility] ([facility]KNOWN) [address] [place] [address] Urea nitrogen/Creatinine [Mass ratio] 20.3 mg/mg High 10.0-20.0 [facility] Comment on above: Performed By: #### A CHRISTINE #### [facility] ([facility]KNOWN) [address] [place] [address] Diff Autoon 02-27-2024 Baso Absolute 0.0 x10*3/mcL Normal 0.0-0.2 [facility] Comment on above: Performed By: #### A #### [facility] ([facility]KNOWN) [address] [place] [address] Basophils/100 WBC (Bld) 0.3 % Normal 0.0-1.5 [facility] Comment on above: Performed By: #### A #### [facility] ([facility]KNOWN) [address] [place] [address] Eos Absolute 0.0 x10*3/mcL Normal 0.0-0.4 [facility] Comment on above: Performed By: #### A #### [facility] ([facility]KNOWN) [address] [place] [address] Eosinophils/100 WBC (Bld) 0.0 % Normal 0.0-5.4 [facility] Comment on above: Performed By: #### A #### [facility] (UNKNOWN) [address] [place] [address] Lymph Absolute 0.9 x10*3/mcL Low 1.0-4.8 [facility] Comment on above: Performed By: #### A #### [facility] (UNKNOWN) [address] [place] [address] Lymphocytes/100 WBC (Bld) 7.4 % Low 27.2-40.8 [facility] Comment on above: Performed By: #### A SA #### [facility] (UNKNOWN) [address] [place] [address] [place] Absolute 0.9 x10*3/mcL Normal 0.1-1.1 [facility] Comment on above: Performed By: #### A SA #### [facility] (UNKNOWN) [address] [place] [address] Monocytes/100 WBC (Bld) 7.8 % Normal 3.7-11.9 [facility] Comment on above: Performed By: #### A SA #### [facility] (UNKNOWN) [address] [place] [address] Neutro Absolute 9.9 x10*3/mcL High 1.8-7.7 [facility] Comment on above: Performed By: #### A SA #### [facility] (UNKNOWN) [address] [place] [address] Neutro Auto 84.5 % High 47.2-70.8 [facility] Comment on above: Performed By: #### A SA #### [facility] (UNKNOWN) [address] [place] [address] Magnesiumon 02-27-2024 Magnesium [Mass/Vol] 1.6 mg/dL Low 1.7-2.4 [facility] Comment on above: Performed By: #### M G #### [facility] [address] [place] [address] Phosphoruson 02-27-2024 Phosphate [Mass/Vol] 3.8 mg/dL Normal 2.5-4.6 [facility] Comment on above: Performed By: #### A SA #### [facility] ([facility]KNOWN) [address] [place] [address] Surgical Progress Noteon Surgical Progress Note Patient [...] RODRÍGUEZ, Iván Kimble 02/27/24 10:53 EDT Normal [facility] Operative Reporton 4 Operative Report Indication for Surgery Rectal prolapse Preoperative Diagnosis Same Postoperative Diagnosis Sigmoid colectomy with rectopexy Operation Rectopexy Robotic X/Xi Resection Sigmoid Colon Robotic X/Xi Surgeon(s) Sulma RODRÍGUEZ, Eveline Valenzuela (Surgeon - Primary) Vending Machine Servicer Patito SOTO, Nae Felipe (Client Service Representative) Anesthesia General Juan Miguel Negron DO (Geothermal Technician) Estimated Blood Loss 15 mL Urine Output [...] in the right upper quadrant as an butcher assistant port. The patient was then placed [...] EEA stapler was then inserted by the butcher assistant into the proximal anterior aspect of the rectal stump just distal to staple line to allow for performing the anastomosis anteriorly wh (more content not included)... Normal [facility] .eGFRon 02-16-2024 GFR/1.73 sq M.predicted MDRD (S/P/Bld) [Vol rate/Area] mL/min/{1.73_m2} Normal >=60 [facility] Comment on above: Order Comment: Order added by Discern rule Result Comment: [facility] [facility] have implemented the eGFR calculation approach [...] Age = years Performed By: #### A [facility] #### [facility] (UNKNOWN) [address] [place] [address] GFR/1.73 sq M.predicted MDRD (S/P/Bld) [Vol rate/Area] mL/min/{1.73_m2} Normal >=60 [facility] Comment on above: Order Comment: Order added by Discern Rule. Result Comment: [facility] have implemented the eGFR calculation approach [...] years Performed By: #### A CHRISTINE #### [facility] ([facility]KNOWN) [address] [place] [address] ABO/Rhon 02-16-2024 ABO/Rh ABO/Rh: B POS Normal [facility] Comment on above: Performed By: #### A CHRISTINE #### [facility] ([facility]KNOWN) [address] [place] [address] ABSC Autoon 02-16-2024 ABSC Auto Negative Normal [facility] Comment on above: Performed By: #### A #### [facility] (UNKNOWN) [address] [place] [address] CBC w/ Diffon 02-16-2024 Erythrocyte distribution width (RBC) [Ratio] 13.0 % Normal 11.6-14.8 [facility] Comment on above: Performed By: #### A CHRISTINE #### [facility] (UNKNOWN) [address] [place] [address] Hematocrit (Bld) [Volume fraction] 41.7 % Normal 36.0-46.0 [facility] Comment on above: Performed By: #### A CHRISTINE #### [facility] (UNKNOWN) [address] [place] [address] Hemoglobin (Bld) [Mass/Vol] 14.4 g/dL Normal 12.0-16.0 [facility] Comment on above: Performed By: #### A CHRISTINE #### [facility] (UNKNOWN) [address] [place] [address] MCH (RBC) [Entitic mass] 31.8 pg Normal 27.0-35.0 [facility] Comment on above: Performed By: #### A CHRISTINE #### [facility] ([facility]KNOWN) [address] [place] [address] MCHC 34.4 % Normal 31.0-37.0 [facility] Comment on above: Performed By: #### A CHRISTINE #### [facility] ([facility]KNOWN) [address] [place] [address] MCV (RBC) [Entitic vol] 92.5 fL Normal 80.0-100.0 [facility] Comment on above: Performed By: #### A CHRISTINE #### [facility] ([facility]KNOWN) [address] [place] [address] Platelet 378 x10*3/mcL Normal 150-450 [facility] Comment on above: Performed By: #### A CHRISTINE #### [facility] ([facility]KNOWN) [address] [place] [address] Platelet mean volume (Bld) [Entitic vol] 6.9 fL Low 7.5-11.5 [facility] Comment on above: Performed By: #### A CHRISTINE #### [facility] ([facility]KNOWN) [address] [place] [address] RBC 4.51 x10*6/mcL Normal 3.80-5.20 [facility] Comment on above: Performed By: #### A CHRISTINE #### [facility] ([facility]KNOWN) [address] [place] [address] WBC 7.4 x10*3/mcL Normal 4.5-11.0 [facility] Comment on above: Performed By: #### A CHRISTINE #### [facility] ([facility]KNOWN) [address] [place] [address] CMPon 02-16-2024 Albumin [Mass/Vol] 4.6 g/dL Normal 3.7-5.3 [facility] Comment on above: Performed By: #### A #### [facility] ([facility]KNOWN) [address] [place] [address] Albumin/Globulin [Mass ratio] 1.7 {ratio} Normal 1.1-2.2 [facility] Comment on above: Performed By: #### A #### [facility] ([facility]KNOWN) [address] [place] [address] Alk Phos 80 IU/L Normal 34-104 [facility] Comment on above: Performed By: #### A #### [facility] ([facility]KNOWN) [address] [place] [address] ALT [Catalytic activity/Vol] 12 U/L Normal 7-52 [facility] Comment on above: Performed By: #### A #### [facility] ([facility]KNOWN) [address] [place] [address] Anion gap [Moles/Vol] 4 mmol/L Normal 4-12 [facility] Comment on above: Performed By: #### A #### [facility] ([facility]KNOWN) [address] [place] [address] AST [Catalytic activity/Vol] 17 U/L Normal 13-39 [facility] Comment on above: Performed By: #### A #### [facility] ([facility]KNOWN) [address] [place] [address] Bili Total 0.5 mg/dL Normal 0.3-1.0 [facility] Comment on above: Performed By: #### A SA #### [facility] ([facility]KNOWN) [address] [place] [address] Calcium [Mass/Vol] 9.9 mg/dL Normal 8.6-10.3 [facility] Comment on above: Performed By: #### A SA #### [facility] (UNKNOWN) [address] [place] [address] Chloride 103 IU/L Normal 98-107 [facility] Comment on above: Performed By: #### A SA #### [facility] ([facility]KNOWN) [address] [place] [address] CO2 [Moles/Vol] 31 mmol/L Normal 21-31 [facility] Comment on above: Performed By: #### A SA #### [facility] ([facility]KNOWN) [address] [place] [address] Creatinine [Mass/Vol] 0.59 mg/dL Low 0.60-1.20 [facility] Comment on above: Performed By: #### A SA #### [facility] ([facility]KNOWN) [address] [place] [address] Glucose [Mass/Vol] 90 mg/dL Normal 70-99 [facility] Comment on above: Performed By: #### A SA #### [facility] ([facility]KNOWN) [address] [place] [address] Potassium [Moles/Vol] 4.3 mmol/L Normal 3.4-4.8 [facility] Comment on above: Performed By: #### A SA #### [facility] ([facility]KNOWN) [address] [place] [address] Protein [Mass/Vol] 7.3 g/dL Normal 6.0-8.3 [facility] Comment on above: Performed By: #### A SA #### [facility] ([facility]KNOWN) [address] [place] [address] Sodium [Moles/Vol] 138 mmol/L Normal 136-145 [facility] Comment on above: Performed By: #### A SA #### [facility] ([facility]KNOWN) [address] [place] [address] Urea nitrogen [Mass/Vol] 10 mg/dL Normal 7-25 [facility] Comment on above: Performed By: #### A SA #### [facility] ([facility]KNOWN) [address] [place] [address] Urea nitrogen/Creatinine [Mass ratio] 16.9 mg/mg Normal 10.0-20.0 [facility] Comment on above: Performed By: #### A SA #### [facility] ([facility]KNOWN) [address] [place] [address] CT Abdomen Pelvis w/ IV Cont unm cancer center 02-16-2024 CT Abdomen Pelvis w/ IV [...] extend through the anus. Radiation Dose Estimate: CTDI(mGy):0.838272 / / / kVp:100.485572 / mAs:0.084217 / / / DLP(mGy-cm):0.142605 Body Part: Abdomen CTDI(mGy):4.298223 / / / kVp:80.703567 / mAs:128.966074 / / / DLP(mGy-cm):192.0000 00Body Part: Abdomen Final Dictated by: Irma Estevez MD Dictated DT/TM: 02.16.2024 3:59 pm Signed by: Irma Estevez MD Signed (Electronic Signature): 02.16.2024 4:12 pm (If Report Is Signed, Electronically Signed in Other Vendor System) Normal [facility] Comment on above: Order Comment: tatiana khan order signed 02/04/24 - [facility] [place] Diff Autoon 02-16-2024 Baso Absolute 0.1 x10*3/mcL Normal 0.0-0.2 [facility] Comment on above: Performed By: #### A SA #### [facility] ([facility]KNOWN) [address] [place] [address] Basophils/100 WBC (Bld) 1.1 % Normal 0.0-1.5 [facility] Comment on above: Performed By: #### A SA #### [facility] ([facility]KNOWN) [address] [place] [address] Eos Absolute 0.1 x10*3/mcL Normal 0.0-0.4 [facility] Comment on above: Performed By: #### A SA #### [facility] ([facility]KNOWN) [address] [place] [address] Eosinophils/100 WBC (Bld) 1.4 % Normal 0.0-5.4 [facility] Comment on above: Performed By: #### A SA #### [facility] (UNKNOWN) [address] [place] [address] Lymph Absolute 2.0 x10*3/mcL Normal 1.0-4.8 [facility] Comment on above: Performed By: #### A SA #### [facility] (UNKNOWN) [address] [place] [address] Lymphocytes/100 WBC (Bld) 26.9 % Low 27.2-40.8 [facility] Comment on above: Performed By: #### A SA #### [facility] (UNKNOWN) [address] [place] [address] [place] Absolute 0.5 x10*3/mcL Normal 0.1-1.1 [facility] Comment on above: Performed By: #### A #### [facility] (UNKNOWN) [address] [place] [address] Monocytes/100 WBC (Bld) 6.9 % Normal 3.7-11.9 [facility] Comment on above: Performed By: #### A #### [facility] (UNKNOWN) [address] [place] [address] Neutro Absolute 4.7 x10*3/mcL Normal 1.8-7.7 [facility] Comment on above: Performed By: #### A #### [facility] (UNKNOWN) [address] [place] [address] Neutro Auto 63.7 % Normal 47.2-70.8 [facility] Comment on above: Performed By: #### A #### [facility] (UNKNOWN) [address] [place] [address] POC Creatinine Von POC Crea iStat Venous 0.6 mg/dL Normal 0.6-1.3 [facility] Comment on above: Performed By: #### A CHRISTINE #### [facility] (UNKNOWN) [address] [place] [address] Surgery Office/Clinic Noteon 02-04-2024 Surgery Office/Clinic Note Chief Complaint Rectal protrusion History of Present Illness 63 year old female, referred by Dr. Amanda ([facility]), patient of Darío Sarah Patient is here with c/o protrusion from the rectum that has been an ongoing issue for many years, but worsening lately. States it is becoming more difficult to reduce. She denies constipation or straining and bleeding. Last colonoscopy 01-14-2023 in [place], diverticulosis and tubular adenoma x2. The patient [...] (01/14/2023) Medicatio (more content not included)... Normal [facility] COMPREHENSIVE METABOLIC PANE Ish 09-01-2023 Albumin [Mass/Vol] 4.5 g/dL Normal 3.2-5.3 [facility] Comment on above: Performed By: #### C TAMRA, 62548-2 #### [facility] ([id number]) [address], [address] [place] [address] ALP [Catalytic activity/Vol] 73 U/L Normal 39-130 [facility] Comment on above: Performed By: #### C TAMRA, 66285-2 #### [facility] ([id number]) [address], [address] [place] [address] ALT [Catalytic activity/Vol] 21 U/L Normal 0-31 [facility] Comment on above: Performed By: #### Huseyin BARBOZA, 78042-3 #### [facility] ([id number]) [address], [address] [place] [address] Anion gap [Moles/Vol] 8 mmol/L Normal 5-15 [facility] Comment on above: Performed By: #### Huseyin BARBOZA, 39613-8 #### [facility] ([id number]) [address], [address] [place] [address] AST [Catalytic activity/Vol] 24 U/L Normal 0-41 [facility] Comment on above: Performed By: #### Huseyin BARBOZA, 93762-9 #### [facility] ([id number]) [address], [address] [place] [address] Bilirubin [Mass/Vol] 0.3 mg/dL Normal 0.3-1.[address] [facility] Comment on above: Performed By: #### Huseyin BARBOZA, 80415-0 #### [facility] ([id number]) [address], [address] [place] [address] Calcium [Mass/Vol] 9.4 mg/dL Normal 8.5-10.5 [facility] Comment on above: Performed By: #### Huseyin BARBOZA 94654-0 #### [facility] ([id number]) [address], [address] [place] [address] Chloride [Moles/Vol] 102 mmol/L Normal 98-[address] [facility] Comment on above: Performed By: #### Huseyin BARBOZA, 52085-1 #### [facility] [facility] ([id number]) [address], [address] [place] [address] CO2 [Moles/Vol] 30 mmol/L Normal 22-32 [facility] Comment on above: Performed By: #### C TAMRA, 91351-9 #### [facility] ([id number]) [address] [place] [address] Creatinine [Mass/Vol] 0.58 mg/dL Normal 0.40-1.00 [facility] Comment on above: Result Comment: METH OD TRACEABLE TO IDMS STANDARD Performed By: #### C TAMRA, 27401-3 #### [facility] ([id number]) [address] [address] [place] [address] eGFR (CKD-EPI) NON-RACE DEPENDENT >90 Normal >59 [facility] Comment on above: Result Comment: Reported eGFR is based on the CKD-EPI 2020 equation that does not use a race coefficient. Performed By: #### C TAMRA, 58856-9 #### [facility] ([id number]) [address] [address] [place] [address] Glucose [Mass/Vol] 98 mg/dL Normal 65-99 [facility] Comment on above: Performed By: #### Huseyin BARBOZA, 49505-8 #### [facility] ([id number]) [address] [place] [address] Potassium [Moles/Vol] 4.5 mmol/L Normal 3.5-5.0 [facility] Comment on above: Performed By: #### Huseyin BARBOZA, 00469-0 #### [facility] ([id number]) [address] [place] [address] Protein [Mass/Vol] 6.9 g/dL Normal 6.0-8.0 [facility] Comment on above: Performed By: #### Huseyin BARBOZA, 80648-8 #### [facility] ([id number]) [address] [place] [address] Sodium [Moles/Vol] 140 mmol/L Normal 134-146 [facility] Comment on above: Performed By: #### C TAMRA 17046-8 #### [facility] ([id number]) [address] [place] [address] Urea nitrogen [Mass/Vol] 12 mg/dL Normal 5-27 [facility] Comment on above: Performed By: #### uHseyin TAMRA, 69186-0 #### [facility] ([id number]) [address], [address] [place] [address] Comprehensive metabolic pane ish 09-01-2023 Albumin [Mass/Vol] 4.5 g/dL 3.2 - 5.3 g/dL [facility] ALP [Catalytic activity/Vol] 73 U/L 39 - 130 U/L [facility] ALT No additional P-5'-P [Catalytic activity/Vol] 21 U/L 0 - 31 U/L [facility] Anion gap [Moles/Vol] 8 mmol/L 5 - 15 mmol/L [facility] AST [Catalytic activity/Vol] 24 U/L 0 - 41 U/L [facility] Bilirubin [Mass/Vol] 0.3 mg/dL 0.3 - 1 .2 mg/dL [facility] Calcium [Mass/Vol] 9.4 mg/dL 8.5 - 10. 5 mg/dL [facility] Chloride [Moles/Vol] 102 mmol/L 98 - 10 9 mmol/L [facility] CO2 [Moles/Vol] 30 mmol/L 22 - 32 mmol/L [facility] Creatinine [Mass/Vol] 0.58 mg/dL 0.40 - 1.00 mg/dL [facility] Comment on above: METHOD TRACEABLE TO IDOR STANDARD eGFR (CKD-EPI)non-race dependent - PINF [facility] Comment on above: Reported eGFR is based on the CKD-EPI 2020 equation that does not use a race coefficient. Glucose [Mass/Vol] 98 mg/dL 65 - 99 mg/dL [facility] Potassium [Moles/Vol] 4.5 mmol/L 3.5 - 5.0 mmol/L [facility] Protein [Mass/Vol] 6.9 g/dL 6.0 - 8.0 g/dL [facility] Sodium [Moles/Vol] 140 mmol/L 134 - 146 mmol/L [facility] Urea nitrogen [Mass/Vol] 12 mg/dL 5 - 27 mg/dL [facility] Lipid 1996 panelon 4 Cholesterol [Mass/Vol] 191 mg/dL 150 - 200 mg/dL [facility] Cholesterol in HDL [Mass/Vol] 54 mg/dL 39 - PINF mg/dL [facility] Comment on above: HDL <40 mg/dL - High Risk HDL > or = 40mg/dL- Desirable HDL >60 mg/dL - Negative Risk Cholesterol in LDL [Mass/Vol] 111 mg/dL NINF - 130 mg/dL [facility] Comment on above: LDL <100 mg/dL - Desirable LDL >160 mg/dL - High Risk Cholesterol in VLDL [Mass/Vol] 26 mg/dL 0 - 30 mg/dL [facility] Cholesterol.total/Cho lesterol in HDL [Mass ratio] 3.5 {ratio} 1.0 - 5.0 [facility] Triglyceride [Mass/Vol] 130 mg/dL 27 - 150 mg/dL [facility] Cholesterol [Mass/Vol] 191 mg/dL Normal 150-200 [facility] Comment on above: Performed By: #### C , 85979-2 #### [facility] ([id number]) [address], [address] [place] [address] Cholesterol in HDL [Mass/Vol] 54 mg/dL Normal >39 [facility] Comment on above: Result Comment: HDL <40 mg/dL - High Risk HDL > or = 40mg/dL- Desirable HDL >60 mg/dL - Negative Risk Performed By: #### Huseyin BARBOZA, 29533-1 #### [facility] ([id number]) [address], [address] [address] Cholesterol in LDL [Mass/Vol] 111 mg/dL Normal <130 [facility] Comment on above: Result Comment: LDL <100 mg/dL - Desirable LDL >160 mg/dL - High Risk Performed By: #### Huseyin BARBOZA, 56250-7 #### [facility] ([id number]) [address] [place] [address] Cholesterol in VLDL [Mass/Vol] 26 mg/dL Normal 0-30 [facility] Comment on above: Performed By: #### Huseyin BARBOZA, 74306-8 #### [facility] ([id number]) [address], [facility] [address] [place] [address] CHOLESTEROL:HDL 3.5 Normal 1.0-5.0 [facility] Comment on above: Performed By: #### Huseyin BARBOZA, 69077-4 #### [facility] ([id number]) [address], [address] [address] Triglyceride [Mass/Vol] 130 mg/dL Normal 27-150 [facility] Comment on above: Performed By: #### Huseyin BARBOZA, 65655-6 #### [facility] ([id number]) [address], [facility] [address] [place] [address] No Panel Informationon 08-31 [facility] POCT EKGOrdered By: Cami quezada on 06-15-2023 [facility] Outside Colonoscopyon 2022 Outside Colonoscopy [id number]#1.00CD:127 Normal [facility] Pathology Noteon 01-21-2023 Pathology Note [id number] #1.00CD:127 [facility] Reminderson 01-21-2023 Reminders - From: Elisa Patel LPN To: N - Clinical; Sent: 01/21/2023 10:07:40 EDT Show up: 12/15/2027 07:00:00 EDT Subject: colonoscopy recall Due Date/Time: 01/15/2028 07:00:00 EDT Reminder/Recall Patient due for surveillance colonoscopy 01/15/2028. [facility] Insurance Correspondenceon 0 12-26-2022 Insurance Correspondence [id number] 7#1.00CD:127 [facility] Consent for Procedure/Surger yon 12-17-2022 Consent for Procedure/Surgery [id number] #1.00CD:127 [facility] Facesheeton 12-17-2022 Facesheet [id number] #1.00CD:127 [facility] Ambulatory Visit Summaryon 0 12-16-2022 Ambulatory Visit Summary SEBASTIANKIMBERLY BojorquezPETRONA Kinga :1960 Visit Date:12/16/2022 Ambulatory Visit Instructions [...] Screening for malignant neoplasm of colon Normal [facility] Physician Referralon 023 Physician Referral [id number] #1.00CD:127 Normal [facility] CT LUNG CANCER SCREENINGon 0 09-29-2022 [...] by: GABRIEL ROBERTSON Date: 2022-09-29 17:03 Normal [facility] COVID + FLU Quick Testingon 05-31-2022 SARS-CoV-2 (COVID-19) RNA MILAN+probe Ql (Unsp spec) Negative [facility] Other COVID + FLU Quick Testing Negative [facility] Other XR chest 2V*on 05-31-2022 XR chest 2V* [facility] [address] [place] [address] XRay Report Signed Patient: Petrona Angeles MR#: [id number] : 1960 Acct:[id number] Age/Sex: 61 / F ADM Date: 05/31/22 Loc: XDUCLY Room: Type: [facility] Attending Dr: Janice MORELOS Copies to: [...] Keyonna Head M.D.05/31/2022 1:14 PM Dictation Location: [place] [address] Transcribed By: [facility] 05/31/22 1314 Dictated By: Keyonna Head MD 05/31/22 1313 Signed By: 05/31/22 1314 Normal [facility] XR chest 2V* [facility] [employer] Other XR chest 2V* [facility] [employer] Other XR chest 2V* [address] [facility] [employer] Other XR chest 2V* [place] [address] [employer] Other XR chest 2V* XRay Report [facility] [employer] [facility] Other XR chest 2V* Signed [facility] [employer] [facility] Other XR chest 2V* Patient: Petrona Angeles MR#: [id number] [facility] Other XR chest 2V* [id number] [facility] [employer] [facility] Other XR chest 2V* : 1960 Acct:[id number] [facility] [employer] [facility] Other XR chest 2V* Age/Sex: 61 / F ADM Date: 05/31/22 [facility] Other XR chest 2V* Loc: XDUCLY Room: Type: REG I [facility] Other XR chest 2V* Attending Dr: Janice MORELOS [facility] Other XR chest 2V* Copies to: JETHRO Robles [facility] [employer] [facility] Other XR chest 2V* Ordering Provider: JETHRO Robles [facility] Other XR chest 2V* Date of Service: 05/31/22 [facility] Other XR chest 2V* XR/XR chest 2V*: COUGH [facility] [employer] [facility] Other XR chest 2V* PA AND LATERAL CHEST: [facility] [employer] [facility] Other XR chest 2V* CLINICAL HISTORY: Chest tightness on the right and productive cough [facility] Other XR chest 2V* COMPARISON: None [facility] Other XR chest 2V* The lungs are hyperinflated. There are minor chronic changes. There is no focal parenchymal [facility] Other XR chest 2V* consolidation, effusion or pneumothorax. The cardiac, hilar and mediastinal silhouettes are within [facility] Other XR chest 2V* normal limits. There is no vascular congestion. The visualized bony thorax is intact. Endplate [facility] [employer] Other XR chest 2V* spurring is present. No rth [facility] [employer] Other XR chest 2V* XR/XR chest 2V* [place] [employer] Other XR chest 2V* IMPRESSION: [facility] [employer] [facility] Other XR chest 2V* OBSTRUCTIVE LUNG DISEASE. [facility] Other XR chest 2V* NO ACUTE CARDIOPULMONARY ABNORMALITY. [facility] Other XR chest 2V* Impression dictated by: Keyonna Head M.D.05/31/2022 1:14 PM [place] [employer] Other XR chest 2V* Dictation Location: [address] [employer] Other XR chest 2V* Transcribed By: LAUREEN 05/31/22 [facility] Other XR chest 2V* Dictated By: Keyonna Head MD 05/31/22 [facility] [employer] Other XR chest 2V* Signed By: [facility] [employer] [facility] Other XR chest 2V* 05/31/22 [facility] [employer] [place] [facility] [employer] Other COVID Quick Testingon 2021 Result Positive [place] [employer] Other XR CSPINE 2_3 VIEWSon 2021 XR [...] paraspinous abnormality is seen. OTHER: Negative. IMPRESSION: Hkoc-uz-wrnwkzaf degenerative changes most significant at C5-C6 Electronically authenticated by: LOLIS CALLAWAY Date: 2021-10-14 07:09 Normal [facility] COVID Quick Testingon 2020 Result Negative [facility] [employer] Other Vital Signs Date Time Vital Sign Value Performing Clinician Facility 01-19-2025 15:19-0400 Body height 160 cm [facility]ith [facility]long [facility] 01-19-2025 15:19-0400 Body mass index (BMI) [Ratio] 24.1 kg/m2 Rohith Furlong DO [facility] 01-19-2025 15:19-0400 Body temperature 98.01 [degF] Rohith Furlong DO [facility] 01-19-2025 15:19-0400 Body weight 61.69 kg [email or web address] 01-19-2025 15:19-0400 Diastolic blood pressure 82 mm[Hg] Rohith Furlong DO [facility] 01-19-2025 15:19-0400 Heart rate 94 /min Rohith Furlong DO [facility] 01-19-2025 15:19-0400 Respiratory rate 18 /min Rohith Furlong DO [facility] 01-19-2025 15:19-0400 SaO2% (BldA) [Mass fraction] 93 % Rohith Furlong DO [facility] 01-19-2025 15:19-0400 Systolic blood pressure 124 mm[Hg] Rohith Furlong DO [facility] 02-22-2024 11:04-0400 Body height 160 cm Rohith Furlong DO Work Phone: [facility] [employer] [facility] 02-22-2024 11:04-0400 Body mass index (BMI) [Ratio] 23.24 kg/m2 Rohith Furlong DO Work Phone: [facility] 02-22-2024 11:04-0400 Body temperature 97.81 [degF] Rohith Furlong DO Work Phone: [facility] [employer] [facility] 02-22-2024 11:04-0400 Body weight 59.51 kg Rohith Furlong DO Work Phone: [facility] [employer] [facility] 02-22-2024 11:04-0400 Diastolic blood pressure 58 mm[Hg] Rohith Furlong DO Work Phone: [facility] [employer] [facility] 02-22-2024 11:04-0400 Heart rate 79 /min Rohith Furlong DO Work Phone: [facility] [employer] [facility] 02-22-2024 11:04-0400 Respiratory rate 18 /min Rohith Furlong DO Work Phone: [facility] 02-22-2024 11:04-0400 SaO2% (BldA) [Mass fraction] 96 % Rohith Furlong DO Work Phone: [facility] 02-22-2024 11:04-0400 Systolic blood pressure 118 mm[Hg] Rohith Furlong DO Work Phone: [facility] [employer] [facility] 09-01-2023 15:20-0400 Body height 160 cm Rohith Furlong DO Work Phone: [facility] [employer] [facility] 09-01-2023 15:20-0400 Body mass index (BMI) [Ratio] 23.74 kg/m2 Rohith Furlong DO Work Phone: [facility] [employer] [facility] 09-01-2023 15:20-0400 Body temperature 98.4 [degF] Rohith Furlong DO Work Phone: [facility] 09-01-2023 15:20-0400 Body weight 60.78 kg Rohith Furlong DO Work Phone: [facility] [employer] [facility] 09-01-2023 15:20-0400 Diastolic blood pressure 72 mm[Hg] Rohith Furlong DO Work Phone: [facility] [employer] [facility] 09-01-2023 15:20-0400 Heart rate 82 /min Rohith Furlong DO Work Phone: [facility] 09-01-2023 15:20-0400 Respiratory rate 18 /min Rohith Furlong DO Work Phone: [facility] [employer] [facility] 09-01-2023 15:20-0400 SaO2% (BldA) [Mass fraction] 94 % Rohith Furlong DO Work Phone: [facility] [employer] [facility] 09-01-2023 15:20-0400 Systolic blood pressure 110 mm[Hg] Rohith Furlong DO Work Phone: [facility] 07-31-2023 10:55-0500 Body height 160 cm Rohith Furlong DO Work Phone: [facility] [employer] [facility] 07-31-2023 10:55-0500 Body mass index (BMI) [Ratio] 23.38 kg/m2 Rohith Furlong DO Work Phone: [facility] [employer] [facility] 07-31-2023 10:55-0500 Body temperature 97.9 [degF] Rohith Furlong DO Work Phone: [facility] [employer] [facility] 07-31-2023 10:55-0500 Body weight 59.88 kg Rohith Furlong DO Work Phone: [facility] 07-31-2023 10:55-0500 Diastolic blood pressure 70 mm[Hg] Rohith Furlong DO Work Phone: [facility] [employer] [facility] 07-31-2023 10:55-0500 Heart rate 100 /min Rohith Furlong DO Work Phone: [facility] 07-31-2023 10:55-0500 SaO2% (BldA) [Mass fraction] 95 % Rohith Archer DO Work Phone: [facility] 07-31-2023 10:55-0500 Systolic blood pressure 120 mm[Hg] Rohith Archer DO Work Phone: [facility] 06-15-2023 15:31-0500 Body height 160 cm Anais Muñoz [employer] Work Phone: [facility] 06-15-2023 15:31-0500 Body mass index (BMI) [Ratio] 24.13 kg/m2 Anais Muñoz [employer] Work Phone: [facility] 06-15-2023 15:31-0500 Body temperature 97.81 [degF] Anais Muñoz [employer] Work Phone: [facility] 06-15-2023 15:31-0500 Body weight 61.78 kg Anais Muñoz [employer] [facility] 06-15-2023 15:31-0500 Diastolic blood pressure 60 mm[Hg] Anais Muñoz [employer] Work Phone: [facility] 06-15-2023 15:31-0500 Heart rate 81 /min Anais Muñoz APRN[employer] Work Phone: [facility] 06-15-2023 15:31-0500 SaO2% (BldA) [Mass fraction] 94 % Anais Muñoz [employer] [facility] 06-15-2023 15:31-0500 Systolic blood pressure 110 mm[Hg] Anais Muñoz [employer] [facility] 05-31-2022 13:30-0500 Body height 160.02 cm Janice Rahman Other [facility] Other 05-31-2022 13:30-0500 Body mass index (BMI) [Ratio] 26.04 kg/m2 Janice Lacey Other [facility] [employer] [facility] Other 05-31-2022 13:30-0500 Body temperature 97.8 [degF] Janice Lacey Other [facility] [employer] [facility] Other 05-31-2022 13:30-0500 Body weight 66.68 kg Janice Lacey Other [facility] [employer] [facility] Other 05-31-2022 13:30-0500 Diastolic blood pressure 74 mm[Hg] Janice Lacey Other [facility] [facility] Other 05-31-2022 13:30-0500 Respiratory rate 18 /min Janice Lacey Other [facility] [employer] [facility] Other 05-31-2022 13:30-0500 SaO2% (BldA) [Mass fraction] 98 % Janice Lacey Other [facility] [employer] [facility] Other 05-31-2022 13:30-0500 Systolic blood pressure 118 mm[Hg] Janice Lacey Other [facility] [employer] [facility] Other 11-30-2021 15:35-0400 Body height 160.02 cm Janice Lacey Other [facility] [employer] [facility] Other 11-30-2021 15:35-0400 Body mass index (BMI) [Ratio] 25.68 kg/m2 Janice Lacey Other [facility] [employer] [facility] Other 11-30-2021 15:35-0400 Body temperature 97.7 [degF] Janice Lacey Other [facility] [employer] [facility] Other 11-30-2021 15:35-0400 Body weight 65.77 kg Janice Rahman Other [facility] [employer] [facility] Other 11-30-2021 15:35-0400 Respiratory rate 18 /min Janice Rahman Other [facility] [employer] [facility] Other 11-30-2021 15:35-0400 SaO2% (BldA) [Mass fraction] 96 % Janice Rahman Other [facility] [employer] [facility] Other Encounters Encounter Date Encounter Type Care Provider Facility Start: 01-31-2025 End: 01-31-2025 Orders Only Rohith Archer DO Work Phone: [facility] Comment on above: Chronic bilateral lo w back pain without sciatica (Primary Dx); Acute pain of left shoulder; Lumbar spondylosis Start: 01-30-2025 End: 01-30-2025 Orders Only Rohith Archer DO Work Phone: [facility] Start: 01-19-2025 End: 01-19-2025 Patient encounter status Rohith Archer DO Work Phone: [facility] [employer] [facility] Start: 01-19-2025 End: 01-19-2025 Periodic preventive med est patient 40-64yrs Rohith Archer DO Work Phone: [facility] Comment on above: Well adult exam (Whitney swanson Dx); Chronic obstructive pulmonary disease, unspecified COPD type (CMS-HCC); Pain in both lower extremities; Chronic bilateral low back pain without sciatica; Acute pain of left shoulder; Ex-cigarette smoker; Need for shingles vaccine Start: 01-19-2025 End: 01-19-2025 ambulatory ROHITHKRISTEN ARCHER [facility] Start: 01-19-2025 Encounter for genera l adult medical examination without abnormal findings [place] [facility] Start: 04-14-2024 End: 04-14-2024 ambulatory Eveline Ozuna MD Facility[facility] Start: 03-24-2024 End: 03-24-2024 ambulatory Eveline Ozuna MD Facility:[facility]urg [facility] - 3 Start: 03-10-2024 End: 03-10-2024 ambulatory Eveline Ozuna MD Facility:[facility] - [facility] Start: 02-26-2024 End: 02-28-2024 Evaluation and management of inpatient Rohith Archer DO Facility:[facility] Start: 02-24-2024 End: 02-24-2024 Orders Only [facility] Comment on above: Lung nodule, solitar y (Primary Dx) Start: 02-22-2024 End: 02-22-2024 Office outpatient visit 15 minutes [facility]ith Archer [facility] Comment on above: Pre-op evaluation (P rimary Dx); Chronic obstructive pulmonary disease, unspecified COPD type ([facility]-HCC); Rectal prolapse Start: 02-22-2024 End: 02-22-2024 Preprocedural examination done Rohith Archer DO Work Phone: [facility] Work Phone: Start: 02-22-2024 End: 02-22-2024 ambulatory [place] [facility] Start: 02-18-2024 End: 02-18-2024 ambulatory Rohith Archer DO Facility:[facility] Start: 02-16-2024 End: 02-16-2024 ambulatory Rhoith Archer DO Facility:[facility] Start: 02-09-2024 End: 02-09-2024 ambulatory Eveline Ozuna MD Facility:[facility] - [facility] Start: 02-04-2024 End: 02-04-2024 ambulatory Rohith Archer DO Facility:[facility] Start: 09-01-2023 End: 09-02-2023 ambulatory [place] [facility] Start: 09-01-2023 Encounter for genera l adult medical examination without abnormal findings [facility] Start: 09-01-2023 End: 09-01-2023 Patient encounter status Rohith Lakerox [place] Work Phone: [facility] [employer] [facility] Work Phone: Start: 09-01-2023 End: 09-01-2023 Periodic preventive med est patient 40-64yrs Rohith Lakerox [place] Work Phone: [facility] Comment on above: Well adult health ch bobby (Primary Dx); Thoracic region somatic dysfunction; Ex-cigarette smoker; Encounter for screening mammogram for malignant neoplasm of breast; Myalgia Start: 08-07-2023 Orders Only Anais Harvey Toni [employer] Work Phone: [facility] Comment on above: Rib pain on right si de (Primary Dx) Start: 07-31-2023 End: 07-31-2023 Office outpatient visit 15 minutes Rohith Lakerox [place] Work Phone: [facility] Comment on above: Acute pain of left s houlder (Primary Dx) Start: 07-17-2023 End: 07-18-2023 ambulatory [facility] Start: 07-01-2023 Orders Only Anais Harvey Toni [employer] Work Phone: [facility] Comment on above: Other chest pain (Pr imary Dx); Ventricular premature depolarization Start: 06-29-2023 End: 06-30-2023 ambulatory [facility] Start: 06-17-2023 Orders Only Anais Harvey Toni [employer] Work Phone: [facility] Comment on above: Other chest pain (Pr imary Dx) Acute chest wall erwin n (Primary Dx) Start: 06-15-2023 End: 06-15-2023 Office outpatient visit 15 minutes Anais Muñoz [employer] Work Phone: [facility] Comment on above: Acute chest wall erwin n (Primary Dx) Start: 05-30-2023 Refill Rohith Kim ng DO Work Phone: [facility] Comment on above: Mixed hyperlipidemia Start: 01-14-2023 End: 01-15-2023 ambulatory Rohit YEH Facility:CD:[id number] Start: 12-16-2022 End: 12-17-2022 ambulatory ROHITH ARCHER Facility:[facility] Start: 11-27-2022 ambulatory ROHITH ARCHER Facility :[facility] Start: 09-29-2022 End: 09-30-[address] ROHITH ARCHER Facility: Start: 05-31-2022 End: 05-31-2022 ambulatory Janice Rahman Facility:[facility] Start: 05-31-2022 Office outpatient vi sit 25 minutes Janice Rahman [facility] Start: 05-31-2022 End: 05-31-2022 ambulatory DO Rohith Jayabhanung Work Phone: [facility] Work Phone: Start: 05-31-2022 End: 05-31-2022 Patient encounter procedure DO Rohith Furbhanung Work Phone: [facility] Work Phone: Start: 11-30-2021 End: 11-30-2021 ambulatory Janice Rahman Other [facility] Other Start: 11-30-2021 Office outpatient vi sit 15 minutes Janice Rahman [facility] Start: 10-12-2021 End: 10-13-[address] ROHITH ARCHER Facility: Start: 04-17-2021 End: 04-17-2021 ambulatory Janice Rahman Other [place] [employer] Other Start: 04-17-2021 Office outpatient vi sit 5 minutes Janice Rahman [facility] Procedures Date Procedure Procedure Detail Performing Clinician Start: 01-19-2025 Comprehensive metabo lic panel Rohith Martin Furlong DO Work Phone: Start: 01-19-2025 Lipid panel Rohith Falcon urlong DO Work Phone: Start: 01-19-2025 [...] w/le ast 12 lds w/i&r Anais Muñoz [employer] Work Phone: Start: 06-15-2023 Adult depression scr eening assessment Anais Muñoz [employer] Work Phone: Start: 01-14-2023 Colonoscopy Rohith Fur long DO Work Phone: Start: 12-08-2022 Adult depression scr eening assessment Rohith Furlong DO Work Phone: Start: 05-31-2022 Plain chest X-ray DO De nnis Furlong Work Phone: Plan of Treatment Date Care Activity Detail Author Start: 01-14-2033 Screening for malign ant neoplasm of colon Colonoscopy [facility] Start: 03-22-2029 DTaP,Tdap and Td Vaccines (2 - Td or Tdap) DTaP,Tdap and Td Vaccines (2 - Td or Tdap) [facility] Start: 01-19-2026 Adult BMI Screening Adult BMI Screen ing [facility] Start: 01-19-2026 Depression Screening Depression Scre ening [facility] Start: 01-19-2026 Tobacco Screening Tobacco Screening [facility] Start: 12-15-2025 Screening for malign ant neoplasm of breast Mammogram [facility] Start: 03-16-2025 Administration of varicella zoster vaccine Zoster (Shingles) Vaccine (2 of 2) [facility] Start: 02-21-2025 Adult BMI Screening Adult BMI Screen ing [facility] Start: 02-21-2025 Depression Screening Depression Scre ening [facility] Start: 02-21-2025 Tobacco Screening Tobacco Screening [facility] Start: 02-03-2025 End: 02-03-2025 Patient encounter procedure 02/03/2025 3:30 PM EDT Appointment [facility] [address] [place] [address] [facility] Start: 02-03-2025 End: 02-03-2025 Patient encounter procedure 02/03/2025 1:30 PM EDT Appointment [facility] [address] [place] [address] [facility] Start: 01-23-2025 COVID-19 Vaccine ( season) COVID-19 Vaccine ( season) [facility] Start: 01-23-2025 Influenza vaccination Influenza Vacc ine [facility] Start: 01-19-2025 End: 01-19-2026 CT Chest for screening WO contrast CT low dose lung screening (Annual) Imaging Routine Ex-cigarette smoker Expected: 01/19/2025, Expires: 01/19/2026 [facility] Work Phone: Comment on above: Expected: 01/19/2025 , Expires: 01/19/2026 Start: 01-19-2025 End: 01-19-2026 US.doppler Extremity arteries - bilateral for physiologic artery study limited Vas art doppler lwr limited single Vascular Ultrasound Routine Pain in both lower extremities Expected: 01/19/2025, Expires: 01/19/2026 [facility] Comment on above: Expected: 01/19/2025 , Expires: 01/19/2026 Start: 01-19-2025 End: 01-19-2026 US.doppler Lower extremity artery - bilateral Vas art duplex lwr bilateral Vascular Ultrasound Routine Pain in both lower extremities Expected: 01/19/2025, Expires: 01/19/2026 [facility] Comment on above: Expected: 01/19/2025 , Expires: 01/19/2026 Start: 01-19-2025 End: 01-19-2026 XR Lumbar spine 2 or 3 Views X-ray spine lumbar 2 or 3 views Imaging Routine Chronic bilateral low back pain without sciatica Expected: 01/19/2025, Expires: 01/19/2026 [facility] Comment on above: Expected: 01/19/2025 , Expires: 01/19/2026 Start: 01-19-2025 End: 01-19-2026 XR Shoulder - left 2 Views X-ray shoulder left minimum 2 views Imaging Routine Acute pain of left shoulder Expected: 01/19/2025, Expires: 01/19/2026 [facility] Comment on above: Expected: 01/19/2025 , Expires: 01/19/2026 Start: 10-05-2024 Screening for malign ant neoplasm of breast Mammogram [facility] Start: 08-31-2024 Adult BMI Screening Adult BMI Screen ing [facility] Start: 08-31-2024 [facility] Start: 08-31-2024 Tobacco Screening Tobacco Screening [facility] Start: 07-30-2024 Adult BMI Screening Adult BMI Screen ing [facility] Start: 07-30-2024 Depression Screening Depression Scre ening [facility] Start: 07-30-2024 Tobacco Screening Tobacco Screening [facility] Start: 06-29-2024 Adult BMI Screening Adult BMI Screen ing [facility] Start: 06-15-2024 Adult BMI Screening Adult BMI Screen ing [facility] Start: 06-15-2024 Depression Screening Depression Scre ening [facility] Start: 06-15-2024 Tobacco Screening Tobacco Screening [facility] Start: 05-25-2024 Administration of varicella zoster vaccine Zoster (Shingles) Vaccine (1 of 2) [facility] Comment on above: Postponed from 11/16 (Patient Refused) Start: 05-25-2024 COVID-19 Vaccine ( season) COVID-19 Vaccine ( season) [facility] Comment on above: Postponed from 01/23 (Patient Refused) Start: 02-24-2024 End: 02-23-2025 CT Chest limited W contrast IV CT chest with contrast Imaging Routine Lung nodule, solitary Expected: 02/24/2024, Expires: 02/23/2025 [facility] Work Phone: Comment on above: Expected: 02/24/2024 , Expires: 02/23/2025 Start: 01-24-2024 COVID-19 Vaccine ( season) COVID-19 Vaccine ( season) [facility] Start: 01-24-2024 COVID-19 Vaccine ( season) COVID-19 Vaccine ( season) [facility] Start: 01-24-2024 Influenza vaccination Influenza Vacc ine [facility] Start: 12-09-2023 Adult BMI Screening Adult BMI Screen ing [facility] Start: 12-09-2023 Depression Screening Depression Scre ening [facility] Start: 12-09-2023 Tobacco Screening Tobacco Screening [facility] Start: 09-01-2023 End: 09-01-2023 Patient encounter procedure 09/01/2023 3:30 PM EDT Office Visit [facility] [address] [place] [address] Rohith Archer, DO [address], [place] [address] [facility] Start: 09-01-2023 End: 08-31-2024 CT Chest for screening WO contrast CT low dose lung screening (Annual) Imaging Routine Ex-cigarette smoker Expected: 09/01/2023, Expires: 08/31/2024 [employer] Work Phone: Comment on above: Expected: 09/01/2023 , Expires: 08/31/2024 Start: 09-01-2023 End: 08-31-2024 DBT Breast - bilateral screening Mammography screening bilateral with CAD Imaging Routine Encounter for screening mammogram for malignant neoplasm of breast Expected: 09/01/2023, Expires: 08/31/2024 [facility] Comment on above: Expected: 09/01/2023 , Expires: 08/31/2024 Start: 07-31-2023 End: 07-30-2024 XR Shoulder - left 2 Views X-ray shoulder left minimum 2 views Imaging Routine Acute pain of left shoulder Expected: 07/31/2023, Expires: 07/30/2024 [facility] [facility] Work Phone: Comment on above: Expected: 07/31/2023 , Expires: 07/30/2024 Start: 07-01-2023 End: 07-01-2024 Echo stress treadmill W/O contrast Echo stress treadmill W/O contrast Cardiac Services Routine Other chest pain Ventricular premature depolarization Expected: 07/01/2023, Expires: 07/01/2024 [facility] [facility] Work Phone: Comment on above: Expected: 07/01/2023 , Expires: 07/01/2024 Start: 06-17-2023 End: 06-17-2024 Exercise stress test study Stress test (exercise only) [facility] Routine Other chest pain Expected: 06/17/2023, Expires: 06/17/2024 [facility] Work Phone: Comment on above: Expected: 06/17/2023 , Expires: 06/17/2024 Start: 06-15-2023 End: 06-15-2024 XR Ribs - left Views and Chest PA X-ray ribs left 3 views with pa chest Imaging Routine Acute chest wall pain Expected: 06/15/2023, Expires: 06/15/2024 [facility] Work Phone: Comment on above: Expected: 06/15/2023 , Expires: 06/15/2024 Start: 01-23-2023 COVID-19 Vaccine () COVID-19 Vaccine ( season) [facility] Start: 01-23-2023 Influenza vaccination Influenza Vacc ine [facility] Start: 2010 Administration of varicella zoster vaccine Zoster (Shingles) Vaccine (1 of 2) [facility] Start: 2000 Screening for malign ant neoplasm of breast Mammogram [facility] Start: 1981 Screening for malign ant neoplasm of cervix Pap Smear [facility] End: 02-23-2025 Creatinine includes GFR, serum Creatinine includes GFR, serum Lab Routine Lung nodule, solitary 1 Occurrences starting 02/24/2024 until 02/23/2025 [facility] Comment on above: 1 Occurrences starti ng 02/24/2024 until 02/23/2025 Immunizations Immunization Date Immunization Notes Care Provider Greg marquez 01-19-2025 zoster vaccine recombinant Rohith Archer DO Work Phone: [facility] 01-19-2025 Immunization, In Clinic,; Translations: [Drug or medicament (substance)] Rohithkristen Lakebhanung DO Work Phone: [facility] 01-19-2025 zoster vaccine, unspecified formulation Rohithkristen Kimng DO Work Phone: [facility] 03-22-2019 Influenza, injectabl e, Madin Selina Canine Kidney, quadrivalent with preservative Rohithkristen Kimng DO Work Phone: [facility] 03-22-2019 tetanus toxoid, redu jenn diphtheria toxoid, and acellular pertussis vaccine, adsorbed Rohithkristen Archer DO Work Phone: [facility] 03-22-2019 influenza virus vaccine, unspecified formulation Rohith Archer DO Work Phone: [facility] Payers Date Payer Category Payer Self-pay [id number] 2016 Commercial Managed C are - POS [employer] [id number] 2016 Private Health Insurance 1960 Unknown [id number] 9.2.593 1960 Unknown [id number] 2.16840.1.532193.3.57 9.2.593 1960 Unknown [id number] 2.16840.1.251083.3.57 9.2.727 1960 Unknown [id number] 2.16840.1.820729.3.57 9.2.727 1960 Unknown [id number] 2.16.840.1.685050.3.57 9.2.1286 1960 Unknown [id number] 2.16.840.1.949107.3.57 9.2.1286 1960 Unknown [id number] 2.16.840.1.812862.3.57 9.2.1286 1960 Unknown [id number] 2.16840.1.301383.3.57 9.2.196 1961 Unknown [id number] 2.16.840.1.297796.3.57 9.2.196 1960 Unknown [id number] 2.16.840.1.069678.3.57 9.2.196 1960 Unknown [id number] 2.16.840.1.553816.3.57 9.2.196 1960 Unknown [id number] 2.16.840.1.110911.3.57 9.2.196 1960 Unknown [id number] 2.16.840.1.282070.3.57 9.2.196 1960 Unknown [id number] 2.16.840.1.855903.3.57 9.2.196 1960 Unknown [id number] 2.16.840.1.256647.3.57 9.2.196 1960 Unknown [id number] 2.16.840.1.766740.3.57 9.2.196 1960 Unknown [id number] 2.16.840.1.109507.3.57 9.2.196 1960 Unknown [id number] 2.16.840.1.170958.3.57 9.2.196 1960 Unknown [id number] 2.16.840.1.090766.3.57 9.2.1286 1960 Unknown [id number] 2.16.840.1.987069.3.57 9.2.1286 1959 Private Health Insurance [id number] Private Health Insurance [id number] [id number] Unknown [id number] [id number] 9.2.531 Social History Date Type Detail Facility Unknown if ever smoked [facility] Other Start: 08-25-2022 End: 09-01-2023 Sex Assigned At [facility] Other Start: 1960 Sex Assigned At Female [facility] Start: 08-25-2022 End: 02-22-2024 Tobacco smoking status NHIS Ex-smoker [facility] Start: 11-17-1973 End: 11-28-2020 History of tobacco use Current smoker [facility] Start: 11-17-1973 End: 11-28-2020 History of tobacco use Cigarette Smoker [facility] Start: 08-25-2022 End: 09-01-2023 Cigarettes smoked current (pack per day) - Reported 1 [facility] Start: 08-25-2022 End: 02-22-2024 Tobacco use and exposure Smokeless tobacco non-user [facility] Start: 01-22-2023 End: 01-19-2025 Alcohol intake Lifetime non-drinker (finding) [facility] Do you belong to any clubs or organizations such as jehovah's witness groups, unions, [employer] or athletic groups, or school groups? No [facility] Are you now , , , , never or living with a partner? Never [facility] How often to you hav e a drink containing alcohol? Never [facility] How many standard dr inks containing alcohol do you have on a typical day? Patient does not drink [facility] Do you feel stress - tense, restless, nervous, or anxious, or unable to sleep at night because your mind is troubled all the time - these days [OSQ] Only a little [facility] Start: 1960 Sex Assigned At Not on file [facility] [employer] Start: 12-26-2014 [facility] (finding[facility] 04-17-2021 to 01-19-2025 Rohith Archer, DO - 01/19/2025 3:15 PM EDRaúl Archer, DO - 02/22/2024 11:00 AM Elenita Archer, DO - 09/01/2023 3:30 PM Sejal Muñoz, [employer] - 08/07/2023 12:21 PM EDT Note Date & Type Note Facility 01-19-2025 History of Present illness Narrative Subjective Patient ID: Petrona Angeles is a 64 y.o. female. Petrona is [...] Chronic obstructive pulmonary disease, unspecified COPD type ([facility]) She has known COPD. She had not [...] check electrolytes. Continue with pickle juice an [id number] supplements for leg cramps. Ensure adequate hydration. Chronic bilateral low back pain without sciatica - X-ray spine lumbar 2 or 3 views; Future She is having chronic low back pain without any imaging thumb going to check an x-ray of her lumbar spine. Consider pain management, physical therapy. Can try [id number] analgesics Acute pain of left shoulder - X-ray shoulder left minimum 2 views; Future Symptoms seem to be consistent with impingement syndrome possibly rotator cuff injury. Try shoulder exercises. Consider cortisone injections, physical therapy. Check x-ray of left shoulder We will recheck in 1 year but she can come back sooner for further management of her shoulder and back pain. Bruno Serrato, MS3 [facility] documented in this encounter [facility] 02-29-2024 Note Subjective Patient feels well had [...] Auto 7.4 % (Low) 02/27/2024 04:54 EDT [place] Auto 9.5 % 02/28/2024 04:54 EDT [place] Auto 7.8 % 02/27/2024 04:54 EDT Eos Auto 0.8 % 02/28/2024 04:54 EDT Eos Auto 0.0 % 02/27/2024 04:54 EDT Basophil Auto 0.8 % 02/28/2024 04:54 EDT Basophil Auto 0.3 % 02/27/2024 04:54 EDT Neutro Absolute 5.3 x10 Neutro Absolute 9.9 x10 Lymph Absolute 2.2 x10 Lymph Absolute 0.9 x10 [place] Absolute 0.8 x10 [place] Absolute 0.9 x10 Eos Absolute 0.1 x10 [...] Senait RODRÍGUEZ, Iván Kimble 03/02/24 10:56 EDT [facility] 02-26-2024 Note Clinical Information Procedure: Sigmoid resection [...] colon, removed for repair of rectal prolapse. [id number] Markie Garcia MD PhD (Electronically signed by) Verified: 03/02/24 14:20 [facility] Comment on above: Performed By: #### S HI #### [facility] (DEFAULT) [address] [place] [address] 02-22-2024 History of Present illness Narrative Subjective Patient ID: Petrona Angeles is a 63 y.o. female. She is [...] chest pain like when she goes to [facility] the [employer] She had pre-surgical testing last week. Pre-op [...] Head: Normocephalic. Nose: Nose normal. Mouth/Throat: Lips: [place]. Mouth: Mucous membranes are moist. Dentition: Has [...] for treatment. documented in this encounter [facility] 09-01-2023 History of Present illness Narrative [...] ear normal. Nose: Nose normal. Mouth/Throat: Lips: [place]. Mouth: Mucous membranes are moist. Pharynx: Oropharynx [...] before bedtime. documented in this encounter [facility] 08-07-2023 History of Present illness Narrative [...] 08/07/23 1226 documented in this encounter [facility] 07-31-2023 History of Present illness Narrative [...] Negative empty can test. Equivocal impingement sign gsjxt-Ufwkiyf-Rldnqka and Neer's test. Negative Adson's test. Neurological: [...] Shoulder exercises given. documented in this encounter [facility] 06-15-2023 History of Present illness Narrative Subjective [...] pain except with movement ZI Casey 06/15/23 [id number] documented in this encounter [facility] 12-16-2022 Note Chief Complaint consultation for screening [...] Recorded SARS-CoV-2 (COVID-19) mRNA-1273 vaccine 09/20/2020 Recorded [facility] Comment on above: Result Comment: Elec tronically [...] May, Right-sided chest pain (ICD-10 - R07.9) [facility] 07-09-2022 Evaluation note* Encounter Date Diagnosis [...] Patient care instructions given in writing by [facility] document. [facility] [employer] Other 11-24-2021 Evaluation note* Encounter Date Diagnosis [...] Patient care instructions given in writting by [facility] document. [facility] Other [employer] noteNo assessment information available [facility] Work Phone: evaluation note* Diagnosis Mixed hyperlipidemia documented in this encounter [facility]* Diagnosis Acute chest wall pain- Primary documented in this encounter [facility] [employer] [employer] System[facility] note* Diagnosis Other chest pain- Primary documented in this encounter [facility] SystemEvaluation note* Diagnosis Acute chest wall pain- Primary documented in this encounter [facility] [employer] System[facility] note* Diagnosis Other chest pain- Primary Ventricular premature depolarization Other premature beats [facility] Diagnosis Acute pain of left shoulder- Primary [facility] Diagnosis Rib pain on right side- Primary [facility]* Diagnosis Well adult health check- Primary Unspecified general medical examination Thoracic region somatic dysfunction Nonallopathic lesion of thoracic region, not elsewhere classified Ex-cigarette smoker Personal history of tobacco use, presenting hazards to health Encounter for screening mammogram for malignant neoplasm of breast Myalgia Unspecified myalgia and myositis [facility]* Diagnosis Pre-op evaluation- Primary Chronic obstructive pulmonary disease, unspecified COPD type ([facility]) Rectal prolapse [facility] Diagnosis Lung nodule, solitary- Primary [facility]* Diagnosis Well adult exam- [...] inoculation against varicella [facility]* Diagnosis Chronic bilateral low back pain without sciatica- Primary Acute pain of left shoulder Lumbar spondylosis Lumbosacral spondylosis without myelopathy documented in this encounter [facility] general Narrative - Reported* Type Description Date Surgical History tonsillectomy Surgical History cholecystectomy Surgical History tubal ligation Surgical History cyst removal from neck Hospitalization History see above [facility] Other InstructionsNot on filedocumented in this encounter [facility] SystemInstructionsNot on filedocumented in this encounter [facility] SystemInstructionsNot on filedocumented in this encounter [facility] SystemInstructionsNot on filedocumented in this encounter [facility] SystemInstructions* Attachments The following attachments cannot be sent through Care Everywhere. * Rotator Cuff Tendinitis Stretching Exercises (Moroccan) * Shoulder Bursitis Exercises (Moroccan) [facility] SystemInstructionsNot on file [facility] SystemInstructionsNot on file documented [facility] SystemInstructionsNot on file documented [facility] SystemInstructionsNot on file [facility] SystemInstructionsNot on file [facility] Advance Directives Advance Directive Response Recorded Date/ Time Advance Directives No January 6:06pm Summary Purpose Family History No Family History Records FoundNo Family History Records FoundNo Family History Records FoundNo Family History Records FoundNo Family History Records FoundNo Family History Records FoundNo Family History Records Found Reason for Referral Specialty Diagnoses / Procedures Referred By Julianna mcleod Referred To Contact Diagnoses Lung nodule, solitary Procedures CT chest with contrast Rohith Archer DO [address] [facility], [place] [address] Referral ID Status Reason Start Date Expiration Date V isits Requested Visits Authorized [id number] Pending Review 02/24/2024 02/23/2025 1 1 Specialty Diagnoses / Procedures Referred By Contac t Referred To Contact Diagnoses Ex-cigarette smoker Procedures CT low dose lung screening (Annual) Rohith Archer DO [address], [place] [address] Referral ID Status Reason Start Date Expiration Date V isits Requested Visits Authorized [id number] Pending Review 09/01/2023 08/31/2024 1 1 Specialty Diagnoses / Procedures Referred By Contac t Referred To Contact Diagnoses Other chest pain Ventricular premature depolarization Procedures Echo stress treadmill W/O contrast ToniAnasiJany, [employer] [address] [id number] Referral ID Status Reason Start Date Expiration Date V isits Requested Visits Authorized [id number] Pending Review 07/01/2023 06/30/2024 5 5 Specialty Diagnoses / Procedures Referred By Contac t Referred To Contact Diagnoses Other chest pain Procedures Stress test (exercise only) Toni Jany, [employer] [address] [place] [address] Referral ID Status Reason Start Date Expiration Date V isits Requested Visits Authorized [id number] Pending Review 06/17/2023 06/16/2024 5 5 Additional [...] Rohith Archer DO Primary Care Provider Active Account Associate Relationship Specialty Start Date End Date Rohith Archer DO [address] [place] [address] PCP - General Family Medicine 06/02/22 Account Associate Relationship Specialty Start Date End Date Rohith Archer DO [address] [place] [address] PCP - General Family Medicine 06/02/22 Account Associate Relationship Specialty Start Date End Date Rohith Archer DO [address] [place] [address] PCP - General Family Medicine 06/02/22 Account Associate Relationship Specialty Start Date End Date Rohith Archer DO [address] [place] [address] PCP - General Family Medicine 06/02/22 Account Associate Relationship Specialty Start Date End Date Rohith Archer DO [address] [place] [address] PCP - General Family Medicine 06/02/22 Account Associate Relationship Specialty Start Date End Date Rohith Archer DO [address] [place] [address] PCP - General Family Medicine 06/02/22 Account Associate Relationship Specialty Start Date End Date Rohith Archer DO [address] [place] [address] PCP - General Family Medicine 06/02/22 Account Associate Relationship Specialty Start Date End Date Rohith Archer DO [address], [address] [place] [address] PCP - General Family Medicine 06/02/22 Account Associate Relationship Specialty Start Date End Date Rohith Archer DO [address], [address] [place] [address] PCP - General Family Medicine 06/02/22 Account Associate Relationship Specialty Start Date End Date Rohith Archer DO [address], [address] [place] [address] PCP - General Family Medicine 06/02/22 Account Associate Relationship Specialty Start Date End Date Rohith Archer DO [address], [address] [place] [address] PCP - General Family Medicine 06/02/22 Account Associate Relationship Specialty Start Date End Date Rohith Archer DO [address], [address] [place] [address] PCP - General Family Medicine 06/02/22 Account Associate Relationship Specialty Start Date End Date Rohith Archer DO [address], [address] [place] [address] PCP - General Family Medicine 06/02/22 Goals (unrecognized section and content) Goals may be documented in a n alternate section INFORMATION SOURCE (unrecogn ized section and content) DATE CREATED AUTHOR 06/18/2022 [facility] DATE CREATED AUTHOR AUTHOR'S ORGANIZ ATION 10/03/2022 [facility] DATE CREATED AUTHOR AUTHOR'S ORGANIZ ATION 01/22/2023 [facility] DATE CREATED AUTHOR AUTHOR'S ORGANIZ ATION 07/24/2023 [facility] DATE CREATED AUTHOR AUTHOR'S ORGANIZ ATION 09/03/2023 [facility] DATE CREATED AUTHOR AUTHOR'S ORGANIZ ATION 04/18/2024 [facility] DATE CREATED AUTHOR AUTHOR'S ORGANIZ ATION 01/21/2025 [facility] FOR RECORDS PERTAINING TO PATIENTS WHO [...] BE BASED ON THE PRIMARY CLINICAL RECORDS. [facility] [employer] [facility] provides no warranty or guarantee of the accuracy or completeness of information in this document.
== END 2025-02-01 14:55 | disposition home or self-care (01) ==
PROVIDERS: PCP Family Medicine; Visit Provider Nurse Practitioner
DX: M19.012 Primary osteoarthritis, left shoulder (principal); M47.816 Spondylosis without myelopathy or radiculopathy, lumbar region; M48.062 Spinal stenosis, lumbar region with neurogenic claudication; M79.18 Myalgia, other site
CPT/HCPCS: G0463

== ENCOUNTER 2025-02-27 14:42 | Outpatient (OUT) | payer OTHER, SELFPAY ==
--- OUTSIDE RECORDS SUMMARY | 2025-02-27 14:57 | XMS_ITS | CCD ---
Author Organization [facility] Inform ion [facility] Care Team Providers Care Clay Shop Supervisor Name Role Phone Janice Rahman Unavailable DO Rohith Archer Primary Care Provider JETHRO Rahman Attending Provider [phone] Janice Rahman Attending Unavailable Janice Rahman Admitting Unavailable Rohith Archer Primary Care Unavailable FURLONG, DR ROHITH Martin Admitting Unavailable FURLONG, DR ROHITH Martin Attending Unavailable FURLONG, DR ROHITH Martin Consulting Unavailable FURLONG, DR ROHITH Martin Primary Care Unavailable CAIRO, DR LOLIS Haider Consulting Unavailable FURLONG, DR ROHITH Martin Primary Care Unavailable FURLONG, DR ROHITH Martin Admitting Unavailable FURLONG, DR ROHITH Martin Attending Unavailable FURLONG, DR ROHITH Martin Consulting Unavailable ZIEBER, DR GABRIEL oTro Consulting Unavailable ROHITH ARCHER Referring Unavailable NILLRohit [...] Eveline I Attending Unavailable Furlong Rohith K[facility] Care Tramaine Ozuna MD, Eveline I Admitting Unavailable Sulma RODRÍGUEZ, J I Attending [facility] Rohith Leandro [facility] Tramaine Ozuna MD, J I Attending [facility] Tramaine Ozuna MD, J I Attending Unavailable Sulma RODRÍGUEZ, J I Attending [facility] Tramaine Ozuna MD, J I Attending [facility] Tramaine Ozuna MD, J I Attending [facility] Tramaine nava [facility] Tramaine Ozuna MD, J I Attending [facility] DO Rohith Martin Primary Care Provider [place] Rohith KAPOOR Primary Care Provider GIANNI ROHITH Mario Attending [facility] ROHITH ARCHER Referring [facility] Referring [facility] Unavailable Allergies Allergy Classification Reported Allergen(s) Allergy Type Date of Onset Reaction(s) Facility (1 source) Unable to Assess Drug allergy (disorder) [facility] Repository (1 source) No Known Medication Allergies; Translations: [No Known Medication Allergies] Propensity to adverse reactions (disorder) [facility] Repository Medications Current Medications Medication Drug Class(es) Dates Sig (Normalized) Sig (Original) atorvastatin 20 mg oral tablet (13 sources) HMG-CoA Reductase Inhibitor Start: 01-31-2025 take [...] Active calcium polycarbophil 625 mg oral tablet (15 sources) Start: 12-16-2022 polycarbophil (FIBER, CALCIUM POLYCARBOPHIL,) [...] / vilanterol 0.025 mg/actuat dry powder inhaler (6 sources) Anticholinergic, Corticosteroid, beta2-Adrenergic Agonist Start: 01-19-2025 End: 02-06-2025 take 1 puff(s) by inhalation in the morning fluticasone-umeclid in-vilanter (TRELEGY ELLIPTA) 100-62.5-25 mcg blister with device Inhale 1 puff in the morning. 60 each 5 02/06/2025 Active naproxen 500 mg oral tablet (4 sources) Nonsteroidal Anti-inflammatory Drug Start: 01-30-2025 take [...] Drug Class(es) Dates Sig (Normalized) Sig (Original) [id number] 200 actuat albuterol 0.09 mg/actuat metered dose [...] the morning. 02/22/2024 Discontinued (Therapy completed) vit C,D-Jc-ipeud-lutein -zeaxan (PRESERVISION AREDS-2) 250-90-40-1 mg capsule (3 sources) End: 01-19-2025 vit C,V-Ut-drpdt-lute in-zeaxan (PRESERVISION AREDS-2) 250-90-40-1 mg capsule Taking,but [...] Chronic Chronic obstructive pulmonary disease and bronchiectasis (11 sources) Chronic obstructive lung disease; Translations: [Chronic obstructive pulmonary disease, unspecified] Onset: 02-22-2024 02-22-2024 Chronic Disorders of lipid metabolism (16 sources) Mixed hyperlipidemia; Translations: [Mixed hyperlipidemia] Onset: [...] Onset: 01-19-2025 Chronic Other non-traumatic joint disorders (10 sources) Pain in left shoulder; Translations: [Pain in joint, shoulder region] Onset: 01-19-2025 07-31-2023 Episodic Pleurisy; pneumothorax; pulmonary collapse (1 source) Pleurisy Episodic Retinal detachments; defects; vascular occlusion; and retinopathy (15 sources) 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; Translations: [Exudative age-related macular degeneration, right eye, stage unspecified] Onset: 07-03-2020 06-15-2023 Chronic Spondylosis; intervertebral disc disorders; other back problems (3 sources) Lumbar spondylosis; Translations: [Spondylosis without myelopathy or radiculopathy, lumbar region] 01-31-2025 Chronic Spondylosis; intervertebral disc disorders; other back problems (14 sources) Cervicalgia; Translations: [Chronic low back pain] Onset: 10-12-2021 Episodic Unclassified (1 source) Low back pain, unspecified; Translations: [Low back pain, unspecified] Onset: 01-19-2025 Unclassified (1 source) wellness Onset: 01-19-2025 Unclassified (1 source) Pre-op Exam Onset: 02-22-2024 Unclassified (2 sources) Acute pain of left shoulder 01-31-2025 Past or Other Problems Problem Classification Problem Date Documented Da te Episodic/Chronic Mood disorders (16 sources) Mood disorders Onset: 12-08-2022 Resolved: 02-22-2024 12-08-2022 Other bone disease and musculoskeletal deformities [...] Episodic Other nutritional; endocrine; and metabolic disorders (16 sources) Overweight; Translations: [Overweight] Onset: 08-25-2022 Resolved: [...] Test Name Value Interpretation Reference Range Facility [facility] 01-19-2025 Albumin [Mass/Vol] 4.5 g/dL Normal 3.2-5.3 [facility] Comment on above: Performed By: #### C MP #### [facility] ([facility]) [address] [place] [address] VIR ALP [Catalytic activity/Vol] 88 U/L Normal 39-130 [facility] Comment on above: Performed By: #### C MP #### [facility] ([facility]) [address] [place] [address] VIR ALT [Catalytic activity/Vol] 15 U/L Normal <=31 [facility] Comment on above: Performed By: #### C MP #### [facility] ([facility]) [address] [place] [address] VIR Anion gap [Moles/Vol] 11 mmol/L Normal 5-15 [facility] Comment on above: Performed By: #### C MP #### [facility] ([facility]) [address] [place] [address] VIR AST [Catalytic activity/Vol] 20 U/L Normal <=41 [facility] Comment on above: Performed By: #### C MP #### [facility] ([facility]) [address] [place] [address] VIR Bilirubin [Mass/Vol] 0.5 mg/dL Normal 0.3-1.2 [facility] Comment on above: Performed By: #### C MP #### [facility] ([facility]) [address] [place] [address] VIR Calcium [Mass/Vol] 9.6 mg/dL Normal 8.5-10.5 [facility] Comment on above: Performed By: #### C MP #### [facility] ([facility]) [address] [place] [address] VIR Chloride [Moles/Vol] 102 mmol/L Normal 98-109 [facility] Comment on above: Performed By: #### C MP #### [facility] ([facility]) [address] [place] [address] VIR CO2 [Moles/Vol] 28 mmol/L Normal 22-32 [facility] Comment on above: Performed By: #### C MP #### [facility] ([facility]) [address] [place] [address] VIR Creatinine [Mass/Vol] 0.68 mg/dL Normal 0.40-1.00 [facility] Comment on above: Result Comment: METH OD TRACEABLE TO IDMS STANDARD Performed By: #### C MP #### [facility] ([facility]) [address] [place] [address] VIR EGFR (CKD-EPI) NON-RACE DEPENDENT >^90 Normal >=60 [facility] Comment on above: Result Comment: Repo rted eGFR is based on the CKD-EPI 2020 equation that does not use a race coefficient. Performed By: #### C MP #### [facility] ([facility]) [address] [place] [address] VIR Glucose [Mass/Vol] 99 mg/dL Normal 65-99 [facility] Comment on above: Performed By: #### C MP #### [facility] ([facility]) [address] [place] [address] VIR Potassium [Moles/Vol] 3.9 mmol/L Normal 3.5-5.0 [facility] Comment on above: Performed By: #### C MP #### [facility] ([facility]) [address] [place] [address] VIR Protein [Mass/Vol] 7.2 g/dL Normal 6.0-8.0 [facility] Comment on above: Performed By: #### C MP #### [facility] ([facility]) [address] [place] [address] VIR Sodium [Moles/Vol] 141 mmol/L Normal 134-146 [facility] Comment on above: Performed By: #### C MP #### [facility] ([facility]) [address] [place] [address] VIR Urea nitrogen [Mass/Vol] 15 mg/dL Normal 5-27 [facility] Comment on above: Performed By: #### C MP #### [facility] ([facility]) [address] [place] [address] VIR Comprehensive metabolic pane ish 01-19-2025 Albumin [Mass/Vol] 4.5 g/dL 3.2 - 5.3 g/dL [facility] ALP [Catalytic activity/Vol] 88 U/L 39 - 130 U/L [facility] ALT No additional P-5'-P [Catalytic activity/Vol] 15 U/L NINF - 31 U/L [facility] Anion gap [Moles/Vol] 11 mmol/L 5 - 15 mmol/L [facility] AST [Catalytic activity/Vol] 20 U/L NINF - 41 U/L [facility] Bilirubin [Mass/Vol] 0.5 mg/dL 0.3 - 1 .2 mg/dL [facility] Calcium [Mass/Vol] 9.6 mg/dL 8.5 - 10. 5 mg/dL [facility] Chloride [Moles/Vol] 102 mmol/L 98 - 10 9 mmol/L [facility] CO2 [Moles/Vol] 28 mmol/L 22 - 32 mmol/L [facility] Creatinine [Mass/Vol] 0.68 mg/dL 0.40 - 1.00 mg/dL [facility] Comment on above: METHOD TRACEABLE TO IDWA STANDARD EGFR Non-Race Dependent - PINF [facility] Comment on above: Reported eGFR is bas ed on the CKD-EPI 2020 equation that does not use a race coefficient. Glucose [Mass/Vol] 99 mg/dL 65 - 99 mg/dL [facility] Potassium [Moles/Vol] 3.9 mmol/L 3.5 - 5.0 mmol/L [facility] Protein [Mass/Vol] 7.2 g/dL 6.0 - 8.0 g/dL [facility] Sodium [Moles/Vol] 141 mmol/L 134 - 146 mmol/L [facility] Urea nitrogen [Mass/Vol] 15 mg/dL 5 - 27 mg/dL [facility] LIPID PROFILEon 01-19-2025 Cholesterol [Mass/Vol] 242 mg/dL High 150-200 [facility] Comment on above: Performed By: #### L IPR #### [facility] ([facility]) [address] [place] [address] VIR Cholesterol in HDL [Mass/Vol] 37 mg/dL Low >39 [facility] Comment on above: Result Comment: HDL <40 mg/dL - High Risk HDL > or = 40mg/dL- Desirable HDL >60 mg/dL - Negative Risk Performed By: #### L IPR #### [facility] ([facility]) [address] [place] [address] VIR Cholesterol in LDL [Mass/Vol] 177 mg/dL High <130 [facility] Comment on above: Result Comment: LDL <100 mg/dL - Desirable LDL >160 mg/dL - High Risk Performed By: #### L IPR #### [facility] ([facility]) [address] [place] [address] VIR CHOLESTEROL:HDL 6.5 High 1.0-5.0 [facility] Comment on above: Performed By: #### L IPR #### [facility] ([facility]) [address] [place] [address] VIR Triglyceride [Mass/Vol] 138 mg/dL Normal 27-150 [facility] Comment on above: Performed By: #### L IPR #### [facility] ([facility]) [address] [place] [address] VIR VERY LOW LIPOPROTEIN 28 mg/dL Normal 0-30 [facility] Comment on above: Performed By: #### L IPR #### [facility] ([facility]) [address] [place] [address] VIR Lipid profileon 01-19-2025 Cholesterol [Mass/Vol] 242 mg/dL High 150 - 200 mg/dL [facility] Cholesterol in HDL [Mass/Vol] 37 mg/dL Low 39 - PINF mg/dL [facility] Comment on above: HDL <40 mg/dL - High Risk HDL > or = 40mg/dL- Desirable HDL >60 mg/dL - Negative Risk Cholesterol in HDL [Mass/Vol] 6.5 mg/dL High 1.0 - 5.0 [facility] Cholesterol in LDL [Mass/Vol] 177 mg/dL High NINF - 130 mg/dL [facility] Comment on above: LDL <100 mg/dL - Korey irable LDL >160 mg/dL - High Risk Cholesterol in VLDL [Mass/Vol] 28 mg/dL 0 - 30 mg/dL [facility] Interpretation and review of laboratory results Abnormal [facility] Triglyceride [Mass/Vol] 138 mg/dL 27 - 150 mg/dL [facility] MAGNESIUMon 01-19-2025 Magnesium [Mass/Vol] 2.1 mg/dL Normal 1.8-2.6 [facility] Comment on above: Performed By: #### M G #### [facility] ([facility]) [address] [place] [address] VIR Magnesiumon 01-19-2025 Magnesium [Mass/Vol] 2.1 mg/dL 1.8 - 2 .6 mg/dL 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 Home/Environment Lives with [...] by Angélica Cortez 03/03/2024 14:05 EDT Normal [facility] .eGFRon 02-28-2024 GFR/1.73 sq M.predicted MDRD (S/P/Bld) [Vol rate/Area] mL/min/{1.73_m2} Normal >=60 [facility] Comment on above: Result Comment: [facility] have implemented the eGFR calculation [...] years Performed By: #### A SA #### [facility] (UNKNOWN) [address] [place] [address] CBC w/ Diffon 02-28-2024 Erythrocyte distribution width (RBC) [Ratio] 13.3 % Normal 11.6-14.8 [facility] Comment on above: Performed By: #### A SA #### [facility] (UNKNOWN) [address] [place] [address] Hematocrit (Bld) [Volume fraction] 36.8 % Normal 36.0-46.0 [facility] Comment on above: Performed By: #### A SA #### [facility] (UNKNOWN) [address] [place] [address] Hemoglobin (Bld) [Mass/Vol] 12.2 g/dL Normal 12.0-16.0 [facility] Comment on above: Performed By: #### A SA #### [facility] (UNKNOWN) [address] [place] [address] MCH (RBC) [Entitic mass] 30.8 pg Normal 27.0-35.0 [facility] Comment on above: Performed By: #### A SA #### [facility] (UNKNOWN) [address] [place] [address] MCHC 33.0 % Normal 31.0-37.0 [facility] Comment on above: Performed By: #### A SA #### [facility] (UNKNOWN) [address] [place] [address] MCV (RBC) [Entitic vol] 93.3 fL Normal 80.0-100.0 [facility] Comment on above: Performed By: #### A #### [facility] (UNKNOWN) [address] [place] [address] Platelet 296 x10*3/mcL Normal 150-450 [facility] Comment on above: Performed By: #### A #### [facility] (UNKNOWN) [address] [place] [address] Platelet mean volume (Bld) [Entitic vol] 7.8 fL Normal 6.7-10.6 [facility] Comment on above: Performed By: #### A #### [facility] ([facility]KNOWN) [address] [place] [address] RBC 3.95 x10*6/mcL Normal 3.80-5.20 [facility] Comment on above: Performed By: #### A #### [facility] ([facility]KNOWN) [address] [place] [address] WBC 8.4 x10*3/mcL Normal 4.5-11.0 [facility] Comment on above: Performed By: #### A #### [facility] ([facility]) [address] [place] [address] CMPon 02-28-2024 Albumin [Mass/Vol] 3.4 g/dL Normal 3.2-4.9 [facility] Comment on above: Performed By: #### A CHRISTINE #### [facility] ([facility]KNOWN) [address] [place] [address] Albumin/Globulin [Mass ratio] 1.3 {ratio} Normal 1.1-2.2 [facility] Comment on above: Performed By: #### A CHRISTINE #### [facility] ([facility]KNOWN) [address] [place] [address] Alk Phos 54 IU/L Normal 32-91 [facility] Comment on above: Performed By: #### A CHRISTINE #### [facility] ([facility]KNOWN) [address] [place] [address] ALT [Catalytic activity/Vol] 24 U/L Normal 14-54 [facility] Comment on above: Performed By: #### A CHRISTINE #### [facility] ([facility]) [address] [place] [address] Anion gap [Moles/Vol] 10 mmol/L Normal 4-[address] [facility] Comment on above: Performed By: #### A CHRISTINE #### [facility] ([facility]KNOWN) [address] [place] [address] AST [Catalytic activity/Vol] 25 U/L Normal 15-41 [facility] Comment on above: Performed By: #### A CHRISTINE #### [facility] ([facility]KNOWN) [address] [place] [address] Bili Total 0.5 mg/dL Normal 0.3-1.2 [facility] Comment on above: Performed By: #### A CHRISTINE #### [facility] ([facility]) [address] [place] [address] Calcium [Mass/Vol] 8.8 mg/dL Normal 8.5-10.3 [facility] Comment on above: Performed By: #### A CHRISTINE #### [facility] ([facility]) [address] [place] [address] Chloride [Moles/Vol] 100 mmol/L Normal 98-110 [facility] Comment on above: Performed By: #### A CHRISTINE #### [facility] ([facility]KNOWN) [address] [place] [address] CO2 [Moles/Vol] 29 mmol/L Normal 22-32 [facility] Comment on above: Performed By: #### A CHRISTINE #### [facility] ([facility]KNOWN) [address] [place] [address] Creatinine [Mass/Vol] 0.85 mg/dL Normal 0.44-1.[address] [facility] Comment on above: Performed By: #### A CHRISTINE #### [facility] ([facility]) [address] [place] [address] Glucose [Mass/Vol] 108 mg/dL High 70-99 [facility] Comment on above: Performed By: #### A CHRISTINE #### [facility] ([facility]KNOWN) [address] [place] [address] Potassium [Moles/Vol] 4.3 mmol/L Normal 3.4-4.[address] [facility] Comment on above: Performed By: #### A CHRISTINE #### [facility] ([facility]) [address] [place] [address] Protein [Mass/Vol] 6.0 g/dL Low 6.5-8.1 [facility] Comment on above: Performed By: #### A CHRISTINE #### [facility] ([facility]) [address] [place] [address] Sodium [Moles/Vol] 139 mmol/L Normal 133-142 [facility] Comment on above: Performed By: #### A CHRISTINE #### [facility] ([facility]KNOWN) [address] [place] [address] Urea nitrogen [Mass/Vol] 11 mg/dL Normal 8-26 [facility] Comment on above: Performed By: #### A CHRISTINE #### [facility] ([facility]KNOWN) [address] [place] [address] Urea nitrogen/Creatinine [Mass ratio] 12.9 mg/mg Normal 10.0-20.0 [facility] Comment on above: Performed By: #### A CHRISTINE #### [facility] ([facility]KNOWN) [address] [place] [address] Diff Autoon 02-28-2024 Baso Absolute 0.1 x10*3/mcL Normal 0.0-0.2 [facility] Comment on above: Performed By: #### A CHRISTINE #### [facility] ([facility]KNOWN) [address] [place] [address] Basophils/100 WBC (Bld) 0.8 % Normal 0.0-1.5 [facility] Comment on above: Performed By: #### A CHRISTINE #### [facility] (UNKNOWN) [address] [place] [address] Eos Absolute 0.1 x10*3/mcL Normal 0.0-0.4 [facility] Comment on above: Performed By: #### A CHRISTINE #### [facility] ([facility]KNOWN) [address] [place] [address] Eosinophils/100 WBC (Bld) 0.8 % Normal 0.0-5.4 [facility] Comment on above: Performed By: #### A CHRISTINE #### [facility] (UNKNOWN) [address] [place] [address] Lymph Absolute 2.2 x10*3/mcL Normal 1.0-4.8 [facility] Comment on above: Performed By: #### A CHRISTINE #### [facility] (UNKNOWN) [address] [place] [address] Lymphocytes/100 WBC (Bld) 26.1 % Low 27.2-40.8 [facility] Comment on above: Performed By: #### A CHRISTINE #### [facility] ([facility]KNOWN) [address] [place] [address] [place] Absolute 0.8 x10*3/mcL Normal 0.1-1.1 [facility] Comment on above: Performed By: #### A CHRISTINE #### [facility] ([facility]KNOWN) [address] [place] [address] Monocytes/100 WBC (Bld) 9.5 % Normal 3.7-11.9 [facility] Comment on above: Performed By: #### A CHRISTINE #### [facility] ([facility]KNOWN) [address] [place] [address] Neutro Absolute 5.3 x10*3/mcL Normal 1.8-7.7 [facility] Comment on above: Performed By: #### A CHRISTINE #### [facility] (UNKNOWN) [address] [place] [address] Neutro Auto 62.8 % Normal 47.2-70.8 [facility] Comment on above: Performed By: #### A CHRISTINE #### [facility] (UNKNOWN) [address] [place] [address] Inpatient Clinical Summaryon 02-28-2024 Inpatient Clinical Summary [facility] [address] [place] [address] [address] Clinical Summary Person Information Name: Petrona Anegles Age: 63 Years : 1960 Sex: Female PCP: Rohith Archer DO Marital Status: Single Phone: PCP: Race: White Ethnicity: Not or Language: Citizen Of [place] Visit Id: Visit Reason: Speciality: Acuity: Enc Type: Inpatient Med Service: Surgery Arrival: 02/26/2024 08:53:02 Discharge: Dispo Type: Address: [address] [place] [address] [address] [facility] [id number] Diagnosis: Post-op pain Discharged To: Home Treatments: [...] range between ( 27.2 and 40.8 ) [place] Auto: 9.5 % -- Normal range between [...] range between ( 36.0 and 46.0 ) [place] Absolute: 0.8 x10 MCH: 30.8 pg -- [...] No Immunizations (more content not included)... Normal [facility] Magnesiumon 02-28-2024 Magnesium [Mass/Vol] 1.8 mg/dL Normal 1.7-2.4 [facility] Comment on above: Performed By: #### A SA #### [facility] (UNKNOWN) [address] [place] [address] Phosphoruson 02-28-2024 Phosphate [Mass/Vol] 2.7 mg/dL Normal 2.5-4.6 [facility] Comment on above: Performed By: #### A SA #### [facility] (UNKNOWN) [address] [place] [address] Surgical Progress Noteon Surgical Progress Note Patient tolerating diet did not like her arm at this morning no nausea no vomiting No gas or BM yet Pain is well-controlled Ambulating in the halls Status post sigmoidectomy and rectopexy Awaiting bowel function Discharge this afternoon versus tomorrow Electronically signed by Iván Sapp MD 02/28/24 10:33 EDT Normal [facility] .eGFRon 02-27-2024 GFR/1.73 sq M.predicted MDRD (S/P/Bld) [Vol rate/Area] mL/min/{1.73_m2} Normal >=60 [facility] Comment on above: Result Comment: [facility] have implemented the eGFR calculation [...] years Performed By: #### A SA #### [facility] (UNKNOWN) [address] [place] [address] CBC w/ Diffon 02-27-2024 Erythrocyte distribution width (RBC) [Ratio] 12.8 % Normal 11.6-14.8 [facility] Comment on above: Performed By: #### A SA #### [facility] (UNKNOWN) [address] [place] [address] Hematocrit (Bld) [Volume fraction] 36.9 % Normal 36.0-46.0 [facility] Comment on above: Performed By: #### A SA #### [facility] (UNKNOWN) [address] [place] [address] Hemoglobin (Bld) [Mass/Vol] 12.6 g/dL Normal 12.0-16.0 [facility] Comment on above: Performed By: #### A SA #### [facility] (UNKNOWN) [address] [place] [address] MCH (RBC) [Entitic mass] 31.4 pg Normal 27.0-35.0 [facility] Comment on above: Performed By: #### A SA #### [facility] (UNKNOWN) [address] [place] [address] MCHC 34.1 % Normal 31.0-37.0 [facility] Comment on above: Performed By: #### A SA #### [facility] (UNKNOWN) [address] [place] [address] MCV (RBC) [Entitic vol] 92.0 fL Normal 80.0-100.0 [facility] Comment on above: Performed By: #### A SA #### [facility] (UNKNOWN) [address] [place] [address] Platelet 329 x10*3/mcL Normal 150-450 [facility] Comment on above: Performed By: #### A SA #### [facility] (UNKNOWN) [address] [place] [address] Platelet mean volume (Bld) [Entitic vol] 7.9 fL Normal 6.7-10.6 [facility] Comment on above: Performed By: #### A SA #### [facility] (UNKNOWN) [address] [place] [address] RBC 4.01 x10*6/mcL Normal 3.80-5.20 [facility] Comment on above: Performed By: #### A #### [facility] ([facility]KNOWN) [address] [place] [address] WBC 11.7 x10*3/mcL High 4.5-11.0 [facility] Comment on above: Performed By: #### A #### [facility] ([facility]KNOWN) [address] [place] [address] CMPon 02-27-2024 Albumin [Mass/Vol] 3.3 g/dL Normal 3.2-4.9 [facility] Comment on above: Performed By: #### A CHRISTINE #### [facility] ([facility]KNOWN) [address] [place] [address] Albumin/Globulin [Mass ratio] 1.2 {ratio} Normal 1.1-2.2 [facility] Comment on above: Performed By: #### A CHRISTINE #### [facility] ([facility]KNOWN) [address] [place] [address] Alk Phos 62 IU/L Normal 32-91 [facility] Comment on above: Performed By: #### A CHRISTINE #### [facility] ([facility]KNOWN) [address] [place] [address] ALT [Catalytic activity/Vol] 15 U/L Normal 14-54 [facility] Comment on above: Performed By: #### A CHRISTINE #### [facility] ([facility]KNOWN) [address] [place] [address] Anion gap [Moles/Vol] 8 mmol/L Normal 4-[address] [facility] Comment on above: Performed By: #### A CHRISTINE #### [facility] (UNKNOWN) [address] [place] [address] AST [Catalytic activity/Vol] 19 U/L Normal 15-41 [facility] Comment on above: Performed By: #### A CHRISTINE #### [facility] (UNKNOWN) [address] [place] [address] Bili Total 0.9 mg/dL Normal 0.3-1.2 [facility] Comment on above: Performed By: #### A CHRISTINE #### [facility] (UNKNOWN) [address] [place] [address] Calcium [Mass/Vol] 8.5 mg/dL Normal 8.5-10.3 [facility] Comment on above: Performed By: #### A CHRISTINE #### [facility] ([facility]KNOWN) [address] [place] [address] Chloride [Moles/Vol] 101 mmol/L Normal 98-110 [facility] Comment on above: Performed By: #### A CHRISTINE #### [facility] ([facility]KNOWN) [address] [place] [address] CO2 [Moles/Vol] 23 mmol/L Normal 22-32 [facility] Comment on above: Performed By: #### A CHRISTINE #### [facility] ([facility]KNOWN) [address] [place] [address] Creatinine [Mass/Vol] 0.79 mg/dL Normal 0.44-1.[address] [facility] Comment on above: Performed By: #### A CHRISTINE #### [facility] ([facility]) [address] [place] [address] Glucose [Mass/Vol] 119 mg/dL High 70-99 [facility] Comment on above: Performed By: #### A CHRISTINE #### [facility] ([facility]KNOWN) [address] [place] [address] Potassium [Moles/Vol] 4.2 mmol/L Normal 3.4-4.[address] [facility] Comment on above: Performed By: #### A CHRISTINE #### [facility] (UNKNOWN) [address] [facility] [place] [address] Protein [Mass/Vol] 6.0 g/dL Low 6.5-8.1 [facility] Comment on above: Performed By: #### A CHRISTINE #### [facility] ([facility]KNOWN) [address] [place] [address] Sodium [Moles/Vol] 132 mmol/L Low 133-142 [facility] Comment on above: Performed By: #### A CHRISTINE #### [facility] ([facility]KNOWN) [address] [place] [address] Urea nitrogen [Mass/Vol] 16 mg/dL Normal 8-26 [facility] Comment on above: Performed By: #### A CHRISTINE #### [facility] ([facility]KNOWN) [address] [place] [address] Urea nitrogen/Creatinine [Mass ratio] 20.3 mg/mg High 10.0-20.0 [facility] Comment on above: Performed By: #### A CHRISTINE #### [facility] ([facility]KNOWN) [address] [place] [address] Diff Autoon 02-27-2024 Baso Absolute 0.0 x10*3/mcL Normal 0.0-0.2 [facility] Comment on above: Performed By: #### A #### [facility] ([facility]KNOWN) [address] [place] [address] Basophils/100 WBC (Bld) 0.3 % Normal 0.0-1.5 [facility] Comment on above: Performed By: #### A SA #### [facility] ([facility]KNOWN) [address] [place] [address] Eos Absolute 0.0 x10*3/mcL Normal 0.0-0.4 [facility] Comment on above: Performed By: #### A #### [facility] ([facility]KNOWN) [address] [place] [address] Eosinophils/100 WBC (Bld) 0.0 % Normal 0.0-5.4 [facility] Comment on above: Performed By: #### A SA #### [facility] (UNKNOWN) [address] [place] [address] Lymph Absolute 0.9 x10*3/mcL Low 1.0-4.8 [facility] Comment on above: Performed By: #### A SA #### [facility] ([facility]KNOWN) [address] [place] [address] Lymphocytes/100 WBC (Bld) 7.4 % Low 27.2-40.8 [facility] Comment on above: Performed By: #### A SA #### [facility] (UNKNOWN) [address] [place] [address] [place] Absolute 0.9 x10*3/mcL Normal 0.1-1.1 [facility] Comment on above: Performed By: #### A SA #### [facility] (UNKNOWN) [address] [place] [address] Monocytes/100 WBC (Bld) 7.8 % Normal 3.7-11.9 [facility] Comment on above: Performed By: #### A SA #### [facility] ([facility]KNOWN) [address] [place] [address] Neutro Absolute 9.9 x10*3/mcL High 1.8-7.7 [facility] Comment on above: Performed By: #### A SA #### [facility] ([facility]KNOWN) [address] [place] [address] Neutro Auto 84.5 % High 47.2-70.8 [facility] Comment on above: Performed By: #### A SA #### [facility] ([facility]KNOWN) [address] [place] [address] Magnesiumon 02-27-2024 Magnesium [Mass/Vol] 1.6 mg/dL Low 1.7-2.4 [facility] Comment on above: Performed By: #### M G #### [facility] [address] [place] [address] Phosphoruson 02-27-2024 Phosphate [Mass/Vol] 3.8 mg/dL Normal 2.5-4.6 [facility] Comment on above: Performed By: #### A SA #### [facility] (UNKNOWN) [address] [place] [address] Surgical Progress Noteon Surgical Progress Note Patient [...] RODRÍGUEZ, Iván Kimble 02/27/24 10:53 EDT Normal [facility] Operative Reporton 4 Operative Report Indication for Surgery Rectal prolapse Preoperative Diagnosis Same Postoperative Diagnosis Sigmoid colectomy with rectopexy Operation Rectopexy Robotic X/Xi Resection Sigmoid Colon Robotic X/Xi Surgeon(s) Sulma RODRÍGUEZ, Eveline Valenzuela (Surgeon - Primary) Sales And Marketing Coordinator Patito SOTO, Nae Felipe (Translation Director) Anesthesia General Juan Miguel Negron DO (It Infrastructure Project Manager) Estimated Blood Loss 15 mL Urine Output [...] in the right upper quadrant as an district administrative assistant port. The patient was then placed [...] EEA stapler was then inserted by the district administrative assistant into the proximal anterior aspect of the rectal stump just distal to staple line to allow for performing the anastomosis anteriorly wh (more content not included)... Normal [facility] .eGFRon 02-16-2024 GFR/1.73 sq M.predicted MDRD (S/P/Bld) [Vol rate/Area] mL/min/{1.73_m2} Normal >=60 [facility] Comment on above: Order Comment: Order added by Discern rule Result Comment: [facility] have implemented the eGFR calculation [...] years Performed By: #### A CHRISTINE #### [facility] (UNKNOWN) [address] [place] [address] GFR/1.73 sq M.predicted MDRD (S/P/Bld) [Vol rate/Area] mL/min/{1.73_m2} Normal >=60 [facility] Comment on above: Order Comment: Order added by Discern Rule. Result Comment: [facility] have implemented the eGFR calculation [...] years Performed By: #### A CHRISTINE #### [facility] ([facility]KNOWN) [address] [place] [address] ABO/Rhon 02-16-2024 ABO/Rh ABO/Rh: B POS Normal [facility] Comment on above: Performed By: #### A CHRISTINE #### [facility] (UNKNOWN) [address] [place] [address] ABSC Autoon 02-16-2024 ABSC Auto Negative Normal [facility] Comment on above: Performed By: #### A #### [facility] (UNKNOWN) [address] [place] [address] CBC w/ Diffon 02-16-2024 Erythrocyte distribution width (RBC) [Ratio] 13.0 % Normal 11.6-14.8 [facility] Comment on above: Performed By: #### A CHRISTINE #### [facility] (UNKNOWN) [address] [place] [address] Hematocrit (Bld) [Volume fraction] 41.7 % Normal 36.0-46.0 [facility] Comment on above: Performed By: #### A CHRISTINE #### [facility] (UNKNOWN) [address] [place] [address] Hemoglobin (Bld) [Mass/Vol] 14.4 g/dL Normal 12.0-16.0 [facility] Comment on above: Performed By: #### A CHRISTINE #### [facility] ([facility]KNOWN) [address] [place] [address] MCH (RBC) [Entitic mass] 31.8 pg Normal 27.0-35.0 [facility] Comment on above: Performed By: #### A CHRISTINE #### [facility] (UNKNOWN) [address] [place] [address] MCHC 34.4 % Normal 31.0-37.0 [facility] Comment on above: Performed By: #### A CHRISTINE #### [facility] (UNKNOWN) [address] [place] [address] MCV (RBC) [Entitic vol] 92.5 fL Normal 80.0-100.0 [facility] Comment on above: Performed By: #### A CHRISTINE #### [facility] ([facility]KNOWN) [address] [place] [address] Platelet 378 x10*3/mcL Normal 150-450 [facility] Comment on above: Performed By: #### A CHRISTINE #### [facility] (UNKNOWN) [address] [place] [address] Platelet mean volume (Bld) [Entitic vol] 6.9 fL Low 7.5-11.5 [facility] Comment on above: Performed By: #### A CHRISTINE #### [facility] (UNKNOWN) [address] [place] [address] RBC 4.51 x10*6/mcL Normal 3.80-5.20 [facility] Comment on above: Performed By: #### A CHRISTINE #### [facility] (UNKNOWN) [address] [place] [address] WBC 7.4 x10*3/mcL Normal 4.5-11.0 [facility] Comment on above: Performed By: #### A CHRISTINE #### [facility] (UNKNOWN) [address] [place] [address] CMPon 02-16-2024 Albumin [Mass/Vol] 4.6 g/dL Normal 3.7-5.3 [facility] Comment on above: Performed By: #### A #### [facility] (UNKNOWN) [address] [place] [address] Albumin/Globulin [Mass ratio] 1.7 {ratio} Normal 1.1-2.2 [facility] Comment on above: Performed By: #### A #### [facility] ([facility]KNOWN) [address] [place] [address] Alk Phos 80 IU/L Normal 34-104 [facility] Comment on above: Performed By: #### A #### [facility] (UNKNOWN) [address] [place] [address] ALT [Catalytic activity/Vol] 12 U/L Normal 7-52 [facility] Comment on above: Performed By: #### A #### [facility] (UNKNOWN) [address] [place] [address] Anion gap [Moles/Vol] 4 mmol/L Normal 4-[address] [facility] Comment on above: Performed By: #### A SA #### [facility] (UNKNOWN) [address] [place] [address] AST [Catalytic activity/Vol] 17 U/L Normal 13-39 [facility] Comment on above: Performed By: #### A #### [facility] (UNKNOWN) [address] [place] [address] Bili Total 0.5 mg/dL Normal 0.3-1.0 [facility] Comment on above: Performed By: #### A SA #### [facility] (UNKNOWN) [address] [place] [address] Calcium [Mass/Vol] 9.9 mg/dL Normal 8.6-10.3 [facility] Comment on above: Performed By: #### A SA #### [facility] (UNKNOWN) [address] [place] [address] Chloride 103 IU/L Normal 98-107 [facility] Comment on above: Performed By: #### A SA #### [facility] (UNKNOWN) [address] [place] [address] CO2 [Moles/Vol] 31 mmol/L Normal 21-31 [facility] Comment on above: Performed By: #### A SA #### [facility] (UNKNOWN) [address] [place] [address] Creatinine [Mass/Vol] 0.59 mg/dL Low 0.60-1.[address] [facility] Comment on above: Performed By: #### A SA #### [facility] (UNKNOWN) [address] [place] [address] Glucose [Mass/Vol] 90 mg/dL Normal 70-99 [facility] Comment on above: Performed By: #### A SA #### [facility] (UNKNOWN) [address] [place] [address] Potassium [Moles/Vol] 4.3 mmol/L Normal 3.4-4.[address] [facility] Comment on above: Performed By: #### A SA #### [facility] (UNKNOWN) [address] [place] [address] Protein [Mass/Vol] 7.3 g/dL Normal 6.0-8.3 [facility] Comment on above: Performed By: #### A SA #### [facility] ([facility]KNOWN) [address] [place] [address] Sodium [Moles/Vol] 138 mmol/L Normal 136-145 [facility] Comment on above: Performed By: #### A SA #### [facility] (UNKNOWN) [address] [place] [address] Urea nitrogen [Mass/Vol] 10 mg/dL Normal 7-25 [facility] Comment on above: Performed By: #### A SA #### [facility] (UNKNOWN) [address] [place] [address] Urea nitrogen/Creatinine [Mass ratio] 16.9 mg/mg Normal 10.0-20.0 [facility] Comment on above: Performed By: #### A SA #### [facility] (UNKNOWN) [address] [place] [address] CT Abdomen Pelvis w/ IV Cont [facility] 02-16-2024 CT Abdomen Pelvis w/ IV Contrast [...] extend through the anus. Radiation Dose Estimate: CTDI(mGy):0.219966 / / / kVp:100.722647 / mAs:0.355276 / / / DLP(mGy-cm):0.094870 Body Part: Abdomen CTDI(mGy):4.491853 / / / kVp:80.623448 / mAs:128.721023 / / / DLP(mGy-cm):192.0000 00Body Part: Abdomen Final Dictated by: Irma Estevez MD Dictated DT/TM: 02.16.2024 3:59 pm Signed by: Irma Estevez MD Signed (Electronic Signature): 02.16.2024 4:12 pm (If Report Is Signed, Electronically Signed in Other Vendor System) Normal [facility] Comment on above: Order Comment: tatiana khan order signed 02/04/24 - [facility] [place] Diff Autoon 02-16-2024 Baso Absolute 0.1 x10*3/mcL Normal 0.0-0.2 [facility] Comment on above: Performed By: #### A SA #### [facility] (UNKNOWN) [address] [place] [address] Basophils/100 WBC (Bld) 1.1 % Normal 0.0-1.5 [facility] Comment on above: Performed By: #### A SA #### [facility] (UNKNOWN) [address] [place] [address] Eos Absolute 0.1 x10*3/mcL Normal 0.0-0.4 [facility] Comment on above: Performed By: #### A SA #### [facility] (UNKNOWN) [address] [place] [address] Eosinophils/100 WBC (Bld) 1.4 % Normal 0.0-5.4 [facility] Comment on above: Performed By: #### A SA #### [facility] (UNKNOWN) [address] [place] [address] Lymph Absolute 2.0 x10*3/mcL Normal 1.0-4.8 [facility] Comment on above: Performed By: #### A SA #### [facility] (UNKNOWN) [address] [place] [address] Lymphocytes/100 WBC (Bld) 26.9 % Low 27.2-40.8 [facility] Comment on above: Performed By: #### A SA #### [facility] (UNKNOWN) [address] [place] [address] [place] Absolute 0.5 x10*3/mcL Normal 0.1-1.1 [facility] Comment on above: Performed By: #### A #### [facility] (UNKNOWN) [address] [place] [address] Monocytes/100 WBC (Bld) 6.9 % Normal 3.7-11.9 [facility] Comment on above: Performed By: #### A #### [facility] (UNKNOWN) [address] [place] [address] Neutro Absolute 4.7 x10*3/mcL Normal 1.8-7.7 [facility] Comment on above: Performed By: #### A #### [facility] (UNKNOWN) [address] [place] [address] Neutro Auto 63.7 % Normal 47.2-70.8 [facility] Comment on above: Performed By: #### A #### [facility] (UNKNOWN) [address] [place] [address] POC Creatinine Von POC Crea iStat Venous 0.6 mg/dL Normal 0.6-1.[address] [facility] Comment on above: Performed By: #### A CHRISTINE #### [facility] (UNKNOWN) [address] [place] [address] Surgery Office/Clinic Noteon 02-04-2024 Surgery Office/Clinic Note Chief Complaint Rectal protrusion History of Present Illness 63 year old female, referred by Dr. Amanda ([facility]), patient of Colin Sarah Patient is here with c/o protrusion from the rectum that has been an ongoing issue for many years, but worsening lately. States it is becoming more difficult to reduce. She denies constipation or straining and bleeding. Last colonoscopy 01-14-2023 in [place], diverticulosis and tubular adenoma x2. The patient [...] (01/14/2023) Medicatio (more content not included)... Normal [facility] COMPREHENSIVE METABOLIC PANE Ish 09-01-2023 Albumin [Mass/Vol] 4.5 g/dL Normal 3.2-5.3 [facility] Comment on above: Performed By: #### C TAMRA, 06575-0 #### [facility] ([id number]) [address], [address] [place] [address] ALP [Catalytic activity/Vol] 73 U/L Normal 39-130 [facility] Comment on above: Performed By: #### C TAMRA, 04872-4 #### [facility] ([id number]) [address] [place] [address] ALT [Catalytic activity/Vol] 21 U/L Normal 0-31 [facility] Comment on above: Performed By: #### Huseyin BARBOZA, 29180-9 #### [facility] ([id number]) [address] [place] [address] Anion gap [Moles/Vol] 8 mmol/L Normal 5-15 [facility] Comment on above: Performed By: #### Huseyin BARBOZA, 14452-7 #### [facility] ([id number]) [address], [address] [place] [address] AST [Catalytic activity/Vol] 24 U/L Normal 0-41 [facility] Comment on above: Performed By: #### Huseyin BARBOZA, 92133-3 #### [facility] ([id number]) [address], [address] [place] [address] Bilirubin [Mass/Vol] 0.3 mg/dL Normal 0.3-1.2 [facility] Comment on above: Performed By: #### Huseyin BARBOZA, 41949-6 #### [facility] ([id number]) [address], [address] [place] [address] Calcium [Mass/Vol] 9.4 mg/dL Normal 8.5-10.5 [facility] Comment on above: Performed By: #### Huseyin BARBOZA, 38910-9 #### [facility] ([id number]) [address], [address] [place] [address] Chloride [Moles/Vol] 102 mmol/L Normal 98-109 [facility] Comment on above: Performed By: #### Huseyin BARBOZA, 82285-1 #### [facility] ([id number]) [address] [place] [address] CO2 [Moles/Vol] 30 mmol/L Normal 22-32 [facility] Comment on above: Performed By: #### Huseyin BARBOZA, 41860-8 #### [facility] ([id number]) [address] [place] [address] Creatinine [Mass/Vol] 0.58 mg/dL Normal 0.40-1.00 [facility] Comment on above: Result Comment: METH OD TRACEABLE TO IDMS STANDARD Performed By: #### Huseyin BARBOZA, 02527-9 #### [facility] ([id number]) [address] [place] [address] eGFR (CKD-EPI) NON-RACE DEPENDENT >90 Normal >59 [facility] Comment on above: Result Comment: Reported eGFR is based on the CKD-EPI 2020 equation that does not use a race coefficient. Performed By: #### Huseyin BARBOZA, 08106-2 #### [facility] ([id number]) [address] [place] [address] Glucose [Mass/Vol] 98 mg/dL Normal 65-99 [facility] Comment on above: Performed By: #### Huseyin BARBOZA, 30210-5 #### [facility] ([id number]) [address] [place] [address] Potassium [Moles/Vol] 4.5 mmol/L Normal 3.5-5.0 [facility] Comment on above: Performed By: #### Huseyin BARBOZA, 84287-1 #### [facility] ([id number]) [address] [place] [address] Protein [Mass/Vol] 6.9 g/dL Normal 6.0-8.0 [facility] Comment on above: Performed By: #### Huseyin BARBOZA, 40226-0 #### [facility] ([id number]) [address] [place] [address] Sodium [Moles/Vol] 140 mmol/L Normal 134-146 [facility] Comment on above: Performed By: #### C TAMRA, 75785-3 #### [facility] ([id number]) [address] [place] [address] Urea nitrogen [Mass/Vol] 12 mg/dL Normal 5-27 [facility] Comment on above: Performed By: #### C TAMRA, 97052-1 #### [facility] ([id number]) [address] [place] [address] Comprehensive metabolic pane ish 09-01-2023 Albumin [Mass/Vol] 4.5 g/dL 3.2 - 5.3 g/dL [facility] ALP [Catalytic activity/Vol] 73 U/L 39 - 130 U/L [facility] ALT No additional P-5'-P [Catalytic activity/Vol] 21 U/L 0 - 31 U/L [facility] Anion gap [Moles/Vol] 8 mmol/L 5 - 15 mmol/L [facility] AST [Catalytic activity/Vol] 24 U/L 0 - 41 U/L [facility] Bilirubin [Mass/Vol] 0.3 mg/dL 0.3 - 1 .2 mg/dL [facility] Calcium [Mass/Vol] 9.4 mg/dL 8.5 - 10. 5 mg/dL [facility] Chloride [Moles/Vol] 102 mmol/L 98 - 10 9 mmol/L [facility] CO2 [Moles/Vol] 30 mmol/L 22 - 32 mmol/L [facility] Creatinine [Mass/Vol] 0.58 mg/dL 0.40 - 1.00 mg/dL [facility] Comment on above: METHOD TRACEABLE TO IDWA STANDARD eGFR (CKD-EPI)non-race dependent - PINF [facility] Comment on above: Reported eGFR is based on the CKD-EPI 2020 equation that does not use a race coefficient. Glucose [Mass/Vol] 98 mg/dL 65 - 99 mg/dL [facility] Potassium [Moles/Vol] 4.5 mmol/L 3.5 - 5.0 mmol/L [facility] Protein [Mass/Vol] 6.9 g/dL 6.0 - 8.0 g/dL [facility] Sodium [Moles/Vol] 140 mmol/L 134 - 146 mmol/L [facility] Urea nitrogen [Mass/Vol] 12 mg/dL 5 - 27 mg/dL [facility] Lipid 1996 panelon 4 Cholesterol [Mass/Vol] 191 mg/dL 150 - 200 mg/dL [facility] Cholesterol in HDL [Mass/Vol] 54 mg/dL 39 - PINF mg/dL [facility] Comment on above: HDL <40 mg/dL - High Risk HDL > or = 40mg/dL- Desirable HDL >60 mg/dL - Negative Risk Cholesterol in LDL [Mass/Vol] 111 mg/dL NINF - 130 mg/dL [facility] Comment on above: LDL <100 mg/dL - Desirable LDL >160 mg/dL - High Risk Cholesterol in VLDL [Mass/Vol] 26 mg/dL 0 - 30 mg/dL [facility] Cholesterol.total/Cho lesterol in HDL [Mass ratio] 3.5 {ratio} 1.0 - 5.0 [facility] Triglyceride [Mass/Vol] 130 mg/dL 27 - 150 mg/dL [facility] Cholesterol [Mass/Vol] 191 mg/dL Normal 150-200 [facility] Comment on above: Performed By: #### C , 82035-2 #### [facility] ([id number]) [address] [place] [address] Cholesterol in HDL [Mass/Vol] 54 mg/dL Normal >39 [facility] Comment on above: Result Comment: HDL <40 mg/dL - High Risk HDL > or = 40mg/dL- Desirable HDL >60 mg/dL - Negative Risk Performed By: #### Huseyin BARBOZA, 84297-5 #### [facility] ([id number]) [address], [facility] [address] [place] [address] Cholesterol in LDL [Mass/Vol] 111 mg/dL Normal <130 [facility] Comment on above: Result Comment: LDL <100 mg/dL - Desirable LDL >160 mg/dL - High Risk Performed By: #### Huseyin BARBOZA, 84555-1 #### [facility] ([id number]) [address] [facility] [address] [place] [address] Cholesterol in VLDL [Mass/Vol] 26 mg/dL Normal 0-30 [facility] Comment on above: Performed By: #### Huseyin BARBOZA, 54280-0 #### [facility] ([id number]) [address] [facility] [address] [place] [address] CHOLESTEROL:HDL 3.5 Normal 1.0-5.0 [facility] Comment on above: Performed By: #### Huseyin BARBOZA, 70669-4 #### [facility] ([id number]) [address] [address] Triglyceride [Mass/Vol] 130 mg/dL Normal 27-150 [facility] Comment on above: Performed By: #### Huseyin BARBOZA, 72440-5 #### [facility] ([id number]) [address], [address] [address] No Panel Informationon 08-31 [facility] POCT EKGOrdered By: Cami quezada on 06-15-2023 [facility] Outside Colonoscopyon 2022 Outside Colonoscopy [id number]#1.00CD:127 [facility] Pathology Noteon 01-21-2023 Pathology Note [id number] #1.00CD:127 [facility] Reminderson 01-21-2023 Reminders - From: Elisa Patel LPN To: JOVANYN - Clinical; Sent: 01/21/2023 10:07:40 EDT Show up: 12/15/2027 07:00:00 EDT Subject: colonoscopy recall Due Date/Time: 01/15/2028 07:00:00 EDT Reminder/Recall Patient due for surveillance colonoscopy 01/15/2028. [facility] Insurance Correspondenceon 0 12-26-2022 Insurance Correspondence [id number]#1.00CD:127 [facility] Consent for Procedure/Surger yon 12-17-2022 Consent for Procedure/Surgery [id number] #1.00CD:127 [facility] Facesheeton 12-17-2022 Facesheet [id number] #1.00CD:127 [facility] Ambulatory Visit Summaryon 0 12-16-2022 Ambulatory Visit Summary HEIDI PETRONA Donato :1960 Visit Date:12/16/2022 Ambulatory Visit Instructions Your [...] Screening for malignant neoplasm of colon Normal [facility] Physician Referralon 023 Physician Referral [id number] #1.00CD:127 Normal [facility] CT LUNG CANCER SCREENINGon 0 [...] by: GABRIEL ROBERTSON Date: 2022-09-29 17:03 [facility] COVID + FLU Quick Testingon 05-31-2022 SARS-CoV-2 (COVID-19) RNA MILAN+probe Ql (Unsp spec) Negative [employer] Other COVID + FLU Quick Testing Negative [facility] [employer] Other XR chest 2V*on 05-31-2022 XR chest 2V* [facility] [address] [place] [address] XRay Report Signed Patient: Petrona Angeles MR#: [id number] : 1960 Acct:[id number] Age/Sex: 61 / F ADM Date: 05/31/22 Loc: XDUCLY Room: Type: [facility] Attending Dr: Janice MORELOS Copies to: [...] Keyonna Head M.D.05/31/2022 1:14 PM Dictation Location: [place] [address] Transcribed By: [place] 05/31/22 1314 Dictated By: Keyonna Head MD 05/31/22 1313 Signed By: 05/31/22 1314 Normal [facility] XR chest 2V* [facility] [employer] Other XR chest 2V* [facility] [employer] Other XR chest 2V* [address] [facility] [employer] Other XR chest 2V* [place] [address] [employer] Other XR chest 2V* XRay Report [employer] Other XR chest 2V* Signed [employer] Other XR chest 2V* Patient: Petrona Angeles MR#: [id number] [employer] Other XR chest 2V* [id number] [employer] Other XR chest 2V* : 1960 Acct:[id number] [employer] Other XR chest 2V* Age/Sex: 61 / F ADM Date: 05/31/22 [employer] Other XR chest 2V* Loc: XDUCLY Room: Type: [facility] [employer] Other XR chest 2V* Attending Dr: Janice MORELOS [employer] Other XR chest 2V* Copies to: JETHRO Robles [employer] Other XR chest 2V* Ordering Provider: JETHRO Robles [employer] Other XR chest 2V* Date of Service: 05/31/22 [employer] Other XR chest 2V* XR/XR chest 2V*: COUGH [employer] Other XR chest 2V* PA AND LATERAL CHEST: [employer] Other XR chest 2V* CLINICAL HISTORY: Chest tightness on the right and productive cough [employer] Other XR chest 2V* COMPARISON: None [employer] Other XR chest 2V* The lungs are hyperinflated. There are minor chronic changes. There is no focal parenchymal [employer] Other XR chest 2V* consolidation, effusion or pneumothorax. The cardiac, hilar and mediastinal silhouettes are within [employer] Other XR chest 2V* normal limits. There is no vascular congestion. The visualized bony thorax is intact. Endplate [facility] [employer] Other XR chest 2V* spurring is present. [facility] Other XR chest 2V* XR/XR chest 2V* [facility] [employer] Other XR chest 2V* IMPRESSION: [facility] [employer] Other XR chest 2V* OBSTRUCTIVE LUNG DISEASE. [facility] [employer] Other XR chest 2V* NO ACUTE CARDIOPULMONARY ABNORMALITY. [facility] [employer] Other XR chest 2V* Impression dictated by: Keyonna Heda M.D.05/31/2022 1:14 PM [facility] [employer] Other XR chest 2V* Dictation Location: [address] [employer] Other XR chest 2V* Transcribed By: LAUREEN 05/31/[address] [place] [address] [employer] Other XR chest 2V* Dictated By: Keyonna Head MD 05/31/22 [facility] [employer] Other XR chest 2V* Signed By: [employer] Other XR chest 2V* 05/31/22 [facility] [employer] Other COVID Quick Testingon 2021 Result Positive [facility] [employer] Other XR CSPINE 2_3 VIEWSon 2021 XR [...] paraspinous abnormality is seen. OTHER: Negative. 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 Electronically authenticated by: LOLIS CALLAWAY Date: 2021-10-14 07:09 Normal [facility] COVMAHSA Quick Testingon 2020 Result Negative [employer] Other Vital Signs Date Time Vital Sign Value Performing Clinician Facility 01-19-2025 15:19-0400 Body height 160 cm [facility]long [facility] 01-19-2025 15:19-0400 Body mass index (BMI) [Ratio] 24.1 kg/m2 Rohith Furlong DO [facility] 01-19-2025 15:19-0400 Body temperature 98.01 [degF] Rohith Furlong DO [facility] 01-19-2025 15:19-0400 Body weight 61.69 kg Rohith Furlong DO [facility] 01-19-2025 15:19-0400 Diastolic blood pressure 82 mm[Hg] Rohith Furlong DO [facility] 01-19-2025 15:19-0400 Heart rate 94 /min Rohith Furlong DO [facility] 01-19-2025 15:19-0400 Respiratory rate 18 /min Rohith Furlong DO [facility] 01-19-2025 15:19-0400 SaO2% (BldA) [Mass fraction] 93 % Rohith Furlong DO Work [facility] 01-19-2025 15:19-0400 Systolic blood pressure 124 mm[Hg] Rohith Furlong DO Work [facility] 02-22-2024 11:04-0400 Body height 160 cm Rohith Furlong DO Work Phone: [facility] 02-22-2024 11:04-0400 Body mass index (BMI) [Ratio] 23.24 kg/m2 Rohith Furlong DO Work Phone: [facility] 02-22-2024 11:04-0400 Body temperature 97.81 [degF] Rohith Furlong DO Work Phone: [facility] 02-22-2024 11:04-0400 Body weight 59.51 kg Rohith Furlong DO Work Phone: [facility] 02-22-2024 11:04-0400 Diastolic blood pressure 58 mm[Hg] Rohith Furlong DO Work Phone: [facility] 02-22-2024 11:04-0400 Heart rate 79 /min Rohith Furlong DO Work Phone: [facility] 02-22-2024 11:04-0400 Respiratory rate 18 /min Rohith Furlong DO Work Phone: [facility] 02-22-2024 11:04-0400 SaO2% (BldA) [Mass fraction] 96 % Rohith Furlong DO Work Phone: [facility] 02-22-2024 11:04-0400 Systolic blood pressure 118 mm[Hg] Rohith Furlong DO Work Phone: [facility] 09-01-2023 15:20-0400 Body height 160 cm Rohith Furlong DO Work Phone: [facility] 09-01-2023 15:20-0400 Body mass index (BMI) [Ratio] 23.74 kg/m2 Rohith Furlong DO Work Phone: [facility] 09-01-2023 15:20-0400 Body temperature 98.4 [degF] Rohith Furlong DO Work Phone: [facility] 09-01-2023 15:20-0400 Body weight 60.78 kg Rohith Furlong DO Work Phone: [facility] 09-01-2023 15:20-0400 Diastolic blood pressure 72 mm[Hg] Rohith Furlong DO Work Phone: [facility] 09-01-2023 15:20-0400 Heart rate 82 /min Rohith Furlong DO Work Phone: [facility] 09-01-2023 15:20-0400 Respiratory rate 18 /min Rohith Furlong DO Work Phone: [facility] 09-01-2023 15:20-0400 SaO2% (BldA) [Mass fraction] 94 % Rohith Furlong DO Work Phone: [facility] 09-01-2023 15:20-0400 Systolic blood pressure 110 mm[Hg] Rohith Furlong DO Work Phone: [facility] 07-31-2023 10:55-0500 Body height 160 cm Rohith Furlong DO Work Phone: [facility] 07-31-2023 10:55-0500 Body mass index (BMI) [Ratio] 23.38 kg/m2 Rohith Furlong DO Work Phone: [facility] 07-31-2023 10:55-0500 Body temperature 97.9 [degF] Rohith Furlong DO Work Phone: [facility] 07-31-2023 10:55-0500 Body weight 59.88 kg Rohith Furlong DO Work Phone: [facility] 07-31-2023 10:55-0500 Diastolic blood pressure 70 mm[Hg] Rohith Furlong DO Work Phone: [facility] 07-31-2023 10:55-0500 Heart rate 100 /min Rohith Furlong DO Work Phone: [facility] 07-31-2023 10:55-0500 SaO2% (BldA) [Mass fraction] 95 % Rohith Kimng DO Work Phone: [facility] 07-31-2023 10:55-0500 Systolic blood pressure 120 mm[Hg] Rohith Kimng DO Work Phone: [facility] 06-15-2023 15:31-0500 Body height 160 cm Anais Muñoz ADVERTISING VICE PRESIDENT-CHARGING PLUG PLACER Work Phone: [facility] 06-15-2023 15:31-0500 Body mass index (BMI) [Ratio] 24.13 kg/m2 Anais Muñoz ADVERTISING VICE PRESIDENT-CHARGING PLUG PLACER Work Phone: [facility] 06-15-2023 15:31-0500 Body temperature 97.81 [degF] Anais Muñoz APRN-CHARGING PLUG PLACER Work Phone: [facility] 06-15-2023 15:31-0500 Body weight 61.78 kg Anais Muñoz ADVERTISING VICE PRESIDENT-CHARGING PLUG PLACER Work Phone: [facility] 06-15-2023 15:31-0500 Diastolic blood pressure 60 mm[Hg] Anais Muñoz APRN-CHARGING PLUG PLACER Work Phone: [facility] 06-15-2023 15:31-0500 Heart rate 81 /min Anais Muñoz APRN-CHARGING PLUG PLACER Work Phone: [facility] 06-15-2023 15:31-0500 SaO2% (BldA) [Mass fraction] 94 % Anais Muñoz APRN-CHARGING PLUG PLACER Work Phone: [facility] 06-15-2023 15:31-0500 Systolic blood pressure 110 mm[Hg] Anais Muñoz APRN-CHARGING PLUG PLACER Work Phone: [facility] 05-31-2022 13:30-0500 Body height 160.02 cm Janice Rahman Other [employer] Other 05-31-2022 13:30-0500 Body mass index (BMI) [Ratio] 26.04 kg/m2 Janice Lacey Other [employer] Other 05-31-2022 13:30-0500 Body temperature 97.8 [degF] Janice Lacey Other [employer] Other 05-31-2022 13:30-0500 Body weight 66.68 kg Janice Lacey Other [employer] Other 05-31-2022 13:30-0500 Diastolic blood pressure 74 mm[Hg] Janice Lacey Other [employer] Other 05-31-2022 13:30-0500 Respiratory rate 18 /min Janice Lacey Other [employer] Other 05-31-2022 13:30-0500 SaO2% (BldA) [Mass fraction] 98 % Janice Lacey Other [employer] Other 05-31-2022 13:30-0500 Systolic blood pressure 118 mm[Hg] Janice Lacey Other [employer] Other 11-30-2021 15:35-0400 Body height 160.02 cm Janice Lacey Other [employer] Other 11-30-2021 15:35-0400 Body mass index (BMI) [Ratio] 25.68 kg/m2 Janice Lacey Other [employer] Other 11-30-2021 15:35-0400 Body temperature 97.7 [degF] Janice Rahman Other [employer] Other 11-30-2021 15:35-0400 Body weight 65.77 kg Janice Rahman Other [employer] Other 11-30-2021 15:35-0400 Respiratory rate 18 /min Janice Rahman Other [employer] Other 11-30-2021 15:35-0400 SaO2% (BldA) [Mass fraction] 96 % Janice Rahman Other [employer] Other Encounters Encounter Date Encounter Type Care Provider Facility Start: 02-06-2025 End: 02-06-2025 Orders Only Rohith Archer DO Work Phone: [facility] Start: 01-31-2025 End: 01-31-2025 Orders Only Rohith Archer DO Work Phone: [facility] Comment on above: Chronic bilateral lo w back pain without sciatica (Primary Dx); Acute pain of left shoulder; Lumbar spondylosis Start: 01-30-2025 End: 01-30-2025 Orders Only Rohith Archer DO Work Phone: [facility] Start: 01-19-2025 End: 01-19-2025 Patient encounter status Rohith Archer DO Work Phone: [facility] Start: 01-19-2025 End: 01-19-2025 Periodic preventive med est patient 40-64yrs Rohith Archer DO Work Phone: [facility] Comment on above: Well adult exam ([place] Dx); Chronic obstructive pulmonary disease, unspecified COPD type (CMS-HCC); Pain in both lower extremities; Chronic bilateral low back pain without sciatica; Acute pain of left shoulder; Ex-cigarette smoker; Need for shingles vaccine Start: 01-19-2025 End: 01-19-2025 ambulatory CRESCENT Mario [facility] Start: 01-19-2025 Encounter for genera l adult medical examination without abnormal findings CRESCENT Mario [facility] Start: 12-26-2024 End: 02-25-2025 Follow-up encounter Rohith Archer DO Work Phone: [facility] Comment on above: HM MAMMOGRAPHY Start: 04-14-2024 End: 04-14-2024 ambulatory Eveline Ozuna MD Facility:[facility] Start: 03-24-2024 End: 03-24-2024 ambulatory Eveline Ozuna MD Facility:[facility] Start: 03-10-2024 End: 03-10-2024 ambulatory Eveline Ozuna MD Facility:[facility] Start: 02-26-2024 End: 02-28-2024 Evaluation and management of inpatient Rohith Archer DO Facility:[facility] Start: 02-24-2024 End: 02-24-2024 Orders Only Rohith Archer DO Work Phone: [facility] Comment on above: Lung nodule, solitar y (Primary Dx) Start: 02-22-2024 End: 02-22-2024 Office outpatient visit 15 minutes Rohith Archer DO Work Phone: [facility] Comment on above: Pre-op evaluation (P rimary Dx); Chronic obstructive pulmonary disease, unspecified COPD type ([facility]); Rectal prolapse Start: 02-22-2024 End: 02-22-2024 Preprocedural examination done Rohith Archer DO Work Phone: [facility] Work Phone: Start: 02-22-2024 End: 02-22-2024 ambulatory CRESCENT Mario [facility] Start: 02-18-2024 End: 02-18-2024 ambulatory Rohith Archer DO Facility:[facility] Start: 02-16-2024 End: 02-16-2024 ambulatory Rohith Archer DO Facility:[facility] Start: 02-09-2024 End: 02-09-2024 ambulatory Eveline Ozuna MD Facility[facility] Start: 02-04-2024 End: 02-04-2024 ambulatory Rohith Archer DO Facility:[facility] Start: 09-01-2023 End: 09-02-2023 [facility] Start: 09-01-2023 Encounter for genera l adult medical examination without abnormal findings [facility] Start: 09-01-2023 End: 09-01-2023 Patient encounter status Rohith Archer DO Work Phone: [facility] Work Phone: Start: 09-01-2023 End: 09-01-2023 Periodic preventive med est patient 40-64yrs Rohith Archer DO Work Phone: [facility] Comment on above: Well adult health ch bobby (Primary Dx); Thoracic region somatic dysfunction; Ex-cigarette smoker; Encounter for screening mammogram for malignant neoplasm of breast; Myalgia Start: 08-07-2023 Orders Only Jany Kuns ADVERTISING VICE PRESIDENT-[employer]GING [employer]ACER Work Phone: [facility] Comment on above: Rib pain on right si de (Primary Dx) Start: 07-31-2023 End: 07-31-2023 Office outpatient visit 15 minutes Rohith Archer DO Work Phone: [facility] Comment on above: Acute pain of left s houlder (Primary Dx) Start: 07-17-2023 End: 07-18-2023 ambulatory SARAY Donato [facility] Start: 07-01-2023 Orders Only Jany Kuns ADVERTISING VICE PRESIDENT-CHARGING PLUG PLACER Work Phone: [facility] Comment on above: Other chest pain (Pr imary Dx); Ventricular premature depolarization Start: 06-29-2023 End: 06-30-2023 ambulatory SARAY GEORGE [facility] Start: 06-17-2023 Orders Only Anais Muñoz ADVERTISING VICE PRESIDENT-CHARGING PLUG PLACER Work Phone: [facility] Comment on above: Other chest pain (Pr imary Dx) Acute chest wall erwin n (Primary Dx) Start: 06-15-2023 End: 06-15-2023 Office outpatient visit 15 minutes Anais Muñoz ADVERTISING VICE PRESIDENT-CHARGING PLUG PLACER Work Phone: [facility] Comment on above: Acute chest wall erwin n (Primary Dx) Start: 05-30-2023 Refill Rohith gramajo DO Work Phone: [facility] Comment on above: Mixed hyperlipidemia Start: 01-14-2023 End: 01-15-2023 ambulatory Rohit YEH Facility:CD:[id number] Start: 12-16-2022 End: 12-17-2022 ambulatory ROHITH ARCHER Facility:[facility] Start: 11-27-2022 ambulatory ROHITH ARCHER Facility :[facility] Start: 09-29-2022 End: 09-30-[address] ROHITH ARCHER Facility:[facility] Start: 05-31-2022 End: 05-31-2022 ambulatory Janice Rahman Facility:[facility] Start: 05-31-2022 Office outpatient vi sit 25 minutes Janice Rahman [facility] Start: 05-31-2022 End: 05-31-2022 ambulatory DO Rohith Furlong Work Phone: [facility] Work Phone: Start: 05-31-2022 End: 05-31-2022 Patient encounter procedure DO Rohith Furlong Work Phone: [facility] Work Phone: Start: 11-30-2021 End: 11-30-2021 ambulatory Janice Rahman Other [employer] Other Start: 11-30-2021 Office outpatient vi sit 15 minutes Janice Rahman [facility] Start: 10-12-2021 End: 10-13-[address] ROHITH Martin [place] Facility: Start: 04-17-2021 End: 04-17-2021 ambulatory Janice Rahman Other [employer] Other Start: 04-17-2021 Office outpatient vi sit 5 minutes Janice Rahman [facility] Procedures Date Procedure Procedure Detail Performing Clinician Start: 01-19-2025 Comprehensive metabo lic panel Rohithgela Lakelong DO Work Phone: Start: 01-19-2025 Lipid panel [...] w/le ast 12 lds w/i&r Anais Muñoz ADVERTISING VICE PRESIDENT-CHARGING PLUG PLACER Work Phone: Start: 06-15-2023 Adult depression scr eening assessment Anais Muñoz ADVERTISING VICE PRESIDENT-CHARGING PLUG PLACER Work Phone: Start: 01-14-2023 Colonoscopy Rohith Fur long DO Work Phone: Start: 12-08-2022 Adult depression scr eening assessment Rohith Archer DO Work Phone: Start: 05-31-2022 Plain chest X-ray DO De nnis Work Phone: Plan of Treatment Date Care Activity Detail Author Start: 01-14-2033 Screening for malign ant neoplasm of colon Colonoscopy [facility] Start: 03-22-2029 DTaP,Tdap and Td Vaccines (2 - Td or Tdap) DTaP,Tdap and Td Vaccines (2 - Td or Tdap) [facility] Start: 01-19-2026 Adult BMI Screening Adult BMI Screen ing [facility] Start: 01-19-2026 Depression Screening Depression Scre ening [facility] Start: 01-19-2026 Tobacco Screening Tobacco Screening [facility] Start: 12-15-2025 Screening for malign ant neoplasm of breast Mammogram [facility] Start: 03-16-2025 Administration of varicella zoster vaccine Zoster (Shingles) Vaccine (2 of 2) [facility] Start: 02-21-2025 Adult BMI Screening Adult BMI Screen ing [facility] Start: 02-21-2025 Depression Screening Depression Scre ening [facility] Start: 02-21-2025 Tobacco Screening Tobacco Screening [facility] Start: 02-03-2025 End: 02-03-2025 Patient encounter procedure 02/03/2025 3:30 PM EDT Appointment [facility] [address] [place] [address] [facility] Start: 02-03-2025 End: 02-03-2025 Patient encounter procedure 02/03/2025 1:30 PM EDT Appointment [facility] [address] [place] [address] [facility] Start: 01-23-2025 COVID-19 Vaccine ( season) COVID-19 Vaccine ( season) [facility] Start: 01-23-2025 Influenza vaccination Influenza Vacc ine [facility] Start: 01-19-2025 End: 01-19-2026 CT Chest for screening WO contrast CT low dose lung screening (Annual) Imaging Routine Ex-cigarette smoker Expected: 01/19/2025, Expires: 01/19/2026 [employer] Work Phone: Comment on above: Expected: 01/19/2025 , Expires: 01/19/2026 Start: 01-19-2025 End: 01-19-2026 US.doppler Extremity arteries - bilateral for physiologic artery study limited Vas art doppler lwr limited single Vascular Ultrasound Routine Pain in both lower extremities Expected: 01/19/2025, Expires: 01/19/2026 [employer] Comment on above: Expected: 01/19/2025 , Expires: 01/19/2026 Start: 01-19-2025 End: 01-19-2026 US.doppler Lower extremity artery - bilateral Vas art duplex lwr bilateral Vascular Ultrasound Routine Pain in both lower extremities Expected: 01/19/2025, Expires: 01/19/2026 [employer] Comment on above: Expected: 01/19/2025 , Expires: 01/19/2026 Start: 01-19-2025 End: 01-19-2026 XR Lumbar spine 2 or 3 Views X-ray spine lumbar 2 or 3 views Imaging Routine Chronic bilateral low back pain without sciatica Expected: 01/19/2025, Expires: 01/19/2026 [employer] Comment on above: Expected: 01/19/2025 , Expires: 01/19/2026 Start: 01-19-2025 End: 01-19-2026 XR Shoulder - left 2 Views X-ray shoulder left minimum 2 views Imaging Routine Acute pain of left shoulder Expected: 01/19/2025, Expires: 01/19/2026 [employer] Comment on above: Expected: 01/19/2025 , Expires: 01/19/2026 Start: 10-05-2024 Screening for malign ant neoplasm of [facility] Start: 08-31-2024 Adult BMI Screening Adult BMI Screen ing [facility] Start: 08-31-2024 Depression Screening Depression Scre ening [facility] Start: 08-31-2024 Tobacco Screening Tobacco Screening [facility] Start: 07-30-2024 Adult BMI Screening Adult BMI Screen ing [facility] Start: 07-30-2024 Depression Screening Depression Scre ening [facility] Start: 07-30-2024 Tobacco Screening Tobacco Screening [facility] Start: 06-29-2024 Adult BMI Screening Adult BMI Screen ing [facility] Start: 06-15-2024 Adult BMI Screening Adult BMI Screen ing [facility] Start: 06-15-2024 Depression Screening Depression Scre ening [facility] Start: 06-15-2024 Tobacco Screening Tobacco Screening [facility] Start: 05-25-2024 Administration of varicella zoster vaccine Zoster (Shingles) Vaccine (1 of 2) [facility] Comment on above: Postponed from 11/16 (Patient Refused) Start: 05-25-2024 COVID-19 Vaccine ( season) COVID-19 Vaccine ( season) [facility] Comment on above: Postponed from 01/23 (Patient Refused) Start: 02-24-2024 End: 02-23-2025 CT Chest limited W contrast IV CT chest with contrast Imaging Routine Lung nodule, solitary Expected: 02/24/2024, Expires: 02/23/[address] [facility] Work Phone: Comment on above: Expected: 02/24/2024 , Expires: 02/23/2025 Start: 01-24-2024 COVID-19 Vaccine ( season) COVID-19 Vaccine ( season) [facility] Start: 01-24-2024 COVID-19 Vaccine () COVID-19 Vaccine ( season) [facility] Start: 01-24-2024 Influenza vaccination Influenza Vacc ine [facility] Start: 12-09-2023 Adult BMI Screening Adult BMI Screen ing [facility] Start: 12-09-2023 Depression Screening Depression Scre ening [facility] Start: 12-09-2023 Tobacco Screening Tobacco Screening [facility] Start: 09-01-2023 End: 09-01-2023 Patient encounter procedure 09/01/2023 3:30 PM EDT [facility] [address] [place] [address] Rohith Archer DO [address], [place] [address] [facility] Start: 09-01-2023 End: 08-31-2024 CT Chest for screening WO contrast CT low dose lung screening (Annual) Imaging Routine Ex-cigarette smoker Expected: 09/01/2023, Expires: 08/31/2024 [employer] Phone: Comment on above: Expected: 09/01/2023 , Expires: 08/31/2024 Start: 09-01-2023 End: 08-31-2024 DBT Breast - bilateral screening Mammography screening bilateral with CAD Imaging Routine Encounter for screening mammogram for malignant neoplasm of breast Expected: 09/01/2023, Expires: 08/31/[address] [facility] [employer] Comment on above: Expected: 09/01/2023 , Expires: 08/31/2024 Start: 07-31-2023 End: 07-30-2024 XR Shoulder - left 2 Views X-ray shoulder left minimum 2 views Imaging Routine Acute pain of left shoulder Expected: 07/31/2023, Expires: 07/30/2024 [employer] Phone: Comment on above: Expected: 07/31/2023 , Expires: 07/30/2024 Start: 07-01-2023 End: 07-01-2024 Echo stress treadmill W/O contrast Echo stress treadmill W/O contrast Cardiac Services Routine Other chest pain Ventricular premature depolarization Expected: 07/01/2023, Expires: 07/01/2024 [employer] Phone: Comment on above: Expected: 07/01/2023 , Expires: 07/01/2024 Start: 06-17-2023 End: 06-17-2024 Exercise stress test study Stress test (exercise only) [facility] Routine Other chest pain Expected: 06/17/2023, Expires: 06/17/2024 [employer] Work Phone: Comment on above: Expected: 06/17/2023 , Expires: 06/17/2024 Start: 06-15-2023 End: 06-15-2024 XR Ribs - left Views and Chest PA X-ray ribs left 3 views with pa chest Imaging Routine Acute chest wall pain Expected: 06/15/2023, Expires: 06/15/2024 [employer] Work Phone: Comment on above: Expected: 06/15/2023 , Expires: 06/15/2024 Start: 01-23-2023 COVID-19 Vaccine () COVID-19 Vaccine () [facility] Start: 01-23-2023 Influenza vaccination Influenza Vacc ine [facility] Start: 2010 Administration of varicella zoster vaccine Zoster (Shingles) Vaccine (1 of 2) [facility] Start: 2000 Screening for malign ant neoplasm of breast Mammogram [facility] Start: 1981 Screening for malign ant neoplasm of cervix Pap Smear [facility] End: 02-23-2025 Creatinine includes GFR, serum Creatinine includes GFR, serum Lab Routine Lung nodule, solitary 1 Occurrences starting 02/24/2024 until 02/23/2025 [facility] Comment on above: 1 Occurrences starti ng 02/24/2024 until 02/23/2025 Immunizations Immunization Date Immunization Notes Care Provider Greg marquez 01-19-2025 zoster vaccine recombinant Rohith Archer DO Work Phone: [facility] 01-19-2025 Immunization, In Clinic,; Translations: [Drug or medicament (substance)] Rohith Archer DO Work Phone: [facility] 01-19-2025 zoster vaccine, unspecified formulation Rohithgela Kimng DO Work Phone: [facility] 03-22-2019 Influenza, injectabl e, Madin [place] Canine Kidney, quadrivalent with preservative Rohith Archer DO Work Phone: [facility] 03-22-2019 tetanus toxoid, redu jenn diphtheria toxoid, and acellular pertussis vaccine, adsorbed Rohith Archer DO Work Phone: [facility] 03-22-2019 influenza virus vaccine, unspecified formulation Rohith Archer DO Work Phone: [facility] Payers Date Payer Category Payer Self-pay [id number] 2016 Commercial Managed C are - POS [employer] [id number] 2016 Private Health Insurance 1960 Unknown [id number] [id number] 9.2.593 1960 Unknown [id number] [id number] 9.2.593 1960 Unknown [id number] 2.16840.1.587900.3.57 9.2.727 1960 Unknown [id number] 2.16840.1.188611.3.57 9.2.727 1960 Unknown [id number] 2.16.840.1.413542.3.57 9.2.1286 1960 Unknown [id number] 2.16.840.1.096521.3.57 9.2.128 1960 Unknown [id number] 2.16.840.1.287879.3.57 9.2.128 1960 Unknown [id number] 2.16.840.1.187389.3.57 9.2.196 1960 Unknown [id number] 2.16.840.1.302343.3.57 9.2.196 1960 Unknown [id number] 2.16.840.1.195180.3.57 9.2. 1960 Unknown [id number] 2.16.840.1.604150.3.57 9.2. 1960 Unknown [id number] 2.16.840.1.276320.3.57 9.2.196 1960 Unknown [id number] 2.16.840.1.234669.3.57 9.2. 1960 Unknown [id number] 2.16.840.1.418534.3.57 9.2. 1960 Unknown [id number] 2.16.840.1.851173.3.57 9.2. 1960 Unknown [id number] 2.16.840.1.926843.3.57 9.2.196 1960 Unknown [id number] 2.16.840.1.270923.3.57 9.2. 1960 Unknown [id number] 2.16.840.1.232796.3.57 9.2. 1960 Unknown [id number] 2.16.840.1.065747.3.57 9.2.128 1960 Unknown [id number] 2.16.840.1.817698.3.57 9.2.1286 1959 Private Health Insurance [id number] Private Health Insurance [id number] [id number] Unknown [id number] 2.16.840.1.478958.3.57 9.2.531 Social History Date Type Detail Facility Unknown if ever smoked [facility] Other Start: 08-25-2022 End: 09-01-2023 Sex Assigned At [employer] Other Start: 1960 Sex Assigned At Female [facility] Start: 08-25-2022 End: 02-22-2024 Tobacco smoking status [facility] Ex-smoker [facility] Start: 11-17-1973 End: 11-28-2020 History of tobacco use Current smoker [facility] Start: 11-17-1973 End: 11-28-2020 History of tobacco use Cigarette Smoker [facility] Start: 08-25-2022 End: 09-01-2023 Cigarettes smoked current (pack per day) - Reported 1 [facility] Start: 08-25-2022 End: 02-22-2024 Tobacco use and exposure Smokeless tobacco non-user [facility] Start: 01-22-2023 End: 02-24-2024 Alcohol intake Lifetime non-drinker (finding) [facility] Do you belong to any clubs or organizations such as rastafarian groups, unions, fraternal or athletic groups, or school groups? No [facility] Are you now , , , , never or living with a partner? Never [facility] How often to you hav e a drink containing alcohol? Never [facility] How many standard dr inks containing alcohol do you have on a typical day? Patient does not drink [facility] Do you feel stress - tense, restless, nervous, or anxious, or unable to sleep at night because your mind is troubled all the time - these days [OSQ] Only a little [facility] Start: 06-25-1961 Sex Assigned At Not on file [employer] Start: 12-26-2014 Sex Female (finding) [employer] Clinical Notes 04-17-2021 to 01-19-2025 Rohith Archer, DO - 01/19/2025 3:15 PM EDTRohith Archer, DO - 02/22/2024 11:00 AM EDTRohith Archer, DO - 09/01/2023 3:30 PM EDTMjose Candice Muñoz, ADVERTISING VICE PRESIDENT- CHARGING PLUG PLACER - 08/07/2023 12:21 PM EDT Note Date [...] Chronic obstructive pulmonary disease, unspecified COPD type ([facility]) She has known COPD. She had not [...] check electrolytes. Continue with pickle juice an [id number] supplements for leg cramps. Ensure adequate hydration. Chronic bilateral low back pain without sciatica - X-ray spine lumbar 2 or 3 views; Future She is having chronic low back pain without any imaging thumb going to check an x-ray of her lumbar spine. Consider pain management, physical therapy. Can try [id number] analgesics Acute pain of left shoulder - X-ray shoulder left minimum 2 views; Future Symptoms seem to be consistent with impingement syndrome possibly rotator cuff injury. Try shoulder exercises. Consider cortisone injections, physical therapy. Check x-ray of left shoulder We will recheck in 1 year but she can come back sooner for further management of her shoulder and back pain. Bruno Serrato, MS3 [facility] documented in this encounter [facility] 02-29-2024 Note Subjective Patient feels well had [...] Auto 7.4 % (Low) 02/27/2024 04:54 EDT [place] Auto 9.5 % 02/28/2024 04:54 EDT [place] Auto 7.8 % 02/27/2024 04:54 EDT Eos Auto 0.8 % 02/28/2024 04:54 EDT Eos Auto 0.0 % 02/27/2024 04:54 EDT Basophil Auto 0.8 % 02/28/2024 04:54 EDT Basophil Auto 0.3 % 02/27/2024 04:54 EDT Neutro Absolute 5.3 x10 Neutro Absolute 9.9 x10 Lymph Absolute 2.2 x10 Lymph Absolute 0.9 x10 Montgomery Absolute 0.8 x10 Montgomery Absolute 0.9 x10 Eos Absolute 0.1 x10 [...] Senait RODRÍGUEZ, Iván Kimble 03/02/24 10:56 EDT [facility] 02-26-2024 Note Clinical Information Procedure: Sigmoid resection [...] colon, removed for repair of rectal prolapse. [id number] Markie Garcia MD PhD (Electronically signed by) Verified: 03/02/24 14:20 [facility] Comment on above: Performed By: #### S LA #### [facility] (DEFAULT) [address] [place] [address] 02-22-2024 History of Present illness Narrative Subjective [...] chest pain like when she goes to [employer] and [place]. She had pre-surgical testing last week. [...] Head: Normocephalic. Nose: Nose normal. Mouth/Throat: Lips: Bruce. Mouth: Mucous membranes are moist. Dentition: Has [...] surgeon for treatment. documented in this encounter [facility] [employer] 09-01-2023 History of Present illness Narrative Subjective [...] ear normal. Nose: Nose normal. Mouth/Throat: Lips: Bruce. Mouth: Mucous membranes are moist. Pharynx: Oropharynx [...] total) before bedtime. documented in this encounter [employer] 08-07-2023 History of Present illness Narrative Spoke [...] Casey 08/07/23 1226 documented in this encounter [facility] 07-31-2023 History of Present illness Narrative [...] Negative empty can test. Equivocal impingement sign etesl-Ggpygnr-Shcfrop and Neer's test. Negative Adson's test. Neurological: [...] Shoulder exercises given. documented in this encounter [employer] 06-15-2023 History of Present illness Narrative Subjective [...] Casey 06/15/23 1741 documented in this encounter [facility] 12-16-2022 Note Chief Complaint consultation for screening [...] Recorded SARS-CoV-2 (COVID-19) mRNA-1273 vaccine 09/20/2020 Recorded [facility] Comment on above: Result Comment: [...] May, Right-sided chest pain (ICD-10 - R07.9) [employer] Other 07-09-2022 Evaluation note* Encounter Date Diagnosis [...] Patient care instructions given in writing by [facility] Care At Home document. [employer] Other 11-24-2021 Evaluation note* Encounter Date Diagnosis [...] Patient care instructions given in writting by [facility] Care At Home document. [employer] Other evaluation noteNo assessment information available [facility] Work Phone: evaluation note* Diagnosis Mixed hyperlipidemia [facility] Diagnosis Acute chest wall pain- Primary [facility] Diagnosis Other chest pain- Primary [facility] Diagnosis Acute chest wall pain- Primary [facility] Diagnosis Other chest pain- Primary Ventricular premature depolarization Other premature beats documented in this encounter [facility] Diagnosis Acute pain of left shoulder- Primary documented in this encounter [facility]* Diagnosis Rib pain on right side- Primary [facility]* Diagnosis Well adult health check- Primary Unspecified general medical examination Thoracic region somatic dysfunction Nonallopathic lesion of thoracic region, not elsewhere classified Ex-cigarette smoker Personal history of tobacco use, presenting hazards to health Encounter for screening mammogram for malignant neoplasm of breast Myalgia Unspecified myalgia and myositis [facility]* Diagnosis Pre-op evaluation- Primary Chronic obstructive pulmonary disease, unspecified COPD type ([facility]) Rectal prolapse [facility] Diagnosis Lung nodule, solitary- Primary [facility]* Diagnosis Well adult exam- [...] inoculation against varicella [facility] Diagnosis Chronic bilateral low back pain without sciatica- Primary Acute pain of left shoulder Lumbar spondylosis Lumbosacral spondylosis without myelopathy documented in this encounter [facility] general Narrative - Reported* Type Description Date Surgical History tonsillectomy Surgical History cholecystectomy Surgical History tubal ligation Surgical History cyst removal from neck Hospitalization History see above [employer] Other InstructionsNot on filedocumented in this encounter [facility] System[facility]ructionsNot on filedocumented in this encounter [facility] SystemInstructionsNot on filedocumented in this encounter [facility]ructionsNot on filedocumented in this encounter [facility]* Attachments The following attachments cannot be sent through Care Everywhere. * Rotator Cuff Tendinitis Stretching Exercises (Citizen Of [place]) * Shoulder Bursitis Exercises (Citizen Of [place]) [facility]ructions[facility] on file documented [facility] SystemInstructionsNot on file documented in this encounterProMedisd [facility]elti SystemInstructionsNot on file documented in this [facility] SystemInstructionsNot on file documented in [facility] SystemInstructionsNot on file documented in this [facility] SystemInstructionsNot on file documented in this encounter[facility] Advance Directives Advance Directive Response Recorded [...] with contrast Rohith Archer, DO [address] [facility], [place] [address] Referral ID Status Reason Start Date Expiration Date V isits Requested Visits Authorized [id number] Pending Review 02/24/2024 02/23/2025 1 1 Specialty Diagnoses / Procedures Referred By Contac t Referred To Contact Diagnoses Ex-cigarette smoker Procedures CT low dose lung screening (Annual) Rohith Archer, DO [address] [facility], [place] [address] Referral ID Status Reason Start Date Expiration Date V isits Requested Visits Authorized [id number] Pending Review 09/01/2023 08/31/2024 1 1 Specialty Diagnoses / Procedures Referred By Contac t Referred To Contact Diagnoses Other chest pain Ventricular premature depolarization Procedures Echo stress treadmill W/O contrast Anais Muñoz, ADVERTISING VICE PRESIDENT-CHARGING PLUG PLACER [address] [place] [address] Referral ID Status Reason Start Date Expiration Date V isits Requested Visits Authorized [id number] Pending Review 07/01/2023 06/30/2024 5 5 Specialty Diagnoses / Procedures Referred By Contac t Referred To Contact Diagnoses Other chest pain Procedures Stress test (exercise only) Anais Muñoz, ADVERTISING VICE PRESIDENT-CHARGING PLUG PLACER [address] [place] [address] Referral ID Status Reason Start Date Expiration Date V isits Requested Visits Authorized [id number] Pending Review 06/17/2023 06/16/2024 5 5 Additional [...] Rohith Archer DO Primary Care Provider Active [employer] Supervisor Relationship Specialty Start Date End Date Gianni Rohith MartinDO [address] [place] [address] PCP - General Family Medicine 06/02/22 [employer] Supervisor Relationship Specialty Start Date End Date Gianni Rohith MarioDO [address] [place] [address] PCP - General Family Medicine 06/02/22 [employer] Supervisor Relationship Specialty Start Date End Date JayaeltonRohithDO [address] [place] [address] PCP - General Family Medicine 06/02/22 [employer] Supervisor Relationship Specialty Start Date End Date GianniHectorRohith MarioDO [address] [place] [address] PCP - General Family Medicine 06/02/22 Clay Shop Supervisor Relationship Specialty Start Date End Date Gianni Rohith MarioDO [address] [place] [address] PCP - General Family Medicine 06/02/22 Clay Shop Supervisor Relationship Specialty Start Date End Date Rohith Archer DO [address] [place] [address] PCP - General Family Medicine 06/02/22 Clay Shop Supervisor Relationship Specialty Start Date End Date JayabhanuRohith gramajo DO [address] [place] [address] PCP - General Family Medicine 06/02/22 Clay Shop Supervisor Relationship Specialty Start Date End Date JayabhanuRohith gramajo DO [address] [place] [address] PCP - General Family Medicine 06/02/22 Clay Shop Supervisor Relationship Specialty Start Date End Date JayabhanuRohith gramajo DO [address] [place] [address] PCP - General Family Medicine 06/02/22 [employer] Shop Supervisor Relationship Specialty Start Date End Date JayabhanuRohith gramajo DO [address] [place] [address] PCP - General Family Medicine 06/02/22 Clay Shop Supervisor Relationship Specialty Start Date End Date JayabhanuRohith gramajo DO [address] [place] [address] PCP - General Family Medicine 06/02/22 Clay Shop Supervisor Relationship Specialty Start Date End Date JayabhanuRohith gramajo DO [address] [place] [address] PCP - General Family Medicine 06/02/22 Clay Shop Supervisor Relationship Specialty Start Date End Date Rohith Archer DO [address] [place] [address] [address] PCP - General Family Medicine 06/02/22 Clay Shop Supervisor Relationship Specialty Start Date End Date Rohith Archer DO [address], [place] [address] PCP - General Family Medicine 06/02/22 Clay [employer] Supervisor Relationship Specialty Start Date End Date Rohith Archer DO [address], [place] [address] PCP - General Family Medicine 06/02/22 Goals (unrecognized section and content) Goals may be documented in a n alternate section INFORMATION SOURCE (unrecogn ized section and content) DATE CREATED AUTHOR 06/18/2022 [facility] DATE CREATED AUTHOR AUTHOR'S ORGANIZ ATION 10/03/2022 [facility] DATE CREATED AUTHOR AUTHOR'S ORGANIZ ATION 01/22/2023 [facility] DATE CREATED AUTHOR AUTHOR'S ORGANIZ ATION 07/24/2023 [facility] DATE CREATED AUTHOR AUTHOR'S ORGANIZ ATION 09/03/2023 [facility] DATE CREATED AUTHOR AUTHOR'S ORGANIZ ATION 04/18/2024 [facility] DATE CREATED AUTHOR AUTHOR'S ORGANIZ ATION 01/21/2025 [facility] [employer] FOR RECORDS PERTAINING TO PATIENTS [...] BE BASED ON THE PRIMARY CLINICAL RECORDS. [facility] [email or web address] [facility] provides no warranty or guarantee of the accuracy or completeness of information in this document.
--- NOTE | 2025-02-27 15:14 | P.CN_ITS ---
Consult Note: HPI Data of Consult Patient: known to practice within the last 3 years Consult date: 02/27/25 Requesting Physician: Mervin Kennedy MD Primary Care Provider: RELL JEFFERSON Consult Narrative Reason for consult: left shoulder pain Narrative: 64yof who presents for in office injection. continues to have left shoulder pain. cc:: CC: Mervin Kennedy MD Review of Systems ROS Status of ROS 10 or more systems reviewed and unremark able except as noted in history and below PFSH PFSH Medical History FHx: cholecystectomy ?Z83.79 - Family history of other diseases of the digestive system (ICD-10) Surgical History H/O tubal ligation ?Z98.51 - Tubal ligation status (ICD-10) Hx of tonsillectomy ?Z90.89 - Acquired absence of other organs (ICD-10) H/O basal cell carcinoma excision ?Z98.890 - Other specified postprocedural states (ICD-10) ?Z85.828 - Personal history of other malignant neoplasm of skin (ICD-10) Family History Other Family history of COPD (chronic obstructive pulmonary disease) Family history of cancer Family history of myocardial infarction Social History Within the past year, how often did you have a drink containing alcohol: never Score interpretation: A score less than 3 is consistent with normal alcohol consumption. Smoking status: Former smoker Non-prescribed substance use: denies use Previous occupational history: FACTORY MAINTENANCE MANAGER Highest level of school completed/degree received: some college, no degree Little interest or pleasure in doing things: not at all Feeling down, depressed, or hopeless: not at all Meds Home Medications and Allergies Home Medications ?Medication ?Instructions ?Recorded ?Confirmed ?Type baclofen 10 mg tablet See Rx Instructions .Route 0 02/01/25 Rx .COMPLEX PRN muscle spasm #30 tabs fluticasone fur. 100 mcg-umeclid 1 inh inhalation LUIS FERNANDO Y 02/01/25 02/01/25 History 62.5 mcg-vilant 25 mcg inhalat.powder (Trelegy Ellipta) Allergies Allergy/AdvReac Type Severity Reaction Status Date / Time No Known Drug Allergies Allergy Verified 01/13/25 16:54 Exam Narrative Exam Narrative: Psych-alert and oriented x 3.? Attentive and appropriate, constitutionally normal, displays normal mood and affect per situation.? There are no obvious deficits in memory, reasoning, or intellect.? Skin-no obvious rashes, bruising, or erythema noted to the patient's area of pain. Extremities-upper extremities are warm with minimal edema and palpable pulses. Cervical- tenderness to palpation noted in the cervical spine and paraspinal musculature.? Pain is elicited with extension, and lateral rotation of the cervical spine.? Range of motion is slightly diminished due to pain. Shoulder - pain to palpation in left shoulder. pain elicited with abduction, external rotation of left shoulder. Coordination remains intact.? Gait remains non-antalgic.? Assessment and Plan Assessment and Plan (1) Osteoarthritis of left shoulder: Qualifiers: Osteoarthritis type: primary Qualified Code(s): M19.012 - Primary osteoarthritis, left shoulder Plan 64yof who presents for in office injection. continues to have left shoulder pain, so would like to proceed with left shoulder injection. follow up in 3 months. procedure: left shoulder injection medications: bupivacaine 0.25% 4cc, depomedrol 40mg I explained the details of the procedure to the patient including the risks, benefits, and alternatives.? We had an informed discussion.? The patient verbalized understanding and signed the consent form.? All questions were answered appropriately.? A time-out was performed.? After obtaining a comfortable seated position, the skin overlying the left shoulder was prepped with alcohol 3 times.? The sulcus between the head of the humerus and the acromion was identified.? The needle was inserted in a sterile manner 2 cm inferior and medial to the posterolateral corner of the acromion and was directed anteriorly toward the coracoid process. The contents of the syringe were gently injected without any resistance into the joint space after negative aspiration for blood or other bodily fluids.? The needle was removed and pressure was applied at the injection site to decrease the incidence of ecchymosis and hematoma formation.? A sterile bandage was applied.
== END 2025-02-27 14:43 | disposition home or self-care (01) ==
LOC: PM 14:43
PROVIDERS: PCP Family Medicine; Visit Provider Anesthesiology
DX: M19.012 Primary osteoarthritis, left shoulder (principal)
CPT/HCPCS: 20610; J0665; J1010

== ENCOUNTER 2025-05-10 15:15 | Outpatient (OUT) | payer OTHER, SELFPAY ==
--- OUTSIDE RECORDS SUMMARY | 2025-05-10 15:18 | XMS_ITS | Clinical Summary ---
Author Organization [employer] [facility] linic Address [address] [place] [address] Care Team Providers Care Director Health Name Role Phone No, Pcp UTILIZATION MANAGEMENT UM NURSE Primary Care Provider Unavailabl e Social History Tobacco UseTypesPacks/DayYears UsedDateSmoking Tobacco: Never Assessed CommentsUnknownSex and Gender InformationValueDate RecordedSex Assigned at Not on fileLegal BllRwfscw67/09/2020 10:07 AM ESTGender IdentityNot on file Sexual OrientationNot on file Plan of Treatment Not on file Medical Devices Not on file Care Teams Team MemberRelationshipSpecialtyStart DateEnd Date No, Pcp, UTILIZATION MANAGEMENT UM NURSE N/A Do not use PCP - GeneralFakyly Nukjsuuz27/9/20
--- OUTSIDE RECORDS SUMMARY | 2025-05-10 15:18 | XMS_ITS | Clinical Summary ---
Author Organization [employer] Address [id number] [address] [place] [address] Care Team Providers Care Gun Examiner Name Role Phone JulioRohith gramajo Primary Care Provider [phone]- [phone] Allergies No known active allergies Medications MedicationSigDispense QuantityRefillsLast FilledStart DateEnd DateStatus polycarbophil (FIBER, CALCIUM POLYCARBOPHIL,) 625 mg tablet Take 1 tablet (625 mg total) by mouth.3Active naproxen (NAPROSYN) 500 mg tablet Take 1 tablet (500 mg total) by mouth in the morning and 1 tablet (500 mg total) in the evening. Take with meals. 60 tablet 5Active atorvastatin (LIPITOR) 20 mg tablet Take 1 tablet (20 mg total) by mouth in the morning. 90 tablet 5Active imcmqszenqh-pbwivtfyn-ymdxdnsg (TRELEGY ELLIPTA) 100-62.5-25 mcg blister with device Inhale 1 puff in the morning. 60 each 5Active Active Problems ProblemNoted DateDiagnosed DateChronic bilateral low back pain without sciatica 5Acute pain of left /28/2025Mixed jwbogfquctokvr99/22/2024Ex- cigarette fkhfed2508/25/2022Exudative age-related macular degeneration of right eye07/03/2020OPD (chronic obstructive pulmonary disease) Resolved Problems ProblemNoted DateDiagnosed DateResolved FrtnDallbtrjcl14/03/202309/ Immunizations ImmunizationAdministration DatesNext DueInfluenza, Injectable, MDCK, Ybmuujmpritj45/29/0215Tjvj72/29/2019Zoster Vaccine Czxzuiziwlp53/28/2025 Family History Medical HistoryRelationNameCommentsHeart diseaseBrotherHeart diseaseFatherJames Lung cancerMotherPatriciaCOPDSister 1SilviaHeart attackSister 2KatherineHeart diseaseSister 2KatherineLung cancerSister 2KatherineRelationNameStatusComments BrotherDeceasedFatherJamesAliveMotherPatriciaDeceasedSister 1SilviaDeceased Sister 2KatherineDeceasedSon 1AliveSon 2AliveSon 3Alive Social History Tobacco UseTypesPacks/DayYears UsedDateSmoking Tobacco: HfshlgFujphaatcw973 11/17/1973 - 11/28/2020mokeless Tobacco: Never Tobacco Cessation:Counseling Given: Not Answered Alcohol UseStandard Drinks/WeekCommentsNever0 (1 standard drink = 0.6 oz pure alcohol)[facility] UtilitiesAnswerDate RecordedIn the past 12 months has the Tumblr, oil, or water Drillinginfo threatened to shut off services in your home?No 09/01/2023Social Connection and Isolation PanelAnswerDate RecordedIn a typical week, how many times do you talk on the phone with family, friends, or neighbors?More than three times a week08/25/2022How often do you get together with friends or relatives?More than three times a week08/25/2022How often do you attend pentecostal or scientology services?Never08/25/2022o you belong to any clubs or organizations such as pentecostal groups, unions, fraternal or athletic groups, or school groups?No08/25/2022How often do you attend meetings of the clubs or organizations you belong to?Never08/25/2022re you , , , , never , or living with a partner?Never yeeqhsr1408/25/2022 AUDIT-CAnswerDate RecordedQ1: How often do you have a drink containing alcohol? Never08/25/2022Q2: How many drinks containing alcohol do you have on a typical day when you are drinking?Patient does not drink08/25/2022Q3: How often do you have six or more drinks on one occasion?Never08/25/2022Overall Financial Resource Strain (CARDIA)AnswerDate RecordedHow hard is it for you to pay for the very basics like food, housing, medical care, and heating?Not hard at all 08/25/2022HQ-2AnswerDate RecordedTotal Ahggy861Finuniversity of [facility] hospital [place] of Occupational Health - Occupational Stress QuestionnaireAnswerDate RecordedDo you feel stress - tense, restless, nervous, or anxious, or unable to sleep at night because yourmind is troubled all the time - these days?Only a emfopf2008/25/2022 Exercise Vital SignAnswerDate RecordedOn average, how many days per week do you engage in moderate to strenuous exercise (like a brisk walk)?0 days08/25/2022On average, how many minutes do you engage in exercise at this level?0 min 08/25/2022RAPARE - TransportationAnswerDate RecordedIn the past 12 months, has lack of transportation kept you from medical appointments or from getting medications?No08/25/2022In the past 12 months, has lack of transportation kept you from meetings, work, or from getting things needed for daily living?No 08/25/2022Housing InstabilityAnswerDate RecordedAre you worried or concerned that in the next two months you may not have stable housing that you own, rent or stay in as a part of a household?No08/25/2022hildcareAnswerDate RecordedDo problems getting children's book author make it difficult for you to work or study?No 08/25/2022EmploymentAnswerDate RecordedDo you need help finding a local career center and/or a training program?No08/25/2022Hunger ScreeningAnswerDate Recorded Within the past 12 months we worried whether our food would run out before we got money to buy more.Never True01/19/2025Within the past 12 months the food we bought just didn't last and we didn't have money to get more.Never True 01/19/2025Purpose - LifeAnswerDate RecordedI have a purpose and direction in my life.Agree09/01/2023CommentsNoSex and Gender InformationValueDate RecordedSex Assigned at BirthNot on fileLegal CzqEnstgm23/04/2015 7:32 PM EDT Gender IdentityNot on fileSexual OrientationNot on file Last Filed Vital Signs Vital SignReadingTime TakenCommentsBlood Hvjsxsev565/8208 3:19 PM EDT Nneyk3978 3:19 PM OXHXrrdovpcdvm17.7 ??C (98 ??F)01/19/2025 3:19 PM EDT Respiratory Jcak2750 3:19 PM EDTOxygen Bseybqvyki60%01/19/2025 3:19 PM EDTInhaled Oxygen Concentration--Alcniy85.7 kg (136 lb)01/19/2025 3:19 PM EDT Epyfpf227 cm (5' 2.99 )01/19/2025 3:19 PM EDTBody Mass Index24.108 3:19 PM EDT Plan of Treatment Health MaintenanceDue DateLast DoneCommentsPap Smear1981RSV ( or age 60+ yrs) (1 - Risk 60-74 years 1-dose series)2020OVID-19 Vaccine (2024- season), 10/18/2020, 09/20/2020Influenza Vaccine Zoster (Shingles) Vaccine (2 of 2) Abqyydldx33, 10/06/2023dult BMI Dtzfnyvtk64 Depression Asytynigw54Tobacco Egultdwys01 DTaP,Tdap and Td Vaccines (2 - Td or Tdap)Colonoscopy Medical Devices Not on file Procedures Procedure NamePriorityDate/TimeAssociated DiagnosisCommentsHM MAMMOGRAPHYRoutine 12/15/2024 10:51 AM EDTHM ZNKHDEXNCNEXdibzbi05/23/2023 11:28 AM EDTfrom Last 3 Months or Most Recently Relevant to Health Maintenance Results * HM MAMMOGRAPHY (12/15/2024 10:51 AM EDT)Anatomical RegionLateralityModality Other Narrative Authorizing ProviderResult TypeResult StatusNot In System Ref ProvHEALTH MAINTENANCEFinal Result * HM COLONOSCOPY (01/14/2023 11:28 AM EDT) Narrative Authorizing ProviderResult TypeResult StatusScanning Provider ExternalHEALTH MAINTENANCEFinal ResultPerforming OrganizationAddressCity/State/ZIP CodePhone Number MANUALLY TRANSCRIBED RESULTS from Last 3 Months or Most Recently Relevant to Health Maintenance Insurance Care Teams Team MemberRelationshipSpecialtyStart DateEnd Date Rohith Archer DO [address], [place] [address] PCP - GeneralFamily Medicine06/02/22
--- OUTSIDE RECORDS SUMMARY | 2025-05-10 15:18 | XMS_ITS | Clinical Summary ---
Author Organization [facility] Address [address] [place] [address] Care Team Providers Care Potato Spotter Name Role Phone Unavailable Primary Care Provider Unavailabl e Social History Tobacco UseTypesPacks/DayYears UsedDateSmoking Tobacco: Never Assessed CommentsUnknownSex and Gender InformationValueDate RecordedSex Assigned at Not on fileLegal HzqMwclhy31/15/2023 11:00 PM EDTGender IdentityNot on file Sexual OrientationNot on file Last Filed Vital Signs Vital SignReadingTime TakenCommentsBlood Qkwuiflg397/7803/16/2020 12:00 PM EDT Pulse--Temperature--Respiratory Rate--Oxygen Saturation--Inhaled Oxygen Concentration--Ldlkmp87.7 kg (125 lb)03/19/2020 12:00 PM SCEHhmzkj818 cm (5' 3 ) 03/19/2020 12:00 PM EDTBody Mass Index22.141 12:00 PM EDT Plan of Treatment Not on file Insurance * Guarantor: Letitia Angeles TypeRelation to PatientDate of PhoneBilling AddressPersonal/TpqkaqRoyc08/25/1961 [address] [place] [address]
--- NOTE | 2025-05-10 15:35 | P.CN_ITS ---
Consult Note: HPI Data of Consult Patient: known to practice within the last 3 years Requesting Physician: Selena Boykin NP Primary Care Provider: RELL JEFFERSON Consult Narrative Reason for consult: left shoulder pain Narrative: Letitia Angeles a 64 year old female with chronic left shoulder pain due to OA presents for evaluation, since last visit underwent left shoulder injection with mild relief for 3-4 weeks but pain has returned to baseline. utilizing baclofen 5-10mg hs prn and excederin prn, denies side effects. pain today 4/10 aching at all times sharp with movement increasing at times to 9/10. denies numbness, tingling, weakness to LUE. pain increasing with twisting head, lying, lifting arm, lifting objects, and activity. cc:: CC: Sleena Boykin NP Review of Systems ROS Musculoskeletal Reports: neck pain and joint pain PFSH PFS Medical History FHx: cholecystectomy ?Z83.79 - Family history of other diseases of the digestive system (ICD-10) Surgical History H/O tubal ligation ?Z98.51 - Tubal ligation status (ICD-10) Hx of tonsillectomy ?Z90.89 - Acquired absence of other organs (ICD-10) H/O basal cell carcinoma excision ?Z98.890 - Other specified postprocedural states (ICD-10) ?Z85.828 - Personal history of other malignant neoplasm of skin (ICD-10) Family History Other Family history of COPD (chronic obstructive pulmonary disease) Family history of cancer Family history of myocardial infarction Social History Within the past year, how often did you have a drink containing alcohol: never Score interpretation: A score less than 3 is consistent with normal alcohol consumption. Smoking status: Former smoker Non-prescribed substance use: denies use Previous occupational history: [employer] AR[employer] Highest level of school completed/degree received: some college, no degree Little interest or pleasure in doing things: not at all Feeling down, depressed, or hopeless: not at all Meds Home Medications and Allergies Home Medications ?Medication ?Instructions ?Recorded ?Confirmed ?Type baclofen 10 mg tablet See Rx Instructions .Route 0 02/01/25 Rx .COMPLEX PRN muscle spasm #30 tabs fluticasone fur. 100 mcg-umeclid 1 inh inhalation LUIS FERNANDO Y 02/01/25 02/01/25 History 62.5 mcg-vilant 25 mcg inhalat.powder (Trelegy Ellipta) Allergies Allergy/AdvReac Type Severity Reaction Status Date / Time No Known Drug Allergies Allergy Verified 01/13/25 16:54 Exam Constitutional Documenting provider has reviewed patient's vital signs: yes Common normals: no apparent distress, oriented x3 and alert General appearance: cooperative HENMT Common normals: normocephalic, hearing grossly normal bilaterally and moist oral mucous membranes Head and scalp: normocephalic Eye Common normals: PERRL Pupil: PERRL Neck & C-Spine Common normals: full ROM General: normal visual inspection Cervical spine: cervical ROM abnormal; no pain with cervical ROM and no cervical spine tenderness Other: negative spurlings sensation intact BUE Chest Common normals: inspection of chest normal Respiratory Common normals: normal respiratory effort, no retractions and no use of accessory muscles Extremity Left upper extremity: shoulder joint Other: limited ROM with crossbody adduction and overhead reaching. positive empty can, posterior liftoff, and apleys scratch test stregth 4/5 in LUE and 5/5 in RUE Neuro Common normals: oriented x3 Sensorium/orientation: alert Psych Common normals: mental status grossly normal, thought process normal, cooperative, affect normal, speech normal and activity/motor behavior normal Speech: normal speech Thought process: normal thought process Results Additional Findings Additional findings: If on a controlled substance or opioids, I have checked an [place]AR[place] report on this patient and there are no aberrancies noted in the prescribing history.??If on a controlled substance or opioid a drug screen was completed and reviewed within the last year, and if there has not been a drug screen completed we ordered one today to monitor higher risk, state monitored pain medication use. As part of providing excellent, safe, comprehensive care, the following was completed at our patient's visit: 1. A medication reconciliation and review to ensure accurate knowledge of current/active medications, including asking our patients to inform us about any joep-tbj-mhnvqyc medications or herbal remedies/nutritional supplements/alternative remedies. 2. A review to specifically ensure our patients have had annual screening for screening for depression, screening for tobacco use, and screening for unhealthy alcohol use. For concerning screenings had a discussion with the patient, provided patient education, and recommended follow-up with primary care provider when appropriate. If patient noted with a risk of falling, they received education on strength, gait, and balance training to prevent future risk of falling. Portions of this note may have been carried over from the previous visit and updated as appropriate. Please note this office utilizes paper charting in addition to the electronic medical record. A list of current medications, vitals, and PMH is available there as the clinical staff outside of myself do not have access to [facility] charting during the clinic day operations. As part of providing quality comprehensive care the current medications, vitals, and PMH were reviewed in the paper chart. Assessment and Plan Assessment and Plan (1) Tendinopathy of rotator cuff: (2) Osteoarthritis of left shoulder: Qualifiers: Osteoarthritis type: primary Qualified Code(s): M19.012 - Primary osteoarthritis, left shoulder (3) Myalgia, other site: Plan defer left shoulder MRI and orthopedic referral at this time due to cost. no significant neck pain on exam, defer cervical xray. continue hep as tolerated for low back pain, finding benefit and cannot afford PT. dc otc nsaids, start lodine 400mg bid prn pain take with food. risks vs benefits reviewed, pt will start after she has been cleared by opthalmologist with upcoming eye surgeries. f/u around 6 weeks to evaluate response to medications
== END 2025-05-10 15:16 | disposition home or self-care (01) ==
LOC: PM 15:15
PROVIDERS: PCP Family Medicine; Visit Provider Nurse Practitioner
DX: M19.012 Primary osteoarthritis, left shoulder (principal); M79.18 Myalgia, other site; M75.102 Unspecified rotator cuff tear or rupture of left shoulder, not specified as traumatic
CPT/HCPCS: G0463